=== PATIENT | female | born 1945 | race Caucasian/White ===

== ENCOUNTER → 2016-09-23 | Outpatient (CLI) | payer MEDICARE ==
--- NOTE | 2016-09-23 14:13 | XR ---
EXAMINATION TYPE: XR chest 2V DATE OF EXAM: 09/23/2016 2:06 PM COMPARISON: Chest x-ray June 26, 2016. HISTORY: Cough and congestion for 10 days possible pneumonia. TECHNIQUE: Frontal and lateral views of the chest are obtained. FINDINGS: There is no focal air space opacity, pleural effusion, or pneumothorax seen. The cardiac silhouette size is within normal limits with atherosclerotic thoracic aorta. The osseous structures are intact. IMPRESSION: No suspicious acute infiltrate is present. No significant change from prior.
== END | disposition home or self-care (01) ==
LOC: RADXRMAIN 13:47
PROVIDERS: ATTEND Family Medicine
DX: J18.9 Pneumonia, unspecified organism (principal)
CPT/HCPCS: 71020

== ENCOUNTER → 2016-10-03 | Outpatient (CLI) | payer MEDICARE ==
--- NOTE | 2016-10-03 14:23 | MR ---
EXAMINATION TYPE: MR lumbar spine wo con DATE OF EXAM: 10/03/2016 1:54 PM COMPARISON: NONE HISTORY: low back pain for years TECHNIQUE: Multiplanar, multisequence images of the lumbar spine were acquired. L1-L2: Normal disc appearance without desiccation. No herniation, protrusion or disc bulging. No ca nal stenosis is present. Foramina are patent bilaterally. L2-L3: Normal disc appearance without desiccation. No herniation, protrusion or disc bulging. No ca nal stenosis is present. Foramina are patent bilaterally. L3-L4: Facet arthropathy changes present with hypertrophy of the ligamentum flavum encroaching on the lateral recesses. Circumferential posterior disc bulge causes minimal anterior mass effect on the th ecal sac. L4-L5: Facet arthropathy changes with hypertrophy of the ligamentum flavum encroaches upon the latera l recesses. No significant central canal stenosis or sizable disc herniation. L5-S1: Normal disc appearance without desiccation. No herniation, protrusion or disc bulging. No ca nal stenosis is present. Foramina are patent bilaterally. Lumbar segments are intact. No paraspinal masses are identified. Conus medullaris has a normal appe arance. Mild anterolisthesis grade 1 L4-5. Loss of disc height and signal at L1-2, L3-4, L4-5 compati ble with disc desiccation and degenerative disc disease, there is multilevel spondylosis. Minimal end plate discogenic marrow signal change, spondylosis present at multiple levels. Probable parapelvic cysts involving the left kidney. IMPRESSION: Mild degenerative disc disease, facet arthropathy. No sizable disc herniation. Additional findings ab ove, spondylolisthesis L4-5. Correlate with plain film prior to any intervention.
== END | disposition home or self-care (01) ==
LOC: RADMRIMAIN 13:04
PROVIDERS: ATTEND Family Medicine
DX: M51.36 Other intervertebral disc degeneration, lumbar region (principal); M43.16 Spondylolisthesis, lumbar region; M46.96 Unspecified inflammatory spondylopathy, lumbar region
CPT/HCPCS: 72148

== ENCOUNTER → 2017-03-23 | Outpatient (CLI) | payer MEDICARE ==
--- NOTE | 2017-03-23 09:49 | USB ---
EXAMINATION TYPE: US breast complete RT DATE OF EXAM: 03/23/2017 COMPARISON: Mammogram dated 03/23/2017. CLINICAL HISTORY: N63 LUMP IN BREAST. Right breast ultrasound was performed from the 1:00 to 12:00 positions including the axillary tail. C orresponding to the palpable abnormality and mammographic abnormality with in the right breast, just deep to the skin there is a 0.5 x 0.4 x 0.5 cm anechoic, avascular cyst with a well-defined posterior wall and increased through transmission. This is located at the 1:00 position in zone a. This is a b enign finding warranting no further follow-up. Incidentally noted at the 10:00 position in zone a there is a benign-appearing anechoic cyst with a w ell-defined posterior wall measuring 3.5 x 0.6 cm. This is a benign finding and warrants no further f ollow-up. IMPRESSION: Benign findings. Recommendation is for annual screening mammography and clinical managem ent of the palpable cyst.
--- NOTE | 2017-03-27 09:45 | MM ---
Reason for exam: clinical finding. Last mammogram was performed 1 year and 6 months ago. History: Patient is postmenopausal. Family history of breast cancer in grandmother. Indicated problem(s): palpable abnormality in the right breast. Physical Findings: Nurse Summary: 0.5cm nodule in the right breast at 11-12 o'clock (nurse kerrie). MG 3D Diag Mammo W/Cad LUBNA Bilateral CC and MLO view(s) were taken. XCCL view(s) were taken of the left breast. Prior study comparison: September 10, 2015, bilateral MG 3d screening mammo w/cad. There are scattered fibroglandular densities. There is a 5mm lucent mass deep to the palpable marker corresponding to a benign sonographic cyst. These results were verbally communicated with the patient and result sheet given to the patient on 03/23/17. ASSESSMENT: Benign, BI-RAD 2 RECOMMENDATION: Routine screening mammogram of both breasts in 1 year.
== END | disposition home or self-care (01) ==
LOC: RADMAMWWP 08:43
PROVIDERS: ATTEND Family Medicine
DX: N63 Unspecified lump in breast (principal)
CPT/HCPCS: 76641; G0204; G0279

== ENCOUNTER → 2017-04-10 | Outpatient (CLI) | payer MEDICARE ==
--- NOTE | 2017-04-10 12:19 | XR ---
EXAMINATION TYPE: XR foot complete LT DATE OF EXAM: 04/10/2017 COMPARISON: NONE HISTORY: Three-view left foot TECHNIQUE: Left foot pain FINDINGS: No acute fractures evident. Plantar and Achilles tendon calcaneal heel spurs are present. S oft tissues are unremarkable. IMPRESSION: 1. No acute osseous abnormality left foot
== END | disposition home or self-care (01) ==
LOC: RADXRMAIN 11:55
PROVIDERS: ATTEND Family Medicine
DX: M79.672 Pain in left foot (principal)

== ENCOUNTER 2017-05-02 15:06 | Emergency (ER) | payer MEDICARE ==
[2017-05-02] MEDS ORDERED: SODIUM CHLORIDE 0.9% 1,000 ML IV STA (15:34)
[2017-05-02] MEDS ORDERED: MORPHINE SULFATE 4 MG/ML SYRINGE IV STA (15:34)
--- NOTE | 2017-05-02 15:45 | ED ---
General Adult HPI - General Chief complaint: Chest Pain Stated complaint: chest pains Time Seen by Provider: 05/02/17 15:34 Source: patient, RN notes reviewed, old records reviewed Mode of arrival: ambulatory Limitations: no limitations - History of Present Illness Initial comments: This is a 72-year-old female ER for evaluation. Patient evaluation regarding chest pain. Patient is also upper abdominal pain upper arm pain, abdominal pain radiating into back. Patient's history of multiple abdominal surgeries, as well as multiple medical histories including positive cardiac risk factors. Patient does have history of chest pain and angina. No recent fevers no travel history or sick contacts no cough or congestion. - Related Data Home Medications Medication Instructions Recorded Confirmed Fenofibrate [Lofibra] 160 mg PO DAILY 01/23/14 05/02/17 Gabapentin [Neurontin] 100 mg PO AC-BRKFST 01/23/14 05/02/17 Gabapentin [Neurontin] 200 mg PO HS 01/23/14 05/02/17 Omeprazole 40 mg PO DAILY 01/23/14 05/02/17 Triamterene/Hydrochlorothiazid 1 tab PO DAILY 01/23/14 05/02/17 [Triamterene-Hctz 37.5-25 mg Tb] HYDROcodone/APAP 10-325MG [[place] 1 tab PO Q8H PRN 09/03/14 05/02/17 10-325] Nortriptyline [Pamelor] 10 mg PO HS 10/22/14 05/02/17 Cholecalciferol [Vitamin D3] 5,000 unit PO DAILY 05/07/15 05/02/17 Losartan [Cozaar] 25 mg PO DAILY 05/07/15 05/02/17 rOPINIRole HCL [Requip] 1.5 mg PO HS 05/07/15 05/02/17 Niacin 500 mg PO DAILY 06/26/16 05/02/17 Previous Rx's Medication Instructions Recorded amLODIPine [Norvasc] 2.5 mg PO DAILY #30 tab 05/08/15 Naproxen [Naprosyn] 250 mg PO BID #60 tab 06/26/16 Allergies Allergy/AdvReac Type Severity Reaction Status Date / Time Penicillins Allergy Rash/Hives Verified 05/02/17 15:48 Milk Containing Products AdvReac Nausea Verified 05/02/17 15:48 [Dairy] Review of Systems ROS Statement: Those systems with pertinent positive or pertinent negative responses have been documented in the HPI. ROS Other: All systems not noted in ROS Statement are negative. Past Medical History Past Medical History: Chest Pain / Angina, GERD/Reflux, Hypertension Additional Past Medical History / Comment(s): Other HX: intestinal adhesions, RESTLESS LEG, HERNIA, MENIERES, DIVERTICULITIS, HX GLAUCOMA R eye, NEUROPATHY. 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 History of Any Multi-Drug Resistant Organisms: None Reported Past Surgical History: Appendectomy, Bladder Surgery, Bowel Resection, Cholecystectomy, Ear Surgery, Heart Catheterization, Hernia Repair, Hysterectomy , Joint Replacement, Orthopedic Surgery, Tonsillectomy, Tubal Ligation Additional Past Surgical History / Comment(s): 11/03/14 diagnostic laparoscopy with lysis of adhesions. LUBNA KNEE REPLACEMENT, EYE surgery for cataracts bilaterally with lens implants, TUBE IN RIGHT EAR FOR MENIERES, SX ON LEFT THUMB , hiatal. hernia repair, abdominal ventral hernia repair, cardiac cath in her 30's which was negative. Past Anesthesia/Blood Transfusion Reactions: Motion Sickness, Postoperative Nausea & Vomiting (PONV) Additional Past Anesthesia/Blood Transfusion Reaction / Comment(s): MENIERE'S, STATES "JAW LOCKED UP AFTER PREVIOUS INTUBATION" Past Psychological History: Depression Smoking Status: Former smoker Past Alcohol Use History: None Reported Past Drug Use History: None Reported - Past Family History Brother(s) Family Medical History: Cancer Mother Family Medical History: Cancer, CVA/TIA, Diabetes Mellitus, Deep Vein Thrombosis (DVT) Additional Family Medical History / Comment(s): STOMACH CANCER Father Family Medical History: No Reported History Additional Family Medical History / Comment(s): COMMITTED SUICIDE General Exam Limitations: no limitations General appearance: alert, in no apparent distress Head exam: Present: atraumatic, normocephalic, normal inspection Eye exam: Present: normal appearance, PERRL, EOMI. Absent: scleral icterus, conjunctival injection, periorbital swelling ENT exam: Present: normal exam, mucous membranes moist Neck exam: Present: normal inspection. Absent: tenderness, meningismus, lymphadenopathy Respiratory exam: Present: normal lung sounds bilaterally. Absent: respiratory distress, wheezes, rales, rhonchi, stridor Cardiovascular Exam: Present: regular rate, normal rhythm, normal heart sounds. Absent: systolic murmur, diastolic murmur, rubs, gallop, clicks GI/Abdominal exam: Present: soft, normal bowel sounds. Absent: distended, tenderness, guarding, rebound, rigid Extremities exam: Present: normal inspection, full ROM, normal capillary refill. Absent: tenderness, pedal edema, joint swelling, calf tenderness Back exam: Present: normal inspection Neurological exam: Present: alert, oriented X3, CN II-XII intact Psychiatric exam: Present: normal affect, normal mood Skin exam: Present: warm, dry, intact, normal color. Absent: rash Course Vital Signs 05/02/17 05/02/17 15:12 15:56 Temperature 98.1 F Pulse Rate 94 98 Respiratory 20 20 Rate Blood Pressure 134/79 151/77 O2 Sat by Pulse 100 98 Oximetry EKG Findings - EKG Comments: EKG Findings:: EKG shows normal sinus rhythm is 70, MD 140, QRS 80, QTC 447 Medical Decision Making - Lab Data Result diagrams: 05/02/17 15:43 05/02/17 15:43 Lab Results 05/02/17 05/02/17 05/02/17 Range/Units 15:43 15:43 15:43 WBC 7.8 (3.8-10.6) k/uL RBC 4.80 (3.80-5.40) m/uL Hgb 13.7 (11.4-16.0) gm/dL Hct 40.0 (34.0-46.0) % MCV 83.4 (80.0-100.0) fL MCH 28.5 (25.0-35.0) pg MCHC 34.1 (31.0-37.0) g/dL RDW 14.2 (11.5-15.5) % Plt Count 210 (150-450) k/uL Neutrophils % 66 % Lymphocytes % 27 % Monocytes % 4 % Eosinophils % 2 % Basophils % 1 % Neutrophils # 5.2 (1.3-7.7) k/uL Lymphocytes # 2.1 (1.0-4.8) k/uL Monocytes # 0.3 (0-1.0) k/uL Eosinophils # 0.2 (0-0.7) k/uL Basophils # 0.1 (0-0.2) k/uL PT (9.0-12.0) sec INR (<1.2) APTT (22.0-30.0) sec D-Dimer (<0.60) mg/L FEU Sodium 141 (137-145) mmol/L Potassium 3.9 (3.5-5.1) mmol/L Chloride 100 (98-107) mmol/L Carbon Dioxide 27 (22-30) mmol/L Anion Gap 14 mmol/L BUN 20 H (7-17) mg/dL Creatinine 1.00 (0.52-1.04) mg/dL Est GFR (MDRD) Af Amer >60 (>60 ml/min/1.73 sqM) Est GFR (MDRD) Non-Af 55 (>60 ml/min/1.73 sqM) Glucose 141 H (74-99) mg/dL Calcium 10.5 H (8.4-10.2) mg/dL Magnesium 1.8 (1.6-2.3) mg/dL Total Bilirubin 0.6 (0.2-1.3) mg/dL AST 62 H (14-36) U/L ALT 84 H (9-52) U/L Alkaline Phosphatase 91 (38-126) U/L Total Creatine Kinase 55 (30-135) U/L CK-MB (CK-2) 1.1 (0.0-2.4) ng/mL CK-MB (CK-2) Rel Index 2.0 Troponin I <0.012 (0.000-0.034) ng/mL Total Protein 8.0 (6.3-8.2) g/dL Albumin 4.8 (3.5-5.0) g/dL Lipase 99 (23-300) U/L 05/02/17 Range/Units 15:43 WBC (3.8-10.6) k/uL RBC (3.80-5.40) m/uL Hgb (11.4-16.0) gm/dL Hct (34.0-46.0) % MCV (80.0-100.0) fL MCH (25.0-35.0) pg MCHC (31.0-37.0) g/dL RDW (11.5-15.5) % Plt Count (150-450) k/uL Neutrophils % % Lymphocytes % % Monocytes % % Eosinophils % % Basophils % % Neutrophils # (1.3-7.7) k/uL Lymphocytes # (1.0-4.8) k/uL Monocytes # (0-1.0) k/uL Eosinophils # (0-0.7) k/uL Basophils # (0-0.2) k/uL PT 10.7 (9.0-12.0) sec INR 1.1 (<1.2) APTT 21.8 L (22.0-30.0) sec D-Dimer 0.46 (<0.60) mg/L FEU Sodium (137-145) mmol/L Potassium (3.5-5.1) mmol/L Chloride (98-107) mmol/L Carbon Dioxide (22-30) mmol/L Anion Gap mmol/L BUN (7-17) mg/dL Creatinine (0.52-1.04) mg/dL Est GFR (MDRD) Af Amer (>60 ml/min/1.73 sqM) Est GFR (MDRD) Non-Af (>60 ml/min/1.73 sqM) Glucose (74-99) mg/dL Calcium (8.4-10.2) mg/dL Magnesium (1.6-2.3) mg/dL Total Bilirubin (0.2-1.3) mg/dL AST (14-36) U/L ALT (9-52) U/L Alkaline Phosphatase (38-126) U/L Total Creatine Kinase (30-135) U/L CK-MB (CK-2) (0.0-2.4) ng/mL CK-MB (CK-2) Rel Index Troponin I (0.000-0.034) ng/mL Total Protein (6.3-8.2) g/dL Albumin (3.5-5.0) g/dL Lipase (23-300) U/L Disposition Clinical Impression: Ileus Disposition: HOME SELF-CARE Condition: Good Instructions: Ileus (ED) Referrals: Damir Hernandez DO [Primary Care Provider] - 1-2 days
[2017-05-02] MEDS ORDERED: ONDANSETRON 4 MG/2 ML VIAL IVP STA (15:57)
[2017-05-02 16:00] LABS: Basophils # (A) 0.1 k/uL (0-0.2); Basophils % (A) 1 %; CH 28.7; CHCM 34.6; Eosinophils # (A) 0.2 k/uL (0-0.7); Eosinophils % (A) 2 %; HDW 3.19; HGB 13.7 gm/dL (11.4-16.0); Luc # (Auto) 0.06; Luc % (Auto) 1; Lymphocytes # (A) 2.1 k/uL (1.0-4.8); Lymphocytes % (A) 27 %; MCH 28.5 pg (25.0-35.0); MCHC 34.1 g/dL (31.0-37.0); MCV 83.4 fL (80.0-100.0); Mean Platelet Volume 7.4; Monocytes # (A) 0.3 k/uL (0-1.0); Monocytes % (A) 4 %; Neutrophils # (A) 5.2 k/uL (1.3-7.7); Neutrophils % (A) 66 %; RDW 14.2 % (11.5-15.5); WBC 7.8 k/uL (3.8-10.6); WBC (Perox) 8.08
--- NOTE | 2017-05-02 16:10 | XR ---
EXAMINATION TYPE: XR chest 2V DATE OF EXAM: 05/02/2017 COMPARISON: 09/23/2016 TECHNIQUE: PA and lateral views submitted. HISTORY: Chest pain FINDINGS: The lungs are clear and there is no pneumothorax, pleural effusion, or focal pneumonia. Atheroscler otic change aorta. Degenerative change of the spine. IMPRESSION: 1. No acute process.
[2017-05-02] MEDS ORDERED: RX INFO: IV CONTRAST WAS GIVEN 1 EACH MISC MISCELLANE PRN (16:12)
[2017-05-02 16:13] LABS: ALT 84 U/L (9-52); AST 62 U/L (14-36); Alkaline Phosphatase 91 U/L (38-126); Anion Gap 14 mmol/L; Blood Urea Nitrogen 20 mg/dL (7-17); Calcium 10.5 mg/dL (8.4-10.2); Carbon Dioxide 27 mmol/L (22-30); Chloride 100 mmol/L (98-107); Creatine Kinase 55 U/L (30-135); Glucose 141 mg/dL (74-99); Magnesium 1.8 mg/dL (1.6-2.3); Non-African American GFR(MDRD) 55 (>60 ml/min/1.73 sqM); Potassium 3.9 mmol/L (3.5-5.1); Sodium 141 mmol/L (137-145); Total Bilirubin 0.6 mg/dL (0.2-1.3)
[2017-05-02 16:25] LABS: INR 1.1 (<1.2); Partial Thromboplastin Time 21.8 sec (22.0-30.0); Prothrombin Time 10.7 sec (9.0-12.0)
[2017-05-02 16:26] LABS: Creatine Kinase MB 1.1 ng/mL (0.0-2.4); Troponin I <0.012 ng/mL (0.000-0.034)
--- NOTE | 2017-05-02 16:52 | CT ---
EXAMINATION TYPE: CT abdomen pelvis w con DATE OF EXAM: 05/02/2017 COMPARISON: 04/24/2014 HISTORY: ABDOMINAL PAIN RADIATING SUPERIORLY. CT DLP: 1090.6 mGycm Automated exposure control for dose reduction was used. TECHNIQUE: Helical acquisition of images was performed from the lung bases through the pelvis. CONTRAST: Performed without Oral Contrast and with IV Contrast, patient injected with 80 mL of Visipaque 320. FINDINGS: Lung bases are clear of consolidation. There is no pleural effusion. There is a large hiatal hernia. Liver shows normal size and contour. Bile ducts are not dilated. Cholecystectomy is noted. Spleen radha sures 12.5 cm. There is no evidence of pancreatic mass. There is no adrenal mass. Kidneys show satisfactory contrast opacification. There is no hydronephrosi s. There is no sign of appendicitis. There are surgical clips in the anterior abdomen consistent with hernia surgery. I see no sign of bowel obstruction. There are multiple sigmoid diverticula. There is no sign of diverticulitis. There are surgical clips in the pelvis. Bladder distends smoothly. There is no pelvic mass. There is no retroperitoneal adenopathy. There is no ascites. There are some spondy lotic changes in the lumbar spine. There are a few small bowel loops that measure up to 2.5 cm with f luid levels. IMPRESSION: LARGE HIATAL HERNIA. MILD SMALL BOWEL ILEUS APPEARS NEW COMPARED TO OLD EXAM. NO SIGN OF A MECHANICAL BOWEL OBSTRUCTION. SIGMOID DIVERTICULOSIS WITHOUT SIGN OF DIVERTICULITIS.
[2017-05-02 17:17] VITALS: BP 133/66; PULSE 96; RESP 18; TEMP 97.7
== END 2017-05-02 17:16 | disposition home or self-care (01) ==
LOC: EC 15:06
DX: K56.7 Ileus, unspecified (principal); R07.9 Chest pain, unspecified; I10 Essential (primary) hypertension; K21.9 Gastro-esophageal reflux disease without esophagitis; G25.81 Restless legs syndrome; F32.9 Major depressive disorder, single episode, unspecified; Z87.891 Personal history of nicotine dependence; Z86.2 Personal history of diseases of the blood and blood-forming organs and certain disorders involving the immune mechanism; Z87.19 Personal history of other diseases of the digestive system; Z90.49 Acquired absence of other specified parts of digestive tract; Z98.51 Tubal ligation status; Z98.890 Other specified postprocedural states; Z88.0 Allergy status to penicillin; Z91.011 Allergy to milk products; Z79.899 Other long term (current) drug therapy
CPT/HCPCS: 36415; 93005; 85379; 80053; 82550; 82553; 83690; 83735; 84484; 85025; 85610; 85730; 71020; 74177; 99285; 96374; 96375; 96361; J2270; Q9967; J2405

== ENCOUNTER 2017-05-02 20:55 | Inpatient (IN) | payer MEDICARE ==
[2017-05-02] MEDS ORDERED: ONDANSETRON 4 MG/2 ML VIAL IVP STA (22:04)
[2017-05-02] MEDS ORDERED: MORPHINE SULFATE 2 MG/ML SYRINGE IVP ONE (22:05)
[2017-05-02] MEDS ORDERED: SODIUM CHLORIDE 0.9% 500 ML IV STA (22:05)
[2017-05-02 22:49] LABS: Basophils # (A) 0.1 k/uL (0-0.2); Basophils % (A) 1 %; CH 29.5; CHCM 34.9; Eosinophils # (A) 0.1 k/uL (0-0.7); Eosinophils % (A) 1 %; HCT 41.3 % (34.0-46.0); HDW 3.14; HGB 14.4 gm/dL (11.4-16.0); Luc % (Auto) 1; Lymphocytes # (A) 1.7 k/uL (1.0-4.8); Lymphocytes % (A) 17 %; MCH 29.7 pg (25.0-35.0); MCHC 34.9 g/dL (31.0-37.0); MCV 85.1 fL (80.0-100.0); Mean Platelet Volume 9.4; Monocytes # (A) 0.3 k/uL (0-1.0); Monocytes % (A) 3 %; Neutrophils # (A) 7.6 k/uL (1.3-7.7); Neutrophils % (A) 76 %; RBC 4.86 m/uL (3.80-5.40); RDW 15.2 % (11.5-15.5); WBC (Perox) 9.95
[2017-05-02 22:56] LABS: ALT 89 U/L (9-52); AST 70 U/L (14-36); Alkaline Phosphatase 101 U/L (38-126); Amylase 217 U/L (30-110); Anion Gap 15 mmol/L; Blood Urea Nitrogen 21 mg/dL (7-17); Calcium 10.6 mg/dL (8.4-10.2); Carbon Dioxide 25 mmol/L (22-30); Chloride 98 mmol/L (98-107); Glucose 190 mg/dL (74-99); Non-African American GFR(MDRD) 55 (>60 ml/min/1.73 sqM); Potassium 4.1 mmol/L (3.5-5.1); Sodium 138 mmol/L (137-145); Total Bilirubin 0.9 mg/dL (0.2-1.3); Total Protein 8.3 g/dL (6.3-8.2)
[2017-05-02 23:15] LABS: Creatine Kinase 52 U/L (30-135)
--- NOTE | 2017-05-02 23:17 | ED ---
General Adult HPI - General Chief complaint: Nausea/Vomiting/Diarrhea Stated complaint: Abd pain-revisit Time Seen by Provider: 05/02/17 21:57 Source: patient Mode of arrival: ambulatory Limitations: no limitations - History of Present Illness Initial comments: 72-year-old female patient presents to emergency department today for evaluation of generalized abdominal pain with radiation to her back. Patient was seen and evaluated here earlier for chest pain and abdominal pain, it was recommended that she be admitted however patient wanted to attempt home treatment. Patient states that when she arrived home she tried to drink some water and take pain medication however immediately vomited after this. Patient states that she has had 5 episodes of vomiting since being home and the pain has increased. Patient states when the pain is at its worst she becomes short of breath. She denies any chest pain however states that there is pain between her shoulder blades. Patient states that she has been having normal bowel movements, denies any hematuria, dysuria, urinary frequency or urinary urgency. Patient denies any recent fever, chills, numbness, tingling, weakness, headache , visual changes, or any other complaints. - Related Data Home Medications Medication Instructions Recorded Confirmed Fenofibrate [Lofibra] 160 mg PO DAILY 01/23/14 05/02/17 Gabapentin [Neurontin] 100 mg PO AC-BRKFST 01/23/14 05/02/17 Gabapentin [Neurontin] 200 mg PO HS 01/23/14 05/02/17 Omeprazole 40 mg PO DAILY 01/23/14 05/02/17 Triamterene/Hydrochlorothiazid 1 tab PO DAILY 01/23/14 05/02/17 [Triamterene-Hctz 37.5-25 mg Tb] HYDROcodone/APAP 10-325MG [[place] 1 tab PO Q8H PRN 09/03/14 05/02/17 10-325] Nortriptyline [Pamelor] 10 mg PO HS 10/22/14 05/02/17 Cholecalciferol [Vitamin D3] 5,000 unit PO DAILY 05/07/15 05/02/17 Losartan [Cozaar] 25 mg PO DAILY 05/07/15 05/02/17 rOPINIRole HCL [Requip] 1.5 mg PO HS 05/07/15 05/02/17 Niacin 500 mg PO DAILY 06/26/16 05/02/17 Previous Rx's Medication Instructions Recorded amLODIPine [Norvasc] 2.5 mg PO DAILY #30 tab 05/08/15 Naproxen [Naprosyn] 250 mg PO BID #60 tab 06/26/16 Ondansetron [Zofran] 4 mg PO Q8HR PRN #30 tab 05/02/17 Allergies Allergy/AdvReac Type Severity Reaction Status Date / Time Penicillins Allergy Rash/Hives Verified 05/02/17 21:40 Milk Containing Products AdvReac Nausea Verified 05/02/17 21:40 [Dairy] Review of Systems ROS Statement: Those systems with pertinent positive or pertinent negative responses have been documented in the HPI. ROS Other: All systems not noted in ROS Statement are negative. Past Medical History Past Medical History: Chest Pain / Angina, GERD/Reflux, Hypertension Additional Past Medical History / Comment(s): Other HX: intestinal adhesions, RESTLESS LEG, HERNIA, MENIERES, DIVERTICULITIS, HX GLAUCOMA R eye, NEUROPATHY. 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 History of Any Multi-Drug Resistant Organisms: None Reported Past Surgical History: Appendectomy, Bladder Surgery, Bowel Resection, Cholecystectomy, Ear Surgery, Heart Catheterization, Hernia Repair, Hysterectomy , Joint Replacement, Orthopedic Surgery, Tonsillectomy, Tubal Ligation Additional Past Surgical History / Comment(s): 11/03/14 diagnostic laparoscopy with lysis of adhesions. LUBNA KNEE REPLACEMENT, EYE surgery for cataracts bilaterally with lens implants, TUBE IN RIGHT EAR FOR MENIERES, SX ON LEFT THUMB , hiatal. hernia repair, abdominal ventral hernia repair, cardiac cath in her 30's which was negative. Past Anesthesia/Blood Transfusion Reactions: Motion Sickness, Postoperative Nausea & Vomiting (PONV) Additional Past Anesthesia/Blood Transfusion Reaction / Comment(s): MENIERE'S, STATES "JAW LOCKED UP AFTER PREVIOUS INTUBATION" Past Psychological History: Depression Smoking Status: Former smoker Past Alcohol Use History: None Reported Past Drug Use History: None Reported - Past Family History Brother(s) Family Medical History: Cancer Mother Family Medical History: Cancer, CVA/TIA, Diabetes Mellitus, Deep Vein Thrombosis (DVT) Additional Family Medical History / Comment(s): STOMACH CANCER Father Family Medical History: No Reported History Additional Family Medical History / Comment(s): COMMITTED SUICIDE General Exam Limitations: no limitations General appearance: alert, in no apparent distress Head exam: Present: atraumatic, normocephalic, normal inspection Eye exam: Present: normal appearance, PERRL, EOMI. Absent: scleral icterus, conjunctival injection, periorbital swelling ENT exam: Present: normal exam, normal oropharynx, mucous membranes moist Neck exam: Present: normal inspection. Absent: tenderness, meningismus, lymphadenopathy Respiratory exam: Present: normal lung sounds bilaterally. Absent: respiratory distress, wheezes, rales, rhonchi, stridor Cardiovascular Exam: Present: regular rate, normal rhythm, normal heart sounds. Absent: systolic murmur, diastolic murmur, rubs, gallop, clicks GI/Abdominal exam: Present: soft, tenderness (Upper abdominal tenderness), normal bowel sounds. Absent: distended, guarding, rebound, rigid Extremities exam: Present: normal inspection, full ROM, normal capillary refill. Absent: tenderness, pedal edema, joint swelling, calf tenderness Back exam: Present: normal inspection Neurological exam: Present: alert, oriented X3, CN II-XII intact Psychiatric exam: Present: normal affect, normal mood Skin exam: Present: warm, dry, intact, normal color. Absent: rash Course Vital Signs 05/02/17 05/02/17 05/03/17 21:10 23:05 00:12 Temperature 98.2 F 97.9 F Pulse Rate 99 79 87 Respiratory 20 16 18 Rate Blood Pressure 135/69 115/70 156/67 O2 Sat by Pulse 98 99 100 Oximetry Medical Decision Making - Medical Decision Making 72-year-old female patient presented to emergency department today with complaints of generalized abdominal pain radiating to her back. Lab work was reviewed and did show elevated liver enzymes, blood sugar of 190, amylase of 217 , lipase 2383. Patient does have chronic transaminitis and is evaluated outpatient for this by Dr. Dewey. Patient was seen here as a patient earlier today and did receive a CT of her abdomen and pelvis with contrast this showed a large hiatal hernia, mild small bowel ileus which appears new, no sign of a mechanical bowel obstruction, sigmoid diverticulosis without signs of diverticulitis. Chest xray was also obtained earlier and showed no acute process. EKG obtained tonight reveals normal sinus rhythm with a rate of 91. Patient was given IV fluids, pain medication, nausea medication here in the department, symptoms are improved somewhat. Patient will be admitted to Dr. Molina's service with a gastroenterology consult. She'll be given a another fluid bolus, placed on normal saline, patient made nothing by mouth. Patient does see Dr. Dewey outpatient so she will be consulted here as well. Patient verbalizes understanding and agrees with this plan. - Lab Data Result diagrams: 05/02/17 22:32 05/02/17 22:32 Lab Results 05/02/17 05/02/17 05/02/17 Range/Units 22:32 22:32 22:32 WBC 10.0 (3.8-10.6) k/uL RBC 4.86 (3.80-5.40) m/uL Hgb 14.4 (11.4-16.0) gm/dL Hct 41.3 (34.0-46.0) % MCV 85.1 (80.0-100.0) fL MCH 29.7 (25.0-35.0) pg MCHC 34.9 (31.0-37.0) g/dL RDW 15.2 (11.5-15.5) % Plt Count 130 L (150-450) k/uL Neutrophils % 76 % Lymphocytes % 17 % Monocytes % 3 % Eosinophils % 1 % Basophils % 1 % Neutrophils # 7.6 (1.3-7.7) k/uL Lymphocytes # 1.7 (1.0-4.8) k/uL Monocytes # 0.3 (0-1.0) k/uL Eosinophils # 0.1 (0-0.7) k/uL Basophils # 0.1 (0-0.2) k/uL Sodium 138 (137-145) mmol/L Potassium 4.1 (3.5-5.1) mmol/L Chloride 98 (98-107) mmol/L Carbon Dioxide 25 (22-30) mmol/L Anion Gap 15 mmol/L BUN 21 H (7-17) mg/dL Creatinine 1.00 (0.52-1.04) mg/dL Est GFR (MDRD) Af Amer >60 (>60 ml/min/1.73 sqM) Est GFR (MDRD) Non-Af 55 (>60 ml/min/1.73 sqM) Glucose 190 H (74-99) mg/dL Calcium 10.6 H (8.4-10.2) mg/dL Total Bilirubin 0.9 (0.2-1.3) mg/dL AST 70 H (14-36) U/L ALT 89 H (9-52) U/L Alkaline Phosphatase 101 (38-126) U/L Total Creatine Kinase 52 (30-135) U/L CK-MB (CK-2) 1.4 (0.0-2.4) ng/mL CK-MB (CK-2) Rel Index 2.7 Troponin I <0.012 (0.000-0.034) ng/mL Total Protein 8.3 H (6.3-8.2) g/dL Albumin 5.1 H (3.5-5.0) g/dL Amylase 217 H (30-110) U/L Lipase 2383 H (23-300) U/L - Radiology Data Radiology results: report reviewed Disposition Clinical Impression: Pancreatitis, Vomiting, Ileus Disposition: ADMITTED IP TO THIS [facility] Condition: Fair Decision to Admit Reason: Admit from EC Decision Date: 05/03/17 Decision Time: 00:05
[2017-05-02 23:28] LABS: Creatine Kinase MB 1.4 ng/mL (0.0-2.4); Troponin I <0.012 ng/mL (0.000-0.034)
[2017-05-02] MEDS ORDERED: NALOXONE 0.4 MG/ML 1 ML VIAL IV PRN (23:49)
[2017-05-03] MEDS ORDERED: SODIUM CHLORIDE 0.9% 1,000 ML IV STA (00:02)
[2017-05-03] MEDS: HYDROmorphone 1 MG/ML 1 ML SYRINGE IVP PRN ×7 (00:08→23:44)
[2017-05-03] MEDS: ONDANSETRON 4 MG/2 ML VIAL IVP PRN ×4 (00:08→23:48)
[2017-05-03 01:20] LABS: Glucose,Whole Blood 156 mg/dL (75-99)
[2017-05-03] MEDS: SODIUM CHLORIDE 0.9% 1,000 ML IV SCH ×3 (03:32→18:31)
[2017-05-03 07:42] LABS: Glucose,Whole Blood 131 mg/dL (75-99)
[2017-05-03] MEDS ORDERED: CHOLECALCIFEROL 1,000 UNIT TAB PO SCH (09:00)
[2017-05-03] MEDS ORDERED: PANTOPRAZOLE 40 MG TABLET PO SCH (09:00)
[2017-05-03] MEDS ORDERED: TRIAMTERENE-HCTZ 37.5-25MG 1 EACH TAB PO SCH (09:00)
[2017-05-03] MEDS ORDERED: ENOXAPARIN 40 MG/0.4 ML SYRINGE SQ SCH (09:00)
[2017-05-03] MEDS: NIACIN TR 500 MG CAPSULE.ER PO SCH (09:59)
[2017-05-03] MEDS: FENOFIBRATE 160 MG TAB PO SCH (09:59)
[2017-05-03] MEDS: amLODIPine 2.5 MG TAB PO SCH (09:59)
--- NOTE | 2017-05-03 10:16 | P.CONS ---
History of Present Illness - Reason for Consult Consult date: 05/03/17 Pancreatitis Requesting physician: Jim Molina - History of Present Illness 72-year-old female with a history of laparoscopic paraesophageal hiatal hernia repair 2013, GERD, diverticulosis, gout, dyslipidemia, morbid obesity, diabetes mellitus type 2, open cholecystectomy/cholelithiasis, open colon resection, appendectomy, hypertension. Presents to the hospital with generalized abdominal pain radiating to her back with nonbloody emesis and intense "heartburn" over the last few weeks. No fever chills hematemesis hematochezia melena. CT abdomen and pelvis with IV contrast reported large hiatal hernia. Bile duct is not dilated. Postcholecystectomy. No evidence of pancreatic mass. No ascites. Few small bowel loops measuring up to 2.5 cm of fluid levels possible ileus. Admission lipase 99 but then increase to 2383. Amylase 217. Total bilirubin 0.6-0.9. AST 62-70. ALT 84-89. Alkaline phosphatase 91-101. History of alcoholism medication changes or pancreatitis. Review of Systems Constitutional: Denies fever, chills, sweats, weight gain, or loss. HEENT: Negative for migraines, blurred vision or loss, earaches, drainage, tinnitus, oral mucosal lesions, dysphagia, or odynophagia. CARDIAC: Hypertension. Negative for chest pain, arrhythmias, or palpitation. RESPIRATORY: Negative for shortness of breath, hemoptysis, cough, or sputum production. GI: See HPI for pertinent findings. : Negative for hematuria, urgency, frequency, polyuria, or dysuria. GYNc: Denies possibility of . Negative vaginal discharge. MUSCULOSKELETAL: Neuropathy. Negative for muscle aches, swelling, arthritis, and arthralgias. NEUROLOGIC: Negative for stroke or TIA. ENDOCRINE: Negative for thyroid problems. SKIN: Negative for rash or itching. PSYCHIATRIC: Negative history for depression and anxiety All systems: negative (See HPI) Past Medical History Past Medical History: Chest Pain / Angina, GERD/Reflux, Hypertension Additional Past Medical History / Comment(s): Other HX: intestinal adhesions, RESTLESS LEG, HERNIA, MENIERES, DIVERTICULITIS, HX GLAUCOMA R eye, NEUROPATHY. 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 History of Any Multi-Drug Resistant Organisms: None Reported Past Surgical History: Appendectomy, Bladder Surgery, Bowel Resection, Cholecystectomy, Ear Surgery, Heart Catheterization, Hernia Repair, Hysterectomy , Joint Replacement, Orthopedic Surgery, Tonsillectomy, Tubal Ligation Additional Past Surgical History / Comment(s): 11/03/14 diagnostic laparoscopy with lysis of adhesions. LUBNA KNEE REPLACEMENT, EYE surgery for cataracts bilaterally with lens implants, TUBE IN RIGHT EAR FOR MENIERES, SX ON LEFT THUMB , hiatal. hernia repair, abdominal ventral hernia repair, cardiac cath in her 30's which was negative. Past Anesthesia/Blood Transfusion Reactions: Motion Sickness, Postoperative Nausea & Vomiting (PONV) Additional Past Anesthesia/Blood Transfusion Reaction / Comm: MENIERE'S, STATES "JAW LOCKED UP AFTER PREVIOUS INTUBATION" Past Psychological History: Depression Additional Psychological History / Comment(s): Pt lives alone in her apt is independant uses no assistive devices. She drives a car. 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 Smoking Status: Former smoker Past Alcohol Use History: None Reported Additional Past Alcohol Use History / Comment(s): smoked x 5 years off and on l; ess then a ppd, quit 30 years ago Past Drug Use History: None Reported - Past Family History Brother(s) Family Medical History: Cancer Mother Family Medical History: Cancer, CVA/TIA, Diabetes Mellitus, Deep Vein Thrombosis (DVT) Additional Family Medical History / Comment(s): STOMACH CANCER Father Family Medical History: No Reported History Additional Family Medical History / Comment(s): COMMITTED SUICIDE Medications and Allergies Home Medications Medication Instructions Recorded Confirmed Type Fenofibrate [Lofibra] 160 mg PO DAILY 01/23/14 05/03/17 History Gabapentin [Neurontin] 200 mg PO HS 01/23/14 05/03/17 History Omeprazole 40 mg PO DAILY 01/23/14 05/03/17 History Triamterene/Hydrochlorothiazid 1 tab PO DAILY 01/23/14 05/03/17 History [Triamterene-Hctz 37.5-25 mg Tb] HYDROcodone/APAP 10-325MG [[place] 1 tab PO Q8H PRN 09/03/14 05/03/17 History 10-325] Nortriptyline [Pamelor] 10 mg PO HS 10/22/14 05/03/17 History Cholecalciferol [Vitamin D3] 5,000 unit PO DAILY 05/07/15 05/03/17 History rOPINIRole HCL [Requip] 1.5 mg PO HS 05/07/15 05/03/17 History amLODIPine [Norvasc] 2.5 mg PO DAILY #30 tab 05/08/15 05/03/17 Rx Naproxen [Naprosyn] 250 mg PO BID #60 tab 06/26/16 05/03/17 Rx Niacin 500 mg PO DAILY 06/26/16 05/03/17 History Ondansetron [Zofran] 4 mg PO Q8HR PRN #30 tab 05/02/17 05/03/17 Rx Allergies Allergy/AdvReac Type Severity Reaction Status Date / Time Penicillins Allergy Rash/Hives Verified 05/02/17 21:40 Milk Containing Products AdvReac Nausea Verified 05/02/17 21:40 [Dairy] Physical Exam Vitals: Vital Signs Temp Pulse Pulse Resp BP BP Pulse Ox 05/03/17 07:00 96.9 F L 94 18 116/61 93 L 05/03/17 01:38 98.2 F 97 20 156/79 94 L 05/03/17 00:12 97.9 F 87 18 156/67 100 05/02/17 23:05 79 16 115/70 99 05/02/17 21:10 98.2 F 99 20 135/69 98 Intake and Output 05/02/17 05/03/17 05/03/17 22:59 06:59 14:59 Intake Total 0 Balance 0 Intake: Oral 0 Other: Voiding Method Toilet # Voids 2 Weight 83.007 kg 74 kg General appearance: The patient is alert, oriented, in no acute distress. HET: Head is normocephalic and atraumatic. Pupils are equal and reactive. Oropharynx is clear without lesions. Neck: Supple without lymphadenopathy. Trachea midline. Heart: S1 S2. Regular rate and rhythm. Lungs: No crackles or wheezes are heard. Abdomen: Soft, midepigastric tenderness nondistended with bowel sounds. No peritoneal signs. No palpable organomegaly or masses. Extremities: Normal skin color and turgor. No cyanosis, rash, ulceration, clubbing, or edema. Radial and pedal pulses are 2/4 bilaterally. Neurological: No focal deficits. Strength and sensation are grossly intact. Results CBC & Chem 7: 05/03/17 10:11 05/03/17 10:11 Labs: Abnormal Lab Results - Last 24 Hours (Table) 05/02/17 05/02/17 05/03/17 Range/Units 22:32 22:32 01:16 Plt Count 130 L (150-450) k/uL BUN 21 H (7-17) mg/dL Glucose 190 H (74-99) mg/dL POC Glucose (mg/dL) 156 H (75-99) mg/dL Calcium 10.6 H (8.4-10.2) mg/dL AST 70 H (14-36) U/L ALT 89 H (9-52) U/L Total Protein 8.3 H (6.3-8.2) g/dL Albumin 5.1 H (3.5-5.0) g/dL Amylase 217 H (30-110) U/L Lipase 2383 H (23-300) U/L 05/03/17 Range/Units 07:40 Plt Count (150-450) k/uL BUN (7-17) mg/dL Glucose (74-99) mg/dL POC Glucose (mg/dL) 131 H (75-99) mg/dL Calcium (8.4-10.2) mg/dL AST (14-36) U/L ALT (9-52) U/L Total Protein (6.3-8.2) g/dL Albumin (3.5-5.0) g/dL Amylase (30-110) U/L Lipase (23-300) U/L CT scan - abdomen: report reviewed (Dr. Huynh) Assessment and Plan (1) Pancreatitis Narrative/Plan: Acute pancreatitis differentials include peptic ulcer disease possible evolving choledocholithiasis. Status: Acute Plan: 1. IV hydration. Repeat pancreatic enzymes. Check CMP. Supportive measures. Check triglycerides. EGD evaluation once pancreatic enzymes show improvement to rule out peptic ulcer disease. If EGD is unremarkable abdominal imaging will be considered for etiology of pancreatitis. Will follow with you. The liquefaction supervisor has discussed the risks, benefits and alternative therapies for the above-mentioned procedure and for both sedation/analgesia as well as necessary blood product administration, if indicated, as they pertain to this patient. The patient has indicated understanding and acceptance of the risks and procedures discussed. Thank you for this kind referral and the opportunity to participate in the care of your patient. This consultation was discussed with Dr. Huynh. The impression and plan of care have been directed as dictated.
[2017-05-03 10:34] LABS: Basophils % (A) 1 %; CH 29.4; CHCM 34.5; Eosinophils # (A) 0.1 k/uL (0-0.7); Eosinophils % (A) 2 %; HCT 37.4 % (34.0-46.0); HDW 3.15; HGB 12.5 gm/dL (11.4-16.0); Luc % (Auto) 2; Lymphocytes # (A) 1.6 k/uL (1.0-4.8); Lymphocytes % (A) 25 %; MCH 28.7 pg (25.0-35.0); MCHC 33.5 g/dL (31.0-37.0); MCV 85.7 fL (80.0-100.0); Mean Platelet Volume 7.9; Monocytes # (A) 0.3 k/uL (0-1.0); Monocytes % (A) 4 %; Neutrophils # (A) 4.2 k/uL (1.3-7.7); Neutrophils % (A) 66 %; RBC 4.36 m/uL (3.80-5.40); RDW 14.9 % (11.5-15.5); WBC 6.3 k/uL (3.8-10.6); WBC (Perox) 6.14
[2017-05-03 10:43] LABS: ALT 79 U/L (9-52); AST 58 U/L (14-36); Alkaline Phosphatase 75 U/L (38-126); Amylase 118 U/L (30-110); Anion Gap 10 mmol/L; Blood Urea Nitrogen 21 mg/dL (7-17); Calcium 9.8 mg/dL (8.4-10.2); Carbon Dioxide 30 mmol/L (22-30); Chloride 101 mmol/L (98-107); Glucose 120 mg/dL (74-99); Non-African American GFR(MDRD) 52 (>60 ml/min/1.73 sqM); Potassium 4.2 mmol/L (3.5-5.1); Sodium 141 mmol/L (137-145); Total Bilirubin 0.7 mg/dL (0.2-1.3); Total Protein 7.2 g/dL (6.3-8.2)
[2017-05-03 11:35] LABS: Glucose,Whole Blood 116 mg/dL (75-99)
[2017-05-03] MEDS: PANTOPRAZOLE 40 MG/10 ML VIAL IVP SCH ×2 (12:39→22:06)
--- NOTE | 2017-05-03 14:18 | HP ---
HISTORY AND PHYSICAL DATE OF ADMISSION: 05/03/2017 PRESENTING COMPLAINT: Abdominal pain. HISTORY OF PRESENT COMPLAINT: A very pleasant, 72-year-old patient of Dr. Hernandez, chronic stable medical conditions include vasospastic angina, GERD, hypertension, osteoarthritis, restless legs syndrome, hiatal hernia, diverticulosis, peripheral neuropathy. Patient yesterday started having increasing central abdominal pain, continued to get worse, going through the back. Nausea was present. Did come to the ER. Did go home, then came back again. No fever. last bowel movement was 2 days ago. Patient had been diagnosed with acute pancreatitis. Patient had a prior cholecystectomy. No alcohol history. Lying in bed. Abdomen is still quite tender. REVIEW OF SYSTEMS: CONSTITUTIONAL: Tired. HEENT: None. RESPIRATORY: None. CARDIOVASCULAR: None. GASTROINTESTINAL: As above. GENITOURINARY: None. MUSCULOSKELETAL: Pain in different joints. DERMATOLOGICAL: None. HEMATOLOGIC: None. LYMPHATIC: None. PSYCHIATRY: None. NEUROLOGICAL: Restless legs syndrome. PAST HISTORY: Suspected angina, GERD, hypertension, osteoarthritis, restless legs syndrome, hiatal hernia, Meniere's disease, diverticulosis, peripheral neuropathy, DJD. 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 SOCIAL HISTORY: Lives alone. Does drive a car. Used to work as a store team member. No smoking. No alcohol. FAMILY HISTORY: Stroke, diabetes mellitus type 2, DVT, stomach cancer. HOME MEDICATIONS: 1. Lofibra 160 mg p.o. daily. 2. Vitamin D3 five thousand units p.o. daily. 3. [place] 10 one tablet q.8 p.r.n. 4. Neurontin 200 mg q.h.s. 5. Pamelor 10 mg q.h.s. 6. Niacin 500 mg p.o. daily. 7. Naproxen 250 mg p.o. b.i.d. 8. Triamterene hydrochlorothiazide 37.5/25 one tablet p.o. daily. 9. Zofran 4 mg p.o. q.8 p.r.n. 10.Omeprazole 40 mg p.o. daily. 11.Norvasc 2.5 p.o. daily. 12.Requip 1.5 mg p.o. q.h.s. ALLERGIES: PENICILLIN and MILK-CONTAINING PRODUCTS. PHYSICAL EXAMINATION: Temperature 98.2, pulse 99, respirations 20, blood pressure 135/69, pulse ox 98% on room air. GENERAL APPEARANCE: Average built, lying in bed, somewhat uncomfortable. EYES: Pupils equal, conjunctivae normal. HEENT: Oral cavity normal. NECK: JVD not raised. Mass not palpable. RESPIRATORY: Effort normal. Lungs are clear. CARDIOVASCULAR: First and second sounds heard, no edema. ABDOMEN: Slightly distended. Tenderness, no guarding or rigidity. Liver and spleen not palpable. Surgical scars are present, old. LYMPHATIC: No lymph palpable in neck or axillae. PSYCHIATRY: Alert and oriented x3. Mood and affect normal. NEUROLOGICAL: Pupils equal, cranial nerves grossly intact. Power and sensation grossly intact. INVESTIGATIONS: White count 10, hemoglobin 14.4, platelets 130 to 210, potassium 4.1, amylase 217, lipase 2383. ASSESSMENT: 1. Acute pancreatitis in a patient with prior history of cholecystectomy with normal bilirubin well could be idiopathic. 2. Vasospastic angina with negative cardiac cath. 3. Gastroesophageal reflux disease. 4. Essential hypertension. 5. Primary osteoarthritis of multiple joints, bilateral. 6. Restless legs syndrome. 7. Hiatal hernia. 8. Colonic diverticulosis, asymptomatic. 9. Peripheral neuropathy, idiopathic. PLAN: Home medications are resumed. Patient getting IV fluids, IV pain medication. GI was consulted. Care was discussed with the patient. Questions were answered. Lovenox for DVT prophylaxis. Patient will be n.p.o. except for oral medications. Care was discussed with the patient. MMODL / IJN: [id number] /
[2017-05-03 16:56] LABS: Glucose,Whole Blood 107 mg/dL (75-99)
[2017-05-03 21:22] LABS: Glucose,Whole Blood 92 mg/dL (75-99)
[2017-05-03] MEDS: GABAPENTIN 100 MG CAP PO SCH (22:06)
[2017-05-03] MEDS: NORTRIPTYLINE 10 MG CAP PO SCH (22:12)
[2017-05-04] MEDS: HYDROmorphone 1 MG/ML 1 ML SYRINGE IVP PRN ×2 (04:36→19:25)
[2017-05-04] MEDS: ONDANSETRON 4 MG/2 ML VIAL IVP PRN ×2 (04:37→18:06)
[2017-05-04] MEDS: SODIUM CHLORIDE 0.9% 1,000 ML IV SCH ×2 (06:23→15:35)
[2017-05-04 07:28] LABS: Glucose,Whole Blood 104 mg/dL (75-99)
[2017-05-04] MEDS: FENOFIBRATE 160 MG TAB PO SCH (08:41)
[2017-05-04] MEDS: NIACIN TR 500 MG CAPSULE.ER PO SCH (08:41)
[2017-05-04] MEDS: PANTOPRAZOLE 40 MG/10 ML VIAL IVP SCH ×2 (08:43→21:19)
[2017-05-04] MEDS: amLODIPine 2.5 MG TAB PO SCH (08:44)
[2017-05-04] MEDS ORDERED: LIDOCAINE 1% INJ 10MG/ML (20 ML MDV) ONE (10:51)
[2017-05-04] MEDS ORDERED: PROPOFOL 10 MG/ML 20 ML VIAL IV ONE (10:51)
[2017-05-04] MEDS ORDERED: IV FLUID CONTINUATION 550 ML IV ONE (10:54)
--- NOTE | 2017-05-04 11:35 | P.PCN ---
Date of Procedure: 05/04/17 Procedure(s) Performed: Procedure: Esophagogastroduodenoscopy. Preoperative diagnosis: Acute pancreatitis, rule out penetrating ulcer disease. Postoperative diagnosis: Hiatal hernia but no obvious complicated reflux disease or any ulcers or gastric outlet obstruction. Preparation and sedation: Was provided by anesthesia. Brief clinical history: The patient is a 72-year-old female with a history of laparoscopic paraesophageal hiatal hernia repair 2013, GERD, diverticulosis, gout, dyslipidemia, morbid obesity, diabetes mellitus type 2, open cholecystectomy/cholelithiasis, open colon resection, appendectomy, hypertension. She presented to the hospital with generalized abdominal pain radiating to her back with nonbloody emesis and intense "heartburn" over the last few weeks. No fever chills hematemesis hematochezia melena. CT of the abdomen and pelvis with IV contrast reported large hiatal hernia. Bile duct is not dilated. Postcholecystectomy. No evidence of pancreatic mass. No ascites. Few small bowel loops measuring up to 2.5 cm of fluid levels possible ileus. Admission lipase 99 but then increase to 2383. Amylase 217. Total bilirubin 0.6-0.9. AST 62-70. ALT 84-89. Alkaline phosphatase 91-101. The details are summarized in the history and physical and dictated consultation. This evaluation is to rule out penetrating ulcer or other pathology. Procedure: With the patient on her left lateral decubitus position and after informed consent and adequate sedation, I passed the Olympus-GIF 160 video upper endoscope through the cricopharyngeus down the esophagus. GE junction was around 32-34 cm from the incisors and there was a small hiatal hernia with no evidence of esophagitis or complicated reflux disease. The endoscope was then passed into the stomach which was insufflated with air and inspected in detail including the retroflex view in the cardia. Finally, the endoscope was passed through the pylorus into the duodenum. Pyloric channel, duodenal bulb, post bulbar area and descending duodenum appeared healthy with no ulcers or gastric outlet obstruction. The stomach did not show any abnormalities. The patient tolerated the procedure well. Plan: The patient was reassured and I discussed with her daughter over the phone. Since this is the first episode of pancreatitis will not proceed with any further workup at this time, especially in the absence of elevation in her liver enzymes, however, if her symptoms should recur, will consider further evaluation of the biliary tree to rule out common bile duct stone(s) because of the history of cholelithiasis and prior cholecystectomy she had for that. Will discuss with you and follow with interest.
[2017-05-04 12:35] LABS: Glucose,Whole Blood 96 mg/dL (75-99)
[2017-05-04 17:14] LABS: Glucose,Whole Blood 79 mg/dL (75-99)
[2017-05-04 20:37] LABS: Glucose,Whole Blood 118 mg/dL (75-99)
[2017-05-04] MEDS: NORTRIPTYLINE 10 MG CAP PO SCH (20:54)
[2017-05-04] MEDS: GABAPENTIN 100 MG CAP PO SCH (20:55)
[2017-05-05] MEDS: SODIUM CHLORIDE 0.9% 1,000 ML IV SCH ×2 (06:19→18:12)
[2017-05-05 07:29] LABS: Glucose,Whole Blood 103 mg/dL (75-99)
[2017-05-05] MEDS: ONDANSETRON 4 MG/2 ML VIAL IVP PRN (07:59)
[2017-05-05] MEDS: amLODIPine 2.5 MG TAB PO SCH (08:07)
[2017-05-05] MEDS: NIACIN TR 500 MG CAPSULE.ER PO SCH (08:07)
[2017-05-05] MEDS: FENOFIBRATE 160 MG TAB PO SCH (08:07)
[2017-05-05] MEDS: PANTOPRAZOLE 40 MG/10 ML VIAL IVP SCH (08:08)
[2017-05-05 10:02] LABS: Basophils % (A) 0 %; CH 29.7; CHCM 35.3; Eosinophils # (A) 0.1 k/uL (0-0.7); Eosinophils % (A) 3 %; HCT 35.8 % (34.0-46.0); HDW 3.19; HGB 12.1 gm/dL (11.4-16.0); Luc # (Auto) 0.07; Luc % (Auto) 2; Lymphocytes # (A) 1.6 k/uL (1.0-4.8); Lymphocytes % (A) 39 %; MCH 28.4 pg (25.0-35.0); MCHC 33.7 g/dL (31.0-37.0); MCV 84.4 fL (80.0-100.0); Mean Platelet Volume 7.9; Monocytes # (A) 0.2 k/uL (0-1.0); Monocytes % (A) 5 %; Neutrophils # (A) 2.1 k/uL (1.3-7.7); Neutrophils % (A) 52 %; RBC 4.24 m/uL (3.80-5.40); RDW 14.8 % (11.5-15.5); WBC (Perox) 4.19
[2017-05-05 10:13] LABS: ALT 63 U/L (9-52); AST 44 U/L (14-36); Alkaline Phosphatase 68 U/L (38-126); Anion Gap 11 mmol/L; Blood Urea Nitrogen 15 mg/dL (7-17); Calcium 9.7 mg/dL (8.4-10.2); Carbon Dioxide 24 mmol/L (22-30); Chloride 108 mmol/L (98-107); Glucose 100 mg/dL (74-99); Non-African American GFR(MDRD) >60 (>60 ml/min/1.73 sqM); Potassium 3.9 mmol/L (3.5-5.1); Sodium 143 mmol/L (137-145); Total Bilirubin 0.7 mg/dL (0.2-1.3); Total Protein 6.9 g/dL (6.3-8.2)
--- NOTE | 2017-05-05 11:42 | P.PN ---
Subjective Principal diagnosis: Pancreatitis Status post EGD yesterday no evidence of peptic ulcer disease. Patient presented with acute first-time episode of pancreatitis with normal liver function tests etiology unclear. History of open cholecystectomy for stones many years ago. Post EGD unable to tolerate diet with 2 emesis nonbloody. Lipase 110. Total bilirubin 0.7. AST/ALT 40-60. Afebrile. White count 4. Hemoglobin 12.1. Abdominal x-rays pending. Objective - Vital Signs Vital signs: Vital Signs Temp 97.5 F L 05/05/17 07:00 Pulse 91 05/05/17 07:00 Resp 18 05/05/17 07:00 BP 122/61 05/05/17 07:00 Pulse Ox 92 L 05/05/17 07:00 Intake & Output 05/04/17 05/05/17 05/05/17 18:59 06:59 18:59 Intake Total 825 950 Balance 825 950 Intake: IV 825 Sodium Chloride 0.9% 1, 800 000 ml @ 100 mls/hr IV . Q10H [facility] Rx#:[id number] Oral 950 Other: # Voids 1 2 # Bowel Movements 0 # Emeses 1 - Exam General appearance: The patient is alert, oriented, in no acute distress. HET: Head is normocephalic and atraumatic. Pupils are equal and reactive. Oropharynx is clear without lesions. Neck: Supple without lymphadenopathy. Trachea midline. Heart: S1 S2. Regular rate and rhythm. Lungs: No crackles or wheezes are heard. Abdomen: Soft, mild midepigastric tenderness, nondistended with bowel sounds. No peritoneal signs. No palpable organomegaly or masses. Extremities: Normal skin color and turgor. No cyanosis, rash, ulceration, clubbing, or edema. Radial and pedal pulses are 2/4 bilaterally. Neurological: No focal deficits. Strength and sensation are grossly intact. - Labs CBC & Chem 7: 05/05/17 09:39 05/05/17 09:39 Labs: Abnormal Lab Results - Last 24 Hours (Table) 05/04/17 05/05/17 05/05/17 Range/Units 20:30 07:25 09:39 Chloride 108 H (98-107) mmol/L Glucose 100 H (74-99) mg/dL POC Glucose (mg/dL) 118 H 103 H (75-99) mg/dL AST 44 H (14-36) U/L ALT 63 H (9-52) U/L Assessment and Plan (1) Pancreatitis Narrative/Plan: Acute pancreatitis etiology unclear status post EGD evaluation with no evidence of peptic ulcer disease. Status: Acute (2) Ileus Narrative/Plan: Suspect ileus exacerbated by acute pancreatitis with underlying history of abdominal adhesions Status: Acute Plan: 1. Suspect nausea vomiting could be related to underlying ileus. She has an underlying history of abdominal adhesions. Ileus could be exacerbated by underlying adhesions and her presentation of acute pancreatitis. Await results with abdominal films. Morning chemistries reviewed improved and stable. Continue supportive measures. Liquid diet as tolerated. Recommend general surgical consultation patient requests Dr. Blanco if abdominal films are abnormal. Assessment and plan of care discussed with Dr. Huynh
[2017-05-05 12:09] LABS: Glucose,Whole Blood 90 mg/dL (75-99)
--- NOTE | 2017-05-05 13:33 | XR ---
EXAMINATION TYPE: XR abdomen 2V DATE OF EXAM: 05/05/2017 COMPARISON: 04/09/2014 INDICATION: Nausea vomiting TECHNIQUE: Abdomen is examined in the supine and upright view FINDINGS: Colonic bowel gas is present. Nonspecific small bowel gas is present. Multiple sutures within the abd omen. Psoas margins are normal. No suspicious air-fluid levels or differential air-fluid levels are present. No free air is evident. IMPRESSION: 1. Nonspecific abdomen.
--- NOTE | 2017-05-05 16:26 | P.PN ---
Subjective Date of service 05/04/2017. Progress Note being dictated for Dr. Fragoso. Interval history: This is a 72-year-old female admitted with acute pancreatitis , midepigastric abdominal pain in a patient with prior history of cholecystectomy with normal bilirubin, gastroesophageal reflux disease, multiple abdominal surgeries and multiple other medical issues. Patient states she has had heartburn for the last month. Abdominal x-ray reported nonspecific abdomen, no free air, no suspicious air-fluid levels. Abdomen/pelvis CT of 05/02 reported large hiatal hernia, dilated bile duct, no pancreatic mass, no ascites, possible ileus, sigmoid diverticulosis.maintained on IV fluid hydration. lipase, LFTs improving. Evaluated by GI, underwent EGD, reporting hiatal hernia, no complicated reflux disease, no ulcers or gastric outlet obstruction. Tolerated procedure well. Diet advanced. Maintained on PPI. Denies chest pain, palpitations or increasing shortness of breath. Afebrile. Objective - Vital Signs Vital signs: Vital Signs Temp 98.1 F 05/05/17 14:43 Pulse 91 05/05/17 14:43 Resp 18 05/05/17 14:43 BP 132/69 05/05/17 14:43 Pulse Ox 97 05/05/17 14:43 Intake & Output 05/04/17 05/05/17 05/05/17 18:59 06:59 18:59 Intake Total 825 950 Balance 825 950 Intake: IV 825 Sodium Chloride 0.9% 1, 800 000 ml @ 100 mls/hr IV . Q10H [facility] Rx#:[id number] Oral 950 Other: # Voids 1 2 4 # Bowel Movements 0 1 # Emeses 1 - Exam PHYSICAL EXAM: VITAL SIGNS: [Temperature 97.7 oral, pulse 85, respiratory rate 18, blood pressure 122/61, O2 sat 96% on room air] GENERAL: Sitting up in bed, no acute distress HEENT: Conjunctivae normal. eyes normal. NECK: No JVD. No thyroid enlargement. No LNs CARDIOVASCULAR: S1, S2 muffled. No murmur RESPIRATION: Breath sounds diminished in the bases. No rhonchi or crackles. No bronchial breathing. ABDOMEN: Soft, mildly distended, mid epigastric tenderness . No guarding. no masses palpable. No ascites, No hepatosplenomegaly.Bowel sounds heard. LEGS: No edema. no swelling PSYCHIATRY: Alert and oriented -3, mood and affect normal. NERVOUS SYSTEM: Cranial N 2-12 grossly normal. Moves all 4 limbs. No focal deficits. No sensory deficit. Skin: no ulcer no rash - Labs CBC & Chem 7: 05/05/17 09:39 05/05/17 09:39 Labs: Abnormal Lab Results - Last 24 Hours (Table) 05/04/17 05/05/17 05/05/17 Range/Units 20:30 07:25 09:39 Chloride 108 H (98-107) mmol/L Glucose 100 H (74-99) mg/dL POC Glucose (mg/dL) 118 H 103 H (75-99) mg/dL AST 44 H (14-36) U/L ALT 63 H (9-52) U/L Assessment and Plan Plan: #1acute pancreatitis in a patient with history of cholecystectomy with normal bilirubin, etiology unclear; status post EGD peptic ulcer disease ruled out. #2 gastroesophageal reflux disease #3 history of vasospastic angina with negative cardiac cath #4 colonic diverticulosis, asymptomatic #5 essential hypertension Plan: Continue on current medication regime ,monitoring and symptomatic treatment. Status post EGD, advance diet to soft and if patient tolerates, consider discharge home if cleared by GI. Maintain PPI. Further recommendations to follow. The impression and plan of care has been dictated as directed. : I performed a H&P examination of this patient and discussed the same with the dictator. I agree with the dictator's note. Any additional findings/opinions/ etc. will be noted.
[2017-05-05 16:35] LABS: Glucose,Whole Blood 91 mg/dL (75-99)
--- NOTE | 2017-05-05 16:52 | P.PN ---
Subjective Progress Note being dictated for Dr. Fragoso. 05/04/2017 Interval history: This is a 72-year-old female admitted with acute pancreatitis, midepigastric abdominal pain in a patient with prior history of cholecystectomy with normal bilirubin, gastroesophageal reflux disease, multiple abdominal surgeries and multiple other medical issues. Patient states she has had heartburn for the last month. Abdominal x-ray reported nonspecific abdomen, no free air, no suspicious air-fluid levels. Abdomen/pelvis CT of 05/02 reported large hiatal hernia, dilated bile duct, no pancreatic mass, no ascites, possible ileus, sigmoid diverticulosis.maintained on IV fluid hydration. lipase, LFTs improving. Evaluated by GI, underwent EGD, reporting hiatal hernia, no complicated reflux disease, no ulcers or gastric outlet obstruction. Tolerated procedure well. Diet advanced. Maintained on PPI. Denies chest pain, palpitations or increasing shortness of breath. Afebrile. 05/05/2017 patient developed nausea followed by small emesis after dinner last night. This morning continues to have significant nausea with emesis following breakfast. Abdominal x-ray performed, reporting nonspecific abdomen, colonic bowel gas present, nonspecific small bowel gas present, no suspicious air-fluid levels or differential air-fluid levels present no free air. Lipase normalized , afebrile. Liquid dark stool yesterday, last normal BM reported as Monday. States in the ER she was throwing up stool, bile appearing. Objective - Vital Signs Vital signs: Vital Signs Temp 98.1 F 05/05/17 14:43 Pulse 91 05/05/17 14:43 Resp 18 05/05/17 14:43 BP 132/69 05/05/17 14:43 Pulse Ox 97 05/05/17 14:43 Intake & Output 05/04/17 05/05/17 05/05/17 18:59 06:59 18:59 Intake Total 825 950 Balance 825 950 Intake: IV 825 Sodium Chloride 0.9% 1, 800 000 ml @ 100 mls/hr IV . Q10H VENKAT Rx#:[id number] Oral 950 Other: # Voids 1 2 4 # Bowel Movements 0 1 # Emeses 1 - Exam PHYSICAL EXAM: VITAL SIGNS: [Temperature 97.7 oral, pulse 85, respiratory rate 18, blood pressure 122/61, O2 sat 96% on room air] GENERAL: Sitting up in bed, no acute distress HEENT: Conjunctivae normal. eyes normal. NECK: No JVD. No thyroid enlargement. No LNs CARDIOVASCULAR: S1, S2 muffled. No murmur RESPIRATION: Breath sounds diminished in the bases. No rhonchi or crackles. No wheezing. ABDOMEN: Soft, mildly distended, mid epigastric tenderness . No guarding. no masses palpable. No ascites, No hepatosplenomegaly.Bowel sounds heard. LEGS: No edema. no swelling. PSYCHIATRY: Alert and oriented -3, mood and affect normal. NERVOUS SYSTEM: Cranial N 2-12 grossly normal. Moves all 4 limbs. No focal deficits. No sensory deficit. Skin: no ulcer no rash - Labs CBC & Chem 7: 05/05/17 09:39 05/05/17 09:39 Labs: Abnormal Lab Results - Last 24 Hours (Table) 05/04/17 05/05/17 05/05/17 Range/Units 20:30 07:25 09:39 Chloride 108 H (98-107) mmol/L Glucose 100 H (74-99) mg/dL POC Glucose (mg/dL) 118 H 103 H (75-99) mg/dL AST 44 H (14-36) U/L ALT 63 H (9-52) U/L Assessment and Plan Plan: #1acute pancreatitis in a patient with history of cholecystectomy with normal bilirubin, etiology unclear; status post EGD peptic ulcer disease ruled out, positive hiatal hernia. #2 possible Ileus #3 gastroesophageal reflux disease #4 history of vasospastic angina with negative cardiac cath #5 colonic diverticulosis, asymptomatic #6 essential hypertension. Plan: Continue on current medication regime , PPI, monitoring and symptomatic treatment. Continue IV fluid hydration. Patient currently tolerating clear liquid diet, if nausea and vomiting persists, surgery will be consulted. Further recommendations to follow. The impression and plan of care has been dictated as directed. : I performed a H&P examination of this patient and discussed the same with the dictator. I agree with the dictator's note. Any additional findings/opinions/ etc. will be noted.
[2017-05-05] MEDS: PANTOPRAZOLE 40 MG TABLET PO SCH (18:08)
[2017-05-05] MEDS: NORTRIPTYLINE 10 MG CAP PO SCH (20:09)
[2017-05-05] MEDS: GABAPENTIN 100 MG CAP PO SCH (20:09)
[2017-05-05 20:41] LABS: Glucose,Whole Blood 114 mg/dL (75-99)
[2017-05-05] MEDS: HYDROcodone/APAP 10-325MG 1 EACH TAB PO PRN (22:57)
[2017-05-05 23:37] VITALS: RESP 16
[2017-05-06] MEDS: HYDROmorphone 1 MG/ML 1 ML SYRINGE IVP PRN (00:51)
[2017-05-06] MEDS: SODIUM CHLORIDE 0.9% 1,000 ML IV SCH ×2 (02:16→08:36)
[2017-05-06] MEDS: HYDROcodone/APAP 10-325MG 1 EACH TAB PO PRN (07:39)
[2017-05-06 07:57] LABS: Glucose,Whole Blood 106 mg/dL (75-99)
[2017-05-06 08:00] VITALS: BP 148/80; PULSE 87; TEMP 97.4
[2017-05-06] MEDS: PANTOPRAZOLE 40 MG TABLET PO SCH (08:36)
[2017-05-06] MEDS: amLODIPine 2.5 MG TAB PO SCH (08:37)
[2017-05-06] MEDS: FENOFIBRATE 160 MG TAB PO SCH (08:37)
[2017-05-06] MEDS: NIACIN TR 500 MG CAPSULE.ER PO SCH (08:37)
[2017-05-06 12:04] LABS: Glucose,Whole Blood 81 mg/dL (75-99)
--- NOTE | 2017-05-06 13:25 | P.DS ---
Providers Date of admission: 05/03/17 00:14 Attending physician: Jim Molina Consults: 05/02/17 23:49 Consult Physician Stat Consulting Provider: Manuela Dewey Consult Reason/Comments: Acute Pancreatitis Do you want consulting provider notified?: Yes Primary care physician: Damir [facility] Course: 05/04/2017 Interval history: This is a 72-year-old female admitted with acute pancreatitis, midepigastric abdominal pain in a patient with prior history of cholecystectomy with normal bilirubin, gastroesophageal reflux disease, multiple abdominal surgeries and multiple other medical issues. Patient states she has had heartburn for the last month. Abdominal x-ray reported nonspecific abdomen, no free air, no suspicious air-fluid levels. Abdomen/pelvis CT of 05/02 reported large hiatal hernia, dilated bile duct, no pancreatic mass, no ascites, possible ileus, sigmoid diverticulosis.maintained on IV fluid hydration. lipase, LFTs improving. Evaluated by GI, underwent EGD, reporting hiatal hernia, no complicated reflux disease, no ulcers or gastric outlet obstruction. Tolerated procedure well. Diet advanced. Maintained on PPI. Denies chest pain, palpitations or increasing shortness of breath. Afebrile. 05/05/2017 patient developed nausea followed by small emesis after dinner last night. This morning continues to have significant nausea with emesis following breakfast. Abdominal x-ray performed, reporting nonspecific abdomen, colonic bowel gas present, nonspecific small bowel gas present, no suspicious air-fluid levels or differential air-fluid levels present no free air. Lipase normalized , afebrile. Liquid dark stool yesterday, last normal BM reported as Monday. States in the ER she was throwing up stool, bile appearing. 05/06/2017 Patient doesn't have any nausea today clinically doing well will be discharged today. PHYSICAL EXAMINATION: GENERAL: The patient is alert and oriented x3, not in any acute distress. Well developed, well nourished. HEENT: Pupils are round and equally reacting to light. EOMI. No scleral icterus. No conjunctival pallor. Normocephalic, atraumatic. No pharyngeal erythema. No thyromegaly. CARDIOVASCULAR: S1 and S2 present. No murmurs, rubs, or gallops. PULMONARY: Chest is clear to auscultation, no wheezing or crackles. ABDOMEN: Soft, nontender, nondistended, normoactive bowel sounds. No palpable organomegaly. MUSCULOSKELETAL: No joint swelling or deformity. EXTREMITIES: No cyanosis, clubbing, or pedal edema. NEUROLOGICAL: Gross neurological examination did not reveal any focal deficits. SKIN: No rashes. #1acute pancreatitis in a patient with history of cholecystectomy with normal bilirubin, etiology unclear; status post EGD peptic ulcer disease ruled out, positive hiatal hernia. #3 gastroesophageal reflux disease #4 history of vasospastic angina with negative cardiac cath #5 colonic diverticulosis, asymptomatic #6 essential hypertension. Patient Condition at Discharge: Fair Plan - Discharge Summary New Discharge Prescriptions: Continue Omeprazole 40 mg PO DAILY Gabapentin [Neurontin] 200 mg PO HS Fenofibrate [Lofibra] 160 mg PO DAILY HYDROcodone/APAP 10-325MG [[place] 10-325] 1 tab PO Q8H PRN PRN Reason: Pain Nortriptyline [Pamelor] 10 mg PO HS Cholecalciferol [Vitamin D3] 5,000 unit PO DAILY rOPINIRole HCL [Requip] 1.5 mg PO HS amLODIPine [Norvasc] 2.5 mg PO DAILY #30 tab Niacin 500 mg PO DAILY Ondansetron [Zofran] 4 mg PO Q8HR PRN #30 tab PRN Reason: Nausea Discharge Medication List Fenofibrate [Lofibra] 160 mg PO DAILY 01/23/14 [History] Gabapentin [Neurontin] 200 mg PO HS 01/23/14 [History] Omeprazole 40 mg PO DAILY 01/23/14 [History] HYDROcodone/APAP 10-325MG [[place] 10-325] 1 tab PO Q8H PRN 09/03/14 [History] Nortriptyline [Pamelor] 10 mg PO HS 10/22/14 [History] Cholecalciferol [Vitamin D3] 5,000 unit PO DAILY 05/07/15 [History] rOPINIRole HCL [Requip] 1.5 mg PO HS 05/07/15 [History] amLODIPine [Norvasc] 2.5 mg PO DAILY #30 tab 05/08/15 [Rx] Niacin 500 mg PO DAILY 06/26/16 [History] Ondansetron [Zofran] 4 mg PO Q8HR PRN #30 tab 05/02/17 [Rx] Follow up Appointment(s)/Referral(s): Yovany Huynh MD [STAFF PHYSICIAN] - As Needed Damir Hernandez DO [Primary Care Provider] - 3 Days Ambulatory/Diagnostic Orders: Comprehensive Metabolic Panel [LAB.AMB] Time Frame: 3 Days, Location: Determined By Patient Activity/Diet/Wound Care/Special Instructions: Dyazide on hold, related to elevated creatinine, reevaluate outpatient with PCP Diet: Cardiac Activity: Limited until follow up
== END 2017-05-06 14:33 | disposition home or self-care (01) | DRG 439 ==
LOC: EC 20:55 → 4MS4W 05-03 00:14
PROVIDERS: ADMIT Hospitalist; ATTEND Hospitalist
PROC: 0DJ08ZZ Inspection of Upper Intestinal Tract, Via Natural or Artificial Opening Endoscopic (ICD-10-PCS; principal; 2017-05-04 15:15)
DX: K85.90 Acute pancreatitis without necrosis or infection, unspecified (principal); K56.7 Ileus, unspecified; E11.9 Type 2 diabetes mellitus without complications; E66.01 Morbid (severe) obesity due to excess calories; I10 Essential (primary) hypertension; K21.9 Gastro-esophageal reflux disease without esophagitis; G25.81 Restless legs syndrome; K44.9 Diaphragmatic hernia without obstruction or gangrene; K57.30 Diverticulosis of large intestine without perforation or abscess without bleeding; M10.9 Gout, unspecified; E78.5 Hyperlipidemia, unspecified; H40.9 Unspecified glaucoma; M16.0 Bilateral primary osteoarthritis of hip; M17.0 Bilateral primary osteoarthritis of knee; F10.21 Alcohol dependence, in remission; G60.9 Hereditary and idiopathic neuropathy, unspecified; Z79.899 Other long term (current) drug therapy; Z90.49 Acquired absence of other specified parts of digestive tract; Z90.710 Acquired absence of both cervix and uterus; Z96.653 Presence of artificial knee joint, bilateral; Z98.42 Cataract extraction status, left eye; Z98.41 Cataract extraction status, right eye; Z96.1 Presence of intraocular lens; Z87.891 Personal history of nicotine dependence; Z88.0 Allergy status to penicillin; Z91.011 Allergy to milk products
CPT/HCPCS: 36415; 43235; 74020; 80053; 82150; 82550; 82553; 83690; 84478; 84484; 85025; 93005; 96361; 96374; 96375; 96376; 99285

== ENCOUNTER 2018-01-18 10:52 | Emergency (ER) | payer MEDICARE ==
[2018-01-18 11:05] VITALS: TEMP 98.5
[2018-01-18] MEDS ORDERED: SODIUM CHLORIDE 0.9% 500 ML IV STA (11:07)
[2018-01-18] MEDS ORDERED: ONDANSETRON 4 MG/2 ML VIAL IVP STA (11:07)
[2018-01-18] MEDS ORDERED: SODIUM CHLORIDE 0.9% 1,000 ML IV STA (11:07)
--- NOTE | 2018-01-18 11:36 | ED ---
Nausea/Vomiting/Diarrhea HPI - General Chief complaint: Nausea/Vomiting/Diarrhea Stated complaint: DIARRHEA, WEAKNESS, NEAR SYNCOPE Time Seen by Provider: 01/18/18 11:07 Source: patient, RN notes reviewed Mode of arrival: wheelchair Limitations: no limitations - History of Present Illness Initial comments: 72-year-old female presents emergency Department chief complaint of nausea, vomiting, diarrhea. Patient states started yesterday into today. Patient states that she was painting earlier yesterday states that she was pain and off stairway and states that she became very hot, flushed feeling, felt like she has been a pass out but never did. She denies any chest pain or shortness of breath. She states she has some left lower quadrant abdominal pain. Patient states she has multiple episodes of diarrhea and vomiting. She states that she feels weak and rundown. Patient states she is concerned that she may be dehydrated. Patient states that she had pancreatitis last year. - Related Data Home Medications Medication Instructions Recorded Confirmed Fenofibrate [Lofibra] 160 mg PO DAILY 01/23/14 01/18/18 Gabapentin [Neurontin] 200 mg PO HS 01/23/14 01/18/18 Omeprazole 40 mg PO DAILY 01/23/14 01/18/18 HYDROcodone/APAP 10-325MG [[place] 1 tab PO Q8H PRN 09/03/14 01/18/18 10-325] Cholecalciferol [Vitamin D3] 5,000 unit PO DAILY 05/07/15 01/18/18 Niacin 1,500 mg PO DAILY 06/26/16 01/18/18 Ezetimibe [Zetia] 10 mg PO DAILY 01/18/18 01/18/18 Furosemide [Lasix] 40 mg PO DAILY 01/18/18 01/18/18 Gabapentin [Neurontin] 100 mg PO DAILY 01/18/18 01/18/18 Losartan [Cozaar] 25 mg PO DAILY 01/18/18 01/18/18 Nortriptyline HCl [Pamelor] 25 mg PO HS 01/18/18 01/18/18 Triamterene/Hydrochlorothiazid 1 cap PO DAILY 01/18/18 01/18/18 [Dyazide 37.5-25 Capsule] Vits A,C,E/Lutein/Minerals 1 tab PO BID 01/18/18 01/18/18 [Ocuvite with Lutein Tablet] metFORMIN HCL [Glucophage] 500 mg PO BID 01/18/18 01/18/18 rOPINIRole HCL [Requip] 4 mg PO HS 01/18/18 01/18/18 Previous Rx's Medication Instructions Recorded Ondansetron Odt [Zofran Odt] 4 mg PO Q8HR PRN #10 tab 01/18/18 Allergies Allergy/AdvReac Type Severity Reaction Status Date / Time Penicillins Allergy Rash/Hives Verified 01/18/18 12:00 Milk Containing Products AdvReac Nausea Verified 01/18/18 12:00 [Dairy] Review of Systems ROS Statement: Those systems with pertinent positive or pertinent negative responses have been documented in the HPI. ROS Other: All systems not noted in ROS Statement are negative. Past Medical History Past Medical History: Chest Pain / Angina, GERD/Reflux, Hypertension Additional Past Medical History / Comment(s): Other HX: intestinal adhesions, RESTLESS LEG, HERNIA, MENIERES, DIVERTICULITIS, HX GLAUCOMA R eye, NEUROPATHY. 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 History of Any Multi-Drug Resistant Organisms: None Reported Past Surgical History: Appendectomy, Bladder Surgery, Bowel Resection, Cholecystectomy, Ear Surgery, Heart Catheterization, Hernia Repair, Hysterectomy , Joint Replacement, Orthopedic Surgery, Tonsillectomy, Tubal Ligation Additional Past Surgical History / Comment(s): 11/03/14 diagnostic laparoscopy with lysis of adhesions. LUBNA KNEE REPLACEMENT, EYE surgery for cataracts bilaterally with lens implants, TUBE IN RIGHT EAR FOR MENIERES, SX ON LEFT THUMB , hiatal. hernia repair, abdominal ventral hernia repair, cardiac cath in her 30's which was negative. Past Anesthesia/Blood Transfusion Reactions: Motion Sickness, Postoperative Nausea & Vomiting (PONV) Additional Past Anesthesia/Blood Transfusion Reaction / Comment(s): MENIERE'S, STATES "JAW LOCKED UP AFTER PREVIOUS INTUBATION" Past Psychological History: Depression Smoking Status: Former smoker Past Alcohol Use History: None Reported Past Drug Use History: None Reported - Past Family History Brother(s) Family Medical History: Cancer Mother Family Medical History: Cancer, CVA/TIA, Diabetes Mellitus, Deep Vein Thrombosis (DVT) Additional Family Medical History / Comment(s): STOMACH CANCER Father Family Medical History: No Reported History Additional Family Medical History / Comment(s): COMMITTED SUICIDE General Exam Limitations: no limitations General appearance: alert, in no apparent distress Head exam: Present: atraumatic, normocephalic, normal inspection Neck exam: Present: normal inspection, full ROM. Absent: tenderness, meningismus, lymphadenopathy Respiratory exam: Present: normal lung sounds bilaterally. Absent: respiratory distress, wheezes, rales, rhonchi, stridor Cardiovascular Exam: Present: regular rate, normal rhythm, normal heart sounds. Absent: systolic murmur, diastolic murmur, rubs, gallop, clicks GI/Abdominal exam: Present: soft, tenderness (Mild left lower quadrant tenderness), normal bowel sounds. Absent: distended, guarding, rebound, rigid Back exam: Absent: CVA tenderness (R), CVA tenderness (L) Skin exam: Present: warm, dry, intact, normal color. Absent: rash Course Vital Signs 01/18/18 11:01 Temperature 98.5 F Pulse Rate 87 Respiratory 18 Rate Blood Pressure 154/100 O2 Sat by Pulse 97 Oximetry Medical Decision Making - Medical Decision Making 72-year-old female presented emergency from for nausea vomiting diarrhea. Symptoms started yesterday progressed into today. Patient was given antiemetics , fluids states that she feels 100% better. She has no abdominal tenderness at this time. Patient did have an episode where she felt dizzy touches in the past. All yesterday because she was hot and painting though there is positive left sole. There is no current chest pain, no chest pain yesterday. Patient states that she'll follow-up with PCP tomorrow return for any worsening symptoms. - Lab Data Result diagrams: 01/18/18 12:18 01/18/18 12:18 Lab Results 01/18/18 01/18/18 01/18/18 Range/Units 12:18 12:18 12:18 WBC 6.0 (3.8-10.6) k/uL RBC 4.55 (3.80-5.40) m/uL Hgb 13.1 (11.4-16.0) gm/dL Hct 38.0 (34.0-46.0) % MCV 83.4 (80.0-100.0) fL MCH 28.8 (25.0-35.0) pg MCHC 34.5 (31.0-37.0) g/dL RDW 14.2 (11.5-15.5) % Plt Count 227 (150-450) k/uL Neutrophils % 53 % Lymphocytes % 37 % Monocytes % 4 % Eosinophils % 3 % Basophils % 1 % Neutrophils # 3.2 (1.3-7.7) k/uL Lymphocytes # 2.2 (1.0-4.8) k/uL Monocytes # 0.3 (0-1.0) k/uL Eosinophils # 0.2 (0-0.7) k/uL Basophils # 0.1 (0-0.2) k/uL Sodium 143 (137-145) mmol/L Potassium 4.1 (3.5-5.1) mmol/L Chloride 105 (98-107) mmol/L Carbon Dioxide 23 (22-30) mmol/L Anion Gap 15 mmol/L BUN 32 H (7-17) mg/dL Creatinine 0.91 (0.52-1.04) mg/dL Est GFR (CKD-EPI)AfAm 74 (>60 ml/min/1.73 sqM) Est GFR (CKD-EPI)NonAf 64 (>60 ml/min/1.73 sqM) Glucose 109 H (74-99) mg/dL Calcium 10.1 (8.4-10.2) mg/dL Total Bilirubin 0.5 (0.2-1.3) mg/dL AST 54 H (14-36) U/L ALT 66 H (9-52) U/L Alkaline Phosphatase 78 (38-126) U/L Total Protein 7.2 (6.3-8.2) g/dL Albumin 4.5 (3.5-5.0) g/dL Amylase 61 (30-110) U/L Lipase 133 (23-300) U/L Urine Color Yellow Urine Appearance Clear (Clear) Urine pH 6.0 (5.0-8.0) Ur Specific [place] 1.021 (1.001-1.035) Urine Protein Trace H (Negative) Urine Glucose (UA) Negative (Negative) Urine Ketones Negative (Negative) Urine Blood Negative (Negative) Urine Nitrite Negative (Negative) Urine Bilirubin Negative (Negative) Urine Urobilinogen <2.0 (<2.0) mg/dL Ur Leukocyte Esterase Negative (Negative) - EKG Data EKG Comments: EKG performed at 11:22 normal sinus rhythm with a rate of 100, IA 154 QRS 78, QT /QTc is 346/446 Disposition Clinical Impression: Gastroenteritis Disposition: HOME SELF-CARE Condition: Stable Instructions: Acute Nausea and Vomiting (ED), Acute Diarrhea (ED) Additional Instructions: Please return to the Emergency Department if symptoms worsen or any other concerns. Prescriptions: Ondansetron Odt [Zofran Odt] 4 mg PO Q8HR PRN #10 tab PRN Reason: Nausea Is patient prescribed a controlled substance at d/c from ED?: No Referrals: Damir Hernandez DO [Primary Care Provider] - 1-2 days
[2018-01-18 12:34] LABS: Appearance,Urine Clear (Clear); Bilirubin,Urine Negative (Negative); Blood,Urine Negative (Negative); Color,Urine Yellow; Glucose,Urine (UA) Negative (Negative); Ketones,Urine Negative (Negative); Leukocyte Esterase,Urine Negative (Negative); Nitrite,Urine Negative (Negative); Protein,Urine Trace (Negative); Specific Gravity,Urine 1.021 (1.001-1.035); Urobilinogen,Urine <2.0 mg/dL (<2.0)
[2018-01-18 12:35] LABS: Basophils # (A) 0.1 k/uL (0-0.2); Basophils % (A) 1 %; Eosinophils # (A) 0.2 k/uL (0-0.7); Eosinophils % (A) 3 %; HGB 13.1 gm/dL (11.4-16.0); Lymphocytes # (A) 2.2 k/uL (1.0-4.8); Lymphocytes % (A) 37 %; MCH 28.8 pg (25.0-35.0); MCHC 34.5 g/dL (31.0-37.0); MCV 83.4 fL (80.0-100.0); Mean Platelet Volume 7.3; Monocytes # (A) 0.3 k/uL (0-1.0); Monocytes % (A) 4 %; Neutrophils # (A) 3.2 k/uL (1.3-7.7); Neutrophils % (A) 53 %; Platelet Count 227 k/uL (150-450); RBC 4.55 m/uL (3.80-5.40); RDW 14.2 % (11.5-15.5)
[2018-01-18 12:52] LABS: Albumin 4.5 g/dL (3.5-5.0); Calcium 10.1 mg/dL (8.4-10.2); Potassium 4.1 mmol/L (3.5-5.1); Total Bilirubin 0.5 mg/dL (0.2-1.3); Total Protein 7.2 g/dL (6.3-8.2)
--- NOTE | 2018-01-18 13:09 | XR ---
EXAMINATION TYPE: XR KUB DATE OF EXAM: 01/18/2018 12:39 PM CLINICAL HISTORY: Nausea, vomiting and generalized weakness TECHNIQUE: Single supine KUB image of the abdomen is obtained. COMPARISON: 04/09/2014 FINDINGS: No dilated bowel loops are seen. No differential air-fluid levels. No evidence of pneumoper itoneum. Surgical change of prior hernia repair as well as left para midline pelvic surgical clips an d left upper quadrant surgical clips are seen. Moderate degenerative changes of the spine and femoral acetabular joints are present. IMPRESSION: Nonobstructive bowel gas pattern.
[2018-01-18 13:25] VITALS: BP 114/63; PULSE 100; RESP 20
== END 2018-01-18 13:25 | disposition home or self-care (01) ==
LOC: EC 10:52
DX: K52.9 Noninfective gastroenteritis and colitis, unspecified (principal); I10 Essential (primary) hypertension; K21.9 Gastro-esophageal reflux disease without esophagitis; G25.81 Restless legs syndrome; G62.9 Polyneuropathy, unspecified; F32.9 Major depressive disorder, single episode, unspecified; Z87.891 Personal history of nicotine dependence; Z79.84 Long term (current) use of oral hypoglycemic drugs; Z79.899 Other long term (current) drug therapy; Z88.0 Allergy status to penicillin; Z91.011 Allergy to milk products; Z90.49 Acquired absence of other specified parts of digestive tract
CPT/HCPCS: 36415; 74018; 80053; 81003; 82150; 83690; 84484; 85025; 93005; 96361; 96374; 99285

== ENCOUNTER → 2018-04-05 | Outpatient (CLI) | payer MEDICARE ==
--- NOTE | 2018-04-10 13:05 | MM ---
Reason for exam: screening (asymptomatic). Last mammogram was performed 1 year ago. History: Patient is postmenopausal. Family history of breast cancer in grandmother. Physical Findings: A clinical breast exam by your physician is recommended on an annual basis and results should be correlated with mammographic findings. MG 3D Screening Mammo W/Cad Bilateral CC and MLO view(s) were taken. Prior study comparison: March 23, 2017, bilateral MG 3d diag mammo w/cad LUBNA. September 10, 2015, bilateral MG 3d screening mammo w/cad. The breast tissue is heterogeneously dense. This may lower the sensitivity of mammography. Finding: There are typically benign vascular, round calcifications in both breasts. There is a chronic nodularity bilaterally. Focal asymmetry right anterior upper outer quadrant on MLO 50/76 and CC 48/67. Increase in size and more defined since March 23, 2017 and September 10, 2015. ASSESSMENT: Incomplete: need additional imaging evaluation, BI-RAD 0 RECOMMENDATION: Ultrasound of the right breast. [facility] will attempt to contact patient to return for ultrasound.
== END | disposition home or self-care (01) ==
LOC: RADMAMWWP 06:48
PROVIDERS: ATTEND Family Medicine
DX: Z12.31 Encounter for screening mammogram for malignant neoplasm of breast (principal)
CPT/HCPCS: 77063; 77067

== ENCOUNTER → 2018-04-13 | Outpatient (CLI) | payer MEDICARE ==
--- NOTE | 2018-04-13 10:44 | USB ---
Reason for exam: additional evaluation requested from abnormal screening. History: Patient is postmenopausal. Family history of breast cancer in grandmother. Physical Findings: Nurse Summary: 1cm firm nodule at 11 o'clock, new nipple inversion right breast (nurse dw). US Breast Workup Limited RT Right limited breast ultrasound including focal area of concern, retroareolar and axilla demonstrates a 0.6 x 0.3 x 0.6cm cystic lesion at 10 o'clock and a 0.3 x 0.2 x 0.3cm lesion too small to characterize at 11 o'clock. These results were verbally communicated with the patient and result sheet given to the patient on 04/13/18. ASSESSMENT: Benign, BI-RAD 2 RECOMMENDATION: Return to routine screening mammogram schedule for both breasts.
== END | disposition home or self-care (01) ==
LOC: RADUSWWP 06:59
PROVIDERS: ATTEND Family Medicine
DX: R92.8 Other abnormal and inconclusive findings on diagnostic imaging of breast (principal)

== ENCOUNTER → 2018-05-28 | Outpatient (CLI) | payer MEDICARE ==
[2018-05-28 09:43] VITALS: BP 99/64; PULSE 61; TEMP 98; BMI 31.3
--- NOTE | 2018-05-28 10:32 | P.GSHP ---
History of Present Illness H&P Date: 05/28/18 The patient is a 73-year-old white female who presents with a complaint of the right nipple receding. She is uncertain as to how long this has been going on. Additionally she feels a nodule in her right breast. It is located posterior to the nipple areolar complex. She had a recent mammogram performed [id number] which showed benign vascular calcifications bilaterally and chronic nodularity bilaterally. There was noted to be a focal asymmetry in the right anterior upper outer quadrant of the breast. The patient had an ultrasound of the right breast which did not reveal anything of concern and repeat mammogram in 1 year was recommended. The patient has no history of any trauma to her breast. The patient has no history of any recent breast infection. Family history: 1. maternal grandmother: breast cancer 2. brother: lung 3. mother: ? colon cancer 4. grandmother paternal: colon Hormonal History: menarche: 16 : 2, 2 children first at 20, breast fed: no menopause: hysterectomy at 31 for bleeding, left ovaries, ovaries removed later at bladder suspension BCP: 5 years hormones: none Past surgical history: 1. Bladder suspension/ooperectomy 2. Bilateral knee replacement 3. Left breast 4. Partial colon resection: diverticulitis 5. hysterctomy 6. gallbladder 7. appendectomy 8. foot 9. hernia repair mesh placed Past medical history: 1. diabetes 2. HTN 3. obesity 4. high cholesterol 5. depression 6. back pain Social History: smoke: none alcohol: none drugs: none - Constitutional Constitutional: Denies chills, Denies fever - EENT Eyes: bilateral blurred vision (glaucoma, macular degeneration, cataracts removed), denies pain Ears: bilateral: decreased hearing, tinnitus (meniers disease) Ears, nose, mouth and throat: Denies headache, Denies sore throat - Breasts Breasts: bilateral: as per HPI - Cardiovascular Cardiovascular: Reports high blood pressure, Reports irregular heart beat - Respiratory Respiratory: Reports cough - Gastrointestinal Comment: colon resection for diverticular disease pancreatitis Gastrointestinal: Denies abdominal pain, Denies diarrhea, Denies nausea, Denies vomiting - Genitourinary (Female) Genitourinary: Denies dysuria, Denies hematuria - Menstruation Menstruation: Reports post hysterectomy - Musculoskeletal Comment: osteoartheritis Musculoskeletal: Reports myalgias - Integumentary Integumentary: Denies pruritus, Denies rash - Neurological Neurological: Reports numbness, Reports weakness - Psychiatric Psychiatric: Denies anxiety, Denies depression - Endocrine Comment: diabetes - Hematologic/Lymphatic Comment: none - Allergic/Immunologic Comment: Pcn, milk, statins Allergic/Immunologic: Reports seasonal allergies Past Medical History Past Medical History: Chest Pain / Angina, GERD/Reflux, Hypertension Additional Past Medical History / Comment(s): Other HX: intestinal adhesions, RESTLESS LEG, HERNIA, MENIERES, DIVERTICULITIS, HX GLAUCOMA R eye, NEUROPATHY. 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 History of Any Multi-Drug Resistant Organisms: None Reported Past Surgical History: Appendectomy, Bladder Surgery, Bowel Resection, Cholecystectomy, Ear Surgery, Heart Catheterization, Hernia Repair, Hysterectomy , Joint Replacement, Orthopedic Surgery, Tonsillectomy, Tubal Ligation Additional Past Surgical History / Comment(s): 11/03/14 diagnostic laparoscopy with lysis of adhesions. LUNBA KNEE REPLACEMENT, EYE surgery for cataracts bilaterally with lens implants, TUBE IN RIGHT EAR FOR MENIERES, SX ON LEFT THUMB , hiatal. hernia repair, abdominal ventral hernia repair, cardiac cath in her 30's which was negative. Past Anesthesia/Blood Transfusion Reactions: Motion Sickness, Postoperative Nausea & Vomiting (PONV) Additional Past Anesthesia/Blood Transfusion Reaction / Comment(s): MENIERE'S, STATES "JAW LOCKED UP AFTER PREVIOUS INTUBATION" Past Psychological History: Depression Additional Psychological History / Comment(s): Pt lives alone in her apt is independant uses no assistive devices. She drives a car. 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 Smoking Status: Former smoker Past Alcohol Use History: None Reported Additional Past Alcohol Use History / Comment(s): smoked x 5 years off and on l; ess then a ppd, quit 30 years ago Past Drug Use History: None Reported - Past Family History Brother(s) Family Medical History: Cancer Mother Family Medical History: Cancer, CVA/TIA, Diabetes Mellitus, Deep Vein Thrombosis (DVT) Additional Family Medical History / Comment(s): STOMACH CANCER Father Family Medical History: No Reported History Additional Family Medical History / Comment(s): COMMITTED SUICIDE Medications and Allergies Home Medications Medication Instructions Recorded Confirmed Type Fenofibrate [Lofibra] 160 mg PO DAILY 01/23/14 05/28/18 History Gabapentin [Neurontin] 200 mg PO HS 01/23/14 05/28/18 History Omeprazole 40 mg PO DAILY 01/23/14 05/28/18 History HYDROcodone/APAP 10-325MG [[place] 1 tab PO Q8H PRN 09/03/14 05/28/18 History 10-325] Cholecalciferol [Vitamin D3] 5,000 unit PO DAILY 05/07/15 05/28/18 History Niacin 1,500 mg PO DAILY 06/26/16 05/28/18 History Ezetimibe [Zetia] 10 mg PO DAILY 01/18/18 05/28/18 History Furosemide [Lasix] 40 mg PO DAILY 01/18/18 05/28/18 History Gabapentin [Neurontin] 100 mg PO DAILY 01/18/18 05/28/18 History Losartan [Cozaar] 25 mg PO DAILY 01/18/18 05/28/18 History Nortriptyline HCl [Pamelor] 25 mg PO HS 01/18/18 05/28/18 History Ondansetron Odt [Zofran Odt] 4 mg PO Q8HR PRN #10 tab 01/18/18 05/28/18 Rx Triamterene/Hydrochlorothiazid 1 cap PO DAILY 01/18/18 05/28/18 History [Dyazide 37.5-25 Capsule] Vits A,C,E/Lutein/Minerals 1 tab PO BID 01/18/18 05/28/18 History [Ocuvite with Lutein Tablet] rOPINIRole HCL [Requip] 4 mg PO HS 01/18/18 05/28/18 History Allergies Allergy/AdvReac Type Severity Reaction Status Date / Time Penicillins Allergy Rash/Hives Verified 01/18/18 12:00 Milk Containing Products AdvReac Nausea Verified 01/18/18 12:00 [Dairy] Surgical - Exam Vital Signs Temp Pulse BP Pulse Ox 98 F 61 99/64 99 05/28/18 09:37 05/28/18 09:37 05/28/18 09:37 05/28/18 09:37 BMI 31.4 kg/m2 - General obese - Eyes normal ocular movement - ENT no hearing loss, no congestion - Neck no masses, trachea midline - Respiratory normal respiratory effort, clear to percussion, clear to auscultation - Cardiovascular Rhythm: regular Heart Sounds: normal: S1, S2 - Abdomen Abdomen: soft, non tender, no guarding, no rigid, no rebound - Integumentary no rash, no abnormal pigmentation - Neurologic no disoriented, no combative - Musculoskeletal normal gait, normal posture - Psychiatric oriented to time, oriented to person, oriented to place, speech is normal, memory intact Breast examination: Right breast: Multi-positional exam reveals that the right nipple intermittently becomes inverted and that there is a area of increased nodularity at the 12 o'clock position Right axilla: No adenopathy of concern Left breast: Multi-positional exam no dominant masses or nodules of concern Left axilla: No adenopathy of concern Results Mammogram and ultrasound results reviewed from March, Assessment and Plan Assessment: Impression: 1. Palpable abnormality right breast, with right nipple inversion, this is not seen radiographically 2. Osteoarthritis 3. Hypertension 4. Prior colon resection for diverticular disease 5. High cholesterol 6. Diabetes 7. History of back pain 8. History of pancreatitis 9. History of depression in the past Plan: 1. FNA of palpable abnormality right breast 2. Depending on results of this surgical resection, if this is negative would still proceed with surgical resection as this is a definite palpable abnormality 3. Medical management of medical problems Risk and benefits of an FNA were discussed with the patient. She agrees to proceed. CC:Dr. Hernandez
--- NOTE | 2018-05-28 10:36 | P.PCN ---
Date of Procedure: 05/28/18 Preoperative Diagnosis: right breast mass at 12 o clock Postoperative Diagnosis: same Procedure(s) Performed: FNA of the right breast at 12 oclock Anesthesia: none Surgeon: Christine Reese Estimated Blood Loss (ml): 0 Pathology: other (cytology from right breast) Condition: stable Disposition: same day Indications for Procedure: Palpable nodule/change right breast at 12:00 Operative Findings: Nodule right breast Description of Procedure: The area of concern in the right breast was prepped using alcohol. A 22-gauge needle on a 10 mL syringe was used to introduce into the area of concern. Multiple passes were done and cytology was retrieved. The specimen was prepared and sent to pathology. The patient tolerated the procedure in stable condition. The patient will follow-up next week for results of cytology.
== END | disposition home or self-care (01) ==
LOC: WWCWWP 08:49
PROVIDERS: ATTEND Surgery
DX: N64.9 Disorder of breast, unspecified (principal)
CPT/HCPCS: 88173

== ENCOUNTER → 2018-06-08 | Outpatient (CLI) | payer MEDICARE ==
[2018-06-08 16:04] VITALS: BP 129/69; PULSE 98; RESP 12; TEMP 97; BMI 31.3
--- NOTE | 2018-06-08 16:22 | P.PN ---
Subjective Progress Note Date: 06/08/18 Principal diagnosis: Patient is a 73-year-old white female who is status post right breast FNA of the 12:00 area. The cellular aspirate was adipose tissue and bladder nondiagnostic. The patient continues to have a palpable abnormality at this site and we have therefore discussed doing a core biopsy of the vicinity. She has some mild ecchymosis related to the area with a small hematoma most likely in the area but definite persistent nodularity. The patient radiographically did not have any lesions noted in this area on mammogram or ultrasound. Additionally the patient states that in the contralateral breast at 12:00 she developed some bruising and has some small nodularity at that site as well. This is new and appears to be related to hematoma related to the bruising. Objective - Vital Signs Vital signs: Vital Signs Temp 97 F L 06/08/18 15:59 Pulse 98 06/08/18 15:59 Resp 12 06/08/18 15:59 BP 129/69 06/08/18 15:59 Pulse Ox 99 06/08/18 15:59 Intake & Output 06/07/18 06/08/18 06/08/18 18:59 06:59 18:59 Weight 80.286 kg - Exam BMI 31.4 - Constitutional General appearance: Present: obese - EENT Eyes: Present: EOMI ENT: Present: hearing grossly normal - Respiratory Respiratory: bilateral: CTA - Cardiovascular Rhythm: regular Heart sounds: normal: S1, S2 - Gastrointestinal General gastrointestinal: Present: soft - Integumentary Integumentary Comment(s): Right breast: The 12:00 area in the right breast is some mild ecchymosis, there remains nodularity at this site with probable small hematoma related to the prior FNA Mild ecchymosis at the 12:00 area with some slight nodularity believed to be related to small hematoma at the site - Musculoskeletal Musculoskeletal: Present: gait normal - Psychiatric Psychiatric: Present: A&O x's 3, appropriate affect, intact judgment & insight Assessment and Plan Assessment: Impression: 1. fibrocystic breast changes 2. HTN 3. obesity 4. Cholesterol 5. Persistent nodularity 12:00 right breast 6. Small area of rectum ecchymosis 12:00 region left breast Have had a long discussion with the patient regarding the choices of the core biopsy of the area of concern in the right breast versus excision in the operating room. The patient states that she has noted definite nodularity in the site prior to our FNA and does not want a core biopsy but wishes us to proceed with open excisional biopsy. She understands the risks and benefits and wishes to proceed. Plan: 1. Open excisional biopsy palpable nodule in the right breast 2. Radical management of medical problems Cc: Dr. Gisell Hernandez
== END ==
LOC: WWCWWP 15:25
PROVIDERS: ATTEND Surgery
DX: Z53.9 Procedure and treatment not carried out, unspecified reason (principal)

== ENCOUNTER 2018-07-10 05:54 | Day surgery (SDC) | payer MEDICARE ==
[2018-07-05 10:58] VITALS: BMI 30.8
[~2018-07-10 05:54] MED LIST: DEXAMETHASONE SOD PHOSPHATE 10 MG/ML 1 ML VIAL IV ONE; HEPARIN SODIUM,PORCINE 5,000 UNIT/ML 1 ML VIAL SQ ONE; HYDROmorphone 0.5 MG/0.5 ML SYRINGE IVP PRN; LACTATED RINGERS 1,000 ML IV SCH; LIDOCAINE 1% 20 ML VIAL (10MG/ML) FOR IV START INTRADERMA PRN; MIDAZOLAM 2 MG/2 ML VIAL IV PRN; ONDANSETRON 4 MG/2 ML VIAL IVP ONE; Pre Op ABX Message 1 EACH MISC MISCELLANE ONE; SCOPOLAMINE 1.5MG/72HR PATCH TRANSDERM ONE
[2018-07-10] MEDS ORDERED: LACTATED RINGERS 1,000 ML IV ONE (06:13)
[2018-07-10 06:17] LABS: Glucose,Whole Blood 124 mg/dL (75-99)
[2018-07-10] MEDS ORDERED: SUCCINYLCHOLINE CHLORIDE 100 MG/5 ML SYR IV ONE (07:34)
[2018-07-10] MEDS ORDERED: MIDAZOLAM 2 MG/2 ML VIAL ONE (07:34)
[2018-07-10] MEDS ORDERED: PHENYLEPHRINE-0.9% NACL SYG 1 MG/10 ML SYRINGE ONE (07:34)
[2018-07-10] MEDS ORDERED: fentaNYL (PF) 50 MCG/ML 2 ML AMP ONE (07:34)
[2018-07-10] MEDS ORDERED: ePHEDrine SULFATE/0.9% NACL/PF 50 MG/5 ML SYRINGE IV ONE (07:34)
[2018-07-10] MEDS ORDERED: LIDOCAINE 1% INJ 10MG/ML (20 ML MDV) ONE (07:34)
[2018-07-10] MEDS ORDERED: PROPOFOL 10 MG/ML 20 ML VIAL IV ONE (07:34)
[2018-07-10] MEDS ORDERED: HEPARIN SODIUM,PORCINE 5,000 UNIT/ML 1 ML VIAL SQ ONE (07:46)
[2018-07-10] MEDS ORDERED: SODIUM CHLORIDE 0.9% 50 ML with CLINDAMYCIN 600 MG IV ONE ×2 (07:50)
[2018-07-10] MEDS ORDERED: LIDOCAINE (PF) 10 MG/ML 2 ML VIAL SQ ONE ×2 (07:59)
--- NOTE | 2018-07-10 08:29 | P.OP ---
Date of Procedure: 07/10/18 Preoperative Diagnosis: Mass right breast Postoperative Diagnosis: Same, FNA nondiagnostic Procedure(s) Performed: Right breast excisional biopsy Anesthesia: CAROLINEA Surgeon: Christine Reese Estimated Blood Loss (ml): 5 IV fluids (ml): 500 Pathology: other (Right breast tissue) Condition: stable Disposition: PACU Indications for Procedure: Palpable mass right breast, increasing in size, FNA nondiagnostic Operative Findings: Palpable mass 12:00 right breast, FNA nondiagnostic patient did not want core biopsy Description of Procedure: The patient is a 73-year-old white female who presents with a palpable mass in the right breast. Radiographs were nondiagnostic. An FNA of the area was nondiagnostic. Patient was given the option of a core biopsy but just wishes excisional biopsy. The patient was taken to the operating suite and following induction of anesthesia the right breast was prepped and draped in a sterile fashion. Incision was made over the palpable abnormality. Wide excision was performed. The wound was examined for hemostasis. This was controlled using the electrocautery. After assured that hemostasis was attained the wound was irrigated. And the deep tissues were closed using a Vicryl suture. The skin was closed using a 4-0 Monocryl. The specimen was painted for orientation. The patient tolerated the procedure in stable condition.
--- NOTE | 2018-07-10 08:30 | P.DS ---
Providers Attending physician: Christine Resee Primary care physician: Damir Hernandez Plan - Discharge Summary New Discharge Prescriptions: No Action Omeprazole 40 mg PO QAM Gabapentin [Neurontin] 300 mg PO HS HYDROcodone/APAP 10-325MG [[place] 10-325] 1 tab PO Q8H PRN PRN Reason: Pain Cholecalciferol [Vitamin D3] 5,000 unit PO DAILY rOPINIRole HCL [Requip] 4 mg PO HS Nortriptyline HCl [Pamelor] 25 mg PO HS Gabapentin [Neurontin] 200 mg PO QAM Furosemide [Lasix] 40 mg PO DAILY Ezetimibe [Zetia] 10 mg PO DAILY Triamterene/Hydrochlorothiazid [Dyazide 37.5-25 Capsule] 1 cap PO QAM Losartan [Cozaar] 25 mg PO QAM Ondansetron Odt [Zofran Odt] 4 mg PO Q8HR PRN #10 tab PRN Reason: Nausea sitaGLIPtin PHOSPHATE [Januvia] 100 mg PO DAILY Evolocumab [Repatha Syringe] 140 mg SQ Q14D Discharge Medication List Gabapentin [Neurontin] 300 mg PO HS 01/23/14 [History] Omeprazole 40 mg PO QAM 01/23/14 [History] HYDROcodone/APAP 10-325MG [[place] 10-325] 1 tab PO Q8H PRN 09/03/14 [History] Cholecalciferol [Vitamin D3] 5,000 unit PO DAILY 05/07/15 [History] Ezetimibe [Zetia] 10 mg PO DAILY 01/18/18 [History] Furosemide [Lasix] 40 mg PO DAILY 01/18/18 [History] Gabapentin [Neurontin] 200 mg PO QAM 01/18/18 [History] Losartan [Cozaar] 25 mg PO QAM 01/18/18 [History] Nortriptyline HCl [Pamelor] 25 mg PO HS 01/18/18 [History] Ondansetron Odt [Zofran Odt] 4 mg PO Q8HR PRN #10 tab 01/18/18 [Rx] Triamterene/Hydrochlorothiazid [Dyazide 37.5-25 Capsule] 1 cap PO QAM 01/18/18 [ History] rOPINIRole HCL [Requip] 4 mg PO HS 01/18/18 [History] Evolocumab [Repatha Syringe] 140 mg SQ Q14D 07/05/18 [History] sitaGLIPtin PHOSPHATE [Januvia] 100 mg PO DAILY 07/05/18 [History] Follow up Appointment(s)/Referral(s): Christine Reese MD [STAFF PHYSICIAN] - 1 Week Activity/Diet/Wound Care/Special Instructions: do not drive today may shower after 48 hours Discharge Disposition: HOME SELF-CARE
[2018-07-10 08:47] VITALS: TEMP 96.9
[2018-07-10 08:48] VITALS: RESP 16
[2018-07-10 09:26] VITALS: BP 152/83; PULSE 92
[2018-07-10] MEDS ORDERED: HYDROcodone/APAP 10-325MG 1 EACH TAB PO ONE (09:33)
== END 2018-07-10 10:05 | disposition home or self-care (01) ==
LOC: OR 05:54 → 6PED 09:34 → OR 09:34
PROVIDERS: ATTEND Surgery
DX: N60.31 Fibrosclerosis of right breast (principal); N64.1 Fat necrosis of breast; N61.0 Mastitis without abscess; K21.9 Gastro-esophageal reflux disease without esophagitis; G25.81 Restless legs syndrome; I10 Essential (primary) hypertension; E78.5 Hyperlipidemia, unspecified; Z88.0 Allergy status to penicillin; Z88.6 Allergy status to analgesic agent; Z88.8 Allergy status to other drugs, medicaments and biological substances; Z91.011 Allergy to milk products; Z79.899 Other long term (current) drug therapy
CPT/HCPCS: 88307; 19120; J2250; J2001 ×2; J1644; J1100; J2405; J3010; J2370; J0330; J2704

== ENCOUNTER 2018-07-11 09:20 | Emergency (ER) | payer MEDICARE ==
[2018-07-11 09:26] VITALS: RESP 18; TEMP 98.1
[2018-07-11] MEDS ORDERED: IPRATROPIUM-ALBUTEROL 3 ML NEB INHALATION STA (09:46)
--- NOTE | 2018-07-11 09:51 | ED ---
ENT HPI - General Chief complaint: ENT Stated complaint: POST OP MILLER Time Seen by Provider: 07/11/18 09:35 Source: patient, RN notes reviewed Mode of arrival: ambulatory Limitations: no limitations - History of Present Illness Initial comments: 73-year-old female presents emergency Department chief complaint of sore throat , shortness of breath. Patient states that she was intubated yesterday for breast biopsy. Patient states that they had difficulty intubating her and she expects this sore throat but states that she woke up with shortness of breath today and states she feels like she has pneumonia. Patient states she's had pneumonia in the past. Denies any other lung disease. Denies chest pain, fever , chills, nausea, vomiting, diarrhea constipation. Patient called her doctor who advised to come emergency department. - Related Data Home Medications Medication Instructions Recorded Confirmed Gabapentin [Neurontin] 300 mg PO HS 01/23/14 07/11/18 Omeprazole 40 mg PO QAM 01/23/14 07/11/18 HYDROcodone/APAP 10-325MG [[place] 1 tab PO Q8H PRN 09/03/14 07/11/18 10-325] Cholecalciferol [Vitamin D3] 5,000 unit PO DAILY 05/07/15 07/11/18 Ezetimibe [Zetia] 10 mg PO DAILY 01/18/18 07/11/18 Furosemide [Lasix] 40 mg PO DAILY 01/18/18 07/11/18 Gabapentin [Neurontin] 200 mg PO QAM 01/18/18 07/11/18 Losartan [Cozaar] 25 mg PO QAM 01/18/18 07/11/18 Nortriptyline HCl [Pamelor] 25 mg PO HS 01/18/18 07/11/18 Triamterene/Hydrochlorothiazid 1 cap PO QAM 01/18/18 07/11/18 [Dyazide 37.5-25 Capsule] rOPINIRole HCL [Requip] 4 mg PO HS 01/18/18 07/11/18 Evolocumab [Repatha Syringe] 140 mg SQ Q14D 07/05/18 07/11/18 sitaGLIPtin PHOSPHATE [Januvia] 100 mg PO DAILY 07/05/18 07/11/18 Allergies Allergy/AdvReac Type Severity Reaction Status Date / Time Penicillins Allergy Rash/Hives Verified 07/11/18 10:37 [id number] Reductase Allergy Rash/Hives Verified 07/11/18 10:37 Inhibitor Milk Containing Products AdvReac Nausea Verified 07/11/18 10:37 [Dairy] Review of Systems ROS Statement: Those systems with pertinent positive or pertinent negative responses have been documented in the HPI. ROS Other: All systems not noted in ROS Statement are negative. Past Medical History Past Medical History: Chest Pain / Angina, Diabetes Mellitus, Eye Disorder, GERD /Reflux, Hearing Disorder / Deafness, Hyperlipidemia, Hypertension, Musculoskeletal Disorder, Osteoarthritis (OA), Pneumonia Additional Past Medical History / Comment(s): Intestinal adhesions, RESTLESS LEG , Hiatal HERNIA, MENIERES, DIVERTICULITIS, GLAUCOMA R eye, NEUROPATHY bilateral legs, hx anemia. Irregular heartbeat. Degenerative Disc Disease. Difficulty hearing certain tones. History of Any Multi-Drug Resistant Organisms: None Reported Past Surgical History: Appendectomy, Bladder Surgery, Bowel Resection, Cholecystectomy, Ear Surgery, Heart Catheterization, Hernia Repair, Hysterectomy , Joint Replacement, Orthopedic Surgery, Tonsillectomy, Tubal Ligation Additional Past Surgical History / Comment(s): Diagnostic laparoscopy with lysis of adhesions. LUBNA KNEE REPLACEMENT, EYE surgery for cataracts bilaterally with lens implants, TUBE IN RIGHT EAR FOR MENIERES, LEFT THUMB SURGERY, hiatal hernia repair, abdominal ventral hernia repair. Past Anesthesia/Blood Transfusion Reactions: Motion Sickness, Postoperative Nausea & Vomiting (PONV) Additional Past Anesthesia/Blood Transfusion Reaction / Comment(s): MENIERE'S, STATES "JAW LOCKED UP AFTER PREVIOUS INTUBATION". Past Psychological History: Depression Smoking Status: Former smoker Past Alcohol Use History: None Reported Past Drug Use History: None Reported - Past Family History Brother(s) Family Medical History: Cancer Mother Family Medical History: Cancer, CVA/TIA, Diabetes Mellitus, Deep Vein Thrombosis (DVT) Additional Family Medical History / Comment(s): STOMACH CANCER Father Family Medical History: No Reported History Additional Family Medical History / Comment(s): COMMITTED SUICIDE General Exam General appearance: alert, in no apparent distress Head exam: Present: atraumatic, normocephalic, normal inspection Eye exam: Present: normal appearance, PERRL, EOMI. Absent: scleral icterus, conjunctival injection, periorbital swelling ENT exam: Present: mucous membranes moist, TM's normal bilaterally, normal external ear exam. Absent: normal oropharynx (Mild erythema posterior pharynx) Neck exam: Present: normal inspection, full ROM. Absent: tenderness, meningismus, lymphadenopathy Respiratory exam: Present: wheezes (Minimal). Absent: normal lung sounds bilaterally, respiratory distress, rales, rhonchi, stridor Cardiovascular Exam: Present: regular rate, normal rhythm, normal heart sounds. Absent: systolic murmur, diastolic murmur, rubs, gallop, clicks Course Vital Signs 07/11/18 07/11/18 07/11/18 09:22 10:14 10:24 Temperature 98.1 F Pulse Rate 87 88 90 Respiratory 18 Rate Blood Pressure 148/93 O2 Sat by Pulse 100 Oximetry 07/11/18 11:13 Temperature Pulse Rate 82 Respiratory 18 Rate Blood Pressure 141/88 O2 Sat by Pulse 97 Oximetry - Reevaluation(s) Reevaluation #1: 07/11/18 11:25 Patient reevaluated at this time. Patient feels improved after DuoNeb treatment. Medical Decision Making - Medical Decision Making 73-year-old female present for sore throat, shortness of breath after intubation yesterday. Patient was given DuoNeb treatment symptoms have resolved. X-ray obtained abnormality. patient discharged with inhaler return parameters were discussed. Disposition Clinical Impression: Acute bronchospasm Disposition: HOME SELF-CARE Condition: Stable Instructions: Bronchospasm (ED) Additional Instructions: Please return to the Emergency Department if symptoms worsen or any other concerns. Is patient prescribed a controlled substance at d/c from ED?: No Referrals: Damir Hernandez DO [Primary Care Provider] - 1-2 days Time of Disposition: 11:27
--- NOTE | 2018-07-11 10:47 | XR ---
EXAMINATION TYPE: XR chest 2V DATE OF EXAM: 07/11/2018 COMPARISON: 05/02/2017 HISTORY: 73-year-old female with cough and pain TECHNIQUE: PA and lateral views FINDINGS: Heart normal size. Atherosclerotic arch calcifications. Mild diffuse interstitial prominence is uncha nged. Some strandy atelectasis persists at the retrocardiac region, left base. No consolidation or pl eural effusion otherwise seen. IMPRESSION: Chronic changes without acute cardiopulmonary process.
[2018-07-11 11:13] VITALS: BP 141/88; PULSE 82
== END 2018-07-11 11:35 | disposition home or self-care (01) ==
LOC: EC 09:20
DX: J98.01 Acute bronchospasm (principal); E78.5 Hyperlipidemia, unspecified; I10 Essential (primary) hypertension; E11.42 Type 2 diabetes mellitus with diabetic polyneuropathy; G25.81 Restless legs syndrome; K21.9 Gastro-esophageal reflux disease without esophagitis; M19.90 Unspecified osteoarthritis, unspecified site; F32.9 Major depressive disorder, single episode, unspecified; H91.90 Unspecified hearing loss, unspecified ear; Z87.891 Personal history of nicotine dependence; Z88.0 Allergy status to penicillin; Z88.8 Allergy status to other drugs, medicaments and biological substances; Z91.011 Allergy to milk products; Z79.84 Long term (current) use of oral hypoglycemic drugs; Z79.899 Other long term (current) drug therapy; Z96.653 Presence of artificial knee joint, bilateral
CPT/HCPCS: 71046; 94640; 99283

== ENCOUNTER → 2018-07-19 | Outpatient (CLI) | payer MEDICARE ==
[2018-07-19 10:06] VITALS: BP 139/89; PULSE 76; RESP 18; TEMP 97.9; BMI 30.8
--- NOTE | 2018-07-19 10:43 | P.PN ---
Subjective Progress Note Date: 07/19/18 Principal diagnosis: Postoperative right breast biopsy, evaluation of nodule left breast Karolina is a 73-year-old white female who is status post excisional biopsy of an area of concern in the right breast. Pathology revealed nodular fat necrosis with associated fibrosis, inflammation, and dystrophic calcifications. This was negative for malignancy. From this site she is healing well with no complaints. The patient brings to my attention a new area of concern in the left breast. This has increased in size and is minimally tender. She is not taking any blood thinners. She is concerned because this is a new finding in the breast. She did have bilateral mammograms performed in March and no lesion of concern was identified in the left breast at that time. This finding is new since that time. Objective - Vital Signs Vital signs: Vital Signs Temp 97.9 F 07/19/18 09:50 Pulse 76 07/19/18 09:50 Resp 18 07/19/18 09:50 BP 139/89 07/19/18 09:50 Pulse Ox 98 07/19/18 09:50 Intake & Output 07/18/18 07/19/18 07/19/18 18:59 06:59 18:59 Weight 78.925 kg - Exam BMI 30.8 - Constitutional General appearance: Present: obese - EENT Eyes: Present: EOMI ENT: Present: hearing grossly normal - Respiratory Respiratory: bilateral: CTA - Cardiovascular Rhythm: regular Heart sounds: normal: S1, S2 - Integumentary Integumentary Comment(s): Incision right breast clean and dry Left breast: Left breast multiple positional examination revealed area of increased nodularity 12 o'clock position of the left breast Left axilla: No adenopathy of concern - Musculoskeletal Musculoskeletal: Present: gait normal - Psychiatric Psychiatric: Present: A&O x's 3, appropriate affect Assessment and Plan Assessment: Impression: Right breast: Pathology benign Lesion noted in the left breast Plan: 1. Right breast repeat mammogram in 6 months time 2. Left breast FNA of palpable area of nodularity CC: Dr. Gisell Hernandez
--- NOTE | 2018-07-19 10:51 | P.PCN ---
Date of Procedure: 07/19/18 Preoperative Diagnosis: Increased nodularity left breast 12:00 Postoperative Diagnosis: Same Procedure(s) Performed: Fine-needle aspiration of 2 areas of concern in the left breast at 12:00 Surgeon: Christine Reese Estimated Blood Loss (ml): 1 Pathology: other (Cytology from breast FNA) Condition: stable Disposition: same day Indications for Procedure: Newly area of increased nodularity 12:00 left breast Operative Findings: Fibrofatty breast tissue Description of Procedure: On physical examination at the 12 o'clock position of the left breast there is noted to be an area of increased nodularity. This is new from prior examination. The patient was given the option of an FNA of the area and risk and benefits were discussed with the patient. She agreed to an FNA of the area. The area was prepped using alcohol. A 21-gauge needle with on a 10 mL syringe was used to make multiple passes into the area and the specimen was then collected. The specimen was prepped on slides and sent to pathology. On examination there was a cystic component which appeared to have resolved but a second area of increased density was noted somewhat deep to the first area. An FNA of this area was performed as well. Again the area was prepped using alcohol. 21-gauge needle on a 5 cc syringe was utilized to make multiple passes into the area and the cytology specimen was obtained and processed for pathology. The patient tolerated procedure in stable condition. The patient will return next week for results. Cc: Dr. Gisell Hernandez
== END | disposition home or self-care (01) ==
LOC: WWCWWP 09:21
PROVIDERS: ATTEND Surgery
DX: N64.9 Disorder of breast, unspecified (principal)
CPT/HCPCS: 88173

== ENCOUNTER → 2018-07-27 | Outpatient (CLI) | payer MEDICARE ==
[2018-07-27 08:06] VITALS: BP 146/82; PULSE 96; RESP 18; TEMP 98; BMI 31.1
--- NOTE | 2018-07-27 08:45 | P.GSHP ---
History of Present Illness H&P Date: 07/27/18 Chief Complaint: atypia left breast FNA Karolina is a 73-year-old white female who presented with complaint of right nipple receding initially. She was uncertain as to how long this up and going on. Additionally she felt a nodule in her right breast posterior to the nipple areolar complex. A mammogram performed March 2018 show benign vascular calcifications bilaterally and chronic nodularity. There was a focal asymmetry in the right anterior upper outer quadrant of the breast. An ultrasound was performed which did not reveal anything of concern and repeat mammogram in 1 year was recommended. At that time on breast examination the patient was noted to have increased nodularity at the 12 o'clock position. An FNA was performed of this area which was nondiagnostic. The patient was given the option of a core biopsy which she chose not to have done. She did have excision of the palpable abnormality in the operating room which revealed fat necrosis. The patient since then developed a palpable abnormality in her left breast at the upper aspect at 12:00. The patient denied any trauma to this area. An FNA was performed of this area and the FNA revealed minimally cellular specimen consisting of fragments of adipose tissue with an isolated cluster of mildly atypical cells. The patient has a definite palpable abnormality which is new at the 12:00 site in the left breast. Family history: 1. Maternal grandmother: Breast cancer 2. Brother: Lung cancer 3. Mother: Questionably colon cancer 4. Paternal grandmother: Colon cancer Hormonal history: Menarche: 16 Pregnancies: 2, 2 children first at 20, did not breast-feed Menopause: Hysterectomy at 31 for bleeding or ovaries were later removed at the time of a bladder suspension control pills: 5 years Hormones: Negative Past surgical history: 1. Bladder suspension/nephrectomy 2. Bilateral knee replacement 3. Left breast surgery 4. Partial colon resection diverticulitis 5. Right breast biopsy 6. Hysterectomy 7. Cholecystectomy 8. Appendectomy 9. Foot surgery 10. Hernia repair with mesh Past medical history: 1. Diabetes 2. Hypertension 3. Obesity 4. High cholesterol 5. Depression 6. Back pain Social history: Smoke: Negative Alcohol: Negative Drugs: Negative Social history: - Constitutional Constitutional: Denies chills, Denies fever - EENT Eyes: bilateral blurred vision (Glaucoma, macular degeneration, cataracts removed) Ears: bilateral: decreased hearing, tinnitus (Mnire's disease) Ears, nose, mouth and throat: Denies headache, Denies sore throat - Breasts Breasts: bilateral: as per HPI - Cardiovascular Cardiovascular: Reports high blood pressure, Reports irregular heart beat - Respiratory Respiratory: Reports cough - Gastrointestinal Comment: Colon resection for diverticular disease, history of pancreatitis - Genitourinary (Female) Genitourinary: Denies dysuria, Denies hematuria - Menstruation Menstruation: Reports postmenopausal - Musculoskeletal Comment: Osteoarthritis, reports myalgias Musculoskeletal: Reports myalgias - Integumentary Integumentary: Denies pruritus, Denies rash - Neurological Neurological: Reports numbness, Reports weakness - Psychiatric Psychiatric: Denies anxiety, Denies depression - Endocrine Comment: Diabetes - Hematologic/Lymphatic Comment: none - Allergic/Immunologic Allergic/Immunologic: Reports seasonal allergies Past Medical History Past Medical History: Chest Pain / Angina, Diabetes Mellitus, Eye Disorder, GERD /Reflux, Hearing Disorder / Deafness, Hyperlipidemia, Hypertension, Musculoskeletal Disorder, Osteoarthritis (OA), Pneumonia Additional Past Medical History / Comment(s): Intestinal adhesions, RESTLESS LEG , Hiatal HERNIA, MENIERES, DIVERTICULITIS, GLAUCOMA R eye, NEUROPATHY bilateral legs, hx anemia. Irregular heartbeat. Degenerative Disc Disease. Difficulty hearing certain tones. History of Any Multi-Drug Resistant Organisms: None Reported Past Surgical History: Appendectomy, Bladder Surgery, Bowel Resection, Cholecystectomy, Ear Surgery, Heart Catheterization, Hernia Repair, Hysterectomy , Joint Replacement, Orthopedic Surgery, Tonsillectomy, Tubal Ligation Additional Past Surgical History / Comment(s): Diagnostic laparoscopy with lysis of adhesions. LUBNA KNEE REPLACEMENT, EYE surgery for cataracts bilaterally with lens implants, TUBE IN RIGHT EAR FOR MENIERES, LEFT THUMB SURGERY, hiatal hernia repair, abdominal ventral hernia repair. Past Anesthesia/Blood Transfusion Reactions: Motion Sickness, Postoperative Nausea & Vomiting (PONV) Additional Past Anesthesia/Blood Transfusion Reaction / Comment(s): MENIERE'S, STATES "JAW LOCKED UP AFTER PREVIOUS INTUBATION". Past Psychological History: Depression Additional Psychological History / Comment(s): Pt lives alone in her apt is independant uses no assistive devices. She drives a car. 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 Smoking Status: Former smoker Past Alcohol Use History: None Reported Additional Past Alcohol Use History / Comment(s): Smoked x 5 years off and on less then a ppd, quit 30 years ago. Past Drug Use History: None Reported - Past Family History Brother(s) Family Medical History: Cancer Mother Family Medical History: Cancer, CVA/TIA, Diabetes Mellitus, Deep Vein Thrombosis (DVT) Additional Family Medical History / Comment(s): STOMACH CANCER Father Family Medical History: No Reported History Additional Family Medical History / Comment(s): COMMITTED SUICIDE Medications and Allergies Home Medications Medication Instructions Recorded Confirmed Type Gabapentin [Neurontin] 300 mg PO HS 01/23/14 07/27/18 History Omeprazole 40 mg PO QAM 01/23/14 07/27/18 History HYDROcodone/APAP 10-325MG [[place] 1 tab PO Q8H PRN 09/03/14 07/27/18 History 10-325] Cholecalciferol [Vitamin D3] 5,000 unit PO DAILY 05/07/15 07/27/18 History Ezetimibe [Zetia] 10 mg PO DAILY 01/18/18 07/27/18 History Furosemide [Lasix] 40 mg PO DAILY 01/18/18 07/27/18 History Gabapentin [Neurontin] 200 mg PO QAM 01/18/18 07/27/18 History Losartan [Cozaar] 25 mg PO QAM 01/18/18 07/27/18 History Nortriptyline HCl [Pamelor] 25 mg PO HS 01/18/18 07/27/18 History Triamterene/Hydrochlorothiazid 1 cap PO QAM 01/18/18 07/27/18 History [Dyazide 37.5-25 Capsule] rOPINIRole HCL [Requip] 4 mg PO HS 01/18/18 07/27/18 History Evolocumab [Repatha Syringe] 140 mg SQ Q14D 07/05/18 07/27/18 History sitaGLIPtin PHOSPHATE [Januvia] 100 mg PO DAILY 07/05/18 07/27/18 History Allergies Allergy/AdvReac Type Severity Reaction Status Date / Time Penicillins Allergy Rash/Hives Verified 07/11/18 10:37 Uiekvfi-Pis-Gtg Reductase Allergy Rash/Hives Verified 07/11/18 10:37 Inhibitor Milk Containing Products AdvReac Nausea Verified 07/11/18 10:37 [Dairy] Surgical - Exam Vital Signs Temp Pulse Resp BP Pulse Ox 98.0 F 96 18 146/82 99 07/27/18 07:56 07/27/18 07:56 07/27/18 07:56 07/27/18 07:56 07/27/18 07:56 BMI 31.1 - General obese - Eyes normal ocular movement - ENT no hearing loss, no congestion - Neck no masses, trachea midline - Respiratory normal respiratory effort, clear to auscultation - Cardiovascular Rhythm: regular Heart Sounds: normal: S1, S2 - Abdomen Abdomen: soft - Integumentary normal turger - Musculoskeletal normal gait, normal posture - Psychiatric oriented to time, oriented to person, oriented to place, speech is normal, memory intact Breast examination: Right breast: Multi-positional exam no dominant masses or nodules of concern, well-healed scar from recent surgery Right axilla: No adenopathy of concern Left breast: Multi-positional exam 12:00 region approximately 8 mm to 1 cm firm nodule which is new, for which recent FNA was performed Left axilla: No adenopathy of concern Results Pathology results reviewed Assessment and Plan Assessment: Impression: 1. Palpable abnormality right breast biopsied which was fat necrosis 2. Osteoarthritis 3. Hypertension 4. Prior colon resection for diverticular disease 5. High cholesterol 6. Diabetes 7. Back pain 8. History of pancreatitis 9. History of depression in the past 10. New nodule in the left breast FNA showing atypia Plan: 1. Surgical excision of the area with atypia in the left breast 2. Medical management of medical conditions I discussed with the patient the possibility of core biopsy of the area in the left breast to rule out a malignancy which would change operative intervention however the patient states that as this needs to be excised irregardless secondary to the atypia she does not want a core biopsy wishes to proceed with surgical excision. She understands that this could necessitate further treatment of the axilla if this were to be a cancer but at this time she is not wanting any further core biopsy or other biopsy to be performed. She just wishes this to be excised in the operating room. She understands risks and benefits of the procedure and wishes to proceed. This will be scheduled in the near future. Again this is a new nodule which was not present on her initial evaluation, FNA of this area did reveal atypia. Cc: DR. Hernandez
== END ==
LOC: WWCWWP 07:53
PROVIDERS: ATTEND Surgery
DX: Z53.9 Procedure and treatment not carried out, unspecified reason (principal)

== ENCOUNTER 2018-08-07 10:27 | Day surgery (SDC) | payer MEDICARE ==
[2018-08-03 11:13] VITALS: BMI 30.9
[~2018-08-07 10:27] MED LIST changes: -HEPARIN SODIUM,PORCINE 5,000 UNIT/ML 1 ML VIAL SQ ONE; +MIDAZOLAM (PF) 2 MG/2 ML VIAL IV PRN; -MIDAZOLAM 2 MG/2 ML VIAL IV PRN; -Pre Op ABX Message 1 EACH MISC MISCELLANE ONE; +ceFAZolin IN SWFI 2 GM/20 ML SYRINGE IVP ONE
[2018-08-07 11:12] VITALS: TEMP 98.3
[2018-08-07] MEDS ORDERED: LIDOCAINE 1% INJ 10MG/ML (20 ML MDV) SQ ONE ×2 (12:04→13:22)
[2018-08-07] MEDS ORDERED: HEPARIN SODIUM,PORCINE 5,000 UNIT/ML 1 ML VIAL SQ ONE (12:21)
[2018-08-07] MEDS ORDERED: PROPOFOL 10 MG/ML 20 ML VIAL IV ONE (12:47)
[2018-08-07] MEDS ORDERED: KETAMINE 10 MG/ML 20 ML VIAL ONE (12:47)
[2018-08-07] MEDS ORDERED: fentaNYL (PF) 50 MCG/ML 2 ML AMP ONE (12:47)
[2018-08-07] MEDS ORDERED: MIDAZOLAM 2 MG/2 ML VIAL ONE (12:47)
[2018-08-07] MEDS ORDERED: LIDOCAINE 1% INJ 10MG/ML (20 ML MDV) ONE (12:47)
--- NOTE | 2018-08-07 13:36 | P.OP ---
Date of Procedure: 08/07/18 Preoperative Diagnosis: Mass left breast with cytologic atypia Postoperative Diagnosis: Same Procedure(s) Performed: Excision lesion left breast Anesthesia: MAC Surgeon: Christine Reese Estimated Blood Loss (ml): 5 IV fluids (ml): 300 Pathology: other (Breast tissue) Condition: stable Disposition: PACU Indications for Procedure: Palpable mass left breast with cytologic atypia on FNA Operative Findings: Mass left breast Description of Procedure: The patient was taken to the operating room and following sedation the left breast was prepped and draped in a sterile fashion. One percent lidocaine was used to anesthetize the area of concern. Incision was carried down to palpable abnormality which was excised. After assured that hemostasis was attained this deep tissues were closed with 3-0 Vicryl suture. This followed by closure of the skin with a 4-0 Monocryl. The specimen was painted for orientation and sent to pathology. The patient tolerated the procedure in stable condition. All instrument and sponge counts were correct at the end of the case.
--- NOTE | 2018-08-07 13:37 | P.DS ---
Providers Attending physician: Christine Reese Primary care physician: Damir Hernandez Plan - Discharge Summary New Discharge Prescriptions: No Action Omeprazole 40 mg PO QAM Gabapentin [Neurontin] 300 mg PO HS HYDROcodone/APAP 10-325MG [[place] 10-325] 1 tab PO Q8H PRN PRN Reason: Pain Cholecalciferol [Vitamin D3] 5,000 unit PO DAILY rOPINIRole HCL [Requip] 4 mg PO HS Nortriptyline HCl [Pamelor] 25 mg PO HS Gabapentin [Neurontin] 200 mg PO QAM Ezetimibe [Zetia] 10 mg PO DAILY Triamterene/Hydrochlorothiazid [Dyazide 37.5-25 Capsule] 1 cap PO QAM Losartan [Cozaar] 25 mg PO QAM sitaGLIPtin PHOSPHATE [Januvia] 100 mg PO DAILY Evolocumab [Repatha Syringe] 140 mg SQ Q14D Furosemide [Lasix] 20 mg PO DAILY Discharge Medication List Gabapentin [Neurontin] 300 mg PO HS 01/23/14 [History] Omeprazole 40 mg PO QAM 01/23/14 [History] HYDROcodone/APAP 10-325MG [[place] 10-325] 1 tab PO Q8H PRN 09/03/14 [History] Cholecalciferol [Vitamin D3] 5,000 unit PO DAILY 05/07/15 [History] Ezetimibe [Zetia] 10 mg PO DAILY 01/18/18 [History] Gabapentin [Neurontin] 200 mg PO QAM 01/18/18 [History] Losartan [Cozaar] 25 mg PO QAM 01/18/18 [History] Nortriptyline HCl [Pamelor] 25 mg PO HS 01/18/18 [History] Triamterene/Hydrochlorothiazid [Dyazide 37.5-25 Capsule] 1 cap PO QAM 01/18/18 [ History] rOPINIRole HCL [Requip] 4 mg PO HS 01/18/18 [History] Evolocumab [Repatha Syringe] 140 mg SQ Q14D 07/05/18 [History] sitaGLIPtin PHOSPHATE [Januvia] 100 mg PO DAILY 07/05/18 [History] Furosemide [Lasix] 20 mg PO DAILY 08/03/18 [History] Follow up Appointment(s)/Referral(s): Christine Reese MD [STAFF PHYSICIAN] - 2 Weeks Activity/Diet/Wound Care/Special Instructions: Do not drive today Wear bra until seen by Dr. Nathaniel Weienr showwilfrido after 48 hours Discharge Disposition: HOME SELF-CARE
[2018-08-07 14:13] VITALS: BP 156/90; PULSE 89; RESP 16
== END 2018-08-07 14:22 | disposition home or self-care (01) ==
LOC: OR 10:27
PROVIDERS: ATTEND Surgery
DX: N64.1 Fat necrosis of breast (principal); I10 Essential (primary) hypertension; E66.9 Obesity, unspecified; Z68.31 Body mass index [BMI] 31.0-31.9, adult; I20.9 Angina pectoris, unspecified; K21.9 Gastro-esophageal reflux disease without esophagitis; H81.03 Meniere's disease, bilateral; M19.90 Unspecified osteoarthritis, unspecified site; Z90.49 Acquired absence of other specified parts of digestive tract; E11.40 Type 2 diabetes mellitus with diabetic neuropathy, unspecified; E78.5 Hyperlipidemia, unspecified; F32.9 Major depressive disorder, single episode, unspecified; M54.9 Dorsalgia, unspecified; G25.81 Restless legs syndrome; Z98.890 Other specified postprocedural states; Z87.891 Personal history of nicotine dependence; Z85.038 Personal history of other malignant neoplasm of large intestine; Z80.3 Family history of malignant neoplasm of breast; Z80.1 Family history of malignant neoplasm of trachea, bronchus and lung; Z80.0 Family history of malignant neoplasm of digestive organs; Z79.891 Long term (current) use of opiate analgesic; Z79.84 Long term (current) use of oral hypoglycemic drugs; Z79.899 Other long term (current) drug therapy; Z88.6 Allergy status to analgesic agent; Z88.0 Allergy status to penicillin; Z88.8 Allergy status to other drugs, medicaments and biological substances; Z91.011 Allergy to milk products
CPT/HCPCS: 19120; 88307; J2250; J1100; J2405; J2001; J3010; J2704; J0690; 88305

== ENCOUNTER → 2018-08-23 | Outpatient (CLI) | payer MEDICARE ==
[2018-08-23 15:32] VITALS: BP 145/82; PULSE 88; RESP 18; TEMP 97.8; BMI 31.8
--- NOTE | 2018-08-23 16:01 | P.PN ---
Progress Note - Text Progress Note Date: 08/23/18 Karolina is status post left breast biopsy on [id number]. Pathology reveals nodular fat necrosis. The patient has no complaints. Her incision is clean and dry. Examination: Left breast incision clean and dry Right breast incision clean and dry Impression: Patient status post bilateral breast biopsies both are benign with incisions healing well Plan: 1. Bilateral mammogram in 6 months 2. Physician exam at that time CC: Dr. Hernandez Please include copy of pathology reports
== END | disposition home or self-care (01) ==
LOC: WWCWWP 15:18
PROVIDERS: ATTEND Surgery
DX: Z53.9 Procedure and treatment not carried out, unspecified reason (principal)

== ENCOUNTER → 2018-08-29 | Outpatient (CLI) | payer MEDICARE ==
--- NOTE | 2018-08-29 09:01 | FL ---
EXAMINATION TYPE: FL barium swallow DATE OF EXAM: 08/29/2018 CLINICAL HISTORY: History of Destin fundoplication in 2014. TECHNIQUE: A single contrast esophagram is performed utilizing air and barium. A total of 1 minute and 43 seconds of fluoroscopic time was utilized during procedure. 38 images were saved. COMPARISON: None FINDINGS: The esophagus shows normal abnormal and delayed emptying into the stomach in both the gravi ty dependent and independent positions. Although the patient is status post Destin fundoplication the re is a recurrent moderate hiatal hernia appreciated on supine imaging. Tertiary contractions are see n throughout the examination with distal esophageal smooth tapering short segment stricture. Stasis o f contrast is seen throughout the examination with severe intraesophageal reflux to the level of the upper esophagus. IMPRESSION: Moderate recurrent hiatal hernia and incomplete distal esophageal short segment stricture with smooth margins both resulting in severe intraesophageal reflux and esophageal dysmotility with stasis. Pres byesophagus also likely contributes to the esophageal dysmotility.
== END | disposition home or self-care (01) ==
LOC: RADFLWHC 08:08
PROVIDERS: ATTEND Surgery
DX: K44.9 Diaphragmatic hernia without obstruction or gangrene (principal); K22.2 Esophageal obstruction; K21.9 Gastro-esophageal reflux disease without esophagitis; K22.4 Dyskinesia of esophagus
CPT/HCPCS: 74220

== ENCOUNTER 2018-09-05 07:08 | Day surgery (SDC) | payer MEDICARE ==
[2018-09-03 13:24] VITALS: BMI 31.6
[~2018-09-05 07:08] MED LIST changes: -DEXAMETHASONE SOD PHOSPHATE 10 MG/ML 1 ML VIAL IV ONE; -HYDROmorphone 0.5 MG/0.5 ML SYRINGE IVP PRN; -MIDAZOLAM (PF) 2 MG/2 ML VIAL IV PRN; -ONDANSETRON 4 MG/2 ML VIAL IVP ONE; -SCOPOLAMINE 1.5MG/72HR PATCH TRANSDERM ONE; -ceFAZolin IN SWFI 2 GM/20 ML SYRINGE IVP ONE
[2018-09-05 07:59] VITALS: TEMP 98.9
[2018-09-05 08:28] LABS: Glucose,Whole Blood 99 mg/dL (75-99)
[2018-09-05] MEDS ORDERED: PROPOFOL 10 MG/ML 20 ML VIAL IV ONE (09:11)
--- NOTE | 2018-09-05 09:21 | P.GSHP ---
History of Present Illness H&P Date: 09/05/18 Chief Complaint: GERD This is a 73-year-old female history of GERD. She presents today for EGD. Past Medical History Past Medical History: Chest Pain / Angina, Diabetes Mellitus, Eye Disorder, GERD /Reflux, Hearing Disorder / Deafness, Hyperlipidemia, Hypertension, Musculoskeletal Disorder, Osteoarthritis (OA), Pneumonia Additional Past Medical History / Comment(s): Intestinal adhesions, RESTLESS LEG , Hiatal HERNIA, MENIERES, DIVERTICULITIS, GLAUCOMA R eye, (NOT CURRENTLY ON ANY MEDICATIONS FOR) NEUROPATHY bilateral legs, hx anemia. Irregular heartbeat. Degenerative Disc Disease. Difficulty hearing certain tones. History of Any Multi-Drug Resistant Organisms: None Reported Past Surgical History: Appendectomy, Bladder Surgery, Bowel Resection, Cholecystectomy, Ear Surgery, Heart Catheterization, Hernia Repair, Hysterectomy , Joint Replacement, Orthopedic Surgery, Tonsillectomy, Tubal Ligation Additional Past Surgical History / Comment(s): LUBNA BREAST BX, Diagnostic laparoscopy with lysis of adhesions. LUBNA KNEE REPLACEMENT, EYE surgery for cataracts bilaterally with lens implants, TUBE IN RIGHT EAR FOR MENIERES, LEFT THUMB SURGERY, hiatal hernia repair, abdominal ventral hernia repair. LT FOOT PLANTAR FASCITIS SX Past Anesthesia/Blood Transfusion Reactions: Motion Sickness, Postoperative Nausea & Vomiting (PONV) Additional Past Anesthesia/Blood Transfusion Reaction / Comment(s): MENIERE'S, STATES "JAW LOCKED UP AFTER PREVIOUS INTUBATION" HAS HAD HOARSENESS SINCE ANESTHESIA Smoking Status: Former smoker - Past Family History Brother(s) Family Medical History: Cancer Mother Family Medical History: Cancer, CVA/TIA, Diabetes Mellitus, Deep Vein Thrombosis (DVT) Additional Family Medical History / Comment(s): STOMACH CANCER Father Family Medical History: No Reported History Additional Family Medical History / Comment(s): COMMITTED SUICIDE Medications and Allergies Home Medications Medication Instructions Recorded Confirmed Type Gabapentin [Neurontin] 300 mg PO HS 01/23/14 09/03/18 History Omeprazole 40 mg PO QAM 01/23/14 09/03/18 History HYDROcodone/APAP 10-325MG [[place] 1 tab PO Q8H PRN 09/03/14 09/05/18 History 10-325] Cholecalciferol [Vitamin D3] 5,000 unit PO DAILY 05/07/15 09/03/18 History Ezetimibe [Zetia] 10 mg PO DAILY 01/18/18 09/03/18 History Gabapentin [Neurontin] 200 mg PO QAM 01/18/18 09/03/18 History Losartan [Cozaar] 25 mg PO QAM 01/18/18 09/03/18 History Nortriptyline HCl [Pamelor] 25 mg PO HS 01/18/18 09/03/18 History Triamterene/Hydrochlorothiazid 1 cap PO QAM 01/18/18 09/03/18 History [Dyazide 37.5-25 Capsule] rOPINIRole HCL [Requip] 4 mg PO HS 01/18/18 09/03/18 History Evolocumab [Repatha Syringe] 140 mg SQ Q14D 07/05/18 09/05/18 History sitaGLIPtin PHOSPHATE [Januvia] 100 mg PO DAILY 07/05/18 09/05/18 History Furosemide [Lasix] 20 mg PO DAILY 08/03/18 09/05/18 History Allergies Allergy/AdvReac Type Severity Reaction Status Date / Time Penicillins Allergy Rash/Hives Verified 09/03/18 13:21 Tcgehtf-Ezc-Haz Reductase Allergy Rash/Hives Verified 09/03/18 13:21 Inhibitor aspirin AdvReac STOMACH Verified 09/03/18 13:21 UPSET/HEARTBURN Milk Containing Products AdvReac Nausea Verified 09/03/18 13:21 [Dairy] STERI STRIP Allergy Rash/Hives/ Uncoded 09/03/18 13:24 ITCHING Surgical - Exam Vital Signs Temp Pulse Resp BP Pulse Ox 98.9 F 87 18 159/87 97 09/05/18 07:58 09/05/18 07:58 09/05/18 07:58 09/05/18 07:58 09/05/18 07:58 - General well developed, no distress - Eyes PERRL - ENT normal pinna - Neck no masses - Respiratory normal expansion - Cardiovascular Rhythm: regular - Abdomen Abdomen: soft, non tender Assessment and Plan Assessment: GERD. We'll perform EGD.
--- NOTE | 2018-09-05 09:36 | P.OP ---
Date of Procedure: 09/05/18 Preoperative Diagnosis: GERD Dysphagia Postoperative Diagnosis: Antral gastritis Recurrent hiatal hernia GE junction stricture Procedure(s) Performed: EGD with biopsy of antrum EGD with balloon dilatation of GE junction stricture Anesthesia: MAC Surgeon: Bonifacio Squires Pathology: other (Antrum) Condition: stable Disposition: PACU Description of Procedure: The patient's placed on the endoscopy table in the lateral position. She received IV sedation. The gastroscope placed oropharynx passed in the esophagus and into the stomach. Scope was then placed through the pylorus. The first and second portion of the duodenum appeared normal. Scope was then retroflexed and the remainder some appeared normal. The patient had a recurrent hiatal hernia. There is evidence of a stricture of the GE junction. The GE junction was quite tight around the scope. At this point a 20 mm balloon was placed across the GE junction. Sequential dilations of the stricture there is no evidence of any injury to the stomach or esophagus. After the balloon was withdrawn. The GE junction appeared to be looser around the scope. The proximal esophagus appeared normal. Scope withdrawn for patient.
[2018-09-05 09:46] VITALS: RESP 16
[2018-09-05 10:06] VITALS: BP 150/79; PULSE 76
== END 2018-09-05 10:18 | disposition home or self-care (01) ==
LOC: ORWHC2ENDO 07:08
PROVIDERS: ATTEND Surgery
DX: K21.9 Gastro-esophageal reflux disease without esophagitis (principal); K29.50 Unspecified chronic gastritis without bleeding; K44.9 Diaphragmatic hernia without obstruction or gangrene; I10 Essential (primary) hypertension; E11.42 Type 2 diabetes mellitus with diabetic polyneuropathy; I20.9 Angina pectoris, unspecified; E78.5 Hyperlipidemia, unspecified; M79.9 Soft tissue disorder, unspecified; M19.90 Unspecified osteoarthritis, unspecified site; G25.81 Restless legs syndrome; H81.09 Meniere's disease, unspecified ear; H40.9 Unspecified glaucoma; Z87.891 Personal history of nicotine dependence; Z79.899 Other long term (current) drug therapy; Z88.6 Allergy status to analgesic agent; Z91.011 Allergy to milk products; Z88.0 Allergy status to penicillin; Z88.8 Allergy status to other drugs, medicaments and biological substances; Z91.09 Other allergy status, other than to drugs and biological substances
CPT/HCPCS: 88305; 43239; 43249; J2704; C1726

== ENCOUNTER → 2018-09-12 | Outpatient (CLI) | payer MEDICARE ==
[2018-09-12 18:11] LABS: C Reactive Protein 0.6 mg/dL (0.0-0.8)
[2018-09-12 18:20] LABS: T4, Free (Free Thyroxine) 1.2 ng/dL (0.80-1.80)
[2018-09-12 18:24] LABS: Thyroid Peroxidase Antibodies <28.0 U/mL (0.0-60.0)
[2018-09-13 14:05] LABS: C-ANCA <1:20 Titer (<1:20); P-ANCA <1:20 Titer (<1:20)
== END | disposition home or self-care (01) ==
LOC: LABWHC1 10:18
PROVIDERS: ATTEND Otolaryngology
DX: E03.9 Hypothyroidism, unspecified (principal); E07.89 Other specified disorders of thyroid
CPT/HCPCS: 36415; 84439; 84443; 86038; 86140; 86255; 86376

== ENCOUNTER 2018-10-08 06:38 | Day surgery (SDC) | payer MEDICARE ==
[2018-10-04 15:46] VITALS: BMI 31.6
[~2018-10-08 06:38] MED LIST changes: +MIDAZOLAM (PF) 2 MG/2 ML VIAL IV PRN
[2018-10-08 07:22] VITALS: TEMP 98.2
[2018-10-08 07:24] LABS: Glucose,Whole Blood 120 mg/dL (75-99)
[2018-10-08] MEDS ORDERED: LACTATED RINGERS 1,000 ML IV ONE ×2 (07:32)
[2018-10-08] MEDS ORDERED: LIDOCAINE 1% INJ 10MG/ML (20 ML MDV) ONE (07:44)
[2018-10-08] MEDS ORDERED: PROPOFOL 10 MG/ML 20 ML VIAL IV ONE (07:44)
--- NOTE | 2018-10-08 07:53 | P.GSHP ---
History of Present Illness H&P Date: 10/08/18 Chief Complaint: GERD, dysphagia This a 73-year-old female who is also recurrent hiatal hernia. Patient has safer EGD with balloon dilatation. She's had issues with GERD and dysphagia. She is known to have a stricture of the GE junction. Patient's aware the risk of esophageal injury from balloon dilatation. Past Medical History Past Medical History: Cancer, Chest Pain / Angina, Diabetes Mellitus, Eye Disorder, Fibromyalgia, GERD/Reflux, Hearing Disorder / Deafness, Hyperlipidemia , Hypertension, Osteoarthritis (OA), Pneumonia Additional Past Medical History / Comment(s): Intestinal adhesions, RESTLESS LEG , Hiatal HERNIA, MENIERES, DIVERTICULITIS, GLAUCOMA R eye, (NOT CURRENTLY ON ANY MEDICATIONS FOR) NEUROPATHY bilateral legs, hx anemia. Irregular heartbeat. Degenerative Disc Disease. Difficulty hearing certain tones. gout, skin cancer History of Any Multi-Drug Resistant Organisms: None Reported Past Surgical History: Appendectomy, Bladder Surgery, Bowel Resection, Cholecystectomy, Ear Surgery, Heart Catheterization, Hernia Repair, Hysterectomy , Joint Replacement, Orthopedic Surgery, Tonsillectomy, Tubal Ligation Additional Past Surgical History / Comment(s): RIGHT BREAST BX, Diagnostic laparoscopy with lysis of adhesions. LUBNA KNEE REPLACEMENT, EYE surgery for cataracts bilaterally with lens implants, TUBE IN RIGHT EAR FOR MENIERES, LEFT THUMB SURGERY, hiatal hernia repair, abdominal ventral hernia repair. Past Anesthesia/Blood Transfusion Reactions: Motion Sickness, Postoperative Nausea & Vomiting (PONV) Additional Past Anesthesia/Blood Transfusion Reaction / Comment(s): MENIERAnton'S, STATES "DIFF INTUBATION-JAW LOCKED UP AFTER PREVIOUS INTUBATION". "scraped vocal cord (now has ulcer on vocal cord) from intubation-seeing Dr Smart Smoking Status: Former smoker - Past Family History Brother(s) Family Medical History: Cancer Mother Family Medical History: Cancer, CVA/TIA, Deep Vein Thrombosis (DVT) Additional Family Medical History / Comment(s): STOMACH CANCER Father Family Medical History: No Reported History Additional Family Medical History / Comment(s): COMMITTED SUICIDE Medications and Allergies Home Medications Medication Instructions Recorded Confirmed Type Gabapentin [Neurontin] 300 mg PO HS 01/23/14 10/08/18 History Omeprazole 40 mg PO QAM 01/23/14 10/08/18 History HYDROcodone/APAP 10-325MG [[place] 1 tab PO Q8H PRN 09/03/14 10/08/18 History 10-325] Cholecalciferol [Vitamin D3] 5,000 unit PO DAILY 05/07/15 10/04/18 History Ezetimibe [Zetia] 10 mg PO DAILY 01/18/18 10/04/18 History Gabapentin [Neurontin] 200 mg PO QAM 01/18/18 10/08/18 History Losartan [Cozaar] 25 mg PO QAM 01/18/18 10/08/18 History Nortriptyline HCl [Pamelor] 25 mg PO HS 01/18/18 10/08/18 History Triamterene/Hydrochlorothiazid 1 cap PO QAM 01/18/18 10/08/18 History [Dyazide 37.5-25 Capsule] rOPINIRole HCL [Requip] 4 mg PO HS 01/18/18 10/08/18 History sitaGLIPtin PHOSPHATE [Januvia] 100 mg PO DAILY 07/05/18 10/08/18 History Furosemide [Lasix] 20 mg PO DAILY 08/03/18 10/04/18 History Allergies Allergy/AdvReac Type Severity Reaction Status Date / Time Penicillins Allergy Rash/Hives Verified 10/08/18 07:09 Sknbkct-Xsf-Npa Reductase Allergy Rash/Hives Verified 10/08/18 07:09 Inhibitor aspirin AdvReac STOMACH Verified 10/08/18 07:09 UPSET/HEARTBURN Milk Containing Products AdvReac Nausea Verified 10/08/18 07:09 [Dairy] STERI STRIP Allergy Rash/Hives/ Uncoded 10/04/18 15:34 ITCHING Surgical - Exam Vital Signs Temp Pulse Resp BP Pulse Ox 98.2 F 99 17 165/82 94 L 10/08/18 07:20 10/08/18 07:20 10/08/18 07:20 10/08/18 07:20 10/08/18 07:20 - General well developed, well nourished, no distress - Eyes PERRL - ENT normal pinna - Neck no masses - Respiratory normal expansion - Cardiovascular Rhythm: regular - Abdomen Abdomen: soft, non tender Results - Labs Abnormal Lab Results - Last 24 Hours (Table) 10/08/18 Range/Units 07:17 POC Glucose (mg/dL) 120 H (75-99) mg/dL Assessment and Plan Assessment: GERD, dysphagia. We'll perform EGD with balloon dilatation.
--- NOTE | 2018-10-08 08:10 | P.OP ---
Date of Procedure: 10/08/18 Preoperative Diagnosis: GERD Dysphagia Postoperative Diagnosis: GERD, dysphagia Esophageal stricture at GE junction Recurrent hiatal hernia Procedure(s) Performed: EGD Anesthesia: MAC Surgeon: Bonifacio Squires Pathology: none sent Condition: stable Disposition: PACU Description of Procedure: The patient's placed on the endoscopy table in the lateral position. She received IV sedation. The gastroscope placed oropharynx passed in the esophagus and into the stomach. Scope was then placed through the pylorus. The scope was then placed into the duodenum. First and portion duodenum appeared normal. Scope summer back the antrum this. Minimally inflamed. There is no significant ulceration or gastritis. The scope was unretroflexed there was a recurrent hiatal hernia. The previous stricture of the GE junction. This point the scope was brought back and a balloon dilator was placed through the scope and position of the GE junction. The balloon dilator was inflated up to 18 mm. There is no evidence of injury to the esophagus. The dilator was withdrawn. The GE junction was examined. There is no evidence of any injury. Scope was then withdrawn.
[2018-10-08 08:28] VITALS: BP 138/82; PULSE 93; RESP 16
== END 2018-10-08 08:45 | disposition home or self-care (01) ==
LOC: ORWHC2ENDO 06:38
PROVIDERS: ATTEND Surgery
DX: K22.2 Esophageal obstruction (principal); K44.9 Diaphragmatic hernia without obstruction or gangrene; E11.42 Type 2 diabetes mellitus with diabetic polyneuropathy; M79.7 Fibromyalgia; H81.09 Meniere's disease, unspecified ear; E78.5 Hyperlipidemia, unspecified; K21.9 Gastro-esophageal reflux disease without esophagitis; I10 Essential (primary) hypertension; M19.90 Unspecified osteoarthritis, unspecified site; G25.81 Restless legs syndrome; Z85.828 Personal history of other malignant neoplasm of skin; H40.9 Unspecified glaucoma; Z87.891 Personal history of nicotine dependence; Z80.0 Family history of malignant neoplasm of digestive organs; Z79.84 Long term (current) use of oral hypoglycemic drugs; Z79.899 Other long term (current) drug therapy; Z88.6 Allergy status to analgesic agent; Z91.011 Allergy to milk products; Z88.0 Allergy status to penicillin; Z88.8 Allergy status to other drugs, medicaments and biological substances; Z91.09 Other allergy status, other than to drugs and biological substances
CPT/HCPCS: 43249; J2001; J2704; C1726

== ENCOUNTER → 2018-10-15 | Outpatient (CLI) | payer MEDICARE ==
--- NOTE | 2018-10-15 08:23 | CT ---
EXAMINATION TYPE: CT sinus wo con DATE OF EXAM: 10/15/2018 COMPARISON: NONE HISTORY: Difficulty breathing and recurrent sinus infections per patient. Chronic sinusitis per order CT DLP: 544 mGycm. Automated Exposure Control for Dose Reduction was Utilized. TECHNIQUE: CT scan of the sinuses is performed without contrast, axial images are obtained, coronal r eformatted images are also reviewed. FINDINGS: The paranasal sinuses including the frontal, ethmoid, sphenoid, and maxillary sinuses bila terally are well-aerated without abnormal opacification. The ostiomeatal complex is patent bilateral ly on the coronal images. Visualized portion of mastoid air cells show no abnormal opacification. Patchy soft tissue density ri ght external auditory canal is felt to reflect cerumen . The globes are intact bilaterally. IMPRESSION: The sinuses are clear and the ostiomeatal complex is patent bilaterally.
== END | disposition home or self-care (01) ==
LOC: RADCTMAIN 07:34
PROVIDERS: ATTEND Otolaryngology
DX: J32.9 Chronic sinusitis, unspecified (principal); Z88.0 Allergy status to penicillin; Z88.8 Allergy status to other drugs, medicaments and biological substances
CPT/HCPCS: 70486

== ENCOUNTER → 2018-10-29 | Outpatient (CLI) | payer MEDICARE ==
--- NOTE | 2018-10-29 10:58 | FL ---
EXAMINATION TYPE: FL barium swallow DATE OF EXAM: 10/29/2018 LIMITED UGI-ESOPHAGRAM: CLINICAL HISTORY: History of Luis fundoplication surgery roughly 3-4 years ago with GERD per order . Recurrent symptoms of pain, had recent scope with dilatation in the last few months per patient. TECHNIQUE: Limited esophagram is performed utilizing 20 oz of contrast. A total of 39 seconds of flu oroscopic time was utilized during procedure. 58 spot images are saved to PACS. FINDINGS: The patient swallowed contrast without difficulty or delay. Underlying esophageal dysmotil ity is present as there are abnormal secondary and tertiary contractions identified. There is persist ent mild delay in flow of contrast along the diaphragmatic hiatus into the stomach due to short segme nt stricture or narrowing at site of surgery, there is no evidence of contrast extravasation to sugge st leak. Stable small paraesophageal hiatal hernia is seen. Patient remains asymptomatic during study . IMPRESSION: Overall stable findings from prior study as detailed above despite interval dilatation. M ain finding is underlying esophageal dysmotility with poor transient of ingested material through the esophagus noted.
== END | disposition home or self-care (01) ==
LOC: RADFLWHC 09:11
PROVIDERS: ATTEND Surgery
DX: K22.4 Dyskinesia of esophagus (principal)
CPT/HCPCS: 74220

== ENCOUNTER 2018-11-01 07:47 | Day surgery (SDC) | payer MEDICARE ==
[2018-10-29 15:36] VITALS: BMI 32.2
[~2018-11-01 07:47] MED LIST changes: +CLINDAMYCIN 600 MG in DEXTROSE 5% IN WATER 50 ML IVPB ONE; +DEXAMETHASONE SOD PHOSPHATE 10 MG/ML 1 ML VIAL IV ONE; +DEXAMETHASONE SOD PHOSPHATE 4 MG/ML 1 ML VIAL IV ONE; +FAMOTIDINE 20 MG/2 ML VIAL IV ONE; +HYDROmorphone 0.5 MG/0.5 ML SYRINGE IVP PRN; -MIDAZOLAM (PF) 2 MG/2 ML VIAL IV PRN; +ONDANSETRON 4 MG/2 ML VIAL IVP ONE
[2018-11-01] MEDS: OXYMETAZOLINE 0.05% NASL SPRAY 1 SPRAY BOTTLE NASAL ONE ×5 (08:19→08:48)
[2018-11-01 08:35] LABS: Glucose,Whole Blood 108 mg/dL (75-99)
[2018-11-01] MEDS ORDERED: fentaNYL (PF) 50 MCG/ML 2 ML AMP ONE (09:43)
[2018-11-01] MEDS ORDERED: MIDAZOLAM 2 MG/2 ML VIAL ONE (09:43)
[2018-11-01] MEDS ORDERED: PROPOFOL 10 MG/ML 20 ML VIAL IV ONE (09:43)
[2018-11-01] MEDS ORDERED: SUCCINYLCHOLINE CHLORIDE 100 MG/5 ML SYR IV ONE (09:43)
[2018-11-01] MEDS ORDERED: LIDOCAINE 1% INJ 10MG/ML (20 ML MDV) ONE (09:43)
[2018-11-01] MEDS ORDERED: LIDOCAINE 1%-EPI 1:100,000 20 ML VIAL SQ ONE ×2 (10:03)
[2018-11-01] MEDS ORDERED: EPINEPHrine 1 MG/ML 1 ML AMP IRRIGATION ONE (10:03)
[2018-11-01] MEDS ORDERED: FLUORESCEIN STRIPS 1 MG STRIP MISCELLANE ONE (10:05)
[2018-11-01] MEDS ORDERED: BUPIVACAIN-EPI 0.5%-1:200,000 30 ML VIAL SQ ONE ×2 (10:07)
[2018-11-01] MEDS ORDERED: LACTATED RINGERS 1,000 ML IV ONE (10:48)
[2018-11-01 11:10] VITALS: RESP 16; TEMP 98.3
[2018-11-01 11:10] LABS: Glucose,Whole Blood 217 mg/dL (75-99)
--- NOTE | 2018-11-01 11:42 | P.OP ---
Date of Procedure: 11/01/18 Preoperative Diagnosis: Left vocal cord mass Recurring maxillary and ethmoid sinusitis Deviated nasal septum Chronic sinus symptoms Postoperative Diagnosis: Patient was found to have hoang pus in the maxillary and ethmoid sinuses. Septum was deviated to the left severely. Patient had a large mass on the left vocal cord. Procedure(s) Performed: Direct microscopic laryngoscopy and removal of a left vocal cord mass Bilateral functional endoscopic sinus surgery with total ethmoidectomies and bilateral maxillary antrostomies and exploration of the frontal sinuses. Septoplasty Anesthesia: GETA Surgeon: Hoang Smart Estimated Blood Loss (ml): 15 Pathology: other (Left vocal cord mass and sinonasal tissue) Condition: stable Disposition: PACU Indications for Procedure: This patient has had chronic and recurring sinusitis with long standing sinus symptoms of drainage congestion etc. Patient's been on multiple antibiotics with no long-term improvement and sinus surgery was recommended. Her nasal obstruction and anosmia was also quite problematic and correction of the septal deflection was also recommended. Patient was also found have a left vocal cord mass causing severe hoarseness. Removal for biopsy purposes is recommended. Operative Findings: Patient had a large left vocal cord mass attached to the left midportion of the vocal cord. Patient also had hoang pus in the maxillary and ethmoid sinuses and a severe left septal deviation. Description of Procedure: Preoperatively the patient had her consent reviewed. All risks, benefits, and alternative therapies were discussed and all questions were answered. The patient was informed of the procedure and a confirmatory fashion and was in agreement to proceed forward. In the operating room a timeout was performed and all issues were reviewed with the operating room staff. The patient underwent a general inhalation anesthetic and intubated by the department of anesthesia and also monitored throughout the entire case by the department of anesthesia. A functioning IV line was in place. The patient was positioned in the supine position with slight reverse Trendelenburg. Preoperatively she had Afrin nasal spray. We then injected the septum, lateral nasal wall, turbinates with lidocaine 1% with epinephrine 1 100,000. Approximately 10 minutes were allowed wait for full vasoconstrictive effects to take place. A caudal incision was made over the caudal portion of the left septum down to the mucoperichondrium. A mucoperichondrial flap was developed with use of tunnels inferiorly and superiorly. We identified the deviation and with use of crosshatching incisions and removal of some redundant strips of septal cartilage, the septum was placed back in the midline in excellent position relieving this patient of this deviated nasal septum. We closed the incision with a 40 rapid Vicryl and a quilting stitch was used to reapproximate the septal flap. The septum was corrected and a swing door type fashion. The septum was sutured fixated to the vomer area and groove with use of a 40 rapid Vicryl. Attention was then paid to the middle turbinates which were brought medial. The uncinate process was visualized and reflected forward with a Dominguez probe. With the use of an endoscope utilizing 0 30 and 90 we perform this procedure and utilize this endoscope on a video camera throughout the entire procedure. This was with use of a Pritchard sallie scope. We then took down the uncinate process with a pediatric backbiter and a microdebrider. After the uncinate process was removed the maxillary sinuses were opened widely with use of a straight boss. We open the maxillary sinuses widely and into the maxillary sinuses with endoscopic visualization. Diseased tissue was removed from the maxillary sinuses bilaterally and the sinuses were opened bilaterally. After the maxillary sinuses were opened and diseased tissue was removed attention was then paid to the ethmoid bulla. From a medial to lateral position we took down the ethmoid bulla. We identified the roof of the maxillary sinus and the inferior attachment of the superior turbinate and then took down the basal lamella and into the posterior ethmoid air cells. We did a total ethmoidectomy with use of an up-biting boss. All ethmoid septations were removed Excellent results were obtained. Diseased tissue was found in the ethmoid sinuses and removed. We then entered the sphenoid sinus underneath the inferior attachment of the superior turbinate. We then entered and inspected the frontal sinuses. The frontal sinus was explored bilaterally. Excellent hemostasis was obtained throughout the entire case . The skull base and orbital salas looked good. We reinspected the sinonasal region and no bleeding was encountered. Xerogel was placed bilaterally. Excellent hemostasis was obtained. This patient was taken to the operative room and placed in the supine position. A tooth and gum guard was placed and a Jako laryngoscope was placed into the [facility] with care to avoid any trauma to the lips teeth gums or tongue. The entire oropharynx and hypopharynx was evaluated. Reevaluated the base of tongue, vallecula, epiglottis, true and false vocal cords, lateral pharynx, postcricoid space, piriform sinuses, etc. etc. This was then placed on suspension on a Lewy and with use of a high-powered microscope examination was performed. A large left-sided vocal cord mass was noted and was removed with biopsy forceps. Excellent results were obtained. Hemostasis was obtained with use of adrenaline cottonoids and pressure. Bleeding stopped spontaneously and all instrumentation was removed. Voice rest was recommended. Patient was taken to postanesthesia recovery in excellent condition.
[2018-11-01] MEDS ORDERED: HYDROcodone/APAP 5-325MG 1 EACH TAB PO ONE (12:55)
[2018-11-01] MEDS ORDERED: hydrALAZINE HCL 20 MG/ML 1 ML VIAL IV ONE (13:20)
[2018-11-01 13:44] VITALS: BP 143/80; PULSE 83
== END 2018-11-01 13:55 | disposition home or self-care (01) ==
LOC: OR 07:47
PROVIDERS: ATTEND Otolaryngology
DX: J38.3 Other diseases of vocal cords (principal); J34.2 Deviated nasal septum; J32.8 Other chronic sinusitis; Z79.899 Other long term (current) drug therapy; K21.9 Gastro-esophageal reflux disease without esophagitis; E11.36 Type 2 diabetes mellitus with diabetic cataract; E11.40 Type 2 diabetes mellitus with diabetic neuropathy, unspecified; I11.0 Hypertensive heart disease with heart failure; I50.9 Heart failure, unspecified; E78.5 Hyperlipidemia, unspecified; E78.00 Pure hypercholesterolemia, unspecified; G25.81 Restless legs syndrome; M19.90 Unspecified osteoarthritis, unspecified site; E66.9 Obesity, unspecified; Z68.32 Body mass index [BMI] 32.0-32.9, adult; Z87.891 Personal history of nicotine dependence; Z80.0 Family history of malignant neoplasm of digestive organs; Z80.1 Family history of malignant neoplasm of trachea, bronchus and lung; Z79.84 Long term (current) use of oral hypoglycemic drugs; Z79.891 Long term (current) use of opiate analgesic; Z79.52 Long term (current) use of systemic steroids; Z91.011 Allergy to milk products; Z88.6 Allergy status to analgesic agent; Z88.0 Allergy status to penicillin; Z91.048 Other nonmedicinal substance allergy status; Z91.09 Other allergy status, other than to drugs and biological substances
CPT/HCPCS: 88305; 31541; 30520; 31267; 31253; J2250; J0171; J0360; J1100; J2405; J2001; J3010; J0330; J2704

== ENCOUNTER 2018-11-22 06:35 | Day surgery (SDC) | payer MEDICARE ==
[2018-11-20 14:55] VITALS: BMI 32.2
[~2018-11-22 06:35] MED LIST changes: -CLINDAMYCIN 600 MG in DEXTROSE 5% IN WATER 50 ML IVPB ONE; -DEXAMETHASONE SOD PHOSPHATE 10 MG/ML 1 ML VIAL IV ONE; -DEXAMETHASONE SOD PHOSPHATE 4 MG/ML 1 ML VIAL IV ONE; -FAMOTIDINE 20 MG/2 ML VIAL IV ONE; -HYDROmorphone 0.5 MG/0.5 ML SYRINGE IVP PRN; -ONDANSETRON 4 MG/2 ML VIAL IVP ONE
[2018-11-22] MEDS ORDERED: LACTATED RINGERS 1,000 ML IV ONE (07:10)
[2018-11-22 07:17] VITALS: TEMP 98.2
[2018-11-22 07:27] LABS: Glucose,Whole Blood 123 mg/dL (75-99)
[2018-11-22] MEDS ORDERED: PROPOFOL 10 MG/ML 20 ML VIAL IV ONE (07:43)
[2018-11-22] MEDS ORDERED: LIDOCAINE 1% INJ 10MG/ML (20 ML MDV) ONE (07:43)
--- NOTE | 2018-11-22 07:48 | P.GSHP ---
History of Present Illness H&P Date: 11/22/18 Chief Complaint: Dysphagia, GERD This a 73-year-old female with a history of a recurrent hiatal hernia. Patient has developed a stricture near the GE junction. Patient rents today for EGD with balloon dilatation of GE junction stricture. Past Medical History Past Medical History: Cancer, Chest Pain / Angina, Diabetes Mellitus, Eye Disorder, Fibromyalgia, GERD/Reflux, Hearing Disorder / Deafness, Hyperlipidemia, Hypertension, Osteoarthritis (OA), Pneumonia Additional Past Medical History / Comment(s): Intestinal adhesions, RESTLESS LEG, Hiatal HERNIA, MENIERES, DIVERTICULITIS, GLAUCOMA R eye, (NOT CURRENTLY ON ANY MEDICATIONS FOR) NEUROPATHY bilateral legs, hx anemia. Irregular heartbeat. Degenerative Disc Disease. Difficulty hearing certain tones. gout, skin cancer History of Any Multi-Drug Resistant Organisms: None Reported Past Surgical History: Appendectomy, Bladder Surgery, Bowel Resection, Cholecystectomy, Ear Surgery, Heart Catheterization, Hernia Repair, Hysterectomy, Joint Replacement, Orthopedic Surgery, Tonsillectomy, Tubal Ligation Additional Past Surgical History / Comment(s): Direct Microlaryngoscopy and removal left vocal cord mass.RIGHT BREAST BX, Diagnostic laparoscopy with lysis of adhesions. LUBNA KNEE REPLACEMENT, EYE surgery for cataracts bilaterally with lens implants, TUBE IN RIGHT EAR FOR MENIERES, LEFT THUMB SURGERY, hiatal hernia repair, abdominal ventral hernia repair. egd-10/08/18 Past Anesthesia/Blood Transfusion Reactions: Motion Sickness, Postoperative Gus sea & Vomiting (PONV) Additional Past Anesthesia/Blood Transfusion Reaction / Comment(s): MENIERE'S, STATES "DIFF INTUBATION-JAW LOCKED UP AFTER A PREVIOUS INTUBATION". "scraped vocal cord-evaluated by Dr Smart" Past Psychological History: No Psychological Hx Reported Smoking Status: Former smoker Past Alcohol Use History: Rare Additional Past Alcohol Use History / Comment(s): Smoked x 5 years off and on less then a ppd, quit 30 years ago. Past Drug Use History: None Reported - Past Family History Brother(s) Family Medical History: Cancer Mother Family Medical History: Cancer, CVA/TIA, Deep Vein Thrombosis (DVT) Additional Family Medical History / Comment(s): STOMACH CANCER Father Family Medical History: No Reported History Additional Family Medical History / Comment(s): COMMITTED SUICIDE Medications and Allergies Home Medications Medication Instructions Recorded Confirmed Type Gabapentin [Neurontin] 300 mg PO HS 06/05/14 04/04/19 History HYDROcodone/APAP 10-325MG [[place] 1 tab PO TID PRN 09/03/14 11/22/18 History 10-325] Cholecalciferol [Vitamin D3] 5,000 unit PO DAILY 05/07/15 11/22/18 History Ezetimibe [Zetia] 10 mg PO DAILY 01/18/18 11/22/18 History Gabapentin [Neurontin] 200 mg PO QAM 01/18/18 11/22/18 History Losartan [Cozaar] 25 mg PO QAM 01/18/18 11/22/18 History Nortriptyline HCl [Pamelor] 25 mg PO HS 01/18/18 11/22/18 History rOPINIRole HCL [Requip] 4 mg PO HS 01/18/18 11/22/18 History sitaGLIPtin PHOSPHATE [Januvia] 100 mg PO DAILY 07/05/18 11/22/18 History Furosemide [Lasix] 20 mg PO DAILY 08/03/18 11/22/18 History Meloxicam [Mobic] 15 mg PO DAILY #10 tab 11/01/18 11/20/18 Rx Evolocumab [Repatha Syringe] 140 mg SQ Q14D 11/17/18 11/22/18 History Fenofibrate [Lofibra] 160 mg PO DAILY 11/17/18 11/22/18 History Allergies Allergy/AdvReac Type Severity Reaction Status Date / Time Penicillins Allergy Rash/Hives Verified 11/22/18 07:17 Gttewpn-Zbe-Kck Reductase Allergy Rash/Hives Verified 11/22/18 07:17 Inhibitor aspirin AdvReac STOMACH Verified 11/22/18 07:17 UPSET/HEARTBURN Milk Containing Products AdvReac Nausea Verified 11/22/18 07:17 [Dairy] STERI STRIP Allergy Rash/Hives/ Uncoded 11/22/18 07:17 ITCHING Surgical - Exam Vital Signs Temp Pulse Resp BP Pulse Ox 98.2 F 101 H 16 155/87 96 11/22/18 07:15 11/22/18 07:15 11/22/18 07:15 11/22/18 07:15 11/22/18 07:15 - General well developed, well nourished, no distress - Eyes PERRL - ENT normal pinna - Neck no masses - Respiratory normal expansion - Cardiovascular Rhythm: regular - Abdomen Abdomen: soft - Genitourinary normal external genitalia - Integumentary no rash Results - Labs Abnormal Lab Results - Last 24 Hours (Table) 11/22/18 Range/Units 07:22 POC Glucose (mg/dL) 123 H (75-99) mg/dL Assessment and Plan Assessment: GERD, dysphagia related to GE junction stricture and recurrent hiatal hernia. Patient will undergo balloon dilatation of stricture.
--- NOTE | 2018-11-22 08:02 | P.OP ---
Date of Procedure: 11/22/18 Preoperative Diagnosis: GERD GE junction stricture Postoperative Diagnosis: GERD GE junction stricture Hiatal hernia Procedure(s) Performed: EGD with balloon dilatation Anesthesia: MAC Surgeon: Bonifacio Squires Pathology: other (Antrum) Condition: stable Disposition: PACU Description of Procedure: The patient's placed on the endoscopy table in the lateral position. She received IV sedation. The gastric was placed oropharynx passed in the esophagus and into the stomach. Scope was placed through the pylorus. The first and second portion of the duodenum appeared normal. The scope was then brought back the antrum and this was mildly inflamed a biopsies performed. The scope was then retroflexed and there was some retained food in the stomach. Patient had a recurrent hiatal hernia. There was a stricture seen near the GE junction. A 20 mm balloon was placed across GE junction and sessile dilatation of stricture was performed. There is no evidence of any injury to the esophagus. Scope was withdrawn. Patient top she will well.
[2018-11-22 08:30] VITALS: BP 153/96; PULSE 88; RESP 18
== END 2018-11-22 08:53 | disposition home or self-care (01) ==
LOC: ORWHC2ENDO 06:35
PROVIDERS: ATTEND Surgery
DX: K22.2 Esophageal obstruction (principal); K29.50 Unspecified chronic gastritis without bleeding; K44.9 Diaphragmatic hernia without obstruction or gangrene; M79.7 Fibromyalgia; K21.9 Gastro-esophageal reflux disease without esophagitis; E78.5 Hyperlipidemia, unspecified; I10 Essential (primary) hypertension; M19.90 Unspecified osteoarthritis, unspecified site; Z87.01 Personal history of pneumonia (recurrent); H81.09 Meniere's disease, unspecified ear; E11.42 Type 2 diabetes mellitus with diabetic polyneuropathy; G25.81 Restless legs syndrome; Z79.84 Long term (current) use of oral hypoglycemic drugs; Z79.1 Long term (current) use of non-steroidal anti-inflammatories (NSAID); Z79.899 Other long term (current) drug therapy; Z88.6 Allergy status to analgesic agent; Z91.011 Allergy to milk products; Z88.0 Allergy status to penicillin; Z88.8 Allergy status to other drugs, medicaments and biological substances; Z91.09 Other allergy status, other than to drugs and biological substances
CPT/HCPCS: 88305; 43239; 43249; J2001; J2704; C1726

== ENCOUNTER → 2019-02-04 | Outpatient (CLI) | payer MEDICARE ==
--- NOTE | 2019-02-04 13:12 | MM ---
Reason for exam: follow-up at short interval from prior study. Last mammogram was performed 10 months ago. History: Patient is postmenopausal. Family history of breast cancer in grandmother. Benign excisional biopsy of the left breast, July 2018. Benign excisional biopsy of the right breast, June 2018. Physical Findings: Nurse Summary: 1cm nodule in the right breast at 11 o'clock (nurse dw). MG 3D Diag Mammo W/Cad LUBNA Bilateral CC and MLO view(s) were taken. Prior study comparison: April 05, 2018, bilateral MG 3d screening mammo w/cad. March 23, 2017, bilateral MG 3d diag mammo w/cad LUBNA. September 10, 2015, bilateral MG 3d screening mammo w/cad. April 23, 2014, bilateral MG screening mammo w CAD. There are scattered fibroglandular densities. Stable lateral asymmetric density. Bilateral superior scar markers. Benign vascular calcifications. Right superior palpable marker. Right medial asymmetric density at 2 o'clock is very superficial and localizes very close to the skin. Nurse reports no cutaneous lesion here. Central fat lucency, possibly small hematoma or fat necrosis. These results were verbally communicated with the patient and result sheet given to the patient on 02/04/19. ASSESSMENT: Incomplete: need additional imaging evaluation, BI-RAD 0 RECOMMENDATION: Ultrasound of the right breast. (palpable and 2 o'clock)
--- NOTE | 2019-02-04 13:15 | USB ---
Reason for exam: additional evaluation requested from abnormal screening. History: Patient is postmenopausal. Family history of breast cancer in grandmother. Benign excisional biopsy of the left breast, July 2018. Benign excisional biopsy of the right breast, June 2018. US Breast Limited RT Right limited breast ultrasound including focal area of concern, retroareolar and axilla demonstrates a 0.8 x 0.4 x 0.9cm cystic lesion at 11 o'clock, at the palpable, benign, a 0.6 x 0.4 x 0.5cm lesion too small to characterize at 1 o'clock, complex versus debris filler cyst, 3 month follow up recommended and a 0.9 x 0.7 x 0.8cm mixed lesion at 2 o'clock, likely hematoma, corresponding to the mammographic finding, 3 month follow up recommended. These results were verbally communicated with the patient and result sheet given to the patient on 02/04/19. ASSESSMENT: Probably benign, BI-RAD 3 RECOMMENDATION: Follow-up diagnostic mammogram and ultrasound of the right breast in 3 months.
== END | disposition home or self-care (01) ==
LOC: RADMAMWWP 10:53
PROVIDERS: ATTEND Surgery
DX: R92.8 Other abnormal and inconclusive findings on diagnostic imaging of breast (principal)
CPT/HCPCS: 77066; 76642; G0279; 77062

== ENCOUNTER → 2019-02-07 | Outpatient (CLI) | payer MEDICARE ==
[2019-02-07 10:21] VITALS: BP 110/69; PULSE 85; RESP 18; TEMP 98; BMI 32.2
--- NOTE | 2019-02-07 10:52 | P.PN ---
Subjective Progress Note Date: 02/07/19 Principal diagnosis: Abnormal mammogram of the right breast The patient is a 73-year-old white female who presents for breast evaluation. She is status post a bilateral mammogram performed [id number]. This revealed scattered fibroglandular densities. Stable lateral asymmetric density. Bilateral superior scar markers. Benign vascular calcifications. Right superior palpable marker. The medial asymmetric density at 2:00 very superficial and localizes close to the skin. And additionally the patient then was recommended to undergo an ultrasound of the right breast. An ultrasound of the right breast she was noted to have 2.8 x 0.9 cm cystic lesion at 11:00 felt to be benign which was palpable, 8.6. 0.5 cm lesion too small to characterize at 1:00 which was a complex versus debris-filled cyst, 3 month follow-up recommended an appointment 9 x 0.8 cm mixed lesion at 2:00 most likely hematoma corresponding to mammographic finding. Three-month follow-up mammogram and ultrasound I recommended of the right breast. The patient states that she feels a little nodularity in the area of the right breast as well. This is close to a spot where she underwent a right breast biopsy approximately 6 months ago. She is status post both right and left breast biopsy in the last 6 months. This patient will benign. That in the right breast revealed fat necrosis. The biopsy in the left breast was done for an FNA revealing some atypical cells that the open biopsy was also benign. Family history: 1. Maternal grandmother: Breast cancer 2. Pelvic: Lung cancer 3. Mother: Questionable colon cancer 4. Paternal grandmother: Colon cancer Past surgical history: 1. Bladder suspension/hysterctomy 2. Bilateral knee replacement 3. Left breast surgery, right breast surgery 4. Partial colon resection diverticulitis 5. Cholecystectomy 6. Appendectomy 7. Foot surgery 8. Hernia repair Medical history: 1. Diabetes 2. Hypertension 3. High cholesterol 4. Depression 5. Back pain 6. obesity Social history: Smoke: Negative Alcohol: Negative Drugs: Negative Review of systems: HEENT: Tinnitus Lungs: Negative Heart: Negative GI: Status post colon resection for diverticular disease : Status post hysterectomy Musculoskeletal: Arthritis Neurologic: Numbness in her legs Skin: Right forearm cancer Psychiatric: Negative Bleeding: Negative ALLERGIES: Seasonal ALLERGIES Objective - Vital Signs Vital signs: Vital Signs Temp 98.0 F 06/20/19 10:18 Pulse 85 02/07/19 10:18 Resp 18 02/07/19 10:18 BP 110/69 02/07/19 10:18 Pulse Ox 99 02/07/19 10:18 Intake & Output 02/06/19 02/07/19 02/07/19 18:59 06:59 18:59 Weight 82.554 kg - Constitutional General appearance: Present: obese - EENT Eyes: Present: EOMI ENT: Present: hearing grossly normal - Neck Neck: Present: normal ROM - Respiratory Respiratory: bilateral: CTA - Cardiovascular Rhythm: regular Heart sounds: normal: S1, S2 - Gastrointestinal General gastrointestinal: Present: soft - Integumentary Integumentary: Present: normal turgor - Musculoskeletal Musculoskeletal: Present: gait normal - Psychiatric Psychiatric: Present: A&O x's 3, appropriate affect, intact judgment & insight - Additional findings Additional findings: breast exam: Right breast: Multi-positional exam fibrocystic changes, the area of the prior biopsy there is approximately 2 cm area of increased nodularity which is denser than the surrounding tissue Right axilla: No adenopathy of concern Left breast: Multi-positional exam no dominant masses or nodules of concern, fibrocystic changes Left axilla: No adenopathy of concern Assessment and Plan Assessment: Impression: 1. Radiographic abnormality right breast 2. Probable change right breast at prior biopsy site 3. Diabetes 4. High cholesterol 5. Depression 6. Back pain 7. Hypertension 8. obesity The patient has been given the option of repeating the ultrasound and mammogram in 3 months, attempted FNA of the area, or poor biopsy of the area. At this time after discussion she has opted for core biopsy of the area with repeat mammogram and ultrasound if this isn't benign in 3 months time. Plan: 1. Core biopsy area of concern in the right breast 2. Right breast mammogram and ultrasound in 3 months 2. Medical management of medical conditions CC: Dr. Gisell Hernandez
== END ==
LOC: WWCWWP 09:45
PROVIDERS: ATTEND Surgery
DX: Z53.9 Procedure and treatment not carried out, unspecified reason (principal)

== ENCOUNTER 2019-02-10 07:08 | Emergency (ER) | payer MEDICARE ==
[2019-02-10] MEDS ORDERED: SODIUM CHLORIDE 0.9% 1,000 ML IV STA (07:20)
[2019-02-10] MEDS ORDERED: FAMOTIDINE 20 MG/2 ML VIAL IV STA (07:20)
--- NOTE | 2019-02-10 07:22 | ED ---
General Adult HPI - General Chief complaint: Abdominal Pain Stated complaint: abd pain,NVD Time Seen by Provider: 02/10/19 07:09 Source: patient, RN notes reviewed Mode of arrival: EMS Limitations: no limitations - History of Present Illness Initial comments: Patient is a pleasant 73-year-old female presenting to the emergency Department with complaints of nausea vomiting. Onset of symptoms was around 1 AM. Patient states she vomited probably at least 10 times. Patient states nausea has resolved by receiving medication through EMS. Patient states he feels much better. Patient states she has had some abdominal cramping that has been intermittent, none at this time. Patient states she may be slightly constipated, last bowel movement was 2 days ago. No diarrhea. No fevers. No chest pain. This is not a chronic problem for her. - Related Data Home Medications Medication Instructions Recorded Confirmed Gabapentin [Neurontin] 300 mg PO HS 01/23/14 02/10/19 HYDROcodone/APAP 10-325MG [[place] 1 tab PO TID PRN 09/03/14 02/10/19 10-325] Ezetimibe [Zetia] 10 mg PO QAM 01/18/18 02/10/19 Gabapentin [Neurontin] 200 mg PO QAM 01/18/18 02/10/19 Losartan [Cozaar] 25 mg PO QAM 01/18/18 02/10/19 Nortriptyline HCl [Pamelor] 25 mg PO HS 01/18/18 02/10/19 rOPINIRole HCL [Requip] 4 mg PO HS 01/18/18 02/10/19 Furosemide [Lasix] 20 mg PO QAM 08/03/18 02/10/19 Evolocumab [Repatha Syringe] 140 mg SQ Q14D 11/17/18 02/10/19 Fenofibrate [Lofibra] 160 mg PO QAM 11/17/18 02/10/19 Previous Rx's Medication Instructions Recorded Ondansetron Odt [Zofran Odt] 4 mg PO Q8HR PRN #10 tab 02/10/19 Allergies Allergy/AdvReac Type Severity Reaction Status Date / Time Penicillins Allergy Rash/Hives Verified 02/10/19 09:12 [id number] Reductase Allergy Rash/Hives Verified 02/10/19 09:12 Inhibitor aspirin AdvReac STOMACH Verified 02/10/19 09:12 UPSET/HEARTBURN Milk Containing Products AdvReac Nausea Verified 02/10/19 09:12 [Dairy] STERI STRIP Allergy Rash/Hives/ Uncoded 02/07/19 10:12 ITCHING Review of Systems ROS Statement: Those systems with pertinent positive or pertinent negative responses have been documented in the HPI. ROS Other: All systems not noted in ROS Statement are negative. Constitutional: Denies: fever Eyes: Denies: eye pain ENT: Denies: ear pain Respiratory: Denies: cough, dyspnea Cardiovascular: Denies: chest pain Endocrine: Denies: fatigue Gastrointestinal: Reports: as per HPI, nausea, vomiting Genitourinary: Denies: dysuria Musculoskeletal: Denies: back pain Skin: Denies: rash Neurological: Denies: weakness Past Medical History Past Medical History: Cancer, Chest Pain / Angina, Diabetes Mellitus, Eye Disorder, Fibromyalgia, GERD/Reflux, Hearing Disorder / Deafness, Hyperlip idemia, Hypertension, Osteoarthritis (OA), Pneumonia Additional Past Medical History / Comment(s): Intestinal adhesions, RESTLESS LEG, Hiatal HERNIA, MENIERES, DIVERTICULITIS, GLAUCOMA R eye, (NOT CURRENTLY ON ANY MEDICATIONS FOR) NEUROPATHY bilateral legs, hx anemia. Irregular heartbeat. Degenerative Disc Disease. Difficulty hearing certain tones. gout, skin cancer History of Any Multi-Drug Resistant Organisms: None Reported Past Surgical History: Appendectomy, Bladder Surgery, Bowel Resection, Cholecystectomy, Ear Surgery, Heart Catheterization, Hernia Repair, Hysterectomy, Joint Replacement, Orthopedic Surgery, Tonsillectomy, Tubal Ligation Additional Past Surgical History / Comment(s): Direct Microlaryngoscopy and removal left vocal cord mass.RIGHT BREAST BX, Diagnostic laparoscopy with lysis of adhesions. LUBNA KNEE REPLACEMENT, EYE surgery for cataracts bilaterally with lens implants, TUBE IN RIGHT EAR FOR MENIERES, LEFT THUMB SURGERY, hiatal hernia repair, abdominal ventral hernia repair. egd-10/08/18 Past Anesthesia/Blood Transfusion Reactions: Motion Sickness, Postoperative Nausea & Vomiting (PONV) Additional Past Anesthesia/Blood Transfusion Reaction / Comment(s): MENIERE'S, STATES "DIFF INTUBATION-JAW LOCKED UP AFTER A PREVIOUS INTUBATION". "scraped vocal cord-evaluated by Dr Smart" Past Psychological History: No Psychological Hx Reported Smoking Status: Former smoker Past Alcohol Use History: Rare Past Drug Use History: None Reported - Past Family History Brother(s) Family Medical History: Cancer Mother Family Medical History: Cancer, CVA/TIA, Deep Vein Thrombosis (DVT) Additional Family Medical History / Comment(s): STOMACH CANCER Father Family Medical History: No Reported History Additional Family Medical History / Comment(s): COMMITTED SUICIDE General Exam Limitations: no limitations General appearance: alert, in no apparent distress Head exam: Present: atraumatic Eye exam: Present: normal appearance, PERRL ENT exam: Present: normal oropharynx Neck exam: Present: normal inspection Respiratory exam: Present: normal lung sounds bilaterally Cardiovascular Exam: Present: regular rate, normal rhythm Expanded Peripheral pulses: 2+: Dorsalis Pedis (R), Dorsalis Pedis (L) GI/Abdominal exam: Present: soft, normal bowel sounds. Absent: distended, tenderness, guarding, rebound, rigid, pulsatile mass Extremities exam: Present: normal inspection. Absent: pedal edema, calf tenderness Neurological exam: Present: alert Psychiatric exam: Present: normal affect, normal mood Skin exam: Present: normal color Course Vital Signs 02/10/19 02/10/19 07:14 09:05 Temperature 98.0 F Pulse Rate 95 90 Respiratory 20 18 Rate Blood Pressure 154/94 154/85 O2 Sat by Pulse 100 99 Oximetry Medical Decision Making - Medical Decision Making Patient reevaluated and resting comfortably in bed. Nausea has improved however not 100% resolved. Patient is able to tolerate fluids in the emergency department and is comfortable with discharge home. - Lab Data Result diagrams: 02/10/19 07:29 02/10/19 07:29 Lab Results 02/10/19 02/10/19 02/10/19 Range/Units 07:29 07:29 09:35 WBC 7.3 (3.8-10.6) k/uL RBC 4.92 (3.80-5.40) m/uL Hgb 13.1 (11.4-16.0) gm/dL Hct 40.4 (34.0-46.0) % MCV 82.2 (80.0-100.0) fL MCH 26.6 (25.0-35.0) pg MCHC 32.3 (31.0-37.0) g/dL RDW 14.6 (11.5-15.5) % Plt Count 199 (150-450) k/uL Neutrophils % 84 % Lymphocytes % 12 % Monocytes % 3 % Eosinophils % 1 % Basophils % 0 % Neutrophils # 6.1 (1.3-7.7) k/uL Lymphocytes # 0.9 L (1.0-4.8) k/uL Monocytes # 0.2 (0-1.0) k/uL Eosinophils # 0.0 (0-0.7) k/uL Basophils # 0.0 (0-0.2) k/uL Sodium 142 (137-145) mmol/L Potassium 3.7 (3.5-5.1) mmol/L Chloride 102 (98-107) mmol/L Carbon Dioxide 28 (22-30) mmol/L Anion Gap 12 mmol/L BUN 20 H (7-17) mg/dL Creatinine 0.93 (0.52-1.04) mg/dL Est GFR (CKD-EPI)AfAm 72 (>60 ml/min/1.73 sqM) Est GFR (CKD-EPI)NonAf 63 (>60 ml/min/1.73 sqM) Glucose 176 H (74-99) mg/dL Calcium 10.2 (8.4-10.2) mg/dL Total Bilirubin 0.6 (0.2-1.3) mg/dL AST 86 H (14-36) U/L ALT 64 H (9-52) U/L Alkaline Phosphatase 96 (38-126) U/L Total Protein 8.3 H (6.3-8.2) g/dL Albumin 5.1 H (3.5-5.0) g/dL Amylase 72 (30-110) U/L Lipase 151 (23-300) U/L Urine Color Yellow Urine Appearance Clear (Clear) Urine pH 7.0 (5.0-8.0) Ur Specific [place] 1.016 (1.001-1.035) Urine Protein 2+ H (Negative) Urine Glucose (UA) Trace H (Negative) Urine Ketones Negative (Negative) Urine Blood Negative (Negative) Urine Nitrite Negative (Negative) Urine Bilirubin Negative (Negative) Urine Urobilinogen <2.0 (<2.0) mg/dL Ur Leukocyte Esterase Negative (Negative) Urine RBC 1 (0-5) /hpf Urine WBC 3 (0-5) /hpf Ur Squamous Epith Cells 1 (0-4) /hpf Urine Mucus Rare H (None) /hpf Disposition Clinical Impression: Nausea and vomiting Disposition: HOME SELF-CARE Condition: Stable Instructions (If sedation given, give patient instructions): Acute Nausea and Vomiting (ED) Additional Instructions: Please do follow-up with your primary care physician in the beginning of the week. Return for fevers, pain, uncontrolled vomiting, worsening symptoms or other concerns. Your prescription has been sent to your pharmacy. Prescriptions: Ondansetron Odt [Zofran Odt] 4 mg PO Q8HR PRN #10 tab PRN Reason: Nausea Is patient prescribed a controlled substance at d/c from ED?: No Referrals: Damir Hernandez DO [Primary Care Provider] - 1-2 days Time of Disposition: 10:18
[2019-02-10 07:49] LABS: Basophils % (A) 0 %; Eosinophils % (A) 1 %; HCT 40.4 % (34.0-46.0); HGB 13.1 gm/dL (11.4-16.0); Lymphocytes # (A) 0.9 k/uL (1.0-4.8); Lymphocytes % (A) 12 %; MCH 26.6 pg (25.0-35.0); MCHC 32.3 g/dL (31.0-37.0); MCV 82.2 fL (80.0-100.0); Mean Platelet Volume 7.6; Monocytes # (A) 0.2 k/uL (0-1.0); Monocytes % (A) 3 %; Neutrophils # (A) 6.1 k/uL (1.3-7.7); Neutrophils % (A) 84 %; Platelet Count 199 k/uL (150-450); RBC 4.92 m/uL (3.80-5.40); RDW 14.6 % (11.5-15.5); WBC 7.3 k/uL (3.8-10.6)
[2019-02-10 07:54] LABS: Albumin 5.1 g/dL (3.5-5.0); Calcium 10.2 mg/dL (8.4-10.2); Potassium 3.7 mmol/L (3.5-5.1); Total Bilirubin 0.6 mg/dL (0.2-1.3); Total Protein 8.3 g/dL (6.3-8.2)
--- NOTE | 2019-02-10 08:13 | XR ---
EXAMINATION TYPE: XR KUB , 2 VIEWS DATE OF EXAM ORDERED: 02/10/2019 HISTORY: abdominal pain. COMPARISON: Previous study dated 01/18/2018. FINDINGS: The lung bases are clear. Within the abdomen, there is evidence of previous ventral hernia repair. There is an previous epigast gem surgery. The abdominal gas pattern is within normal limits. There is no evidence of obstruction or free air. T here are phleboliths within the pelvis. IMPRESSION: NO ACUTE INTRA-ABDOMINAL ABNORMALITY.
[2019-02-10] MEDS ORDERED: ONDANSETRON 4 MG/2 ML VIAL IVP STA (08:52)
[2019-02-10 09:50] LABS: Appearance,Urine Clear (Clear); Bilirubin,Urine Negative (Negative); Blood,Urine Negative (Negative); Color,Urine Yellow; Glucose,Urine (UA) Trace (Negative); Ketones,Urine Negative (Negative); Leukocyte Esterase,Urine Negative (Negative); Mucus,Urine Rare /hpf; Nitrite,Urine Negative (Negative); Protein,Urine 2+ (Negative); RBC,Urine 1 /hpf (0-5); Specific Gravity,Urine 1.016 (1.001-1.035); Squamous Epithelial Cell,Urine 1 /hpf (0-4); Urobilinogen,Urine <2.0 mg/dL (<2.0); WBC,Urine 3 /hpf (0-5)
[2019-02-10] MEDS ORDERED: METOCLOPRAMIDE 5 MG/ML 2 ML VIAL IVP STA (10:04)
[2019-02-10 11:06] VITALS: BP 158/90; PULSE 96; RESP 16; TEMP 98.1
== END 2019-02-10 09:51 | disposition home or self-care (01) ==
LOC: EC 07:08
DX: R11.2 Nausea with vomiting, unspecified (principal); R10.9 Unspecified abdominal pain; E11.40 Type 2 diabetes mellitus with diabetic neuropathy, unspecified; M79.7 Fibromyalgia; K21.9 Gastro-esophageal reflux disease without esophagitis; H91.90 Unspecified hearing loss, unspecified ear; E78.5 Hyperlipidemia, unspecified; I10 Essential (primary) hypertension; M19.90 Unspecified osteoarthritis, unspecified site; D64.9 Anemia, unspecified; M10.9 Gout, unspecified; Z85.828 Personal history of other malignant neoplasm of skin; Z87.891 Personal history of nicotine dependence; G25.81 Restless legs syndrome; Z79.899 Other long term (current) drug therapy; Z88.0 Allergy status to penicillin; Z88.6 Allergy status to analgesic agent; Z88.8 Allergy status to other drugs, medicaments and biological substances; Z91.011 Allergy to milk products; Z91.048 Other nonmedicinal substance allergy status; Z96.653 Presence of artificial knee joint, bilateral; Z90.49 Acquired absence of other specified parts of digestive tract; Z95.818 Presence of other cardiac implants and grafts
CPT/HCPCS: 36415; 80053; 82150; 83690; 85025; 81001; 74018; 99284; 96374; 96375 ×2; 96361 ×3; J2765; J2405

== ENCOUNTER → 2019-02-15 | Outpatient (CLI) | payer MEDICARE ==
[2019-02-15 08:29] VITALS: BP 156/83; PULSE 86; RESP 20; TEMP 98.1; BMI 32.1
--- NOTE | 2019-02-15 08:57 | P.OP ---
Date of Procedure: 02/15/19 Preoperative Diagnosis: mass right breast Postoperative Diagnosis: same Procedure(s) Performed: Core biopsy Anesthesia: local Surgeon: Christine Reese Estimated Blood Loss (ml): 1 Pathology: other (breast tissue) Condition: stable Disposition: same day Indications for Procedure: Mass right breast, palpable Operative Findings: breast tissue Description of Procedure: Karolina is a 73 year old white female with a complaint of a mass in the right breast. Prior biopsy. The area radiographically was felt to be most likely benign and a 3 month repeat mammogram and ultrasound was recommended. The patient was given the option of an core biopsy which she chose to undergo. The patient was thought to the procedure room. Consent was obtained. The right breast was prepped using Betadine. 1% lidocaine was used to anesthetize the area of concern. An 18-gauge Bard core biopsy needle was utilized to obtain 3 samples from the area of increased nodularity. His at 12:00 with a area of prior scar. Prior to introduction of the needle the skin was opened using a 15 blade. Procedure pressure was applied. There was no active bleeding. A sterile dressing was applied. The patient tolerated the procedure in stable condition. The specimen was sent to pathology. CC: Dr. Gisell Hernandez
== END | disposition home or self-care (01) ==
LOC: WWCWWP 08:02
PROVIDERS: ATTEND Surgery
DX: N62 Hypertrophy of breast (principal)
CPT/HCPCS: 88305

== ENCOUNTER → 2019-03-05 | Outpatient (CLI) | payer MEDICARE ==
--- NOTE | 2019-03-05 10:48 | US ---
EXAMINATION TYPE: US liver DATE OF EXAM: 03/05/2019 COMPARISON: CT dated 05/02/2017 CLINICAL HISTORY: R94.5 abnormal results of liver function studies. Takes medication: diuretic, antac id,restless legs, pain; surgeries for hiatal hernia, gallbladder removed. EXAM MEASUREMENTS: Liver Length: 17.0 cm thought to be underestimated Gallbladder Wall: surgically removed CBD: 0.7 cm Right Kidney: 10.4 x 6.0 x 4.5 cm Pancreas: hyperechoic its visualized portions. Liver: hyperechoic and posteriorly attenuated Gallbladder: surgically absent Evidence for sonographic Barrientos's sign: no CBD: size is wnl for age 73 post cholecystectomy Right Kidney: inferior cortical cyst = 1.3 x 1.2 x 1.0cm Right kidney shows normal cortical medullary differentiation. There is no ascites. IMPRESSION: Correlate for hepatic steatosis. Liver length is underestimated, suspect hepatomegaly.
== END | disposition home or self-care (01) ==
LOC: RADUSWWP 06:56
PROVIDERS: ATTEND Family Medicine
DX: R94.5 Abnormal results of liver function studies (principal)
CPT/HCPCS: 76705

== ENCOUNTER → 2019-04-19 | Outpatient (CLI) | payer MEDICARE ==
--- NOTE | 2019-04-19 10:06 | XR ---
EXAMINATION TYPE: XR chest 2V DATE OF EXAM: 04/19/2019 COMPARISON: 07/11/2018 HISTORY: 74-year-old female cough and congestion, pneumonia TECHNIQUE: Frontal and lateral views FINDINGS: Heart upper limits of normal in size. Atherosclerotic arch calcifications. Focal airspace opacity per ipheral right lower lung. No pleural effusion. IMPRESSION: Peripheral right basilar pneumonia. Follow-up after treatment to ensure clearance.
== END | disposition home or self-care (01) ==
LOC: RADXRMAIN 09:09
PROVIDERS: ATTEND Family Medicine
DX: J18.9 Pneumonia, unspecified organism (principal)
CPT/HCPCS: 71046

== ENCOUNTER → 2019-05-17 | Outpatient (CLI) | payer MEDICARE ==
--- NOTE | 2019-05-17 11:53 | XR ---
EXAMINATION TYPE: XR chest 2V DATE OF EXAM: 05/17/2019 COMPARISON: 2 view chest INDICATION: Pneumonia J 18.9 TECHNIQUE: Frontal and lateral views of the chest are obtained. FINDINGS: The heart size is normal. The pulmonary vasculature is normal. The lungs are clear. IMPRESSION: 1. No acute pulmonary process.
== END | disposition home or self-care (01) ==
LOC: RADXRMAIN 09:23
PROVIDERS: ATTEND Family Medicine
DX: J18.9 Pneumonia, unspecified organism (principal)
CPT/HCPCS: 71046

== ENCOUNTER → 2019-05-24 | Outpatient (CLI) | payer MEDICARE | END | disposition home or self-care (01) | LOC: LABWHC1 14:16 | PROVIDERS: ATTEND Family Medicine | DX: R05 Cough (principal) | CPT/HCPCS: 36415; 83880 ==

== ENCOUNTER → 2019-05-30 | Outpatient (CLI) | payer MEDICARE ==
--- NOTE | 2019-05-31 11:00 | ECHOF ---
Referral Reason:R01.1 cardiac murmur, unspecified MEASUREMENTS -------- HEIGHT: 162.6 cm WEIGHT: 81.2 kg BP: RVIDd: 2.9 cm (< 3.3) IVSd: 0.9 cm (0.6 - 1.1) LVIDd: 3.5 cm (3.9 - 5.3) LVPWd: 0.9 cm (0.6 - 1.1) IVSs: 1.8 cm LVIDs: 1.5 cm LVPWs: 1.8 cm LAESV Index (A-L): 33.62 ml/m Ao Diam: 2.5 cm (2.0 - 3.7) AV Cusp: 1.7 cm (1.5 - 2.6) LA Diam: 3.2 cm (2.7 - 3.8) MV EXCURSION: 10.325 mm (> 18.000) MV EF SLOPE: 66 mm/s (70 - 150) EPSS: 0.4 cm MV E Ramesh: 1.27 m/s MV DecT: 173 ms MV A Ramesh: 1.09 m/s MV E/A Ratio: 1.17 AV maxP.41 mmHg AV meanP.03 mmHg AR PHT: 190 ms RAP: 5.00 mmHg RVSP: 29.26 mmHg TAPSE: 26.94 mm FINDINGS -------- Sinus rhythm. This was a technically good study. The left ventricular size is normal. Left ventricular wall thickness is normal. Overall left vent ricular systolic function is normal with, an EF between 55 - 60 %. Mitral Doppler inflow pattern ye ggests diastolic filling abnormality 19.61. The right ventricle is normal in size. The right ventricular wall thickness is normal measuring < 5 mm. The left atrial size is normal. LA is midly dilated 29-33ml/m2. The right atrial size is normal. Aortic valve is trileaflet and is mildly thickened. There is mild aortic valve sclerosis. Trace a mount of aortic regurgitation. Peak/mean gradient across the Aortic Valve is 14.41mmHg / 7.03mmHg. The mitral valve is normal. The mitral valve leaflets are mildly thickened. Mild mitral regurgita tion is present. The tricuspid valve appears structurally normal. Mild tricuspid regurgitation present. Right vent ricular systolic pressure is normal at < 35 mmHg. There is no pulmonic regurgitation present. The aortic root size is normal. Normal inferior vena cava with normal inspiratory collapse consistent with estimated right atrial pre ssure of 5 mmHg. There is no pericardial effusion. CONCLUSIONS -------- 1. Sinus rhythm. 2. This was a technically good study. 3. The left ventricular size is normal. 4. Left ventricular wall thickness is normal. 5. Overall left ventricular systolic function is normal with, an EF between 55 - 60 %. 6. Mitral Doppler inflow pattern suggest diastolic filling abnormality 19.61. 7. The right ventricle is normal in size. 8. The right ventricular wall thickness is normal measuring < 5mm. 9. The left atrial size is normal. 10. LA is midly dilated 29-33ml/m2. 11. The right atrial size is normal. 12. Aortic valve is trileaflet and is mildly thickened. 13. There is mild aortic valve sclerosis. 14. Trace amount of aortic regurgitation. 15. Peak/mean gradient across the Aortic Valve is 14.41mmHg / 7.03mmHg. 16. The mitral valve is normal. 17. The mitral valve leaflets are mildly thickened. 18. Mild mitral regurgitation is present. 19. The tricuspid valve appears structurally normal. 20. Mild tricuspid regurgitation present. 21. Right ventricular systolic pressure is normal at < 35 mmHg. 22. There is no pulmonic regurgitation present. 23. The aortic root size is normal. 24. Normal inferior vena cava with normal inspiratory collapse consistent with estimated right atrial pressure of 5 mmHg. 25. There is no pericardial effusion. SPECIAL TECHNICAL OPERATIONS OFFICER: Sofia Holcomb RDCS
== END | disposition home or self-care (01) ==
LOC: RADECHMAIN 12:41
PROVIDERS: ATTEND Family Medicine
DX: I08.3 Combined rheumatic disorders of mitral, aortic and tricuspid valves (principal)
CPT/HCPCS: 93306

== ENCOUNTER 2019-12-01 19:10 | Inpatient (IN) | payer MEDICARE ==
[2019-12-01] MEDS ORDERED: MORPHINE SULFATE 4 MG/ML SYRINGE IV STA (19:26)
[2019-12-01] MEDS ORDERED: ONDANSETRON 4 MG/2 ML VIAL IVP STA (19:26)
[2019-12-01] MEDS ORDERED: SODIUM CHLORIDE 0.9% 500 ML 500 ML IV STA (19:26)
--- NOTE | 2019-12-01 19:40 | ED ---
General Adult HPI <Kumar Lemus - Last Filed: 12/01/19 21:42> - General Source: patient, RN notes reviewed, old records reviewed Mode of arrival: ambulatory Limitations: no limitations <Beni Vance - Last Filed: 12/01/19 22:53> - General Chief complaint: Abdominal Pain Stated complaint: Nausea and vomiting Time Seen by Provider: 12/01/19 19:19 - History of Present Illness Initial comments: 74-year-old male patient past medical history of type 2 diabetes fibromyalgia hypertension and hyperlipidemia presents to ED for chief complaint of abdominal pain. Patient reports that she ate cucumbers with their Easter meal and began experiencing abdominal pain nausea and vomiting. Reports that the pain is worse in her periumbilical and epigastric region. Denies any other complaints. Systemic: Pt denies fatigue, fever/chills, rash. Pt denies weakness, night sweats, weight loss. Neuro: Pt denies headache, visual disturbances, syncope or pre-syncope. HEENT: Pt denies ocular discharge or irritation, otalgia, rhinorrhea, pharyngitis or notable lymphadenopathy. Cardiopulmonary: Pt denies chest pain, SOB, heart palpitations, dyspnea on exertion. : Pt denies dysuria, burning w/ urination, frequency/urgency. Denies new onset urinary or bowel incontinence. MSK: Pt denies myalgia, loss of strength or function in extremities. Neuro: Pt denies new onset weakness, paresthesias. (Beni Vance) - Related Data Home Medications Medication Instructions Recorded Confirmed Losartan [Cozaar] 75 mg PO QAM 01/18/18 12/01/19 Furosemide [Lasix] 20 mg PO Q48H 08/03/18 12/01/19 Evolocumab [Repatha Syringe] 140 mg SQ Q14D 11/17/18 12/01/19 Fenofibrate [Lofibra] 160 mg PO QAM 11/17/18 12/01/19 Cholecalciferol [Vitamin D3 (25 1,000 unit PO DAILY 12/01/19 12/01/19 Mcg = 1000 Iu)] Gabapentin [Neurontin] 300 mg PO BID 12/01/19 12/01/19 HYDROcodone/APAP 7.5-325MG [[place] 1 tab PO Q8H PRN 12/01/19 12/01/19 7.5-325] Omeprazole [PriLOSEC] 20 mg PO DAILY 12/01/19 12/01/19 Pramipexole Di-HCl [Mirapex] 1.5 mg PO HS 12/01/19 12/01/19 Allergies Allergy/AdvReac Type Severity Reaction Status Date / Time Penicillins Allergy Rash/Hives Verified 12/01/19 20:31 Zokjpqx-Bpq-Ggn Reductase Allergy Rash/Hives Verified 12/01/19 20:31 Inhibitor adhesive AdvReac Rash/Hives Verified 12/01/19 20:31 aspirin AdvReac STOMACH Verified 12/01/19 20:31 UPSET/HEARTBURN Milk Containing Products AdvReac Nausea Verified 12/01/19 20:31 [Dairy] STERI STRIP Allergy Rash/Hives/ Uncoded 12/01/19 19:18 ITCHING Review of Systems ROS Other: All systems not noted in ROS Statement are negative. <Kumar Lemus - Last Filed: 12/01/19 21:42> ROS Other: All systems not noted in ROS Statement are negative. <Beni Vance - Last Filed: 12/01/19 22:53> ROS Statement: Those systems with pertinent positive or pertinent negative responses have been documented in the HPI. Past Medical History Past Medical History: Cancer, Chest Pain / Angina, Diabetes Mellitus, Eye Disorder, Fibromyalgia, GERD/Reflux, Hearing Disorder / Deafness, Hyperlipidemia, Hypertension, Osteoarthritis (OA), Pneumonia Additional Past Medical History / Comment(s): Intestinal adhesions, RESTLESS LEG, Hiatal HERNIA, MENIERES, DIVERTICULITIS, GLAUCOMA R eye, (NOT CURRENTLY ON ANY MEDICATIONS FOR) NEUROPATHY bilateral legs, hx anemia. Irregular heartbeat. Degenerative Disc Disease. Difficulty hearing certain tones. gout, skin cancer History of Any Multi-Drug Resistant Organisms: None Reported Past Surgical History: Appendectomy, Bladder Surgery, Bowel Resection, Cholecystectomy, Ear Surgery, Heart Catheterization, Hernia Repair, Hysterectomy, Joint Replacement, Orthopedic Surgery, Tonsillectomy, Tubal Ligation Additional Past Surgical History / Comment(s): Direct Microlaryngoscopy and removal left vocal cord mass.RIGHT BREAST BX, Diagnostic laparoscopy with lysis of adhesions. LUBNA KNEE REPLACEMENT, EYE surgery for cataracts bilaterally with lens implants, TUBE IN RIGHT EAR FOR MENIERES, LEFT THUMB SURGERY, hiatal hernia repair, abdominal ventral hernia repair. egd-10/08/18 Past Anesthesia/Blood Transfusion Reactions: Motion Sickness, Postoperative Nausea & Vomiting (PONV) Additional Past Anesthesia/Blood Transfusion Reaction / Comment(s): MENIERE'S, STATES "DIFF INTUBATION-JAW LOCKED UP AFTER A PREVIOUS INTUBATION". "scraped vocal cord-evaluated by Dr Smart" Past Psychological History: No Psychological Hx Reported Smoking Status: Former smoker Past Alcohol Use History: Rare Past Drug Use History: None Reported - Past Family History Brother(s) Family Medical History: Cancer Mother Family Medical History: Cancer, CVA/TIA, Deep Vein Thrombosis (DVT) Additional Family Medical History / Comment(s): STOMACH CANCER Father Family Medical History: No Reported History Additional Family Medical History / Comment(s): COMMITTED SUICIDE <Beni Vance - Last Filed: 12/01/19 22:53> General Exam Limitations: no limitations <Beni Vance - Last Filed: 12/01/19 22:53> - General Exam Comments Initial Comments: Constitutional: NAD, AOX3, Pt has pleasant affect. HEENT: NC/AT, trachea midline, neck supple, no lymphadenopathy. Posterior pharynx non erythematous, without exudates. External ears appear normal, without discharge. Mucous membranes moist. Eyes PERRLA, EOM intact. There is no scleral icterus. No pallor noted. Cardiopulmonary: RRR, no murmurs, rubs or gallops, no JVD noted. Lungs CTAB in anterior and posterior lane. No peripheral edema. Abdominal exam: Abdomen soft and non-distended. Abdomen nontender to palpation periumbilical epigastric region. No hepatosplenomegaly. No ecchymosis Neuro: CN II-XII grossly intact. No nuchal rigidity. No raccon eyes, no bermudez sign, no hemotympanum. No cervical spinal tenderness. MSK: No posterior calf tenderness bilaterally, homans sign negative bilaterally. Posterior tibialis and radial pulse +2 bilaterally. Sensation intact in upper and lower extremities. Full active ROM in upper and lower extremities, 5/5 stregnth. (Beni Vance) Course Vital Signs 12/01/19 12/01/19 12/01/19 19:16 21:35 22:24 Temperature 98.2 F 98.2 F Pulse Rate 94 98 97 Respiratory 18 20 18 Rate Blood Pressure 158/90 166/86 161/82 O2 Sat by Pulse 98 96 96 Oximetry Medical Decision Making - Lab Data Result diagrams: 12/01/19 20:05 12/01/19 20:05 <Kumar Lemus - Last Filed: 12/01/19 21:42> - Lab Data Result diagrams: 12/01/19 20:05 12/01/19 20:05 <Beni Vance - Last Filed: 12/01/19 22:53> - Medical Decision Making Patient reevaluated by myself, Dr. Lemus. Patient resting comfortably in bed. Patient states she is still having discomfort however does get her pain medication. Patient still has nausea and did vomit again. Patient states she's vomited up to 10 times. NG tube ordered. Patient updated on results and plan. Patient was reexamined and reevaluated. I do agree with PA findings. This includes diagnostic interpretation and treatment plan. On exam abdomen was soft and nontender.. Patient states she sees Dr. Squires (Kumar Lemus) 74-year-old male patient past medical history of type 2 diabetes fibromyalgia hypertension and hyperlipidemia presents to ED for chief complaint of abdominal pain. Patient reports that she ate cucumbers with their Easter meal and began experiencing abdominal pain nausea and vomiting. Reports that the pain is worse in her periumbilical and epigastric region. Denies any other complaints. Patient will signs are stable, afebrile. Physical exam displayed tenderness to periumbilical epigastric region. Laboratory investigations are obtained, displayed mild urinary tract infection. CT abdomen and pelvis displayed partial small bowel obstruction. Hiatal hernia. Indeterminate renal lesions. Patient was informed of findings. Patient admitted to Dr. iqbal with surgery evaluation as well. NG tube was placed. Case discussed and patient seen by Dr. Lemus. (Beni Vance) - Lab Data Lab Results 12/01/19 12/01/19 12/01/19 Range/Units 20:05 20:05 20:05 WBC 7.7 (3.8-10.6) k/uL RBC 4.69 (3.80-5.40) m/uL Hgb 12.5 (11.4-16.0) gm/dL Hct 37.8 (34.0-46.0) % MCV 80.7 (80.0-100.0) fL MCH 26.7 (25.0-35.0) pg MCHC 33.1 (31.0-37.0) g/dL RDW 14.5 (11.5-15.5) % Plt Count 196 (150-450) k/uL Neutrophils % 71 % Lymphocytes % 21 % Monocytes % 3 % Eosinophils % 2 % Basophils % 1 % Neutrophils # 5.5 (1.3-7.7) k/uL Lymphocytes # 1.6 (1.0-4.8) k/uL Monocytes # 0.3 (0-1.0) k/uL Eosinophils # 0.2 (0-0.7) k/uL Basophils # 0.1 (0-0.2) k/uL Sodium 140 (137-145) mmol/L Potassium 4.0 (3.5-5.1) mmol/L Chloride 106 (98-107) mmol/L Carbon Dioxide 25 (22-30) mmol/L Anion Gap 9 mmol/L BUN 22 H (7-17) mg/dL Creatinine 0.86 (0.52-1.04) mg/dL Est GFR (CKD-EPI)AfAm 79 (>60 ml/min/1.73 sqM) Est GFR (CKD-EPI)NonAf 68 (>60 ml/min/1.73 sqM) Glucose 122 H (74-99) mg/dL Plasma Lactic Acid [place] (0.7-2.0) mmol/L Calcium 10.0 (8.4-10.2) mg/dL Total Bilirubin 0.4 (0.2-1.3) mg/dL AST 33 (14-36) U/L ALT 28 (4-34) U/L Alkaline Phosphatase 72 (38-126) U/L Troponin I (0.000-0.034) ng/mL Total Protein 7.6 (6.3-8.2) g/dL Albumin 4.7 (3.5-5.0) g/dL Lipase 159 (23-300) U/L Urine Color Yellow Urine Appearance Clear (Clear) Urine pH 5.5 (5.0-8.0) Ur Specific [place] 1.019 (1.001-1.035) Urine Protein Trace H (Negative) Urine Glucose (UA) Negative (Negative) Urine Ketones Negative (Negative) Urine Blood Negative (Negative) Urine Nitrite Negative (Negative) Urine Bilirubin Negative (Negative) Urine Urobilinogen <2.0 (<2.0) mg/dL Ur Leukocyte Esterase Large H (Negative) Urine RBC 1 (0-5) /hpf Urine WBC 19 H (0-5) /hpf Ur Squamous Epith Cells <1 (0-4) /hpf Urine Bacteria Many H (None) /hpf Urine Mucus Rare H (None) /hpf 12/01/19 12/01/19 Range/Units 20:05 20:05 WBC (3.8-10.6) k/uL RBC (3.80-5.40) m/uL Hgb (11.4-16.0) gm/dL Hct (34.0-46.0) % MCV (80.0-100.0) fL MCH (25.0-35.0) pg MCHC (31.0-37.0) g/dL RDW (11.5-15.5) % Plt Count (150-450) k/uL Neutrophils % % Lymphocytes % % Monocytes % % Eosinophils % % Basophils % % Neutrophils # (1.3-7.7) k/uL Lymphocytes # (1.0-4.8) k/uL Monocytes # (0-1.0) k/uL Eosinophils # (0-0.7) k/uL Basophils # (0-0.2) k/uL Sodium (137-145) mmol/L Potassium (3.5-5.1) mmol/L Chloride (98-107) mmol/L Carbon Dioxide (22-30) mmol/L Anion Gap mmol/L BUN (7-17) mg/dL Creatinine (0.52-1.04) mg/dL Est GFR (CKD-EPI)AfAm (>60 ml/min/1.73 sqM) Est GFR (CKD-EPI)NonAf (>60 ml/min/1.73 sqM) Glucose (74-99) mg/dL Plasma Lactic Acid [place] 1.3 (0.7-2.0) mmol/L Calcium (8.4-10.2) mg/dL Total Bilirubin (0.2-1.3) mg/dL AST (14-36) U/L ALT (4-34) U/L Alkaline Phosphatase (38-126) U/L Troponin I <0.012 (0.000-0.034) ng/mL Total Protein (6.3-8.2) g/dL Albumin (3.5-5.0) g/dL Lipase (23-300) U/L Urine Color Urine Appearance (Clear) Urine pH (5.0-8.0) Ur Specific [place] (1.001-1.035) Urine Protein (Negative) Urine Glucose (UA) (Negative) Urine Ketones (Negative) Urine Blood (Negative) Urine Nitrite (Negative) Urine Bilirubin (Negative) Urine Urobilinogen (<2.0) mg/dL Ur Leukocyte Esterase (Negative) Urine RBC (0-5) /hpf Urine WBC (0-5) /hpf Ur Squamous Epith Cells (0-4) /hpf Urine Bacteria (None) /hpf Urine Mucus (None) /hpf Disposition <Kumar Lemus - Last Filed: 12/01/19 21:42> Is patient prescribed a controlled substance at d/c from ED?: No <Beni Vance - Last Filed: 12/01/19 22:53> Clinical Impression: Small bowel obstruction Disposition: ADMITTED IP TO THIS HOSP Condition: Serious
[2019-12-01 20:19] LABS: Basophils # (A) 0.1 k/uL (0-0.2); Basophils % (A) 1 %; Eosinophils # (A) 0.2 k/uL (0-0.7); Eosinophils % (A) 2 %; HCT 37.8 % (34.0-46.0); HGB 12.5 gm/dL (11.4-16.0); Lymphocytes # (A) 1.6 k/uL (1.0-4.8); Lymphocytes % (A) 21 %; MCH 26.7 pg (25.0-35.0); MCHC 33.1 g/dL (31.0-37.0); MCV 80.7 fL (80.0-100.0); Mean Platelet Volume 8.2; Monocytes # (A) 0.3 k/uL (0-1.0); Monocytes % (A) 3 %; Neutrophils # (A) 5.5 k/uL (1.3-7.7); Neutrophils % (A) 71 %; Platelet Count 196 k/uL (150-450); RBC 4.69 m/uL (3.80-5.40); RDW 14.5 % (11.5-15.5); WBC 7.7 k/uL (3.8-10.6)
[2019-12-01 20:28] LABS: Appearance,Urine Clear (Clear); Bacteria,Urine Many /hpf; Bilirubin,Urine Negative (Negative); Blood,Urine Negative (Negative); Color,Urine Yellow; Glucose,Urine (UA) Negative (Negative); Ketones,Urine Negative (Negative); Leukocyte Esterase,Urine Large (Negative); Mucus,Urine Rare /hpf; Nitrite,Urine Negative (Negative); PH, Urine 5.5 (5.0-8.0); Protein,Urine Trace (Negative); RBC,Urine 1 /hpf (0-5); Specific Gravity,Urine 1.019 (1.001-1.035); Squamous Epithelial Cell,Urine <1 /hpf (0-4); Urobilinogen,Urine <2.0 mg/dL (<2.0); WBC,Urine 19 /hpf (0-5)
[2019-12-01 20:31] LABS: Albumin 4.7 g/dL (3.5-5.0); Total Bilirubin 0.4 mg/dL (0.2-1.3); Total Protein 7.6 g/dL (6.3-8.2)
--- NOTE | 2019-12-01 21:07 | CT ---
EXAMINATION TYPE: CT abdomen pelvis w con DATE OF EXAM: 12/01/2019 COMPARISON: 05/02/2017 HISTORY: Nausea and vomiting after eating today CT DLP: 1464.1 mGycm Automated exposure control for dose reduction was used. CONTRAST: CT scan of the abdomen pelvis is performed with IV Contrast, patient injected with 100 mL of Isovue 3 00. FINDINGS- LUNG BASES-subsegmental changes most likely in the basis of atelectasis. LIVER/GB-mild reduced attenuation of the liver suggestive of hepatic steatosis. Liver measures 22 cm suggestive of hepatomegaly. Correlate with liver function studies.. Postcholecystectomy changes noted . PANCREAS- No gross abnormality is seen . SPLEEN- No gross abnormality is seen. Accessory splenule is noted. ADRENALS-subcentimeter adrenal nodularity stable from the prior exam. 2 small to characterize. KIDNEYS/BLADDER- no hydronephrosis or nephrolithiasis. Upper pole hypodensity involving the left kidn ey too small to characterize. Similar lower pole right renal hypodensity too small to characterize [place] th are somewhat larger than the prior exam could be followed with ultrasound on a short-term basis.. BOWEL-there are numerous dilated small bowel loops in the upper abdomen and left abdomen. There is a caliber differential at the level the distal jejunum. Changes of diverticulosis are seen. Appendix no t seen with certainty. Colon appears relatively decompressed. There is a large hiatal hernia.. LYMPH NODES- No greater than 1cm abdominal or pelvic lymph nodes areappreciated. OSSEOUS STRUCTURES-hypertrophic and degenerative changes spine. There is a grade 1 anterolisthesis of L4 on L5. Arthropathy of the hips. OTHER- postsurgical change involving the anterior abdominal wall suggestive of hernia repair surgery . No free fluid. No free air. Aorta of normal caliber. IMPRESSION- 1. Dilated small bowel loops with a caliber change seen within the left abdomen likely the level the distal jejunum suspicious for partial small bowel obstruction. Correlate clinically. 2. Large hiatal hernia. 3. Diverticulosis with no CT evidence of diverticulitis 4. Indeterminate renal lesions could be followed with short-term follow-up ultrasound. 5. Hepatomegaly correlate for hepatic steatosis.
[2019-12-01] MEDS ORDERED: HYDROmorphone 1 MG/ML 1 ML SYRINGE IVP STA (21:18)
[2019-12-01] MEDS ORDERED: ONDANSETRON 4 MG/2 ML VIAL IVP PRN (22:24)
[2019-12-01] MEDS ORDERED: NALOXONE 0.4 MG/ML 1 ML VIAL IV PRN (22:24)
[2019-12-01] MEDS: SODIUM CHLORIDE 0.9% 1,000 ML IV SCH (23:25)
[2019-12-02] MEDS: MORPHINE SULFATE 4 MG/ML SYRINGE IV PRN ×4 (02:57→19:22)
[2019-12-02 06:58] LABS: Glucose,Whole Blood 148 mg/dL (75-99)
[2019-12-02] MEDS: SODIUM CHLORIDE 0.9% 1,000 ML IV SCH ×2 (09:27→19:27)
[2019-12-02] MEDS ORDERED: HYDROcodone/APAP 7.5-325MG 1 EACH TAB PO PRN (11:05)
[2019-12-02 12:05] LABS: Glucose,Whole Blood 109 mg/dL (75-99)
[2019-12-02] MEDS: GABAPENTIN 300 MG CAP PO SCH ×2 (12:32→20:30)
[2019-12-02] MEDS: ENOXAPARIN 40 MG/0.4 ML SYRINGE SQ SCH (12:32)
[2019-12-02] MEDS: LOSARTAN 25 MG TAB PO SCH (12:32)
--- NOTE | 2019-12-02 15:02 | P.GSCN ---
History of Present Illness Consult date: 12/02/19 Reason for Consult: SBO Requesting physician: Beni Vance History of present illness: CHIEF COMPLAINT: Nausea vomiting HISTORY OF PRESENT ILLNESS: 74-year-old female presented to the emergency room with multiple episodes of emesis after having Easter dinner yesterday. She reports generalized abdominal pain. NG tube was placed in the emergency room. PAST MEDICAL HISTORY: See list. PAST SURGICAL HISTORY: See list. SOCIAL HISTORY: No illicit drug use. REVIEW OF SYSTEMS: CONSTITUTIONAL: Denies fever or chills. HEENT: Denies blurred vision, vision changes, or eye pain. Denies hemoptysis CARDIOVASCULAR: Denies chest pain or pressure. RESPIRATORY: No shortness of breath. GASTROINTESTINAL: Refer to HPI for pertinent findings HEMATOLOGIC: Denies bleeding disorders. GENITOURINARY: Denies any blood in urine. SKIN: Denies pruitis. Denies rash. PHYSICAL EXAM: VITAL SIGNS: Reviewed. GENERAL: Well-developed in no acute distress. HEENT: No sclera icterus. Extraocular movements grossly intact. Moist buccal mucosa. Head is atraumatic, normocephalic. ABDOMEN: Soft. Nondistended. NG tube noted. Tenderness with palpation to bilateral upper quadrants. NEUROLOGIC: Alert and oriented. Cranial nerves II through XII grossly intact. LABORATORY DATA: WBC 7.7. Hemoglobin 12.5. Platelet count 196. IMAGING: CT abdomen and pelvis: Dilated small bowel loops with a caliber change seen within the left abdomen likely at the level of the distal jejunum suspicious for partial small bowel obstruction. ASSESSMENT: 1. Small bowel obstruction PLAN: -Continue NG to low intermittent suction -Nothing by mouth -We will attempt resolution of small bowel obstruction with conservative measures. Patient instructed if small bowel obstruction does not resolve, she may need surgical intervention Nurse practitioner note has been reviewed by physician. Signing provider agrees with the documented findings, assessment, and plan of care. Past Medical History Past Medical History: Cancer, Chest Pain / Angina, Diabetes Mellitus, Eye Disorder, Fibromyalgia, GERD/Reflux, Hearing Disorder / Deafness, Hyperlipidemia, Hypertension, Osteoarthritis (OA), Pneumonia Additional Past Medical History / Comment(s): Intestinal adhesions, RESTLESS LEG, Hiatal HERNIA, MENIERES, DIVERTICULITIS, GLAUCOMA R eye, (NOT CURRENTLY ON ANY MEDICATIONS FOR) NEUROPATHY bilateral legs, hx anemia. Irregular heartbeat. Degenerative Disc Disease. Difficulty hearing certain tones. gout, skin cancer History of Any Multi-Drug Resistant Organisms: None Reported Past Surgical History: Appendectomy, Bladder Surgery, Bowel Resection, Cholecystectomy, Ear Surgery, Heart Catheterization, Hernia Repair, Hysterectomy, Joint Replacement, Orthopedic Surgery, Tonsillectomy, Tubal Ligation Additional Past Surgical History / Comment(s): Direct Microlaryngoscopy and removal left vocal cord mass.RIGHT BREAST BX, Diagnostic laparoscopy with lysis of adhesions. LUBNA KNEE REPLACEMENT, EYE surgery for cataracts bilaterally with lens implants, TUBE IN RIGHT EAR FOR MENIERES, LEFT THUMB SURGERY, hiatal hernia repair, abdominal ventral hernia repair. egd-10/08/18, esophagus stretched x3, spur removal left heel Past Anesthesia/Blood Transfusion Reactions: Motion Sickness, Postoperative Nausea & Vomiting (PONV) Additional Past Anesthesia/Blood Transfusion Reaction / Comm: MENIERE'S, STATES "DIFF INTUBATION-JAW LOCKED UP AFTER A PREVIOUS INTUBATION". "scraped vocal cord-evaluated by Dr Smart" Past Psychological History: No Psychological Hx Reported Additional Psychological History / Comment(s): . Smoking Status: Former smoker Past Alcohol Use History: Rare Additional Past Alcohol Use History / Comment(s): Smoked x 5 years off and on less then a ppd, quit 30 years ago. Past Drug Use History: None Reported - Past Family History Brother(s) Family Medical History: Cancer Mother Family Medical History: Cancer, CVA/TIA, Deep Vein Thrombosis (DVT) Additional Family Medical History / Comment(s): STOMACH CANCER Father Family Medical History: No Reported History Additional Family Medical History / Comment(s): COMMITTED SUICIDE Medications and Allergies Home Medications Medication Instructions Recorded Confirmed Type Losartan [Cozaar] 75 mg PO QAM 01/18/18 12/01/19 History Furosemide [Lasix] 20 mg PO Q48H 08/03/18 12/01/19 History Evolocumab [Repatha Syringe] 140 mg SQ Q14D 11/17/18 12/01/19 History Fenofibrate [Lofibra] 160 mg PO QAM 11/17/18 12/01/19 History Cholecalciferol [Vitamin D3 (25 1,000 unit PO DAILY 12/01/19 12/01/19 History Mcg = 1000 Iu)] Gabapentin [Neurontin] 300 mg PO BID 12/01/19 12/01/19 History HYDROcodone/APAP 7.5-325MG [[place] 1 tab PO Q8H PRN 12/01/19 12/01/19 History 7.5-325] Omeprazole [PriLOSEC] 20 mg PO DAILY 12/01/19 12/01/19 History Pramipexole Di-HCl [Mirapex] 1.5 mg PO HS 12/01/19 12/01/19 History Allergies Allergy/AdvReac Type Severity Reaction Status Date / Time Penicillins Allergy Rash/Hives Verified 12/01/19 20:31 [place]-Goz-Iol Reductase Allergy Rash/Hives Verified 12/01/19 20:31 Inhibitor adhesive AdvReac Rash/Hives Verified 12/01/19 20:31 aspirin AdvReac STOMACH Verified 12/01/19 20:31 UPSET/HEARTBURN Milk Containing Products AdvReac Nausea Verified 12/01/19 20:31 [Dairy] STERI STRIP Allergy Rash/Hives/ Uncoded 12/01/19 19:18 ITCHING Surgical - Exam Vital Signs Temp Pulse Resp BP Pulse Ox 98.2 F 94 18 158/90 98 12/01/19 19:16 12/01/19 19:16 12/01/19 19:16 12/01/19 19:16 12/01/19 19:16 Results - Labs 12/01/19 20:05 12/01/19 20:05 Abnormal Lab Results - Last 24 Hours (Table) 12/01/19 12/01/19 12/02/19 Range/Units 20:05 20:05 06:55 BUN 22 H (7-17) mg/dL Glucose 122 H (74-99) mg/dL POC Glucose (mg/dL) 148 H (75-99) mg/dL Urine Protein Trace H (Negative) Ur Leukocyte Esterase Large H (Negative) Urine WBC 19 H (0-5) /hpf Urine Bacteria Many H (None) /hpf Urine Mucus Rare H (None) /hpf 12/02/19 Range/Units 12:03 BUN (7-17) mg/dL Glucose (74-99) mg/dL POC Glucose (mg/dL) 109 H (75-99) mg/dL Urine Protein (Negative) Ur Leukocyte Esterase (Negative) Urine WBC (0-5) /hpf Urine Bacteria (None) /hpf Urine Mucus (None) /hpf Microbiology - Last 24 Hours (Table) 12/01/19 20:05 Urine Culture - Preliminary Urine,Voided Diabetes panel 12/01/19 Range/Units 20:05 Sodium 140 (137-145) mmol/L Potassium 4.0 (3.5-5.1) mmol/L Chloride 106 (98-107) mmol/L Carbon Dioxide 25 (22-30) mmol/L BUN 22 H (7-17) mg/dL Creatinine 0.86 (0.52-1.04) mg/dL Glucose 122 H (74-99) mg/dL Calcium 10.0 (8.4-10.2) mg/dL AST 33 (14-36) U/L ALT 28 (4-34) U/L Alkaline Phosphatase 72 (38-126) U/L Total Protein 7.6 (6.3-8.2) g/dL Albumin 4.7 (3.5-5.0) g/dL Calcium panel 12/01/19 Range/Units 20:05 Calcium 10.0 (8.4-10.2) mg/dL Albumin 4.7 (3.5-5.0) g/dL Pituitary panel 12/01/19 Range/Units 20:05 Sodium 140 (137-145) mmol/L Potassium 4.0 (3.5-5.1) mmol/L Chloride 106 (98-107) mmol/L Carbon Dioxide 25 (22-30) mmol/L BUN 22 H (7-17) mg/dL Creatinine 0.86 (0.52-1.04) mg/dL Glucose 122 H (74-99) mg/dL Calcium 10.0 (8.4-10.2) mg/dL Adrenal panel 12/01/19 Range/Units 20:05 Sodium 140 (137-145) mmol/L Potassium 4.0 (3.5-5.1) mmol/L Chloride 106 (98-107) mmol/L Carbon Dioxide 25 (22-30) mmol/L BUN 22 H (7-17) mg/dL Creatinine 0.86 (0.52-1.04) mg/dL Glucose 122 H (74-99) mg/dL Calcium 10.0 (8.4-10.2) mg/dL Total Bilirubin 0.4 (0.2-1.3) mg/dL AST 33 (14-36) U/L ALT 28 (4-34) U/L Alkaline Phosphatase 72 (38-126) U/L Total Protein 7.6 (6.3-8.2) g/dL Albumin 4.7 (3.5-5.0) g/dL
[2019-12-02 17:22] LABS: Glucose,Whole Blood 88 mg/dL (75-99)
--- NOTE | 2019-12-02 18:47 | P.HPIM ---
History of Present Illness H&P Date: 12/02/19 Chief Complaint: Abdominal pain nausea vomiting History of presenting complaint: This is a 74-year-old patient of Dr. Hernandez. Chronic stable medical conditions include diabetes, fibromyalgia, GERD, hyperlipidemia, hypertension, osteoarthritis, restless leg syndrome, hiatal hernia, many years, peripheral neuropathy, DJD, some hard of hearing. Patient started of yesterday abdominal pain followed by nausea vomiting all day. Had a small bowel movement yesterday. No fever no chills. Presents to the ER. Found to have a small bowel obstruction. NG tube was placed. Feeling a bit better this morning. Still having tenderness in the abdomen. Had a very small bowel movement. No further fever and chills. Review of systems: GEN.: Tired EYES: None HEENT: None NECK: None RESPIRATORY: None CARDIOVASCULAR: None GASTROINTESTINAL: As above GENITOURINARY: None MUSCULOSKELETAL: Joint pains] LYMPHATICS: None HEMATOLOGICAL: None PSYCHIATRY: None NEUROLOGICAL: None Past medical history to include: Diabetes, fibromyalgia, GERD, hard of hearing, hyperlipidemia, hypertension, osteoarthritis, and a sterile conditions, restless leg syndrome, hiatal hernia, pain is disease, diabetic colitis, glaucoma in the right eye, peripheral neuropathy, DJD, gout, Social history: Drains alcohol rarely. Does not smoke. Lives alone. Physical examination: VITAL SIGNS: 98.2, 94, 18, 158/90, 98% on room air GENERAL: [BMI 34 sitting on bed slightly tired. EYES: Pupils equal. Conjunctiva normal. HEENT: External appearance of nose and ears normal, oral cavity dry, NG tube in place. NECK: JVD not raised; masses not palpable. HEART: First and second heart sounds are normal; no edema. LUNGS: Respiratory rate normal; clear to auscultation. ABDOMEN: Soft, tender, no guarding to 60, liver spleen not palpable, no masses palpable. PSYCH: Alert and oriented x3; mood and affect normal. MUSCULOSKELETAL: Evidence of OA NEUROLOGICAL: Cranial nerves grossly intact; no facial asymmetry, power and sensation grossly intact. LYMPHATICS: No lymph nodes palpable in the axilla and neck INVESTIGATIONS, reviewed in the clinical context: White count 7.7 hemoglobin 12.5 potassium 4.0 crit 0.86 EKG tracing personally reviewed by me-normal sinus rhythm Computed tomography scan of the abdomen-dilated small bowel loops with obstruction questionably the distal jejunal area. Large hiatal hernia, diverticulosis, hepatomegaly Assessment: -Acute small bowel obstruction possibly from adhesions, with NG tube in place -Diabetes mellitus type 2 -Chronic fibromyalgia -GERD -Hyperlipidemia -Essential hypertension -Primary osteoarthritis -Hiatal hernia -Restless leg syndrome -Chronic diverticulosis-asymptomatic -Peripheral neuropathy Plan: Patient is an NG tube. We'll start the patient on oral medications holding the suction intermittently. Lovenox for DVT prophylaxis. Repeat electrolytes in the morning. Repeat x-ray in the morning. Care was discussed with the patient. Questions were answered. General surgery was consulted. Past Medical History Past Medical History: Cancer, Chest Pain / Angina, Diabetes Mellitus, Eye Disord er, Fibromyalgia, GERD/Reflux, Hearing Disorder / Deafness, Hyperlipidemia, Hypertension, Osteoarthritis (OA), Pneumonia Additional Past Medical History / Comment(s): Intestinal adhesions, RESTLESS LEG, Hiatal HERNIA, MENIERES, DIVERTICULITIS, GLAUCOMA R eye, (NOT CURRENTLY ON ANY MEDICATIONS FOR) NEUROPATHY bilateral legs, hx anemia. Irregular heartbeat. Degenerative Disc Disease. Difficulty hearing certain tones. gout, skin cancer History of Any Multi-Drug Resistant Organisms: None Reported Past Surgical History: Appendectomy, Bladder Surgery, Bowel Resection, Cholecystectomy, Ear Surgery, Heart Catheterization, Hernia Repair, Hysterectomy, Joint Replacement, Orthopedic Surgery, Tonsillectomy, Tubal Ligation Additional Past Surgical History / Comment(s): Direct Microlaryngoscopy and tahira emeka left vocal cord mass.RIGHT BREAST BX, Diagnostic laparoscopy with lysis of adhesions. LUBNA KNEE REPLACEMENT, EYE surgery for cataracts bilaterally with lens implants, TUBE IN RIGHT EAR FOR MENIERES, LEFT THUMB SURGERY, hiatal hernia repair, abdominal ventral hernia repair. egd-10/08/18, esophagus stretched x3, spur removal left heel Past Anesthesia/Blood Transfusion Reactions: Motion Sickness, Postoperative Nausea & Vomiting (PONV) Additional Past Anesthesia/Blood Transfusion Reaction / Comment(s): MENIERE'S, STATES "DIFF INTUBATION-JAW LOCKED UP AFTER A PREVIOUS INTUBATION". "scraped vocal cord-evaluated by Dr Smart" Past Psychological History: No Psychological Hx Reported Additional Psychological History / Comment(s): . Smoking Status: Former smoker Past Alcohol Use History: Rare Additional Past Alcohol Use History / Comment(s): Smoked x 5 years off and on less then a ppd, quit 30 years ago. Past Drug Use History: None Reported - Past Family History Brother(s) Family Medical History: Cancer Mother Family Medical History: Cancer, CVA/TIA, Deep Vein Thrombosis (DVT) Additional Family Medical History / Comment(s): STOMACH CANCER Father Family Medical History: No Reported History Additional Family Medical History / Comment(s): COMMITTED SUICIDE Medications and Allergies Home Medications Medication Instructions Recorded Confirmed Type Losartan [Cozaar] 75 mg PO QAM 01/18/18 12/01/19 History Furosemide [Lasix] 20 mg PO Q48H 08/03/18 12/01/19 History Evolocumab [Repatha Syringe] 140 mg SQ Q14D 11/17/18 12/01/19 History Fenofibrate [Lofibra] 160 mg PO QAM 11/17/18 12/01/19 History Cholecalciferol [Vitamin D3 (25 1,000 unit PO DAILY 12/01/19 12/01/19 History Mcg = 1000 Iu)] Gabapentin [Neurontin] 300 mg PO BID 12/01/19 12/01/19 History HYDROcodone/APAP 7.5-325MG [[place] 1 tab PO Q8H PRN 12/01/19 12/01/19 History 7.5-325] Omeprazole [PriLOSEC] 20 mg PO DAILY 12/01/19 12/01/19 History Pramipexole Di-HCl [Mirapex] 1.5 mg PO HS 12/01/19 12/01/19 History Allergies Allergy/AdvReac Type Severity Reaction Status Date / Time Penicillins Allergy Rash/Hives Verified 12/01/19 20:31 Ysxlxxn-Tkg-Mcd Reductase Allergy Rash/Hives Verified 12/01/19 20:31 Inhibitor adhesive AdvReac Rash/Hives Verified 12/01/19 20:31 aspirin AdvReac STOMACH Verified 12/01/19 20:31 UPSET/HEARTBURN Milk Containing Products AdvReac Nausea Verified 12/01/19 20:31 [Dairy] STERI STRIP Allergy Rash/Hives/ Uncoded 12/01/19 19:18 ITCHING Physical Exam Vitals: Vital Signs Temp Pulse Pulse Resp BP BP Pulse Ox 12/02/19 04:32 98.2 F 97 18 144/80 95 12/01/19 23:00 98.7 F 99 17 131/75 95 04/12/20 22:24 98.2 F 97 18 161/82 96 12/01/19 21:35 98 20 166/86 96 12/01/19 19:16 98.2 F 94 18 158/90 98 Intake and Output 12/01/19 12/02/19 12/02/19 22:59 06:59 14:59 Intake Total 600 Output Total 250 Balance 350 Intake: Intake, IV Titration 600 Amount Sodium Chloride 0.9% 1, 550 000 ml @ 100 mls/hr IV . Q10H [facility] Rx#:[id number] cefTRIAXone 1 gm In 50 Sodium Chloride 0.9% 50 ml @ 100 mls/hr IVPB ONCE STA Rx#:[id number] Output: Gastric Drainage 250 Other: Voiding Method Toilet # Voids 1 # Bowel Movements 1 Weight 87.09 kg 87.09 kg Results CBC & Chem 7: 12/01/19 20:05 12/01/19 20:05 Labs: Abnormal Lab Results - Last 24 Hours (Table) 12/01/19 12/01/19 12/02/19 Range/Units 20:05 20:05 06:55 BUN 22 H (7-17) mg/dL Glucose 122 H (74-99) mg/dL POC Glucose (mg/dL) 148 H (75-99) mg/dL Urine Protein Trace H (Negative) Ur Leukocyte Esterase Large H (Negative) Urine WBC 19 H (0-5) /hpf Urine Bacteria Many H (None) /hpf Urine Mucus Rare H (None) /hpf Microbiology - Last 24 Hours (Table) 12/01/19 20:05 Urine Culture - Preliminary Urine,Voided Thrombosis Risk Factor Assmnt - Choose All That Apply Any of the Below Risk Factors Present?: Yes Each Factor Represents 1 point: Obesity (BMI >25) Other Risk Factors: Yes Each Risk Factor Represents 2 Points: Age 61-74 years Other congenital or acquired thrombophilia - If yes, enter type in comment: No Thrombosis Risk Factor Assessment Total Risk Factor Score: 3 Thrombosis Risk Factor Assessment Level: Moderate Risk
[2019-12-02] MEDS: PRAMIPEXOLE 0.5 MG TAB PO SCH (20:30)
[2019-12-02 21:35] LABS: Glucose,Whole Blood 100 mg/dL (75-99)
[2019-12-02 23:51] LABS: Glucose,Whole Blood 100 mg/dL (75-99)
[2019-12-03] MEDS: SODIUM CHLORIDE 0.9% 1,000 ML IV SCH ×2 (05:35→16:21)
[2019-12-03 05:45] LABS: Glucose,Whole Blood 90 mg/dL (75-99)
[2019-12-03] MEDS: GABAPENTIN 300 MG CAP PO SCH ×2 (07:13→20:30)
[2019-12-03] MEDS: PANTOPRAZOLE 40 MG TABLET PO SCH (07:13)
[2019-12-03] MEDS: ENOXAPARIN 40 MG/0.4 ML SYRINGE SQ SCH (07:13)
[2019-12-03] MEDS: LOSARTAN 25 MG TAB PO SCH (07:13)
--- NOTE | 2019-12-03 07:46 | XR ---
EXAMINATION TYPE: XR abdomen 2V DATE OF EXAM: 12/03/2019 COMPARISON: 02/10/2019 HISTORY: Pain TECHNIQUE: One view abdominal series FINDINGS: NG tube noted and suggestion previous hernia repair surgery subsegmental changes at the lung bases an d there is a small hiatal hernia. Bowel gas pattern nonspecific. Postsurgical change in the pelvis. A rthropathy of the hips and hypertrophic and degenerative changes spine. IMPRESSION: 1. Nonspecific abdomen. NG tube noted.
[2019-12-03 11:46] LABS: Glucose,Whole Blood 94 mg/dL (75-99)
--- NOTE | 2019-12-03 14:11 | P.PN ---
Subjective Progress Note Date: 12/03/19 CHIEF COMPLAINT: Nausea vomiting HISTORY OF PRESENT ILLNESS: Patient examined at the bedside. She reports improvement in abdominal pain. Denies nausea. NG tube remains intact. She reports passing flatus today. PHYSICAL EXAM: VITAL SIGNS: Reviewed. GENERAL: Well-developed in no acute distress. HEENT: No sclera icterus. Extraocular movements grossly intact. Moist buccal mucosa. Head is atraumatic, normocephalic. ABDOMEN: Soft. Nondistended. NG tube noted. Minimal tenderness with palpation to bilateral upper quadrants. NEUROLOGIC: Alert and oriented. Cranial nerves II through XII grossly intact. ASSESSMENT: 1. Small bowel obstruction PLAN: -Discontinue NG tube -Trial clear liquid diet Nurse practitioner note has been reviewed by physician. Signing provider agrees with the documented findings, assessment, and plan of care. Objective - Vital Signs Vital signs: Vital Signs Temp 98 F 12/03/19 12:37 Pulse 89 12/03/19 12:37 Resp 17 12/03/19 12:37 BP 153/81 12/03/19 12:37 Pulse Ox 95 12/03/19 12:37 Intake & Output 12/02/19 12/03/19 12/03/19 18:59 06:59 18:59 Intake Total 800 1200 Output Total 750 150 Balance 800 450 -150 Intake: Intake, IV Titration 800 1200 Amount Sodium Chloride 0.9% 1, 800 1200 000 ml @ 100 mls/hr IV . Q10H [facility] Rx#:[id number] Oral 0 Output: Gastric Drainage 750 150 Other: Voiding Method Toilet # Voids 3 1 - Labs CBC & Chem 7: 12/01/19 20:05 12/01/19 20:05 Labs: Abnormal Lab Results - Last 24 Hours (Table) 12/02/19 12/02/19 Range/Units 21:34 23:50 POC Glucose (mg/dL) 100 H 100 H (75-99) mg/dL Microbiology - Last 24 Hours (Table) 12/01/19 20:05 Urine Culture - Preliminary Urine,Voided Gram Neg Bacilli
[2019-12-03 17:17] LABS: Glucose,Whole Blood 97 mg/dL (75-99)
[2019-12-03 20:13] LABS: Glucose,Whole Blood 96 mg/dL (75-99)
--- NOTE | 2019-12-03 20:17 | P.PN ---
Progress Note - Text Progress Note Date: 12/03/19 Chief Complaint: Abdominal pain nausea vomiting History of presenting complaint: This is a 74-year-old patient of Dr. Hernandez. Chronic stable medical conditions include diabetes, fibromyalgia, GERD, hyperlipidemia, hypertension, osteoarthritis, restless leg syndrome, hiatal hernia, many years, peripheral neuropathy, DJD, some hard of hearing. Patient started of yesterday abdominal pain followed by nausea vomiting all day. Had a small bowel movement yesterday. No fever no chills. Presents to the ER. Found to have a small bowel obstruction. NG tube was placed. Feeling a bit better this morning. Still having tenderness in the abdomen. Had a very small bowel movement. No further fever and chills. Admitted with-small bowel obstruction. NG tube to suction place. Today-NG tube to suction current dose. Decrease abdominal pain. Did positive flatus. No nausea vomiting. No fever. Review of systems: Was done for constitutional, cardiovascular, GI, pulmonary. relevant finding as above Active Medications Hydrocodone Bitart/Acetaminophen ([place] 7.5-325) 1 each PO Q8H PRN PRN Reason: Pain Enoxaparin Sodium (Lovenox) 40 mg SQ DAILY [facility] Last Admin: 12/03/19 07:13 Dose: 40 mg Documented by: Gabapentin (Neurontin) 300 mg PO BID [facility] Last Admin: 12/03/19 07:13 Dose: 300 mg Documented by: Sodium Chloride (Saline 0.9%) 1,000 mls @ 100 mls/hr IV .Q10H [facility] Last Admin: 12/03/19 16:21 Dose: 50 mls/hr Documented by: Losartan Potassium (Cozaar) 75 mg PO QAM [facility] Last Admin: 12/03/19 07:13 Dose: 75 mg Documented by: Morphine Sulfate (Morphine Sulfate (Inj)) 4 mg IV Q4HR PRN PRN Reason: Severe Pain Last Admin: 12/02/19 19:22 Dose: 4 mg Documented by: Naloxone HCl (Narcan) 0.2 mg IV Q2M PRN PRN Reason: Opioid Reversal Ondansetron HCl (Zofran) 4 mg IVP Q8HR PRN PRN Reason: Nausea And Vomiting Pantoprazole Sodium (Protonix) 40 mg PO AC-BRKFST [facility] Last Admin: 12/03/19 07:13 Dose: 40 mg Documented by: Pramipexole Dihydrochloride (Mirapex) 1.5 mg PO HS [facility] Last Admin: 12/02/19 20:30 Dose: 1.5 mg Documented by: Physical examination: VITAL SIGNS: 98, 89, 17, 153/81, 95% room air GENERAL: Sitting up in a chair, looking better EYES: Pupils equal. Conjunctiva normal. HEENT: External appearance of nose and ears normal, oral cavity dry, NG tube in place. NECK: JVD not raised; masses not palpable. HEART: First and second heart sounds are normal; no edema. LUNGS: Respiratory rate normal; clear to auscultation. ABDOMEN: Soft, mild tender, no guarding to 60, liver spleen not palpable, no masses palpable. PSYCH: Alert and oriented x3; mood and affect normal. MUSCULOSKELETAL: Evidence of OA INVESTIGATIONS, reviewed in the clinical context: Accu-Cheks 90, 94, 97 Abdominal x-ray film personally reviewed by [id number] findings Previous testing White count 7.7 hemoglobin 12.5 potassium 4.0 crit 0.86 EKG tracing personally reviewed by me-normal sinus rhythm Computed tomography scan of the abdomen-dilated small bowel loops with obstruction questionably the distal jejunal area. Large hiatal hernia, diverticulosis, hepatomegaly Assessment: -Acute small bowel obstruction possibly from adhesions, with NG tube in place -Diabetes mellitus type 2 -Chronic fibromyalgia -GERD -Hyperlipidemia -Essential hypertension -Primary osteoarthritis -Hiatal hernia -Restless leg syndrome -Chronic diverticulosis-asymptomatic -Peripheral neuropathy Plan: Continue with NG tube. IV fluids. Care was discussed with the patient. Slow improvement. Repeat lites in the morning..
[2019-12-03] MEDS: PRAMIPEXOLE 0.5 MG TAB PO SCH (20:29)
[2019-12-04] MEDS: SODIUM CHLORIDE 0.9% 1,000 ML IV SCH (05:03)
[2019-12-04 05:07] VITALS: RESP 18; TEMP 97.9
[2019-12-04 06:56] LABS: African American GFR (CKD) >90 (>60 ml/min/1.73 sqM); Anion Gap 8 mmol/L; Blood Urea Nitrogen 13 mg/dL (7-17); Calcium 9.7 mg/dL (8.4-10.2); Carbon Dioxide 21 mmol/L (22-30); Chloride 110 mmol/L (98-107); Glucose 91 mg/dL (74-99); Non-African American GFR(CKD) 90 (>60 ml/min/1.73 sqM); Sodium 139 mmol/L (137-145)
[2019-12-04 06:59] LABS: Potassium 4.1 mmol/L (3.5-5.1)
[2019-12-04 07:04] LABS: Glucose,Whole Blood 108 mg/dL (75-99)
[2019-12-04] MEDS: ENOXAPARIN 40 MG/0.4 ML SYRINGE SQ SCH (08:42)
[2019-12-04] MEDS: PANTOPRAZOLE 40 MG TABLET PO SCH (08:42)
[2019-12-04] MEDS: GABAPENTIN 300 MG CAP PO SCH (08:42)
[2019-12-04] MEDS: LOSARTAN 25 MG TAB PO SCH (08:42)
--- NOTE | 2019-12-04 10:43 | P.PN ---
Subjective Progress Note Date: 12/04/19 CHIEF COMPLAINT: Nausea vomiting HISTORY OF PRESENT ILLNESS: Patient examined at the bedside. Patient states she feels much better this morning. She denies abdominal pain. NG tube has been removed. She is tolerating clear liquid diet. She reports passing flatus and having a bowel movement this morning. Vital signs stable. She is afebrile. PHYSICAL EXAM: VITAL SIGNS: Reviewed. GENERAL: Well-developed in no acute distress. HEENT: No sclera icterus. Extraocular movements grossly intact. Moist buccal mucosa. Head is atraumatic, normocephalic. ABDOMEN: Soft. Nondistended. Nontender. NEUROLOGIC: Alert and oriented. Cranial nerves II through XII grossly intact. ASSESSMENT: 1. Small bowel obstruction PLAN: -Advance diet -If patient tolerates, may be discharged home from a surgical standpoint Nurse practitioner note has been reviewed by physician. Signing provider agrees with the documented findings, assessment, and plan of care. Objective - Vital Signs Vital signs: Vital Signs Temp 97.9 F 12/04/19 05:00 Pulse 78 12/04/19 05:00 Resp 18 12/04/19 05:00 BP 156/77 12/04/19 05:00 Pulse Ox 96 12/04/19 05:00 Intake & Output 12/03/19 12/04/19 12/04/19 18:59 06:59 18:59 Intake Total 1280 1150 Output Total 550 Balance 730 1150 Intake: Intake, IV Titration 800 1150 Amount Sodium Chloride 0.9% 1, 800 1150 000 ml @ 100 mls/hr IV . Q10H [facility] Rx#:[id number] Oral 480 Output: Gastric Drainage 550 Other: Voiding Method Toilet # Voids 3 1 - Labs CBC & Chem 7: 12/01/19 20:05 12/04/19 05:48 Labs: Abnormal Lab Results - Last 24 Hours (Table) 12/04/19 12/04/19 Range/Units 05:48 07:03 Chloride 110 H (98-107) mmol/L Carbon Dioxide 21 L (22-30) mmol/L POC Glucose (mg/dL) 108 H (75-99) mg/dL Microbiology - Last 24 Hours (Table) 12/01/19 20:05 Urine Culture - Final Urine,Voided Escherichia coli
[2019-12-04 11:36] LABS: Glucose,Whole Blood 83 mg/dL (75-99)
[2019-12-04 12:09] VITALS: BP 162/80; PULSE 71
--- NOTE | 2019-12-04 19:51 | P.DS ---
Providers Date of admission: 12/01/19 21:42 Expected date of discharge: 12/04/19 Attending physician: Jim Molina Consults: 12/01/19 22:24 Consult Physician Stat Consulting Provider: Bonifacio Squires Consult Reason/Comments: partial small bowel obstruction Do you want consulting provider notified?: Yes Primary care physician: Damir Hernandez [facility] Course: Chief Complaint: Abdominal pain nausea vomiting History of presenting complaint: This is a 74-year-old patient of Dr. Hernandez. Chronic stable medical conditions include diabetes, fibromyalgia, GERD, hyperlipidemia, hypertension, osteoarthritis, restless leg syndrome, hiatal hernia, many years, peripheral neuropathy, DJD, some hard of hearing. Patient started of yesterday abdominal pain followed by nausea vomiting all day. Had a small bowel movement yesterday. No fever no chills. Presents to the ER. Found to have a small bowel obstruction. NG tube was placed. Feeling a bit better this morning. Still having tenderness in the abdomen. Had a very small bowel movement. No further fever and chills. Admitted with-small bowel obstruction. NG tube to suction place. Removed Today-no abdominal pain. Passed flatus. Started liquid diet. Seen by surgery. Cleared for discharge Consultation: Dr. Squires from surgery Physical examination: VITAL SIGNS: 97.9, 78, 18, 156/77, 96% on room air GENERAL: Sitting up in a chair, comfortable EYES: Pupils equal. Conjunctiva normal. HEENT: External appearance of nose and ears normal, oral cavity normal, NG tube discontinued NECK: JVD not raised; masses not palpable. HEART: First and second heart sounds are normal; no edema. LUNGS: Respiratory rate normal; clear to auscultation. ABDOMEN: Soft, nontender, no guarding to 60, liver spleen not palpable, no masses palpable. PSYCH: Alert and oriented x3; mood and affect normal. MUSCULOSKELETAL: Evidence of OA INVESTIGATIONS, reviewed in the clinical context: Potassium 4.1 Previous testing White count 7.7 hemoglobin 12.5 potassium 4.0 crit 0.86 EKG tracing personally reviewed by me-normal sinus rhythm Computed tomography scan of the abdomen-dilated small bowel loops with obstruction questionably the distal jejunal area. Large hiatal hernia, diverticulosis, hepatomegaly Assessment: -Acute small bowel obstruction possibly from adhesions, with NG tube in place- resolved -Diabetes mellitus type 2 -Chronic fibromyalgia -GERD -Hyperlipidemia -Essential hypertension -Primary osteoarthritis -Hiatal hernia -Restless leg syndrome -Chronic diverticulosis-asymptomatic -Peripheral neuropathy Disposition: Home Patient Condition at Discharge: Stable Plan - Discharge Summary Discharge Rx Participant: No New Discharge Prescriptions: Continue Losartan [Cozaar] 75 mg PO QAM Furosemide [Lasix] 20 mg PO Q48H Fenofibrate [Lofibra] 160 mg PO QAM Evolocumab [Repatha Syringe] 140 mg SQ Q14D Cholecalciferol [Vitamin D3 (25 Mcg = 1000 Iu)] 1,000 unit PO DAILY Gabapentin [Neurontin] 300 mg PO BID HYDROcodone/APAP 7.5-325MG [[place] 7.5-325] 1 tab PO Q8H PRN PRN Reason: Pain Omeprazole [PriLOSEC] 20 mg PO DAILY Pramipexole Di-HCl [Mirapex] 1.5 mg PO HS Discharge Medication List Losartan [Cozaar] 75 mg PO QAM 01/18/18 [History] Furosemide [Lasix] 20 mg PO Q48H 08/03/18 [History] Evolocumab [Repatha Syringe] 140 mg SQ Q14D 11/17/18 [History] Fenofibrate [Lofibra] 160 mg PO QAM 11/17/18 [History] Cholecalciferol [Vitamin D3 (25 Mcg = 1000 Iu)] 1,000 unit PO DAILY 12/01/19 [History] Gabapentin [Neurontin] 300 mg PO BID 12/01/19 [History] HYDROcodone/APAP 7.5-325MG [[place] 7.5-325] 1 tab PO Q8H PRN 12/01/19 [History] Omeprazole [PriLOSEC] 20 mg PO DAILY 12/01/19 [History] Pramipexole Di-HCl [Mirapex] 1.5 mg PO HS 12/01/19 [History] Follow up Appointment(s)/Referral(s): Damir Hernandez DO [Primary Care Provider] - 1-2 days (Call and set up a follow up appointment .) Patient Instructions/Handouts: Pancreatitis (DC) Activity/Diet/Wound Care/Special Instructions: diet advance as tolerated Activity limited until seen by Dr. Stafford Disposition: HOME SELF-CARE
== END 2019-12-04 15:05 | disposition home or self-care (01) | DRG 390 ==
LOC: EC 19:10 → 5NMEDONC 21:42
PROVIDERS: ADMIT Hospitalist; ATTEND Hospitalist
DX: K56.50 Intestinal adhesions [bands], unspecified as to partial versus complete obstruction (principal); E11.42 Type 2 diabetes mellitus with diabetic polyneuropathy; E78.5 Hyperlipidemia, unspecified; G25.81 Restless legs syndrome; H91.90 Unspecified hearing loss, unspecified ear; I10 Essential (primary) hypertension; K21.9 Gastro-esophageal reflux disease without esophagitis; K57.90 Diverticulosis of intestine, part unspecified, without perforation or abscess without bleeding; M19.91 Primary osteoarthritis, unspecified site; M79.7 Fibromyalgia; Z79.899 Other long term (current) drug therapy; Z80.0 Family history of malignant neoplasm of digestive organs; Z85.828 Personal history of other malignant neoplasm of skin; Z87.891 Personal history of nicotine dependence; Z90.710 Acquired absence of both cervix and uterus; Z96.1 Presence of intraocular lens; Z96.653 Presence of artificial knee joint, bilateral; Z87.01 Personal history of pneumonia (recurrent); Z98.42 Cataract extraction status, left eye; Z98.41 Cataract extraction status, right eye; Z88.0 Allergy status to penicillin; Z88.8 Allergy status to other drugs, medicaments and biological substances; Z91.011 Allergy to milk products
CPT/HCPCS: 36415; 74019; 74177; 80048; 80053; 81001; 83605; 83690; 84484; 85025; 87077; 87086; 87186; 93005; 96361; 96374; 96375; 99285

== ENCOUNTER → 2020-04-21 | Outpatient (CLI) | payer MEDICARE ==
--- NOTE | 2020-04-21 11:09 | XR ---
EXAMINATION TYPE: XR chest 2V DATE OF EXAM: 04/21/2020 COMPARISON: Chest x-ray May 17, 2019. HISTORY: Shortness of breath and cough. TECHNIQUE: Frontal and lateral views of the chest are obtained. FINDINGS: There is some chronic parenchymal change without suspicious new focal air space opacity, p leural effusion, or pneumothorax seen. The cardiac silhouette size is stable and upper limits of nor mal with atherosclerotic change aortic knob. The osseous structures are somewhat demineralized. IMPRESSION: Chronic changes without acute pulmonary process.
== END | disposition home or self-care (01) ==
LOC: RADXRMAIN 10:37
PROVIDERS: ATTEND Family Medicine
DX: J98.4 Other disorders of lung (principal)
CPT/HCPCS: 71046

== ENCOUNTER 2020-05-05 13:41 | Emergency (ER) | payer MEDICARE ==
[2020-05-05 13:50] VITALS: RESP 18
[2020-05-05] MEDS ORDERED: MORPHINE SULFATE 4 MG/ML SYRINGE IV STA (14:00)
[2020-05-05] MEDS ORDERED: ONDANSETRON 4 MG/2 ML VIAL IVP STA (14:00)
[2020-05-05] MEDS ORDERED: SODIUM CHLORIDE 0.9% 1,000 ML IV STA (14:00)
[2020-05-05] MEDS ORDERED: SODIUM CHLORIDE 0.9% 500 ML 500 ML IV STA (14:00)
--- NOTE | 2020-05-05 14:11 | ED ---
Headache HPI - General Chief Complaint: Headache Stated Complaint: headache, vomiting Time Seen by Provider: 05/05/20 13:49 Source: RN notes reviewed, old records reviewed Mode of arrival: wheelchair Limitations: no limitations - History of Present Illness Initial Comments: This is a 75-year-old female DF for evaluation patient Dese for evaluation of he adache headache with persistent nausea vomiting. No trauma noted. No fevers. She also blood pressure has been running mildly elevated as of late. Otherwise no significant issues or symptoms. MD Complaint: headache, other (Elevated blood pressure) -: days(s) Onset Description: gradual Severity: moderate Severity scale (1-10): 4 Quality: throbbing, pulsatile Consistency: constant Improves With: nothing Worsens With: none Context: occurred at rest Associated Symptoms: nausea, vomiting, weakness Treatments Prior to Arrival: none - Related Data Home Medications Medication Instructions Recorded Confirmed Losartan [Cozaar] 75 mg PO QAM 01/18/18 12/01/19 Furosemide [Lasix] 20 mg PO Q48H 08/03/18 12/01/19 Evolocumab [Repatha Syringe] 140 mg SQ Q14D 11/17/18 12/01/19 Fenofibrate [Lofibra] 160 mg PO QAM 11/17/18 12/01/19 Cholecalciferol [Vitamin D3 (25 1,000 unit PO DAILY 12/01/19 12/01/19 Mcg = 1000 Iu)] Gabapentin [Neurontin] 300 mg PO BID 12/01/19 12/01/19 HYDROcodone/APAP 7.5-325MG [[place] 1 tab PO Q8H PRN 12/01/19 12/01/19 7.5-325] Omeprazole [PriLOSEC] 20 mg PO DAILY 12/01/19 12/01/19 Pramipexole Di-HCl [Mirapex] 1.5 mg PO HS 12/01/19 12/01/19 Allergies Allergy/AdvReac Type Severity Reaction Status Date / Time Penicillins Allergy Rash/Hives Verified 05/05/20 13:50 [id number] Reductase Allergy Rash/Hives Verified 05/05/20 13:50 Inhibitor adhesive AdvReac Rash/Hives Verified 05/05/20 13:50 aspirin AdvReac STOMACH Verified 05/05/20 13:50 UPSET/HEARTBURN Milk Containing Products AdvReac Nausea Verified 05/05/20 13:50 [Dairy] STERI STRIP Allergy Rash/Hives/ Uncoded 05/05/20 13:50 ITCHING Review of Systems ROS Statement: Those systems with pertinent positive or pertinent negative responses have been documented in the HPI. ROS Other: All systems not noted in ROS Statement are negative. Past Medical History Past Medical History: Cancer, Chest Pain / Angina, Diabetes Mellitus, Eye Disorder, Fibromyalgia, GERD/Reflux, Hearing Disorder / Deafness, Hyperlipidemia, Hypertension, Osteoarthritis (OA), Pneumonia Additional Past Medical History / Comment(s): Intestinal adhesions, RESTLESS LEG, Hiatal HERNIA, MENIERES, DIVERTICULITIS, GLAUCOMA R eye, (NOT CURRENTLY ON ANY MEDICATIONS FOR) NEUROPATHY bilateral legs, hx anemia. Irregular heartbeat. Degenerative Disc Disease. Difficulty hearing certain tones. gout, skin cancer History of Any Multi-Drug Resistant Organisms: None Reported Past Surgical History: Appendectomy, Bladder Surgery, Bowel Resection, Cholecystectomy, Ear Surgery, Heart Catheterization, Hernia Repair, Hysterectomy, Joint Replacement, Orthopedic Surgery, Tonsillectomy, Tubal Ligation Additional Past Surgical History / Comment(s): Direct Microlaryngoscopy and removal left vocal cord mass.RIGHT BREAST BX, Diagnostic laparoscopy with lysis of adhesions. LUBNA KNEE REPLACEMENT, EYE surgery for cataracts bilaterally with lens implants, TUBE IN RIGHT EAR FOR MENIERES, LEFT THUMB SURGERY, hiatal hernia repair, abdominal ventral hernia repair. egd-10/08/18, esophagus stretched x3, spur removal left heel Past Anesthesia/Blood Transfusion Reactions: Motion Sickness, Postoperative Gus sea & Vomiting (PONV) Additional Past Anesthesia/Blood Transfusion Reaction / Comment(s): MENIERE'S, STATES "DIFF INTUBATION-JAW LOCKED UP AFTER A PREVIOUS INTUBATION". "scraped vocal cord-evaluated by Dr Smart" Past Psychological History: No Psychological Hx Reported Smoking Status: Never smoker Past Alcohol Use History: Rare Past Drug Use History: None Reported - Past Family History Brother(s) Family Medical History: Cancer Mother Family Medical History: Cancer, CVA/TIA, Deep Vein Thrombosis (DVT) Additional Family Medical History / Comment(s): STOMACH CANCER Father Family Medical History: No Reported History Additional Family Medical History / Comment(s): COMMITTED SUICIDE General Exam Limitations: no limitations General appearance: alert, in no apparent distress Head exam: Present: atraumatic, normocephalic, normal inspection Eye exam: Present: normal appearance, PERRL, EOMI. Absent: scleral icterus, conjunctival injection, periorbital swelling ENT exam: Present: normal exam, mucous membranes moist Neck exam: Present: normal inspection. Absent: tenderness, meningismus, lymphadenopathy Respiratory exam: Present: normal lung sounds bilaterally. Absent: respiratory distress, wheezes, rales, rhonchi, stridor Cardiovascular Exam: Present: regular rate, normal rhythm, normal heart sounds. Absent: systolic murmur, diastolic murmur, rubs, gallop, clicks GI/Abdominal exam: Present: soft, normal bowel sounds. Absent: distended, tenderness, guarding, rebound, rigid Extremities exam: Present: normal inspection, full ROM, normal capillary refill. Absent: tenderness, pedal edema, joint swelling, calf tenderness Back exam: Present: normal inspection Neurological exam: Present: alert, oriented X3, CN II-XII intact Psychiatric exam: Present: normal affect, normal mood Skin exam: Present: warm, dry, intact, normal color. Absent: rash Course Vital Signs 05/05/20 05/05/20 13:49 15:45 Temperature 98.2 F Pulse Rate 76 71 Respiratory 18 18 Rate Blood Pressure 165/89 144/78 O2 Sat by Pulse 98 95 Oximetry - Reevaluation(s) Reevaluation #1: 05/05/20 14:10 Medical records reviewed Reevaluation #2: 05/05/20 14:51 Patient headache is improved Reevaluation #3: 05/05/20 16:41 Patient has some improvement in character of her headache but still admits to headache currently Medical Decision Making - Medical Decision Making 75 female DEL with headache, but elevated blood pressure blood pressure not elevated here in the ER new blood pressure medication started yesterday patient is CT WITHOUT contrast and with contrast here both negative symptoms for 5 days no neurological lanes, at this point patient will be discharged home - Lab Data Result diagrams: 05/05/20 14:29 05/05/20 14:29 Lab Results 05/05/20 05/05/20 05/05/20 Range/Units 14:29 14:29 14:29 WBC 6.1 (3.8-10.6) k/uL RBC 4.61 (3.80-5.40) m/uL Hgb 12.3 (11.4-16.0) gm/dL Hct 37.7 (34.0-46.0) % MCV 81.8 (80.0-100.0) fL MCH 26.8 (25.0-35.0) pg MCHC 32.7 (31.0-37.0) g/dL RDW 14.5 (11.5-15.5) % Plt Count 209 (150-450) k/uL Neutrophils % 63 % Lymphocytes % 30 % Monocytes % 3 % Eosinophils % 3 % Basophils % 0 % Neutrophils # 3.8 (1.3-7.7) k/uL Lymphocytes # 1.8 (1.0-4.8) k/uL Monocytes # 0.2 (0-1.0) k/uL Eosinophils # 0.2 (0-0.7) k/uL Basophils # 0.0 (0-0.2) k/uL PT 10.3 (9.0-12.0) sec INR 1.0 (<1.2) APTT 21.9 L (22.0-30.0) sec Sodium 139 (137-145) mmol/L Potassium 3.7 (3.5-5.1) mmol/L Chloride 104 (98-107) mmol/L Carbon Dioxide 26 (22-30) mmol/L Anion Gap 9 mmol/L BUN 10 (7-17) mg/dL Creatinine 0.61 (0.52-1.04) mg/dL Est GFR (CKD-EPI)AfAm >90 (>60 ml/min/1.73 sqM) Est GFR (CKD-EPI)NonAf >90 (>60 ml/min/1.73 sqM) Glucose 103 H (74-99) mg/dL Calcium 9.3 (8.4-10.2) mg/dL Phosphorus 3.8 (2.5-4.5) mg/dL Magnesium 1.2 L (1.6-2.3) mg/dL Total Bilirubin 0.5 (0.2-1.3) mg/dL AST 29 (14-36) U/L ALT 25 (4-34) U/L Alkaline Phosphatase 76 (38-126) U/L Creatine Kinase 48 (30-135) U/L Troponin I (0.000-0.034) ng/mL NT-Pro-B Natriuret Pep pg/mL Total Protein 6.9 (6.3-8.2) g/dL Albumin 4.4 (3.5-5.0) g/dL Urine Color Urine Appearance (Clear) Urine pH (5.0-8.0) Ur Specific [place] (1.001-1.035) Urine Protein (Negative) Urine Glucose (UA) (Negative) Urine Ketones (Negative) Urine Blood (Negative) Urine Nitrite (Negative) Urine Bilirubin (Negative) Urine Urobilinogen (<2.0) mg/dL Ur Leukocyte Esterase (Negative) 05/05/20 05/05/20 05/05/20 Range/Units 14:29 14:29 14:42 WBC (3.8-10.6) k/uL RBC (3.80-5.40) m/uL Hgb (11.4-16.0) gm/dL Hct (34.0-46.0) % MCV (80.0-100.0) fL MCH (25.0-35.0) pg MCHC (31.0-37.0) g/dL RDW (11.5-15.5) % Plt Count (150-450) k/uL Neutrophils % % Lymphocytes % % Monocytes % % Eosinophils % % Basophils % % Neutrophils # (1.3-7.7) k/uL Lymphocytes # (1.0-4.8) k/uL Monocytes # (0-1.0) k/uL Eosinophils # (0-0.7) k/uL Basophils # (0-0.2) k/uL PT (9.0-12.0) sec INR (<1.2) APTT (22.0-30.0) sec Sodium (137-145) mmol/L Potassium (3.5-5.1) mmol/L Chloride (98-107) mmol/L Carbon Dioxide (22-30) mmol/L Anion Gap mmol/L BUN (7-17) mg/dL Creatinine (0.52-1.04) mg/dL Est GFR (CKD-EPI)AfAm (>60 ml/min/1.73 sqM) Est GFR (CKD-EPI)NonAf (>60 ml/min/1.73 sqM) Glucose (74-99) mg/dL Calcium (8.4-10.2) mg/dL Phosphorus (2.5-4.5) mg/dL Magnesium (1.6-2.3) mg/dL Total Bilirubin (0.2-1.3) mg/dL AST (14-36) U/L ALT (4-34) U/L Alkaline Phosphatase (38-126) U/L Creatine Kinase (30-135) U/L Troponin I <0.012 (0.000-0.034) ng/mL NT-Pro-B Natriuret Pep 256 pg/mL Total Protein (6.3-8.2) g/dL Albumin (3.5-5.0) g/dL Urine Color Light Yellow Urine Appearance Clear (Clear) Urine pH 5.0 (5.0-8.0) Ur Specific [place] 1.014 (1.001-1.035) Urine Protein Negative (Negative) Urine Glucose (UA) Negative (Negative) Urine Ketones Negative (Negative) Urine Blood Negative (Negative) Urine Nitrite Negative (Negative) Urine Bilirubin Negative (Negative) Urine Urobilinogen <2.0 (<2.0) mg/dL Ur Leukocyte Esterase Negative (Negative) - EKG Data -: EKG Interpreted by Me (EKG is sinus rhythm 71 NH 170 QRS 82 QTC 415) - Radiology Data Radiology results: report reviewed (CT brain CT angios head neck is negative for acute disease), image reviewed Disposition Clinical Impression: Migraine headache, Headache Disposition: HOME SELF-CARE Condition: Good Instructions (If sedation given, give patient instructions): Acute Headache (ED) Is patient prescribed a controlled substance at d/c from ED?: No Referrals: Damir Hernandez DO [Primary Care Provider] - 1-2 days
[2020-05-05 14:53] LABS: Basophils % (A) 0 %; Eosinophils # (A) 0.2 k/uL (0-0.7); Eosinophils % (A) 3 %; HCT 37.7 % (34.0-46.0); HGB 12.3 gm/dL (11.4-16.0); Lymphocytes # (A) 1.8 k/uL (1.0-4.8); Lymphocytes % (A) 30 %; MCH 26.8 pg (25.0-35.0); MCHC 32.7 g/dL (31.0-37.0); MCV 81.8 fL (80.0-100.0); Mean Platelet Volume 8.3; Monocytes # (A) 0.2 k/uL (0-1.0); Monocytes % (A) 3 %; Neutrophils # (A) 3.8 k/uL (1.3-7.7); Neutrophils % (A) 63 %; Platelet Count 209 k/uL (150-450); RBC 4.61 m/uL (3.80-5.40); RDW 14.5 % (11.5-15.5); WBC 6.1 k/uL (3.8-10.6)
[2020-05-05 14:57] LABS: ALT 25 U/L (4-34); AST 29 U/L (14-36); African American GFR (CKD) >90 (>60 ml/min/1.73 sqM); Albumin 4.4 g/dL (3.5-5.0); Alkaline Phosphatase 76 U/L (38-126); Anion Gap 9 mmol/L; Blood Urea Nitrogen 10 mg/dL (7-17); Calcium 9.3 mg/dL (8.4-10.2); Carbon Dioxide 26 mmol/L (22-30); Chloride 104 mmol/L (98-107); Creatine Kinase 48 U/L (30-135); Glucose 103 mg/dL (74-99); Magnesium 1.2 mg/dL (1.6-2.3); Non-African American GFR(CKD) >90 (>60 ml/min/1.73 sqM); Phosphorus 3.8 mg/dL (2.5-4.5); Potassium 3.7 mmol/L (3.5-5.1); Sodium 139 mmol/L (137-145); Total Bilirubin 0.5 mg/dL (0.2-1.3); Total Protein 6.9 g/dL (6.3-8.2)
[2020-05-05 15:04] LABS: Appearance,Urine Clear (Clear); Bilirubin,Urine Negative (Negative); Blood,Urine Negative (Negative); Color,Urine Light Yellow; Glucose,Urine (UA) Negative (Negative); Ketones,Urine Negative (Negative); Leukocyte Esterase,Urine Negative (Negative); Nitrite,Urine Negative (Negative); Protein,Urine Negative (Negative); Specific Gravity,Urine 1.014 (1.001-1.035); Urobilinogen,Urine <2.0 mg/dL (<2.0)
[2020-05-05 15:18] LABS: Prothrombin Time 10.3 sec (9.0-12.0)
--- NOTE | 2020-05-05 15:19 | CT ---
EXAMINATION TYPE: CT brain wo con DATE OF EXAM: 05/05/2020 HISTORY: Dizziness, Nausea and vomiting with multiple injuries in the past week. CT DLP: 1084.4 mGycm. Automated Exposure Control for Dose Reduction was Utilized. TECHNIQUE: CT scan of the head is performed without contrast. COMPARISON: 08/26/2013 CT brain FINDINGS: There is no acute intracranial hemorrhage, midline shift, or mass effect identified. The ventricles, sulci, and cisterns are normal in size and configuration. No extra-axial fluid collection. Bones and extracranial soft tissues are intact. The globes are gross ly symmetric with cataract postsurgical changes. Visualized sinuses and mastoid air cells are clear. There is redemonstrated postsurgical changes to the right mastoid air cells. IMPRESSION: No acute intrarenal hemorrhage, midline shift, or mass effect.
[2020-05-05 15:23] LABS: Partial Thromboplastin Time 21.9 sec (22.0-30.0)
[2020-05-05] MEDS ORDERED: diphenhydrAMINE 50 MG/ML 1 ML VIAL IVP STA (15:36)
[2020-05-05] MEDS ORDERED: MORPHINE SULFATE 4 MG/ML SYRINGE IVP STA (15:36)
--- NOTE | 2020-05-05 16:39 | CT ---
EXAMINATION TYPE: CT angio head neck DATE OF EXAM: 05/05/2020 HISTORY: headache COMPARISON: CT brain without contrast 05/05/2020. CT DLP: 388.4 mGycm. Automated Exposure Control for Dose Reduction was Utilized. TECHNIQUE: CTA scan of the neck is performed with IV Contrast, patient injected with 65 mL of Isovue 370, axial images are obtained, coronal and sagittal reformatted images are reviewed. Three-D recons tructed images are created on an independent workstation and reviewed. FINDINGS: Carotid/Vascular Structures: No evidence of occlusion, significant stenosis, aneurysm, or dissection of the neck. Codominant vertebral basilar system. Cervical of [place]: Vertebral basilar system appears normal. Posterior cerebral vasculature is unrema rkable. Internal carotid arteries bifurcate normally into A1 and M1 segments. A2 segments are normal. The anterior communicating artery is patent. Left Posterior communicating artery is patent. Right po sterior communicating artery is diminutive or congenitally absent. Other: Right thyroid gland is heterogenous with hypodense nodule and calcified nodule. IMPRESSION: 1. No significant arterial abnormality of the head or neck. 2. Heterogenous right thyroid gland with hypodense and calcified nodules. Recommend nonemergent thyro id ultrasound or correlation with outside available imaging.
[2020-05-05 17:16] VITALS: BP 139/82; PULSE 72; TEMP 97.9
== END 2020-05-05 17:16 | disposition home or self-care (01) ==
LOC: EC 13:41
DX: G43.909 Migraine, unspecified, not intractable, without status migrainosus (principal); E11.9 Type 2 diabetes mellitus without complications; I10 Essential (primary) hypertension; E78.5 Hyperlipidemia, unspecified; K21.9 Gastro-esophageal reflux disease without esophagitis; Z79.899 Other long term (current) drug therapy; Z88.0 Allergy status to penicillin; Z88.6 Allergy status to analgesic agent; Z88.8 Allergy status to other drugs, medicaments and biological substances; Z91.011 Allergy to milk products; Z91.048 Other nonmedicinal substance allergy status; Z96.653 Presence of artificial knee joint, bilateral; Z85.828 Personal history of other malignant neoplasm of skin
CPT/HCPCS: 36415; 93005; 83880; 80053; 82550; 83735; 84100; 84484; 85025; 85610; 85730; 81003; 70496; 70450; 70498; 99284; 96374; 96375 ×2; 96376; 96361 ×3; J2270; J1200; J2405; Q9967

== ENCOUNTER → 2020-06-12 | Outpatient (CLI) | payer MEDICARE ==
--- NOTE | 2020-06-12 12:13 | BD ---
EXAMINATION TYPE: Axial Bone Density DATE OF EXAM: 06/12/2020 COMPARISON: NONE CLINICAL HISTORY: 75 YR OLD FEMALE.....ICD-10 CODE: N95.9 MENOPAUSAL DISORDER Height: 61.2 Weight: 176 FRAX RISK QUESTIONS: Alcohol (3 or more units per day): History of Fracture in Adulthood: YES Secondary Osteoporosis: YES 3. Menopause before 45: YES RISK FACTORS HISTORY OF: HX OF TOE FX AN ADULT Diet low in dairy products/other sources of calcium: YES, LOW Postmenopausal woman: YES AT ABOUT AGE 32 TOTAL HYST Lost more than 2 inches in height since high school: YES Hyperparathyroidism: NO Adrenal Insufficiency: NO MEDICATIONS: Additional Medications: BP MEDS, ORAL DIABETIC MEDS, REFLUX MEDS, CHOLESTEROL INJECTION AND CHOLESTER OL MEDS, VIT D Additional History: HYPERTENSION, DIABETES, REFLUX, CHOLESTEROL EXAM MEASUREMENTS: Bone mineral densitometry was performed using the [employer] System. Bone mineral density as measured about the Lumbar spine is: ----- L1-L4(G/cm2): 1.297 T Score Values are as follows: ----- L1: 1.1 ----- L2: 1.1 ----- L3: 0.6 ----- L4: 1.0 ----- L1-L4: 1.0 Bone mineral density FIRST BONE DENSITY STUDY AT [facility] Bone mineral density about the R hip (g/cm2): 1.059 Bone mineral density about the L hip (g/cm2): 1.083 T Score values are as follows: -----R Neck: 0.3 -----L Neck: 0.3 -----R Total: 0.4 -----L Total: 0.6 Bone mineral density FIRST STUDY AT [facility] FRAX%s: THERE IS A 10.5% CHANCE FOR A MAJOR OSTEOPOROTIC FX AND A 0.6% FOR HIP....PROBABILITY FOR F X IN 10 YRS TIME IMPRESSION: Normal (Values between +1 and -1 indicate normal bone mass). Consider repeating this study in 5 year s or sooner if there is some new clinical indication. NOTE: T-SCORE=SD OF THE YOUNG ADULT MEAN.
== END | disposition home or self-care (01) ==
LOC: RADBDWWP 09:12
PROVIDERS: ATTEND Family Medicine
DX: N95.9 Unspecified menopausal and perimenopausal disorder (principal)
CPT/HCPCS: 77080

== ENCOUNTER → 2020-07-20 | Outpatient (CLI) | payer MEDICARE ==
--- NOTE | 2020-08-06 12:20 | EM ---
14 Day Event Monitor Note: Description: Patient wore event monitor for a total of 14 days from 07/20/2020 until 08/02/2020. There is 89% compliance with wearing monitor. Findings: Patient's baseline monitor shows normal sinus rhythm. There were a total of 57 patient activated and automatically detected dependence. Patient activated events were for symptoms of heart racing, tired and weakness, shortness of breath, slow pulse which all corresponded to normal sinus rhythm. Patient did have 2 episodes of short 9 beat runs of supraventricular tachycardia at a rate of approximately 160 beats per minute, one of which was asymptomatic and the other which she had symptoms of dizziness, lightheadedness. Both SVT episodes occurred on 07/25/2020. There was no atrial fibrillation, atrial flutter, ventricular tachycardia noted. There were no pauses greater than 2 seconds. Conclusions: 1. Normal sinus rhythm with majority of patient activated events corresponding with sinus rhythm 2. 2 brief 9 beat runs of SVT, one of which corresponded with symptoms of dizziness, lightheadedness. [facility]
== END | disposition home or self-care (01) ==
LOC: RADECHMAIN 11:43
PROVIDERS: ATTEND Family Medicine
DX: I47.1 Supraventricular tachycardia (principal)
CPT/HCPCS: 93270

== ENCOUNTER 2020-09-05 18:22 | Emergency (ER) | payer MEDICARE ==
[2020-09-05 18:32] VITALS: TEMP 97.9
[2020-09-05] MEDS ORDERED: KETOROLAC 15 MG/ML 1 ML VIAL IVP STA (18:40)
[2020-09-05] MEDS ORDERED: SODIUM CHLORIDE 0.9% 1,000 ML IV STA ×2 (18:40)
--- NOTE | 2020-09-05 18:44 | ED ---
Abdominal Pain HPI - General Chief Complaint: Abdominal Pain Stated Complaint: abd pain Time Seen by Provider: 09/05/20 18:33 Source: patient, RN notes reviewed Mode of arrival: wheelchair Limitations: no limitations - History of Present Illness Initial Comments: This is a 75-year-old female history of a "cholecystectomy in the past as well as a small bowel obstruction with a portion of bowel removed years ago who presents with complaints of the onset of sharp midepigastric pain around 2 PM today. She states is currently 9/10 severity associated with nausea no diarrhea constipation no fevers chills or sweats she states does get worse with movement. She thought it might be related to a chicken salad that she earlier with her family who ate the same thing did not get sick. MD Complaint: abdominal pain - Related Data Home Medications Medication Instructions Recorded Confirmed Evolocumab [Repatha Syringe] 140 mg SQ Q14D 11/17/18 09/05/20 Fenofibrate [Lofibra] 160 mg PO DAILY 11/17/18 09/05/20 Gabapentin [Neurontin] 300 mg PO HS 12/01/19 09/05/20 HYDROcodone/APAP 7.5-325MG [[place] 1 tab PO BID@0900,1400 12/01/19 09/05/20 7.5-325] Omeprazole [PriLOSEC] 20 mg PO DAILY 12/01/19 09/05/20 Pramipexole Di-HCl [Mirapex] 1.5 mg PO HS 12/01/19 09/05/20 Clotrimazole/Betamethasone Dip 1 applic TOPICAL BID 09/05/20 09/05/20 [Lotrisone Cream] HYDROcodone/APAP 7.5-325MG [[place] 0.5 tab PO HS 09/05/20 09/05/20 7.5-325] Isosorbide Mononitrate ER [Imdur] 30 mg PO DAILY 09/05/20 09/05/20 Losartan/Hydrochlorothiazide 1 tab PO DAILY 09/05/20 09/05/20 [Hyzaar 100-25 Tablet] Metoprolol Succinate [Toprol XL] 25 mg PO HS 09/05/20 09/05/20 Nortriptyline HCl [Pamelor] 10 mg PO HS 09/05/20 09/05/20 metFORMIN HCL [Glucophage] 1,000 mg PO BID 09/05/20 09/05/20 traZODone HCL [Desyrel] 50 mg PO HS 09/05/20 09/05/20 Allergies Allergy/AdvReac Type Severity Reaction Status Date / Time Penicillins Allergy Rash/Hives Verified 09/05/20 19:35 Sbleiqm-Ssk-Ovl Reductase Allergy Rash/Hives Verified 09/05/20 19:35 Inhibitor adhesive AdvReac Rash/Hives Verified 09/05/20 19:35 aspirin AdvReac STOMACH Verified 09/05/20 19:35 UPSET/HEARTBURN Milk Containing Products AdvReac Nausea Verified 09/05/20 19:35 [Dairy] STERI STRIP Allergy Rash/Hives/ Uncoded 09/05/20 19:35 ITCHING Review of Systems ROS Statement: Those systems with pertinent positive or pertinent negative responses have been documented in the HPI. ROS Other: All systems not noted in ROS Statement are negative. Past Medical History Past Medical History: Cancer, Chest Pain / Angina, Diabetes Mellitus, Eye Disorder, Fibromyalgia, GERD/Reflux, Hearing Disorder / Deafness, Hyperlipidemia, Hypertension, Osteoarthritis (OA), Pneumonia Additional Past Medical History / Comment(s): Intestinal adhesions, RESTLESS LEG, Hiatal HERNIA, MENIERES, DIVERTICULITIS, GLAUCOMA R eye, (NOT CURRENTLY ON ANY MEDICATIONS FOR) NEUROPATHY bilateral legs, hx anemia. Irregular heartbeat. Degenerative Disc Disease. Difficulty hearing certain tones. gout, skin cancer, svt History of Any Multi-Drug Resistant Organisms: None Reported Past Surgical History: Appendectomy, Bladder Surgery, Bowel Resection, Cholecystectomy, Ear Surgery, Heart Catheterization, Hernia Repair, Hysterectomy, Joint Replacement, Orthopedic Surgery, Tonsillectomy, Tubal Ligation Additional Past Surgical History / Comment(s): Direct Microlaryngoscopy and rem oval left vocal cord mass.RIGHT BREAST BX, Diagnostic laparoscopy with lysis of adhesions. LUBNA KNEE REPLACEMENT, EYE surgery for cataracts bilaterally with lens implants, TUBE IN RIGHT EAR FOR MENIERES, LEFT THUMB SURGERY, hiatal hernia repair, abdominal ventral hernia repair. egd-10/08/18, esophagus stretched x3, spur removal left heel Past Anesthesia/Blood Transfusion Reactions: Motion Sickness, Postoperative Nausea & Vomiting (PONV) Additional Past Anesthesia/Blood Transfusion Reaction / Comment(s): KAROIERAnton'S, STATES "DIFF INTUBATION-JAW LOCKED UP AFTER A PREVIOUS INTUBATION". "scraped vocal cord-evaluated by Dr Smart" Past Psychological History: No Psychological Hx Reported Smoking Status: Never smoker Past Alcohol Use History: Rare Past Drug Use History: None Reported - Past Family History Brother(s) Family Medical History: Cancer Mother Family Medical History: Cancer, CVA/TIA, Deep Vein Thrombosis (DVT) Additional Family Medical History / Comment(s): STOMACH CANCER Father Family Medical History: No Reported History Additional Family Medical History / Comment(s): COMMITTED SUICIDE General Exam - General Exam Comments Initial Comments: This is a well-developed well-nourished awake alert oriented 3 female Limitations: no limitations General appearance: alert, anxious, in distress Head exam: Present: atraumatic, normocephalic, normal inspection Eye exam: Present: normal appearance, PERRL, EOMI. Absent: scleral icterus, conjunctival injection, periorbital swelling ENT exam: Present: normal exam, mucous membranes moist Neck exam: Present: normal inspection. Absent: tenderness, meningismus, lymphadenopathy Respiratory exam: Present: normal lung sounds bilaterally. Absent: respiratory distress, wheezes, rales, rhonchi, stridor Cardiovascular Exam: Present: regular rate, normal rhythm, normal heart sounds. Absent: systolic murmur, diastolic murmur, rubs, gallop, clicks GI/Abdominal exam: Present: soft, tenderness (Mid epigastric tenderness pal pation), normal bowel sounds. Absent: distended, guarding, rebound, rigid, bruit, pulsatile mass Extremities exam: Present: normal inspection, full ROM, normal capillary refill. Absent: tenderness, pedal edema, joint swelling, calf tenderness Back exam: Present: normal inspection Neurological exam: Present: alert, oriented X3, CN II-XII intact Psychiatric exam: Present: normal affect, normal mood Skin exam: Present: warm, dry, intact, normal color. Absent: rash Course Vital Signs 09/05/20 18:29 Temperature 97.9 F Pulse Rate 78 Respiratory 18 Rate Blood Pressure 133/80 O2 Sat by Pulse 99 Oximetry - Reevaluation(s) Reevaluation #1: 09/05/20 19:57 Reevaluation patient finds he is feeling much improved her pain is about 4/10 in the same area. Minimal discomfort to palpation Medical Decision Making - Medical Decision Making Patient given relief from the GI cocktail. She does feel much improved and wants to go home to be discharged and was advised to double up on her proton pump inhibitor for several days and also follow-up with her doctor. - Lab Data Result diagrams: 09/05/20 19:09/05/20 19:01 Lab Results 09/05/20 09/05/20 09/05/20 Range/Units 19: 19: 19:01 WBC 6.5 (3.8-10.6) k/uL RBC 4.45 (3.80-5.40) m/uL Hgb 12.1 (11.4-16.0) gm/dL Hct 37.0 (34.0-46.0) % MCV 83.0 (80.0-100.0) fL MCH 27.1 (25.0-35.0) pg MCHC 32.7 (31.0-37.0) g/dL RDW 14.1 (11.5-15.5) % Plt Count 232 (150-450) k/uL MPV 7.9 Neutrophils % 62 % Lymphocytes % 30 % Monocytes % 4 % Eosinophils % 2 % Basophils % 1 % Neutrophils # 4.0 (1.3-7.7) k/uL Lymphocytes # 1.9 (1.0-4.8) k/uL Monocytes # 0.3 (0-1.0) k/uL Eosinophils # 0.1 (0-0.7) k/uL Basophils # 0.0 (0-0.2) k/uL Sodium 138 (137-145) mmol/L Potassium 4.0 (3.5-5.1) mmol/L Chloride 101 (98-107) mmol/L Carbon Dioxide 28 (22-30) mmol/L Anion Gap 9 mmol/L BUN 38 H (7-17) mg/dL Creatinine 1.26 H (0.52-1.04) mg/dL Est GFR (CKD-EPI)AfAm 49 (>60 ml/min/1.73 sqM) Est GFR (CKD-EPI)NonAf 42 (>60 ml/min/1.73 sqM) Glucose 110 H (74-99) mg/dL Plasma Lactic Acid Maicol (0.7-2.0) mmol/L Calcium 10.2 (8.4-10.2) mg/dL Total Bilirubin 0.3 (0.2-1.3) mg/dL AST 29 (14-36) U/L ALT 23 (4-34) U/L Alkaline Phosphatase 53 (38-126) U/L Creatine Kinase 38 (30-135) U/L Troponin I (0.000-0.034) ng/mL Total Protein 7.0 (6.3-8.2) g/dL Albumin 4.3 (3.5-5.0) g/dL Amylase 69 (30-110) U/L Lipase 131 (23-300) U/L Urine Color Yellow Urine Appearance Cloudy H (Clear) Urine pH 5.0 (5.0-8.0) Ur Specific [place] 1.018 (1.001-1.035) Urine Protein Trace H (Negative) Urine Glucose (UA) Negative (Negative) Urine Ketones Negative (Negative) Urine Blood Negative (Negative) Urine Nitrite Negative (Negative) Urine Bilirubin Negative (Negative) Urine Urobilinogen <2.0 (<2.0) mg/dL Ur Leukocyte Esterase Large H (Negative) Urine RBC 3 (0-5) /hpf Urine WBC 116 H (0-5) /hpf Ur Squamous Epith Cells 1 (0-4) /hpf Urine Bacteria Moderate H (None) /hpf Hyaline Casts 17 H (0-2) /lpf Urine Mucus Rare H (None) /hpf 09/05/20 09/05/20 Range/Units 19:01 19:01 WBC (3.8-10.6) k/uL RBC (3.80-5.40) m/uL Hgb (11.4-16.0) gm/dL Hct (34.0-46.0) % MCV (80.0-100.0) fL MCH (25.0-35.0) pg MCHC (31.0-37.0) g/dL RDW (11.5-15.5) % Plt Count (150-450) k/uL MPV Neutrophils % % Lymphocytes % % Monocytes % % Eosinophils % % Basophils % % Neutrophils # (1.3-7.7) k/uL Lymphocytes # (1.0-4.8) k/uL Monocytes # (0-1.0) k/uL Eosinophils # (0-0.7) k/uL Basophils # (0-0.2) k/uL Sodium (137-145) mmol/L Potassium (3.5-5.1) mmol/L Chloride (98-107) mmol/L Carbon Dioxide (22-30) mmol/L Anion Gap mmol/L BUN (7-17) mg/dL Creatinine (0.52-1.04) mg/dL Est GFR (CKD-EPI)AfAm (>60 ml/min/1.73 sqM) Est GFR (CKD-EPI)NonAf (>60 ml/min/1.73 sqM) Glucose (74-99) mg/dL Plasma Lactic Acid Ma[place] 1.9 (0.7-2.0) mmol/L Calcium (8.4-10.2) mg/dL Total Bilirubin (0.2-1.3) mg/dL AST (14-36) U/L ALT (4-34) U/L Alkaline Phosphatase (38-126) U/L Creatine Kinase (30-135) U/L Troponin I <0.012 (0.000-0.034) ng/mL Total Protein (6.3-8.2) g/dL Albumin (3.5-5.0) g/dL Amylase (30-110) U/L Lipase (23-300) U/L Urine Color Urine Appearance (Clear) Urine pH (5.0-8.0) Ur Specific [place] (1.001-1.035) Urine Protein (Negative) Urine Glucose (UA) (Negative) Urine Ketones (Negative) Urine Blood (Negative) Urine Nitrite (Negative) Urine Bilirubin (Negative) Urine Urobilinogen (<2.0) mg/dL Ur Leukocyte Esterase (Negative) Urine RBC (0-5) /hpf Urine WBC (0-5) /hpf Ur Squamous Epith Cells (0-4) /hpf Urine Bacteria (None) /hpf Hyaline Casts (0-2) /lpf Urine Mucus (None) /hpf - Radiology Data Radiology results: report reviewed (Imaging results reviewed no acute findings), image reviewed Disposition Clinical Impression: Acute gastritis, Abdominal pain Disposition: HOME SELF-CARE Condition: Good Instructions (If sedation given, give patient instructions): Abdominal Pain (ED), Gastritis (ED) Additional Instructions: Double up on your proton pump inhibitor for 2-3 days, Pepto-Bismol when necessary, follow-up with her doctor Is patient prescribed a controlled substance at d/c from ED?: No Referrals: Damir Hernandez DO [Primary Care Provider] - 1-2 days
--- NOTE | 2020-09-05 19:16 | XR ---
EXAM: Abdomen radiograph. HISTORY: Pain. TECHNIQUE: Upright AP view. COMPARISON: 02/10/2019. FINDINGS: There are nondilated bowel loops with a nonobstructive pattern. No free air. There are no pathologic calcifications. No acute osseous abnormality seen. Several surgical coils overlying the abdomen/pelvi s, suggestive of prior hernia repair. IMPRESSION: No acute abnormality.
[2020-09-05 19:19] LABS: Basophils % (A) 1 %; Eosinophils # (A) 0.1 k/uL (0-0.7); Eosinophils % (A) 2 %; HGB 12.1 gm/dL (11.4-16.0); Lymphocytes # (A) 1.9 k/uL (1.0-4.8); Lymphocytes % (A) 30 %; MCH 27.1 pg (25.0-35.0); MCHC 32.7 g/dL (31.0-37.0); Mean Platelet Volume 7.9; Monocytes # (A) 0.3 k/uL (0-1.0); Monocytes % (A) 4 %; Neutrophils % (A) 62 %; Platelet Count 232 k/uL (150-450); RBC 4.45 m/uL (3.80-5.40); RDW 14.1 % (11.5-15.5); WBC 6.5 k/uL (3.8-10.6)
[2020-09-05 19:28] LABS: Appearance,Urine Cloudy (Clear); Bacteria,Urine Moderate /hpf; Bilirubin,Urine Negative (Negative); Blood,Urine Negative (Negative); Color,Urine Yellow; Glucose,Urine (UA) Negative (Negative); Hyaline Casts,Urine 17 /lpf (0-2); Ketones,Urine Negative (Negative); Leukocyte Esterase,Urine Large (Negative); Mucus,Urine Rare /hpf; Nitrite,Urine Negative (Negative); Protein,Urine Trace (Negative); RBC,Urine 3 /hpf (0-5); Specific Gravity,Urine 1.018 (1.001-1.035); Squamous Epithelial Cell,Urine 1 /hpf (0-4); Urobilinogen,Urine <2.0 mg/dL (<2.0); WBC,Urine 116 /hpf (0-5)
[2020-09-05 19:29] LABS: Albumin 4.3 g/dL (3.5-5.0); Calcium 10.2 mg/dL (8.4-10.2); Total Bilirubin 0.3 mg/dL (0.2-1.3)
[2020-09-05] MEDS ORDERED: MAG HYDROX/AL HYDROX/SIMETH 30 ML, HYOSCYAMINE ELIXIR 10 ML, LIDOCAINE VISCOUS 2% 10 ML PO STA ×3 (19:51)
[2020-09-05 20:33] VITALS: BP 131/87; PULSE 88; RESP 20
== END 2020-09-05 20:34 | disposition home or self-care (01) ==
LOC: EC 18:22
DX: K29.00 Acute gastritis without bleeding (principal); K21.9 Gastro-esophageal reflux disease without esophagitis; E78.5 Hyperlipidemia, unspecified; I10 Essential (primary) hypertension; E11.40 Type 2 diabetes mellitus with diabetic neuropathy, unspecified; G25.81 Restless legs syndrome; M10.9 Gout, unspecified; Z79.84 Long term (current) use of oral hypoglycemic drugs; Z79.899 Other long term (current) drug therapy; Z88.0 Allergy status to penicillin; Z88.6 Allergy status to analgesic agent; Z88.8 Allergy status to other drugs, medicaments and biological substances; Z91.011 Allergy to milk products; Z91.048 Other nonmedicinal substance allergy status; Z90.49 Acquired absence of other specified parts of digestive tract; Z95.5 Presence of coronary angioplasty implant and graft; Z90.710 Acquired absence of both cervix and uterus; Z98.51 Tubal ligation status; Z98.42 Cataract extraction status, left eye; Z98.41 Cataract extraction status, right eye; Z96.1 Presence of intraocular lens; Z96.653 Presence of artificial knee joint, bilateral; Z85.828 Personal history of other malignant neoplasm of skin; Z80.0 Family history of malignant neoplasm of digestive organs
CPT/HCPCS: 36415; 80053; 82150; 82550; 83605; 83690; 84484; 85025; 81001; 87086; 74018; 99284; 96374; 96361; J1885; 87077; 87186

== ENCOUNTER 2020-09-06 21:35 | Inpatient (IN) | payer MEDICARE ==
[2020-09-06] MEDS ORDERED: ONDANSETRON 4 MG/2 ML VIAL IVP STA (22:11)
--- NOTE | 2020-09-06 22:35 | ED ---
Fever HPI - General Source: patient, family Mode of arrival: ambulatory Limitations: no limitations - History of Present Illness MD Complaint: fever, other -: days(s) Temperature Source: oral Associated Symptoms: abdominal pain Treatments Prior to Arrival: none <Luis Auguste - Last Filed: 09/06/20 22:55> <Jovon Díaz - Last Filed: 09/07/20 04:27> - General Chief Complaint: Fever Stated Complaint: Revisit,Nausea, SOB Time Seen by Provider: 09/06/20 21:47 - History of Present Illness Initial Comments: This patient is a 75-year-old woman who presents here with 2 complaints. She states that she was seen previously for some abdominal and back pain, which has not really improved, and that in the interim she has developed fevers. The patient states that the pain initially had been in her low abdomen, but now it is in the mid back. She states that it is a dull pain. She has not noted worsening or relieving factors. She had not noted any change in bowel movements she states that she had been urinating frequently. (Luis Auguste) - Related Data Home Medications Medication Instructions Recorded Confirmed Evolocumab [Repatha Syringe] 140 mg SQ Q14D 11/17/18 09/05/20 Fenofibrate [Lofibra] 160 mg PO DAILY 11/17/18 09/05/20 Gabapentin [Neurontin] 300 mg PO HS 12/01/19 09/05/20 HYDROcodone/APAP 7.5-325MG [[place] 1 tab PO BID@0900,1400 12/01/19 09/05/20 7.5-325] Omeprazole [PriLOSEC] 20 mg PO DAILY 12/01/19 09/05/20 Pramipexole Di-HCl [Mirapex] 1.5 mg PO HS 12/01/19 09/05/20 Clotrimazole/Betamethasone Dip 1 applic TOPICAL BID 09/05/20 09/05/20 [Lotrisone Cream] HYDROcodone/APAP 7.5-325MG [[place] 0.5 tab PO HS 09/05/20 09/05/20 7.5-325] Isosorbide Mononitrate ER [Imdur] 30 mg PO DAILY 09/05/20 09/05/20 Losartan/Hydrochlorothiazide 1 tab PO DAILY 09/05/20 09/05/20 [Hyzaar 100-25 Tablet] Metoprolol Succinate [Toprol XL] 25 mg PO HS 09/05/20 09/05/20 Nortriptyline HCl [Pamelor] 10 mg PO HS 09/05/20 09/05/20 metFORMIN HCL [Glucophage] 1,000 mg PO BID 09/05/20 09/05/20 traZODone HCL [Desyrel] 50 mg PO HS 09/05/20 09/05/20 Allergies Allergy/AdvReac Type Severity Reaction Status Date / Time Penicillins Allergy Rash/Hives Verified 09/06/20 21:42 Gmblfme-Cca-Xjw Reductase Allergy Rash/Hives Verified 09/06/20 21:42 Inhibitor adhesive AdvReac Rash/Hives Verified 09/06/20 21:42 aspirin AdvReac STOMACH Verified 09/06/20 21:42 UPSET/HEARTBURN Milk Containing Products AdvReac Nausea Verified 09/06/20 21:42 [Dairy] STERI STRIP Allergy Rash/Hives/ Uncoded 09/06/20 21:42 ITCHING Review of Systems ROS Other: All systems not noted in ROS Statement are negative. Constitutional: Reports: fever, chills Respiratory: Denies: cough, dyspnea Cardiovascular: Denies: chest pain, palpitations, edema, syncope Gastrointestinal: Reports: abdominal pain. Denies: nausea, vomiting, diarrhea, constipation Genitourinary: Reports: frequency. Denies: dysuria, hematuria Musculoskeletal: Reports: back pain Skin: Denies: rash Neurological: Denies: headache, weakness, numbness <Luis Auguste - Last Filed: 09/06/20 22:55> ROS Other: All systems not noted in ROS Statement are negative. <Jovon Díaz - Last Filed: 09/07/20 04:27> ROS Statement: Those systems with pertinent positive or pertinent negative responses have been documented in the HPI. Past Medical History Past Medical History: Cancer, Chest Pain / Angina, Diabetes Mellitus, Eye Disorder, Fibromyalgia, GERD/Reflux, Hearing Disorder / Deafness, Hyperlipide carlos, Hypertension, Osteoarthritis (OA), Pneumonia Additional Past Medical History / Comment(s): Intestinal adhesions, RESTLESS LEG, Hiatal HERNIA, MENIERES, DIVERTICULITIS, GLAUCOMA R eye, (NOT CURRENTLY ON ANY MEDICATIONS FOR) NEUROPATHY bilateral legs, hx anemia. Irregular heartbeat. Degenerative Disc Disease. Difficulty hearing certain tones. gout, skin cancer, svt History of Any Multi-Drug Resistant Organisms: None Reported Past Surgical History: Appendectomy, Bladder Surgery, Bowel Resection, Cholecystectomy, Ear Surgery, Heart Catheterization, Hernia Repair, Hysterectomy, Joint Replacement, Orthopedic Surgery, Tonsillectomy, Tubal Ligation Additional Past Surgical History / Comment(s): Direct Microlaryngoscopy and removal left vocal cord mass.RIGHT BREAST BX, Diagnostic laparoscopy with lysis of adhesions. LUBNA KNEE REPLACEMENT, EYE surgery for cataracts bilaterally with lens implants, TUBE IN RIGHT EAR FOR MENIERES, LEFT THUMB SURGERY, hiatal hernia repair, abdominal ventral hernia repair. egd-10/08/18, esophagus stretched x3, spur removal left heel Past Anesthesia/Blood Transfusion Reactions: Motion Sickness, Postoperative Nausea & Vomiting (PONV) Additional Past Anesthesia/Blood Transfusion Reaction / Comment(s): DIVINA'S, STATES "DIFF INTUBATION-JAW LOCKED UP AFTER A PREVIOUS INTUBATION". "scraped vocal cord-evaluated by Dr Smart" Past Psychological History: No Psychological Hx Reported Smoking Status: Never smoker Past Alcohol Use History: Rare Past Drug Use History: None Reported - Past Family History Brother(s) Family Medical History: Cancer Mother Family Medical History: Cancer, CVA/TIA, Deep Vein Thrombosis (DVT) Additional Family Medical History / Comment(s): STOMACH CANCER Father Family Medical History: No Reported History Additional Family Medical History / Comment(s): COMMITTED SUICIDE <Luis Auguste - Last Filed: 09/06/20 22:55> General Exam Limitations: no limitations General appearance: alert, in no apparent distress Head exam: Present: atraumatic, normocephalic Eye exam: Present: normal appearance. Absent: scleral icterus, conjunctival injection ENT exam: Present: normal oropharynx Respiratory exam: Present: normal lung sounds bilaterally. Absent: respiratory distress, wheezes, rales, rhonchi, stridor Cardiovascular Exam: Present: regular rate, normal rhythm, normal heart sounds. Absent: systolic murmur, diastolic murmur, rubs, gallop GI/Abdominal exam: Present: soft. Absent: distended, tenderness, guarding, rebound, rigid, mass Extremities exam: Present: normal inspection, normal capillary refill. Absent: pedal edema, calf tenderness Back exam: Present: normal inspection. Absent: CVA tenderness (R), CVA tenderness (L) Neurological exam: Present: alert Skin exam: Present: warm, dry, intact, normal color. Absent: rash <Luis Auguste - Last Filed: 09/06/20 22:55> General appearance: alert, in no apparent distress, anxious Head exam: Present: atraumatic, normocephalic, normal inspection Eye exam: Present: normal appearance, PERRL, EOMI. Absent: scleral icterus, conjunctival injection, periorbital swelling ENT exam: Present: normal exam, mucous membranes moist Neck exam: Present: normal inspection. Absent: tenderness, meningismus, lymphadenopathy Respiratory exam: Present: normal lung sounds bilaterally. Absent: respiratory distress, wheezes, rales, rhonchi, stridor Cardiovascular Exam: Present: regular rate, normal rhythm, normal heart sounds. Absent: systolic murmur, diastolic murmur, rubs, gallop, clicks GI/Abdominal exam: Present: soft, tenderness, normal bowel sounds. Absent: distended, guarding, rebound, rigid Extremities exam: Present: normal inspection, full ROM, normal capillary refill. Absent: tenderness, pedal edema, joint swelling, calf tenderness Back exam: Present: normal inspection Neurological exam: Present: alert, oriented X3, CN II-XII intact Psychiatric exam: Present: normal affect, normal mood Skin exam: Present: warm, dry, intact, normal color. Absent: rash <Jovon Díaz - Last Filed: 09/07/20 04:27> Course <Jovon Díaz - Last Filed: 09/07/20 04:27> Vital Signs 09/06/20 09/07/20 21:38 00:45 Temperature 99 F Pulse Rate 85 69 Respiratory 22 16 Rate Blood Pressure 110/67 97/72 O2 Sat by Pulse 97 98 Oximetry - Reevaluation(s) Reevaluation #1: Medical records reviewed Patient still with continued pain here in the ER Spoke with patient regarding findings, she is understanding (Jovon Díaz) Medical Decision Making - Lab Data Result diagrams: 09/06/20 22:34 - EKG Data -: EKG Interpreted by Me EKG shows normal: sinus rhythm, axis (Normal), intervals (Normal), QRS complexes (Possible old anterior infarct), ST-T waves (Normal) Rate: normal (Rate 88 bpm) <Luis Auguste - Last Filed: 09/06/20 22:55> - Lab Data Result diagrams: 09/06/20 22:34 09/06/20 22:34 - Radiology Data Radiology results: report reviewed (CT abdomen and pelvis is positive for 2 Cardizem abscess), image reviewed <Jovon Díaz - Last Filed: 09/07/20 04:27> - Medical Decision Making 75 female DF for evaluation persistent pain back pain does have. Urinary tract infection with diverticulitis with probable abscess. Patient will be admitted for IV antibiotics and surgical consultation. (Jovon Díaz) - Lab Data Lab Results 09/06/20 09/06/20 09/06/20 Range/Units 22:34 22:34 22:34 WBC 12.1 H (3.8-10.6) k/uL RBC 4.77 (3.80-5.40) m/uL Hgb 13.3 (11.4-16.0) gm/dL Hct 38.3 (34.0-46.0) % MCV 80.2 (80.0-100.0) fL MCH 27.8 (25.0-35.0) pg MCHC 34.6 (31.0-37.0) g/dL RDW 13.8 (11.5-15.5) % Plt Count 235 (150-450) k/uL MPV 7.8 Neutrophils % 79 % Lymphocytes % 14 % Monocytes % 5 % Eosinophils % 1 % Basophils % 1 % Neutrophils # 9.5 H (1.3-7.7) k/uL Lymphocytes # 1.7 (1.0-4.8) k/uL Monocytes # 0.6 (0-1.0) k/uL Eosinophils # 0.1 (0-0.7) k/uL Basophils # 0.1 (0-0.2) k/uL Sodium 138 (137-145) mmol/L Potassium 3.5 (3.5-5.1) mmol/L Chloride 102 (98-107) mmol/L Carbon Dioxide 27 (22-30) mmol/L Anion Gap 9 mmol/L BUN 20 H (7-17) mg/dL Creatinine 0.73 (0.52-1.04) mg/dL Est GFR (CKD-EPI)AfAm >90 (>60 ml/min/1.73 sqM) Est GFR (CKD-EPI)NonAf 82 (>60 ml/min/1.73 sqM) Glucose 127 H (74-99) mg/dL Plasma Lactic Acid [place] 1.2 (0.7-2.0) mmol/L Calcium 9.8 (8.4-10.2) mg/dL Total Bilirubin 0.7 (0.2-1.3) mg/dL AST 27 (14-36) U/L ALT 21 (4-34) U/L Alkaline Phosphatase 59 (38-126) U/L Troponin I (0.000-0.034) ng/mL Total Protein 7.5 (6.3-8.2) g/dL Albumin 4.5 (3.5-5.0) g/dL Amylase 43 (30-110) U/L Lipase 73 (23-300) U/L Urine Color Urine Appearance (Clear) Urine pH (5.0-8.0) Ur Specific [place] (1.001-1.035) Urine Protein (Negative) Urine Glucose (UA) (Negative) Urine Ketones (Negative) Urine Blood (Negative) Urine Nitrite (Negative) Urine Bilirubin (Negative) Urine Urobilinogen (<2.0) mg/dL Ur Leukocyte Esterase (Negative) Urine RBC (0-5) /hpf Urine WBC (0-5) /hpf Ur Squamous Epith Cells (0-4) /hpf Urine Bacteria (None) /hpf Urine Mucus (None) /hpf 09/06/20 09/06/20 Range/Units 22:34 23:00 WBC (3.8-10.6) k/uL RBC (3.80-5.40) m/uL Hgb (11.4-16.0) gm/dL Hct (34.0-46.0) % MCV (80.0-100.0) fL MCH (25.0-35.0) pg MCHC (31.0-37.0) g/dL RDW (11.5-15.5) % Plt Count (150-450) k/uL MPV Neutrophils % % Lymphocytes % % Monocytes % % Eosinophils % % Basophils % % Neutrophils # (1.3-7.7) k/uL Lymphocytes # (1.0-4.8) k/uL Monocytes # (0-1.0) k/uL Eosinophils # (0-0.7) k/uL Basophils # (0-0.2) k/uL Sodium (137-145) mmol/L Potassium (3.5-5.1) mmol/L Chloride (98-107) mmol/L Carbon Dioxide (22-30) mmol/L Anion Gap mmol/L BUN (7-17) mg/dL Creatinine (0.52-1.04) mg/dL Est GFR (CKD-EPI)AfAm (>60 ml/min/1.73 sqM) Est GFR (CKD-EPI)NonAf (>60 ml/min/1.73 sqM) Glucose (74-99) mg/dL Plasma Lactic Acid [place] (0.7-2.0) mmol/L Calcium (8.4-10.2) mg/dL Total Bilirubin (0.2-1.3) mg/dL AST (14-36) U/L ALT (4-34) U/L Alkaline Phosphatase (38-126) U/L Troponin I <0.012 (0.000-0.034) ng/mL Total Protein (6.3-8.2) g/dL Albumin (3.5-5.0) g/dL Amylase (30-110) U/L Lipase (23-300) U/L Urine Color Yellow Urine Appearance Cloudy H (Clear) Urine pH 7.5 (5.0-8.0) Ur Specific [place] 1.023 (1.001-1.035) Urine Protein Trace H (Negative) Urine Glucose (UA) Negative (Negative) Urine Ketones Negative (Negative) Urine Blood Negative (Negative) Urine Nitrite Negative (Negative) Urine Bilirubin Negative (Negative) Urine Urobilinogen 2.0 (<2.0) mg/dL Ur Leukocyte Esterase Large H (Negative) Urine RBC 2 (0-5) /hpf Urine WBC 41 H (0-5) /hpf Ur Squamous Epith Cells 1 (0-4) /hpf Urine Bacteria Rare H (None) /hpf Urine Mucus Occasional H (None) /hpf Disposition <Luis Auguste - Last Filed: 09/06/20 22:55> Is patient prescribed a controlled substance at d/c from ED?: No <Jovon Díaz - Last Filed: 09/07/20 04:27> Clinical Impression: Vomiting, Abdominal pain, UTI (urinary tract infection), Pyelonephritis, Failure of outpatient treatment Disposition: ADMITTED IP TO THIS HOSP Condition: Fair
[2020-09-06 22:45] LABS: Basophils # (A) 0.1 k/uL (0-0.2); Basophils % (A) 1 %; Eosinophils # (A) 0.1 k/uL (0-0.7); Eosinophils % (A) 1 %; HCT 38.3 % (34.0-46.0); HGB 13.3 gm/dL (11.4-16.0); Lymphocytes # (A) 1.7 k/uL (1.0-4.8); Lymphocytes % (A) 14 %; MCH 27.8 pg (25.0-35.0); MCHC 34.6 g/dL (31.0-37.0); MCV 80.2 fL (80.0-100.0); Mean Platelet Volume 7.8; Monocytes # (A) 0.6 k/uL (0-1.0); Monocytes % (A) 5 %; Neutrophils # (A) 9.5 k/uL (1.3-7.7); Neutrophils % (A) 79 %; Platelet Count 235 k/uL (150-450); RBC 4.77 m/uL (3.80-5.40); RDW 13.8 % (11.5-15.5); WBC 12.1 k/uL (3.8-10.6)
--- NOTE | 2020-09-06 22:47 | XR ---
EXAMINATION TYPE: XR chest 1V portable DATE OF EXAM: 09/06/2020 COMPARISON: 04/21/2020 HISTORY: Pain TECHNIQUE: Single view FINDINGS: Heart size is normal. There is no heart failure. Lungs are clear of infiltrate. There is no pleural effusion. Thoracic aorta is atheromatous. Bony tho rax appears intact. There is probably a hiatal hernia. IMPRESSION: Hiatal hernia appears new compared to old exam. No acute lung disease.
[2020-09-06 23:02] LABS: ALT 21 U/L (4-34); AST 27 U/L (14-36); African American GFR (CKD) >90 (>60 ml/min/1.73 sqM); Albumin 4.5 g/dL (3.5-5.0); Alkaline Phosphatase 59 U/L (38-126); Amylase 43 U/L (30-110); Anion Gap 9 mmol/L; Blood Urea Nitrogen 20 mg/dL (7-17); Calcium 9.8 mg/dL (8.4-10.2); Carbon Dioxide 27 mmol/L (22-30); Chloride 102 mmol/L (98-107); Glucose 127 mg/dL (74-99); Lipase 73 U/L (23-300); Non-African American GFR(CKD) 82 (>60 ml/min/1.73 sqM); Potassium 3.5 mmol/L (3.5-5.1); Sodium 138 mmol/L (137-145); Total Bilirubin 0.7 mg/dL (0.2-1.3); Total Protein 7.5 g/dL (6.3-8.2)
[2020-09-06 23:07] LABS: Appearance,Urine Cloudy (Clear); Bacteria,Urine Rare /hpf; Bilirubin,Urine Negative (Negative); Blood,Urine Negative (Negative); Color,Urine Yellow; Glucose,Urine (UA) Negative (Negative); Ketones,Urine Negative (Negative); Leukocyte Esterase,Urine Large (Negative); Mucus,Urine Occasional /hpf; Nitrite,Urine Negative (Negative); PH, Urine 7.5 (5.0-8.0); Protein,Urine Trace (Negative); RBC,Urine 2 /hpf (0-5); Specific Gravity,Urine 1.023 (1.001-1.035); Squamous Epithelial Cell,Urine 1 /hpf (0-4); WBC,Urine 41 /hpf (0-5)
--- NOTE | 2020-09-06 23:09 | CT ---
EXAMINATION TYPE: CT abdomen pelvis wo con DATE OF EXAM: 09/06/2020 COMPARISON: 12/01/2019 HISTORY: Abd Pain CT DLP: 635.40 mGycm Automated exposure control for dose reduction was used. Images obtained from the diaphragm to the floor the pelvis with no contrast. Lung bases are clear. There is no pleural effusion. There is moderate-sized hiatal hernia. Heart size is normal. There is no pericardial effusion. There is some coronary artery calcification. Liver and spleen appear intact. The bile ducts are not dilated. There is no evidence of pancreatic ma ss. Gallbladder appears absent. There is no adrenal mass. Kidneys have normal size. There is no hydronephrosis. Ureters are not dilat ed. There is no retroperitoneal adenopathy. There are surgical clips in the pelvis. There is hysterec aaliyah. There are multiple sigmoid diverticula. There is no free fluid in the pelvis. There is some fat stranding around the proximal mid small bowel in the left lower quadrant. There is 2 cm extraluminal collection of air and fecal material on the anterior wall of the small bowel consis tent with peridiverticular abscess. This is best seen on the sagittal image [id number]. Appendix is not se en. The lumbar vertebra have normal alignment. There is no compression fracture. I see no focal bone dest ruction. There is anterior spurring in the mid lumbar spine. Posterior elements are intact. There is moderate hypertrophic facet arthropathy at L5-S1. There is rudimentary disc at S1-S2. The bony pelvis is intact. Hip joints are intact. There is 1 cm degenerative cyst on the posterior right acetabulum. There is no evidence of a bowel obstruction. There is no evidence of free air. There is no ascites. T here are multiple clips on the anterior abdominal wall consistent with hernia surgery. IMPRESSION: Diverticulosis of the sigmoid colon. There is evidence of peridiverticular abscess and diverticulitis of the mid small Bowel in the left lower quadrant.. This appears new compared to old exam. Inflammat ory changes around a Meckel's diverticulum is also possible. Hiatal hernia.
[2020-09-06] MEDS ORDERED: cefTRIAXone IN SWFI 1,000 MG/10 ML SYRINGE IVP STA (23:14)
[2020-09-07] MEDS ORDERED: SODIUM CHLORIDE 0.9% 1,000 ML IV ONE (00:38)
[2020-09-07] MEDS ORDERED: MORPHINE SULFATE 4 MG/ML SYRINGE IVP STA (00:45)
[2020-09-07] MEDS ORDERED: metroNIDAZOLE-NS PMX 500 MG in SALINE 1 100ML.BAG IVPB STA (00:52)
[2020-09-07] MEDS: metroNIDAZOLE-NS PMX 500 MG in SALINE 1 100ML.BAG IVPB SCH ×3 (07:19→23:30)
[2020-09-07] MEDS: MORPHINE SULFATE 4 MG/ML SYRINGE IVP PRN ×2 (07:20→19:17)
--- NOTE | 2020-09-07 11:14 | P.GSCN ---
History of Present Illness Consult date: 09/07/20 History of present illness: CHIEF COMPLAINT: Left lower quadrant abdominal pain HISTORY OF PRESENT ILLNESS: This is a 75-year-old female with a known past medical history of diverticulitis in which she had required a bowel resection in 1998. She also has a history of diabetes, hyperlipidemia, hypertension, osteoarthritis, hiatal hernia. Surgical history also includes appendectomy, cholecystectomy, ventral hernia repair, GE junction strictures requiring EGD and dilation in the past. Patient presents to the emergency room with complaints of left lower quadrant abdominal pain that has been present for about one week. Patient has been having fevers as high as 103 with nausea and vomiting. She also had reported some upper back pain. Patient had computed tomography scan of the abdomen and pelvis completed showing diverticulosis of the sigmoid colon. There is evidence of peridiverticular abscess and diverticulitis of the mid small bowel in the left lower quadrant. This appears new compared to old exam. Inflammatory changes around Meckel's diverticulum is also possible. Hiatal hernia present. Patient reports no change in bowel movements. She reports a decreased appetite. She did have a temp of 99 and white count elevated at 12.1 on admission and is currently on antibiotics. PAST MEDICAL HISTORY: See list. PAST SURGICAL HISTORY: See list. MEDICATIONS: See list. ALLERGIES: See list. SOCIAL HISTORY: No illicit drug use. REVIEW OF SYSTEMS: CONSTITUTIONAL: Denies fever or chills. HEENT: Denies blurred vision, vision changes, or eye pain. Denies hemoptysis CARDIOVASCULAR: Denies chest pain or pressure. RESPIRATORY: No shortness of breath. GASTROINTESTINAL: See HPI for pertinent findings HEMATOLOGIC: Denies bleeding disorders. GENITOURINARY: Denies any blood in urine or increased urinary frequency. SKIN: Denies pruitis. Denies rash. PHYSICAL EXAM: VITAL SIGNS: Reviewed GENERAL: Well-developed in no acute distress. HEENT: No sclera icterus. Extraocular movements grossly intact. Moist buccal mucosa. Head is atraumatic, normocephalic. No nasal drainage. ABDOMEN: Soft. Nondistended. Left lower quadrant tenderness with palpation NEUROLOGIC: Alert and oriented. Cranial nerves II through XII grossly intact. LABORATORY DATA: WBC 12.1 hemoglobin 13.3. Lactic 1.2 LFTs normal lipase normal IMAGING: computed tomography scan of the abdomen and pelvis completed showing diverticulosis of the sigmoid colon. There is evidence of peridiverticular abscess and diverticulitis of the mid small bowel in the left lower quadrant. This appears new compared to old exam. Inflammatory changes around Meckel's diverticulum is also possible. Hiatal hernia present. ASSESSMENT: 1. Peridiverticular abscess and diverticulitis of the mid small bowel in the left lower quadrant 2. Prior history of diverticulitis and bowel resection in 1998 PLAN: -Continue IV antibiotics Rocephin and Flagyl -Continue IV fluids -Decreased diet to clear liquid diet due to patient's increase in pain Thank you for this consultation Physician Actuarial Clerk note has been reviewed by physician. Signing provider agrees with the documented findings, assessment, and plan of care. Past Medical History Past Medical History: Cancer, Chest Pain / Angina, Diabetes Mellitus, Eye Disorder, Fibromyalgia, GERD/Reflux, Hearing Disorder / Deafness, Hyperlipidemia, Hypertension, Osteoarthritis (OA), Pneumonia Additional Past Medical History / Comment(s): Intestinal adhesions, RESTLESS LEG, Hiatal HERNIA, MENIERES, DIVERTICULITIS, GLAUCOMA R eye, (NOT CURRENTLY ON ANY MEDICATIONS FOR) NEUROPATHY bilateral legs, hx anemia. Irregular heartbeat. Degenerative Disc Disease. Difficulty hearing certain tones. gout, skin cancer, svt History of Any Multi-Drug Resistant Organisms: None Reported Past Surgical History: Appendectomy, Bladder Surgery, Bowel Resection, Cholecystectomy, Ear Surgery, Heart Catheterization, Hernia Repair, Hysterectomy, Joint Replacement, Orthopedic Surgery, Tonsillectomy, Tubal Ligation Additional Past Surgical History / Comment(s): Direct Microlaryngoscopy and removal left vocal cord mass.RIGHT BREAST BX, Diagnostic laparoscopy with lysis of adhesions. LUBNA KNEE REPLACEMENT, EYE surgery for cataracts bilaterally with lens implants, TUBE IN RIGHT EAR FOR MENIERES, LEFT THUMB SURGERY, hiatal hernia repair, abdominal ventral hernia repair. egd-10/08/18, esophagus stretched x3, spur removal left heel Past Anesthesia/Blood Transfusion Reactions: Motion Sickness, Postoperative Nausea & Vomiting (PONV) Additional Past Anesthesia/Blood Transfusion Reaction / Comm: MENIERE'S, STATES "DIFF INTUBATION-JAW LOCKED UP AFTER A PREVIOUS INTUBATION". "scraped vocal cord-evaluated by Dr Smart" Past Psychological History: No Psychological Hx Reported Additional Psychological History / Comment(s): . Smoking Status: Never smoker Past Alcohol Use History: Rare Additional Past Alcohol Use History / Comment(s): Smoked x 5 years off and on less then a ppd, quit 30 years ago. Past Drug Use History: None Reported - Past Family History Brother(s) Family Medical History: Cancer Mother Family Medical History: Cancer, CVA/TIA, Deep Vein Thrombosis (DVT) Additional Family Medical History / Comment(s): STOMACH CANCER Father Family Medical History: No Reported History Additional Family Medical History / Comment(s): COMMITTED SUICIDE Medications and Allergies Home Medications Medication Instructions Recorded Confirmed Type Evolocumab [Repatha Syringe] 140 mg SQ Q14D 11/17/18 09/07/20 History Fenofibrate [Lofibra] 160 mg PO DAILY 11/17/18 09/07/20 History Gabapentin [Neurontin] 300 mg PO HS 12/01/19 09/07/20 History HYDROcodone/APAP 7.5-325MG [[place] 1 tab PO BID@0900,1400 12/01/19 09/07/20 History 7.5-325] Omeprazole [PriLOSEC] 20 mg PO DAILY 12/01/19 09/07/20 History Clotrimazole/Betamethasone Dip 1 applic TOPICAL BID 09/05/20 09/07/20 History [Lotrisone Cream] HYDROcodone/APAP 7.5-325MG [[place] 0.5 tab PO HS 09/05/20 09/07/20 History 7.5-325] Isosorbide Mononitrate ER [Imdur] 30 mg PO DAILY 09/05/20 09/07/20 History Losartan/Hydrochlorothiazide 1 tab PO DAILY 09/05/20 09/07/20 History [Hyzaar 100-25 Tablet] Metoprolol Succinate [Toprol XL] 25 mg PO HS 09/05/20 09/07/20 History Nortriptyline HCl [Pamelor] 10 mg PO HS 09/05/20 09/07/20 History metFORMIN HCL [Glucophage] 1,000 mg PO BID 09/05/20 09/07/20 History traZODone HCL [Desyrel] 50 mg PO HS 09/05/20 09/07/20 History Allergy Relief 1 tab PO DAILY 09/07/20 09/07/20 History Cholecalciferol [Vitamin D3 (25 1,000 unit PO DAILY 09/07/20 09/07/20 History Mcg = 1000 Iu)] Fluticasone Nasal [place] [Flonase 1 spr EA NOSTRIL BID 09/07/20 09/07/20 History Nasal [place]] Furosemide [Lasix] 20 mg PO Q48H 09/07/20 09/07/20 History Vit C/E/Zn/Coppr/Lutein/Zeaxan 1 cap PO BID 09/07/20 09/07/20 History [Preservision Areds 2 Softgel] Allergies Allergy/AdvReac Type Severity Reaction Status Date / Time Penicillins Allergy Rash/Hives Verified 09/07/20 07:56 Uyceuii-[id number]-[id number] Reductase Allergy Rash/Hives Verified 09/07/20 07:56 Inhibitor adhesive AdvReac Rash/Hives Verified 09/07/20 07:56 aspirin AdvReac STOMACH Verified 09/07/20 07:56 UPSET/HEARTBURN Milk Containing Products AdvReac Nausea Verified 09/07/20 07:56 [Dairy] STERI STRIP Allergy Rash/Hives/ Uncoded 09/06/20 21:42 ITCHING Surgical - Exam Vital Signs Temp Pulse Resp BP Pulse Ox 99 F 85 22 110/67 97 09/06/20 21:38 09/06/20 21:38 09/06/20 21:38 09/06/20 21:38 09/06/20 21:38 Results - Labs 09/07/20 11:53 09/06/20 22:34 Abnormal Lab Results - Last 24 Hours (Table) 09/06/20 09/06/20 09/06/20 Range/Units 22:34 22:34 23:00 WBC 12.1 H (3.8-10.6) k/uL Neutrophils # 9.5 H (1.3-7.7) k/uL BUN 20 H (7-17) mg/dL Glucose 127 H (74-99) mg/dL Urine Appearance Cloudy H (Clear) Urine Protein Trace H (Negative) Ur Leukocyte Esterase Large H (Negative) Urine WBC 41 H (0-5) /hpf Urine Bacteria Rare H (None) /hpf Urine Mucus Occasional H (None) /hpf Microbiology - Last 24 Hours (Table) 09/06/20 23:00 Urine Culture - Preliminary Urine,Clean Catch Diabetes panel 09/06/20 Range/Units 22:34 Sodium 138 (137-145) mmol/L Potassium 3.5 (3.5-5.1) mmol/L Chloride 102 (98-107) mmol/L Carbon Dioxide 27 (22-30) mmol/L BUN 20 H (7-17) mg/dL Creatinine 0.73 (0.52-1.04) mg/dL Glucose 127 H (74-99) mg/dL Calcium 9.8 (8.4-10.2) mg/dL AST 27 (14-36) U/L ALT 21 (4-34) U/L Alkaline Phosphatase 59 (38-126) U/L Total Protein 7.5 (6.3-8.2) g/dL Albumin 4.5 (3.5-5.0) g/dL Calcium panel 09/06/20 Range/Units 22:34 Calcium 9.8 (8.4-10.2) mg/dL Albumin 4.5 (3.5-5.0) g/dL Pituitary panel 09/06/20 Range/Units 22:34 Sodium 138 (137-145) mmol/L Potassium 3.5 (3.5-5.1) mmol/L Chloride 102 (98-107) mmol/L Carbon Dioxide 27 (22-30) mmol/L BUN 20 H (7-17) mg/dL Creatinine 0.73 (0.52-1.04) mg/dL Glucose 127 H (74-99) mg/dL Calcium 9.8 (8.4-10.2) mg/dL Adrenal panel 09/06/20 Range/Units 22:34 Sodium 138 (137-145) mmol/L Potassium 3.5 (3.5-5.1) mmol/L Chloride 102 (98-107) mmol/L Carbon Dioxide 27 (22-30) mmol/L BUN 20 H (7-17) mg/dL Creatinine 0.73 (0.52-1.04) mg/dL Glucose 127 H (74-99) mg/dL Calcium 9.8 (8.4-10.2) mg/dL Total Bilirubin 0.7 (0.2-1.3) mg/dL AST 27 (14-36) U/L ALT 21 (4-34) U/L Alkaline Phosphatase 59 (38-126) U/L Total Protein 7.5 (6.3-8.2) g/dL Albumin 4.5 (3.5-5.0) g/dL
[2020-09-07] MEDS ORDERED: HYDROcodone/APAP 7.5-325MG 1 EACH TAB PO PRN (11:19)
--- NOTE | 2020-09-07 11:20 | P.HPIM ---
History of Present Illness 75-year-old pleasant female was seen in ER couple days ago with complains of a suprapubic pain and ability to have urinary tract infection was discharged home. Comes Back Today with the Same Pain 2 Days Ago Patient Had Fever. Patient Didn't Have a Fever since She Came in Here Patient Was Having Multiple Episodes of Nausea Vomiting. Patient Is Bit Dark Urine Is Bit Abnormal but Doesn't Have Any Dysuria. Doesn't Appear to Have Urinary Tract Infection Patient Does Have Diverticulitis in the mid small bowel with peridiverticular abscess. Review of Systems REVIEW OF SYSTEMS: CONSTITUTIONAL: No fever, no malaise, no fatigue. HEENT: No recent visual problems or hearing problems. Denied any sore throat. CARDIOVASCULAR: No chest pain, orthopnea, PND, no palpitations, no syncope. PULMONARY: No shortness of breath, no cough, no hemoptysis. GASTROINTESTINAL: As mentioned in HPI NEUROLOGICAL: No headaches, no weakness, no numbness. HEMATOLOGICAL: Denies any bleeding or petechiae. GENITOURINARY: Denies any burning micturition, frequency, or urgency. MUSCULOSKELETAL/RHEUMATOLOGICAL: Denies any joint pain, swelling, or any muscle pain. ENDOCRINE: Denies any polyuria or polydipsia. The rest of the 14-point review of systems is negative. Past Medical History Past Medical History: Cancer, Chest Pain / Angina, Diabetes Mellitus, Eye Disorder, Fibromyalgia, GERD/Reflux, Hearing Disorder / Deafness, Hyperlipidemia, Hypertension, Osteoarthritis (OA), Pneumonia Additional Past Medical History / Comment(s): Intestinal adhesions, RESTLESS LEG, Hiatal HERNIA, MENIERES, DIVERTICULITIS, GLAUCOMA R eye, (NOT CURRENTLY ON ANY MEDICATIONS FOR) NEUROPATHY bilateral legs, hx anemia. Irregular heartbeat. Degenerative Disc Disease. Difficulty hearing certain tones. gout, skin cancer, svt History of Any Multi-Drug Resistant Organisms: None Reported Past Surgical History: Appendectomy, Bladder Surgery, Bowel Resection, Cholecystectomy, Ear Surgery, Heart Catheterization, Hernia Repair, Hysterectomy, Joint Replacement, Orthopedic Surgery, Tonsillectomy, Tubal Ligation Additional Past Surgical History / Comment(s): Direct Microlaryngoscopy and removal left vocal cord mass.RIGHT BREAST BX, Diagnostic laparoscopy with lysis of adhesions. LUBNA KNEE REPLACEMENT, EYE surgery for cataracts bilaterally with lens implants, TUBE IN RIGHT EAR FOR MENIERES, LEFT THUMB SURGERY, hiatal hernia repair, abdominal ventral hernia repair. egd-10/08/18, esophagus stretched x3, spur removal left heel Past Anesthesia/Blood Transfusion Reactions: Motion Sickness, Postoperative Nausea & Vomiting (PONV) Additional Past Anesthesia/Blood Transfusion Reaction / Comment(s): KAROIERAnton'S, STATES "DIFF INTUBATION-JAW LOCKED UP AFTER A PREVIOUS INTUBATION". "scraped vocal cord-evaluated by Dr Smart" Past Psychological History: No Psychological Hx Reported Additional Psychological History / Comment(s): . Smoking Status: Never smoker Past Alcohol Use History: Rare Additional Past Alcohol Use History / Comment(s): Smoked x 5 years off and on less then a ppd, quit 30 years ago. Past Drug Use History: None Reported - Past Family History Brother(s) Family Medical History: Cancer Mother Family Medical History: Cancer, CVA/TIA, Deep Vein Thrombosis (DVT) Additional Family Medical History / Comment(s): STOMACH CANCER Father Family Medical History: No Reported History Additional Family Medical History / Comment(s): COMMITTED SUICIDE Medications and Allergies Home Medications Medication Instructions Recorded Confirmed Type Evolocumab [Repatha Syringe] 140 mg SQ Q14D 11/17/18 09/07/20 History Fenofibrate [Lofibra] 160 mg PO DAILY 11/17/18 09/07/20 History Gabapentin [Neurontin] 300 mg PO HS 12/01/19 09/07/20 History HYDROcodone/APAP 7.5-325MG [[place] 1 tab PO BID@0900,1400 12/01/19 09/07/20 History 7.5-325] Omeprazole [PriLOSEC] 20 mg PO DAILY 12/01/19 09/07/20 History Clotrimazole/Betamethasone Dip 1 applic TOPICAL BID 09/05/20 09/07/20 History [Lotrisone Cream] HYDROcodone/APAP 7.5-325MG [[place] 0.5 tab PO HS 09/05/20 09/07/20 History 7.5-325] Isosorbide Mononitrate ER [Imdur] 30 mg PO DAILY 09/05/20 09/07/20 History Losartan/Hydrochlorothiazide 1 tab PO DAILY 09/05/20 09/07/20 History [Hyzaar 100-25 Tablet] Metoprolol Succinate [Toprol XL] 25 mg PO HS 09/05/20 09/07/20 History Nortriptyline HCl [Pamelor] 10 mg PO HS 09/05/20 09/07/20 History metFORMIN HCL [Glucophage] 1,000 mg PO BID 09/05/20 09/07/20 History traZODone HCL [Desyrel] 50 mg PO HS 09/05/20 09/07/20 History Allergy Relief 1 tab PO DAILY 09/07/20 09/07/20 History Cholecalciferol [Vitamin D3 (25 1,000 unit PO DAILY 09/07/20 09/07/20 History Mcg = 1000 Iu)] Fluticasone Nasal [place] [Flonase 1 spr EA NOSTRIL BID 09/07/20 09/07/20 History Nasal [place]] Furosemide [Lasix] 20 mg PO Q48H 09/07/20 09/07/20 History Vit C/E/Zn/Coppr/Lutein/Zeaxan 1 cap PO BID 09/07/20 09/07/20 History [Preservision Areds 2 Softgel] Allergies Allergy/AdvReac Type Severity Reaction Status Date / Time Penicillins Allergy Rash/Hives Verified 09/07/20 07:56 Xwuxqiz-Fds-Svx Reductase Allergy Rash/Hives Verified 09/07/20 07:56 Inhibitor adhesive AdvReac Rash/Hives Verified 09/07/20 07:56 aspirin AdvReac STOMACH Verified 09/07/20 07:56 UPSET/HEARTBURN Milk Containing Products AdvReac Nausea Verified 09/07/20 07:56 [Dairy] STERI STRIP Allergy Rash/Hives/ Uncoded 09/06/20 21:42 ITCHING Physical Exam Vitals: Vital Signs Temp Pulse Pulse Resp BP BP Pulse Ox 09/07/20 08:00 98.2 F 80 16 106/62 95 09/07/20 01:34 98.8 F 78 118/69 97 09/07/20 00:45 69 16 97/72 98 09/06/20 21:38 99 F 85 22 110/67 97 Intake and Output 09/06/20 09/07/20 09/07/20 22:59 06:59 14:59 Other: Weight 76.657 kg 76.657 kg PHYSICAL EXAMINATION: GENERAL: The patient is alert and oriented x3, not in any acute distress. Well developed, well nourished. HEENT: Pupils are round and equally reacting to light. EOMI. No scleral icterus. No conjunctival pallor. Normocephalic, atraumatic. No pharyngeal erythema. No thyromegaly. CARDIOVASCULAR: S1 and S2 present. No murmurs, rubs, or gallops. PULMONARY: Chest is clear to auscultation, no wheezing or crackles. ABDOMEN: Soft, suprapubic tenderness, nondistended, normoactive bowel sounds. No palpable organomegaly. MUSCULOSKELETAL: No joint swelling or deformity. EXTREMITIES: No cyanosis, clubbing, or pedal edema. NEUROLOGICAL: Gross neurological examination did not reveal any focal deficits. SKIN: No rashes. Results CBC & Chem 7: 09/06/20 22:34 09/06/20 22:34 Labs: Abnormal Lab Results - Last 24 Hours (Table) 09/06/20 09/06/20 09/06/20 Range/Units 22:34 22:34 23:00 WBC 12.1 H (3.8-10.6) k/uL Neutrophils # 9.5 H (1.3-7.7) k/uL BUN 20 H (7-17) mg/dL Glucose 127 H (74-99) mg/dL Urine Appearance Cloudy H (Clear) Urine Protein Trace H (Negative) Ur Leukocyte Esterase Large H (Negative) Urine WBC 41 H (0-5) /hpf Urine Bacteria Rare H (None) /hpf Urine Mucus Occasional H (None) /hpf Microbiology - Last 24 Hours (Table) 09/06/20 23:00 Urine Culture - Preliminary Urine,Clean Catch Thrombosis Risk Factor Assmnt - Choose All That Apply Any of the Below Risk Factors Present?: Yes Each Factor Represents 1 point: Medical pt on bed rest Other Risk Factors: Yes Each Risk Factor Represents 2 Points: Age 61-74 years Thrombosis Risk Factor Assessment Total Risk Factor Score: 3 Thrombosis Risk Factor Assessment Level: Moderate Risk Assessment and Plan Plan: -Sepsis: Secondary to diverticulitis and possible peridiverticular abscess. Continue with the Rocephin and metronidazole. Continue with pain medications, Gen. surgery was consulted. -No evidence of urinary tract infection -Hypertension: Patient blood pressures are low normal will hold off on lisinopril and diuretic, patient will continue with metoprolol -History of super ventricular tachycardia: Continue with the metoprolol -Type 2 diabetes mellitus -Coronary artery disease -Gastroesophageal reflux disease -Hyperlipidemia DVT prophylaxis: Early ambulation
[2020-09-07 12:25] LABS: Basophils # (A) 0.1 k/uL (0-0.2); Basophils % (A) 1 %; Eosinophils # (A) 0.1 k/uL (0-0.7); Eosinophils % (A) 1 %; HCT 33.3 % (34.0-46.0); HGB 11.5 gm/dL (11.4-16.0); Lymphocytes % (A) 24 %; MCH 28.5 pg (25.0-35.0); MCHC 34.6 g/dL (31.0-37.0); MCV 82.4 fL (80.0-100.0); Mean Platelet Volume 7.8; Monocytes # (A) 0.4 k/uL (0-1.0); Monocytes % (A) 5 %; Neutrophils # (A) 5.5 k/uL (1.3-7.7); Neutrophils % (A) 68 %; Platelet Count 178 k/uL (150-450); RBC 4.05 m/uL (3.80-5.40); RDW 13.8 % (11.5-15.5); WBC 8.1 k/uL (3.8-10.6)
[2020-09-07] MEDS ORDERED: HYDROcodone/APAP 7.5-325MG 1 EACH TAB PO SCH ×2 (14:00→21:00)
[2020-09-07] MEDS ORDERED: ONDANSETRON 4 MG/2 ML VIAL IVP PRN (15:05)
[2020-09-07] MEDS: FLUTICASONE 50MCG/SPRAY NASAL 16GM EA NOSTRIL SCH (20:35)
[2020-09-07] MEDS: GABAPENTIN 300 MG CAP PO SCH (20:36)
[2020-09-07] MEDS: traZODone HCL 50 MG TAB PO SCH (20:36)
[2020-09-07] MEDS: METOPROLOL SUCCINATE (ER) 25 MG TAB.ER.24H PO SCH (20:36)
[2020-09-07] MEDS: CLOTRIMAZOLE/BETAMETH 1-0.05% CREAM 45 GM TUBE TOPICAL SCH (20:36)
[2020-09-07] MEDS: NORTRIPTYLINE 10 MG CAP PO SCH (20:36)
[2020-09-07] MEDS: VIT A,C & E-LUTEIN-MINERALS 1 EACH TAB PO SCH (20:36)
[2020-09-07 21:14] LABS: Glucose,Whole Blood 97 mg/dL (75-99)
[2020-09-08 06:06] LABS: HCT 32.1 % (34.0-46.0); HGB 11.2 gm/dL (11.4-16.0); MCH 28.8 pg (25.0-35.0); MCHC 34.9 g/dL (31.0-37.0); MCV 82.6 fL (80.0-100.0); Platelet Count 164 k/uL (150-450); RBC 3.89 m/uL (3.80-5.40); RDW 13.7 % (11.5-15.5); WBC 4.4 k/uL (3.8-10.6)
[2020-09-08 07:19] LABS: Glucose,Whole Blood 99 mg/dL (75-99)
[2020-09-08] MEDS: HYDROcodone/APAP 7.5-325MG 1 EACH TAB PO PRN (07:32)
[2020-09-08] MEDS: metroNIDAZOLE-NS PMX 500 MG in SALINE 1 100ML.BAG IVPB SCH (07:32)
[2020-09-08] MEDS: PANTOPRAZOLE 40 MG TABLET PO SCH (07:32)
[2020-09-08] MEDS: VIT A,C & E-LUTEIN-MINERALS 1 EACH TAB PO SCH ×2 (07:32→20:41)
[2020-09-08] MEDS: ISOSORBIDE MONONITRATE ER 30 MG TAB.ER.24H PO SCH (07:32)
[2020-09-08] MEDS: FENOFIBRATE 160 MG TAB PO SCH (07:35)
[2020-09-08] MEDS: CLOTRIMAZOLE/BETAMETH 1-0.05% CREAM 45 GM TUBE TOPICAL SCH ×2 (07:35→20:43)
[2020-09-08] MEDS: FLUTICASONE 50MCG/SPRAY NASAL 16GM EA NOSTRIL SCH ×2 (07:35→20:42)
[2020-09-08] MEDS: IOPAMIDOL CONTRAST (ORAL USE) VIAL PO PRN ×2 (10:31→11:29)
[2020-09-08 11:00] LABS: African American GFR (CKD) 99.6 (60.0-200.0); Anion Gap 11.7 mmol/L (4.00-12.00); BUN/Creat Ratio 18.57 Ratio (12.00-20.00); Calcium 9.1 mg/dL (8.7-10.3); Carbon Dioxide 25.3 mmol/L (21.6-31.8); Potassium 3.4 mmol/L (3.5-5.5)
--- NOTE | 2020-09-08 11:12 | P.PN ---
Subjective Progress Note Date: 09/08/20 CHIEF COMPLAINT: Left lower quadrant abdominal pain HISTORY OF PRESENT ILLNESS: Patient is being followed for peridiverticular abscess with diverticulitis. Patient is still reporting a lot of abdominal pain in that left lower quadrant. She reports no improvement in her pain. She feels that her pain is the same since admission. She is currently on a clear liquid diet. Denies any nausea or vomiting. Afebrile. WBC is 4.4 PHYSICAL EXAM: VITAL SIGNS: Reviewed. GENERAL: Well-developed in no acute distress. HEENT: No sclera icterus. Extraocular movements grossly intact. Moist buccal mucosa. Head is atraumatic, normocephalic. ABDOMEN: Soft. Tenderness in the left lower quadrant NEUROLOGIC: Alert and oriented. Cranial nerves II through XII grossly intact. ASSESSMENT: 1. Peridiverticular abscess and diverticulitis of the mid small bowel in the left lower quadrant 2. Prior history of diverticulitis and bowel resection in 1998 PLAN: -Check computed tomography scan of abdomen and pelvis with oral contrast due to abdominal pain -Continue IV antibiotics Rocephin and Flagyl -Continue IV fluids -Continue clear liquid diet Physician Front Office Agent note has been reviewed by physician. Signing provider agrees with the documented findings, assessment, and plan of care. Objective - Vital Signs Vital signs: Vital Signs Temp 97.6 F 09/08/20 07:42 Pulse 64 09/08/20 07:42 Resp 17 09/08/20 07:42 BP 115/74 09/08/20 07:42 Pulse Ox 98 09/08/20 07:42 Intake & Output 09/07/20 09/08/20 09/08/20 18:59 06:59 18:59 Intake Total 100 Balance 100 Intake: Oral 100 Other: Voiding Method Toilet Toilet Toilet # Voids 6 1 - Labs CBC & Chem 7: 09/08/20 05:50 09/08/20 05:50 Labs: Abnormal Lab Results - Last 24 Hours (Table) 09/07/20 09/08/20 09/08/20 Range/Units 11:53 05:50 05:50 Hgb 11.2 L (11.4-16.0) gm/dL Hct 33.3 L 32.1 L (34.0-46.0) % Potassium 3.4 L (3.5-5.5) mmol/L Microbiology - Last 24 Hours (Table) 09/06/20 22:34 Blood Culture - Preliminary Blood No Growth after 24 hours 09/06/20 23:00 Urine Culture - Preliminary Urine,Clean Catch
[2020-09-08 12:09] LABS: Glucose,Whole Blood 116 mg/dL (75-99)
--- NOTE | 2020-09-08 12:16 | CT ---
EXAMINATION TYPE: CT abdomen pelvis wo con DATE OF EXAM: 09/08/2020 COMPARISON: 09/06/2020 INDICATION: abdominal pain DLP: 627.9 mGycm, Automated exposure control for dose reduction was used. CONTRAST: 0 mL of Isovue 300. Study performed with Oral Contrast TECHNIQUE: Axial images were obtained from above the diaphragm to the pubic rami in the axial plane a t 5 mm thick sections. Reconstructed images are reviewed on the computer in the coronal plane. FINDINGS: Limited CT sections are obtained the lung bases. The lung bases are clear. There is a moderately la rge hiatal hernia. Minimal left pleural effusion is present at the diaphragm CT ABDOMEN: Liver: Normal Spleen: Few calcifications are scattered within the spleen Pancreas: Normal Adrenal glands: The adrenal glands are normal. Gallbladder: Normal Kidneys: No masses are evident. No hydronephrosis is present. No cysts are present. No renal stone s are identified. Aorta: Vascular calcification is within the aorta. Inferior vena cava: Normal. CT PELVIS: Multiple scattered diverticuli are present throughout the colon. No suspicious adjacent inflammatory change suggest acute diverticulitis is evident. There are loops of bowel which are incompletely diste nded or lack oral contrast limiting their evaluation. Appendix: Not identified. Correlate with the surgical history. No suspicious inflammatory changes are identified Urinary bladder: Normal. Genitourinary structures: Uterus and ovaries are not identified. Osseous structures: No suspicious lytic or sclerotic lesions. Facet degenerative changes are in the l ower lumbar spine. IMPRESSIONS: 1. Moderately large hiatal hernia. 2. Minimal left pleural effusion. 3. Diverticulosis throughout the colon without evidence of acute diverticulitis.
[2020-09-08] MEDS ORDERED: POTASSIUM CHLORIDE ER 20 MEQ TAB.ER PO STA (12:42)
--- NOTE | 2020-09-08 12:45 | P.PN ---
Subjective Progress Note Date: 09/08/20 75-year-old pleasant female was seen in ER couple days ago with complains of a suprapubic pain and ability to have urinary tract infection was discharged home. Comes Back Today with the Same Pain 2 Days Ago Patient Had Fever. Patient Didn't Have a Fever since She Came in Here Patient Was Having Multiple Episodes of Nausea Vomiting. Patient Is Bit Dark Urine Is Bit Abnormal but Doesn't Have Any Dysuria. Doesn't Appear to Have Urinary Tract Infection Patient Does Have Diverticulitis in the mid small bowel with peridiverticular abscess. 09/08/2020 Patient is seen and evaluated in follow-up with no acute overnight issues. Patient continues to have some abdominal discomfort along with nausea. Patient is currently maintained on clear liquids and will continue at this time. Patient states her nausea occurs every time she eats. Patient is currently maintained on Flagyl along with ceftriaxone for diverticulitis with abscess. Patient to undergo CT abdomen with oral contrast today and is currently pending. Review of systems: Constitutional: No reports of fatigue, fever, or chills Cardiovascular: No reports of chest pain or palpitations Respiratory: No reports of shortness of breath or cough GI: reports nausea with meals, no reports of vomiting, or diarrhea : No reports of dysuria or retention Neurovascular: No reports of weakness or numbness All medications have been reviewed Objective - Vital Signs Vital signs: Vital Signs Temp 97.6 F 09/08/20 07:42 Pulse 64 09/08/20 07:42 Resp 17 09/08/20 07:42 BP 115/74 09/08/20 07:42 Pulse Ox 98 09/08/20 07:42 Intake & Output 09/07/20 09/08/20 09/08/20 18:59 06:59 18:59 Intake Total 100 Balance 100 Intake: Oral 100 Other: Voiding Method Toilet Toilet Toilet # Voids 6 1 - Exam GENERAL: The patient is alert and oriented x3, not in any acute distress currently sitting up in the chair. Well developed, well nourished. HEENT: Pupils are round and equally reacting to light. EOMI. No scleral icterus. No conjunctival pallor. Normocephalic, atraumatic. No pharyngeal erythema. No thyromegaly. CARDIOVASCULAR: S1 and S2 present. No murmurs, rubs, or gallops. PULMONARY: Chest is clear to auscultation, no wheezing or crackles. ABDOMEN: Soft, suprapubic tenderness on palpation, nondistended, normoactive bowel sounds. No palpable organomegaly. MUSCULOSKELETAL: No joint swelling or deformity. EXTREMITIES: No cyanosis, clubbing, or pedal edema. NEUROLOGICAL: Gross neurological examination did not reveal any focal deficits. SKIN: No rashes. - Labs CBC & Chem 7: 09/08/20 05:50 09/08/20 05:50 Labs: Abnormal Lab Results - Last 24 Hours (Table) 09/07/20 09/08/20 09/08/20 Range/Units 11:53 05:50 05:50 Hgb 11.2 L (11.4-16.0) gm/dL Hct 33.3 L 32.1 L (34.0-46.0) % Potassium 3.4 L (3.5-5.5) mmol/L Microbiology - Last 24 Hours (Table) 09/06/20 22:34 Blood Culture - Preliminary Blood No Growth after 24 hours 09/06/20 23:00 Urine Culture - Preliminary Urine,Clean Catch Assessment and Plan Assessment: -Sepsis: Secondary to diverticulitis and possible bean-diverticular abscess. C ontinue with the Rocephin and metronidazole. surgery following and patient awaiting repeat CT abdomen today -No evidence of urinary tract infection -Mild hyponatremia, potassium is 3.4 and will replace -Hypertension: blood pressures continue to be on the lower side and will continue to monitor and hold losartan and diuretics -History of super ventricular tachycardia: Maintained on metoprolol 25 mg daily -Type 2 diabetes mellitus, continue with Accu-Cheks before meals and at bedtime -Coronary artery disease -Gastroesophageal reflux disease -Hyperlipidemia -DVT prophylaxis: Early ambulation Plan: Continue current medications. Patient is maintained on IV antibiotics and will continue at this time. Continue with clear liquids and advance slowly as tolerated. Awaiting CT abdomen to reassess. Surgery is following. Patient's potassium was found to be slightly low and will replace. Will repeat a.m. labs and continue to monitor closely. Further recommendations to follow. Possible discharge in 24 hours.
[2020-09-08] MEDS: metroNIDAZOLE 500 MG TAB PO SCH ×2 (15:16→23:45)
[2020-09-08 17:16] LABS: Glucose,Whole Blood 80 mg/dL (75-99)
[2020-09-08] MEDS: MORPHINE SULFATE 4 MG/ML SYRINGE IVP PRN (19:27)
[2020-09-08 20:04] LABS: Glucose,Whole Blood 111 mg/dL (75-99)
[2020-09-08] MEDS: NORTRIPTYLINE 10 MG CAP PO SCH (20:41)
[2020-09-08] MEDS: METOPROLOL SUCCINATE (ER) 25 MG TAB.ER.24H PO SCH (20:42)
[2020-09-08] MEDS: GABAPENTIN 300 MG CAP PO SCH (20:42)
[2020-09-08] MEDS: traZODone HCL 50 MG TAB PO SCH (20:42)
[2020-09-09 07:02] LABS: Glucose,Whole Blood 97 mg/dL (75-99)
[2020-09-09] MEDS: metroNIDAZOLE 500 MG TAB PO SCH ×3 (07:50→23:19)
[2020-09-09] MEDS: PANTOPRAZOLE 40 MG TABLET PO SCH (07:50)
[2020-09-09] MEDS: ISOSORBIDE MONONITRATE ER 30 MG TAB.ER.24H PO SCH (07:50)
[2020-09-09] MEDS: FENOFIBRATE 160 MG TAB PO SCH (07:51)
[2020-09-09] MEDS: FLUTICASONE 50MCG/SPRAY NASAL 16GM EA NOSTRIL SCH ×2 (07:52→20:23)
[2020-09-09] MEDS: VIT A,C & E-LUTEIN-MINERALS 1 EACH TAB PO SCH ×2 (07:52→20:22)
[2020-09-09] MEDS: CLOTRIMAZOLE/BETAMETH 1-0.05% CREAM 45 GM TUBE TOPICAL SCH ×2 (07:53→20:23)
[2020-09-09 08:20] LABS: Basophils % (A) 1 %; Eosinophils # (A) 0.1 k/uL (0-0.7); Eosinophils % (A) 3 %; HGB 11.2 gm/dL (11.4-16.0); Lymphocytes # (A) 1.7 k/uL (1.0-4.8); Lymphocytes % (A) 46 %; MCHC 33.8 g/dL (31.0-37.0); MCV 82.7 fL (80.0-100.0); Monocytes # (A) 0.2 k/uL (0-1.0); Monocytes % (A) 5 %; Neutrophils # (A) 1.6 k/uL (1.3-7.7); Neutrophils % (A) 43 %; Platelet Count 190 k/uL (150-450); RBC 3.99 m/uL (3.80-5.40); RDW 13.8 % (11.5-15.5); WBC 3.8 k/uL (3.8-10.6)
[2020-09-09 11:25] LABS: Glucose,Whole Blood 93 mg/dL (75-99)
--- NOTE | 2020-09-09 11:29 | P.PN ---
Subjective Progress Note Date: 09/09/20 CHIEF COMPLAINT: Left lower quadrant abdominal pain HISTORY OF PRESENT ILLNESS: Patient is being followed for peridiverticular abscess with diverticulitis. Patient reports feeling better today. She is st ill having some pain in the left lower quadrant but decreased since admission. She was able to have a regular bowel movement. No blood in stool. Denies any nausea or vomiting. Currently on a clear liquid diet. Computed tomography scan of the abdomen and pelvis with oral contrast shows a moderately large hiatal hernia, minimal left pleural effusion and diverticulosis throughout the colon without evidence of acute diverticulitis. Afebrile. WBC 3.8 BMP pending PHYSICAL EXAM: VITAL SIGNS: Reviewed. GENERAL: Well-developed in no acute distress. HEENT: No sclera icterus. Extraocular movements grossly intact. Moist buccal mucosa. Head is atraumatic, normocephalic. ABDOMEN: Soft. Tenderness in the left lower quadrant NEUROLOGIC: Alert and oriented. Cranial nerves II through XII grossly intact. ASSESSMENT: 1. Peridiverticular abscess and diverticulitis of the mid small bowel in the left lower quadrant. Improvement noted on CAT scan 2. Prior history of diverticulitis and bowel resection in 1998 3. Large hiatal hernia PLAN: -Continue IV antibiotics Rocephin and Flagyl -Continue IV fluids -Advanced to full liquids -Possible discharge home tomorrow if patient is tolerating diet and pain continues to improve Physician Brush Sander note has been reviewed by physician. Signing provider agrees with the documented findings, assessment, and plan of care. Objective - Vital Signs Vital signs: Vital Signs Temp 98.3 F 09/09/20 08:10 Pulse 62 09/09/20 08:10 Resp 19 09/09/20 08:10 BP 136/77 09/09/20 08:10 Pulse Ox 98 09/09/20 08:10 Intake & Output 09/08/20 09/09/20 09/09/20 18:59 06:59 18:59 Intake Total 200 Balance 200 Intake: Oral 200 Other: Voiding Method Toilet Toilet Toilet # Voids 1 2 - Labs CBC & Chem 7: 09/09/20 06:49 09/09/20 06:49 Labs: Abnormal Lab Results - Last 24 Hours (Table) 09/08/20 09/08/20 09/09/20 Range/Units 12:06 20:02 06:49 Hgb 11.2 L (11.4-16.0) gm/dL Hct 33.0 L (34.0-46.0) % POC Glucose (mg/dL) 116 H 111 H (75-99) mg/dL Microbiology - Last 24 Hours (Table) 09/06/20 23:00 Urine Culture - Final Urine,Clean Catch Escherichia coli 09/06/20 22:34 Blood Culture - Preliminary Blood No Growth after 48 hours
[2020-09-09] MEDS: HYDROcodone/APAP 7.5-325MG 1 EACH TAB PO PRN (12:26)
[2020-09-09 13:38] LABS: African American GFR (CKD) 84.8 (60.0-200.0); Anion Gap 8.8 mmol/L (4.00-12.00); BUN/Creat Ratio 12.5 Ratio (12.00-20.00); Calcium 9.2 mg/dL (8.7-10.3); Carbon Dioxide 26.2 mmol/L (21.6-31.8); Non-African American GFR(CKD) 73.1 (60.0-200.0); Potassium 3.9 mmol/L (3.5-5.5)
[2020-09-09 16:43] LABS: Glucose,Whole Blood 122 mg/dL (75-99)
--- NOTE | 2020-09-09 19:31 | P.PN ---
Progress Note - Text Progress Note Date: 09/09/20 Presenting complaint: Suprapubic pain Interval history: 75-year-old pleasant female was seen in ER couple days ago with complains of a suprapubic pain and ability to have urinary tract infection was discharged home. Comes Back Today with the Same Pain 2 Days Ago Patient Had Fever. Patient Did n't Have a Fever since She Came in Here Patient Was Having Multiple Episodes of Nausea Vomiting. Patient Is Bit Dark Urine Is Bit Abnormal but Doesn't Have Any Dysuria. UA positive. Started IV ceftriaxone. Today-the bed. Slight suprapubic pain. No fever no chills. Feeling better. Oral intake improving. Active Medications Hydrocodone Bitart/Acetaminophen (Hydrocodone/Apap 7.5-325mg 1 Each Tab) 1 each PO BID@0900,1400 PRN PRN Reason: Breakthrough Pain Last Admin: 09/09/20 12:26 Dose: 1 each Documented by: Hydrocodone Bitart/Acetaminophen (Hydrocodone/Apap 7.5-325mg 1 Each Tab) 0.5 each PO HS PRN PRN Reason: Breakthrough Pain Betamethasone/Clotrimazole (Clotrimazole/Betameth 1-0.05% Cream 45 Gm Tube) 1 applic TOPICAL BID [facility] Last Admin: 09/09/20 07:53 Dose: 1 applic Documented by: Fenofibrate (Fenofibrate 160 Mg Tab) 160 mg PO DAILY [facility] Last Admin: 09/09/20 07:51 Dose: 160 mg Documented by: Fluticasone Propionate (Fluticasone 50mcg/[place] Nasal 16gm) 1 spray EA NOSTRIL BID [facility] Last Admin: 09/09/20 07:52 Dose: Not Given Documented by: Gabapentin (Gabapentin 300 Mg Cap) 300 mg PO HS [facility] Last Admin: 09/08/20 20:42 Dose: 300 mg Documented by: Ceftriaxone Sodium 2 gm/ (Sodium Chloride) 50 mls @ 100 mls/hr IVPB Q24HR [facility] Last Admin: 09/09/20 07:53 Dose: 100 mls/hr Documented by: Isosorbide Mononitrate (Isosorbide Mononitrate Er 30 Mg Tab.Er.24h) 30 mg PO DAILY [facility] Last Admin: 09/09/20 07:50 Dose: 30 mg Documented by: Metoprolol Succinate (Metoprolol Succinate (Er) 25 Mg Tab.Er.24h) 25 mg PO [facility] Last Admin: 09/08/20 20:42 Dose: 25 mg Documented by: Metronidazole (Metronidazole 500 Mg Tab) 500 mg PO Q8HR [facility] Last Admin: 09/09/20 16:39 Dose: 500 mg Documented by: Morphine Sulfate (Morphine Sulfate 4 Mg/Ml Syringe) 4 mg IVP Q4HR PRN PRN Reason: Pain Last Admin: 09/08/20 19:27 Dose: 4 mg Documented by: Multivitamins/Minerals (Vit A,C & H-Pbdyga-Ohzmhzuj 1 Each Tab) 1 each PO BID [facility] Last Admin: 09/09/20 07:52 Dose: 1 each Documented by: Nortriptyline HCl (Nortriptyline 10 Mg Cap) 10 mg PO [facility] Last Admin: 09/08/20 20:41 Dose: Not Given Documented by: Ondansetron HCl (Ondansetron 4 Mg/2 Ml Vial) 4 mg IVP Q6HR PRN PRN Reason: Nausea And Vomiting Last Admin: 09/08/20 12:07 Dose: 4 mg Documented by: Pantoprazole Sodium (Pantoprazole 40 Mg Tablet) 40 mg PO DAILY@0730 [facility] Last Admin: 09/09/20 07:50 Dose: 40 mg Documented by: Trazodone HCl (Trazodone Hcl 50 Mg Tab) 50 mg PO [facility] Last Admin: 09/08/20 20:42 Dose: 50 mg Documented by: Review of systems: Was done for constitutional, cardiovascular, GI, pulmonary. relevant finding as above On examination: VITAL SIGNS: 98.3, 62, 19, 136/77, 98% room air GENERAL APPEARANCE: Laying in bed, comfortable. HEENT: Normal external appearance of nose and ear. Oral cavity normal EYES: Pupils equal. Conjunctiva normal. NECK: JVD not raised. Mass not palpable. RESPIRATORY: Respiratory effort normal. Lungs clear to auscultation. CARDIOVASCULAR: First and second sounds normal. No edema. ABDOMEN: Soft. Mild suprapubic tenderness, no guarding rigidity Liver and spleen not palpable. . No mass palpable. PSYCHIATRY: Alert and oriented x3. Mood and affect normal. INVESTIGATIONS, reviewed in the clinical context: White count 8.1 hemoglobin 11.5 platelets 178 Previous testing: White count 12.1 hemoglobin 13.3 potassium 3.5 UA positive for leukoesterase, WBC, bacteria Coronavirus PCR-not detected Assessment: -Acute UTI with cystitis causing suprapubic pain, cultures growing gram-negative bacilli --Diabetes mellitus type 2 -Chronic fibromyalgia -GERD -Hyperlipidemia -Essential hypertension -Primary osteoarthritis -Hiatal hernia -Restless leg syndrome -Chronic diverticulosis-asymptomatic -Peripheral neuropathy Plan: Continue current medication treatment plan. Saw the patient this morning. Pending urine culture. Continue IV ceftriaxone. Discussed with the patient. Increase activity.
[2020-09-09] MEDS ORDERED: ENOXAPARIN 40 MG/0.4 ML SYRINGE SQ SCH (20:00)
[2020-09-09] MEDS: METOPROLOL SUCCINATE (ER) 25 MG TAB.ER.24H PO SCH (20:22)
[2020-09-09] MEDS: GABAPENTIN 300 MG CAP PO SCH (20:22)
[2020-09-09 20:23] LABS: Glucose,Whole Blood 166 mg/dL (75-99)
[2020-09-09] MEDS: NORTRIPTYLINE 10 MG CAP PO SCH (20:23)
[2020-09-09] MEDS: traZODone HCL 50 MG TAB PO SCH (20:23)
--- NOTE | 2020-09-09 20:24 | CDI ---
Documentation Clarification Form Date: 09/09/2020 08:06:36 PM From: Gisell Soler RN CCDS Admit Date: 09/07/2020 12:38:00 AM Patient Name: Karolina Augustin Visit Number: [id number] Discharge Date: ATTENTION: The Clinical Documentation Specialists (CDI) and [facility] Coding Staff appreciate your assistance in clarifying documentation. Please respond to the clarification below the line at the bottom and electronically sign. The CDI & [facility] Coding staff will review the response and follow-up if needed. Please note: Queries are made part of the Legal Health Record. If you have any questions, please contact the author of this message via ITS. Dr. Jim Molina The diagnosis Sepsis was documented in the H&P 09/07 and internal medicine progress note 09/08 but is not noted in subsequent documentation. History/Risk Factors: 75-year-old female presents to the ED with abdominal pain two days ago and presented again with abdominal pain, nausea and vomiting. Medical history: DM, Angina, Fibromyalgia, Diverticulitis and HTN Clinical Indicators: VSS 09/06: B/P 110/67; HR 85; Temp 99.0F Oral; RR 22; SpO2 97% ra LABS 09/06: Wbc 12.1; Neutrophils 9.5; Lactic acid 1.2 09/09 Urine culture: Escherichia coli CT ABD 09/06: Diverticulosis of the sigmoid colon. There is evidence of bena diverticular abscess and diverticulitis of the mid small bowel in the left lower quadrant. Treatment: 09/06 Ceftriaxone Ivp x1; 09/07 Ceftriaxone 1gm Ivpb x1; 09/08 Ceftriaxone 2gm Ivpb Q24HR; 09/07 Flagyl 500mg IVPB Q8HR; Changed 09/08 Flagyl 500mg PO Q8HR; 09/07 0.9NS 100cc/HR d/c 09/07 Please clarify if the Sepsis was: Present/active this admission Treated and resolved this admission Ruled out Other, please specify Clinically unable to determine (Last Query Form Revision: April 2019) Sepsis/active this admission MTDD
[2020-09-10 06:54] LABS: Glucose,Whole Blood 110 mg/dL (75-99)
[2020-09-10] MEDS: metroNIDAZOLE 500 MG TAB PO SCH (07:29)
[2020-09-10] MEDS: HYDROcodone/APAP 7.5-325MG 1 EACH TAB PO PRN (07:29)
[2020-09-10] MEDS: FENOFIBRATE 160 MG TAB PO SCH (07:29)
[2020-09-10] MEDS: PANTOPRAZOLE 40 MG TABLET PO SCH (07:29)
[2020-09-10] MEDS: VIT A,C & E-LUTEIN-MINERALS 1 EACH TAB PO SCH (07:30)
[2020-09-10] MEDS: ISOSORBIDE MONONITRATE ER 30 MG TAB.ER.24H PO SCH (07:30)
[2020-09-10] MEDS: FLUTICASONE 50MCG/SPRAY NASAL 16GM EA NOSTRIL SCH (07:38)
[2020-09-10] MEDS: CLOTRIMAZOLE/BETAMETH 1-0.05% CREAM 45 GM TUBE TOPICAL SCH (07:38)
[2020-09-10 07:56] VITALS: BP 150/87; PULSE 54; RESP 17; TEMP 98.3
[2020-09-10 11:32] LABS: Glucose,Whole Blood 127 mg/dL (75-99)
[2020-09-10] MEDS ORDERED: AMOXIC-POT CLAV 875-125MG 1 EACH TAB PO STA (12:29)
[2020-09-10] MEDS ORDERED: NYSTATIN 100,000 UNIT/ML SUSP 500,000 UNIT/5 ML CUP PO SCH (13:00)
--- NOTE | 2020-09-10 13:58 | P.PN ---
Subjective Progress Note Date: 09/10/20 CHIEF COMPLAINT: Left lower quadrant abdominal pain HISTORY OF PRESENT ILLNESS: Patient is being followed for peridiverticular abscess with diverticulitis. Patient's abdominal pain has resolved. She is t olerating diet. She is afebrile. She is having bowel movements. PHYSICAL EXAM: VITAL SIGNS: Reviewed. GENERAL: Well-developed in no acute distress. HEENT: No sclera icterus. Extraocular movements grossly intact. Moist buccal mucosa. Head is atraumatic, normocephalic. ABDOMEN: Soft. Tenderness in the left lower quadrant NEUROLOGIC: Alert and oriented. Cranial nerves II through XII grossly intact. ASSESSMENT: 1. Peridiverticular abscess and diverticulitis of the mid small bowel in the left lower quadrant. Symptoms have resolved. Improvement noted on CAT scan 2. Prior history of diverticulitis and bowel resection in 1998 3. Large hiatal hernia PLAN: -Patient is stable from surgical standpoint for discharge -Continue antibiotics per medicine service -Patient help with Dr. Squires in 1 week Physician [employer] Supervisor note has been reviewed by physician. Signing provider agrees with the documented findings, assessment, and plan of care. Objective - Vital Signs Vital signs: Vital Signs Temp 98.3 F 09/10/20 07:55 Pulse 54 L 09/10/20 07:55 Resp 17 09/10/20 08:30 BP 150/87 09/10/20 07:55 Pulse Ox 96 09/10/20 07:55 Intake & Output 09/09/20 09/10/20 09/10/20 18:59 06:59 18:59 Intake Total 1290 Balance 1290 Intake: Oral 1290 Other: Voiding Method Toilet Toilet Toilet # Voids 3 2 - Labs CBC & Chem 7: 09/09/20 06:49 09/09/20 06:49 Labs: Abnormal Lab Results - Last 24 Hours (Table) 09/09/20 09/09/20 09/10/20 Range/Units 16:41 20: 06:52 POC Glucose (mg/dL) 122 H 166 H 110 H (75-99) mg/dL 09/10/20 Range/Units 11:29 POC Glucose (mg/dL) 127 H (75-99) mg/dL Microbiology - Last 24 Hours (Table) 09/06/20 22:34 Blood Culture - Preliminary Blood No Growth after 72 hours 09/06/20 23:00 Urine Culture - Final Urine,Clean Catch Escherichia coli
--- NOTE | 2020-09-10 20:36 | P.DS ---
Providers Date of admission: 09/07/20 00:38 Expected date of discharge: 09/10/20 Attending physician: Jim Molina Consults: 09/07/20 00:52 Consult Physician Routine Consulting Provider: Bonifacio Squires Consult Reason/Comments: Ticitis?abscess Do you want consulting provider notified?: Yes Primary care physician: [facility]– [place] Course: Presenting complaint: Suprapubic pain Interval history: 75-year-old pleasant female was seen in ER couple days ago with complains of a suprapubic pain and ability to have urinary tract infection was discharged home. Comes Back Today with the Same Pain 2 Days Ago Patient Had Fever. Patient Didn't Have a Fever since She Came in Here Patient Was Having Multiple Episodes of Nausea Vomiting. Patient Is Bit Dark Urine Is Bit Abnormal but Doesn't Have Any Dysuria. UA positive. Started IV ceftriaxone. Initial computed tomography scan of the abdomen showed-peridiverticular abscess and diverticulitis of the mid small bowel in the left lower quadrant. Repeat computed tomography scan did show significant improvement. Today-no abdominal pain. No nausea vomiting. Eating well. Keen to go home. Had a bowel movement. Cleared by surgery. Patient was started on Augmentin and she tolerated the dose well.. Discussion and discharge planning more than 35 minutes Consultation: Dr. Squires from general surgery On examination: VITAL SIGNS: 98.3, 54, 17, 150/87, 96% room air GENERAL APPEARANCE: Sitting up in chair, comfortable HEENT: Normal external appearance of nose and ear. Oral cavity normal EYES: Pupils equal. Conjunctiva normal. NECK: JVD not raised. Mass not palpable. RESPIRATORY: Respiratory effort normal. Lungs clear to auscultation. CARDIOVASCULAR: First and second sounds normal. No edema. ABDOMEN: Soft. No tenderness, no guarding rigidity Liver and spleen not palpable. . No mass palpable. PSYCHIATRY: Alert and oriented x3. Mood and affect normal. INVESTIGATIONS, reviewed in the clinical context: White count 8.1 hemoglobin 11.5 platelets 178 Previous testing: White count 12.1 hemoglobin 13.3 potassium 3.5 UA positive for leukoesterase, WBC, bacteria Coronavirus PCR-not detected Computed tomography scan of the abdomen pelvis-peridiverticular abscess and diverticulitis of the mid small bowel in the left lower quadrant. Assessment: -peridiverticular abscess and diverticulitis of the mid small bowel in the left lower quadrant. -Acute UTI with cystitis causing suprapubic pain, cultures growing gram-negative bacilli --Diabetes mellitus type 2 -Chronic fibromyalgia -GERD -Hyperlipidemia -Essential hypertension -Primary osteoarthritis -Hiatal hernia -Restless leg syndrome -Colonic diverticulosis-asymptomatic -Peripheral neuropathy Disposition: Home Patient Condition at Discharge: Stable Plan - Discharge Summary Discharge Rx Participant: No New Discharge Prescriptions: New Amoxicillin/Potassium Clav [Augmentin 875-125 Tablet] 1 tab PO BID #28 tab metroNIDAZOLE [Flagyl] 500 mg PO Q8HR #42 tab Continue Fenofibrate [Lofibra] 160 mg PO DAILY Evolocumab [Repatha Syringe] 140 mg SQ Q14D Gabapentin [Neurontin] 300 mg PO HS HYDROcodone/APAP 7.5-325MG [[place] 7.5-325] 1 tab PO BID@0900,1400 Omeprazole [PriLOSEC] 20 mg PO DAILY HYDROcodone/APAP 7.5-325MG [[place] 7.5-325] 0.5 tab PO HS metFORMIN HCL [Glucophage] 1,000 mg PO BID Isosorbide Mononitrate ER [Imdur] 30 mg PO DAILY Clotrimazole/Betamethasone Dip [Lotrisone Cream] 1 applic TOPICAL BID traZODone HCL [Desyrel] 50 mg PO HS Nortriptyline HCl [Pamelor] 10 mg PO HS Metoprolol Succinate [Toprol XL] 25 mg PO HS Vit C/E/Zn/Coppr/Lutein/Zeaxan [Preservision Areds 2 Softgel] 1 cap PO BID Furosemide [Lasix] 20 mg PO Q48H Fluticasone Nasal [place] [Flonase Nasal [place]] 1 spr EA NOSTRIL BID Cholecalciferol [Vitamin D3 (25 Mcg = 1000 Iu)] 1,000 unit PO DAILY Allergy Relief 1 tab PO DAILY Changed Losartan/Hydrochlorothiazide [Hyzaar 100-25 Tablet] 1 tab PO HS #0 Discharge Medication List Evolocumab [Repatha Syringe] 140 mg SQ Q14D 11/17/18 [History] Fenofibrate [Lofibra] 160 mg PO DAILY 11/17/18 [History] Gabapentin [Neurontin] 300 mg PO HS 12/01/19 [History] HYDROcodone/APAP 7.5-325MG [[place] 7.5-325] 1 tab PO BID@0900,1400 12/01/19 [History] Omeprazole [PriLOSEC] 20 mg PO DAILY 12/01/19 [History] Clotrimazole/Betamethasone Dip [Lotrisone Cream] 1 applic TOPICAL BID 09/05/20 [History] HYDROcodone/APAP 7.5-325MG [[place] 7.5-325] 0.5 tab PO HS 09/05/20 [History] Isosorbide Mononitrate ER [Imdur] 30 mg PO DAILY 09/05/20 [History] Metoprolol Succinate [Toprol XL] 25 mg PO HS 09/05/20 [History] Nortriptyline HCl [Pamelor] 10 mg PO HS 09/05/20 [History] metFORMIN HCL [Glucophage] 1,000 mg PO BID 09/05/20 [History] traZODone HCL [Desyrel] 50 mg PO HS 09/05/20 [History] Allergy Relief 1 tab PO DAILY 09/07/20 [History] Cholecalciferol [Vitamin D3 (25 Mcg = 1000 Iu)] 1,000 unit PO DAILY 09/07/20 [History] Fluticasone Nasal [place] [Flonase Nasal [place]] 1 spr EA NOSTRIL BID 09/07/20 [History] Furosemide [Lasix] 20 mg PO Q48H 09/07/20 [History] Vit C/E/Zn/Coppr/Lutein/Zeaxan [Preservision Areds 2 Softgel] 1 cap PO BID 09/07/20 [History] Amoxicillin/Potassium Clav [Augmentin 875-125 Tablet] 1 tab PO BID #28 tab 09/10/20 [Rx] Losartan/Hydrochlorothiazide [Hyzaar 100-25 Tablet] 1 tab PO HS #0 09/10/20 [Rx] metroNIDAZOLE [Flagyl] 500 mg PO Q8HR #42 tab 09/10/20 [Rx] Follow up Appointment(s)/Referral(s): Damir Hernandez DO [Primary Care Provider] - 1-2 days Bonifacio Squires MD [STAFF PHYSICIAN] - 1 Week Patient Instructions/Handouts: Urinary Tract Infection in Women (DC) Activity/Diet/Wound Care/Special Instructions: soft bland diet cbc/cmp - 7 days dc if ok with surgery
== END 2020-09-10 14:32 | disposition home or self-care (01) | DRG 872 ==
LOC: EC 21:35 → 4SSUR 09-07 00:38
PROVIDERS: ADMIT Hospitalist; ATTEND Hospitalist
DX: A41.9 Sepsis, unspecified organism (principal); K57.00 Diverticulitis of small intestine with perforation and abscess without bleeding; E87.1 Hypo-osmolality and hyponatremia; I47.1 Supraventricular tachycardia; E11.42 Type 2 diabetes mellitus with diabetic polyneuropathy; E78.5 Hyperlipidemia, unspecified; G25.81 Restless legs syndrome; H91.90 Unspecified hearing loss, unspecified ear; I10 Essential (primary) hypertension; I25.10 Atherosclerotic heart disease of native coronary artery without angina pectoris; K21.9 Gastro-esophageal reflux disease without esophagitis; K44.9 Diaphragmatic hernia without obstruction or gangrene; K57.30 Diverticulosis of large intestine without perforation or abscess without bleeding; M19.91 Primary osteoarthritis, unspecified site; M79.7 Fibromyalgia; N30.90 Cystitis, unspecified without hematuria; Z79.84 Long term (current) use of oral hypoglycemic drugs; Z79.899 Other long term (current) drug therapy; Z80.0 Family history of malignant neoplasm of digestive organs; Z20.822 Contact with and (suspected) exposure to COVID-19; Z85.828 Personal history of other malignant neoplasm of skin; Z87.891 Personal history of nicotine dependence; Z90.49 Acquired absence of other specified parts of digestive tract; Z90.710 Acquired absence of both cervix and uterus; Z98.42 Cataract extraction status, left eye; Z98.41 Cataract extraction status, right eye; Z96.1 Presence of intraocular lens; Z96.653 Presence of artificial knee joint, bilateral; H40.9 Unspecified glaucoma; Z90.89 Acquired absence of other organs; Z87.01 Personal history of pneumonia (recurrent); M10.9 Gout, unspecified; Z81.8 Family history of other mental and behavioral disorders; Z83.2 Family history of diseases of the blood and blood-forming organs and certain disorders involving the immune mechanism; Z88.0 Allergy status to penicillin; Z88.8 Allergy status to other drugs, medicaments and biological substances; Z88.6 Allergy status to analgesic agent; Z91.011 Allergy to milk products
CPT/HCPCS: 36415; 71045; 74018; 74176; 80048; 80053; 81001; 82150; 82550; 83605; 83690; 84484; 85025; 85027; 87040; 87077; 87086; 87186; 93005; 96361; 96374; 96375; 99284; 99285

== ENCOUNTER 2020-09-21 12:20 | Day surgery (SDC) | payer MEDICARE ==
[2020-09-18 09:00] VITALS: BMI 29.9
[2020-09-21 12:40] VITALS: RESP 16; TEMP 98.5
[2020-09-21] MEDS ORDERED: LIDOCAINE 1% (10MG/ML) FOR IV START INTRADERMA PRN (12:51)
[2020-09-21] MEDS ORDERED: LACTATED RINGERS 1,000 ML IV SCH (12:51)
[2020-09-21] MEDS ORDERED: LIDOCAINE 1% (10MG/ML) FOR IV START SQ ONE (12:54)
[2020-09-21 12:59] LABS: Glucose,Whole Blood 100 mg/dL (75-99)
[2020-09-21] MEDS ORDERED: LIDOCAINE 1% INJ 10MG/ML (20 ML MDV) ONE (14:03)
[2020-09-21] MEDS ORDERED: PROPOFOL 10 MG/ML 20 ML VIAL IV ONE (14:03)
[2020-09-21 14:40] VITALS: BP 169/82; PULSE 75
--- NOTE | 2020-09-21 14:41 | P.GSHP ---
History of Present Illness H&P Date: 09/21/20 Chief Complaint: GERD, dysphagia This is a 75-year-old female with history of GERD and dysphagia. Patient has a known hiatal hernia. She presents today for EGD Past Medical History Past Medical History: Cancer, Chest Pain / Angina, Diabetes Mellitus, Eye Disorder, Fibromyalgia, GERD/Reflux, Hearing Disorder / Deafness, Hyperlipidemia, Hypertension, Osteoarthritis (OA), Pneumonia Additional Past Medical History / Comment(s): Intestinal adhesions, RESTLESS LEG, Hiatal HERNIA, MENIERES, DIVERTICULITIS, GLAUCOMA R eye, (NOT CURRENTLY ON ANY MEDICATIONS FOR) NEUROPATHY bilateral legs, hx anemia. Irregular heartbeat. DDD, Difficulty hearing certain tones. gout, skin cancer, svt, recent admission for intestinal abscess per pt.-just finishing antibiotics today, also had UTI History of Any Multi-Drug Resistant Organisms: None Reported Past Surgical History: Appendectomy, Bladder Surgery, Bowel Resection, Cholecystectomy, Ear Surgery, Heart Catheterization, Hernia Repair, Hysterectomy, Joint Replacement, Orthopedic Surgery, Tonsillectomy, Tubal Ligation Additional Past Surgical History / Comment(s): Direct Microlaryngoscopy and removal left vocal cord mass.RIGHT BREAST BX, Diagnostic laparoscopy with lysis of adhesions. LUBNA KNEE REPLACEMENT, EYE surgery for cataracts bilaterally with lens implants, TUBE IN RIGHT EAR FOR MENIERES, LEFT THUMB SURGERY, hiatal hernia repair, abdominal ventral hernia repair. egd-10/08/18, esophagus stretched x3, spur removal left heel Past Anesthesia/Blood Transfusion Reactions: Previous Problems w/ Anesthesia, Motion Sickness, Postoperative Nausea & Vomiting (PONV) Additional Past Anesthesia/Blood Transfusion Reaction / Comment(s): MENIERE'S, STATES "DIFF INTUBATION-JAW LOCKED UP AFTER A PREVIOUS INTUBATION". "scraped vocal cord-evaluated by Dr Smart" Smoking Status: Never smoker - Past Family History Brother(s) Family Medical History: Cancer Mother Family Medical History: Cancer, CVA/TIA, Deep Vein Thrombosis (DVT) Additional Family Medical History / Comment(s): STOMACH CANCER Father Family Medical History: No Reported History Additional Family Medical History / Comment(s): COMMITTED SUICIDE Medications and Allergies Home Medications Medication Instructions Recorded Confirmed Type Evolocumab [Repatha Syringe] 140 mg SQ Q14D 11/17/18 09/21/20 History Fenofibrate [Lofibra] 160 mg PO DAILY 11/17/18 09/21/20 History Gabapentin [Neurontin] 300 mg PO HS 12/01/19 09/21/20 History HYDROcodone/APAP 7.5-325MG [[place] 1 tab PO Q6H PRN 12/01/19 09/21/20 History 7.5-325] Omeprazole [PriLOSEC] 20 mg PO DAILY 12/01/19 09/21/20 History Isosorbide Mononitrate ER [Imdur] 30 mg PO DAILY 09/05/20 09/21/20 History Metoprolol Succinate [Toprol XL] 25 mg PO DAILY 09/05/20 09/21/20 History Nortriptyline HCl [Pamelor] 10 mg PO HS 09/05/20 09/21/20 History metFORMIN HCL [Glucophage] 1,000 mg PO BID 09/05/20 09/21/20 History traZODone HCL [Desyrel] 50 mg PO HS 09/05/20 09/21/20 History Fluticasone Nasal [place] [Flonase 1 spr EA NOSTRIL BID PRN 09/07/20 09/21/20 History Nasal [place]] Vit C/E/Zn/Coppr/Lutein/Zeaxan 1 cap PO BID 09/07/20 09/21/20 History [Preservision Areds 2 Softgel] metroNIDAZOLE [Flagyl] 500 mg PO Q8HR #42 tab 09/10/20 09/21/20 Rx Losartan/Hydrochlorothiazide 1 tab PO DAILY 09/18/20 09/21/20 History [Hyzaar 100-25 Tablet] Magnesium 500 mg PO DAILY 09/18/20 09/21/20 History Allergies Allergy/AdvReac Type Severity Reaction Status Date / Time Penicillins Allergy Rash/Hives Verified 09/21/20 12:51 Wknrxsz-Zfi-Rpb Reductase Allergy Rash/Hives Verified 09/21/20 12:51 Inhibitor adhesive AdvReac Rash/Hives Verified 09/21/20 12:51 aspirin AdvReac STOMACH Verified 09/21/20 12:51 UPSET/HEARTBURN Surgical - Exam Vital Signs Pulse Resp BP Pulse Ox 87 16 167/88 97 09/21/20 12:39 09/21/20 12:39 09/21/20 12:39 09/21/20 12:39 - General well developed, well nourished, no distress - Eyes PERRL - ENT normal pinna - Neck no masses - Respiratory normal expansion - Cardiovascular Rhythm: regular - Abdomen Abdomen: soft, non tender Results - Labs Abnormal Lab Results - Last 24 Hours (Table) 09/21/20 Range/Units 12:58 POC Glucose (mg/dL) 100 H (75-99) mg/dL Assessment and Plan Assessment: GERD, dysphagia. Hiatal hernia We'll perform EGD
--- NOTE | 2020-09-21 14:43 | P.OP ---
Date of Procedure: 09/21/20 Preoperative Diagnosis: GERD Dysphagia Postoperative Diagnosis: Antral gastritis Large paraesophageal hernia Procedure(s) Performed: EGD Anesthesia: MAC Surgeon: Bonifacio Squires Pathology: other (antrum) Description of Procedure: The patient's placed on the endoscopy table in the lateral position. She received IV sedation. The gastroscope placed oropharynx passed in the esophagus and into the stomach. Scope was then placed through the pylorus. The first and second portion of the duodenum appeared normal. The scope was then brought back the antrum and this appeared mildly inflamed. Biopsies performed. The scope was then retroflexed and the remainder of the stomach appeared normal. The patient had a large paraesophageal hiatal hernia. The GE junction was at 34 cm. The distal esophagus appeared minimally inflamed. The proximal esophagus appeared normal. The scope was withdrawn from patient.
== END 2020-09-21 15:05 | disposition home or self-care (01) ==
LOC: ORWHC2ENDO 12:20
PROVIDERS: ATTEND Surgery
DX: K29.50 Unspecified chronic gastritis without bleeding (principal); K44.9 Diaphragmatic hernia without obstruction or gangrene; K21.9 Gastro-esophageal reflux disease without esophagitis; H40.9 Unspecified glaucoma; M79.7 Fibromyalgia; H91.90 Unspecified hearing loss, unspecified ear; E78.5 Hyperlipidemia, unspecified; I10 Essential (primary) hypertension; M19.90 Unspecified osteoarthritis, unspecified site; G25.81 Restless legs syndrome; H81.09 Meniere's disease, unspecified ear; K57.90 Diverticulosis of intestine, part unspecified, without perforation or abscess without bleeding; E11.42 Type 2 diabetes mellitus with diabetic polyneuropathy; M51.9 Unspecified thoracic, thoracolumbar and lumbosacral intervertebral disc disorder; M10.9 Gout, unspecified; I47.1 Supraventricular tachycardia; I20.9 Angina pectoris, unspecified; Z85.828 Personal history of other malignant neoplasm of skin; Z87.01 Personal history of pneumonia (recurrent); Z87.19 Personal history of other diseases of the digestive system; Z86.2 Personal history of diseases of the blood and blood-forming organs and certain disorders involving the immune mechanism; Z87.440 Personal history of urinary (tract) infections; Z90.49 Acquired absence of other specified parts of digestive tract; Z98.890 Other specified postprocedural states; Z90.710 Acquired absence of both cervix and uterus; Z96.653 Presence of artificial knee joint, bilateral; Z90.89 Acquired absence of other organs; Z98.51 Tubal ligation status; Z98.41 Cataract extraction status, right eye; Z98.42 Cataract extraction status, left eye; Z96.1 Presence of intraocular lens; Z96.22 Myringotomy tube(s) status; Z91.89 Other specified personal risk factors, not elsewhere classified; Z87.898 Personal history of other specified conditions; Z79.899 Other long term (current) drug therapy; Z79.891 Long term (current) use of opiate analgesic; Z79.84 Long term (current) use of oral hypoglycemic drugs; Z88.0 Allergy status to penicillin; Z88.8 Allergy status to other drugs, medicaments and biological substances; Z91.09 Other allergy status, other than to drugs and biological substances; Z88.6 Allergy status to analgesic agent; Z97.2 Presence of dental prosthetic device (complete) (partial); Z80.9 Family history of malignant neoplasm, unspecified; Z80.0 Family history of malignant neoplasm of digestive organs; Z82.3 Family history of stroke; Z82.49 Family history of ischemic heart disease and other diseases of the circulatory system; Z81.8 Family history of other mental and behavioral disorders
CPT/HCPCS: 88305; 43239; J2001; J2704

== ENCOUNTER 2020-10-05 06:03 | Day surgery (SDC) | payer MEDICARE ==
[2020-10-01 13:47] VITALS: BMI 29.4
[~2020-10-05 06:03] MED LIST changes: +ALPRAZolam 0.25 MG TAB PO PRN; +ALPRAZolam 0.5 MG TAB PO PRN; +ASPIRIN 325 MG TAB PO STA; +ATORVASTATIN 80 MG TAB PO STA; +HEPARIN SODIUM,PORCINE 10,000 UNIT in SODIUM CHLORIDE 0.9% 1,000 ML IRRIGATION PRN; +HEPARIN SODIUM,PORCINE 2,500 UNIT in SODIUM CHLORIDE 0.9% 250 ML IRRIGATION PRN; -LACTATED RINGERS 1,000 ML IV SCH; -LIDOCAINE 1% 20 ML VIAL (10MG/ML) FOR IV START INTRADERMA PRN; +NITROGLYCERIN SL TABS 0.4 MG TAB SUBLINGUAL PRN; +SODIUM CHLORIDE 0.9% 1,000 ML in EMPTY BAG 1 BAG IV ONE
[2020-10-05 06:34] LABS: Glucose,Whole Blood 103 mg/dL (75-99)
[2020-10-05 06:47] VITALS: RESP 16; TEMP 97.9
[2020-10-05] MEDS ORDERED: MIDAZOLAM 2 MG/2 ML VIAL IV ONE (08:50)
[2020-10-05] MEDS ORDERED: LIDOCAINE 1% INJ 10MG/ML (20 ML MDV) SQ ONE (08:53)
[2020-10-05] MEDS ORDERED: HEPARIN SODIUM 1,000 UN/ML (10ML VL) IV ONE (08:54)
[2020-10-05] MEDS: VERAPAMIL SYRINGE (5 MG/10 ML) INTRAARTER ONE ×2 (08:55→09:02)
[2020-10-05] MEDS ORDERED: fentaNYL (PF) 50 MCG/ML 2 ML AMP IV ONE (08:56)
[2020-10-05] MEDS ORDERED: IOPAMIDOL-370 125ML BTL INJ ONE (09:03)
[2020-10-05] MEDS ORDERED: SODIUM CHLORIDE 0.9% 1,000 ML IV SCH (09:15)
--- NOTE | 2020-10-05 10:43 | CC ---
CARDIAC CATHETERIZATION REPORT DATE OF SERVICE: October 05, 2020 PERFORMING PHYSICIAN: Justice Her MD. PROCEDURE PERFORMED: 1. Selective right and left coronary angiogram. 2. Left heart catheterization. INDICATION: This is a very pleasant 75-year-old female patient who was experiencing symptoms of chest discomfort and she underwent myocardial perfusion imaging stress test and that came into be abnormal and because of that, a heart catheterization was advised. APPROACH: Right radial artery. COMPLICATION: None. LEVEL OF SEDATION: Moderate with sedation length of 13 minutes. PROCEDURE DESCRIPTION: After obtaining an informed consent, the patient was brought to the cardiac orthodontic lab technician. The right radial artery was cannulated using micropuncture technique, the micropuncture wire passed easily then I placed a 6-Dutch sheath at the right radial artery. I did selective right and left coronary angiogram using JR4 and JL3.5 catheters. Left heart catheterization was performed using the JL4 catheter which crossed the aortic valve. The procedure was completed without any complication. SELECTIVE CORONARY ANGIOGRAM: 1. The right coronary artery is a large caliber vessel and it is a dominant vessel. The RCA is angiographically normal. Distally, it bifurcates into PDA and PLV branches and both appeared to be angiographically normal. 2. The left main is angiographically normal, but it is a short left main. It bifurcates into LCX and LAD. 3. The LCX is a large caliber vessel. It is a nondominant vessel. The left circumflex is angiographically normal. It gives rise into an OM branch which appeared to be normal as well. 4. The LAD is a large caliber vessel. The LAD is angiographically normal. The LAD gives rise into a diagonal branch which seems to be angiographically normal. HEMODYNAMICS: The LVEDP was about 10 to 12 mmHg without significant gradient across the aortic valve. CONCLUSION: 1. Normal coronary angiogram. 2. Normal left ventricular end-diastolic pressure. POSTPROCEDURE MANAGEMENT: 1. Medical treatment. 2. Follow up with the patient. MMODL / IJN: [id number] /
--- NOTE | 2020-10-05 10:46 | LTR ---
October 05, 2020 Re: Karolina Jhaings Dear Dr. Hernandez: Ms. Karolina Augustin underwent today a heart catheterization and that revealed normal coronaries. I want to thank you for allowing me to participate in her care and please do not hesitate to call if any question or concern. Sincerely, MD AMANDA Hernandez / RUDDYN: [id number] /
[2020-10-05 13:39] VITALS: BP 103/56; PULSE 70
== END 2020-10-05 14:00 | disposition home or self-care (01) ==
LOC: CATHCVL 06:03
PROVIDERS: ATTEND Internal Medicine Interventional Cardiology
DX: I20.0 Unstable angina (principal); I10 Essential (primary) hypertension; E11.9 Type 2 diabetes mellitus without complications; E78.5 Hyperlipidemia, unspecified; E66.3 Overweight; Z82.49 Family history of ischemic heart disease and other diseases of the circulatory system; Z79.84 Long term (current) use of oral hypoglycemic drugs; Z79.899 Other long term (current) drug therapy; Z88.0 Allergy status to penicillin; Z68.30 Body mass index [BMI] 30.0-30.9, adult
CPT/HCPCS: 93458; C1769 ×2; C1894; J2250; J2001; J3010; J1644; Q9967

== ENCOUNTER 2020-10-19 07:43 | Day surgery (SDC) | payer MEDICARE ==
[2020-10-14 12:10] VITALS: BMI 29.4
[~2020-10-19 07:43] MED LIST changes: +ACETAMINOPHEN TAB 500 MG TAB PO PRN; -ALPRAZolam 0.25 MG TAB PO PRN; -ALPRAZolam 0.5 MG TAB PO PRN; -ASPIRIN 325 MG TAB PO STA; -ATORVASTATIN 80 MG TAB PO STA; +DEXAMETHASONE SOD PHOSPHATE 4 MG/ML 1 ML VIAL IV ONE; -HEPARIN SODIUM,PORCINE 10,000 UNIT in SODIUM CHLORIDE 0.9% 1,000 ML IRRIGATION PRN; -HEPARIN SODIUM,PORCINE 2,500 UNIT in SODIUM CHLORIDE 0.9% 250 ML IRRIGATION PRN; +HEPARIN SODIUM,PORCINE 5,000 UNIT/ML 1 ML VIAL SQ PRN; +HYDROmorphone 0.5 MG/0.5 ML SYRINGE IVP PRN; +LACTATED RINGERS 1,000 ML IV SCH; +LIDOCAINE 1% (10MG/ML) FOR IV START INTRADERMA PRN; +MIDAZOLAM 2 MG/2 ML VIAL IV PRN; -NITROGLYCERIN SL TABS 0.4 MG TAB SUBLINGUAL PRN; +ONDANSETRON 4 MG/2 ML VIAL IVP ONE; -SODIUM CHLORIDE 0.9% 1,000 ML in EMPTY BAG 1 BAG IV ONE
[2020-10-19 08:38] LABS: Glucose,Whole Blood 112 mg/dL (75-99)
--- NOTE | 2020-10-19 09:14 | P.GSHP ---
History of Present Illness H&P Date: 10/19/20 Chief Complaint: Dysphagia This a 72-year-old female with a recurrent paraesophageal hernia. Patient presents today for laparoscopic repair. Patient aware the risks of surgery including adhesions, injury to the stomach esophagus liver or spleen. Past Medical History Past Medical History: Cancer, Chest Pain / Angina, Diabetes Mellitus, Eye Disorder, Fibromyalgia, GERD/Reflux, Hearing Disorder / Deafness, Hyperlipidemia, Hypertension, Osteoarthritis (OA), Pneumonia, Supraventricular Tachycardia (SVT) Additional Past Medical History / Comment(s): Intestinal adhesions, RESTLESS LEG, Hiatal HERNIA, MENIERES, DIVERTICULITIS, GLAUCOMA R eye, (NOT CURRENTLY ON ANY MEDICATIONS FOR) NEUROPATHY bilateral legs, hx anemia. Irregular heartbeat. DDD, Difficulty hearing certain tones. gout, skin cancer, admission Aug 2020 for intestinal abscess and UTI per pt. History of Any Multi-Drug Resistant Organisms: None Reported Past Surgical History: Appendectomy, Bladder Surgery, Bowel Resection, Cholecystectomy, Ear Surgery, Heart Catheterization, Hernia Repair, Hysterectomy, Joint Replacement, Orthopedic Surgery, Tonsillectomy, Tubal Ligation Additional Past Surgical History / Comment(s): Direct Microlaryngoscopy and removal left vocal cord mass.RIGHT BREAST BX, Diagnostic laparoscopy with lysis of adhesions. LUBNA KNEE REPLACEMENT, EYE surgery for cataracts bilaterally with lens implants, TUBE IN RIGHT EAR FOR MENIERES, LEFT THUMB SURGERY, hiatal hernia repair, abdominal ventral hernia repair, EGD-esophagus stretched x3, spur re moval left heel Past Anesthesia/Blood Transfusion Reactions: Previous Problems w/ Anesthesia, Motion Sickness, Postoperative Nausea & Vomiting (PONV) Additional Past Anesthesia/Blood Transfusion Reaction / Comment(s): MENIERE'S, STATES "DIFF INTUBATION-JAW LOCKED UP AFTER A PREVIOUS INTUBATION". "scraped vocal cord-evaluated by Dr Smart", difficult IV start Smoking Status: Never smoker - Past Family History Brother(s) Family Medical History: Cancer Mother Family Medical History: Cancer, CVA/TIA, Deep Vein Thrombosis (DVT) Additional Family Medical History / Comment(s): STOMACH CANCER Father Family Medical History: No Reported History Additional Family Medical History / Comment(s): COMMITTED SUICIDE Medications and Allergies Home Medications Medication Instructions Recorded Confirmed Type Evolocumab [Repatha Syringe] 140 mg SQ Q14D 11/17/18 10/19/20 History Fenofibrate [Lofibra] 160 mg PO DAILY 11/17/18 10/14/20 History Gabapentin [Neurontin] 300 mg PO HS 12/01/19 10/14/20 History Isosorbide Mononitrate ER [Imdur] 60 mg PO DAILY 09/05/20 10/14/20 History Metoprolol Succinate [Toprol XL] 25 mg PO DAILY 09/05/20 10/14/20 History metFORMIN HCL [Glucophage] 1,000 mg PO BID 09/05/20 10/14/20 History traZODone HCL [Desyrel] 50 mg PO HS 09/05/20 10/14/20 History Losartan/Hydrochlorothiazide 1 tab PO DAILY 09/18/20 10/14/20 History [Hyzaar 100-25 Tablet] Famotidine 40 mg PO DAILY 10/14/20 10/19/20 History Furosemide [Lasix] 20 mg PO DAILY 10/14/20 10/19/20 History HYDROcodone/APAP 5-325MG [[place] 1 tab PO QAM 10/14/20 10/14/20 History 5-325] HYDROcodone/APAP 5-325MG [[place] 1.5 tab PO HS 10/14/20 10/19/20 History 5-325] Nf-Mirapex Unkn Dose 10/14/20 History Omeprazole 40 mg PO DAILY 10/14/20 10/19/20 History Allergies Allergy/AdvReac Type Severity Reaction Status Date / Time Penicillins Allergy Rash/Hives Verified 10/19/20 08:21 Cbrnunf-Xpx-Mek Reductase Allergy Rash/Hives Verified 10/19/20 08:21 Inhibitor adhesive AdvReac Rash/Hives Verified 10/19/20 08:21 aspirin AdvReac STOMACH Verified 10/19/20 08:21 UPSET/HEARTBURN Surgical - Exam Vital Signs Temp Pulse Resp BP Pulse Ox 98.4 F 100 18 148/69 99 10/19/20 08:19 10/19/20 08:19 10/19/20 08:19 10/19/20 08:19 10/19/20 08:19 - General well developed, well nourished, no distress - Eyes PERRL - ENT normal pinna - Neck no masses - Respiratory normal expansion - Cardiovascular Rhythm: regular - Abdomen Abdomen: soft, non tender Results - Labs Abnormal Lab Results - Last 24 Hours (Table) 10/19/20 Range/Units 08:34 POC Glucose (mg/dL) 112 H (75-99) mg/dL Assessment and Plan Assessment: Dysphagia related to her soft hernia. Patient will undergo laparoscopic repair.
[2020-10-19] MEDS ORDERED: BUPIVACAINE (PF) 0.25% 30 ML VIAL SQ ONE (09:18)
[2020-10-19] MEDS ORDERED: SUCCINYLCHOLINE CHLORIDE 100 MG/5 ML SYR IV ONE (09:49)
[2020-10-19] MEDS ORDERED: PROPOFOL 10 MG/ML 20 ML VIAL IV ONE (09:49)
[2020-10-19] MEDS ORDERED: LIDOCAINE 1% INJ 10MG/ML (20 ML MDV) ONE (09:49)
[2020-10-19] MEDS ORDERED: fentaNYL (PF) 50 MCG/ML 2 ML AMP ONE (09:49)
[2020-10-19] MEDS ORDERED: GLYCOPYRROLATE 0.2 MG/ML 2 ML VIAL ONE (09:49)
[2020-10-19] MEDS ORDERED: MIDAZOLAM 2 MG/2 ML VIAL ONE (09:49)
[2020-10-19] MEDS ORDERED: NEOSTIGMINE 1 MG/ML 10 ML VIAL ONE (09:49)
[2020-10-19] MEDS ORDERED: ROCURONIUM 10 MG/ML (5 ML VIAL) IV ONE (09:49)
--- NOTE | 2020-10-19 10:42 | P.OP ---
Date of Procedure: 10/19/20 Preoperative Diagnosis: Paraesophageal hernia Postoperative Diagnosis: Extensive intra-abdominal adhesions Procedure(s) Performed: Laparoscopic lysis of adhesions Anesthesia: OANH Surgeon: Bonifacio Squires Estimated Blood Loss (ml): 10 Pathology: none sent Condition: stable Disposition: PACU Description of Procedure: The patient's placed on the operative table in the supine position. She received general anesthesia. She was then placed in dorsal 5 position. Her abdomen was prepped and draped usual fashion. The abdomen was prepped and draped usual sterile fashion. A 5 mm skin incision was made in the left. Local area. And then using a 5 mm optical trocar under direct vision the Cavity is entered. The laparoscope placed. Cavity. There extensive adhesions throughout the pleural cavity. Several times made to lyse adhesions however there were too many adhesions present to perform the repair paraesophageal hernia. This point the abdomen was desufflated skin closed interrupted 3-0 Monocryl suture. Dermabond was applied. Patient top she will was sent to [facility] in stable condition.
[2020-10-19 10:44] VITALS: TEMP 97.7
[2020-10-19] MEDS ORDERED: HYDROmorphone 1 MG/ML 1 ML SYRINGE IVP ONE ×2 (10:48→10:53)
[2020-10-19 11:01] LABS: Glucose,Whole Blood 154 mg/dL (75-99)
[2020-10-19 11:09] VITALS: RESP 16
[2020-10-19 11:16] VITALS: BP 149/87; PULSE 92
== END 2020-10-19 12:05 | disposition home or self-care (01) ==
LOC: OR 07:43
PROVIDERS: ATTEND Surgery
DX: K66.0 Peritoneal adhesions (postprocedural) (postinfection) (principal); K44.9 Diaphragmatic hernia without obstruction or gangrene; E13.42 Other specified diabetes mellitus with diabetic polyneuropathy; M79.7 Fibromyalgia; K21.9 Gastro-esophageal reflux disease without esophagitis; H91.90 Unspecified hearing loss, unspecified ear; E78.5 Hyperlipidemia, unspecified; I10 Essential (primary) hypertension; M19.90 Unspecified osteoarthritis, unspecified site; Z87.01 Personal history of pneumonia (recurrent); Z87.898 Personal history of other specified conditions; I47.1 Supraventricular tachycardia; G25.81 Restless legs syndrome; Z87.19 Personal history of other diseases of the digestive system; H40.9 Unspecified glaucoma; M10.9 Gout, unspecified; Z87.440 Personal history of urinary (tract) infections; Z98.51 Tubal ligation status; Z96.653 Presence of artificial knee joint, bilateral; Z98.42 Cataract extraction status, left eye; Z98.41 Cataract extraction status, right eye; Z96.1 Presence of intraocular lens; H81.09 Meniere's disease, unspecified ear; I25.10 Atherosclerotic heart disease of native coronary artery without angina pectoris; Z85.828 Personal history of other malignant neoplasm of skin; Z97.2 Presence of dental prosthetic device (complete) (partial); Z80.9 Family history of malignant neoplasm, unspecified; Z90.89 Acquired absence of other organs; Z90.49 Acquired absence of other specified parts of digestive tract; Z90.710 Acquired absence of both cervix and uterus; Z98.890 Other specified postprocedural states; Z80.0 Family history of malignant neoplasm of digestive organs; Z82.3 Family history of stroke; Z82.49 Family history of ischemic heart disease and other diseases of the circulatory system; Z79.84 Long term (current) use of oral hypoglycemic drugs; Z79.891 Long term (current) use of opiate analgesic; Z79.899 Other long term (current) drug therapy; Z88.0 Allergy status to penicillin; Z88.8 Allergy status to other drugs, medicaments and biological substances; Z91.09 Other allergy status, other than to drugs and biological substances; Z88.6 Allergy status to analgesic agent
CPT/HCPCS: 93005; 49329; J2250; J1644; J1100; J2710; J0690; J2405; J2001; J3010; J1170; J0330; J2704

== ENCOUNTER 2020-11-06 08:40 | Inpatient (IN) | payer MEDICARE ==
[2020-11-03 11:18] VITALS: BMI 28.8
[~2020-11-06 08:40] MED LIST changes: -DEXAMETHASONE SOD PHOSPHATE 4 MG/ML 1 ML VIAL IV ONE; -HYDROmorphone 0.5 MG/0.5 ML SYRINGE IVP PRN; -LACTATED RINGERS 1,000 ML IV SCH; -LIDOCAINE 1% (10MG/ML) FOR IV START INTRADERMA PRN
[2020-11-06 10:07] LABS: Glucose,Whole Blood 97 mg/dL (75-99)
[2020-11-06] MEDS: LACTATED RINGERS 1,000 ML IV SCH (10:16)
[2020-11-06] MEDS ORDERED: DEXAMETHASONE SOD PHOSPHATE 4 MG/ML 1 ML VIAL IVP ONE (10:18)
--- NOTE | 2020-11-06 10:22 | P.GSHP ---
History of Present Illness H&P Date: 11/06/20 Chief Complaint: Paraesophageal hernia This a 75-year-old female who's had a recurrent paraesophageal hernia. Patient has had significant adhesions she is underwent previous diagnostic laparoscopy. Patient unable have procedure performed laparoscopically. She presents today for open repair of paraesophageal hernia. She is aware of risk of injury to the stomach liver or esophagus and bowel. Patient's had trouble with recurrent GERD and dysphagia symptoms Past Medical History Past Medical History: Cancer, Chest Pain / Angina, Diabetes Mellitus, Eye Disorder, Fibromyalgia, GERD/Reflux, Hearing Disorder / Deafness, Hyperlipide carlos, Hypertension, Osteoarthritis (OA), Pneumonia, Supraventricular Tachycardia (SVT) Additional Past Medical History / Comment(s): Intestinal adhesions, RESTLESS LEG, Hiatal HERNIA, MENIERES, DIVERTICULITIS, GLAUCOMA R eye, (NOT CURRENTLY ON ANY MEDICATIONS FOR) NEUROPATHY bilateral legs, hx anemia. Irregular heartbeat. DDD, Difficulty hearing certain tones. gout, skin cancer, admission Aug 2020 for intestinal abscess and UTI per pt. History of Any Multi-Drug Resistant Organisms: None Reported Past Surgical History: Appendectomy, Bladder Surgery, Bowel Resection, Cholecystectomy, Ear Surgery, Heart Catheterization, Hernia Repair, Hysterectomy, Joint Replacement, Orthopedic Surgery, Tonsillectomy, Tubal Ligation Additional Past Surgical History / Comment(s): Direct Microlaryngoscopy and removal left vocal cord mass.RIGHT BREAST BX, Diagnostic laparoscopy with lysis of adhesions. LUBNA KNEE REPLACEMENT, EYE surgery for cataracts bilaterally with lens implants, TUBE IN RIGHT EAR FOR MENIERES, LEFT THUMB SURGERY, hiatal hernia repair, abdominal ventral hernia repair, EGD-esophagus stretched x3, spur removal left heel Past Anesthesia/Blood Transfusion Reactions: Previous Problems w/ Anesthesia, Motion Sickness, Postoperative Nausea & Vomiting (PONV) Additional Past Anesthesia/Blood Transfusion Reaction / Comment(s): MENIERE'S, STATES "DIFF INTUBATION-JAW LOCKED UP AFTER A PREVIOUS INTUBATION". "scraped vocal cord-evaluated by Dr Smart", difficult IV start Smoking Status: Never smoker - Past Family History Brother(s) Family Medical History: Cancer Mother Family Medical History: Cancer, CVA/TIA, Deep Vein Thrombosis (DVT) Additional Family Medical History / Comment(s): STOMACH CANCER Father Family Medical History: No Reported History Additional Family Medical History / Comment(s): COMMITTED SUICIDE Medications and Allergies Home Medications Medication Instructions Recorded Confirmed Type Evolocumab [Repatha Syringe] 140 mg SQ Q14D 11/17/18 11/06/20 History Fenofibrate [Lofibra] 160 mg PO DAILY 11/17/18 11/06/20 History Gabapentin [Neurontin] 300 mg PO HS 12/01/19 11/06/20 History Isosorbide Mononitrate ER [Imdur] 60 mg PO DAILY 09/05/20 11/06/20 History Metoprolol Succinate [Toprol XL] 25 mg PO DAILY 09/05/20 11/06/20 History metFORMIN HCL [Glucophage] 1,000 mg PO BID 09/05/20 11/06/20 History traZODone HCL [Desyrel] 50 mg PO HS 09/05/20 11/06/20 History Losartan/Hydrochlorothiazide 1 tab PO DAILY 09/18/20 11/06/20 History [Hyzaar 100-25 Tablet] Famotidine 40 mg PO DAILY 10/14/20 11/06/20 History Furosemide [Lasix] 20 mg PO DAILY 10/14/20 11/06/20 History HYDROcodone/APAP 5-325MG [[place] 1 tab PO QAM 10/14/20 11/06/20 History 5-325] HYDROcodone/APAP 5-325MG [[place] 1.5 tab PO HS 10/14/20 11/06/20 History 5-325] Omeprazole 40 mg PO DAILY 10/14/20 11/06/20 History Acetaminophen Tab [Tylenol] 650 mg PO Q6H #30 tab 10/19/20 11/06/20 Rx Docusate [Colace] 100 mg PO BID #20 capsule 10/19/20 11/06/20 Rx Allergies Allergy/AdvReac Type Severity Reaction Status Date / Time Penicillins Allergy Rash/Hives Verified 11/06/20 10:14 Jjxhebf-Ims-Ale Reductase Allergy Rash/Hives Verified 11/06/20 10:14 Inhibitor adhesive AdvReac Rash/Hives Verified 11/06/20 10:14 aspirin AdvReac STOMACH Verified 11/06/20 10:14 UPSET/HEARTBURN Surgical - Exam Vital Signs Temp Pulse Resp BP Pulse Ox 97.2 F L 65 18 138/75 99 11/06/20 09:50 11/06/20 09:50 11/06/20 09:50 11/06/20 09:50 11/06/20 09:50 - General well developed, well nourished, no distress - Eyes PERRL - ENT normal pinna - Neck no masses - Respiratory normal expansion - Cardiovascular Rhythm: regular - Abdomen Multiple laparotomy scars Abdomen: soft, non tender Assessment and Plan Assessment: Paraesophageal hernia. We'll perform open repair.
[2020-11-06] MEDS ORDERED: fentaNYL (PF) 50 MCG/ML 2 ML AMP IVP ONE (10:29)
[2020-11-06] MEDS ORDERED: MIDAZOLAM 2 MG/2 ML VIAL IVP ONE (10:29)
[2020-11-06] MEDS ORDERED: diphenhydrAMINE 50 MG/ML 1 ML VIAL IVP PRN (10:59)
[2020-11-06] MEDS ORDERED: NALOXONE 0.4 MG/ML 1 ML VIAL IV PRN ×2 (10:59→13:11)
[2020-11-06] MEDS ORDERED: MORPHINE SULFATE 2 MG/ML SYRINGE IVP PRN (10:59)
[2020-11-06] MEDS ORDERED: ONDANSETRON 4 MG/2 ML VIAL IVP PRN ×2 (10:59→13:11)
--- NOTE | 2020-11-06 11:02 | P.ANPRN ---
Procedure Note - Anesthesia - Epidural/Spinal Epidural Time Out Performed: Yes Date of Procedure: 11/06/20 Procedure Start Time: 10:30 Procedure Stop Time: 10:44 Location of Patient: PreOp Indication: Acute Post-Operative Pain, Requested by Surgeon (sachi) Sedation Type: Sedate with meaningful contact maintained Preparation: Sterile Dressing Number of Attempts: 2 Position: Sitting Catheter Depth at Skin (cm): 11 Catheter: Indwelling Needle Guage: 18 Injectate: Test Dose Lidocaine1.5% w/1:200,000 epi (Neg) Narrative: T10-11 Blood Aspirated: No Pain Paresthesia on Injection Noted: No Events: Uneventful and Well Tolerated
[2020-11-06] MEDS ORDERED: MIDAZOLAM 2 MG/2 ML VIAL ONE (11:15)
[2020-11-06] MEDS ORDERED: ROCURONIUM 10 MG/ML (5 ML VIAL) IV ONE (11:15)
[2020-11-06] MEDS ORDERED: PROPOFOL 10 MG/ML 20 ML VIAL IV ONE (11:15)
[2020-11-06] MEDS ORDERED: GLYCOPYRROLATE 0.2 MG/ML 2 ML VIAL ONE (11:15)
[2020-11-06] MEDS ORDERED: NEOSTIGMINE 1 MG/ML 10 ML VIAL ONE (11:15)
[2020-11-06] MEDS ORDERED: KETAMINE 10 MG/ML 20 ML VIAL ONE (11:15)
[2020-11-06] MEDS ORDERED: ePHEDrine SULFATE/0.9% NACL/PF 50 MG/5 ML SYRINGE IV ONE (11:15)
[2020-11-06] MEDS ORDERED: LIDOCAINE 1% INJ 10MG/ML (20 ML MDV) ONE (11:15)
[2020-11-06] MEDS ORDERED: PHENYLEPHRINE-0.9% NACL SYG 1,000 MCG/10 ML SYRINGE ONE (11:15)
[2020-11-06] MEDS ORDERED: fentaNYL (PF) 50 MCG/ML 2 ML AMP ONE (11:15)
[2020-11-06] MEDS ORDERED: SUCCINYLCHOLINE CHLORIDE 100 MG/5 ML SYR IV ONE (11:15)
[2020-11-06] MEDS ORDERED: LACTATED RINGERS 1,000 ML IV ONE ×2 (12:15→13:11)
[2020-11-06] MEDS ORDERED: HYDROmorphone 0.5 MG/0.5 ML SYRINGE IVP PRN (13:11)
[2020-11-06] MEDS ORDERED: METOCLOPRAMIDE 5 MG/ML 2 ML VIAL IVP PRN (13:11)
[2020-11-06] MEDS ORDERED: ACETAMINOPHEN TAB 325 MG TAB PO PRN (13:11)
[2020-11-06] MEDS: ROPIVACAINE 250 MG, fentaNYL (PF) 1,250 MCG in SODIUM CHLORIDE 0.9% 175 ML EPIDURAL PRN (13:21)
[2020-11-06] MEDS: HYDROmorphone 0.5 MG/0.5 ML SYRINGE IVP PRN ×3 (13:33→14:09)
--- NOTE | 2020-11-06 14:46 | P.OP ---
Date of Procedure: 11/06/20 Preoperative Diagnosis: Recurrent paraesophageal hernia Postoperative Diagnosis: Recurrent paraesophageal hernia Incisional hernia Extensive adhesions Intraperitoneal mesh Procedure(s) Performed: Exploratory laparotomy Lysis of extensive adhesions Repair of paraesophageal hernia Repair of incisional hernia Removal of intraperitoneal. Mesh Anesthesia: OANH Surgeon: Bonifacio Squires Pathology: other (Mesh) Condition: stable Disposition: PACU Description of Procedure: The patient's placed on the operative table in the supine position. She received general anesthesia. She was then placed into the dorsal lithotomy position. Her abdomen was prepped and draped usual sterile fashion. Patient mu ltiple laparotomy scars. The abdomen was entered through midline. The left cautery used to divide the abdominal wall. The patient had extensive adhesions. Cavity. There was intraperitoneal mesh found. The mesh was opened along the midline and then the adhesions to the small bowel and omentum were lysed. Approximately 40 minutes of operative time used to lyse adhesions. The patient is noted to have an incisional hernia on upon entering the abdomen. The crural mesh was then excised and sent to pathology. The [place] wound. The short gastrics along the greater curvature stomach were then dissected free. This was done using the insulin device. The stomach was then reduced into the peritoneal cavity. The patient appeared to have a crural defect the posterior aspect. The hernia appeared to be in the retrogastric area. Using a 2-0 Ethibond suture the hernia was repaired here. There was no bleeding seen. At this point the fascia was closed with looped #1 PDS suture. The incisional hernia was repaired during fascial closure. skin was closed ayse. Patient top she will was sent to recovery room stable condition.
[2020-11-06 16:47] LABS: Glucose,Whole Blood 182 mg/dL (75-99)
[2020-11-06] MEDS: KETOROLAC 15 MG/ML 1 ML VIAL IVP SCH (18:10)
[2020-11-06] MEDS: HEPARIN SODIUM,PORCINE 5,000 UNIT/ML 1 ML VIAL SQ SCH (20:09)
[2020-11-07] MEDS: KETOROLAC 15 MG/ML 1 ML VIAL IVP SCH ×5 (00:12→23:23)
[2020-11-07] MEDS: HEPARIN SODIUM,PORCINE 5,000 UNIT/ML 1 ML VIAL SQ SCH ×3 (03:58→20:31)
[2020-11-07] MEDS: LACTATED RINGERS 1,000 ML IV SCH (07:52)
--- NOTE | 2020-11-07 09:37 | P.PN ---
Progress Note - Text Date: 11/07/2020 Time: 07:28 The patient is status post, open paraesophageal hernia repair, postoperative day number 1 The patient has no complaints of nausea vomiting or headache. The patient does not complain of any lower extremity numbness or weakness. The epidural is running at 8 mL per hour. VAS 0-1-10 The epidural will be maintained and adjusted as needed.
--- NOTE | 2020-11-07 10:28 | P.PN ---
Subjective Progress Note Date: 11/07/20 Principal diagnosis: Hiatal hernia Patient's pain is well-controlled. She is very thirsty. Upper GI results pending from today. Objective - Vital Signs Vital signs: Vital Signs Temp 98.9 F 11/07/20 08:00 Pulse 83 11/07/20 08:00 Resp 19 11/07/20 08:00 BP 99/61 11/07/20 08:00 Pulse Ox 94 L 11/07/20 08:00 Intake & Output 11/06/20 11/07/20 11/07/20 18:59 06:59 18:59 Intake Total 1775 Output Total 450 525 Balance 1325 -525 Weight 73.6 kg Intake: IV 1650 Intake, IV Titration 125 Amount Lactated Ringers 1,000 ml 125 @ 125 mls/hr IV .Q8H ONE Rx#:[id number] Output: Urine 250 525 Estimated Blood Loss 200 Other: Voiding Method Indwelling Catheter Indwelling Catheter - Exam Abdomen: Soft, nondistended, dressing clean and dry - Labs Labs: Abnormal Lab Results - Last 24 Hours (Table) 11/06/20 Range/Units 16:46 POC Glucose (mg/dL) 182 H (75-99) mg/dL Assessment and Plan (1) Hiatal hernia Narrative/Plan: Patient doing fairly well. Check morning labs. Await upper GI results. Start ice chips at the upper GI clear. Keep epidural and Peterson catheter for now. Current Visit: Yes Status: Acute Code(s): K44.9 - DIAPHRAGMATIC HERNIA WITHOUT OBSTRUCTION OR GANGRENE SNOMED Code(s): 04272078
--- NOTE | 2020-11-07 11:25 | FL ---
EXAMINATION TYPE: FL UGI w esophagus DATE OF EXAM: 11/07/2020 COMPARISON: None HISTORY: Post Luis fundoplication TECHNIQUE: A single contrast limited esophagram study is performed. FINDINGS: Fluoroscopy time: 49 seconds Images: 12 Contrast passes through the Luis fundoplication with mild hesitancy. There is some mild narrowing t hrough this region which could be postsurgical in nature. Tertiary contractions are evident. There may be a corkscrew esophagus. No extravasation of contrast is evident. No free air is identified. IMPRESSIONS: 1. While hesitancy passing through the Luis fundoplication. 2. Presbyesophagus. Correlate with pain, corkscrew esophagus may be present
[2020-11-07 11:30] LABS: Basophils # (A) 0.02 X 10*3/uL (0.00-0.10); Basophils % (A) 0.3 %; Eosinophils % (A) 1.5 %; HCT 29.6 % (37.2-46.3); HGB 9.5 g/dL (12.0-15.0); Lymphocytes # (A) 1.21 X 10*3/uL (0.90-5.00); Lymphocytes % (A) 18.4 %; MCH 27.7 pg (27.0-32.0); MCHC 32.1 g/dL (32.0-37.0); MCV 86.3 fL (80.0-97.0); Monocytes # (A) 0.29 X 10*3/uL (0.20-1.00); Monocytes % (A) 4.4 %; Neutrophils # (A) 4.92 X 10*3/uL (1.80-7.70); Neutrophils % (A) 74.9 %; Platelet Count 169 X 10*3/uL (140-440); RBC 3.43 X 10*6/uL (4.10-5.20); RDW 14.5 % (11.5-14.5); WBC 6.57 X 10*3/uL (4.50-10.00)
[2020-11-07 12:33] LABS: African American GFR (CKD) 84.8 (60.0-200.0); Albumin 3.6 g/dL (3.80-4.90); Albumin/Globulin Ratio 2.12 (1.60-3.17); Anion Gap 9.5 mmol/L (4.00-12.00); Calcium 8.5 mg/dL (8.7-10.3); Carbon Dioxide 26.5 mmol/L (21.6-31.8); Globulin 1.7 g/dL (1.6-3.3); Non-African American GFR(CKD) 73.1 (60.0-200.0); Potassium 3.4 mmol/L (3.5-5.5); Total Bilirubin 0.6 mg/dL (0.2-1.2); Total Protein 5.3 g/dL (6.2-8.2)
[2020-11-07] MEDS: METOPROLOL SUCCINATE (ER) 25 MG TAB.ER.24H PO SCH (14:09)
[2020-11-07] MEDS: ISOSORBIDE MONONITRATE ER 60 MG TAB.ER.24H PO SCH (14:09)
[2020-11-07] MEDS: PANTOPRAZOLE 40 MG TABLET PO SCH (14:10)
[2020-11-07] MEDS: ROPIVACAINE 250 MG, fentaNYL (PF) 1,250 MCG in SODIUM CHLORIDE 0.9% 175 ML EPIDURAL PRN (14:47)
[2020-11-07] MEDS ORDERED: SODIUM CHLORIDE 0.9% 500 ML 500 ML IV ONE (17:52)
[2020-11-07] MEDS: SODIUM CHLORIDE 0.9% 1,000 ML IV SCH ×2 (18:09→23:23)
[2020-11-07] MEDS: GABAPENTIN 300 MG CAP PO SCH (20:24)
[2020-11-07] MEDS: traZODone HCL 50 MG TAB PO SCH (20:25)
[2020-11-07 20:50] LABS: Glucose,Whole Blood 100 mg/dL (75-99)
--- NOTE | 2020-11-07 22:10 | P.CONS ---
History of Present Illness - Reason for Consult Consult date: 11/07/20 Medical management Requesting physician: Bonifacio Squires - Chief Complaint Paraesophageal hernia repair - History of Present Illness Consultation: 75-year-old pleasant old Dr. Hernandez.. Chronic stable medical conditions include diabetes, fibromyalgia, GERD, hypertension, hyperlipidemia, prostatitis, restless leg syndrome. Patient was here in August of this year with p eridiverticular abscess and diverticulitis. Patient yesterday underwent lysis of extensive adhesions, repair of paraesophageal hernia repair of incisional hernia removal of intraperitoneal mesh for recurrent paraesophageal hernia Dr. Squires. Today-laying in bed. Nothing by mouth Slight abdominal discomfort. Hasn't had been doing in place. No nausea vomiting. Review of systems: GEN.: Tired EYES: [None] HEENT: [None] NECK: [None] RESPIRATORY: [None] CARDIOVASCULAR: [None] GASTROINTESTINAL: [As above] GENITOURINARY: [None] MUSCULOSKELETAL: [Some joint pains] LYMPHATICS: [None] HEMATOLOGICAL: [None] PSYCHIATRY: [None] NEUROLOGICAL: [None] Past medical history to include: diabetes, fibromyalgia, GERD, hard of hearing, hyperlipidemia, hypertension, prostatitis, restless leg syndrome, paraesophageal hernia, Mnire's, diverticulitis with abscess, peripheral neuropathy DJD doubt skin cancer Social history: Nonsmoker. Alcohol rarely. On examination: VITAL SIGNS: 98.9, 83, 19, 99 with 61, 94% on room air GENERAL APPEARANCE: BMI 28.7, laying in bed, awake HEENT: Normal external appearance of nose and ear. Oral cavity normal EYES: Pupils equal. Conjunctiva normal. NECK: JVD not raised. Mass not palpable. RESPIRATORY: Respiratory effort normal. Lungs clear to auscultation. CARDIOVASCULAR: First and second sounds normal. No edema. ABDOMEN: Soft. Mild tenderness. Midline dressing Liver and spleen not palpable. . No mass palpable. PSYCHIATRY: Alert and oriented x3. Mood and affect normal. NEUROLOGICAL: Cranial nerves grossly intact. Power sensation grossly intact LYMPHATICS: No live for Pap and neck and axilla INVESTIGATIONS, reviewed in the clinical context: WBC 6.5 hemoglobin 9.5 platelets 169 potassium 3.4 creatinine 0.8 AST 134 ALT 105 Assessment and plan: -lysis of extensive adhesions, repair of paraesophageal hernia repair of incisional hernia removal of intraperitoneal mesh for recurrent paraesophageal hernia --Diabetes mellitus type 2. Currently nothing by mouth. Follow Accu-Cheks -Chronic fibromyalgia -GERD, IV Pepcid -Hyperlipidemia -Essential hypertension, currently low. -Primary osteoarthritis -Hiatal hernia -Restless leg syndrome -Colonic diverticulosis-asymptomatic -Peripheral neuropathy with Patient's currently nothing by mouth. Getting IV fluids. Epidural for pain. Keep a close eye and hemodynamics. Thank you Dr. Squires Past Medical History Past Medical History: Cancer, Chest Pain / Angina, Diabetes Mellitus, Eye Disorder, Fibromyalgia, GERD/Reflux, Hearing Disorder / Deafness, Hyperlipidemia, Hypertension, Osteoarthritis (OA), Pneumonia, Supraventricular Tachycardia (SVT) Additional Past Medical History / Comment(s): Intestinal adhesions, RESTLESS LEG, Hiatal HERNIA, MENIERES, DIVERTICULITIS, GLAUCOMA R eye, (NOT CURRENTLY ON ANY MEDICATIONS FOR) NEUROPATHY bilateral legs, hx anemia. Irregular heartbeat. DDD, Difficulty hearing certain tones. gout, skin cancer, admission Aug 2020 for intestinal abscess and UTI per pt. History of Any Multi-Drug Resistant Organisms: None Reported Past Surgical History: Appendectomy, Bladder Surgery, Bowel Resection, Cholecystectomy, Ear Surgery, Heart Catheterization, Hernia Repair, Hysterectomy, Joint Replacement, Orthopedic Surgery, Tonsillectomy, Tubal Ligation Additional Past Surgical History / Comment(s): Direct Microlaryngoscopy and removal left vocal cord mass.RIGHT BREAST BX, Diagnostic laparoscopy with lysis of adhesions. LUBNA KNEE REPLACEMENT, EYE surgery for cataracts bilaterally with lens implants, TUBE IN RIGHT EAR FOR MENIERES, LEFT THUMB SURGERY, hiatal hernia repair, abdominal ventral hernia repair, EGD-esophagus stretched x3, spur removal left heel Past Anesthesia/Blood Transfusion Reactions: Previous Problems w/ Anesthesia, Motion Sickness, Postoperative Nausea & Vomiting (PONV) Additional Past Anesthesia/Blood Transfusion Reaction / Comm: MENIERE'S, STATES "DIFF INTUBATION-JAW LOCKED UP AFTER A PREVIOUS INTUBATION". "scraped vocal cord-evaluated by Dr Smart", difficult IV start Past Psychological History: No Psychological Hx Reported Additional Psychological History / Comment(s): . Smoking Status: Never smoker Past Alcohol Use History: Rare Additional Past Alcohol Use History / Comment(s): Smoked x 5 years off and on less then a ppd, quit 30 years ago. Past Drug Use History: None Reported - Past Family History Brother(s) Family Medical History: Cancer Mother Family Medical History: Cancer, CVA/TIA, Deep Vein Thrombosis (DVT) Additional Family Medical History / Comment(s): STOMACH CANCER Father Family Medical History: No Reported History Additional Family Medical History / Comment(s): COMMITTED SUICIDE Medications and Allergies Home Medications Medication Instructions Recorded Confirmed Type Evolocumab [Repatha Syringe] 140 mg SQ Q14D 11/17/18 11/06/20 History Fenofibrate [Lofibra] 160 mg PO DAILY 11/17/18 11/06/20 History Gabapentin [Neurontin] 300 mg PO HS 12/01/19 11/06/20 History Isosorbide Mononitrate ER [Imdur] 60 mg PO DAILY 09/05/20 11/06/20 History Metoprolol Succinate [Toprol XL] 25 mg PO DAILY 09/05/20 11/06/20 History metFORMIN HCL [Glucophage] 1,000 mg PO BID 09/05/20 11/06/20 History traZODone HCL [Desyrel] 50 mg PO HS 09/05/20 11/06/20 History Losartan/Hydrochlorothiazide 1 tab PO DAILY 09/18/20 11/06/20 History [Hyzaar 100-25 Tablet] Famotidine 40 mg PO DAILY 10/14/20 11/06/20 History Furosemide [Lasix] 20 mg PO DAILY 10/14/20 11/06/20 History HYDROcodone/APAP 5-325MG [[place] 1 tab PO QAM 10/14/20 11/06/20 History 5-325] HYDROcodone/APAP 5-325MG [[place] 1.5 tab PO HS 10/14/20 11/06/20 History 5-325] Omeprazole 40 mg PO DAILY 10/14/20 11/06/20 History Acetaminophen Tab [Tylenol] 650 mg PO Q6H #30 tab 10/19/20 11/06/20 Rx Docusate [Colace] 100 mg PO BID #20 capsule 10/19/20 11/06/20 Rx Allergies Allergy/AdvReac Type Severity Reaction Status Date / Time Penicillins Allergy Rash/Hives Verified 11/06/20 10:14 Ckqfiwu-Srw-Lth Reductase Allergy Rash/Hives Verified 11/06/20 10:14 Inhibitor adhesive AdvReac Rash/Hives Verified 03/19/21 10:14 aspirin AdvReac STOMACH Verified 11/06/20 10:14 UPSET/HEARTBURN Physical Exam Vitals: Vital Signs Temp Pulse Pulse Resp BP BP BP 11/07/20 08:00 98.9 F 83 19 99/61 11/07/20 01:23 99.1 F 78 15 94/54 11/06/20 20:28 97.8 F 71 18 110/67 11/06/20 19:00 17 11/06/20 15:50 71 105/66 11/06/20 15:35 70 101/64 11/06/20 15:20 69 106/66 11/06/20 15:05 70 102/65 11/06/20 15:00 97.8 F 70 18 115/73 11/06/20 14:50 70 102/65 11/06/20 14:45 70 16 120/66 11/06/20 14:35 69 107/63 11/06/20 14:30 69 16 125/66 11/06/20 14:20 72 104/65 11/06/20 14:15 69 16 113/59 11/06/20 14:00 69 16 119/59 11/06/20 13:45 66 14 115/60 11/06/20 13:30 67 14 126/63 11/06/20 13:15 97.2 F L 68 14 138/70 Pulse Ox 11/07/20 08:00 94 L 11/07/20 01:23 97 11/06/20 20:28 97 11/06/20 19:00 11/06/20 15:50 95 11/06/20 15:35 95 11/06/20 15:20 93 L 11/06/20 15:05 94 L 11/06/20 15:00 98 11/06/20 14:50 93 L 11/06/20 14:45 100 11/06/20 14:35 93 L 11/06/20 14:30 100 11/06/20 14:20 94 L 11/06/20 14:15 100 11/06/20 14:00 100 11/06/20 13:45 100 11/06/20 13:30 100 11/06/20 13:15 100 Intake and Output 11/06/20 11/07/20 11/07/20 22:59 06:59 14:59 Intake Total 125 Output Total 375 150 Balance -250 -150 Intake: Intake, IV Titration 125 Amount Lactated Ringers 1,000 ml 125 @ 125 mls/hr IV .Q8H ONE Rx#:[id number] Output: Urine 375 150 Other: Voiding Method Indwelling Catheter Indwelling Catheter Weight 73.6 kg Results CBC & Chem 7: 11/07/20 06:38 11/07/20 06:38 Labs: Abnormal Lab Results - Last 24 Hours (Table) 11/06/20 11/07/20 Range/Units 16:46 06:38 RBC 3.43 L (4.10-5.20) X 10*6/uL Hgb 9.5 L (12.0-15.0) g/dL Hct 29.6 L (37.2-46.3) % POC Glucose (mg/dL) 182 H (75-99) mg/dL
[2020-11-08] MEDS: HEPARIN SODIUM,PORCINE 5,000 UNIT/ML 1 ML VIAL SQ SCH ×3 (05:20→20:03)
[2020-11-08] MEDS: LACTATED RINGERS 1,000 ML IV SCH ×3 (05:50→22:30)
[2020-11-08] MEDS: KETOROLAC 15 MG/ML 1 ML VIAL IVP SCH ×2 (05:51→11:40)
[2020-11-08 07:12] LABS: Glucose,Whole Blood 105 mg/dL (75-99)
[2020-11-08] MEDS: PANTOPRAZOLE 40 MG TABLET PO SCH (07:57)
[2020-11-08] MEDS: ISOSORBIDE MONONITRATE ER 60 MG TAB.ER.24H PO SCH (07:57)
[2020-11-08] MEDS: SODIUM CHLORIDE 0.9% 1,000 ML IV SCH (07:58)
[2020-11-08] MEDS: METOPROLOL SUCCINATE (ER) 25 MG TAB.ER.24H PO SCH (07:58)
[2020-11-08 08:21] LABS: Basophils % (A) 0 %; Eosinophils # (A) 0.2 k/uL (0-0.7); Eosinophils % (A) 3 %; Lymphocytes # (A) 0.9 k/uL (1.0-4.8); Lymphocytes % (A) 13 %; MCH 28.8 pg (25.0-35.0); MCHC 34.3 g/dL (31.0-37.0); MCV 83.9 fL (80.0-100.0); Monocytes # (A) 0.2 k/uL (0-1.0); Monocytes % (A) 4 %; Neutrophils # (A) 5.5 k/uL (1.3-7.7); Neutrophils % (A) 80 %; Platelet Count 143 k/uL (150-450); RBC 3.21 m/uL (3.80-5.40); RDW 14.5 % (11.5-15.5); WBC 6.8 k/uL (3.8-10.6)
[2020-11-08 08:24] LABS: HGB 9.2 gm/dL (11.4-16.0)
--- NOTE | 2020-11-08 08:31 | P.PN ---
Progress Note - Text Date: 11/08/2020 Time: 07:58 The patient is status post, paraesophageal hernia repair postoperative day number 2 The patient has no complaints of nausea vomiting or headache. The patient does not complain of any lower extremity numbness or weakness. The epidural is running at 10 mL per hour. VAS 2-3-10 with movement. The epidural will be maintained and adjusted as needed.
[2020-11-08 08:40] LABS: African American GFR (CKD) 77 (>60 ml/min/1.73 sqM); Anion Gap 8 mmol/L; Blood Urea Nitrogen 22 mg/dL (7-17); Calcium 7.9 mg/dL (8.4-10.2); Carbon Dioxide 24 mmol/L (22-30); Chloride 108 mmol/L (98-107); Glucose 99 mg/dL (74-99); Magnesium 1.2 mg/dL (1.6-2.3); Non-African American GFR(CKD) 66 (>60 ml/min/1.73 sqM); Potassium 3.2 mmol/L (3.5-5.1); Sodium 140 mmol/L (137-145)
[2020-11-08] MEDS ORDERED: Potassium Replacement Protocol 1 EACH MISC MISCELLANE PRN (09:10)
[2020-11-08] MEDS ORDERED: Magnesium Replacement Protocol 1 EACH MISC MISCELLANE PRN (09:13)
[2020-11-08] MEDS: POTASSIUM CHLORIDE 10 MEQ in WATER FOR INJECTION 1 100ML.BAG IVPB SCH ×4 (10:24→15:16)
[2020-11-08] MEDS: MAGNESIUM SULFATE-D5W PMX 1 GM in DEXTROSE/WATER 1 100ML.BAG IVPB SCH ×3 (10:24→13:19)
--- NOTE | 2020-11-08 10:36 | P.PN ---
Subjective Progress Note Date: 11/08/20 Principal diagnosis: Hiatal hernia Patient says her pain increased this morning when she was moving about in the room. They increased her epidural. Her pain is better controlled currently. Peterson catheter remains in place. Tolerating ice chips. No nausea or vomiting. White blood cell count 6.8, hemoglobin 9.2, T-max 99.5. Objective - Vital Signs Vital signs: Vital Signs Temp 98.0 F 11/08/20 08:00 Pulse 102 H 11/08/20 08:00 Resp 19 11/08/20 08:00 BP 127/76 11/08/20 08:00 Pulse Ox 92 L 11/08/20 08:00 Intake & Output 11/07/20 11/08/20 11/08/20 18:59 06:59 18:59 Intake Total 578.35 165.167 Output Total 350 225 Balance 228.35 -225 165.167 Intake: Intake, IV Titration 38.35 165.167 Amount Ropivacaine 250 mg 38.35 165.167 fentaNYL (PF) 1,250 mcg In Sodium Chloride 0.9% 175 ml @ Per Protocol EPIDURAL .Q0M PRN Rx#: [id number] Oral 540 Output: Urine 350 225 Other: Voiding Method Indwelling Catheter Indwelling Catheter - Exam Abdomen: Soft, nondistended, dressing clean and dry, mild tenderness - Labs CBC & Chem 7: 11/08/20 08:05 11/08/20 08:05 Labs: Abnormal Lab Results - Last 24 Hours (Table) 11/07/20 11/07/20 11/07/20 Range/Units 06:38 06:38 20:48 RBC 3.43 L (4.10-5.20) X 10*6/uL Hgb 9.5 L (12.0-15.0) g/dL Hct 29.6 L (37.2-46.3) % Plt Count (150-450) k/uL Lymphocytes # (1.0-4.8) k/uL Potassium 3.4 L (3.5-5.5) mmol/L Chloride (98-107) mmol/L BUN (7-17) mg/dL BUN/Creatinine Ratio 30.00 H (12.00-20.00) Ratio Glucose 116 H (70-110) mg/dL POC Glucose (mg/dL) 100 H (75-99) mg/dL Calcium 8.5 L (8.7-10.3) mg/dL Magnesium (1.6-2.3) mg/dL AST 134 H (13-35) U/L ALT 105 H (8-44) U/L Alkaline Phosphatase 37 L (41-126) U/L Total Protein 5.3 L (6.2-8.2) g/dL Albumin 3.60 L (3.80-4.90) g/dL 11/08/20 11/08/20 11/08/20 Range/Units 07:07 08:05 08:05 RBC 3.21 L (4.10-5.20) X 10*6/uL Hgb 9.2 L D (12.0-15.0) g/dL Hct 27.0 L (37.2-46.3) % Plt Count 143 L (150-450) k/uL Lymphocytes # 0.9 L (1.0-4.8) k/uL Potassium 3.2 L (3.5-5.5) mmol/L Chloride 108 H (98-107) mmol/L BUN 22 H (7-17) mg/dL BUN/Creatinine Ratio (12.00-20.00) Ratio Glucose (70-110) mg/dL POC Glucose (mg/dL) 105 H (75-99) mg/dL Calcium 7.9 L (8.7-10.3) mg/dL Magnesium 1.2 L (1.6-2.3) mg/dL AST (13-35) U/L ALT (8-44) U/L Alkaline Phosphatase (41-126) U/L Total Protein (6.2-8.2) g/dL Albumin (3.80-4.90) g/dL Assessment and Plan (1) Hiatal hernia Narrative/Plan: Continue nothing by mouth except for ice chips. Repeat labs tomorrow. Increase activity as tolerated. Plan removal of epidural catheter and Peterson tomorrow. Current Visit: Yes Status: Acute Code(s): K44.9 - DIAPHRAGMATIC HERNIA WITHOUT OBSTRUCTION OR GANGRENE SNOMED Code(s): 39223091
[2020-11-08 11:19] LABS: Glucose,Whole Blood 111 mg/dL (75-99)
[2020-11-08] MEDS: ROPIVACAINE 250 MG, fentaNYL (PF) 1,250 MCG in SODIUM CHLORIDE 0.9% 175 ML EPIDURAL PRN (13:51)
[2020-11-08 16:09] LABS: Glucose,Whole Blood 85 mg/dL (75-99)
[2020-11-08] MEDS: ACETAMINOPHEN IV (For NPO) 1,000 MG in EMPTY BAG 1 BAG IVPB SCH (20:03)
[2020-11-08 20:23] LABS: Glucose,Whole Blood 77 mg/dL (75-99)
--- NOTE | 2020-11-08 21:05 | P.PN ---
Progress Note - Text Progress Note Date: 11/08/20 - Chief Complaint Paraesophageal hernia repair - History of Present Illness Consultation: 75-year-old pleasant old Dr. Hernandez.. Chronic stable medical conditions include diabetes, fibromyalgia, GERD, hypertension, hyperlipidemia, prostatitis, restless leg syndrome. Patient was here in August of this year with peridiverticular abscess and diverticulitis. November 06: underwent lysis of extensive adhesions, repair of paraesophageal hernia repair of incisional hernia removal of intraperitoneal mesh for recurrent paraesophageal hernia Dr. Squires. Today-remains a nice chips. Epidural in place. Pain control. No nausea vomiting. No flatus or bowel movement. Review of systems: Was done for constitutional, cardiovascular, GI, pulmonary. relevant finding as above Active Medications Acetaminophen (Acetaminophen Tab 325 Mg Tab) 650 mg PO Q6HR PRN PRN Reason: Mild Pain or Fever >= 100.5 Hydrocodone Bitart/Acetaminophen (Hydrocodone/Apap 5-325mg 1 Each Tab) 2 each PO Q6HR PRN PRN Reason: Moderate to Severe Pain Diphenhydramine HCl (Diphenhydramine 50 Mg/Ml 1 Ml Vial) 12.5 mg IVP Q6HR PRN PRN Reason: Itching Gabapentin (Gabapentin 300 Mg Cap) 300 mg PO HS VENKAT Last Admin: 11/07/20 20:24 Dose: Not Given Documented by: Heparin Sodium (Porcine) (Heparin Sodium,Porcine 5,000 Unit/Ml 1 Ml Vial) 5,000 unit SQ Q8H VENKAT Last Admin: 11/08/20 20:03 Dose: 5,000 unit Documented by: Hydromorphone HCl (Hydromorphone 0.5 Mg/0.5 Ml Syringe) 0.5 mg IVP Q3HR PRN PRN Reason: Moderate to Severe Pain Lactated Ringer's (Lactated Ringers) 1,000 mls @ 20 mls/hr IV .Q24H [facility]ENKAT Last Admin: 11/08/20 05:50 Dose: Not Given Documented by: Ropivacaine 250 mg/ Fentanyl Citrate 1,250 mcg/ Sodium Chloride 250 mls @ 0 mls/hr EPIDURAL .Q0M PRN; Protocol PRN Reason: Pain Control Last Admin: 11/08/20 13:51 Dose: 12 mls/hr Documented by: Lactated Ringer's (Lactated Ringers) 1,000 mls @ 125 mls/hr IV .Q8H [facility] Last Admin: 11/08/20 13:53 Dose: 125 mls/hr Documented by: Acetaminophen 1,000 mg/ IV (Solution) 100 mls @ 400 mls/hr IVPB Q6H [facility] Stop: 11/09/20 13:14 Last Admin: 11/08/20 20:03 Dose: 400 mls/hr Documented by: Isosorbide Mononitrate (Isosorbide Mononitrate Er 60 Mg Tab.Er.24h) 60 mg PO DAILY [facility] Last Admin: 11/08/20 07:57 Dose: Not Given Documented by: Metoclopramide HCl (Metoclopramide 5 Mg/Ml 2 Ml Vial) 10 mg IVP Q6H PRN PRN Reason: Nausea And Vomiting Metoprolol Succinate (Metoprolol Succinate (Er) 25 Mg Tab.Er.24h) 25 mg PO DAILY [facility] Last Admin: 11/08/20 07:58 Dose: Not Given Documented by: Miscellaneous Information (Potassium Replacement Protocol 1 Each Misc) 1 each MISCELLANE DAILY PRN; Protocol PRN Reason: Per Protocol Miscellaneous Information (Magnesium Replacement Protocol 1 Each Misc) 1 each MISCELLANE DAILY PRN; Protocol PRN Reason: Per Protocol Morphine Sulfate (Morphine Sulfate 2 Mg/Ml Syringe) 2 mg IVP Q2H PRN PRN Reason: Pain/Discomfort Naloxone HCl (Naloxone 0.4 Mg/Ml 1 Ml Vial) 0.2 mg IV Q2M PRN PRN Reason: Opioid Reversal Naloxone HCl (Naloxone 0.4 Mg/Ml 1 Ml Vial) 0.2 mg IV Q2M PRN PRN Reason: Opioid Reversal Ondansetron HCl (Ondansetron 4 Mg/2 Ml Vial) 4 mg IVP Q8HR PRN PRN Reason: Nausea And Vomiting Last Admin: 11/07/20 09:48 Dose: 4 mg Documented by: Ondansetron HCl (Ondansetron 4 Mg/2 Ml Vial) 4 mg IVP Q6HR PRN PRN Reason: Nausea And Vomiting Pantoprazole Sodium (Pantoprazole 40 Mg Tablet) 40 mg PO DAILY@0730 [facility] Last Admin: 11/08/20 07:57 Dose: Not Given Documented by: Trazodone HCl (Trazodone Hcl 50 Mg Tab) 50 mg PO HS [facility] Last Admin: 11/07/20 20:25 Dose: Not Given Documented by: Past medical history to include: diabetes, fibromyalgia, GERD, hard of hearing, hyperlipidemia, hypertension, prostatitis, restless leg syndrome, paraesophageal hernia, Mnire's, diverticulitis with abscess, peripheral neuropathy DJD doubt skin cancer Social history: Nonsmoker. Alcohol rarely. On examination: VITAL SIGNS: 98.3, 91, 16, 117/69, 95% room air GENERAL APPEARANCE: Reclining in bed, awake, epidural in place HEENT: Normal external appearance of nose and ear. Oral cavity normal EYES: Pupils equal. Conjunctiva normal. NECK: JVD not raised. Mass not palpable. RESPIRATORY: Respiratory effort normal. Lungs clear to auscultation. CARDIOVASCULAR: First and second sounds normal. No edema. ABDOMEN: Soft. Mild tenderness. Midline dressing Liver and spleen not palpable. . No mass palpable. PSYCHIATRY: Alert and oriented x3. Mood and affect normal. INVESTIGATIONS, reviewed in the clinical context: November 08: Obesity 6.18 globin 9.2 potassium 3.2 creatinine 0.87 WBC 6.5 hemoglobin 9.5 platelets 169 potassium 3.4 creatinine 0.8 AST 134 ALT 105 Assessment and plan: -lysis of extensive adhesions, repair of paraesophageal hernia repair of incisional hernia removal of intraperitoneal mesh for recurrent paraesophageal hernia epidural in place. --Diabetes mellitus type 2. Currently nothing by mouth. Follow Accu-Cheks -Chronic fibromyalgia -GERD, IV Pepcid -Hyperlipidemia -Essential hypertension, currently low. -Primary osteoarthritis -Hiatal hernia -Restless leg syndrome -Colonic diverticulosis-asymptomatic -Peripheral neuropathy -Hypokalemia. We'll change fluids to LR. -Acute postprocedure blood loss anemia. As expected from surgery Discussed with patient. Change IV fluids to LR. Repeat labs in the morning. Thank you Dr. Squires
[2020-11-08 21:46] LABS: Glucose,Whole Blood 96 mg/dL (75-99)
[2020-11-08] MEDS: GABAPENTIN 300 MG CAP PO SCH (22:29)
[2020-11-08] MEDS: traZODone HCL 50 MG TAB PO SCH (22:29)
[2020-11-09] MEDS: HEPARIN SODIUM,PORCINE 5,000 UNIT/ML 1 ML VIAL SQ SCH ×3 (04:50→21:49)
[2020-11-09] MEDS: ACETAMINOPHEN IV (For NPO) 1,000 MG in EMPTY BAG 1 BAG IVPB SCH ×3 (04:50→17:00)
[2020-11-09] MEDS: LACTATED RINGERS 1,000 ML IV SCH ×3 (05:32→21:49)
[2020-11-09 06:57] LABS: Glucose,Whole Blood 114 mg/dL (75-99)
--- NOTE | 2020-11-09 06:57 | P.PN ---
Progress Note - Text Date: 11/09/2020 Time 06:47 The patient is status post, paraesophageal hernia repair, postoperative day number 3 The patient has no complaints of nausea vomiting or headache. The patient does not complain of any lower extremity numbness or weakness. VAS 2-10. The epidural will be discontinued this morning at approximately 9 AM. Pain meds will be provided to the patient per the service.
[2020-11-09 07:03] LABS: African American GFR (CKD) >90 (>60 ml/min/1.73 sqM); Anion Gap 13 mmol/L; Blood Urea Nitrogen 13 mg/dL (7-17); Calcium 8.1 mg/dL (8.4-10.2); Carbon Dioxide 17 mmol/L (22-30); Chloride 108 mmol/L (98-107); Glucose 108 mg/dL (74-99); Magnesium 1.6 mg/dL (1.6-2.3); Non-African American GFR(CKD) 88 (>60 ml/min/1.73 sqM); Potassium 3.8 mmol/L (3.5-5.1); Sodium 138 mmol/L (137-145)
[2020-11-09 07:05] LABS: Basophils % (A) 0 %; Eosinophils # (A) 0.1 k/uL (0-0.7); Eosinophils % (A) 2 %; HCT 25.2 % (34.0-46.0); HGB 8.8 gm/dL (11.4-16.0); Lymphocytes # (A) 0.7 k/uL (1.0-4.8); Lymphocytes % (A) 11 %; MCH 29.3 pg (25.0-35.0); MCHC 34.8 g/dL (31.0-37.0); MCV 84.4 fL (80.0-100.0); Mean Platelet Volume 8.5; Monocytes # (A) 0.3 k/uL (0-1.0); Monocytes % (A) 5 %; Neutrophils # (A) 5.1 k/uL (1.3-7.7); Neutrophils % (A) 81 %; Platelet Count 144 k/uL (150-450); RBC 2.99 m/uL (3.80-5.40); RDW 14.5 % (11.5-15.5); WBC 6.3 k/uL (3.8-10.6)
[2020-11-09] MEDS: ISOSORBIDE MONONITRATE ER 60 MG TAB.ER.24H PO SCH (07:23)
[2020-11-09] MEDS: PANTOPRAZOLE 40 MG TABLET PO SCH (07:23)
[2020-11-09] MEDS: METOPROLOL SUCCINATE (ER) 25 MG TAB.ER.24H PO SCH (07:24)
[2020-11-09] MEDS ORDERED: MAGNESIUM SULFATE-D5W PMX 1 GM in DEXTROSE/WATER 1 100ML.BAG IVPB ONE (08:00)
--- NOTE | 2020-11-09 11:13 | P.PN ---
Subjective Progress Note Date: 11/09/20 CHIEF COMPLAINT: Recurrent paraesophageal hernia HISTORY OF PRESENT ILLNESS: Patient is status post exploratory laparotomy, lysis of extensive adhesions, repair of paraesophageal hernia, repair of incisional hernia and removal of intraperitoneal mesh. Patient is scheduled for her epidural and Peterson catheter to be removed today. She reports that her pain is controlled. She is passing gas. No bowel movement. Denies any nausea or vomiting. She is nothing by mouth except for ice chips. She did have a low- grade temp of 100 yesterday. WBC 6.3 hemoglobin 8.8 magnesium is 1.6 PHYSICAL EXAM: VITAL SIGNS: Reviewed. GENERAL: Well-developed in no acute distress. HEENT: No sclera icterus. Extraocular movements grossly intact. Moist buccal mucosa. Head is atraumatic, normocephalic. ABDOMEN: Soft. Nondistended. Incision site clean dry and intact NEUROLOGIC: Alert and oriented. Cranial nerves II through XII grossly intact. ASSESSMENT: 1. Recurrent paraesophageal hernia, incisional hernia, extensive adhesions, intraperitoneal mesh status post exploratory laparotomy with lysis of extensive adhesions, repair of paraesophageal hernia, repair of incisional hernia and removal of intraperitoneal mesh. Postoperative day #3 PLAN: -Epidural and Peterson catheter to be discontinued today -Start patient on [place] clears diet -Continue pain medication as needed -Replace magnesium -Encourage patient to ambulate -Encourage patient to use incentive spirometer -GI prophylaxis Protonix and DVT prophylaxis subcu heparin Physician Sanitation Superintendent note has been reviewed by physician. Signing provider agrees with the documented findings, assessment, and plan of care. Objective - Vital Signs Vital signs: Vital Signs Temp 98.5 F 11/09/20 07:44 Pulse 91 11/09/20 07:44 Resp 16 11/09/20 07:44 BP 137/76 11/09/20 07:44 Pulse Ox 94 L 11/09/20 07:44 Intake & Output 11/08/20 11/09/20 11/09/20 18:59 06:59 18:59 Intake Total 204.450 Output Total 450 400 Balance 204.450 -450 -400 Intake: Intake, IV Titration 204.450 Amount Ropivacaine 250 mg 204.450 fentaNYL (PF) 1,250 mcg In Sodium Chloride 0.9% 175 ml @ Per Protocol EPIDURAL .Q0M PRN Rx#: [id number] Output: Urine 450 400 Other: Voiding Method Indwelling Catheter Indwelling Catheter # Voids 250 - Labs CBC & Chem 7: 11/09/20 05:45 11/09/20 05:45 Labs: Abnormal Lab Results - Last 24 Hours (Table) 11/08/20 11/09/20 11/09/20 Range/Units 11:18 05:45 05:45 RBC 2.99 L (3.80-5.40) m/uL Hgb 8.8 L (11.4-16.0) gm/dL Hct 25.2 L (34.0-46.0) % Plt Count 144 L (150-450) k/uL Lymphocytes # 0.7 L (1.0-4.8) k/uL Chloride 108 H (98-107) mmol/L Carbon Dioxide 17 L (22-30) mmol/L Glucose 108 H (74-99) mg/dL POC Glucose (mg/dL) 111 H (75-99) mg/dL Calcium 8.1 L (8.4-10.2) mg/dL 11/09/20 Range/Units 06:50 RBC (3.80-5.40) m/uL Hgb (11.4-16.0) gm/dL Hct (34.0-46.0) % Plt Count (150-450) k/uL Lymphocytes # (1.0-4.8) k/uL Chloride (98-107) mmol/L Carbon Dioxide (22-30) mmol/L Glucose (74-99) mg/dL POC Glucose (mg/dL) 114 H (75-99) mg/dL Calcium (8.4-10.2) mg/dL
[2020-11-09 12:07] LABS: Glucose,Whole Blood 120 mg/dL (75-99)
[2020-11-09] MEDS: HYDROcodone/APAP 5-325MG 1 EACH TAB PO PRN ×2 (14:41→21:49)
[2020-11-09 16:39] LABS: Glucose,Whole Blood 143 mg/dL (75-99)
[2020-11-09 20:24] LABS: Glucose,Whole Blood 176 mg/dL (75-99)
[2020-11-09] MEDS: GABAPENTIN 300 MG CAP PO SCH (21:49)
[2020-11-09] MEDS: traZODone HCL 50 MG TAB PO SCH (21:49)
--- NOTE | 2020-11-09 22:17 | P.PN ---
Progress Note - Text Progress Note Date: 11/09/20 - Chief Complaint Paraesophageal hernia repair - History of Present Illness Consultation: 75-year-old pleasant old Dr. Hernandez.. Chronic stable medical conditions include diabetes, fibromyalgia, GERD, hypertension, hyperlipidemia, prostatitis, restless leg syndrome. Patient was here in August of this year with peridiverticular abscess and diverticulitis. November 06: underwent lysis of extensive adhesions, repair of paraesophageal hernia repair of incisional hernia removal of intraperitoneal mesh for recurrent paraesophageal hernia Dr. Squires. Today-epidural removed. Did pass some flatus. Diet advanced to liquids. No abdominal pain or nausea. Review of systems: Was done for constitutional, cardiovascular, GI, pulmonary. relevant finding as above Active Medications Acetaminophen (Acetaminophen Tab 325 Mg Tab) 650 mg PO Q6HR PRN PRN Reason: Mild Pain or Fever >= 100.5 Hydrocodone Bitart/Acetaminophen (Hydrocodone/Apap 5-325mg 1 Each Tab) 2 each PO Q6HR PRN PRN Reason: Moderate to Severe Pain Last Admin: 11/09/20 21:49 Dose: 2 each Documented by: Diphenhydramine HCl (Diphenhydramine 50 Mg/Ml 1 Ml Vial) 12.5 mg IVP Q6HR PRN PRN Reason: Itching Gabapentin (Gabapentin 300 Mg Cap) 300 mg PO HS [facility] Last Admin: 11/09/20 21:49 Dose: 300 mg Documented by: Heparin Sodium (Porcine) (Heparin Sodium,Porcine 5,000 Unit/Ml 1 Ml Vial) 5,000 unit SQ Q8H [facility] Last Admin: 11/09/20 21:49 Dose: 5,000 unit Documented by: Hydromorphone HCl (Hydromorphone 0.5 Mg/0.5 Ml Syringe) 0.5 mg IVP Q3HR PRN PRN Reason: Moderate to Severe Pain Last Admin: 11/09/20 10:18 Dose: 0.5 mg Documented by: Lactated Ringer's (Lactated Ringers) 1,000 mls @ 125 mls/hr IV .Q8H [facility] Last Admin: 11/09/20 21:49 Dose: 125 mls/hr Documented by: Isosorbide Mononitrate (Isosorbide Mononitrate Er 60 Mg Tab.Er.24h) 60 mg PO DAILY [facility] Last Admin: 11/09/20 07:23 Dose: Not Given Documented by: Metoclopramide HCl (Metoclopramide 5 Mg/Ml 2 Ml Vial) 10 mg IVP Q6H PRN PRN Reason: Nausea And Vomiting Metoprolol Succinate (Metoprolol Succinate (Er) 25 Mg Tab.Er.24h) 25 mg PO DAILY [facility] Last Admin: 11/09/20 07:24 Dose: Not Given Documented by: Miscellaneous Information (Potassium Replacement Protocol 1 Each Misc) 1 each MISCELLANE DAILY PRN; Protocol PRN Reason: Per Protocol Miscellaneous Information (Magnesium Replacement Protocol 1 Each Misc) 1 each MISCELLANE DAILY PRN; Protocol PRN Reason: Per Protocol Morphine Sulfate (Morphine Sulfate 2 Mg/Ml Syringe) 2 mg IVP Q2H PRN PRN Reason: Pain/Discomfort Naloxone HCl (Naloxone 0.4 Mg/Ml 1 Ml Vial) 0.2 mg IV Q2M PRN PRN Reason: Opioid Reversal Naloxone HCl (Naloxone 0.4 Mg/Ml 1 Ml Vial) 0.2 mg IV Q2M PRN PRN Reason: Opioid Reversal Ondansetron HCl (Ondansetron 4 Mg/2 Ml Vial) 4 mg IVP Q8HR PRN PRN Reason: Nausea And Vomiting Last Admin: 11/07/20 09:48 Dose: 4 mg Documented by: Ondansetron HCl (Ondansetron 4 Mg/2 Ml Vial) 4 mg IVP Q6HR PRN PRN Reason: Nausea And Vomiting Last Admin: 11/09/20 12:01 Dose: 4 mg Documented by: Pantoprazole Sodium (Pantoprazole 40 Mg Tablet) 40 mg PO DAILY@0730 [facility] Last Admin: 11/09/20 07:23 Dose: Not Given Documented by: Trazodone HCl (Trazodone Hcl 50 Mg Tab) 50 mg PO [facility] Last Admin: 11/09/20 21:49 Dose: 50 mg Documented by: Past medical history to include: diabetes, fibromyalgia, GERD, hard of hearing, hyperlipidemia, hypertension, prostatitis, restless leg syndrome, paraesophageal hernia, Mnire's, diverticulitis with abscess, peripheral neuropathy DJD doubt skin cancer Social history: Nonsmoker. Alcohol rarely. On examination: VITAL SIGNS: 98.5, 91, 16, 137.76, 94% on room air GENERAL APPEARANCE: Reclining in bed, awake, epidural discontinued HEENT: Normal external appearance of nose and ear. Oral cavity normal EYES: Pupils equal. Conjunctiva normal. NECK: JVD not raised. Mass not palpable. RESPIRATORY: Respiratory effort normal. Lungs clear to auscultation. CARDIOVASCULAR: First and second sounds normal. No edema. ABDOMEN: Soft. Mild tenderness. Midline dressing Liver and spleen not palpable. . No mass palpable. Sluggish bowel sounds PSYCHIATRY: Alert and oriented x3. Mood and affect normal. INVESTIGATIONS, reviewed in the clinical context: November 09: WBC 6.3 hemoglobin 8.8 potassium 3.8 creatinine 0.66 November 08: globin 9.2 potassium 3.2 creatinine 0.87 WBC 6.5 hemoglobin 9.5 platelets 169 potassium 3.4 creatinine 0.8 AST 134 ALT 105 Assessment and plan: -lysis of extensive adhesions, repair of paraesophageal hernia repair of incisional hernia removal of intraperitoneal mesh for recurrent paraesophageal hernia . epidural , now discontinued --Diabetes mellitus type 2. Currently nothing by mouth. Follow Accu-Cheks -Chronic fibromyalgia -GERD, IV Pepcid -Hyperlipidemia -Essential hypertension, currently low. -Primary osteoarthritis -Hiatal hernia -Restless leg syndrome -Colonic diverticulosis-asymptomatic -Peripheral neuropathy -Hypokalemia. We'll change fluids to LR. -Acute postprocedure blood loss anemia. As expected from surgery Discussed with patient. Increase activity. Oral medications when okay with primary Thank you Dr. Squires
[2020-11-10] MEDS: HEPARIN SODIUM,PORCINE 5,000 UNIT/ML 1 ML VIAL SQ SCH ×2 (04:41→13:19)
[2020-11-10] MEDS: HYDROcodone/APAP 5-325MG 1 EACH TAB PO PRN (04:41)
[2020-11-10] MEDS: LACTATED RINGERS 1,000 ML IV SCH (04:42)
[2020-11-10 06:47] LABS: Glucose,Whole Blood 167 mg/dL (75-99)
[2020-11-10] MEDS: METOPROLOL SUCCINATE (ER) 25 MG TAB.ER.24H PO SCH (08:34)
[2020-11-10] MEDS: ISOSORBIDE MONONITRATE ER 60 MG TAB.ER.24H PO SCH (08:34)
[2020-11-10] MEDS: PANTOPRAZOLE 40 MG TABLET PO SCH (08:35)
[2020-11-10 09:15] LABS: Basophils % (A) 0 %; Eosinophils # (A) 0.2 k/uL (0-0.7); Eosinophils % (A) 3 %; HCT 26.7 % (34.0-46.0); HGB 8.9 gm/dL (11.4-16.0); Lymphocytes # (A) 0.9 k/uL (1.0-4.8); Lymphocytes % (A) 14 %; MCHC 33.4 g/dL (31.0-37.0); MCV 83.7 fL (80.0-100.0); Monocytes # (A) 0.3 k/uL (0-1.0); Monocytes % (A) 5 %; Neutrophils # (A) 4.7 k/uL (1.3-7.7); Neutrophils % (A) 77 %; Platelet Count 206 k/uL (150-450); RBC 3.19 m/uL (3.80-5.40); RDW 14.7 % (11.5-15.5)
[2020-11-10 09:54] LABS: African American GFR (CKD) >90 (>60 ml/min/1.73 sqM); Anion Gap 4 mmol/L; Blood Urea Nitrogen 9 mg/dL (7-17); Calcium 8.2 mg/dL (8.4-10.2); Carbon Dioxide 27 mmol/L (22-30); Chloride 105 mmol/L (98-107); Glucose 162 mg/dL (74-99); Non-African American GFR(CKD) >90 (>60 ml/min/1.73 sqM); Potassium 3.7 mmol/L (3.5-5.1); Sodium 136 mmol/L (137-145)
[2020-11-10 10:52] VITALS: PULSE 99
[2020-11-10 11:31] LABS: Glucose,Whole Blood 138 mg/dL (75-99)
[2020-11-10 12:17] VITALS: BP 125/72; RESP 12; TEMP 99
--- NOTE | 2020-11-10 13:24 | P.DS ---
Providers Date of admission: 11/06/20 09:13 Expected date of discharge: 11/10/20 Attending physician: Bonifacio Squires Consults: 11/06/20 13:11 Consult Physician Routine Consulting Provider: Jim Molina Consult Reason/Comments: Medical management Do you want consulting provider notified?: Yes Primary care physician: Damir Hernandez [facility] Course: Discharge diagnosis 1. Recurrent paraesophageal hernia, incisional hernia, extensive adhesions, intraperitoneal mesh status post exploratory laparotomy with lysis of extensive adhesions, repair of paraesophageal hernia, repair of incisional hernia and removal of intraperitoneal mesh. Hospital course This is a 75-year-old female who's had a recurrent paraesophageal hernia. Patient is status post exploratory laparotomy with lysis of extensive adhesions, repair of paraesophageal hernia, repair of incisional hernia and removal of intraperitoneal mesh. Patient tolerated surgery well. Her pain is controlled. She is tolerating diet. She is up and ambulating. She is passing gas and having bowel movements. She is afebrile. She is stable for discharge. Please refer to chart for any further details. Physician Insulation Hoseman note has been reviewed by physician. Signing provider agrees with the documented findings, assessment, and plan of care. Patient Condition at Discharge: Stable Plan - Discharge Summary Discharge Rx Participant: No New Discharge Prescriptions: New Docusate [Colace] 100 mg PO BID #30 capsule HYDROcodone/APAP 5-325MG [[place] 5-325] 1 tab PO Q6HR PRN 3 Days #10 tab PRN Reason: Pain Continue Fenofibrate [Lofibra] 160 mg PO DAILY Evolocumab [Repatha Syringe] 140 mg SQ Q14D Gabapentin [Neurontin] 300 mg PO HS metFORMIN HCL [Glucophage] 1,000 mg PO BID Isosorbide Mononitrate ER [Imdur] 60 mg PO DAILY traZODone HCL [Desyrel] 50 mg PO HS Metoprolol Succinate [Toprol XL] 25 mg PO DAILY Losartan/Hydrochlorothiazide [Hyzaar 100-25 Tablet] 1 tab PO DAILY Omeprazole 40 mg PO DAILY Furosemide [Lasix] 20 mg PO DAILY Famotidine 40 mg PO DAILY Acetaminophen Tab [Tylenol] 650 mg PO Q6H #30 tab Discontinued HYDROcodone/APAP 5-325MG [[place] 5-325] 1.5 tab PO HS HYDROcodone/APAP 5-325MG [[place] 5-325] 1 tab PO QAM Docusate [Colace] 100 mg PO BID #20 capsule Discharge Medication List Evolocumab [Repatha Syringe] 140 mg SQ Q14D 11/17/18 [History] Fenofibrate [Lofibra] 160 mg PO DAILY 11/17/18 [History] Gabapentin [Neurontin] 300 mg PO HS 12/01/19 [History] Isosorbide Mononitrate ER [Imdur] 60 mg PO DAILY 09/05/20 [History] Metoprolol Succinate [Toprol XL] 25 mg PO DAILY 09/05/20 [History] metFORMIN HCL [Glucophage] 1,000 mg PO BID 09/05/20 [History] traZODone HCL [Desyrel] 50 mg PO HS 09/05/20 [History] Losartan/Hydrochlorothiazide [Hyzaar 100-25 Tablet] 1 tab PO DAILY 09/18/20 [History] Famotidine 40 mg PO DAILY 10/14/20 [History] Furosemide [Lasix] 20 mg PO DAILY 10/14/20 [History] Omeprazole 40 mg PO DAILY 10/14/20 [History] Acetaminophen Tab [Tylenol] 650 mg PO Q6H #30 tab 10/19/20 [Rx] Docusate [Colace] 100 mg PO BID #30 capsule 11/10/20 [Rx] HYDROcodone/APAP 5-325MG [[place] 5-325] 1 tab PO Q6HR PRN 3 Days #10 tab 11/10/20 [Rx] Follow up Appointment(s)/Referral(s): [facility], [NON-STAFF] - Damir Hernandez DO [Primary Care Provider] - 1 Week Bonifacio Squires MD [STAFF PHYSICIAN] - 1 Week Activity/Diet/Wound Care/Special Instructions: No driving while taking [place] No lifting over 10 pounds You may shower. No soaking or tub baths for 2 weeks Very light activity until you are reevaluated at your follow up appointment with your surgeon Discharge Disposition: HOME SELF-CARE
--- NOTE | 2020-11-12 14:53 | P.PN ---
Progress Note - Text Progress Note Date: 11/10/20 - Chief Complaint Paraesophageal hernia repair Consultation: 75-year-old pleasant old Dr. Hernandez.. Chronic stable medical conditions include diabetes, fibromyalgia, GERD, hypertension, hyperlipidemia, prostatitis, restless leg syndrome. Patient was here in August of this year with peridiverticular abscess and diverticulitis. November 06: underwent lysis of extensive adhesions, repair of paraesophageal hernia repair of incisional hernia removal of intraperitoneal mesh for recurrent paraesophageal hernia Dr. Squires. Today-tolerating clear liquid diet. No chest pain. Breathing stable. Ambulatory. Questions were answered. Review of systems: Was done for constitutional, cardiovascular, GI, pulmonary. relevant finding as above Current medications reviewed Past medical history to include: diabetes, fibromyalgia, GERD, hard of hearing, hyperlipidemia, hypertension, prostatitis, restless leg syndrome, paraesophageal hernia, Mnire's, diverticulitis with abscess, peripheral neuropathy DJD doubt skin cancer Social history: Nonsmoker. Alcohol rarely. On examination: VITAL SIGNS: 99, 99, 12, 125/72, 96% on room air GENERAL APPEARANCE: Reclining in bed, awake, comfortable HEENT: Normal external appearance of nose and ear. Oral cavity normal EYES: Pupils equal. Conjunctiva normal. NECK: JVD not raised. Mass not palpable. RESPIRATORY: Respiratory effort normal. Lungs clear to auscultation. CARDIOVASCULAR: First and second sounds normal. No edema. ABDOMEN: Soft. Minimal tenderness. Midline dressing, Liver and spleen not palpable. . No mass palpable. Sluggish bowel sounds PSYCHIATRY: Alert and oriented x3. Mood and affect normal. INVESTIGATIONS, reviewed in the clinical context: November 10: WBC 6 hemoglobin 8.9 potassium 3.7 creatinine 0.5 for November 09: WBC 6.3 hemoglobin 8.8 potassium 3.8 creatinine 0.66 November 08: globin 9.2 potassium 3.2 creatinine 0.87 WBC 6.5 hemoglobin 9.5 platelets 169 potassium 3.4 creatinine 0.8 AST 134 ALT 105 Assessment and plan: -lysis of extensive adhesions, repair of paraesophageal hernia repair of incisional hernia removal of intraperitoneal mesh for recurrent paraesophageal hernia . epidural , now discontinued --Diabetes mellitus type 2. Follow Accu-Cheks -Chronic fibromyalgia -GERD, S2 blockers -Hyperlipidemia -Essential hypertension, blood pressure improving -Primary osteoarthritis -Hiatal hernia -Restless leg syndrome -Colonic diverticulosis-asymptomatic -Peripheral neuropathy -Hypokalemia. Corrected -Acute postprocedure blood loss anemia. As expected from surgery Discussed with the patient. If discharged to follow-up with PCP Thank you Dr. Squires
== END 2020-11-10 14:08 | disposition home or self-care (01) | DRG 327 ==
LOC: EDSTATUS 08:40 → 2ORMAIN 09:13 → 4SSUR 14:57
PROVIDERS: ADMIT Surgery; ATTEND Surgery
PROC: 0DN80ZZ Release Small Intestine, Open Approach (ICD-10-PCS; 2020-11-06)
PROC: 0WPF0JZ Removal of Synthetic Substitute from Abdominal Wall, Open Approach (ICD-10-PCS; 2020-11-06)
PROC: 0WQF0ZZ Repair Abdominal Wall, Open Approach (ICD-10-PCS; 2020-11-06)
PROC: 0BQT0ZZ Repair Diaphragm, Open Approach (ICD-10-PCS; principal; 2020-11-06 11:25)
DX: K44.9 Diaphragmatic hernia without obstruction or gangrene (principal); D62 Acute posthemorrhagic anemia; K21.9 Gastro-esophageal reflux disease without esophagitis; M79.7 Fibromyalgia; H91.90 Unspecified hearing loss, unspecified ear; E78.5 Hyperlipidemia, unspecified; I10 Essential (primary) hypertension; M19.91 Primary osteoarthritis, unspecified site; M10.9 Gout, unspecified; Z96.653 Presence of artificial knee joint, bilateral; Z80.0 Family history of malignant neoplasm of digestive organs; Z82.3 Family history of stroke; Z79.84 Long term (current) use of oral hypoglycemic drugs; Z88.0 Allergy status to penicillin; G25.81 Restless legs syndrome; K57.30 Diverticulosis of large intestine without perforation or abscess without bleeding; E11.42 Type 2 diabetes mellitus with diabetic polyneuropathy; H40.9 Unspecified glaucoma; E87.6 Hypokalemia; K43.2 Incisional hernia without obstruction or gangrene; K66.0 Peritoneal adhesions (postprocedural) (postinfection); Z85.828 Personal history of other malignant neoplasm of skin; Z90.710 Acquired absence of both cervix and uterus; Z96.1 Presence of intraocular lens
CPT/HCPCS: 74240; 80048; 80053; 83735; 84132; 85025; 88300

== ENCOUNTER → 2021-02-25 | Outpatient (CLI) | payer MEDICARE ==
[2021-02-25 12:28] VITALS: BP 129/78; PULSE 79; RESP 16; TEMP 98
--- NOTE | 2021-02-25 13:10 | P.GSHP ---
History of Present Illness H&P Date: 02/25/21 Chief Complaint: abnormal mammogram right breast The patient is a 75-year-old white female who presents for breast evaluation. She was seen in consultation for Dr. Hernandez regarding a radiographic abnormality in her right breast. She does not feel any lumps masses or nodules of concern in either breast. In the right breast there was an area of concern for which stereotactic core biopsy was recommended. This was a nodular density which was not seen on ultrasound. No lesions of concern were noticed in the left breast. She has had bilateral breast biopsies in the past approximately 2019 which were negative for cancer. nicotine: Negative Caffeine: tea 4 glasses/day chocolate: occasional Family history: 1. Maternal grandmother: Breast cancer 2. Pelvic: Lung cancer 3. Mother: Questionable colon cancer 4. Paternal grandmother: Colon cancer Past surgical history: 1. Bladder suspension/hysterectomy 2. Bilateral knee replacement 3. Left breast surgery, right breast surgery 4. Partial colon resection diverticulitis 5. Cholecystectomy 6. Appendectomy 7. Foot surgery 8. Hernia repair times 2 Medical history: 1. Diabetes 2. Hypertension 3. High cholesterol 4. Depression 5. Back pain 6. obesity Social history: Smoke: Negative Alcohol: Negative Drugs: Negative - Constitutional Constitutional: Denies chills, Denies fever - EENT Comment: glaucoma/ bilateral laser surgery Eyes: bilateral blurred vision, denies pain Ears: right: decreased hearing, bilateral: tinnitus Ears, nose, mouth and throat: Denies headache, Denies sore throat - Breasts Breasts: bilateral: as per HPI - Cardiovascular Comment: flutter follows with cardiology - Respiratory Comment: SOB with walking - Gastrointestinal Gastrointestinal: Denies abdominal pain, Denies diarrhea, Denies nausea, Denies vomiting - Genitourinary (Female) Genitourinary: Denies dysuria, Denies hematuria - Menstruation Menstruation: Reports post hysterectomy - Musculoskeletal Musculoskeletal: Reports myalgias - Integumentary Integumentary: Denies pruritus, Denies rash - Neurological Neurological: Reports weakness - Psychiatric Psychiatric: Denies anxiety, Denies depression - Endocrine Endocrine: Reports fatigue, Reports weight change - Hematologic/Lymphatic Comment: none - Allergic/Immunologic Allergic/Immunologic: Reports as per HPI Past Medical History Past Medical History: Cancer, Chest Pain / Angina, Diabetes Mellitus, Eye Disorder, Fibromyalgia, GERD/Reflux, Hearing Disorder / Deafness, Hyperlipidemia, Hypertension, Osteoarthritis (OA), Pneumonia, Supraventricular Tachycardia (SVT) Additional Past Medical History / Comment(s): Intestinal adhesions, RESTLESS LEG, Hiatal HERNIA, MENIERES, DIVERTICULITIS, GLAUCOMA R eye, (NOT CURRENTLY ON ANY MEDICATIONS FOR) NEUROPATHY bilateral legs, hx anemia. Irregular heartbeat. DDD, Difficulty hearing certain tones. gout, skin cancer, admission Aug 2020 for intestinal abscess and UTI per pt. History of Any Multi-Drug Resistant Organisms: None Reported Past Surgical History: Appendectomy, Bladder Surgery, Bowel Resection, Cholecystectomy, Ear Surgery, Heart Catheterization, Hernia Repair, Hysterectomy, Joint Replacement, Orthopedic Surgery, Tonsillectomy, Tubal Ligation Additional Past Surgical History / Comment(s): Direct Microlaryngoscopy and removal left vocal cord mass.RIGHT BREAST BX, Diagnostic laparoscopy with lysis of adhesions. LUBNA KNEE REPLACEMENT, EYE surgery for cataracts bilaterally with lens implants, TUBE IN RIGHT EAR FOR MENIERES, LEFT THUMB SURGERY, hiatal hernia repair, abdominal ventral hernia repair, EGD-esophagus stretched x3, spur removal left heel Past Anesthesia/Blood Transfusion Reactions: Previous Problems w/ Anesthesia, Motion Sickness, Postoperative Nausea & Vomiting (PONV) Additional Past Anesthesia/Blood Transfusion Reaction / Comment(s): MENIERE'S, STATES "DIFF INTUBATION-JAW LOCKED UP AFTER A PREVIOUS INTUBATION". "scraped vocal cord-evaluated by Dr Smart", difficult IV start Past Psychological History: No Psychological Hx Reported Smoking Status: Former smoker Past Alcohol Use History: Rare Additional Past Alcohol Use History / Comment(s): Smoked x 5 years off and on less then a ppd, quit 30 years ago. Past Drug Use History: None Reported - Past Family History Brother(s) Family Medical History: Cancer Mother Family Medical History: Cancer, CVA/TIA, Deep Vein Thrombosis (DVT) Additional Family Medical History / Comment(s): STOMACH CANCER Father Family Medical History: No Reported History Additional Family Medical History / Comment(s): COMMITTED SUICIDE Medications and Allergies Home Medications Medication Instructions Recorded Confirmed Type Evolocumab [Repatha Syringe] 140 mg SQ Q14D 11/17/18 02/25/21 History Fenofibrate [Lofibra] 160 mg PO QAM 11/17/18 02/25/21 History Gabapentin [Neurontin] 300 mg PO HS 12/01/19 02/25/21 History Metoprolol Succinate [Toprol XL] 25 mg PO QAM 09/05/20 02/25/21 History metFORMIN HCL [Glucophage] 1,000 mg PO BID 09/05/20 02/25/21 History traZODone HCL [Desyrel] 50 mg PO HS 09/05/20 02/25/21 History Losartan/Hydrochlorothiazide 1 tab PO QAM 09/18/20 02/25/21 History [Hyzaar 100-25 Tablet] Furosemide [Lasix] 20 mg PO QAM 10/14/20 02/25/21 History Omeprazole 40 mg PO QAM 10/14/20 02/25/21 History Acetaminophen Tab [Tylenol] 650 mg PO Q6H #30 tab 10/19/20 02/25/21 Rx HYDROcodone/APAP 5-325MG [[place] 1 tab PO Q6HR PRN 3 Days #10 tab 11/10/20 02/25/21 Rx 5-325] Allergies Allergy/AdvReac Type Severity Reaction Status Date / Time Penicillins Allergy Rash/Hives Verified 02/25/21 12:20 [id number]-Vrd Reductase Allergy Rash/Hives Verified 02/25/21 12:20 Inhibitor adhesive AdvReac Rash/Hives Verified 02/25/21 12:20 aspirin AdvReac STOMACH Verified 02/25/21 12:20 UPSET/HEARTBURN Surgical - Exam Vital Signs Temp Pulse Resp BP Pulse Ox 98.0 F 79 16 129/78 99 02/25/21 12:24 02/25/21 12:24 02/25/21 12:24 02/25/21 12:24 02/25/21 12:24 - General no distress - Eyes normal ocular movement - ENT normal nares - Neck no masses, trachea midline - Respiratory normal respiratory effort, clear to auscultation - Cardiovascular Systolic ejection murmur Heart Sounds: normal: S1, S2 - Abdomen Abdomen: soft - Integumentary normal turgor Flaky skin lesion left shoulder region approximately 8 mm in size - Neurologic no disoriented, no combative - Musculoskeletal normal gait, normal posture - Psychiatric oriented to time, oriented to person, oriented to place, speech is normal, memory intact Breast exam: BRA: XL sports bra inspection: Bilateral grade 3 ptosis Palpation: Right breast: Multi-positional exam fibrocystic changes no dominant masses or nodules of concern Right axilla: No adenopathy of concern Left breast: Multi-positional exam fibrocystic changes no dominant masses or nodules of concern Left axilla: No adenopathy of concern Results Mammogram reviewed with Dr. Xie, nodular density noted in the right breast Assessment and Plan Assessment: Impression: 1. Mammographic abnormality right breast for which stereotactic core biopsy is recommended 2. Fibrocystic breast changes 3. Diabetes 4. High cholesterol 5. Hypertension 6. Heart murmur atrial flutter 7. fatigue Plan: 1. stero biopsy of the right breast lesion; after review with Dr. Butts is felt that the lesion is sufficiently suspicious that if were to come back benign it would be considered discordant and it should be removed 2. medical clearance from Dr. Hernandez 3. medical clearance cardiology CC: Dr. Hernandez
== END ==
LOC: WWCWWP 12:09
PROVIDERS: ATTEND Surgery
DX: N60.11 Diffuse cystic mastopathy of right breast (principal); E78.00 Pure hypercholesterolemia, unspecified; I10 Essential (primary) hypertension; I48.92 Unspecified atrial flutter; R53.83 Other fatigue; F32.9 Major depressive disorder, single episode, unspecified; E66.9 Obesity, unspecified; K21.9 Gastro-esophageal reflux disease without esophagitis; E78.5 Hyperlipidemia, unspecified; M19.90 Unspecified osteoarthritis, unspecified site; E11.40 Type 2 diabetes mellitus with diabetic neuropathy, unspecified; E11.36 Type 2 diabetes mellitus with diabetic cataract; Z79.84 Long term (current) use of oral hypoglycemic drugs; Z79.899 Other long term (current) drug therapy; Z88.0 Allergy status to penicillin; Z88.8 Allergy status to other drugs, medicaments and biological substances; Z91.048 Other nonmedicinal substance allergy status; Z88.6 Allergy status to analgesic agent; Z87.891 Personal history of nicotine dependence; Z68.27 Body mass index [BMI] 27.0-27.9, adult

== ENCOUNTER → 2021-02-25 | Outpatient (CLI) | payer MEDICARE ==
--- NOTE | 2021-03-01 09:02 | MM ---
Reason for exam: additional evaluation requested from prior study. Last mammogram was performed 2 years and 1 month ago. History: Patient is postmenopausal. Family history of breast cancer in grandmother. Benign excisional biopsy of the left breast, July 2018. Benign excisional biopsy of the right breast, June 2018. Physical Findings: Nurse did not find any significant physical abnormalities on exam. MG 3D Diag Mammo W/Cad LUBNA Bilateral CC and MLO view(s) were taken. Prior study comparison: February 04, 2019, bilateral MG 3d diag mammo w/cad LUBNA. April 05, 2018, bilateral MG 3d screening mammo w/cad. There are scattered fibroglandular densities. Right 12 o'clock 8mm nodule, 10cm from nipple, spiculated nodule, ultrasound right breast. Ultrasound follow up right from prior. Left breast stable, no change. These results were verbally communicated with the patient and result sheet given to the patient on 02/25/21. ASSESSMENT: Incomplete: need additional imaging evaluation, BI-RAD 0 RECOMMENDATION: Ultrasound of the right breast.
--- NOTE | 2021-03-01 09:05 | USB ---
Reason for exam: additional evaluation requested from abnormal screening. History: Patient is postmenopausal. Family history of breast cancer in grandmother. Benign excisional biopsy of the left breast, July 2018. Benign excisional biopsy of the right breast, June 2018. US Breast Limited RT Technologist: Holly Rodriguez Right limited breast ultrasound including focal area of concern, retroareolar and axilla demonstrates a 0.4 x 0.5 x 0.3cm cystic lesion at 1 o'clock, probable cyst, a 0.2 x 0.3 x 0.3cm cystic lesion at 12 o'clock, probable cyst, lymph node at 12 o'clock cortex 2.8mm, and a 0.8 x 0.5 x 0.3cm cystic lesion at 12 o'clock, probable cyst. No sonographic findings for new nodule, suspicious, stereotactic biopsy recommended. These results were verbally communicated with the patient and result sheet given to the patient on 02/25/21. ASSESSMENT: Suspicious, BI-RAD 4 RECOMMENDATION: Stereotactic core biopsy of the right breast. Called Dr. Hernandez's office with mammographic findings and has scheduled an appointment for the patient for 02/24/21 at 12:[address] Reese. Biopsy scheduled for 04/01/21 at 7:00. PRELIMINARY REPORT CALLED AND FAXED TO DR. REESE ON 03/01/21.
== END | disposition home or self-care (01) ==
LOC: RADMAMWWP 08:49
PROVIDERS: ATTEND Family Medicine
DX: N63.15 Unspecified lump in the right breast, overlapping quadrants (principal); N60.01 Solitary cyst of right breast; Z78.0 Asymptomatic menopausal state; Z80.3 Family history of malignant neoplasm of breast
CPT/HCPCS: 77066; 76642; G0279; 77062

== ENCOUNTER 2021-03-04 06:39 | Day surgery (SDC) | payer MEDICARE ==
[2021-03-03 08:42] VITALS: BMI 27.4
[~2021-03-04 06:39] MED LIST changes: -ACETAMINOPHEN TAB 500 MG TAB PO PRN; -HEPARIN SODIUM,PORCINE 5,000 UNIT/ML 1 ML VIAL SQ PRN; +LACTATED RINGERS 1,000 ML IV SCH; -MIDAZOLAM 2 MG/2 ML VIAL IV PRN; -ONDANSETRON 4 MG/2 ML VIAL IVP ONE
[2021-03-04 07:31] VITALS: TEMP 98.8
[2021-03-04] MEDS ORDERED: DEXAMETHASONE SOD PHOSPHATE 4 MG/ML 1 ML VIAL IV ONE (07:33)
[2021-03-04 07:36] LABS: Glucose,Whole Blood 101 mg/dL (75-99)
[2021-03-04] MEDS ORDERED: PROPOFOL 10 MG/ML 20 ML VIAL IV ONE (07:54)
--- NOTE | 2021-03-04 08:03 | P.GSHP ---
History of Present Illness H&P Date: 03/04/21 Chief Complaint: Screening colonoscopy Cyst 74-year-old female who presents today for screening colonoscopy. Patient denies any significant complaints. Past Medical History Past Medical History: Cancer, Chest Pain / Angina, Diabetes Mellitus, Eye Disorder, Fibromyalgia, GERD/Reflux, Hearing Disorder / Deafness, Hyperlipidemia, Hypertension, Osteoarthritis (OA), Pneumonia, Supraventricular Tachycardia (SVT) Additional Past Medical History / Comment(s): Intestinal adhesions, RESTLESS LEG, Hiatal HERNIA, MENIERES, DIVERTICULITIS, GLAUCOMA R eye, (NOT CURRENTLY ON ANY MEDICATIONS FOR) NEUROPATHY bilateral legs, hx anemia. Irregular heartbeat. DDD, Difficulty hearing certain tones. gout, skin cancer, admission Aug 2020 for intestinal abscess and UTI per pt. History of Any Multi-Drug Resistant Organisms: None Reported Past Surgical History: Appendectomy, Bladder Surgery, Bowel Resection, Breast Surgery, Cholecystectomy, Ear Surgery, Heart Catheterization, Hernia Repair, Hysterectomy, Joint Replacement, Orthopedic Surgery, Tonsillectomy, Tubal Ligation Additional Past Surgical History / Comment(s): Direct Microlaryngoscopy and removal left vocal cord mass.RIGHT BREAST BX, Diagnostic laparoscopy with lysis of adhesions. LUBNA KNEE REPLACEMENT, EYE surgery for cataracts bilaterally with lens implants, TUBE IN RIGHT EAR FOR MENIERES, LEFT THUMB SURGERY, hiatal hernia repair, abdominal ventral hernia repair, EGD-esophagus stretched x3, spur removal left heel,COLONOSCOPY Past Anesthesia/Blood Transfusion Reactions: Previous Problems w/ Anesthesia, Motion Sickness, Postoperative Nausea & Vomiting (PONV) Additional Past Anesthesia/Blood Transfusion Reaction / Comment(s): MENIERE'S, STATES "DIFF INTUBATION-JAW LOCKED UP AFTER A PREVIOUS INTUBATION". "scraped vocal cord-evaluated by Dr Smart", difficult IV start Past Psychological History: No Psychological Hx Reported Additional Psychological History / Comment(s): . Smoking Status: Former smoker Past Alcohol Use History: Rare Additional Past Alcohol Use History / Comment(s): Smoked x 5 years off and on less then a ppd, quit 30 years ago. Past Drug Use History: None Reported - Past Family History Brother(s) Family Medical History: Cancer Mother Family Medical History: Cancer, CVA/TIA, Deep Vein Thrombosis (DVT) Additional Family Medical History / Comment(s): STOMACH CANCER Father Family Medical History: No Reported History Additional Family Medical History / Comment(s): COMMITTED SUICIDE Medications and Allergies Home Medications Medication Instructions Recorded Confirmed Type Evolocumab [Repatha Syringe] 140 mg SQ Q14D 11/17/18 03/03/21 History Fenofibrate [Lofibra] 160 mg PO QAM 11/17/18 03/03/21 History Gabapentin [Neurontin] 300 mg PO HS 12/01/19 03/03/21 History Metoprolol Succinate [Toprol XL] 25 mg PO QAM 09/05/20 03/03/21 History metFORMIN HCL [Glucophage] 1,000 mg PO BID 09/05/20 03/03/21 History traZODone HCL [Desyrel] 50 mg PO HS 09/05/20 03/03/21 History Losartan/Hydrochlorothiazide 1 tab PO QAM 09/18/20 03/03/21 History [Hyzaar 100-25 Tablet] Furosemide [Lasix] 20 mg PO QAM 10/14/20 03/03/21 History Omeprazole 40 mg PO QAM 10/14/20 03/03/21 History Acetaminophen Tab [Tylenol] 650 mg PO Q6H #30 tab 10/19/20 03/03/21 Rx HYDROcodone/APAP 5-325MG [[place] 1 tab PO Q6HR PRN 3 Days #10 tab 11/10/20 03/03/21 Rx 5-325] Allergies Allergy/AdvReac Type Severity Reaction Status Date / Time Penicillins Allergy Rash/Hives Verified 03/03/21 08:34 Fvmmbty-Tvs-Exz Reductase Allergy Rash/Hives Verified 03/03/21 08:34 Inhibitor adhesive AdvReac Rash/Hives Verified 03/03/21 08:34 aspirin AdvReac STOMACH Verified 03/03/21 08:34 UPSET/HEARTBURN Surgical - Exam Vital Signs Temp Pulse Resp BP Pulse Ox 98.8 F 63 20 163/76 96 03/04/21 07:29 03/04/21 07:29 03/04/21 07:29 03/04/21 07:29 03/04/21 07:29 - General well developed, well nourished, no distress - Eyes PERRL - ENT normal pinna - Neck no masses - Respiratory normal expansion - Cardiovascular Rhythm: regular - Abdomen Abdomen: soft, non tender Results - Labs Abnormal Lab Results - Last 24 Hours (Table) 03/04/21 Range/Units 07:32 POC Glucose (mg/dL) 101 H (75-99) mg/dL Assessment and Plan Assessment: We'll perform screening colonoscopy
--- NOTE | 2021-03-04 08:13 | P.OP ---
Date of Procedure: 03/04/21 Preoperative Diagnosis: Screening colonoscopy Postoperative Diagnosis: Reticulosis Colon polyps Procedure(s) Performed: Colonoscopy Anesthesia: MAC Surgeon: Bonifacio Squires Pathology: other (Right colon polyp, transverse colon polyp) Condition: stable Disposition: PACU Description of Procedure: The patient's placed on the endoscopy table in the lateral position. He received IV sedation. Digital rectal exam performed which revealed no abnormalities. Flexible colonoscope was then placed patient anus passed throughout the entire colon. The ileocecal valve was visualized. The cecum appeared normal. There was scattered diverticuli throughout the colon. The right colon contained diverticula. In the mid right colon there was a polyp seen this removed with a cold forcep. Scope was withdrawn there is diverticulosis of the transverse colon in the mid transverse colon another polyp seen this removed with a cold forcep. The descending and sigmoid colon had extensive diverticular changes. Scope was brought back the rectum this appeared normal. Scope was withdrawn for patient.
[2021-03-04 08:16] VITALS: RESP 16
[2021-03-04 08:30] VITALS: BP 136/80; PULSE 63
== END 2021-03-04 08:45 | disposition home or self-care (01) ==
LOC: ORWHC2ENDO 06:39
PROVIDERS: ATTEND Surgery
DX: Z12.11 Encounter for screening for malignant neoplasm of colon (principal); D76.1 Hemophagocytic lymphohistiocytosis; D12.3 Benign neoplasm of transverse colon; E11.36 Type 2 diabetes mellitus with diabetic cataract; E78.5 Hyperlipidemia, unspecified; G25.81 Restless legs syndrome; I10 Essential (primary) hypertension; K21.9 Gastro-esophageal reflux disease without esophagitis; M10.9 Gout, unspecified; M19.90 Unspecified osteoarthritis, unspecified site; M79.7 Fibromyalgia; Z79.84 Long term (current) use of oral hypoglycemic drugs; Z79.899 Other long term (current) drug therapy; Z85.828 Personal history of other malignant neoplasm of skin; Z87.891 Personal history of nicotine dependence; Z88.0 Allergy status to penicillin; Z88.6 Allergy status to analgesic agent; Z88.8 Allergy status to other drugs, medicaments and biological substances; Z96.653 Presence of artificial knee joint, bilateral
CPT/HCPCS: 45380; 45385; 88305; J1100; J2704

== ENCOUNTER → 2021-03-10 | Outpatient (CLI) | payer MEDICARE ==
--- NOTE | 2021-03-10 13:35 | XR ---
EXAMINATION TYPE: XR cervical spine limited DATE OF EXAM: 03/10/2021 TECHNIQUE: Frontal, lateral, oblique, swimmers, and open mouth view of the cervical spine are obtaine d. HISTORY: M54.2 cervicalgia COMPARISON: None FINDINGS: Vertebral body heights are preserved. There is trace retrolisthesis of C3 on 4 measuring 3 mm. Multil evel endplate sclerosis and osteophytosis is seen. Multilevel uncovertebral and facet arthropathy is noted. IMPRESSION: Multilevel disc disease and osteoarthritic changes of the cervical spine with mild retrolisthesis of C3 on 4.
== END | disposition home or self-care (01) ==
LOC: RADXRMAIN 12:37
PROVIDERS: ATTEND Family Medicine
DX: M50.31 Other cervical disc degeneration, high cervical region (principal); M47.812 Spondylosis without myelopathy or radiculopathy, cervical region; M43.12 Spondylolisthesis, cervical region
CPT/HCPCS: 72040

== ENCOUNTER → 2021-04-01 | Day surgery (SDC) | payer MEDICARE ==
[2021-04-01 07:26] VITALS: RESP 16; TEMP 98.4
--- NOTE | 2021-04-01 09:41 | P.PCN ---
Date of Procedure: 04/01/21 Preoperative Diagnosis: Mammographic new suspicious density right breast 12 o'clock position/not seen well on ultrasound Postoperative Diagnosis: Same Procedure(s) Performed: Right breast stereotactic core biopsy Anesthesia: local Surgeon: Christine Reese Pathology: other (Breast tissue sent for pathology, if this is benign will be considered discordant, no microcalcifications this was done for a density) Condition: stable Disposition: same day Indications for Procedure: new suspicious density right breast 12:00 on mammogram Operative Findings: Radiographic specimen did not reveal anything specific, this was not done for microcalcifications, if this is benign would be considered discordant Description of Procedure: The patient is a 76-year-old white female who on a mammogram was noted to have a new suspicious area at 12:00 in the right breast. Ultrasound was performed and did not reveal the lesion. It was therefore recommended she undergo stereotactic core biopsy. Risks and benefits of the procedure were discussed with the patient as well as alternatives such as watchful waiting or open biopsy. Risks include but are not limited to bleeding, infection, reaction to the anesthetic. The patient understood and wished to proceed. The patient was taken to the stereotactic core biopsy room. She was positioned prone on the lower layer table. Site Worker film was obtained cc from above approach was utilized. The area of concern was identified. The lesion was targeted. The breast was prepped using Betadine. 25 mL of 1% lidocaine were used to anesthetize the area of concern. A 9-gauge vacuum-assisted core rotating biopsy needle was utilized. This was driven to the correct coordinates. The needle was fired. A prefire film was not obtained. Post-fire film revealed the needle to be in the correct location. 14 core biopsy specimens were obtained. Although there were no calcifications radiograph was performed to determine if a density could be identified. No density was identified but it was felt that the area of concern had been adequately sampled. A secure rebecca Top-Hat clip was left. The patient tolerated the procedure in stable condition. She will follow with Dr. Armstrong next week. Specimen was sent for pathology. If the lesion is benign it would be considered discordant and resection and the operating room has already been discussed and recommended to the patient.
[2021-04-01 10:12] VITALS: BP 131/74; PULSE 66
--- NOTE | 2021-04-01 10:12 | USB ---
Reason for exam: clinical finding. History: Patient is postmenopausal. Family history of breast cancer in grandmother. Benign excisional biopsy of the left breast, July 2018. Benign excisional biopsy of the right breast, June 2018. US Breast Limited RT Right limited breast ultrasound including focal area of concern, retroareolar and axilla demonstrates a 0.2 x 0.3 x 0.2cm oval lesion too small to characterize at 12 o'clock 7cm from nipple, probably small cyst, a 1.0 x 0.6 x 0.6cm oval, echogenic, probable lymph node at 12 o'clock and a 0.6 x 0.8 x 0.3cm oval, cystic lesion at 11 o'clock. Scanned 11-1 o'clock. These results were verbally communicated with the patient and result sheet given to the patient on 04/01/21. ASSESSMENT: Suspicious, BI-RAD 4 RECOMMENDATION: Stereotactic core biopsy of the right breast.
--- NOTE | 2021-04-01 17:03 | MM ---
EXAMINATION TYPE: MG stereo VAD BX RT DATE OF EXAM: 04/01/2021 COMPARISON: 02/25/2021 CLINICAL HISTORY: 76-year-old female referred for stereotactic core needle biopsy of 12:00 posterior focal asymmetry in the right breast. TECHNIQUE: Stereotactic guided core biopsy 12:00 right breast. FINDINGS: The procedure of stereotactic guided core biopsy was explained to the patient. Benefits, alternatives, and risks were discussed. An informed consent was then obtained. The short[facility] pathway for biopsy was [facility]. [facility]. I performed the localization, then surgeon, Dr. Nathaniel Rivera performed the remainder of the procedure. A vacuum assisted biopsy gun was used to obtain multiple core samples. The patient tolerated the procedure well without any immediate complication. The patient was kept in the radiology department for short stay after the procedure and then discharged home in stable condition. Postbiopsy mammogram shows the clip to appear in satisfactory position relative to the targeted area of concern on the preprocedure images. IMPRESSION: SUCCESSFUL, UNCOMPLICATED STEREOTACTIC GUIDED CORE BIOPSY OF THE 12:00 POSTERIOR RIGHT BREAST NEW FOCAL ASYMMETRY. FULL PATHOLOGY RESULTS TO FOLLOW. CASE IS DISCUSSED WITH DR. NATHANIEL RIVERA. IF BENIGN RESULTS, GIVEN THAT THIS FOCAL ASYMMETRY IS NEW WITH AN IRREGULAR APPEARANCE, CONSIDERATION CAN BE GIVEN TO NEEDLE LOCALIZATION AND EXCISION. Pathology Results: Benign RIGHT BREAST, CORE BIOPSY: Nodular fat necrosis with acute and chronic inflammation, focal usual ductal hyperplasia and stromal fibrosis. Current specimen negative for malignancy. See note. Recommendation Follow up mammogram and ultrasound of the right breast in 6 months. URMILAD
== END ==
LOC: RADMAMWWP 07:02
PROVIDERS: ATTEND Surgery
DX: N63.15 Unspecified lump in the right breast, overlapping quadrants (principal)
CPT/HCPCS: 88305; 88342; 19081; 76642; A4648; J2001

== ENCOUNTER → 2021-04-08 | Outpatient (CLI) | payer MEDICARE ==
--- NOTE | 2021-04-08 13:09 | XR ---
EXAMINATION TYPE: XR shoulder complete RT DATE OF EXAM: 04/08/2021 Comparison: 06/26/2016 Clinical History: 76-year-old female M25.511 PAIN IN RIGHT SHOULDER Findings: Mild to moderate degenerative joint space narrowing and marginal spurring at the acromioclavicular hali int. Subacromial space is preserved. There is degenerative spurring at the glenohumeral joint and bon y irregularity at the greater tuberosity. No acute fracture, subluxation, dislocation. Impression: 1. At least mild glenohumeral joint OA. 2. [id number] AC joint OA. 3. Bony irregularity at the greater tuberosity suggests chronic rotator cuff tendinopathy. If further evaluation is desired, MRI can be performed.
== END | disposition home or self-care (01) ==
LOC: RADXRMAIN 10:00
PROVIDERS: ATTEND Family Medicine
DX: M19.011 Primary osteoarthritis, right shoulder (principal)

== ENCOUNTER → 2021-04-15 | Outpatient (CLI) | payer MEDICARE ==
[2021-04-15 10:35] VITALS: BP 146/77; PULSE 67; RESP 18; TEMP 98.2
--- NOTE | 2021-04-15 10:59 | P.PN ---
Subjective Progress Note Date: 04/15/21 Principal diagnosis: Fat necrosis right breast/status post stereo biopsy Karolina is a 76-year-old white female status post stereotactic core biopsy of an area of concern in the right breast. Initially we were concerned that if this were not positive that would be discordant and she would need to have needle local excisional biopsy. The pathology revealed nodular fat necrosis with acute and chronic inflammation. This has been reviewed in depth with radiology and it is felt that it is concordant with the findings. Patient states that since the biopsy she has noticed a palpable nodularity at the site of the biopsy. She does not complain of any fever or chills. She does not complain of any ecchymosis. The area of concern is 2 cm x 1.5 cm. Objective - Vital Signs Vital signs: Vital Signs Temp 98.2 F 04/15/21 10:33 Pulse 67 04/15/21 10:33 Resp 18 04/15/21 10:33 BP 146/77 04/15/21 10:33 Pulse Ox 96 04/15/21 10:33 Intake & Output 04/14/21 04/15/21 04/15/21 18:59 06:59 18:59 Weight 73.028 kg - Constitutional General appearance: Present: cooperative - EENT Eyes: Present: EOMI ENT: Present: hearing grossly normal - Neck Neck: Present: normal ROM - Respiratory Respiratory: bilateral: CTA - Cardiovascular Heart sounds: normal: S1, S2 - Integumentary Integumentary Comment(s): Biopsy site clean and dry right breast Area of nodularity 2 x 1.5 cm noted at the biopsy site/believe that this represents a resolving hematoma versus fat necrosis at the site of biopsy - Musculoskeletal Musculoskeletal: Present: gait normal - Psychiatric Psychiatric: Present: A&O x's 3, appropriate affect, intact judgment & insight Assessment and Plan Assessment: Impression: 1. Stereotactic core biopsy right breast reveals fat necrosis, this is felt to be concordant as per radiology 2. Fibrocystic breast changes 3. Diabetes 4. High cholesterol 5. Hypertension 6. Heart murmur/atrial flutter 7. Fatigue 8. Palpable nodularity at site of biopsy approximately 2 x 1.5 cm no evidence of infection or ecchymosis Plan: 1. After discussion with radiology and the patient is recommended that close surveillance be obtained. The patient will have a repeat right breast mammogram and ultrasound in 6 months 2. The patient will follow here in one month to assure that the area which is now palpable has not increased in size 3. The patient will call us sooner if she has any questions or concerns The patient understands I cannot guarantee her that this is not a malignancy however based on the pathologic diagnosis and after review with Dr. Estrella it was felt reasonable to wait for 6 months for further evaluation of the right breast. Therefore at this time for surgical procedures going to be canceled. CC: Dr. Hernandez
== END ==
LOC: WWCWWP 09:53
PROVIDERS: ATTEND Surgery
DX: N64.1 Fat necrosis of breast (principal); N63.10 Unspecified lump in the right breast, unspecified quadrant; N60.11 Diffuse cystic mastopathy of right breast; E11.9 Type 2 diabetes mellitus without complications; E78.00 Pure hypercholesterolemia, unspecified; I10 Essential (primary) hypertension; I48.92 Unspecified atrial flutter; R53.83 Other fatigue; Z79.84 Long term (current) use of oral hypoglycemic drugs; Z79.899 Other long term (current) drug therapy; Z87.891 Personal history of nicotine dependence; Z88.0 Allergy status to penicillin; Z88.8 Allergy status to other drugs, medicaments and biological substances; Z88.6 Allergy status to analgesic agent; Z91.048 Other nonmedicinal substance allergy status

== ENCOUNTER 2021-05-02 07:36 | Emergency (ER) | payer MEDICARE ==
[2021-05-02 07:41] VITALS: PULSE 88; TEMP 98.2
[2021-05-02] MEDS ORDERED: ACETAMINOPHEN TAB 500 MG TAB PO STA (08:09)
[2021-05-02] MEDS ORDERED: ALBUTEROL HFA INHALER INHALATION STA (08:09)
[2021-05-02] MEDS ORDERED: SODIUM CHLORIDE 0.9% 1,000 ML IV STA (08:10)
--- NOTE | 2021-05-02 08:13 | ED ---
General Adult HPI - General Chief complaint: Upper Respiratory Infection Stated complaint: Cough Time Seen by Provider: 05/02/21 08:03 Source: patient, RN notes reviewed Mode of arrival: wheelchair Limitations: no limitations - History of Present Illness Initial comments: Patient is a pleasant 76-year-old female presenting to the emergency department with concerns for cough and congestion. Onset of symptoms was around 10 days ago. Patient does have cough with chest congestion. Patient has mild sore throat. Patient has mild headache. No fevers. Patient does have fatigue. Patient has loss of taste. Symptoms have progressively worsened since onset. No history of previous lung disease. - Related Data Home Medications Medication Instructions Recorded Confirmed Evolocumab [Repatha Syringe] 140 mg SQ Q14D 11/17/18 05/02/21 Fenofibrate [Lofibra] 160 mg PO DAILY 11/17/18 05/02/21 Gabapentin [Neurontin] 300 mg PO HS 12/01/19 05/02/21 metFORMIN HCL [Glucophage] 1,000 mg PO BID 09/05/20 05/02/21 Losartan/Hydrochlorothiazide 1 tab PO DAILY 09/18/20 05/02/21 [Hyzaar 100-25 Tablet] Omeprazole 40 mg PO DAILY 10/14/20 05/02/21 Acetaminophen Tab [Tylenol] 650 mg PO Q6H PRN 05/02/21 05/02/21 Aspirin EC [Ecotrin Low Dose] 81 mg PO DAILY PRN 05/02/21 05/02/21 Desvenlafaxine [Desvenlafaxine ER] 50 mg PO DAILY 05/02/21 05/02/21 HYDROcodone/APAP 7.5-325MG [[place] 1 tab PO BID PRN 05/02/21 05/02/21 7.5-325] HYDROcodone/APAP 7.5-325MG [[place] 1.5 tab PO HS PRN 05/02/21 05/02/21 7.5-325] Metoprolol Succinate (ER) [Toprol 50 mg PO DAILY 05/02/21 05/02/21 Xl] rOPINIRole HCL [Requip] 0.25 mg PO HS 05/02/21 05/02/21 Previous Rx's Medication Instructions Recorded Albuterol Sulfate [Albuterol 2 puff INHALATION Q6H PRN #8.5 gm 05/02/21 Sulfate Hfa] Allergies Allergy/AdvReac Type Severity Reaction Status Date / Time Penicillins Allergy Rash/Hives Verified 05/02/21 08:56 Geonoqy-Nza-Rox Reductase Allergy Rash/Hives Verified 05/02/21 08:56 Inhibitor adhesive AdvReac Rash/Hives Verified 05/02/21 08:56 aspirin AdvReac STOMACH Verified 05/02/21 08:56 UPSET/HEARTBURN Review of Systems ROS Statement: Those systems with pertinent positive or pertinent negative responses have been documented in the HPI. ROS Other: All systems not noted in ROS Statement are negative. Constitutional: Denies: fever Eyes: Denies: eye pain ENT: Reports: throat pain. Denies: ear pain Respiratory: Reports: cough Cardiovascular: Denies: chest pain Endocrine: Reports: fatigue Gastrointestinal: Denies: abdominal pain Genitourinary: Denies: urgency Musculoskeletal: Denies: back pain Skin: Denies: rash Neurological: Denies: weakness Past Medical History Past Medical History: Cancer, Chest Pain / Angina, Diabetes Mellitus, Eye Disorder, Fibromyalgia, GERD/Reflux, Hearing Disorder / Deafness, Hyperlipidemia, Hypertension, Osteoarthritis (OA), Pneumonia, Supraventricular Tachycardia (SVT) Additional Past Medical History / Comment(s): Intestinal adhesions, RESTLESS LEG, Hiatal HERNIA, MENIERES, DIVERTICULITIS, GLAUCOMA R eye, (NOT CURRENTLY ON ANY MEDICATIONS FOR) NEUROPATHY bilateral legs, hx anemia. Irregular heartbeat. DDD, Difficulty hearing certain tones. gout, skin cancer, admission Aug 2020 for intestinal abscess and UTI per pt. History of Any Multi-Drug Resistant Organisms: None Reported Past Surgical History: Appendectomy, Bladder Surgery, Bowel Resection, Cholecystectomy, Ear Surgery, Heart Catheterization, Hernia Repair, Hysterectomy, Joint Replacement, Orthopedic Surgery, Tonsillectomy, Tubal Ligation Additional Past Surgical History / Comment(s): Direct Microlaryngoscopy and removal left vocal cord mass.RIGHT BREAST BX, Diagnostic laparoscopy with lysis of adhesions. LUBNA KNEE REPLACEMENT, EYE surgery for cataracts bilaterally with lens implants, TUBE IN RIGHT EAR FOR MENIERES, LEFT THUMB SURGERY, hiatal hernia repair, abdominal ventral hernia repair, EGD-esophagus stretched x3, spur removal left heel Past Anesthesia/Blood Transfusion Reactions: Previous Problems w/ Anesthesia, Motion Sickness, Postoperative Nausea & Vomiting (PONV) Additional Past Anesthesia/Blood Transfusion Reaction / Comment(s): DIVINA'S, STATES "DIFF INTUBATION-JAW LOCKED UP AFTER A PREVIOUS INTUBATION". "scraped vocal cord-evaluated by Dr Smart", difficult IV start Past Psychological History: No Psychological Hx Reported Smoking Status: Former smoker Past Alcohol Use History: Rare Past Drug Use History: None Reported - Past Family History Brother(s) Family Medical History: Cancer Mother Family Medical History: Cancer, CVA/TIA, Deep Vein Thrombosis (DVT) Additional Family Medical History / Comment(s): STOMACH CANCER Father Family Medical History: No Reported History Additional Family Medical History / Comment(s): COMMITTED SUICIDE General Exam Limitations: no limitations General appearance: alert, in no apparent distress Head exam: Present: normocephalic Eye exam: Present: normal appearance Neck exam: Present: normal inspection Respiratory exam: Present: rhonchi Cardiovascular Exam: Present: regular rate, normal rhythm GI/Abdominal exam: Present: soft. Absent: tenderness Extremities exam: Present: normal inspection. Absent: pedal edema, calf tenderness Neurological exam: Present: alert Psychiatric exam: Present: normal affect, normal mood Skin exam: Present: normal color Course Vital Signs 05/02/21 07:38 Temperature 98.2 F Pulse Rate 88 Respiratory 19 Rate Blood Pressure 148/85 O2 Sat by Pulse 97 Oximetry EKG Findings - EKG Comments: EKG Findings:: Normal sinus rhythm with a rate of 78. CO 146. QRS 70. QT 360. QTC 410. Normal axis. Normal QRS. No acute ST change. Medical Decision Making - Medical Decision Making Patient reevaluated and feeling better following inhaler use. Patient updated on results and need for follow-up. Patient is comfortable with discharge. - Lab Data Result diagrams: 05/02/21 08:12 05/02/21 08:12 Lab Results 05/02/21 05/02/21 05/02/21 Range/Units 08:12 08:12 08:12 WBC 8.7 (3.8-10.6) k/uL RBC 4.38 (3.80-5.40) m/uL Hgb 11.4 (11.4-16.0) gm/dL Hct 34.9 (34.0-46.0) % MCV 79.6 L (80.0-100.0) fL MCH 26.1 (25.0-35.0) pg MCHC 32.8 (31.0-37.0) g/dL RDW 15.3 (11.5-15.5) % Plt Count 247 (150-450) k/uL MPV 8.7 Neutrophils % 68 % Lymphocytes % 24 % Monocytes % 4 % Eosinophils % 2 % Basophils % 1 % Neutrophils # 5.9 (1.3-7.7) k/uL Lymphocytes # 2.0 (1.0-4.8) k/uL Monocytes # 0.4 (0-1.0) k/uL Eosinophils # 0.2 (0-0.7) k/uL Basophils # 0.1 (0-0.2) k/uL PT 9.5 (9.0-12.0) sec INR 0.9 (<1.2) APTT 19.8 L (22.0-30.0) sec Sodium 142 (137-145) mmol/L Potassium 3.8 (3.5-5.1) mmol/L Chloride 107 (98-107) mmol/L Carbon Dioxide 25 (22-30) mmol/L Anion Gap 10 mmol/L BUN 30 H (7-17) mg/dL Creatinine 0.69 (0.52-1.04) mg/dL Est GFR (CKD-EPI)AfAm >90 (>60 ml/min/1.73 sqM) Est GFR (CKD-EPI)NonAf 86 (>60 ml/min/1.73 sqM) Glucose 133 H (74-99) mg/dL Plasma Lactic Acid Maicol (0.7-2.0) mmol/L Calcium 9.8 (8.4-10.2) mg/dL Magnesium 1.6 (1.6-2.3) mg/dL Total Bilirubin 0.4 (0.2-1.3) mg/dL AST 30 (14-36) U/L ALT 16 (4-34) U/L Alkaline Phosphatase 70 (38-126) U/L Lactate Dehydrogenase 559 (313-618) U/L C-Reactive Protein 0.9 (<1.0) mg/dL NT-Pro-B Natriuret Pep pg/mL Total Protein 7.5 (6.3-8.2) g/dL Albumin 4.5 (3.5-5.0) g/dL Coronavirus (PCR) (Not Detectd) 05/02/21 05/02/21 05/02/21 Range/Units 08:12 08:12 08:12 WBC (3.8-10.6) k/uL RBC (3.80-5.40) m/uL Hgb (11.4-16.0) gm/dL Hct (34.0-46.0) % MCV (80.0-100.0) fL MCH (25.0-35.0) pg MCHC (31.0-37.0) g/dL RDW (11.5-15.5) % Plt Count (150-450) k/uL MPV Neutrophils % % Lymphocytes % % Monocytes % % Eosinophils % % Basophils % % Neutrophils # (1.3-7.7) k/uL Lymphocytes # (1.0-4.8) k/uL Monocytes # (0-1.0) k/uL Eosinophils # (0-0.7) k/uL Basophils # (0-0.2) k/uL PT (9.0-12.0) sec INR (<1.2) APTT (22.0-30.0) sec Sodium (137-145) mmol/L Potassium (3.5-5.1) mmol/L Chloride (98-107) mmol/L Carbon Dioxide (22-30) mmol/L Anion Gap mmol/L BUN (7-17) mg/dL Creatinine (0.52-1.04) mg/dL Est GFR (CKD-EPI)AfAm (>60 ml/min/1.73 sqM) Est GFR (CKD-EPI)NonAf (>60 ml/min/1.73 sqM) Glucose (74-99) mg/dL Plasma Lactic Acid Ma[place] 1.1 (0.7-2.0) mmol/L Calcium (8.4-10.2) mg/dL Magnesium (1.6-2.3) mg/dL Total Bilirubin (0.2-1.3) mg/dL AST (14-36) U/L ALT (4-34) U/L Alkaline Phosphatase (38-126) U/L Lactate Dehydrogenase (313-618) U/L C-Reactive Protein (<1.0) mg/dL NT-Pro-B Natriuret Pep 64 pg/mL Total Protein (6.3-8.2) g/dL Albumin (3.5-5.0) g/dL Coronavirus (PCR) Not Detected (Not Detectd) - Radiology Data Radiology results: image reviewed (Chest x-ray shows no acute process.) Disposition Clinical Impression: Bronchitis Disposition: HOME SELF-CARE Condition: Stable Instructions (If sedation given, give patient instructions): Upper Respiratory Infection (ED) Additional Instructions: Please follow-up with primary care physician in the next day or 2 for recheck. Return for difficulty breathing, fevers, worsening or changing symptoms or other concerns. Prescription for inhaler sent to your pharmacy. Prescriptions: Albuterol Sulfate [Albuterol Sulfate Hfa] 2 puff INHALATION Q6H PRN #8.5 gm PRN Reason: Shortness Of Breath Is patient prescribed a controlled substance at d/c from ED?: No Referrals: Damir Hernandez DO [Primary Care Provider] - 1-2 days Time of Disposition: 09:56
[2021-05-02 08:22] LABS: Basophils # (A) 0.1 k/uL (0-0.2); Basophils % (A) 1 %; Eosinophils # (A) 0.2 k/uL (0-0.7); Eosinophils % (A) 2 %; HCT 34.9 % (34.0-46.0); HGB 11.4 gm/dL (11.4-16.0); Lymphocytes % (A) 24 %; MCH 26.1 pg (25.0-35.0); MCHC 32.8 g/dL (31.0-37.0); MCV 79.6 fL (80.0-100.0); Mean Platelet Volume 8.7; Monocytes # (A) 0.4 k/uL (0-1.0); Monocytes % (A) 4 %; Neutrophils # (A) 5.9 k/uL (1.3-7.7); Neutrophils % (A) 68 %; Platelet Count 247 k/uL (150-450); RBC 4.38 m/uL (3.80-5.40); RDW 15.3 % (11.5-15.5); WBC 8.7 k/uL (3.8-10.6)
[2021-05-02 08:34] LABS: ALT 16 U/L (4-34); AST 30 U/L (14-36); African American GFR (CKD) >90 (>60 ml/min/1.73 sqM); Albumin 4.5 g/dL (3.5-5.0); Alkaline Phosphatase 70 U/L (38-126); Anion Gap 10 mmol/L; Blood Urea Nitrogen 30 mg/dL (7-17); C Reactive Protein 0.9 mg/dL (<1.0); Calcium 9.8 mg/dL (8.4-10.2); Carbon Dioxide 25 mmol/L (22-30); Chloride 107 mmol/L (98-107); Glucose 133 mg/dL (74-99); LDH 559 U/L (313-618); Magnesium 1.6 mg/dL (1.6-2.3); Non-African American GFR(CKD) 86 (>60 ml/min/1.73 sqM); Potassium 3.8 mmol/L (3.5-5.1); Sodium 142 mmol/L (137-145); Total Bilirubin 0.4 mg/dL (0.2-1.3); Total Protein 7.5 g/dL (6.3-8.2)
[2021-05-02 08:53] LABS: INR 0.9 (<1.2); Prothrombin Time 9.5 sec (9.0-12.0)
[2021-05-02 09:05] LABS: Partial Thromboplastin Time 19.8 sec (22.0-30.0)
--- NOTE | 2021-05-02 09:18 | XR ---
EXAMINATION TYPE: XR chest 1V portable DATE OF EXAM: 05/02/2021 COMPARISON: Chest x-ray September 06, 2020 HISTORY: Cough and congestion. Suspected covid. TECHNIQUE: Single frontal portable view of the chest is obtained. FINDINGS: There are chronic parenchymal changes bilaterally without suspicious new focal air space o pacity, pleural effusion, or pneumothorax seen. The cardiac silhouette size is stable and mildly enl arged with atherosclerotic change aortic knob. The osseous structures are intact. IMPRESSION: Chronic changes and mild cardiomegaly without acute pulmonary process.
[2021-05-02 10:55] VITALS: BP 144/84; RESP 22
[2021-05-03 21:39] LABS: Ferritin 12.3 ng/mL (10.0-291.0)
== END 2021-05-02 10:54 | disposition home or self-care (01) ==
LOC: EC 07:36
DX: J40 Bronchitis, not specified as acute or chronic (principal); E11.36 Type 2 diabetes mellitus with diabetic cataract; I10 Essential (primary) hypertension; E78.5 Hyperlipidemia, unspecified; K21.9 Gastro-esophageal reflux disease without esophagitis; M19.90 Unspecified osteoarthritis, unspecified site; M79.7 Fibromyalgia; Z79.82 Long term (current) use of aspirin; Z79.84 Long term (current) use of oral hypoglycemic drugs; Z79.899 Other long term (current) drug therapy; Z85.828 Personal history of other malignant neoplasm of skin; Z87.891 Personal history of nicotine dependence; Z88.0 Allergy status to penicillin; Z88.6 Allergy status to analgesic agent; Z88.8 Allergy status to other drugs, medicaments and biological substances; Z90.49 Acquired absence of other specified parts of digestive tract
CPT/HCPCS: 36415; 71045; 80053; 82728; 83605; 83615; 83735; 83880; 84145; 85025; 85610; 85730; 86140; 87635; 93005; 94640; 96360; 96361; 99284

== ENCOUNTER → 2021-09-02 | Outpatient (CLI) | payer MEDICARE ==
--- NOTE | 2021-09-02 16:48 | MR ---
EXAMINATION TYPE: MR shoulder RT wo con DATE OF EXAM: 09/02/2021 COMPARISON: Prior MRI 07/15/2016 HISTORY: 76-year-old female M25.511, Fallen on Right shoulder several times. Pain and loss of ROM TECHNIQUE: Multiplanar, multisequence imaging of the right shoulder is performed without contrast. FINDINGS: There is marked tendinosis of the intracapsular portion of the long biceps tendon with split tear ext ending from the biceps anchor down through the extracapsular portion with moderate mediastinal fluid. These findings are new from 2016. There is thickening and heterogeneous signal of the subscapularis tendon and now slight medial sublux ation of the long head biceps tendon in the upper bicipital groove suggesting attritional tearing of the subscapularis. Mild fluid tracks along the superior myotendinous junction of the subscapularis. T he majority of the subscapularis tendon remains intact. Moderate degenerative joint space narrowing with marginal spurring and capsular hypertrophy at the AC joint with joint effusion. Inferior spurring abuts the underlying myotendinous junction of the supra spinatus. There is trace fluid/thickening of the subacromial/subdeltoid bursa. Extensive cystic change at the greater tuberosity compatible with chronic tendinopathy. Marked thicke calista and heterogeneous signal of both supraspinatus and infraspinatus tendons. Areas of intrasubstanc e change are present but no high-grade partial full-thickness tear. No atrophy of the rotator cuff musculature. Moderate irregular cartilage loss throughout the glenoid humeral joint. Some areas show more focal ar eas of more severe full-thickness cartilage loss. Mild remodeling of the bony glenoid and reactive ye bchondral signal change especially inferiorly. Mild glenohumeral joint effusion. No sizable labral tear. No paralabral cyst. Extensive edematous soft tissue replacement in the rotator cuff interval. The inferior glenohumeral l igament is markedly thickened. No Hill-Sachs deformity or os acromiale. No suspicious bone marrow replacement. IMPRESSION: 1. Severe diffuse rotator cuff tendinosis. The supraspinatus and infraspinatus tendons are markedly t hickened and heterogeneous from the tendinosis and show areas of intrasubstance change. No high-grade partial or full-thickness tear is seen. 2. Attritional tear of the superior subscapularis tendon allowing for slight medial subluxation of th e long biceps tendon in the upper bicipital groove. The majority of the subscapularis tendon remains intact. 3. No rotator cuff muscle atrophy. 4. New severe tendinosis and split tear of the entire long head biceps tendon extending to the biceps anchor. Edematous soft tissue thickening in the rotator cuff interval could reflect a corresponding biceps melida sprain or synovitis. 5. Progressive moderate to severe overall glenohumeral joint OA. Similar moderate AC joint OA with mi ld subacromial impingement.
== END | disposition home or self-care (01) ==
LOC: RADMRIMAIN 12:42
PROVIDERS: ATTEND Orthopaedic Surgery
DX: S46.911A Strain of unspecified muscle, fascia and tendon at shoulder and upper arm level, right arm, initial encounter (principal); M67.813 Other specified disorders of tendon, right shoulder; M19.011 Primary osteoarthritis, right shoulder; M25.811 Other specified joint disorders, right shoulder; S43.081A Other subluxation of right shoulder joint, initial encounter; X58.XXXA Exposure to other specified factors, initial encounter

== ENCOUNTER 2021-10-14 07:41 | Day surgery (SDC) | payer MEDICARE ==
[2021-10-12 15:24] VITALS: BMI 30.4
--- NOTE | 2021-10-13 17:11 | HP ---
HISTORY AND PHYSICAL DATE OF SURGERY: 10/14/2021 Karolina Augustin is a 76-year-old patient seen with progressive right shoulder pain. We discussed options for treatment. She elected to proceed with arthroscopy. Consent was obtained. PAST MEDICAL HISTORY: Hypertension, vym-hrnhnfo-gpbtugjqm diabetes. PAST SURGICAL HISTORY: Cholecystectomy, hysterectomy. DAILY MEDICATIONS: Antihypertensive. ALLERGIES: NONE. SOCIAL HISTORY: She denies tobacco use. PHYSICAL EVALUATION OF THE RIGHT SHOULDER: Flexion is 90 degrees. Abduction is 50 degrees. External rotation is 30 degrees with pain and weakness. Tenderness along the anterolateral acromion and rotator cuff insertion site. Impingement is positive at 70 degrees. Drop-arm sign is positive. Cross-body adduction sign is positive. Distal neurovascular exam is intact. Right shoulder radiographs revealed a type 2 acromion, evidence for acromioclavicular joint osteoarthritis and cystic changes of the tuberosity. MRI right shoulder revealed severe rotator cuff tendinitis, subscapularis rotator cuff tendon tear, partial long head biceps tendon tear, acromioclavicular joint osteoarthritis and impingement. IMPRESSION: 1. Right shoulder impingement with rotator cuff tear. 2. Right shoulder partial long head biceps tendon tear. 3. Right shoulder acromioclavicular joint osteoarthritis. PLAN: Right shoulder arthroscopy with subacromial decompression, arthroscopic rotator cuff repair, Chevy procedure, biceps tenotomy and debridement. MMODL / IJN: [id number] /
[~2021-10-14 07:41] MED LIST changes: +DEXAMETHASONE SOD PHOSPHATE 4 MG/ML 1 ML VIAL IV ONE; +MIDAZOLAM 2 MG/2 ML VIAL IV PRN; +ONDANSETRON 4 MG/2 ML VIAL IVP ONE; +fentaNYL (PF) 50 MCG/ML 2 ML AMP IV PRN
[2021-10-14] MEDS ORDERED: MIDAZOLAM 2 MG/2 ML VIAL IVP ONE (09:01)
[2021-10-14 09:12] VITALS: RESP 16
[2021-10-14] MEDS ORDERED: SUCCINYLCHOLINE CHLORIDE 100 MG/5 ML SYR IV ONE (09:18)
[2021-10-14] MEDS ORDERED: fentaNYL (PF) 50 MCG/ML 2 ML AMP ONE (09:18)
[2021-10-14] MEDS ORDERED: ROCURONIUM 10 MG/ML (5 ML VIAL) IV ONE (09:18)
[2021-10-14] MEDS ORDERED: PHENYLEPHRINE-0.9% NACL SYG 1,000 MCG/10 ML SYRINGE ONE (09:18)
[2021-10-14] MEDS ORDERED: LIDOCAINE 1% INJ 10MG/ML (20 ML MDV) ONE (09:18)
[2021-10-14] MEDS ORDERED: GLYCOPYRROLATE 0.2 MG/ML 2 ML VIAL ONE (09:18)
[2021-10-14] MEDS ORDERED: ROPIVACAINE 5 MG/ML 30 ML VIAL ONE (09:18)
[2021-10-14] MEDS ORDERED: NEOSTIGMINE 1 MG/ML 10 ML VIAL ONE (09:18)
[2021-10-14] MEDS ORDERED: ePHEDrine 50 MG/ML 1 ML VIAL ONE (09:18)
[2021-10-14] MEDS ORDERED: PROPOFOL 10 MG/ML 20 ML VIAL IV ONE (09:18)
--- NOTE | 2021-10-14 10:50 | P.OP ---
Date of Procedure: 10/14/21 Preoperative Diagnosis: Right shoulder impingement Postoperative Diagnosis: 1. Right shoulder rotator cuff tear 2. Right shoulder acromioclavicular joint osteoarthritis 3. Right shoulder impingement 4. Right shoulder partial long head biceps tendon tear Procedure(s) Performed: 1. Right shoulder arthroscopic rotator cuff repair 2. Right shoulder arthroscopic Chevy procedure 3. Right shoulder arthroscopic subacromial decompression 4. Right shoulder arthroscopic biceps tenotomy Implants: 14.75 Arthrex anchor Anesthesia: GETA, regional (Interscalene Block) Surgeon: Akhil Laguerre Paint Mixer #1: Emanuel Arndt Estimated Blood Loss (ml): 11 Pathology: none sent Condition: stable Disposition: PACU Indications for Procedure: 76-year-old patient seen with progressive right shoulder pain. After having treatment options discussed, she elected to proceed with arthroscopy. Operative Findings: see description of procedure Description of Procedure: Patient underwent an interscalene block by department of anesthesia. The patient was then taken to the operative suite. The patient underwent a general anesthetic by the department of anesthesia. The patient was placed into a lateral position and secured. There was appropriate padding of the bony prominence. Right shoulder was then prepped and draped in normal sterile orthopedic fashion. We placed the extremity in 10 pounds of longitudinal traction. A posterior incision was now made for a posterior working portal site. The trocar and cannula were inserted into the glenohumeral joint. Arthroscopy was initiated. Spinal needle was now inserted anteriorly, to ascertain the anterior working portal site. An incision was now made in that area, a trocar was inserted followed by a probe. There were grade 1/2 chondromalacia changes diffusely about the glenohumeral joint with no significant osteochondral tears present. There was some superficial fraying of the anterior and superior labrum. There was some partial tearing and hyperemia long head biceps tendon. I performed an arthroscopic biceps tenotomy. I debrided that superficial tearing of the labrum getting down to stable labral tissue. The residual labrum was probed and it was found to be stable. Instruments were now removed from glenohumeral joint. Utilizing the posterior working portal site, the trocar and cannula were inserted into the subacromial space. Arthroscopy initiated. I made an incision 2 fingerbreadths lateral to the acromion. I introduced my trocar followed by my ArthroCare ablator. I now began ablating thick subacromial bursal tissue, which exposed the undersurface of the anterior acromion. There was diminished subacromial space. There was a very prominent anterior acromion. A motorized bur was introduced and a subacromial decompression was performed. I also excised some osteophytes off the inferior aspect of the distal clavicle. The AC joint was visualized and noted to be fairly arthritic. The motorized bur was introduced in the anterior portal site and a Chevy procedure was performed without difficulty, decompressing the AC joint nicely. I turned my attention to the rotator cuff. There was a 11.5 cm rotator cuff tear along the posterior aspect of the distal supraspinatus. I debrided the margins getting down to stable tendon tissue. The defect measured 1.5 cm and was freely mobile over the footprint. I abraded the footprint with a motorized bur. With the assistance of Rajan WILSON I passed 3 everted mattress sutures through good bites of rotator cuff tendon. I punched a hole in the footprint area for insertion of an anchor. All 6 limbs of suture were now passed through the eyelet of a 4.75 Arthrex swivel lock anchor. I placed the eyelet into pre-punched hole and held it in position while Rajan WILSON tensioned all suture limbs and deployed the anchor with good fixation noted. All residual suture limbs were now clipped. We had good compression of the tendon along the entire footprint. Instruments now removed from the portal sites. All portal sites were approximated with nylon suture. Sterile dressings were applied followed by a shoulder sling. Emanuel WILSON assisted in this case. The patient was awakened, transferred to a bed, and taken to recovery in stable condition.
[2021-10-14 10:53] VITALS: TEMP 97.9
[2021-10-14] MEDS ORDERED: HYDROmorphone 0.5 MG/0.5 ML SYRINGE IVP ONE (11:05)
[2021-10-14 11:55] VITALS: BP 138/77; PULSE 95
--- NOTE | 2021-10-15 09:36 | P.ANPRN ---
Procedure Note - Anesthesia - Nerve Block Performed Right Interscalene Single Time Out Performed: Yes Date of Procedure: 10/14/21 Procedure Start Time: :00 Procedure Stop Time: :03 Location of Patient: PreOp Indication: Acute Post-Operative Pain, Requested by Surgeon Sedation Type: Sedate with meaningful contact maintained Preparation: Sterile Prep Position: Supine Needle Types: Pajunk Needle Gauge: 21 Ultrasound used to visualize needle placement: Yes Ultrasound used to observe medication spread: Yes Blood Aspirated: No Pain Paresthesia on Injection Noted: No Resistance on Injection: Normal Image Stored and Saved: Yes Events: Uneventful and Well Tolerated (Ropivacaine 0.5% 22 mL plus dexamethasone 4 mg)
== END 2021-10-14 12:50 | disposition home or self-care (01) ==
LOC: OR 07:41
PROVIDERS: ATTEND Orthopaedic Surgery
DX: M75.101 Unspecified rotator cuff tear or rupture of right shoulder, not specified as traumatic (principal); M19.011 Primary osteoarthritis, right shoulder; S46.119A Strain of muscle, fascia and tendon of long head of biceps, unspecified arm, initial encounter; X58.XXXA Exposure to other specified factors, initial encounter; Z96.653 Presence of artificial knee joint, bilateral; Z90.49 Acquired absence of other specified parts of digestive tract; R68.81 Early satiety; Z98.890 Other specified postprocedural states; D64.9 Anemia, unspecified; K29.60 Other gastritis without bleeding; J44.9 Chronic obstructive pulmonary disease, unspecified; I25.10 Atherosclerotic heart disease of native coronary artery without angina pectoris; M50.30 Other cervical disc degeneration, unspecified cervical region; I47.1 Supraventricular tachycardia; E11.42 Type 2 diabetes mellitus with diabetic polyneuropathy; Z87.19 Personal history of other diseases of the digestive system; I10 Essential (primary) hypertension; K21.9 Gastro-esophageal reflux disease without esophagitis; E78.5 Hyperlipidemia, unspecified; E04.1 Nontoxic single thyroid nodule; G25.81 Restless legs syndrome; K76.0 Fatty (change of) liver, not elsewhere classified; Z90.710 Acquired absence of both cervix and uterus; Z79.899 Other long term (current) drug therapy; Z79.84 Long term (current) use of oral hypoglycemic drugs; Z88.6 Allergy status to analgesic agent; Z88.0 Allergy status to penicillin; Z88.8 Allergy status to other drugs, medicaments and biological substances; Z91.09 Other allergy status, other than to drugs and biological substances
CPT/HCPCS: 64415; 76942; 29826; 29827; 29824; C1713; J2250; J1100; J2710; J0690; J2405; J2001; J3010; J2795; J2370; J0330; J2704; J1170

== ENCOUNTER → 2021-12-14 | Outpatient (CLI) | payer MEDICARE ==
--- NOTE | 2021-12-14 19:38 | XR ---
EXAMINATION TYPE: XR foot complete RT DATE OF EXAM: 12/14/2021 CLINICAL HISTORY: Plantar surface and heel pain. TECHNIQUE: Frontal, lateral, and oblique images of the right foot are obtained. COMPARISON: None FINDINGS: There is no acute fracture/dislocation evident in the right foot. Flexion in the distal se cond through fifth toes. The joint spaces in the right foot appear within normal limits. Small super ior calcaneal spur. The overlying soft tissue appears unremarkable. IMPRESSION: As above.
== END | disposition home or self-care (01) ==
LOC: RADXRMAIN 16:37
PROVIDERS: ATTEND Family Medicine
DX: M77.31 Calcaneal spur, right foot (principal); M21.271 Flexion deformity, right ankle and toes

== ENCOUNTER 2022-03-16 07:12 | Observation (INO) | payer MEDICARE ==
[2022-03-16] MEDS ORDERED: SODIUM CHLORIDE 0.9% 1,000 ML IV STA (07:24)
--- NOTE | 2022-03-16 07:28 | ED ---
Nausea/Vomiting/Diarrhea HPI - General Chief complaint: Nausea/Vomiting/Diarrhea Stated complaint: Nausea, Vomiting, Weakness Time Seen by Provider: 03/16/22 07:12 Source: patient, RN notes reviewed Mode of arrival: EMS Limitations: no limitations - History of Present Illness Initial comments: 76-year-old female who presents with complaints of nausea vomiting diarrhea started 5 days ago. She did have a negative Franca test at home at that time she persisted having nausea vomiting diarrhea crampy abdominal pain decreased oral intake but no overt fevers chills sweats. She feels very weak. She is complaining of a frontal headache in addition. MD complaint: nausea, vomiting, diarrhea, abdominal pain - Related Data Home Medications Medication Instructions Recorded Confirmed Fenofibrate [Lofibra] 160 mg PO DAILY 11/17/18 10/14/21 Gabapentin [Neurontin] 300 mg PO HS 12/01/19 10/14/21 metFORMIN HCL [Glucophage] 1,000 mg PO BID 09/05/20 10/14/21 Losartan/Hydrochlorothiazide 1 tab PO QAM 09/18/20 10/14/21 [Hyzaar 100-25 Tablet] Omeprazole 40 mg PO QAM 10/14/20 10/14/21 Acetaminophen Tab [Tylenol] 650 mg PO Q6H PRN 05/02/21 10/14/21 Aspirin EC [Ecotrin Low Dose] 81 mg PO DAILY PRN 05/02/21 10/14/21 Desvenlafaxine [Desvenlafaxine ER] 50 mg PO QAM 05/02/21 10/14/21 HYDROcodone/APAP 7.5-325MG [[place] 1 tab PO BID PRN 05/02/21 10/14/21 7.5-325] HYDROcodone/APAP 7.5-325MG [[place] 1.5 tab PO HS PRN 05/02/21 10/14/21 7.5-325] Metoprolol Succinate (ER) [Toprol 50 mg PO QAM 05/02/21 10/14/21 Xl] rOPINIRole HCL [Requip] 0.25 mg PO HS 05/02/21 10/14/21 Previous Rx's Medication Instructions Recorded Albuterol Sulfate [Albuterol 2 puff INHALATION Q6H PRN #8.5 gm 05/02/21 Sulfate Hfa] Allergies Allergy/AdvReac Type Severity Reaction Status Date / Time Penicillins Allergy Rash/Hives Verified 03/16/22 07:23 Wmyqwhk-KCR-BgU Reductase Allergy Rash/Hives Verified 03/16/22 07:23 Inhibitor [Pxjfijg-Bam-Yun Reductase Inhibitor] adhesive AdvReac Rash/Hives Verified 03/16/22 07:23 aspirin AdvReac STOMACH Verified 03/16/22 07:23 UPSET/HEARTBURN Review of Systems ROS Statement: Those systems with pertinent positive or pertinent negative responses have been documented in the HPI. ROS Other: All systems not noted in ROS Statement are negative. Past Medical History Past Medical History: Cancer, Chest Pain / Angina, Diabetes Mellitus, Eye Disorder, Fibromyalgia, GERD/Reflux, Hearing Disorder / Deafness, Hyperlipidemia, Hypertension, Osteoarthritis (OA), Pneumonia, Supraventricular Tachycardia (SVT) Additional Past Medical History / Comment(s): Intestinal adhesions, RESTLESS LEG, Hiatal HERNIA, MENIERES, DIVERTICULITIS, GLAUCOMA right eye, NEUROPATHY bilateral legs, hx anemia, irregular heartbeat, DDD, difficulty hearing certain tones, gout, hx skin cancer. History of Any Multi-Drug Resistant Organisms: None Reported Past Surgical History: Appendectomy, Bladder Surgery, Bowel Resection, Cholecystectomy, Ear Surgery, Heart Catheterization, Hernia Repair, Hysterectomy, Joint Replacement, Orthopedic Surgery, Tonsillectomy, Tubal Ligation Additional Past Surgical History / Comment(s): Direct Microlaryngoscopy and removal left vocal cord mass. RIGHT BREAST Biopsy, diagnostic laparoscopy with lysis of adhesions, bilateral KNEE REPLACEMENTs, EYE surgery for cataracts bilaterally with lens implants, TUBE IN RIGHT EAR FOR MENIERES, LEFT THUMB SURGERY, hiatal hernia repair, abdominal ventral hernia repair, EGD with dilation X3, spur removal left heel. Past Anesthesia/Blood Transfusion Reactions: Previous Problems w/ Anesthesia, Motion Sickness, Postoperative Nausea & Vomiting (PONV) Additional Past Anesthesia/Blood Transfusion Reaction / Comment(s): STATES "DIFFICULT INTUBATION-JAW LOCKED UP AFTER A PREVIOUS INTUBATION". "Have to use child size tube so jaw doesn't lock up". 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 Difficult IV start. Past Psychological History: No Psychological Hx Reported Smoking Status: Former smoker Past Alcohol Use History: Rare Past Drug Use History: None Reported - Past Family History Brother(s) Family Medical History: Cancer Mother Family Medical History: Cancer, CVA/TIA, Diabetes Mellitus, Deep Vein Thrombosis (DVT) Additional Family Medical History / Comment(s): STOMACH CANCER. Father Family Medical History: No Reported History Additional Family Medical History / Comment(s): COMMITTED SUICIDE. General Exam - General Exam Comments Initial Comments: This is a well-developed well-nourished awake alert oriented 4 female Limitations: no limitations General appearance: alert, anxious Head exam: Present: atraumatic, normocephalic, normal inspection Eye exam: Present: normal appearance, PERRL, EOMI. Absent: scleral icterus, conjunctival injection, periorbital swelling ENT exam: Present: mucous membranes dry Neck exam: Present: normal inspection, full ROM, other (No stridor JVD or bruits). Absent: tenderness, meningismus, lymphadenopathy Respiratory exam: Present: normal lung sounds bilaterally. Absent: respiratory distress, wheezes, rales, rhonchi, stridor Cardiovascular Exam: Present: regular rate, normal rhythm, normal heart sounds. Absent: systolic murmur, diastolic murmur, rubs, gallop, clicks GI/Abdominal exam: Present: soft, normal bowel sounds. Absent: distended, tenderness, guarding, rebound, rigid Extremities exam: Present: normal inspection, full ROM, normal capillary refill. Absent: tenderness, pedal edema, joint swelling, calf tenderness Back exam: Present: normal inspection Neurological exam: Present: alert, oriented X3, CN II-XII intact Psychiatric exam: Present: normal affect, normal mood Skin exam: Present: warm, dry, intact, normal color. Absent: rash Course Vital Signs 03/16/22 07:17 Temperature 98.4 F Pulse Rate 95 Respiratory 18 Rate Blood Pressure 140/86 O2 Sat by Pulse 96 Oximetry Medical Decision Making - Medical Decision Making Patient evaluated on several occasions he persists have nausea with headache. He will be admitted I did discuss case with Dr. gore she also demonstrate evidence of hypokalemia. - Lab Data Result diagrams: 03/16/22 07:29 03/16/22 07:29 Lab Results 03/16/22 03/16/22 03/16/22 Range/Units 07:29 07:29 07:29 WBC 7.4 (3.8-10.6) k/uL RBC 4.43 (3.80-5.40) m/uL Hgb 12.6 (11.4-16.0) gm/dL Hct 37.4 (34.0-46.0) % MCV 84.4 (80.0-100.0) fL MCH 28.5 (25.0-35.0) pg MCHC 33.8 (31.0-37.0) g/dL RDW 14.1 (11.5-15.5) % Plt Count 239 (150-450) k/uL MPV 8.0 Neutrophils % 71 % Lymphocytes % 23 % Monocytes % 3 % Eosinophils % 2 % Basophils % 0 % Neutrophils # 5.3 (1.3-7.7) k/uL Lymphocytes # 1.7 (1.0-4.8) k/uL Monocytes # 0.2 (0-1.0) k/uL Eosinophils # 0.1 (0-0.7) k/uL Basophils # 0.0 (0-0.2) k/uL Sodium 142 (137-145) mmol/L Potassium 3.2 L (3.5-5.1) mmol/L Chloride 110 H (98-107) mmol/L Carbon Dioxide 22 (22-30) mmol/L Anion Gap 10 mmol/L BUN 22 H (7-17) mg/dL Creatinine 0.93 (0.52-1.04) mg/dL Est GFR (CKD-EPI)AfAm 71 (>60 ml/min/1.73 sqM) Est GFR (CKD-EPI)NonAf 61 (>60 ml/min/1.73 sqM) Glucose 122 H (74-99) mg/dL Lactic Ac Sepsis Rflx Plasma Lactic Acid Maicol (0.7-2.0) mmol/L Calcium 9.6 (8.4-10.2) mg/dL Total Bilirubin 0.4 (0.2-1.3) mg/dL AST 30 (14-36) U/L ALT 21 (4-34) U/L Alkaline Phosphatase 59 (38-126) U/L Total Protein 7.0 (6.3-8.2) g/dL Albumin 4.4 (3.5-5.0) g/dL Lipase 193 (23-300) U/L Urine Color Yellow Urine Appearance Clear (Clear) Urine pH 5.5 (5.0-8.0) Ur Specific [place] 1.021 (1.001-1.035) Urine Protein Trace H (Negative) Urine Glucose (UA) Negative (Negative) Urine Ketones Negative (Negative) Urine Blood Negative (Negative) Urine Nitrite Negative (Negative) Urine Bilirubin Negative (Negative) Urine Urobilinogen <2.0 (<2.0) mg/dL Ur Leukocyte Esterase Large H (Negative) Urine RBC 1 (0-5) /hpf Urine WBC 37 H (0-5) /hpf Ur Squamous Epith Cells <1 (0-4) /hpf Urine Bacteria Rare H (None) /hpf Urine Mucus Rare H (None) /hpf Coronavirus (PCR) (Not Detectd) 03/16/22 03/16/22 03/16/22 Range/Units 07:29 08:40 09:38 WBC (3.8-10.6) k/uL RBC (3.80-5.40) m/uL Hgb (11.4-16.0) gm/dL Hct (34.0-46.0) % MCV (80.0-100.0) fL MCH (25.0-35.0) pg MCHC (31.0-37.0) g/dL RDW (11.5-15.5) % Plt Count (150-450) k/uL MPV Neutrophils % % Lymphocytes % % Monocytes % % Eosinophils % % Basophils % % Neutrophils # (1.3-7.7) k/uL Lymphocytes # (1.0-4.8) k/uL Monocytes # (0-1.0) k/uL Eosinophils # (0-0.7) k/uL Basophils # (0-0.2) k/uL Sodium (137-145) mmol/L Potassium (3.5-5.1) mmol/L Chloride (98-107) mmol/L Carbon Dioxide (22-30) mmol/L Anion Gap mmol/L BUN (7-17) mg/dL Creatinine (0.52-1.04) mg/dL Est GFR (CKD-EPI)AfAm (>60 ml/min/1.73 sqM) Est GFR (CKD-EPI)NonAf (>60 ml/min/1.73 sqM) Glucose (74-99) mg/dL Lactic Ac Sepsis Rflx Y Plasma Lactic Acid Maicol 2.2 H* (0.7-2.0) mmol/L Calcium (8.4-10.2) mg/dL Total Bilirubin (0.2-1.3) mg/dL AST (14-36) U/L ALT (4-34) U/L Alkaline Phosphatase (38-126) U/L Total Protein (6.3-8.2) g/dL Albumin (3.5-5.0) g/dL Lipase (23-300) U/L Urine Color Urine Appearance (Clear) Urine pH (5.0-8.0) Ur Specific [place] (1.001-1.035) Urine Protein (Negative) Urine Glucose (UA) (Negative) Urine Ketones (Negative) Urine Blood (Negative) Urine Nitrite (Negative) Urine Bilirubin (Negative) Urine Urobilinogen (<2.0) mg/dL Ur Leukocyte Esterase (Negative) Urine RBC (0-5) /hpf Urine WBC (0-5) /hpf Ur Squamous Epith Cells (0-4) /hpf Urine Bacteria (None) /hpf Urine Mucus (None) /hpf Coronavirus (PCR) Not Detected (Not Detectd) - Radiology Data Radiology results: report reviewed (Imaging reviewed no acute findings), image reviewed Disposition Clinical Impression: Dehydration, Intractable nausea and vomiting, Hypokalemia, Cephalgia Disposition: ADMITTED IP TO THIS [facility] Condition: Fair Referrals: Damir Hernandez DO [Primary Care Provider] - 1-2 days Decision Date: 03/16/22 Decision Time: 12:50
[2022-03-16] MEDS: SODIUM CHLORIDE 0.9% 1,000 ML IV STA ×2 (07:32→14:02)
[2022-03-16 07:46] LABS: Basophils % (A) 0 %; Eosinophils # (A) 0.1 k/uL (0-0.7); Eosinophils % (A) 2 %; HCT 37.4 % (34.0-46.0); HGB 12.6 gm/dL (11.4-16.0); Lymphocytes # (A) 1.7 k/uL (1.0-4.8); Lymphocytes % (A) 23 %; MCH 28.5 pg (25.0-35.0); MCHC 33.8 g/dL (31.0-37.0); MCV 84.4 fL (80.0-100.0); Monocytes # (A) 0.2 k/uL (0-1.0); Monocytes % (A) 3 %; Neutrophils # (A) 5.3 k/uL (1.3-7.7); Neutrophils % (A) 71 %; Platelet Count 239 k/uL (150-450); RBC 4.43 m/uL (3.80-5.40); RDW 14.1 % (11.5-15.5); WBC 7.4 k/uL (3.8-10.6)
[2022-03-16 07:58] LABS: Albumin 4.4 g/dL (3.5-5.0); Calcium 9.6 mg/dL (8.4-10.2); Potassium 3.2 mmol/L (3.5-5.1); Total Bilirubin 0.4 mg/dL (0.2-1.3)
--- NOTE | 2022-03-16 08:21 | CT ---
EXAMINATION TYPE: CT brain wo con CT DLP: 1084.4 mGycm, Automated exposure control for dose reduction was used. DATE OF EXAM: 03/16/2022 8:14 AM COMPARISON: Prior CT Brain from 05/05/2020. CLINICAL INDICATION:Female, 76 years old with history of Headache, infection suspected, TECHNIQUE: Brain: Multiple axial CT images of the brain were obtained without IV contrast. Coronal and sagittal reformats reviewed. FINDINGS: Brain: Extra-axial spaces: No abnormal extra-axial fluid collections. Ventricular system: Within normal limits Cerebral parenchyma: No acute intraparenchymal hemorrhage or mass effect. The mark-white junction is well differentiated. Cerebellum: Unremarkable. Mass effect: No evidence of midline shift. Intracranial vasculature: Atherosclerotic calcifications of the intracranial vessels. Soft tissues: Normal. Calvarium/osseous structures: No depressed skull fracture. Paranasal sinuses and mastoid air cells: Postsurgical changes of the right mastoid air cells redemons trated. Left mastoid air cells are clear. Mild mucosal thickening of the right maxillary sinus. Visualized orbits: Bilateral aphakia IMPRESSION: No acute intracranial process. No significant change prior examination.
--- NOTE | 2022-03-16 09:21 | XR ---
EXAMINATION TYPE: XR KUB DATE OF EXAM: 03/16/2022 COMPARISON: None INDICATION: Abdomen pain TECHNIQUE: Single view abdomen upright view FINDINGS: Nonspecific bowel gas pattern is present. Small bowel loops and colon contain air. No free air is meghan dent. No suspicious differential air-fluid levels are present. No mass effect is evident. Psoas margins are normal. No organomegaly is present. Postsurgical markers are evident throughout the abdomen. IMPRESSION: 1. Nonspecific bowel gas pattern.
--- NOTE | 2022-03-16 09:22 | XR ---
EXAMINATION TYPE: XR chest 2V DATE OF EXAM: 03/16/2022 COMPARISON: 05/02/2021 INDICATION: Pain TECHNIQUE: Frontal and lateral views of the chest are obtained. FINDINGS: The heart size is normal. The pulmonary vasculature is normal. The lungs are clear. IMPRESSION: 1. No acute pulmonary process.
[2022-03-16 09:32] LABS: Appearance,Urine Clear (Clear); Bacteria,Urine Rare /hpf; Bilirubin,Urine Negative (Negative); Blood,Urine Negative (Negative); Color,Urine Yellow; Glucose,Urine (UA) Negative (Negative); Ketones,Urine Negative (Negative); Leukocyte Esterase,Urine Large (Negative); Mucus,Urine Rare /hpf; Nitrite,Urine Negative (Negative); PH, Urine 5.5 (5.0-8.0); Protein,Urine Trace (Negative); RBC,Urine 1 /hpf (0-5); Specific Gravity,Urine 1.021 (1.001-1.035); Squamous Epithelial Cell,Urine <1 /hpf (0-4); Urobilinogen,Urine <2.0 mg/dL (<2.0); WBC,Urine 37 /hpf (0-5)
[2022-03-16] MEDS ORDERED: HYDROmorphone 1 MG/ML 1 ML SYRINGE IVP STA (12:42)
[2022-03-16] MEDS ORDERED: ONDANSETRON 4 MG/2 ML VIAL IVP PRN (13:12)
[2022-03-16] MEDS ORDERED: NALOXONE 0.4 MG/ML 1 ML VIAL IV PRN (13:12)
[2022-03-16] MEDS ORDERED: POTASSIUM CHLORIDE 20 MEQ in WATER FOR INJECTION 1 100ML.BAG IVPB STA (13:13)
[2022-03-16] MEDS ORDERED: ALBUTEROL NEBULIZED 2.5 MG/3 ML INHALATION PRN (13:14)
[2022-03-16] MEDS ORDERED: LEVOFLOXACIN 500MG-D5W PMX 500 MG in DEXTROSE/WATER 1 100ML.BAG IVPB SCH (13:15)
[2022-03-16] MEDS: LEVOFLOXACIN 500MG-D5W PMX 500 MG in DEXTROSE/WATER 1 100ML.BAG IVPB ONE ×2 (13:54→14:01)
[2022-03-16] MEDS ORDERED: ACETAMINOPHEN TAB 325 MG TAB PO PRN (14:00)
[2022-03-16] MEDS ORDERED: HYDROcodone/APAP 5-325MG 1 EACH TAB PO PRN (14:00)
[2022-03-16] MEDS: SODIUM CHLORIDE 0.9% 1,000 ML IV SCH ×2 (14:08→20:02)
--- NOTE | 2022-03-16 14:50 | P.HPIM ---
History of Present Illness This is a pleasant 76 years old female with past medical history of coronary artery disease, Diabetes Mellitus, Fibromyalgia, GERD/Reflux, Hearing Disorder / Deafness, Hyperlipidemia, Hypertension, Osteoarthritis , Supraventricular Tachycardia , RESTLESS LEG, Hiatal HERNIA, MENIERES, DIVERTICULITIS, GLAUCOMA right eye, NEUROPATHY bilateral legs, , gout, hx skin cancer. Patient presents because of continuous nausea vomiting and area for the last 4-5 days. Yesterday patient is then bouts of vomiting with no blood in 7 bouts of diarrhea with no blood. She has minimal abdominal discomfort in the lower abdomen, nonradiating cur rently abdominal pain has gone and directed to 0/10 per patient. She denies any dysuria or urgency or any other urinary symptoms. She is breathing quietly and denies chest pain however she has headache. Also she has postural dizziness, She denies weakness or numbness or blurred vision No smoking alcohol or illicit drugs. Vitas looks stable and patient is afebrile. Labs including CBC is unremarkable. Sodium is 142, potassium 3.0. Creatinine 0.9. Lactic acid elevated 2.2 liver enzymes not elevated. Urine analysis is suspicious for infection Coronavirus not detected Review of Systems CONSTITUTIONAL: No fever, no malaise, no fatigue. HEENT: No recent visual problems or hearing problems. Denied any sore throat. CARDIOVASCULAR: No orthopnea, PND, no palpitations, no syncope. PULMONARY: No shortness of breath, no cough, no hemoptysis. -GASTROINTESTINAL: As above NEUROLOGICAL: No headaches, no weakness, no numbness. HEMATOLOGICAL: Denies any bleeding or petechiae. GENITOURINARY: Denies any burning micturition, frequency, or urgency. MUSCULOSKELETAL/RHEUMATOLOGICAL: Denies any joint pain, swelling, or any muscle pain. ENDOCRINE: Denies any polyuria or polydipsia. Past Medical History Past Medical History: Cancer, Chest Pain / Angina, Diabetes Mellitus, Eye Disorder, Fibromyalgia, GERD/Reflux, Hearing Disorder / Deafness, Hyperlipidemia, Hypertension, Osteoarthritis (OA), Pneumonia, Supraventricular Tachycardia (SVT) Additional Past Medical History / Comment(s): Intestinal adhesions, RESTLESS LEG, Hiatal HERNIA, MENIERES, DIVERTICULITIS, GLAUCOMA right eye, NEUROPATHY nicole ateral legs, hx anemia, irregular heartbeat, DDD, difficulty hearing certain tones, gout, hx skin cancer. History of Any Multi-Drug Resistant Organisms: None Reported Past Surgical History: Appendectomy, Bladder Surgery, Bowel Resection, Cholecystectomy, Ear Surgery, Heart Catheterization, Hernia Repair, Hysterectomy, Joint Replacement, Orthopedic Surgery, Tonsillectomy, Tubal Ligation Additional Past Surgical History / Comment(s): Direct Microlaryngoscopy and removal left vocal cord mass. RIGHT BREAST Biopsy, diagnostic laparoscopy with lysis of adhesions, bilateral KNEE REPLACEMENTs, EYE surgery for cataracts bilaterally with lens implants, TUBE IN RIGHT EAR FOR MENIERES, LEFT THUMB SURGERY, hiatal hernia repair, abdominal ventral hernia repair, EGD with dilation X3, spur removal left heel. Past Anesthesia/Blood Transfusion Reactions: Previous Problems w/ Anesthesia, Motion Sickness, Postoperative Nausea & Vomiting (PONV) Additional Past Anesthesia/Blood Transfusion Reaction / Comment(s): STATES "DIFFICULT INTUBATION-JAW LOCKED UP AFTER A PREVIOUS INTUBATION". "Have to use child size tube so jaw doesn't lock up". 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 Difficult IV start. Past Psychological History: No Psychological Hx Reported Smoking Status: Former smoker Past Alcohol Use History: Rare Past Drug Use History: None Reported - Past Family History Brother(s) Family Medical History: Cancer Mother Family Medical History: Cancer, CVA/TIA, Diabetes Mellitus, Deep Vein Thrombosis (DVT) Additional Family Medical History / Comment(s): STOMACH CANCER. Father Family Medical History: No Reported History Additional Family Medical History / Comment(s): COMMITTED SUICIDE. Medications and Allergies Home Medications Medication Instructions Recorded Confirmed Type RX: Fenofibrate [Lofibra] 160 mg PO DAILY 11/17/18 03/16/22 History RX: metFORMIN HCL [Glucophage] 500 mg PO HS 09/05/20 03/16/22 History RX: Losartan/Hydrochlorothiazide 1 tab PO DAILY 09/18/20 03/16/22 History [Hyzaar 100-25 Tablet] RX: Omeprazole 40 mg PO DAILY 10/14/20 03/16/22 History HYDROcodone/APAP 7.5-325MG [[place] 1 tab PO Q6H PRN 05/02/21 03/16/22 History 7.5-325] Metoprolol Succinate (ER) [Toprol 50 mg PO BID 05/02/21 03/16/22 History Xl] Desvenlafaxine [Pristiq ER] 100 mg PO DAILY 03/16/22 03/16/22 History Ezetimibe [Zetia] 10 mg PO HS 03/16/22 03/16/22 History Gabapentin [Neurontin] 400 mg PO HS 03/16/22 03/16/22 History Naproxen [Naprosyn] 500 mg PO BID PRN 03/16/22 03/16/22 History Semaglutide [Ozempic] 0.5 mg SQ FR 03/16/22 03/16/22 History rOPINIRole HCL [Requip] 0.5 mg PO HS 03/16/22 03/16/22 History Allergies Allergy/AdvReac Type Severity Reaction Status Date / Time adhesive Allergy Rash/Hives Verified 03/16/22 13:34 Penicillins Allergy Rash/Hives Verified 03/16/22 13:34 Lzovkqd-GYW-ZlR Reductase Allergy Rash/Hives Verified 03/16/22 13:34 Inhibitor [Rwqxiju-Vgh-Lpr Reductase Inhibitor] aspirin AdvReac STOMACH Verified 03/16/22 13:34 UPSET/HEARTBURN Physical Exam Vitals: Vital Signs Temp Pulse Resp BP Pulse Ox 03/16/22 07:17 98.4 F 95 18 140/86 96 Intake and Output 03/15/22 03/16/22 03/16/22 22:59 06:59 14:59 Other: Weight 74.843 kg GENERAL: The patient is alert and oriented x3, not in any acute distress. Well d eveloped, well nourished. HEENT: Pupils are round and equally reacting to light. EOMI. No scleral icterus. No conjunctival pallor. Normocephalic, atraumatic. No pharyngeal erythema. No thyromegaly. CARDIOVASCULAR: S1 and S2 present. No murmurs, rubs, or gallops. PULMONARY: Chest is clear to auscultation, no wheezing or crackles. ABDOMEN: Soft, nontender, nondistended, normoactive bowel sounds. No palpable organomegaly. MUSCULOSKELETAL: No joint swelling or deformity. EXTREMITIES: No cyanosis, clubbing, or pedal edema. NEUROLOGICAL: Gross neurological examination did not reveal any focal deficits. SKIN: No rashes. No petechiae Results CBC & Chem 7: 03/16/22 07:29 03/16/22 07:29 Labs: Abnormal Lab Results - Last 24 Hours (Table) 03/16/22 03/16/22 03/16/22 Range/Units 07:29 07:29 08:40 Potassium 3.2 L (3.5-5.1) mmol/L Chloride 110 H (98-107) mmol/L BUN 22 H (7-17) mg/dL Glucose 122 H (74-99) mg/dL Plasma Lactic Acid Maicol 2.2 H* (0.7-2.0) mmol/L Urine Protein Trace H (Negative) Ur Leukocyte Esterase Large H (Negative) Urine WBC 37 H (0-5) /hpf Urine Bacteria Rare H (None) /hpf Urine Mucus Rare H (None) /hpf Assessment and Plan Assessment: Acute gastroenteritis, could be viral infection Dehydration secondary to above Asymptomatic bacteriuria rather than acute urinary tract infection Diabetes mellitus Diabetic neuropathy History of GERD History of fibromyalgia Hearing difficulty History of hypertension History of her severe arthritis History of supraventricular tachycardia History of restless leg syndrome History of hiatal hernia History of Mnire's disease Glaucoma Plan: This is a pleasant 76 years old female who presents with signs symptoms of gastroenteritis Continue with liquid diet Pain management IV fluids Check labs and hemoglobin A1c Labs and medication were reviewed.. Continue same treatment. Continue with symptomatic treatment. Resume home medication. Monitor lytes and vitals. DVT and GI prophylaxis. Further recommendations depends on the clinical course of the patient DVT prophylaxis: Subcutaneous heparin GI Prophylaxis: Pepcid PT/OT: Pending Prognosis is guarded
[2022-03-16 16:18] LABS: Glucose,Whole Blood 93 mg/dL (70-110)
[2022-03-16 19:28] LABS: Glucose,Whole Blood 96 mg/dL (70-110)
[2022-03-16] MEDS ORDERED: Potassium Replacement Protocol 1 EACH MISC MISCELLANE PRN (19:29)
[2022-03-16] MEDS ORDERED: POTASSIUM CHLORIDE ER 20 MEQ TAB.ER PO ONE (19:30)
[2022-03-16] MEDS: HEPARIN SODIUM,PORCINE/PF 5,000 UNIT/0.5 ML SYRINGE SQ SCH (19:59)
[2022-03-16] MEDS: GABAPENTIN 400 MG CAP PO SCH (19:59)
[2022-03-16] MEDS ORDERED: EZETIMIBE 10 MG TAB PO SCH (21:00)
[2022-03-16] MEDS: HYDROmorphone 0.5 MG/0.5 ML SYRINGE IVP PRN (21:45)
[2022-03-17] MEDS: SODIUM CHLORIDE 0.9% 1,000 ML IV SCH ×3 (04:41→20:43)
[2022-03-17] MEDS: HYDROmorphone 0.5 MG/0.5 ML SYRINGE IVP PRN (05:06)
[2022-03-17 07:04] LABS: Glucose,Whole Blood 84 mg/dL (70-110)
[2022-03-17 08:39] LABS: Basophils # (A) 0.02 X 10*3/uL (0.00-0.10); Basophils % (A) 0.4 %; Eosinophils # (A) 0.22 X 10*3/uL (0.04-0.35); Eosinophils % (A) 4.5 %; HCT 35.1 % (37.2-46.3); HGB 11.1 g/dL (12.0-15.0); Immature Grans, Automated 0.2 %; Lymphocytes # (A) 2.28 X 10*3/uL (0.90-5.00); Lymphocytes % (A) 46.2 %; MCH 27.2 pg (27.0-32.0); MCHC 31.6 g/dL (32.0-37.0); Mean Platelet Volume 11.1 fL (9.5-12.2); Monocytes # (A) 0.25 X 10*3/uL (0.20-1.00); Monocytes % (A) 5.1 %; NRBC Per 100 WBC 0 /100 WBCS (0.0-0.0); Neutrophils # (A) 2.15 X 10*3/uL (1.80-7.70); Neutrophils % (A) 43.6 %; Platelet Count 192 X 10*3/uL (140-440); RBC 4.08 X 10*6/uL (4.10-5.20); RDW 13.7 % (11.5-14.5); WBC 4.93 X 10*3/uL (4.50-10.00)
[2022-03-17] MEDS ORDERED: LEVOFLOXACIN 500MG-D5W PMX 500 MG in DEXTROSE/WATER 1 100ML.BAG IVPB SCH ×2 (09:00→21:30)
[2022-03-17 09:08] LABS: African American GFR (CKD) 98.9 (60.0-200.0); Anion Gap 10.4 mmol/L (10.00-18.00); BUN/Creat Ratio 15.14 Ratio (12.00-20.00); Blood Urea Nitrogen 10.6 mg/dL (9.0-27.0); Calcium 8.6 mg/dL (8.7-10.3); Carbon Dioxide 23.6 mmol/L (20.0-27.5); Magnesium 1.3 mg/dL (1.5-2.4); Non-African American GFR(CKD) 85.4 (60.0-200.0); Potassium 3.9 mmol/L (3.5-5.5)
[2022-03-17] MEDS: DESVENLAFAXINE SUCCINATE 50 MG TAB.ER.24H PO SCH (09:13)
[2022-03-17] MEDS: HEPARIN SODIUM,PORCINE/PF 5,000 UNIT/0.5 ML SYRINGE SQ SCH ×2 (09:13→20:42)
[2022-03-17] MEDS ORDERED: ONDANSETRON 4 MG TAB PO PRN (10:25)
[2022-03-17] MEDS: HYDROcodone/APAP 10-325MG 1 EACH TAB PO PRN ×2 (10:56→17:25)
[2022-03-17 12:06] LABS: Glucose,Whole Blood 93 mg/dL (70-110)
[2022-03-17] MEDS: MAGNESIUM SULFATE-D5W PMX 1 GM in DEXTROSE/WATER 1 100ML.BAG IVPB SCH ×2 (12:54→14:08)
[2022-03-17] MEDS: PANTOPRAZOLE 40 MG/10 ML VIAL IVP SCH (12:54)
[2022-03-17 16:42] LABS: Glucose,Whole Blood 101 mg/dL (70-110)
[2022-03-17] MEDS: GABAPENTIN 400 MG CAP PO SCH (20:42)
[2022-03-17 21:04] LABS: Glucose,Whole Blood 90 mg/dL (70-110)
[2022-03-17] MEDS ORDERED: PROMETHAZINE 25 MG TAB PO PRN (21:28)
--- NOTE | 2022-03-17 21:33 | P.PN ---
Subjective This is a pleasant 76 years old female with past medical history of coronary artery disease, Diabetes Mellitus, Fibromyalgia, GERD/Reflux, Hearing Disorder / Deafness, Hyperlipidemia, Hypertension, Osteoarthritis , Supraventricular Tachycardia , RESTLESS LEG, Hiatal HERNIA, MENIERES, DIVERTICULITIS, GLAUCOMA right eye, NEUROPATHY bilateral legs, , gout, hx skin cancer. Patient presents because of continuous nausea vomiting and area for the last 4-5 days. Yesterday patient is then bouts of vomiting with no blood in 7 bouts of diarrhea with no blood. She has minimal abdominal discomfort in the lower abdomen, nonradiating currently abdominal pain has gone and directed to 0/10 per patient. She denies any dysuria or urgency or any other urinary symptoms. She is breathing quietly and denies chest pain however she has headache. Also she has postural dizziness, She denies weakness or numbness or blurred vision No smoking alcohol or illicit drugs. Vitas looks stable and patient is afebrile. Labs including CBC is unremarkable. Sodium is 142, potassium 3.0. Creatinine 0.9. Lactic acid elevated 2.2 liver enzymes not elevated. Urine analysis is suspicious for infection Coronavirus not detected 03/17/2022 pt is improving slowly and gradually , no significant dyspnea at rest , no chest pain she reports improvement in her diarrhea and vomiting since admission but not completely resovled urine culture is growing gram negative mo, she is started on levaquin because of her drug allergy to penicillin postural vitals are positive for hypotension but lost her iv line overnight and had to place midline for her Objective - Vital Signs Vital signs: Vital Signs Temp 97.5 F L 03/17/22 07:00 Pulse 76 03/17/22 07:36 Resp 18 03/17/22 07:00 BP 151/82 03/17/22 07:00 Pulse Ox 96 03/17/22 07:36 FiO2 Intake & Output 03/16/22 03/17/22 03/17/22 18:59 06:59 18:59 Intake Total 0 360 Balance 0 360 Weight 74.843 kg Intake: Oral 0 360 Other: Voiding Method Toilet # Voids 4 - Exam GENERAL: The patient is alert and oriented x3, not in any acute distress. Well developed, well nourished. HEENT: Pupils are round and equally reacting to light. EOMI. No scleral icterus. No conjunctival pallor. Normocephalic, atraumatic. No pharyngeal erythema. No thyromegaly. CARDIOVASCULAR: S1 and S2 present. No murmurs, rubs, or gallops. PULMONARY: Chest is clear to auscultation, no wheezing or crackles. ABDOMEN: Soft, nontender, nondistended, normoactive bowel sounds. No palpable organomegaly. MUSCULOSKELETAL: No joint swelling or deformity. EXTREMITIES: No cyanosis, clubbing, or pedal edema. NEUROLOGICAL: Gross neurological examination did not reveal any focal deficits. SKIN: No rashes. No petechiae - Labs CBC & Chem 7: 03/17/22 05:30 03/17/22 05:30 Labs: Abnormal Lab Results - Last 24 Hours (Table) 03/17/22 03/17/22 Range/Units 05:30 05:30 RBC 4.08 L (4.10-5.20) X 10*6/uL Hgb 11.1 L (12.0-15.0) g/dL Hct 35.1 L (37.2-46.3) % MCHC 31.6 L (32.0-37.0) g/dL Calcium 8.6 L (8.7-10.3) mg/dL Magnesium 1.3 L (1.5-2.4) mg/dL Microbiology - Last 24 Hours (Table) 03/16/22 07:29 Urine Culture - Preliminary Urine,Voided Assessment and Plan Assessment: Acute gastroenteritis, could be viral infection or reactive to uti acute urinary tract infection Dehydration secondary to above Diabetes mellitus Diabetic neuropathy History of GERD History of fibromyalgia Hearing difficulty History of hypertension History of her severe arthritis History of supraventricular tachycardia History of restless leg syndrome History of hiatal hernia History of Mnire's disease Glaucoma Plan: This is a pleasant 76 years old female who presents with signs symptoms of gastroenteritis Continue with liquid diet Pain management IV fluids start levaquin and f/u urine culture hold zetia Labs and medication were reviewed.. Continue same treatment. Continue with symptomatic treatment. Resume home medication. Monitor lytes and vitals. DVT and GI prophylaxis. Further recommendations depends on the clinical course of the patient DVT prophylaxis: Subcutaneous heparin GI Prophylaxis: Pepcid
[2022-03-18] MEDS: HYDROcodone/APAP 10-325MG 1 EACH TAB PO PRN ×2 (03:28→23:32)
[2022-03-18] MEDS: SODIUM CHLORIDE 0.9% 1,000 ML IV SCH ×2 (03:29→12:17)
[2022-03-18 07:01] LABS: Glucose,Whole Blood 93 mg/dL (70-110)
[2022-03-18] MEDS: HEPARIN SODIUM,PORCINE/PF 5,000 UNIT/0.5 ML SYRINGE SQ SCH ×2 (08:02→19:43)
[2022-03-18] MEDS: DESVENLAFAXINE SUCCINATE 50 MG TAB.ER.24H PO SCH (08:02)
[2022-03-18] MEDS: PANTOPRAZOLE 40 MG/10 ML VIAL IVP SCH (08:02)
[2022-03-18 11:21] LABS: African American GFR (CKD) 98.9 (60.0-200.0); Anion Gap 11.8 mmol/L (10.00-18.00); BUN/Creat Ratio 8.29 Ratio (12.00-20.00); Blood Urea Nitrogen 5.8 mg/dL (9.0-27.0); Calcium 8.7 mg/dL (8.7-10.3); Carbon Dioxide 22.2 mmol/L (20.0-27.5); Magnesium 1.6 mg/dL (1.5-2.4); Non-African American GFR(CKD) 85.4 (60.0-200.0); Potassium 3.7 mmol/L (3.5-5.5)
[2022-03-18 12:10] LABS: Glucose,Whole Blood 87 mg/dL (70-110)
[2022-03-18 17:17] LABS: Glucose,Whole Blood 95 mg/dL (70-110)
--- NOTE | 2022-03-18 19:28 | P.PN ---
Subjective This is a pleasant 76 years old female with past medical history of coronary artery disease, Diabetes Mellitus, Fibromyalgia, GERD/Reflux, Hearing Disorder / Deafness, Hyperlipidemia, Hypertension, Osteoarthritis , Supraventricular Tachycardia , RESTLESS LEG, Hiatal HERNIA, MENIERES, DIVERTICULITIS, GLAUCOMA right eye, NEUROPATHY bilateral legs, , gout, hx skin cancer. Patient presents because of continuous nausea vomiting and area for the last 4-5 days. Yesterday patient is then bouts of vomiting with no blood in 7 bouts of diarrhea with no blood. She has minimal abdominal discomfort in the lower abdomen, nonradiating currently abdominal pain has gone and directed to 0/10 per patient. She denies any dysuria or urgency or any other urinary symptoms. She is breathing quietly and denies chest pain however she has headache. Also she has postural dizziness, She denies weakness or numbness or blurred vision No smoking alcohol or illicit drugs. Vitas looks stable and patient is afebrile. Labs including CBC is unremarkable. Sodium is 142, potassium 3.0. Creatinine 0.9. Lactic acid elevated 2.2 liver enzymes not elevated. Urine analysis is suspicious for infection Coronavirus not detected 03/17/2022 pt is improving slowly and gradually , no significant dyspnea at rest , no chest pain she reports improvement in her diarrhea and vomiting since admission but not completely resovled urine culture is growing gram negative mo, she is started on levaquin because of her drug allergy to penicillin postural vitals are positive for hypotension but lost her iv line overnight and had to place midline for her 03/18/2022 Patient is awake and alert but slightly confused and delirious months likely secondary to her urinary tract infection. Patient was started yesterday on Levaquin however sensitivity showing E. coli is resistant to this antibiotic and also she is ALLERGIC to penicillin therefore we consulted infectious disease team who they are going to start the patient on ceftriaxone. Patient tolerates liquid diet and wants her diet to be advanced Objective - Vital Signs Vital signs: Vital Signs Temp 98.5 F 03/18/22 07:00 Pulse 71 03/18/22 07:00 Resp 18 03/18/22 07:00 BP 168/93 03/18/22 07:00 Pulse Ox 95 03/18/22 07:00 FiO2 Intake & Output 03/17/22 03/18/22 03/18/22 18:59 06:59 18:59 Intake Total 720 240 Balance 720 240 Intake: Oral 720 240 Other: # Voids 3 2 - Exam GENERAL: The patient is alert and oriented x3, not in any acute distress. Well developed, well nourished. HEENT: Pupils are round and equally reacting to light. EOMI. No scleral icterus. No conjunctival pallor. Normocephalic, atraumatic. No pharyngeal erythema. No thyromegaly. CARDIOVASCULAR: S1 and S2 present. No murmurs, rubs, or gallops. PULMONARY: Chest is clear to auscultation, no wheezing or crackles. ABDOMEN: Soft, nontender, nondistended, normoactive bowel sounds. No palpable organomegaly. MUSCULOSKELETAL: No joint swelling or deformity. EXTREMITIES: No cyanosis, clubbing, or pedal edema. NEUROLOGICAL: Gross neurological examination did not reveal any focal deficits. SKIN: No rashes. No petechiae - Labs CBC & Chem 7: 03/17/22 05:30 03/18/22 06:41 Labs: Abnormal Lab Results - Last 24 Hours (Table) 03/18/22 Range/Units 06:41 BUN 5.8 L (9.0-27.0) mg/dL BUN/Creatinine Ratio 8.29 L (12.00-20.00) Ratio Microbiology - Last 24 Hours (Table) 03/16/22 07:29 Urine Culture - Final Urine,Voided Escherichia coli Assessment and Plan Assessment: Acute gastroenteritis, could be viral infection or reactive to uti acute urinary tract infection secondary to E. coli Metabolic encephalopathy secondary to above, improving Dehydration secondary to above Diabetes mellitus Diabetic neuropathy History of GERD History of fibromyalgia Hearing difficulty History of hypertension History of her severe arthritis History of supraventricular tachycardia History of restless leg syndrome History of hiatal hernia History of Mnire's disease Glaucoma Plan: This is a pleasant 76 years old female who presents with signs symptoms of gastroenteritis Advance diet as tolerated Start ceftriaxone per ID team Pain management IV fluids hold zetia Labs and medication were reviewed.. Continue same treatment. Continue with symptomatic treatment. Resume home medication. Monitor lytes and vitals. DVT and GI prophylaxis. Further recommendations depends on the clinical course of the patient DVT prophylaxis: Subcutaneous heparin GI Prophylaxis: Pepcid
[2022-03-18] MEDS: GABAPENTIN 400 MG CAP PO SCH (19:43)
[2022-03-18 20:35] LABS: Glucose,Whole Blood 111 mg/dL (70-110)
[2022-03-19 03:21] VITALS: TEMP 98.4
[2022-03-19] MEDS: SODIUM CHLORIDE 0.9% 1,000 ML IV SCH (05:47)
[2022-03-19 06:50] LABS: Glucose,Whole Blood 97 mg/dL (70-110)
--- NOTE | 2022-03-19 07:01 | P.CONS ---
History of Present Illness - Reason for Consult Consult date: 03/18/22 Urinary tract infection Requesting physician: Henok E Sheet - Chief Complaint Nausea and vomiting times few days - History of Present Illness Patient is a 76-year-old female presenting to the hospital 2 days ago for evaluation of nausea vomiting and diarrhea in this patient symptom started 5 days prior to presentation to the hospital apparently patient did have a negative COVID test at home patient has been complaining of some crampy abdominal pain intensity 5-6 out of 10 and no radiation with associated nausea vomiting and diarrhea and decreased oral intake patient is complaining of feeling very weak with the symptom the patient has been evaluated on arrival to the ER the patient was afebrile and no fever have been recorded subsequently patient did have a normal white count with no left shift creatinine was normal electrolytes were normal liver enzymes are normal her lactic acid was elevated lipase was normal patient did have a negative COVID test did have a positive UA with large leukocyte esterase and 37 WBC patient was treated with the Levaquin however urine cultures came back positive with an E. coli that is resistant to the Levaquin patient did have a chest x-ray that was negative for acute cardiopulmonary process infectious disease was consulted for further management of antibiotic therapy Review of Systems Positive point has been mentioned in the HPI rest of the systems are negative Past Medical History Past Medical History: Cancer, Chest Pain / Angina, Diabetes Mellitus, Eye Disorder, Fibromyalgia, GERD/Reflux, Hearing Disorder / Deafness, Hyperlipidemia, Hypertension, Osteoarthritis (OA), Pneumonia, Supraventricular Tachycardia (SVT) Additional Past Medical History / Comment(s): Intestinal adhesions, RESTLESS LEG, Hiatal HERNIA, MENIERES, DIVERTICULITIS, GLAUCOMA right eye, NEUROPATHY bilateral legs, hx anemia, irregular heartbeat, DDD, difficulty hearing certain tones, gout, hx skin cancer. History of Any Multi-Drug Resistant Organisms: None Reported Past Surgical History: Appendectomy, Bladder Surgery, Bowel Resection, Cholecystectomy, Ear Surgery, Heart Catheterization, Hernia Repair, Hysterectomy, Joint Replacement, Orthopedic Surgery, Tonsillectomy, Tubal Ligation Additional Past Surgical History / Comment(s): Direct Microlaryngoscopy and removal left vocal cord mass. RIGHT BREAST Biopsy, diagnostic laparoscopy with lysis of adhesions, bilateral KNEE REPLACEMENTs, EYE surgery for cataracts bilaterally with lens implants, TUBE IN RIGHT EAR FOR MENIERES, LEFT THUMB SURGERY, hiatal hernia repair, abdominal ventral hernia repair, EGD with dilation X3, spur removal left heel. Past Anesthesia/Blood Transfusion Reactions: Previous Problems w/ Anesthesia, Motion Sickness, Postoperative Nausea & Vomiting (PONV) Additional Past Anesthesia/Blood Transfusion Reaction / Comm: STATES "DIFFICULT INTUBATION-JAW LOCKED UP AFTER A PREVIOUS INTUBATION". "Have to use child size tube so jaw doesn't lock up". 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 Difficult IV start. Past Psychological History: Depression Additional Psychological History / Comment(s): . Smoking Status: Former smoker Past Alcohol Use History: Rare Additional Past Alcohol Use History / Comment(s): Smoked X5 years off and on less then a ppd, quit 30 years ago. Past Drug Use History: None Reported - Past Family History Brother(s) Family Medical History: Cancer Mother Family Medical History: Cancer, CVA/TIA, Diabetes Mellitus, Deep Vein Thrombosis (DVT) Additional Family Medical History / Comment(s): STOMACH CANCER. Father Family Medical History: No Reported History Additional Family Medical History / Comment(s): COMMITTED SUICIDE. Medications and Allergies Home Medications Medication Instructions Recorded Confirmed Type Fenofibrate [Lofibra] 160 mg PO DAILY 11/17/18 03/16/22 History metFORMIN HCL [Glucophage] 500 mg PO HS 09/05/20 03/16/22 History Losartan/Hydrochlorothiazide 1 tab PO DAILY 09/18/20 03/16/22 History [Hyzaar 100-25 Tablet] Omeprazole 40 mg PO DAILY 10/14/20 03/16/22 History HYDROcodone/APAP 7.5-325MG [[place] 1 tab PO Q6H PRN 05/02/21 03/16/22 History 7.5-325] Metoprolol Succinate (ER) [Toprol 50 mg PO BID 05/02/21 03/16/22 History Xl] Desvenlafaxine [Pristiq ER] 100 mg PO DAILY 03/16/22 03/16/22 History Ezetimibe [Zetia] 10 mg PO HS 03/16/22 03/16/22 History Gabapentin [Neurontin] 400 mg PO HS 03/16/22 03/16/22 History Naproxen [Naprosyn] 500 mg PO BID PRN 03/16/22 03/16/22 History Semaglutide [Ozempic] 0.5 mg SQ FR 03/16/22 03/16/22 History rOPINIRole HCL [Requip] 0.5 mg PO HS 03/16/22 03/16/22 History Allergies Allergy/AdvReac Type Severity Reaction Status Date / Time adhesive Allergy Rash/Hives Verified 03/16/22 13:34 Penicillins Allergy Rash/Hives Verified 03/16/22 13:34 Uianpys-BXC-NyY Reductase Allergy Rash/Hives Verified 03/16/22 13:34 Inhibitor [Uotbabq-Pgf-Poy Reductase Inhibitor] aspirin AdvReac STOMACH Verified 03/16/22 13:34 UPSET/HEARTBURN Physical Exam Vitals: Vital Signs Temp Pulse Resp BP BP Pulse Ox 03/18/22 07:00 98.5 F 71 18 168/93 95 03/18/22 02:00 97.9 F 73 20 116/83 97 03/17/22 19:57 97.7 F 71 18 157/82 96 03/17/22 14:17 97.5 F L 72 18 135/76 95 Intake and Output 03/17/22 03/18/22 03/18/22 22:59 06:59 14:59 Intake Total 240 Balance 240 Intake: Oral 240 Other: # Voids 2 2 GENERAL DESCRIPTION: Elderly female lying in bed, no distress. No tachypnea or accessory muscle of respiration use. HEENT: Shows Pallor , no scleral icterus. Oral mucous membrane is dry. No pharyngeal erythema or thrush NECK: Trachea central, no thyromegaly. LUNGS: Unlabored breathing. Clear to auscultation anteriorly. No wheeze or crackle. HEART: S1, S2, regular rate and rhythm. No loud murmur ABDOMEN: Soft, no tenderness , guarding or rigidity, no organomegaly EXTREMITIES: No edema of feet. SKIN: No rash, no masses palpable. NEUROLOGICAL: The patient is awake, alert, oriented x3, mood and affect normal. Results CBC & Chem 7: 03/17/22 05:30 03/18/22 06:41 Labs: Microbiology - Last 24 Hours (Table) 03/16/22 07:29 Urine Culture - Final Urine,Voided Escherichia coli Assessment and Plan (1) UTI (urinary tract infection) Current Visit: No Status: Acute Code(s): N39.0 - URINARY TRACT INFECTION, SITE NOT SPECIFIED SNOMED Code(s): 71838285 Plan: 1patient presented to hospital with acute nausea vomiting and diarrhea of 5 days duration in this patient with no fever elevated white count question of possible viral gastroenteritis versus related to possible UTI as patient did have a positive UA unfortunately stool studies was not done patient abdominal soft on clinical examination and no evidence of any tenderness the patient seem to have shown improvement in her symptomatology. 2patient with a penicillin allergy no history of anaphylaxis. 3discontinue Levaquin and start the patient on Rocephin 1 g daily. We will follow on clinical condition and cultures to further adjust medication if needed Thank you for this consultation will follow this patient along with you Time with Patient: Greater than 30
[2022-03-19 07:13] VITALS: BP 167/88; PULSE 60; RESP 18
[2022-03-19] MEDS: DESVENLAFAXINE SUCCINATE 50 MG TAB.ER.24H PO SCH (07:28)
[2022-03-19] MEDS: HEPARIN SODIUM,PORCINE/PF 5,000 UNIT/0.5 ML SYRINGE SQ SCH (07:29)
[2022-03-19] MEDS: PANTOPRAZOLE 40 MG/10 ML VIAL IVP SCH (07:29)
[2022-03-19 11:36] LABS: Glucose,Whole Blood 85 mg/dL (70-110)
--- NOTE | 2022-03-19 13:53 | P.PN ---
Subjective Progress Note Date: 03/19/22 Principal diagnosis: E. coli urinary tract infection Patient is 76 year old female presenting the hospital with acute nausea vomiting diarrhea patient did have a positive UA. Has been finalized with E. coli that was resistant to Levaquin patient did have penicillin ALLERGY however has tolerated Rocephin without any problem. On today's evaluation that is 03/19/2022, the patient denies having any fever or chills, the patient is feeling better, the patient denies chest pain shortness of cough no further nausea vomiting abdominal pain no diarrhea Objective - Vital Signs Vital signs: Vital Signs Temp 98.4 F 03/19/22 07:00 Pulse 60 03/19/22 08:00 Resp 18 03/19/22 08:00 BP 167/88 03/19/22 07:00 Pulse Ox 98 03/19/22 07:00 FiO2 Intake & Output 03/18/22 03/19/22 03/19/22 18:59 06:59 18:59 Intake Total 1710 Balance 1710 Intake: Intake, IV Titration 1090 Amount Sodium Chloride 0.9% 1, 1040 000 ml @ 50 mls/hr IV . Q20H [facility] Rx#:[id number] cefTRIAXone 1 gm In 50 Sodium Chloride 0.9% 50 ml @ 100 mls/hr IVPB Q24HR [facility] Rx#:[id number] Oral 620 Other: Voiding Method Toilet Toilet # Voids 2 - Exam GENERAL DESCRIPTION: An elderly female lying in bed in no distress RESPIRATORY SYSTEM: Unlabored breathing , decreased breath sounds at bases HEART: S1 S2 regular rate and rhythm , ABDOMEN: Soft , no tenderness EXTREMITIES: No edema feet - Labs CBC & Chem 7: 03/17/22 05:30 03/18/22 06:41 Labs: Abnormal Lab Results - Last 24 Hours (Table) 03/18/22 Range/Units 20:33 POC Glucose (mg/dL) 111 H (70-110) mg/dL Microbiology - Last 24 Hours (Table) 03/16/22 07:29 Urine Culture - Final Urine,Voided Escherichia coli Assessment and Plan (1) UTI (urinary tract infection) Status: Acute Code(s): N39.0 - URINARY TRACT INFECTION, SITE NOT SPECIFIED SNOMED Code(s): 98148448 Plan: 1patient presented to hospital with acute nausea vomiting and diarrhea of 5 days duration in this patient with no fever elevated white count question of possible viral gastroenteritis versus related to possible UTI as patient did have a positive UA unfortunately stool studies was not done patient abdominal soft on clinical examination and no evidence of any tenderness the patient seem to have shown improvement in her symptomatology. 2patient with a penicillin allergy no history of anaphylaxis. 3 patient has tolerated Rocephin without any problem and has clinically improved to finish therapy with a short course of oral Ceftin discussed with admitting physician working on discharge Time with Patient: Less than 30
--- NOTE | 2022-03-20 00:37 | P.DS ---
Providers Date of admission: 03/18/22 13:11 Attending physician: Henok Pulido MD Consults: 03/18/22 10:53 Consult Physician Routine Consulting Provider: Celeste Gant Consult Reason/Comments: uti Do you want consulting provider notified?: Yes Primary care physician: Damir Hernandez [facility] Hospital Course: Diagnoses: Acute gastroenteritis, could be viral infection or reactive to uti, improved and patient tolerates that well acute urinary tract infection secondary to E. coli, improved Metabolic encephalopathy secondary to above, improving and patient back to baseline Dehydration secondary to above Diabetes mellitus Diabetic neuropathy History of GERD History of fibromyalgia Hearing difficulty History of hypertension History of her severe arthritis History of supraventricular tachycardia History of restless leg syndrome History of hiatal hernia History of Mnire's disease Glaucoma Hospital course: This is a pleasant 76 years old female with past medical history of coronary artery disease, Diabetes Mellitus, Fibromyalgia, GERD/Reflux, Hearing Disorder / Deafness, Hyperlipidemia, Hypertension, Osteoarthritis , Supraventricular Tachycardia , RESTLESS LEG, Hiatal HERNIA, MENIERES, DIVERTICULITIS, GLAUCOMA right eye, NEUROPATHY bilateral legs, , gout, hx skin cancer. Patient presents because of continuous nausea vomiting and area for the last 4-5 days. Yesterday patient is then bouts of vomiting with no blood in 7 bouts of diarrhea with no blood. She has minimal abdominal discomfort in the lower abdomen, patient was treated with IV fluids. Also she received antibiotics in the form of ceftriaxone for UTI. Urine culture was growing sensitive E. coli to ceftriaxone but resistant to Levaquin. Patient showed interval improvement and her symptoms improved. On the day of discharge her diarrhea and vomiting were resolved and patient tolerates diet well. No abdominal pain is resolved. No dysuria or urgency or change in frequency. No other symptoms like chest pain or dyspnea. No headache. Mentation is back to normal. Patient was cleared for discharge by infectious disease team on Ceftin Problems and management plan were discussed with the patient and he verbalized understanding and acceptance Patient was found stable and can be discharged home however he needs follow-up as an outpatient. Patient was instructed to follow up with PCP Dr. Hernandez within one week and patient agrees and she told me that she already has an appointment with her on 03/28 that she intends to keep Physical exam Gen: patient is a AAOx3, no distress CVS: S1-S2, RRR, no murmur Lungs: B/L CTA, no wheezing Abdomen: soft, no distention, no tenderness, positive bowel sounds Extremity: no leg edema or induration Time spent more than 35 minutes Patient Condition at Discharge: Fair Plan - Discharge Summary Discharge Rx Participant: No New Discharge Prescriptions: New cefUROXime axetiL [Cefuroxime] 500 mg PO BID 5 Days #10 tab Continue Fenofibrate [Lofibra] 160 mg PO DAILY metFORMIN HCL [Glucophage] 500 mg PO HS Losartan/Hydrochlorothiazide [Hyzaar 100-25 Tablet] 1 tab PO DAILY Omeprazole 40 mg PO DAILY Metoprolol Succinate (ER) [Toprol XL] 50 mg PO BID rOPINIRole HCL [Requip] 0.5 mg PO HS Gabapentin [Neurontin] 400 mg PO HS Desvenlafaxine [Pristiq ER] 100 mg PO DAILY HYDROcodone/APAP 7.5-325MG [[place] 7.5-325] 1 tab PO Q6H PRN PRN Reason: Pain Ezetimibe [Zetia] 10 mg PO HS Semaglutide [Ozempic] 0.5 mg SQ FR Discontinued Naproxen [Naprosyn] 500 mg PO BID PRN PRN Reason: Pain Discharge Medication List Fenofibrate [Lofibra] 160 mg PO DAILY 11/17/18 [History] metFORMIN HCL [Glucophage] 500 mg PO HS 09/05/20 [History] Losartan/Hydrochlorothiazide [Hyzaar 100-25 Tablet] 1 tab PO DAILY 09/18/20 [History] Omeprazole 40 mg PO DAILY 10/14/20 [History] HYDROcodone/APAP 7.5-325MG [[place] 7.5-325] 1 tab PO Q6H PRN 05/02/21 [History] Metoprolol Succinate (ER) [Toprol XL] 50 mg PO BID 05/02/21 [History] Desvenlafaxine [Pristiq ER] 100 mg PO DAILY 03/16/22 [History] Ezetimibe [Zetia] 10 mg PO HS 03/16/22 [History] Gabapentin [Neurontin] 400 mg PO HS 03/16/22 [History] Semaglutide [Ozempic] 0.5 mg SQ FR 03/16/22 [History] rOPINIRole HCL [Requip] 0.5 mg PO HS 03/16/22 [History] cefUROXime axetiL [Cefuroxime] 500 mg PO BID 5 Days #10 tab 03/19/22 [Rx] Follow up Appointment(s)/Referral(s): Damir Hernandez DO [Primary Care Provider] - 03/28/22 8:00 am (follow up with your appointment on 03/28 as you informed the medical team, otherwise call to make appointment in one week please) Patient Instructions/Handouts: Dehydration (DC), Urinary Tract Infection in Women (DC), Acute Nausea and Vomiting (GEN) Activity/Diet/Wound Care/Special Instructions: heart healthy diet activity is restricted till you see your doctor Discharge Disposition: HOME SELF-CARE
== END 2022-03-19 13:26 | disposition home or self-care (01) ==
LOC: EC 07:12 → 6NMEDSUR 13:17 → INTOOBSV 03-18 13:11 → OBSVTOIN 03-18 13:11 → UNDODISIN 03-19 13:26
PROVIDERS: ADMIT Internal Medicine; ATTEND Internal Medicine
PROC: 05HC33Z Insertion of Infusion Device into Left Basilic Vein, Percutaneous Approach (ICD-10-PCS; principal; 2022-03-17 12:55)
DX: K52.9 Noninfective gastroenteritis and colitis, unspecified (principal); G93.41 Metabolic encephalopathy; E86.0 Dehydration; E87.6 Hypokalemia; N39.0 Urinary tract infection, site not specified; B96.20 Unspecified Escherichia coli [E. coli] as the cause of diseases classified elsewhere; E11.42 Type 2 diabetes mellitus with diabetic polyneuropathy; I47.1 Supraventricular tachycardia; Z16.23 Resistance to quinolones and fluoroquinolones; I10 Essential (primary) hypertension; G25.81 Restless legs syndrome; F32.A Depression, unspecified; I95.9 Hypotension, unspecified; E78.5 Hyperlipidemia, unspecified; K21.9 Gastro-esophageal reflux disease without esophagitis; M79.7 Fibromyalgia; H81.09 Meniere's disease, unspecified ear; M10.9 Gout, unspecified; M19.90 Unspecified osteoarthritis, unspecified site; K44.9 Diaphragmatic hernia without obstruction or gangrene; H40.9 Unspecified glaucoma; H91.90 Unspecified hearing loss, unspecified ear; I25.10 Atherosclerotic heart disease of native coronary artery without angina pectoris; Z20.822 Contact with and (suspected) exposure to COVID-19; Z79.82 Long term (current) use of aspirin; Z79.84 Long term (current) use of oral hypoglycemic drugs; Z79.899 Other long term (current) drug therapy; Z88.0 Allergy status to penicillin; Z88.6 Allergy status to analgesic agent; Z88.8 Allergy status to other drugs, medicaments and biological substances; Z91.048 Other nonmedicinal substance allergy status; Z98.51 Tubal ligation status; Z96.653 Presence of artificial knee joint, bilateral; Z96.1 Presence of intraocular lens; Z98.41 Cataract extraction status, right eye; Z98.42 Cataract extraction status, left eye; Z85.828 Personal history of other malignant neoplasm of skin; Z87.01 Personal history of pneumonia (recurrent); Z87.19 Personal history of other diseases of the digestive system; Z87.39 Personal history of other diseases of the musculoskeletal system and connective tissue; Z90.710 Acquired absence of both cervix and uterus; Z90.49 Acquired absence of other specified parts of digestive tract; Z90.89 Acquired absence of other organs; Z98.61 Coronary angioplasty status; Z87.891 Personal history of nicotine dependence; Z98.890 Other specified postprocedural states; Z83.3 Family history of diabetes mellitus; Z82.3 Family history of stroke; Z80.0 Family history of malignant neoplasm of digestive organs; Z82.49 Family history of ischemic heart disease and other diseases of the circulatory system; Z81.8 Family history of other mental and behavioral disorders
CPT/HCPCS: 96376 ×4; 96361 ×4; 96365; 96366 ×2; 96367 ×2; 96372 ×4; 96375 ×3; 99285; 36415; 94640; 94760; 36410; 76937; 80053; 80048 ×2; 83605; 83690; 83735 ×2; 85025 ×2; 81001; 87086; 87077; 87186; 87635; 71046; 74018; 70450; G0378 ×4; J3480; J2405; J1956; J0696 ×2; J1170 ×3; J3475; C9113 ×3; J1644 ×4; 96374

== ENCOUNTER 2022-03-24 13:49 | Emergency (ER) | payer MEDICARE ==
[2022-03-24 15:04] VITALS: RESP 18
[2022-03-24 15:26] LABS: Appearance,Urine Clear (Clear); Bacteria,Urine Rare /hpf; Bilirubin,Urine Negative (Negative); Blood,Urine Negative (Negative); Color,Urine Yellow; Glucose,Urine (UA) Negative (Negative); Ketones,Urine Negative (Negative); Leukocyte Esterase,Urine Moderate (Negative); Mucus,Urine Occasional /hpf; Nitrite,Urine Negative (Negative); PH, Urine 5.5 (5.0-8.0); Protein,Urine 1+ (Negative); RBC,Urine 1 /hpf (0-5); Specific Gravity,Urine 1.027 (1.001-1.035); Squamous Epithelial Cell,Urine 1 /hpf (0-4); Urobilinogen,Urine <2.0 mg/dL (<2.0); WBC,Urine 8 /hpf (0-5)
[2022-03-24 15:43] LABS: Basophils % (A) 1 %; Eosinophils # (A) 0.3 k/uL (0-0.7); Eosinophils % (A) 4 %; HCT 38.8 % (34.0-46.0); Lymphocytes # (A) 1.7 k/uL (1.0-4.8); Lymphocytes % (A) 26 %; MCHC 33.6 g/dL (31.0-37.0); MCV 86.4 fL (80.0-100.0); Mean Platelet Volume 8.3; Monocytes # (A) 0.3 k/uL (0-1.0); Monocytes % (A) 5 %; Neutrophils # (A) 4.1 k/uL (1.3-7.7); Neutrophils % (A) 62 %; Platelet Count 216 k/uL (150-450); RBC 4.49 m/uL (3.80-5.40); RDW 14.8 % (11.5-15.5); WBC 6.6 k/uL (3.8-10.6)
[2022-03-24 15:52] LABS: Albumin 4.6 g/dL (3.5-5.0); Potassium 3.9 mmol/L (3.5-5.1); Total Bilirubin 0.4 mg/dL (0.2-1.3); Total Protein 7.3 g/dL (6.3-8.2)
--- NOTE | 2022-03-24 16:01 | XR ---
EXAMINATION TYPE: XR KUB DATE OF EXAM: 03/24/2022 Comparison: 03/16/2022 Clinical History: 77-year-old female abdominal pain Findings: Multiple coils from prior measurement here. Surgical clips in the left pelvis. Additional surgical cl ips below the GE junction. Lung bases are clear. No evidence for free intraperitoneal air. No dilated small bowel or air-fluid levels. Only mild scattered stool. Impression: Extensive coils from prior mesh repair. Surgical clips below the GE junction and also in the left eduardo e of the pelvis. No evidence for free air or bowel obstruction. Only mild scattered stool.
[2022-03-24] MEDS ORDERED: FAMOTIDINE 20 MG/2 ML VIAL IV STA (18:35)
[2022-03-24] MEDS ORDERED: SODIUM CHLORIDE 0.9% 1,000 ML IV STA (18:35)
[2022-03-24] MEDS ORDERED: ONDANSETRON 4 MG/2 ML VIAL IVP STA (18:35)
[2022-03-24] MEDS ORDERED: diphenhydrAMINE 50 MG/ML 1 ML VIAL IVP STA (18:35)
--- NOTE | 2022-03-24 20:56 | ED ---
General Adult HPI - General Chief complaint: Urogenital Stated complaint: NVD Time Seen by Provider: 03/24/22 18:25 Source: patient, RN notes reviewed, old records reviewed Mode of arrival: ambulatory Limitations: no limitations - History of Present Illness Initial comments: Patient is a 77-year-old female with past medical history remarkable for diabet es, cancer, GERD, hypertension, fibromyalgia, diverticulosis who recently was discharged from the hospital for a UTI and just completed antibiotics presented to the emergency department with return of abdominal discomfort. States this happened on her prior admission. Was having some lower abdominal discomfort as well as some intermittent nausea and occasional vomiting. Is concerned that her urinary tract infection is returning. He did her antibiotic yesterday. States that the abdominal pain is primarily in the left lower quadrant. Denies any cough, chest pain, shortness of breath. Denies any fevers. Denies any dysuria or hematuria. His no other acute point at this time. Presents for further evaluation. I evaluated her when she was placed in a room. Workup was started in triage. - Related Data Home Medications Medication Instructions Recorded Confirmed Fenofibrate [Lofibra] 160 mg PO DAILY 11/17/18 03/16/22 metFORMIN HCL [Glucophage] 500 mg PO HS 09/05/20 03/16/22 Losartan/Hydrochlorothiazide 1 tab PO DAILY 09/18/20 03/16/22 [Hyzaar 100-25 Tablet] Omeprazole 40 mg PO DAILY 10/14/20 03/16/22 HYDROcodone/APAP 7.5-325MG [[place] 1 tab PO Q6H PRN 05/02/21 03/16/22 7.5-325] Metoprolol Succinate (ER) [Toprol 50 mg PO BID 05/02/21 03/16/22 XL] Desvenlafaxine [Pristiq ER] 100 mg PO DAILY 03/16/22 03/16/22 Ezetimibe [Zetia] 10 mg PO HS 03/16/22 03/16/22 Gabapentin [Neurontin] 400 mg PO HS 03/16/22 03/16/22 Semaglutide [Ozempic] 0.5 mg SQ FR 03/16/22 03/16/22 rOPINIRole HCL [Requip] 0.5 mg PO HS 03/16/22 03/16/22 Previous Rx's Medication Instructions Recorded cefUROXime axetiL [Cefuroxime] 500 mg PO BID 5 Days #10 tab 03/19/22 Ondansetron Odt [Zofran Odt] 4 mg PO Q8HR PRN 2 Days #6 tab 03/24/22 cefUROXime axetiL [Ceftin] 500 mg PO BID 4 Days #8 tab 03/24/22 Allergies Allergy/AdvReac Type Severity Reaction Status Date / Time adhesive Allergy Rash/Hives Verified 03/24/22 15:04 Penicillins Allergy Rash/Hives Verified 03/24/22 15:04 Twndvod-LMV-YqY Reductase Allergy Rash/Hives Verified 03/24/22 15:04 Inhibitor [Znsvmms-Vue-Nuk Reductase Inhibitor] aspirin AdvReac STOMACH Verified 03/24/22 15:04 UPSET/HEARTBURN Review of Systems ROS Statement: Those systems with pertinent positive or pertinent negative responses have been documented in the HPI. Review of Systems: CONST: Denies fever EYES: Denies blurry vision ENT: Denies nasal congestion C/V: Denies Chest pain RESP: Denies shortness of breath GI: Endorses abdominal pain : Denies dysuria SKIN: Denies rash. MSK: Denies joint pain. NEURO: Denies headache ROS Other: All systems not noted in ROS Statement are negative. Past Medical History Past Medical History: Cancer, Chest Pain / Angina, Diabetes Mellitus, Eye Disorder, Fibromyalgia, GERD/Reflux, Hearing Disorder / Deafness, Hyperlipidemia, Hypertension, Osteoarthritis (OA), Pneumonia, Supraventricular Tachycardia (SVT) Additional Past Medical History / Comment(s): Intestinal adhesions, RESTLESS LEG, Hiatal HERNIA, MENIERES, DIVERTICULITIS, GLAUCOMA right eye, NEUROPATHY bilateral legs, hx anemia, irregular heartbeat, DDD, difficulty hearing certain tones, gout, hx skin cancer. History of Any Multi-Drug Resistant Organisms: None Reported Past Surgical History: Appendectomy, Bladder Surgery, Bowel Resection, Cholecystectomy, Ear Surgery, Heart Catheterization, Hernia Repair, Hysterectomy, Joint Replacement, Orthopedic Surgery, Tonsillectomy, Tubal Ligation Additional Past Surgical History / Comment(s): Direct Microlaryngoscopy and removal left vocal cord mass. RIGHT BREAST Biopsy, diagnostic laparoscopy with lysis of adhesions, bilateral KNEE REPLACEMENTs, EYE surgery for cataracts bilaterally with lens implants, TUBE IN RIGHT EAR FOR MENIERES, LEFT THUMB SURGERY, hiatal hernia repair, abdominal ventral hernia repair, EGD with dilat ion X3, spur removal left heel. Past Anesthesia/Blood Transfusion Reactions: Previous Problems w/ Anesthesia, Motion Sickness, Postoperative Nausea & Vomiting (PONV) Additional Past Anesthesia/Blood Transfusion Reaction / Comment(s): STATES "DIFFICULT INTUBATION-JAW LOCKED UP AFTER A PREVIOUS INTUBATION". "Have to use child size tube so jaw doesn't lock up". 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 Difficult IV start. Past Psychological History: Depression Smoking Status: Former smoker Past Alcohol Use History: Rare Past Drug Use History: None Reported - Past Family History Brother(s) Family Medical History: Cancer Mother Family Medical History: Cancer, CVA/TIA, Diabetes Mellitus, Deep Vein Thrombosis (DVT) Additional Family Medical History / Comment(s): STOMACH CANCER. Father Family Medical History: No Reported History Additional Family Medical History / Comment(s): COMMITTED SUICIDE. General Exam - General Exam Comments Initial Comments: General: Appears in no acute distress. HEAD: Normal with no signs of head trauma. EYES: PERRLA, EOMI, conjunctiva normal, no discharge. ENT: Hearing grossly intact, normal oropharynx. RESPIRATORY: Clear breath sounds bilaterally. No wheezes, rales, or rhonchi. C/V: Regular rate and rhythm. S1 and S2 auscultated, no edema, peripheral pulses 2+ and intact throughout ABD: Left lower quadrant abdominal pain. Abdomen soft, nondistended otherwise. No guarding. No peritoneal signs. No rebound tenderness. EXT: Normal range of motion, no obvious deformity SKIN: No rashes or lesions observed on exposed skin. NEURO: Alert and oriented 4. Limitations: no limitations Course Vital Signs 03/24/22 15:02 Pulse Rate 86 Respiratory 18 Rate Blood Pressure 132/80 O2 Sat by Pulse 98 Oximetry Medical Decision Making - Medical Decision Making Based on the patient's presentation and physical exam, I'm concerned for possible intra-abdominal pathology for her current symptoms. Laboratory studies were obtained with the patient was in triage, and are remarkable for a mild hypernatremia of 146 and hyperkalemia following which is likely secondary to dehydration from nausea and vomiting. Lactic acid is within normal limits. Urinalysis is remarkable for a moderate amount of leukocyte esterase and 8 WBCs. Abdominal x-ray obtained while the patient was in triage. Chronic findings. No acute findings. Based on where the patient is having her current pain, or left lower quadrant and her history of known diverticulosis, I did recommend that we obtain a CT and pelvis. She was in agreement this plan. Will be symptomatically treated as well. Vital signs are within normal limits. There was a delay, is that patient was a difficult IV start. I was able to successfully completed an ultrasound IV. CT imaging reveals no acute intra-abdominal process. On reevaluation come patient is feeling improved. It does show chronic hernias. There is also an indeterminant right renal cyst. Discussed the findings with the patient. Recommended follow-up. I believe it is safer to be discharged home otherwise. She was in agreement this plan. We will restart her on her antibiotic for an additional 2 days due to continued symptoms. She was in agreement this plan. Patient is tolerating oral intake.She'll be given a dose of Rocephin prior to discharge. I will provide the patient with a prescription for ODT Zofran, cefuroxime. I instructed the patient to follow up with their PCP in the next 1-3 days. I explained that the patient should return to the emergency department if they experience any worsening symptoms. Strict return precautions were discussed with the patient. The patient expressed understanding of these instructions. I answered all questions that the patient had. The patient was discharged home in good condition with their prescriptions and follow up information. - Lab Data Result diagrams: 03/24/22 15:25 03/24/22 15:25 Lab Results 03/24/22 03/24/22 03/24/22 Range/Units 15:20 15:25 15:25 WBC 6.6 (3.8-10.6) k/uL RBC 4.49 (3.80-5.40) m/uL Hgb 13.0 (11.4-16.0) gm/dL Hct 38.8 (34.0-46.0) % MCV 86.4 (80.0-100.0) fL MCH 29.0 (25.0-35.0) pg MCHC 33.6 (31.0-37.0) g/dL RDW 14.8 (11.5-15.5) % Plt Count 216 (150-450) k/uL MPV 8.3 Neutrophils % 62 % Lymphocytes % 26 % Monocytes % 5 % Eosinophils % 4 % Basophils % 1 % Neutrophils # 4.1 (1.3-7.7) k/uL Lymphocytes # 1.7 (1.0-4.8) k/uL Monocytes # 0.3 (0-1.0) k/uL Eosinophils # 0.3 (0-0.7) k/uL Basophils # 0.0 (0-0.2) k/uL Sodium 146 H (137-145) mmol/L Potassium 3.9 (3.5-5.1) mmol/L Chloride 108 H (98-107) mmol/L Carbon Dioxide 29 (22-30) mmol/L Anion Gap 9 mmol/L BUN 30 H (7-17) mg/dL Creatinine 0.82 (0.52-1.04) mg/dL Est GFR (CKD-EPI)AfAm 81 (>60 ml/min/1.73 sqM) Est GFR (CKD-EPI)NonAf 70 (>60 ml/min/1.73 sqM) Glucose 98 (74-99) mg/dL Plasma Lactic Acid Maicol (0.7-2.0) mmol/L Calcium 10.0 (8.4-10.2) mg/dL Total Bilirubin 0.4 (0.2-1.3) mg/dL AST 32 (14-36) U/L ALT 27 (4-34) U/L Alkaline Phosphatase 67 (38-126) U/L Total Protein 7.3 (6.3-8.2) g/dL Albumin 4.6 (3.5-5.0) g/dL Amylase 76 (30-110) U/L Lipase 165 (23-300) U/L Urine Color Yellow Urine Appearance Clear (Clear) Urine pH 5.5 (5.0-8.0) Ur Specific [place] 1.027 (1.001-1.035) Urine Protein 1+ H (Negative) Urine Glucose (UA) Negative (Negative) Urine Ketones Negative (Negative) Urine Blood Negative (Negative) Urine Nitrite Negative (Negative) Urine Bilirubin Negative (Negative) Urine Urobilinogen <2.0 (<2.0) mg/dL Ur Leukocyte Esterase Moderate H (Negative) Urine RBC 1 (0-5) /hpf Urine WBC 8 H (0-5) /hpf Ur Squamous Epith Cells 1 (0-4) /hpf Urine Bacteria Rare H (None) /hpf Urine Mucus Occasional H (None) /hpf 03/24/22 Range/Units 15:25 WBC (3.8-10.6) k/uL RBC (3.80-5.40) m/uL Hgb (11.4-16.0) gm/dL Hct (34.0-46.0) % MCV (80.0-100.0) fL MCH (25.0-35.0) pg MCHC (31.0-37.0) g/dL RDW (11.5-15.5) % Plt Count (150-450) k/uL MPV Neutrophils % % Lymphocytes % % Monocytes % % Eosinophils % % Basophils % % Neutrophils # (1.3-7.7) k/uL Lymphocytes # (1.0-4.8) k/uL Monocytes # (0-1.0) k/uL Eosinophils # (0-0.7) k/uL Basophils # (0-0.2) k/uL Sodium (137-145) mmol/L Potassium (3.5-5.1) mmol/L Chloride (98-107) mmol/L Carbon Dioxide (22-30) mmol/L Anion Gap mmol/L BUN (7-17) mg/dL Creatinine (0.52-1.04) mg/dL Est GFR (CKD-EPI)AfAm (>60 ml/min/1.73 sqM) Est GFR (CKD-EPI)NonAf (>60 ml/min/1.73 sqM) Glucose (74-99) mg/dL Plasma Lactic Acid [place] 1.3 (0.7-2.0) mmol/L Calcium (8.4-10.2) mg/dL Total Bilirubin (0.2-1.3) mg/dL AST (14-36) U/L ALT (4-34) U/L Alkaline Phosphatase (38-126) U/L Total Protein (6.3-8.2) g/dL Albumin (3.5-5.0) g/dL Amylase (30-110) U/L Lipase (23-300) U/L Urine Color Urine Appearance (Clear) Urine pH (5.0-8.0) Ur Specific [place] (1.001-1.035) Urine Protein (Negative) Urine Glucose (UA) (Negative) Urine Ketones (Negative) Urine Blood (Negative) Urine Nitrite (Negative) Urine Bilirubin (Negative) Urine Urobilinogen (<2.0) mg/dL Ur Leukocyte Esterase (Negative) Urine RBC (0-5) /hpf Urine WBC (0-5) /hpf Ur Squamous Epith Cells (0-4) /hpf Urine Bacteria (None) /hpf Urine Mucus (None) /hpf Disposition Clinical Impression: UTI (urinary tract infection), Nausea & vomiting Disposition: HOME SELF-CARE Condition: Good Instructions (If sedation given, give patient instructions): Urinary Tract Infection in Women (ED) Prescriptions: cefUROXime axetiL [Ceftin] 500 mg PO BID 4 Days #8 tab Ondansetron Odt [Zofran Odt] 4 mg PO Q8HR PRN 2 Days #6 tab PRN Reason: Nausea Is patient prescribed a controlled substance at d/c from ED?: No Referrals: Damir Hernandez DO [Primary Care Provider] - 1-2 days Time of Disposition: 21:05
--- NOTE | 2022-03-24 21:03 | CT ---
EXAMINATION TYPE: CT abdomen pelvis w con DATE OF EXAM: 03/24/2022 COMPARISON: None available HISTORY: N/V/D. abdominal pain. CT DLP: 1086.2 mGycm Automated exposure control for dose reduction was used. TECHNIQUE: Helical acquisition of images was performed from the lung bases through the pelvis. CONTRAST: Performed without Oral Contrast and with IV Contrast, patient injected with 100 mL of Isovue 300. FINDINGS: LUNG BASES: Minimal bibasilar opacities, probably atelectasis. LIVER/GB: No significant abnormality is appreciated. Hepatic steatosis. PANCREAS: No significant abnormality is seen. SPLEEN: No significant abnormality is seen. ADRENALS: No significant abnormality is seen. KIDNEYS: No hydronephrosis or nephrolithiasis. 1.3 cm mildly hyperattenuating right renal cyst in low er pole. Also sub-5 mm benign-appearing left renal cyst in the upper pole. FREE AIR: No free air is visualized. RETROPERITONEAL ADENOPATHY: None visualized REPRODUCTIVE ORGANS: No significant abnormality is seen URINARY BLADDER: No significant abnormality is seen. PELVIC ADENOPATHY: None visualized. OSSEOUS STRUCTURES: No significant abnormality is seen. BOWEL: No acute bowel obstruction. Small bowel containing ventral hernia. Colonic diverticulosis wit hout acute diverticulitis. Also small hiatal hernia. OTHER: Prior ventral hernia repair. IMPRESSION: NO ACUTE ABNORMALITY Small bowel containing ventral and hiatal hernias without bowel obstruction. Prior ventral hernia rep air noted. Indeterminate 1.3 cm right renal cyst. Attention on follow-up.
[2022-03-24] MEDS ORDERED: cefTRIAXone IN SWFI 1,000 MG/10 ML SYRINGE IVP STA (21:19)
[2022-03-24 21:43] VITALS: BP 163/78; PULSE 87
== END 2022-03-24 21:43 | disposition home or self-care (01) ==
LOC: EC 13:49
DX: N39.0 Urinary tract infection, site not specified (principal); E87.0 Hyperosmolality and hypernatremia; E87.5 Hyperkalemia; M19.90 Unspecified osteoarthritis, unspecified site; G25.81 Restless legs syndrome; K21.9 Gastro-esophageal reflux disease without esophagitis; I10 Essential (primary) hypertension; E11.39 Type 2 diabetes mellitus with other diabetic ophthalmic complication; Z87.891 Personal history of nicotine dependence; Z90.49 Acquired absence of other specified parts of digestive tract; Z91.09 Other allergy status, other than to drugs and biological substances; Z88.0 Allergy status to penicillin; Z88.8 Allergy status to other drugs, medicaments and biological substances; Z88.6 Allergy status to analgesic agent; Z79.899 Other long term (current) drug therapy; Z79.84 Long term (current) use of oral hypoglycemic drugs
CPT/HCPCS: 36415; 80053; 82150; 83605; 83690; 85025; 81001; 74018; 74177; 99284; 96374; 96375; 96361; J1200; J2405; J0696; Q9967

== ENCOUNTER → 2022-03-28 | Outpatient (CLI) | payer MEDICARE ==
[2022-03-28 18:03] LABS: African American GFR (CKD) 80.2 (60.0-200.0); Anion Gap 13.4 mmol/L (10.00-18.00); BUN/Creat Ratio 17.63 Ratio (12.00-20.00); Blood Urea Nitrogen 14.6 mg/dL (9.0-27.0); Calcium 9.9 mg/dL (8.7-10.3); Carbon Dioxide 24.2 mmol/L (20.0-27.5); Non-African American GFR(CKD) 69.2 (60.0-200.0); Potassium 3.3 mmol/L (3.5-5.5)
[2022-03-28 18:53] LABS: Basophils # (A) 0.04 X 10*3/uL (0.00-0.10); Basophils % (A) 0.8 %; Eosinophils # (A) 0.24 X 10*3/uL (0.04-0.35); Eosinophils % (A) 4.9 %; HCT 35.2 % (37.2-46.3); HGB 11.8 g/dL (12.0-15.0); Immature Grans, Automated 0.2 %; Lymphocytes # (A) 1.82 X 10*3/uL (0.90-5.00); Lymphocytes % (A) 37.2 %; MCH 28.1 pg (27.0-32.0); MCHC 33.5 g/dL (32.0-37.0); MCV 83.8 fL (80.0-97.0); Mean Platelet Volume 10.8 fL (9.5-12.2); Monocytes # (A) 0.31 X 10*3/uL (0.20-1.00); Monocytes % (A) 6.3 %; NRBC Per 100 WBC 0 /100 WBCS (0.0-0.0); Neutrophils # (A) 2.47 X 10*3/uL (1.80-7.70); Neutrophils % (A) 50.6 %; Platelet Count 209 X 10*3/uL (140-440); RDW 14.3 % (11.5-14.5); WBC 4.89 X 10*3/uL (4.50-10.00)
[2022-03-28 19:03] LABS: INR 0.94 (0.90-1.11); Prothrombin Time 10.7 sec (9.9-11.9)
== END | disposition home or self-care (01) ==
LOC: LABPAT 13:27
PROVIDERS: ATTEND Family Medicine
DX: Z01.812 Encounter for preprocedural laboratory examination (principal); N39.0 Urinary tract infection, site not specified
CPT/HCPCS: 80048; 85025; 85610

== ENCOUNTER → 2022-04-04 | Outpatient (CLI) | payer MEDICARE | END | disposition home or self-care (01) | LOC: LABPAT 10:04 | PROVIDERS: ATTEND Orthopaedic Surgery | DX: Z01.812 Encounter for preprocedural laboratory examination (principal); M16.11 Unilateral primary osteoarthritis, right hip; Z22.322 Carrier or suspected carrier of Methicillin resistant Staphylococcus aureus | CPT/HCPCS: 87070 ==

== ENCOUNTER → 2022-04-22 | Outpatient (CLI) | payer MEDICARE | END | disposition home or self-care (01) | LOC: LABPAT 07:42 | PROVIDERS: ATTEND Orthopaedic Surgery | DX: Z53.9 Procedure and treatment not carried out, unspecified reason (principal) ==

== ENCOUNTER 2022-05-02 07:42 | Day surgery (SDC) | payer MEDICARE ==
[2022-04-22 15:42] LABS: African American GFR (CKD) 87.4 (60.0-200.0); Anion Gap 12.6 mmol/L (10.00-18.00); BUN/Creat Ratio 24.38 Ratio (12.00-20.00); Blood Urea Nitrogen 18.8 mg/dL (9.0-27.0); Carbon Dioxide 23.6 mmol/L (20.0-27.5); Non-African American GFR(CKD) 75.4 (60.0-200.0); Potassium 3.8 mmol/L (3.5-5.5)
[2022-04-22 16:43] LABS: INR 0.96 (0.90-1.11); Prothrombin Time 10.9 sec (9.9-11.9)
[2022-04-27 10:55] LABS: Basophils # (A) 0.05 X 10*3/uL (0.00-0.10); Basophils % (A) 1.2 %; Eosinophils # (A) 0.21 X 10*3/uL (0.04-0.35); Eosinophils % (A) 5.2 %; HGB 11.2 g/dL (12.0-15.0); Immature Grans, Automated 0 %; Lymphocytes # (A) 1.98 X 10*3/uL (0.90-5.00); Lymphocytes % (A) 48.6 %; MCH 27.9 pg (27.0-32.0); MCHC 32.9 g/dL (32.0-37.0); MCV 84.8 fL (80.0-97.0); Mean Platelet Volume 10.8 fL (9.5-12.2); Monocytes # (A) 0.23 X 10*3/uL (0.20-1.00); Monocytes % (A) 5.7 %; NRBC Per 100 WBC 0 /100 WBCS (0.0-0.0); Neutrophils % (A) 39.3 %; Platelet Count 221 X 10*3/uL (140-440); RBC 4.01 X 10*6/uL (4.10-5.20); RDW 14.4 % (11.5-14.5); WBC 4.07 X 10*3/uL (4.50-10.00)
[2022-04-28 13:47] VITALS: BMI 29.2
--- NOTE | 2022-05-01 22:15 | HP ---
HISTORY AND PHYSICAL DATE OF SURGERY: 05/02/2022. HISTORY OF PRESENT ILLNESS: Karolina Augustin is a 77-year-old patient seen with progressive symptomatic right hip osteoarthritis. We discussed options for treatment. She elected to proceed with direct anterior right total hip arthroplasty. Consent was obtained. Medical clearance was provided by Dr. Hernandez. PAST MEDICAL HISTORY: Hypertension, jqm-peykyep-zkmymloxz diabetes, hyperlipidemia, and COPD. PAST SURGICAL HISTORY: Lumpectomy, hysterectomy, and herniorrhaphy. DAILY MEDICATIONS: 1. Diclofenac. 2. Gabapentin. 3. Hydrocodone. 4. Hyzaar. 5. Metformin. 6. Metoprolol. 7. Omeprazole. 8. Tylenol. ALLERGIES: 1. Penicillin. 2. Statin. SOCIAL HISTORY: She denies tobacco use. PHYSICAL EVALUATION OF THE RIGHT HIP: She has a very limited range of motion with severe pain. Positive hip impingement sign. Straight-leg raise is negative. Her distal neurovascular exam is intact. RADIOGRAPHS: Of the right hip reveal severe osteoarthritic changes. IMPRESSION: 1. Right hip osteoarthritis. 2. Hypertension. 3. Aww-lwofcpr-kdmxrakum diabetes. 4. Chronic obstructive pulmonary disease. PLAN: Direct anterior right total hip arthroplasty. MMODL / IJN: [id number] /
[~2022-05-02 07:42] MED LIST changes: +ACETAMINOPHEN TAB 500 MG TAB PO PRN; +MELOXICAM 7.5 MG TAB PO PRN; -MIDAZOLAM 2 MG/2 ML VIAL IV PRN; +TRANEXAMIC ACID IN NACL,ISO-OS 1,000 MG in SALINE 1 100ML.BAG IVPB PRN; -fentaNYL (PF) 50 MCG/ML 2 ML AMP IV PRN
[2022-05-02 08:59] LABS: Glucose,Whole Blood 89 mg/dL (70-110)
[2022-05-02] MEDS ORDERED: MIDAZOLAM 2 MG/2 ML VIAL IVP ONE (09:21)
[2022-05-02] MEDS ORDERED: fentaNYL (PF) 50 MCG/ML 2 ML AMP IVP ONE (09:22)
[2022-05-02 09:38] VITALS: RESP 16
--- NOTE | 2022-05-02 09:54 | P.ANPRN ---
Procedure Note - Anesthesia - Nerve Block Performed Right Erector Spinae Single Time Out Performed: Yes ([id number]) Date of Procedure: 05/02/22 Procedure Start Time: : Procedure Stop Time: Location of Patient: PreOp Indication: Acute Post-Operative Pain, Dx/Pain Location (Right Hip), Requested by Surgeon Specifically requested for management of pain by DrDeep: Akhil Laguerre Sedation Type: Sedate with meaningful contact maintained Preparation: Sterile Prep Position: Prone Catheter: None Needle Types: Pajunk Needle Gauge: 21 Ultrasound used to visualize needle placement: Yes Ultrasound used to observe medication spread: Yes Injectate: 0.5% Ropivacaine (see comment for volume) (30 cc + decadron 4mg) Blood Aspirated: No Pain Paresthesia on Injection Noted: No Resistance on Injection: Normal Image Stored and Saved: Yes Events: Uneventful and Well Tolerated
[2022-05-02] MEDS ORDERED: GLYCOPYRROLATE 0.2 MG/ML 2 ML VIAL ONE (10:02)
[2022-05-02] MEDS ORDERED: SUCCINYLCHOLINE CHLORIDE 200 MG/10 ML VIAL IV ONE (10:02)
[2022-05-02] MEDS ORDERED: HYDROmorphone (PF) 1 MG/ML ONE (10:02)
[2022-05-02] MEDS ORDERED: DEXAMETHASONE SOD PHOSPHATE 4 MG/ML 1 ML VIAL ONE (10:02)
[2022-05-02] MEDS ORDERED: MIDAZOLAM 2 MG/2 ML VIAL ONE (10:02)
[2022-05-02] MEDS ORDERED: TRANEXAMIC ACID IN NACL,ISO-OS 1,000 MG/100 ML BAG ONE (10:02)
[2022-05-02] MEDS ORDERED: PROPOFOL 10 MG/ML 20 ML VIAL IV ONE (10:02)
[2022-05-02] MEDS ORDERED: NEOSTIGMINE 1 MG/ML 10 ML VIAL ONE (10:02)
[2022-05-02] MEDS ORDERED: ROPIVACAINE 5 MG/ML 30 ML VIAL ONE (10:02)
[2022-05-02] MEDS ORDERED: LIDOCAINE 2% INJ 20 MG/ML (2 ML VIAL) ONE (10:02)
[2022-05-02] MEDS ORDERED: fentaNYL (PF) 50 MCG/ML 2 ML AMP ONE (10:02)
[2022-05-02] MEDS ORDERED: ROCURONIUM 10 MG/ML (5 ML VIAL) IV ONE (10:02)
[2022-05-02] MEDS ORDERED: ceFAZolin 1,000 MG in SODIUM CHLORIDE 0.9% 1,000 ML IRRIGATION ONE (10:29)
[2022-05-02] MEDS ORDERED: LACTATED RINGERS 1,000 ML IV ONE ×2 (11:14→11:42)
--- NOTE | 2022-05-02 11:33 | FL ---
Intraoperative/procedural fluoroscopic services were provided. Total fluoroscopy time is 23 seconds w ith a total of 2 submitted images to PACS. Please see the operative/procedural note for further detai ls.
[2022-05-02] MEDS ORDERED: NALOXONE 0.4 MG/ML 1 ML VIAL IV PRN (11:42)
[2022-05-02] MEDS ORDERED: HYDROcodone/APAP 5-325MG 1 EACH TAB PO PRN ×2 (11:42)
[2022-05-02] MEDS ORDERED: HYDROmorphone 0.5 MG/0.5 ML SYRINGE IVP PRN ×3 (11:42)
[2022-05-02] MEDS ORDERED: ONDANSETRON 4 MG/2 ML VIAL IVP PRN (11:42)
--- NOTE | 2022-05-02 11:42 | P.OP ---
Date of Procedure: 05/02/22 Preoperative Diagnosis: Right hip osteoarthritis Postoperative Diagnosis: Right hip osteoarthritis Procedure(s) Performed: Direct anterior right total hip arthroplasty Implants: 1. Depuy Corail size 10 standard collar press-fit femoral stem 2. Depuy pinnacle 52 mm press-fit acetabular shell 3. Depuy pinnacle neutral polyethylene acetabular liner 36 mm ID 52 mm OD 4. Depuy metal femoral head 36 mm -2 Anesthesia: GETA, regional (Erector spinea block) Surgeon: Akhil Laguerre Leather Grader #1: Emanuel Arndt Estimated Blood Loss (ml): 120 Pathology: other (Femoral head) Condition: stable Disposition: PACU Indications for Procedure: 77-year-old patient seen with symptomatic right hip osteoarthritis. After treatment options were discussed, she elected to proceed with direct anterior right total hip arthroplasty. Operative Findings: See description of procedure Description of Procedure: The patient was taken to the operative suite after having an erector spinea block performed by the department of anesthesia for postoperative pain management. Patient underwent a general anesthetic by the department of anesthesia. Patient was then transferred to the [place] table. Patient was given preoperative IV antibiotics and TXA. Both lower extremities were placed in standard leg spars. The hip was then prepped and draped in the normal sterile orthopedic fashion. A standard anterior incision was made beginning 3 cm lateral and 1 cm distal to the ASIS extending 10 cm. Dissection was then carried down through the subcutaneous soft tissues down to the fascia overlying the tensor fascia trinh. An incision was now made through the fascia. Careful dissection was taken down exposing the tensor fascia trinh muscle. A Cobra retractor was now placed along the medial femoral neck and a second one along the lateral femoral neck. The venous circumflex vessels were now identified, cauterized and clipped. We identified the anterior hip capsule. An incision was made through the hip capsule along the lateral border. I performed a partial anterior capsulectomy. Retractors were now placed around the femoral neck itself. A femoral neck cut was now made with a sagittal saw. It was completed with an osteotome at the lateral neck area. The femoral head was now removed without difficulty. The extremity was now rotated to 60 of external rotation. It was locked in position. Residual labrum was now debrided out. Serial reaming was performed of the acetabulum while Rajan WILSON assisted holding an anterior retractor for exposure. Once we reached the appropriate size and a trial was position and fit nicely. The appropriate size was now chosen opened and made available. It was introduced into the acetabulum without difficulty. The C-arm/fluoroscopy was now brought into the operative field. We made sure we had a true AP pelvic view. We now under direct C-arm/fluoroscopy introduced into the acetabular component with appropriate version and i nclination. I held the cup in appropriate position while Rajan WILSON used a mallet to seat the acetabular component. I noted the component now to be well seated and stable. Acetabular cup introduce her was removed. The C-arm was pulled back. An appropriate liner was introduced and clicked into position. It was felt to be stable. At this point retractors were removed. The extremity was now placed into 130 external rotation with no traction. The leg was now dropped to the ground and adducted. Appropriate retractors were now positioned along the proximal femur. We also placed our femoral look into position. Additional capsular releasing was performed to gain access to the proximal femur. We now used a box osteotome. A canal finder was now utilized. Serial broaching was now performed with the assistance of Rajan WILSON tapping the broaches down with a mallet while held the broach in appropriate rotation and position. This was done until we reached the appropriate size with good overall rotational stability. Appropriate calcar planing was performed. A trial head/neck was placed into position. The hip was now reduced. The C- arm/fluoroscopy was brought back into the operative field. I obtained an AP pelvis which demonstrated adequate leg length alignment. I also noted adequate positioning and sizing of the trial components. The C-arm/fluoroscopy was pulle d back. Retractors were repositioned and the hip was dislocated. The leg was again taken down to the ground and adducted. Appropriate retractors were repositioned as well as the femoral hook. All trial components were removed. The femoral implant was opened along with the femoral head. The femoral implant was introduced on the appropriate handle into our pre-broached area. I held the component position well Rajan WILSON used a mallet to seat the femoral component. The femoral component was now noted to be well seated and stable.. The femoral head was introduced with good positioning and fixation noted. Retractors were now removed. The hip was now reduced. There appeared be good positioning of the hip confirmed on intraoperative fluoroscopy. Spot films were obtained to document this. A second gram of TXA was given. The deep and superficial soft tissues were infiltrated with local analgesic. Bipolar cautery had been utilized intermittently through the procedure for hemostasis. The wound was irrigated copiously with pulse lavage mechanical irrigation. The fascia was repaired with Vicryl suture. The subcutaneous soft tissues were repaired in layers with Vicryl suture. The skin was approximated with pernio/Dermabond. Sterile dressings were applied. Patient was then awakened, transferred to a bed and taken to recovery in stable condition. Rajan WILSON assisted with the complex procedure.
[2022-05-02 11:59] VITALS: TEMP 97.3
[2022-05-02] MEDS ORDERED: KETOROLAC 15 MG/ML 1 ML VIAL IVP ONE (12:03)
[2022-05-02] MEDS: HYDROmorphone 0.5 MG/0.5 ML SYRINGE IVP PRN ×4 (12:04→12:36)
[2022-05-02 12:10] LABS: Glucose,Whole Blood 179 mg/dL (70-110)
[2022-05-02] MEDS ORDERED: MORPHINE SULFATE 4 MG/ML SYRINGE IVP ONE (13:22)
[2022-05-02] MEDS ORDERED: ONDANSETRON ODT 4 MG TAB PO ONE (15:42)
[2022-05-02 15:50] VITALS: BP 150/74; PULSE 85
== END 2022-05-02 16:40 | disposition home health service (06) ==
LOC: OR 07:42
PROVIDERS: ATTEND Orthopaedic Surgery
DX: M16.11 Unilateral primary osteoarthritis, right hip (principal); G89.18 Other acute postprocedural pain; M25.551 Pain in right hip; M25.851 Other specified joint disorders, right hip; I10 Essential (primary) hypertension; E78.5 Hyperlipidemia, unspecified; J44.9 Chronic obstructive pulmonary disease, unspecified; E11.42 Type 2 diabetes mellitus with diabetic polyneuropathy; F32.9 Major depressive disorder, single episode, unspecified; M79.7 Fibromyalgia; K21.9 Gastro-esophageal reflux disease without esophagitis; I47.1 Supraventricular tachycardia; G25.81 Restless legs syndrome; Z98.890 Other specified postprocedural states; Z90.710 Acquired absence of both cervix and uterus; Z90.12 Acquired absence of left breast and nipple; Z88.0 Allergy status to penicillin; Z88.6 Allergy status to analgesic agent; Z88.8 Allergy status to other drugs, medicaments and biological substances
CPT/HCPCS: 27130; 97110; 97161; 64999; 86900; 86901; 80048; 85025; 85610; 86850; 88300; 73501; C1776; J2250; J2270; J1100; J0690 ×2; J2405; J3010; J1885; J1170

== ENCOUNTER → 2022-08-29 | Outpatient (CLI) | payer MEDICARE ==
[2022-08-29 14:49] LABS: Basophils # (A) 0.05 X 10*3/uL (0.00-0.10); Basophils % (A) 0.9 %; Eosinophils % (A) 3.7 %; HCT 35.6 % (37.2-46.3); HGB 10.7 g/dL (12.0-15.0); Immature Grans, Automated 0.2 %; Lymphocytes # (A) 1.89 X 10*3/uL (0.90-5.00); Lymphocytes % (A) 35.4 %; MCH 24.6 pg (27.0-32.0); MCHC 30.1 g/dL (32.0-37.0); MCV 81.8 fL (80.0-97.0); Mean Platelet Volume 10.7 fL (9.5-12.2); Monocytes # (A) 0.34 X 10*3/uL (0.20-1.00); Monocytes % (A) 6.4 %; NRBC Per 100 WBC 0 /100 WBCS (0.0-0.0); Neutrophils # (A) 2.85 X 10*3/uL (1.80-7.70); Neutrophils % (A) 53.4 %; Platelet Count 222 X 10*3/uL (140-440); RBC 4.35 X 10*6/uL (4.10-5.20); RDW 14.8 % (11.5-14.5); WBC 5.34 X 10*3/uL (4.50-10.00)
== END | disposition home or self-care (01) ==
LOC: LABPAT 08-22 08:38
PROVIDERS: ATTEND Surgery
DX: Z01.812 Encounter for preprocedural laboratory examination (principal); K43.2 Incisional hernia without obstruction or gangrene
CPT/HCPCS: 85025

== ENCOUNTER 2022-09-06 05:41 | Observation (INO) | payer MEDICARE ==
[2022-09-01 14:17] VITALS: BMI 31.3
[~2022-09-06 05:41] MED LIST changes: +HEPARIN SODIUM,PORCINE/PF 5,000 UNIT/0.5 ML SYRINGE SQ PRN; -LACTATED RINGERS 1,000 ML IV SCH; +LIDOCAINE 1% (10MG/ML) FOR IV START INTRADERMA PRN; -MELOXICAM 7.5 MG TAB PO PRN; +MIDAZOLAM 2 MG/2 ML VIAL IV PRN; -TRANEXAMIC ACID IN NACL,ISO-OS 1,000 MG in SALINE 1 100ML.BAG IVPB PRN
[2022-09-06 06:39] LABS: Glucose,Whole Blood 103 mg/dL (70-110)
[2022-09-06] MEDS ORDERED: ONDANSETRON 4 MG/2 ML VIAL ONE (06:57)
[2022-09-06] MEDS: LACTATED RINGERS 1,000 ML IV SCH ×2 (07:01→11:55)
[2022-09-06] MEDS ORDERED: fentaNYL (PF) 50 MCG/1 ML VIAL IV ONE (07:15)
[2022-09-06] MEDS ORDERED: MIDAZOLAM 2 MG/2 ML VIAL IV ONE (07:15)
--- NOTE | 2022-09-06 07:41 | P.ANPRN ---
Procedure Note - Anesthesia - Nerve Block Performed Bilateral Rectus Abdominis Single Time Out Performed: Yes Date of Procedure: 09/06/22 Procedure Start Time: 07:15 Procedure Stop Time: :25 Location of Patient: PreOp Indication: Acute Post-Operative Pain Sedation Type: Awake Preparation: Sterile Prep Position: Supine Needle Types: Pajunk Needle Gauge: 21 Ultrasound used to visualize needle placement: Yes Ultrasound used to observe medication spread: Yes Injectate: 0.5% Ropivacaine (see comment for volume) (0.25% ropiv 15ml right/left) Blood Aspirated: No Pain Paresthesia on Injection Noted: No Resistance on Injection: Normal Image Stored and Saved: Yes
[2022-09-06] MEDS ORDERED: PROPOFOL 10 MG/ML 20 ML VIAL IV ONE (07:45)
[2022-09-06] MEDS ORDERED: PHENYLEPHRINE-0.9% NACL SYG 1,000 MCG/10 ML SYRINGE ONE (07:45)
[2022-09-06] MEDS ORDERED: MIDAZOLAM 2 MG/2 ML VIAL ONE (07:45)
[2022-09-06] MEDS ORDERED: ROCURONIUM 10 MG/ML (5 ML VIAL) IV ONE (07:45)
[2022-09-06] MEDS ORDERED: NEOSTIGMINE 1 MG/ML 10 ML VIAL ONE (07:45)
[2022-09-06] MEDS ORDERED: fentaNYL (PF) 50 MCG/ML 2 ML AMP ONE (07:45)
[2022-09-06] MEDS ORDERED: GLYCOPYRROLATE 0.2 MG/ML 2 ML VIAL ONE (07:45)
[2022-09-06] MEDS ORDERED: SUCCINYLCHOLINE CHLORIDE 200 MG/10 ML VIAL IV ONE (07:45)
[2022-09-06] MEDS ORDERED: LIDOCAINE 2% INJ 20 MG/ML (2 ML VIAL) ONE (07:45)
[2022-09-06] MEDS ORDERED: HYDROmorphone (PF) 1 MG/ML ONE (07:45)
[2022-09-06] MEDS ORDERED: BUPIVACAIN-EPI 0.25%-1:200,000 30 ML VIAL SQ ONE (08:12)
[2022-09-06] MEDS ORDERED: LACTATED RINGERS 1,000 ML IV ONE (09:03)
[2022-09-06] MEDS ORDERED: METOCLOPRAMIDE 5 MG/ML 2 ML VIAL IVP PRN (09:03)
[2022-09-06] MEDS ORDERED: HYDROcodone/APAP 5-325MG 1 EACH TAB PO PRN ×2 (09:03)
[2022-09-06] MEDS ORDERED: NALOXONE 0.4 MG/ML 1 ML VIAL IV PRN (09:03)
[2022-09-06] MEDS ORDERED: ACETAMINOPHEN TAB 325 MG TAB PO PRN (09:03)
[2022-09-06] MEDS ORDERED: ONDANSETRON 4 MG/2 ML VIAL IVP PRN (09:03)
[2022-09-06] MEDS ORDERED: traMADol 50 MG TAB PO PRN (09:03)
--- NOTE | 2022-09-06 09:03 | P.OP ---
Date of Procedure: 09/06/22 Preoperative Diagnosis: Incisional hernia incarcerated Postoperative Diagnosis: Incarcerated incisional hernia Adhesions Procedure(s) Performed: Diagnostic laparoscopy Incarcerated incisional hernia Anesthesia: OANH Surgeon: Bonifacio Squires Estimated Blood Loss (ml): 5 Pathology: none sent Condition: stable Disposition: PACU Description of Procedure: The patient's placed on the operative table in the supine position. She received general endotracheal tube anesthesia. Her abdomen was prepped and draped usual fashion. The patient had multiple laparotomy scars. A Veress needles placed the left upper quadrant. The abdomen was insufflated. After adequate insufflation a fibrillar optical trochars placed in the left upper quadrant. The laparoscope was placed. Cavity. There were extensive adhesions noted throughout the pleural cavity. At this point due to the adhesions inside performed open repair of the incisional hernia. The abdomen was desufflated. The skin was incised in midline over top of the hernia. Then using blunt sharp dissection with cautery the pressure hernia was dissected free from some taste tissues and fascia. The patient appeared to have omentum within the incarcerated hernia. This was reduced back. Cavity. Next a [id number] 0 Ethibond sutures used to repair the fascia. The fascial defect measured approximately 15 cm in length. And 5 cm in width. Once the fascia was repaired. A 3 x 6" Prolene mesh was placed over top the repair and secured with secure strap-type her. A ISAEL drains placed through separate stab incision and brought out through the left right upper quadrant. The drain was secured with 2-0 nylon. Justice's fascia close Tonasket. Skin was closed table. Patient top she will was sent to recovery room in stable condition.
[2022-09-06] MEDS: HYDROmorphone 0.5 MG/0.5 ML SYRINGE IVP PRN ×4 (09:14→10:02)
[2022-09-06 09:22] LABS: Glucose,Whole Blood 134 mg/dL (70-110)
[2022-09-06] MEDS: KETOROLAC 15 MG/ML 1 ML VIAL IVP SCH ×2 (09:48→18:07)
[2022-09-06] MEDS: HYDROmorphone 1 MG/ML 1 ML SYRINGE IVP PRN ×2 (12:52→20:30)
[2022-09-06] MEDS ORDERED: DEXTROSE 50% SYRINGE 50 ML IVP PRN ×2 (14:01)
--- NOTE | 2022-09-06 15:03 | P.CONS ---
History of Present Illness - Reason for Consult Consult date: 09/06/22 med management - History of Present Illness Patient is a 77-year-old female with history of hypertension, diabetes, dyslipidemia, atrial fibrillation on anticoagulation presenting for incisional incarcerated hernia repair. [facility] physicians has been consulted for medical management. She claims that she has minimal pain around the incision site. She denies any flatus or bowel movements. Denies any chest pain, shortness of breath, nausea, vomiting, or urinary complaints. Patient seen and examined at bedside. Pertinent positives and negatives as discussed in HPI, a complete review of systems was performed and all other systems are negative. Vital signs reviewed General: nontoxic, no distress, appears at stated age Derm: warm, dry Head: atraumatic, normocephalic, symmetric Eyes: EOMI, no lid lag, anicteric sclera, pupils equal round reactive to light ENT: Nose and ears atraumatic Neck: No thyromegaly, supple Mouth: no lip lesion, mucus membranes moist Cardiovascular: S1S2 reg, systolic murmur, no edema Lungs: clear to auscultation bilateral, no rhonchi, no rales, no wheeze, no accessory muscle use Abdominal: soft, nontender to palpation, no guarding, no appreciable organomegaly, abdominal binder, dressing clean, dry, intact, ISAEL drain with serosanguineous fluid Ext: no gross muscle atrophy, muscle strength muscle strength 5 out of 5 in all 4 extremities, no contractures Neuro: CN II-XII grossly intact Psych: Alert, oriented, appropriate affect Assessment/Plan: Incarcerated incisional hernia status post repair -Deferred pain management and DVT prophylaxis to primary surgical service -PT/OT -Advance diet as tolerated Atrial fibrillation - resume anticoagulation when cleared for surgery Diabetes -Hold metformin -Sliding-scale insulin -Fingersticks before meals and at bedtime -A1c 6.2, reported completed 1 day ago Chronic medical problems: Hypertension Dyslipidemia Mood disorder Restless leg syndrome GERD -Continue home medications Thank you for allowing us to participate in the care of this pleasant patient. Do not hesitate to contact us with questions. Someone can be reached from the [facility] hospitalist group all hours of the day at [phone] or via [phone]. Past Medical History Past Medical History: Cancer, Chest Pain / Angina, Diabetes Mellitus, Eye Disorder, Fibromyalgia, GERD/Reflux, Hearing Disorder / Deafness, Hyperlipidemia, Hypertension, Liver Disease, Musculoskeletal Disorder, Osteoarthritis (OA), Pneumonia, Supraventricular Tachycardia (SVT) Additional Past Medical History / Comment(s): Intestinal adhesions, RESTLESS LEG, Hiatal Hernia, MENIERES, DIVERTICULITIS, GLAUCOMA - right eye, NEUROPATHY bilateral legs, hx anemia, irregular heartbeat, DDD, difficulty hearing certain tones, gout, hx skin cancer, fatty liver. History of Any Multi-Drug Resistant Organisms: None Reported Past Surgical History: Appendectomy, Bladder Surgery, Bowel Resection, Cholecystectomy, Ear Surgery, Heart Catheterization, Hernia Repair, Hysterectomy, Joint Replacement, Orthopedic Surgery, Tonsillectomy, Tubal Ligation Additional Past Surgical History / Comment(s): Direct Microlaryngoscopy and removal of left vocal cord mass, right breast biopsy, diagnostic laparoscopy with lysis of adhesions, bilateral knee replacements, bilateral cataracts removed with lens implants, TUBE IN RIGHT EAR FOR MENIERES, LEFT THUMB SURGERY, hiatal hernia repair, abdominal ventral hernia repair, EGD with dilation X3, spur removed from left heel, total right hip replacement. Past Anesthesia/Blood Transfusion Reactions: Previous Problems w/ Anesthesia, Motion Sickness, Postoperative Nausea & Vomiting (PONV) Additional Past Anesthesia/Blood Transfusion Reaction / Comm: STATES "DIFFICULT INTUBATION-JAW LOCKED UP AFTER A PREVIOUS INTUBATION". "Have to use child size tube so jaw doesn't lock up". 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 Difficult IV start. Past Psychological History: Depression Smoking Status: Former smoker Past Alcohol Use History: Rare Additional Past Alcohol Use History / Comment(s): Smoked for 5 years, off and on, less then a ppd, quit 40 years ago. Past Drug Use History: None Reported - Past Family History Brother(s) Family Medical History: Cancer Mother Family Medical History: Cancer, Deep Vein Thrombosis (DVT), Pulmonary Embolus Additional Family Medical History / Comment(s): STOMACH CANCER. Father Family Medical History: No Reported History Additional Family Medical History / Comment(s): COMMITTED SUICIDE. Medications and Allergies Home Medications Medication Instructions Recorded Confirmed Type Fenofibrate [Lofibra] 160 mg PO DAILY 11/17/18 09/01/22 History metFORMIN HCL [Glucophage] 500 mg PO HS 09/05/20 09/01/22 History Omeprazole 40 mg PO QAM 10/14/20 09/01/22 History HYDROcodone/APAP 7.5-325MG [[place] 1 tab PO Q6H PRN 05/02/21 09/01/22 History 7.5-325] Ezetimibe [Zetia] 10 mg PO DAILY 03/16/22 09/01/22 History rOPINIRole HCL [Requip] 0.5 mg PO HS 03/16/22 09/01/22 History Desvenlafaxine Succinate [Pristiq] 100 mg PO QAM 04/07/22 09/01/22 History Gabapentin [Neurontin] 300 mg PO BID 04/07/22 09/01/22 History Vit C/E/Zn/Coppr/Lutein/Zeaxan 1 each PO DAILY 04/07/22 09/01/22 History [Preservision Areds 2 Chew Tab] amLODIPine [Norvasc] 2.5 mg PO QAM 04/07/22 09/01/22 History Losartan Potassium [Cozaar] 100 mg PO QAM 04/28/22 09/01/22 History Apixaban [Eliquis] 2.5 mg PO BID #60 tab 05/02/22 09/01/22 Rx Allergies Allergy/AdvReac Type Severity Reaction Status Date / Time adhesive Allergy Rash/Hives Verified 09/01/22 13:56 Penicillins Allergy Rash/Hives Verified 09/01/22 13:56 Gebqimm-FSQ-PgO Reductase Allergy Rash/Hives Verified 09/01/22 13:56 Inhibitor [Huqzxtg-Oxf-Xnz Reductase Inhibitor] aspirin AdvReac STOMACH Verified 09/01/22 13:56 UPSET/HEARTBURN Physical Exam Vitals: Vital Signs Temp Pulse Resp BP Pulse Ox 09/06/22 12:16 98.1 F 81 18 146/83 93 L 09/06/22 10:36 84 16 138/65 97 09/06/22 10:15 85 16 135/63 98 09/06/22 10:00 88 16 140/66 94 L 09/06/22 09:45 84 16 99 09/06/22 09:30 81 16 156/71 99 09/06/22 09:15 76 14 163/75 99 09/06/22 09:00 77 14 154/71 99 09/06/22 08:57 97.6 F 76 14 154/69 97 09/06/22 07:27 76 16 151/71 100 09/06/22 06:22 97.7 F 82 20 166/77 100 Intake and Output 09/06/22 09/06/22 09/06/22 06:59 14:59 22:59 Intake Total 1600 Output Total 320 Balance 1280 Intake: IV 1600 Output: Urine 300 Estimated Blood Loss 20 Other: Weight 80.6 kg Results Labs: Abnormal Lab Results - Last 24 Hours (Table) 09/06/22 Range/Units 09:20 POC Glucose (mg/dL) 134 H (70-110) mg/dL
[2022-09-06 17:09] LABS: Glucose,Whole Blood 172 mg/dL (70-110)
[2022-09-06] MEDS: INSULIN ASPART (NovoLOG) 100 UNIT/ML VIAL SQ SCH ×2 (18:07→20:30)
[2022-09-06 20:15] LABS: Glucose,Whole Blood 161 mg/dL (70-110)
[2022-09-06] MEDS: DOCUSATE 100 MG CAP PO SCH (20:30)
[2022-09-06] MEDS: GABAPENTIN 300 MG CAP PO SCH (20:30)
[2022-09-07] MEDS: KETOROLAC 15 MG/ML 1 ML VIAL IVP SCH ×3 (00:12→13:12)
[2022-09-07 06:54] LABS: Basophils % (A) 0 %; Eosinophils # (A) 0.2 k/uL (0-0.7); Eosinophils % (A) 2 %; HCT 27.1 % (34.0-46.0); HGB 8.6 gm/dL (11.4-16.0); Lymphocytes % (A) 29 %; MCH 24.6 pg (25.0-35.0); MCHC 31.8 g/dL (31.0-37.0); MCV 77.3 fL (80.0-100.0); Mean Platelet Volume 7.3; Microcytosis Slight; Monocytes # (A) 0.4 k/uL (0-1.0); Monocytes % (A) 5 %; Neutrophils # (A) 4.4 k/uL (1.3-7.7); Neutrophils % (A) 62 %; Platelet Count 200 k/uL (150-450); RBC 3.51 m/uL (3.80-5.40); RDW 14.9 % (11.5-15.5); WBC 7.1 k/uL (3.8-10.6)
[2022-09-07 07:12] LABS: African American GFR (CKD) 73 (>60 ml/min/1.73 sqM); Anion Gap 3 mmol/L; Blood Urea Nitrogen 23 mg/dL (7-17); Carbon Dioxide 27 mmol/L (22-30); Chloride 107 mmol/L (98-107); Glucose 98 mg/dL (74-99); Non-African American GFR(CKD) 63 (>60 ml/min/1.73 sqM); Potassium 3.9 mmol/L (3.5-5.1); Sodium 137 mmol/L (137-145)
[2022-09-07 07:32] LABS: Glucose,Whole Blood 103 mg/dL (70-110)
[2022-09-07] MEDS: INSULIN ASPART (NovoLOG) 100 UNIT/ML VIAL SQ SCH ×2 (08:53→13:13)
[2022-09-07] MEDS: DOCUSATE 100 MG CAP PO SCH (08:54)
[2022-09-07] MEDS: GABAPENTIN 300 MG CAP PO SCH (08:54)
[2022-09-07] MEDS ORDERED: FENOFIBRATE 160 MG TAB PO SCH (09:00)
[2022-09-07] MEDS ORDERED: EZETIMIBE 10 MG TAB PO SCH (09:00)
[2022-09-07] MEDS ORDERED: amLODIPine 2.5 MG TAB PO SCH (09:00)
[2022-09-07] MEDS ORDERED: ENOXAPARIN 40 MG/0.4 ML SYRINGE SQ SCH (09:00)
[2022-09-07] MEDS ORDERED: LOSARTAN 50 MG TAB PO SCH (09:00)
[2022-09-07] MEDS ORDERED: PANTOPRAZOLE 40 MG TABLET PO SCH (09:00)
[2022-09-07] MEDS ORDERED: DESVENLAFAXINE SUCCINATE 50 MG TAB.ER.24H PO SCH (09:00)
[2022-09-07] MEDS: HYDROmorphone 1 MG/ML 1 ML SYRINGE IVP PRN (10:05)
[2022-09-07] MEDS: LACTATED RINGERS 1,000 ML IV SCH (11:10)
[2022-09-07 11:11] LABS: Glucose,Whole Blood 122 mg/dL (70-110)
--- NOTE | 2022-09-07 12:47 | P.DS ---
Providers Date of admission: 09/07/22 07:42 Expected date of discharge: 09/07/22 Attending physician: Bonifacio Squires Consults: 09/06/22 09:03 Consult Physician Routine Consulting Provider: Terese Sr Consult Reason/Comments: Medical management Do you want consulting provider notified?: Yes Primary care physician: Damir Hernandez [facility] Course: Discharge diagnosis 1. Incarcerated incisional hernia with adhesions status post diagnostic laparoscopy and repair of incarcerated incisional hernia Hospital course This is a 77-year-old female who presented with incisional incarcerated incisional hernia. She is status post diagnostic laparoscopy and repair of incarcerated incisional hernia. Her pain is controlled. She is tolerating diet. She has been up ambulating. She is afebrile. She is stable for discharge. Please refer to chart for any further details. Patient seen and examined with Dr. Squires Physician Bottle Booth Attendant note has been reviewed by physician. Signing provider agrees with the documented findings, assessment, and plan of care. Patient Condition at Discharge: Stable Plan - Discharge Summary Discharge Rx Participant: Yes New Discharge Prescriptions: Continue Fenofibrate [Lofibra] 160 mg PO DAILY metFORMIN HCL [Glucophage] 500 mg PO HS Omeprazole 40 mg PO QAM rOPINIRole HCL [Requip] 0.5 mg PO HS Desvenlafaxine Succinate [Pristiq] 100 mg PO QAM Gabapentin [Neurontin] 300 mg PO BID Vit C/E/Zn/Coppr/Lutein/Zeaxan [Preservision Areds 2 Chew Tab] 1 each PO DAILY HYDROcodone/APAP 7.5-325MG [[place] 7.5-325] 1 tab PO Q6H PRN PRN Reason: Pain Ezetimibe [Zetia] 10 mg PO DAILY amLODIPine [Norvasc] 2.5 mg PO QAM Losartan Potassium [Cozaar] 100 mg PO QAM No Action Apixaban [Eliquis] 2.5 mg PO BID #60 tab Discharge Medication List Fenofibrate [Lofibra] 160 mg PO DAILY 11/17/18 [History] metFORMIN HCL [Glucophage] 500 mg PO HS 09/05/20 [History] Omeprazole 40 mg PO QAM 10/14/20 [History] HYDROcodone/APAP 7.5-325MG [[place] 7.5-325] 1 tab PO Q6H PRN 05/02/21 [History] Ezetimibe [Zetia] 10 mg PO DAILY 03/16/22 [History] rOPINIRole HCL [Requip] 0.5 mg PO HS 03/16/22 [History] Desvenlafaxine Succinate [Pristiq] 100 mg PO QAM 04/07/22 [History] Gabapentin [Neurontin] 300 mg PO BID 04/07/22 [History] Vit C/E/Zn/Coppr/Lutein/Zeaxan [Preservision Areds 2 Chew Tab] 1 each PO DAILY 04/07/22 [History] amLODIPine [Norvasc] 2.5 mg PO QAM 04/07/22 [History] Losartan Potassium [Cozaar] 100 mg PO QAM 04/28/22 [History] Apixaban [Eliquis] 2.5 mg PO BID #60 tab 05/02/22 [Rx] Follow up Appointment(s)/Referral(s): Bonifacio Squires MD [STAFF PHYSICIAN] - 09/13/22 3:15 pm Activity/Diet/Wound Care/Special Instructions: ok to Resume Eliquis tomorrow 09/08/22 Patient to use pain meds from home No driving while taking [place] No lifting over 10 pounds You may shower. No soaking or tub baths for 2 weeks Very light activity until you are reevaluated at your follow up appointment with your surgeon Keep a log of ISAEL drain output and bring with you to your follow-up appointment Milk/strip drains 2-3 times a day Discharge Disposition: HOME WITH HOME HEALTH SERVICES
[2022-09-07 13:02] VITALS: BP 131/65; PULSE 83; RESP 15; TEMP 98.2
--- NOTE | 2022-09-07 13:07 | P.PN ---
Subjective Progress Note Date: 09/07/22 Subjective: Patient seen and examined at bedside. No acute events overnight. She has minimal back pain. She denies any new complaints. Pertinent positives and negatives as discussed above, a complete review of systems was performed and all other systems are negative. Vitals Signs Reviewed. General: nontoxic, no distress, appears at stated age Derm: warm, dry Head: atraumatic, normocephalic, symmetric Eyes: EOMI, no lid lag, anicteric sclera, pupils equal round reactive to light ENT: Nose and ears atraumatic Neck: No thyromegaly, supple Mouth: no lip lesion, mucus membranes moist Cardiovascular: S1S2 reg, systolic murmur, no edema Lungs: clear to auscultation bilateral, no rhonchi, no rales, no wheeze, no accessory muscle use Abdominal: soft, nontender to palpation, no guarding, no appreciable organomegaly, abdominal binder, dressing clean, dry, intact, ISAEL drain with serosanguineous fluid Ext: no gross muscle atrophy, muscle strength muscle strength 5 out of 5 in all 4 extremities, no contractures Neuro: CN II-XII grossly intact Psych: Alert, oriented, appropriate affect Assessment and Plan: Incarcerated incisional hernia status post repair -Deferred pain management and DVT prophylaxis to primary surgical service -PT/OT -Advance diet as tolerated Atrial fibrillation -okay to resume anticoagulation on 09/08. Surgery Diabetes -Hold metformin -Sliding-scale insulin -Fingersticks before meals and at bedtime -A1c 6.2, reported Chronic medical problems: Hypertension Dyslipidemia Mood disorder Restless leg syndrome GERD -Continue home medications Medically optimized for discharge home. Objective - Vital Signs Vital signs: Vital Signs Temp 98.2 F 09/07/22 12:31 Pulse 83 09/07/22 12:31 Resp 15 09/07/22 12:31 BP 131/65 09/07/22 12:31 Pulse Ox 98 09/07/22 12:31 FiO2 Intake & Output 09/06/22 09/07/22 09/07/22 18:59 06:59 18:59 Intake Total 1600 222 Output Total 320 50 Balance 1280 172 Intake: IV 1600 Oral 222 Output: Drainage 50 Right Abdomen 50 Urine 300 Estimated Blood Loss 20 Other: # Voids 2 1 - Labs CBC & Chem 7: 09/07/22 06:16 09/07/22 06:16 Labs: Abnormal Lab Results - Last 24 Hours (Table) 09/06/22 09/06/22 09/07/22 Range/Units 17:07 20:12 06:16 RBC 3.51 L (3.80-5.40) m/uL Hgb 8.6 L (11.4-16.0) gm/dL Hct 27.1 L (34.0-46.0) % MCV 77.3 L (80.0-100.0) fL MCH 24.6 L (25.0-35.0) pg BUN (7-17) mg/dL POC Glucose (mg/dL) 172 H 161 H (70-110) mg/dL 09/07/22 09/07/22 Range/Units 06:16 11:07 RBC (3.80-5.40) m/uL Hgb (11.4-16.0) gm/dL Hct (34.0-46.0) % MCV (80.0-100.0) fL MCH (25.0-35.0) pg BUN 23 H (7-17) mg/dL POC Glucose (mg/dL) 122 H (70-110) mg/dL
== END 2022-09-07 15:17 | disposition home health service (06) ==
LOC: OR 05:41 → 5NMEDONC 08:48 → OR 09-07 07:42 → 5NMEDONC 09-07 07:42
PROVIDERS: ADMIT Surgery; ATTEND Surgery
DX: K43.0 Incisional hernia with obstruction, without gangrene (principal); K66.0 Peritoneal adhesions (postprocedural) (postinfection); Z53.31 Laparoscopic surgical procedure converted to open procedure; I48.91 Unspecified atrial fibrillation; E11.42 Type 2 diabetes mellitus with diabetic polyneuropathy; I10 Essential (primary) hypertension; G25.81 Restless legs syndrome; K21.9 Gastro-esophageal reflux disease without esophagitis; F39 Unspecified mood [affective] disorder; M79.7 Fibromyalgia; H91.90 Unspecified hearing loss, unspecified ear; M19.90 Unspecified osteoarthritis, unspecified site; H40.9 Unspecified glaucoma; I47.1 Supraventricular tachycardia; K44.9 Diaphragmatic hernia without obstruction or gangrene; E78.00 Pure hypercholesterolemia, unspecified; M10.9 Gout, unspecified; K76.0 Fatty (change of) liver, not elsewhere classified; F32.A Depression, unspecified; Z79.84 Long term (current) use of oral hypoglycemic drugs; Z79.85 Long-term (current) use of injectable non-insulin antidiabetic drugs; Z79.01 Long term (current) use of anticoagulants; Z79.899 Other long term (current) drug therapy; Z88.0 Allergy status to penicillin; Z88.6 Allergy status to analgesic agent; Z91.011 Allergy to milk products; Z88.8 Allergy status to other drugs, medicaments and biological substances; Z91.048 Other nonmedicinal substance allergy status; Z85.828 Personal history of other malignant neoplasm of skin; Z90.49 Acquired absence of other specified parts of digestive tract; Z90.710 Acquired absence of both cervix and uterus; Z96.653 Presence of artificial knee joint, bilateral; Z96.641 Presence of right artificial hip joint; Z98.42 Cataract extraction status, left eye; Z98.41 Cataract extraction status, right eye; Z96.1 Presence of intraocular lens; Z87.891 Personal history of nicotine dependence; Z98.51 Tubal ligation status; Z98.890 Other specified postprocedural states; Z87.01 Personal history of pneumonia (recurrent); Z80.0 Family history of malignant neoplasm of digestive organs; Z82.49 Family history of ischemic heart disease and other diseases of the circulatory system; Z81.8 Family history of other mental and behavioral disorders
CPT/HCPCS: 64488; 49596; 86900; 86901; 80048; 85025; 86850; G0378; C1781; J2250; J0330; J1100; J2710; J2765; J0690; J2405; J1650; J3010 ×2; J1170 ×3; J1885 ×2; J2370; J2704; J1644; J2001

== ENCOUNTER 2022-12-30 09:22 | Inpatient (IN) | payer MEDICARE ==
[2022-12-30] MEDS ORDERED: NITROGLYCERIN SL TABS 0.4 MG TAB SUBLINGUAL STA (10:15)
--- NOTE | 2022-12-30 10:19 | ED ---
General Adult HPI - General Chief complaint: Chest Pain Stated complaint: Chest pain Time Seen by Provider: 12/30/22 09:39 Source: patient, RN notes reviewed Mode of arrival: ambulatory Limitations: no limitations - History of Present Illness Initial comments: Patient is a pleasant 77-year-old female presenting to the emergency department with concerns for chest discomfort. Onset of symptoms was a few days ago. Patient has sometimes tightness or pressure in her chest that is waxing and waning. Discomfort currently is 8/10. No radiation. Patient does have associated exertional dyspnea. Symptoms of chest discomfort also worsen with exertion. No nausea. No diaphoresis. Patient's blood pressure has been running high at home. Patient has had some persistent blurry vision out of her right eye. Patient states this is just lateral to the midline and encompasses around 20% of her vision. Patient states she is able to see through this area however it is blurry. No headache or weakness. - Related Data Home Medications Medication Instructions Recorded Confirmed Fenofibrate [Lofibra] 160 mg PO DAILY 11/17/18 09/14/22 metFORMIN HCL [Glucophage] 1,000 mg PO BID 09/05/20 09/14/22 Omeprazole 40 mg PO DAILY 10/14/20 09/14/22 HYDROcodone/APAP 7.5-325MG [Cody 1.5 tab PO HS 05/02/21 09/14/22 7.5-325] Ezetimibe [Zetia] 10 mg PO DAILY 03/16/22 09/14/22 rOPINIRole HCL [Requip] 0.5 mg PO BID 03/16/22 09/14/22 Desvenlafaxine Succinate [Pristiq] 100 mg PO DAILY 04/07/22 09/14/22 Gabapentin [Neurontin] 300 mg PO BID 04/07/22 09/14/22 Vit C/E/Zn/Coppr/Lutein/Zeaxan 1 tab PO BID 04/07/22 09/14/22 [Preservision Areds 2 Chew Tab] Losartan Potassium [Cozaar] 100 mg PO DAILY 04/28/22 09/14/22 Dapagliflozin Propanediol [Farxiga] 10 mg PO DAILY 09/14/22 09/14/22 Furosemide [Lasix] 20 mg PO Q48H 09/14/22 09/14/22 HYDROcodone/APAP 7.5-325MG [Cody 1 tab PO BID PRN 09/14/22 09/14/22 7.5-325] Metoprolol Succinate (ER) [Toprol 100 mg PO DAILY 09/14/22 09/14/22 XL] amLODIPine [Norvasc] 5 mg PO DAILY 09/14/22 09/14/22 Previous Rx's Medication Instructions Recorded Ferrous Sulfate [Iron (65 MG 325 mg PO BID-W/MEALS 21 Days #42 09/27/22 Elemental)] tab Allergies Allergy/AdvReac Type Severity Reaction Status Date / Time adhesive Allergy Rash/Hives Verified 12/30/22 09:31 Penicillins Allergy Rash/Hives Verified 12/30/22 09:31 Jijowcw-IJZ-XhU Reductase Allergy Rash/Hives Verified 12/30/22 09:31 Inhibitor [Wzrevaf-Lez-Qvu Reductase Inhibitor] aspirin AdvReac STOMACH Verified 12/30/22 09:31 UPSET/HEARTBURN Review of Systems ROS Statement: Those systems with pertinent positive or pertinent negative responses have been documented in the HPI. ROS Other: All systems not noted in ROS Statement are negative. Constitutional: Denies: fever Eyes: Reports: as per HPI ENT: Denies: ear pain Respiratory: Reports: as per HPI Cardiovascular: Reports: as per HPI, chest pain Endocrine: Denies: fatigue Gastrointestinal: Denies: abdominal pain Genitourinary: Denies: dysuria Musculoskeletal: Denies: back pain Neurological: Denies: weakness Past Medical History Past Medical History: Cancer, Chest Pain / Angina, Diabetes Mellitus, Eye Disorder, Fibromyalgia, GERD/Reflux, Hearing Disorder / Deafness, Hyperlip idemia, Hypertension, Liver Disease, Musculoskeletal Disorder, Osteoarthritis (OA), Pneumonia, Supraventricular Tachycardia (SVT) Additional Past Medical History / Comment(s): Intestinal adhesions, RESTLESS LEG, Hiatal Hernia, MENIERES, DIVERTICULITIS, GLAUCOMA - right eye, NEUROPATHY bilateral legs, hx anemia, irregular heartbeat, DDD, difficulty hearing certain tones, gout, hx skin cancer, fatty liver. History of Any Multi-Drug Resistant Organisms: None Reported Past Surgical History: Appendectomy, Bladder Surgery, Bowel Resection, Cholecystectomy, Ear Surgery, Heart Catheterization, Hernia Repair, Hysterectomy, Joint Replacement, Orthopedic Surgery, Tonsillectomy, Tubal Ligation Additional Past Surgical History / Comment(s): Direct Microlaryngoscopy and removal of left vocal cord mass, right breast biopsy, diagnostic laparoscopy with lysis of adhesions, bilateral knee replacements, bilateral cataracts removed with lens implants, TUBE IN RIGHT EAR FOR MENIERES, LEFT THUMB SURGERY, hiatal hernia repair, abdominal ventral hernia repair, EGD with dilation X3, spur removed from left heel, total right hip replacement. Past Anesthesia/Blood Transfusion Reactions: Previous Problems w/ Anesthesia, Motion Sickness, Postoperative Nausea & Vomiting (PONV) Additional Past Anesthesia/Blood Transfusion Reaction / Comment(s): STATES "DIFFICULT INTUBATION-JAW LOCKED UP AFTER A PREVIOUS INTUBATION". "Have to use child size tube so jaw doesn't lock up". 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 Difficult IV start. Past Psychological History: Anxiety, Depression Smoking Status: Former smoker Past Alcohol Use History: Rare Past Drug Use History: None Reported - Past Family History Brother(s) Family Medical History: Cancer Mother Family Medical History: Cancer, Deep Vein Thrombosis (DVT), Pulmonary Embolus Additional Family Medical History / Comment(s): STOMACH CANCER. Father Family Medical History: No Reported History Additional Family Medical History / Comment(s): COMMITTED SUICIDE. General Exam Limitations: no limitations General appearance: alert, in no apparent distress Head exam: Present: normocephalic, other (No tenderness over temporal artery) Eye exam: Present: normal appearance, PERRL, EOMI, other (Funduscopic exam without acute abnormality) Neck exam: Present: normal inspection Respiratory exam: Present: normal lung sounds bilaterally, chest wall tenderness (Mild tenderness anterior chest wall) Cardiovascular Exam: Present: regular rate, normal rhythm Expanded Peripheral pulses: 2+: Radial (R), Radial (L), Posterior Tibialis (R), Posterior Tibialis (L) GI/Abdominal exam: Present: soft. Absent: tenderness Extremities exam: Present: normal inspection. Absent: pedal edema, calf tenderness Neurological exam: Present: alert Psychiatric exam: Present: normal affect, normal mood Skin exam: Present: normal color Course Vital Signs 12/30/22 12/30/22 12/30/22 09:31 10:06 10:49 Temperature 97.9 F 98 F Pulse Rate 71 76 60 Respiratory 18 16 16 Rate Blood Pressure 162/92 180/80 173/96 O2 Sat by Pulse 95 98 94 L Oximetry 12/30/22 12/30/22 11:19 11:22 Temperature Pulse Rate 57 L 58 L Respiratory 18 18 Rate Blood Pressure 178/93 178/93 O2 Sat by Pulse 95 97 Oximetry EKG Findings - EKG Results: EKG: interpreted by ANTELMO (Lead III with T-wave inversion), sinus rhythm, normal axis, normal QRS Medical Decision Making - Medical Decision Making Was pt. sent in by a medical professional or institution (, PA, BEARINGIZER, urgent care, hospital, or custodial...) When possible be specific @ -No Did you speak to anyone other than the patient for history (EMS, parent, family, police, friend...)? What history was obtained from this source @ -No Did you review nursing and triage notes (agree or disagree)? Why? @ -I reviewed and agree with nursing and triage notes Were old charts reviewed (outside hosp., previous admission, EMS record, old EKG , old radiological studies, urgent care reports/EKG's, custodial records)? Report findings @ -No old charts were reviewed Differential Diagnosis (chest pain, altered mental status, abdominal pain women, abdominal pain men, vaginal bleeding, weakness, fever, dyspnea, syncope, headache, dizziness, GI bleed, back pain, seizure, CVA, palpatations, mental health)? @ -Differential Chest Pain: Stable Angina, Unstable Angina, STEMI, NSTEMI Aortic Dissection, Pneumothorax, Musculoskeletal, Esophageal Spasm GERD, Cholecystitis, Pancreatitis, Zoster, this is not meant to be an all-inclusive list. EKG interpreted by me (3pts min.). @ -As above X-rays interpreted by me (1pt min.). @ -Chest x-ray does not reveal acute abnormality CT interpreted by me (1pt min.). @ -Report reviewed U/S interpreted by me (1pt. min.). @ -None done What testing was considered but not performed or refused? (CT, X-rays, U/S, labs)? Why? @ -None What meds were considered but not given or refused? Why? @ -Originally considered aspirin however held this pending CT report Did you discuss the management of the patient with other professionals (professionals i.e. , KATIE, BEARINGIZER, lab, RT, psych nurse, social work nurse, federal java developer, teacher, chief quality officer, rn case manager)? Give summary @ -Case was discussed with Dr. Paiz, who will admit For Dr. Hernandez Was smoking cessation discussed for >3mins.? @ -No Was critical care preformed (if so, how long)? @ -No Were there social determinants of health that impacted care today? How? (Homelessness, low income, unemployed, alcoholism, drug addiction, transportation, low edu. Level, literacy, decrease access to med. care, longterm, rehab)? @ -No Was there de-escalation of care discussed even if they declined (Discuss DNR or withdrawal of care, Hospice)? DNR status @ -No What co-morbidities impacted this encounter? (DM, HTN, Smoking, COPD, CAD, Cancer, CVA, ARF, Chemo, Hep., AIDS, mental health diagnosis, sleep apnea, morbid obesity)? @ -None Was patient admitted / discharged? Hospital course, mention meds given and route, prescriptions, significant lab abnormalities, going to OR and other pertinent info. @ -Patient reevaluated and does feel much better. Patient is updated on results. Patient will be held with cardiology consult. Patient will also need ophthalmology consult. Neurology also placed. Undiagnosed new problem with uncertain prognosis? @ -No Drug Therapy requiring intensive monitoring for toxicity (Heparin, Nitro, Insulin, Cardizem)? @ -No Were any procedures done? @ -No Diagnosis/symptom? @ -Chest pain, blurry vision Acute, or Chronic, or Acute on Chronic? @ -Acute, acute Uncomplicated (without systemic symptoms) or Complicated (systemic symptoms)? @ -default Side effects of treatment? @ -No Exacerbation, Progression, or Severe Exacerbation? @ -No Poses a threat to life or bodily function? How? (Chest pain, [place], [place], pneumonia, PE, COPD, DKA, ARF, appy, cholecystitis, CVA, Diverticulitis, Homicidal, Suicidal, threat to staff... and all critical care pts) @ -No - Lab Data Result diagrams: 12/30/22 10:06 12/30/22 10:06 Lab Results 12/30/22 12/30/22 12/30/22 Range/Units 10:06 10:06 10:06 WBC 5.2 (3.8-10.6) k/uL RBC 4.96 (3.80-5.40) m/uL Hgb 12.7 (11.4-16.0) gm/dL Hct 39.2 (34.0-46.0) % MCV 78.9 L (80.0-100.0) fL MCH 25.7 (25.0-35.0) pg MCHC 32.5 (31.0-37.0) g/dL RDW 15.4 (11.5-15.5) % Plt Count 207 (150-450) k/uL MPV 9.5 Neutrophils % 56 % Lymphocytes % 33 % Monocytes % 6 % Eosinophils % 3 % Basophils % 0 % Neutrophils # 2.9 (1.3-7.7) k/uL Lymphocytes # 1.7 (1.0-4.8) k/uL Monocytes # 0.3 (0-1.0) k/uL Eosinophils # 0.2 (0-0.7) k/uL Basophils # 0.0 (0-0.2) k/uL PT 9.7 (9.0-12.0) sec INR 0.9 (<1.2) Sodium (137-145) mmol/L Potassium (3.5-5.1) mmol/L Chloride (98-107) mmol/L Carbon Dioxide (22-30) mmol/L Anion Gap mmol/L BUN (7-17) mg/dL Creatinine (0.52-1.04) mg/dL Est GFR (CKD-EPI)AfAm (>60 ml/min/1.73 sqM) Est GFR (CKD-EPI)NonAf (>60 ml/min/1.73 sqM) Glucose (74-99) mg/dL Calcium (8.4-10.2) mg/dL Total Bilirubin (0.2-1.3) mg/dL AST (14-36) U/L ALT (4-34) U/L Alkaline Phosphatase (38-126) U/L Troponin I (0.000-0.034) ng/mL Total Protein (6.3-8.2) g/dL Albumin (3.5-5.0) g/dL Urine Color Colorless Urine Appearance Clear (Clear) Urine pH 5.0 (5.0-8.0) Ur Specific [place] 1.008 (1.001-1.035) Urine Protein Trace H (Negative) Urine Glucose (UA) 4+ H (Negative) Urine Ketones Negative (Negative) Urine Blood Negative (Negative) Urine Nitrite Negative (Negative) Urine Bilirubin Negative (Negative) Urine Urobilinogen <2.0 (<2.0) mg/dL Ur Leukocyte Esterase Small H (Negative) Urine RBC <1 (0-5) /hpf Urine WBC 12 H (0-5) /hpf Ur Squamous Epith Cells <1 (0-4) /hpf Urine Bacteria Few H (None) /hpf 12/30/22 12/30/22 Range/Units 10:06 10:06 WBC (3.8-10.6) k/uL RBC (3.80-5.40) m/uL Hgb (11.4-16.0) gm/dL Hct (34.0-46.0) % MCV (80.0-100.0) fL MCH (25.0-35.0) pg MCHC (31.0-37.0) g/dL RDW (11.5-15.5) % Plt Count (150-450) k/uL MPV Neutrophils % % Lymphocytes % % Monocytes % % Eosinophils % % Basophils % % Neutrophils # (1.3-7.7) k/uL Lymphocytes # (1.0-4.8) k/uL Monocytes # (0-1.0) k/uL Eosinophils # (0-0.7) k/uL Basophils # (0-0.2) k/uL PT (9.0-12.0) sec INR (<1.2) Sodium 141 (137-145) mmol/L Potassium 4.0 (3.5-5.1) mmol/L Chloride 105 (98-107) mmol/L Carbon Dioxide 25 (22-30) mmol/L Anion Gap 11 mmol/L BUN 23 H (7-17) mg/dL Creatinine 0.71 (0.52-1.04) mg/dL Est GFR (CKD-EPI)AfAm >90 (>60 ml/min/1.73 sqM) Est GFR (CKD-EPI)NonAf 84 (>60 ml/min/1.73 sqM) Glucose 116 H (74-99) mg/dL Calcium 9.6 (8.4-10.2) mg/dL Total Bilirubin 0.4 (0.2-1.3) mg/dL AST 26 (14-36) U/L ALT 21 (4-34) U/L Alkaline Phosphatase 81 (38-126) U/L Troponin I <0.012 (0.000-0.034) ng/mL Total Protein 6.9 (6.3-8.2) g/dL Albumin 4.5 (3.5-5.0) g/dL Urine Color Urine Appearance (Clear) Urine pH (5.0-8.0) Ur Specific [place] (1.001-1.035) Urine Protein (Negative) Urine Glucose (UA) (Negative) Urine Ketones (Negative) Urine Blood (Negative) Urine Nitrite (Negative) Urine Bilirubin (Negative) Urine Urobilinogen (<2.0) mg/dL Ur Leukocyte Esterase (Negative) Urine RBC (0-5) /hpf Urine WBC (0-5) /hpf Ur Squamous Epith Cells (0-4) /hpf Urine Bacteria (None) /hpf Disposition Clinical Impression: Chest pain, Blurry vision Disposition: ADMITTED IP TO THIS HOSP Is patient prescribed a controlled substance at d/c from ED?: No Referrals: Damir Hernandez DO [Primary Care Provider] - 1-2 days Time of Disposition: 11:27
[2022-12-30 10:25] LABS: ALT 21 U/L (4-34); AST 26 U/L (14-36); African American GFR (CKD) >90 (>60 ml/min/1.73 sqM); Albumin 4.5 g/dL (3.5-5.0); Alkaline Phosphatase 81 U/L (38-126); Anion Gap 11 mmol/L; Blood Urea Nitrogen 23 mg/dL (7-17); Calcium 9.6 mg/dL (8.4-10.2); Carbon Dioxide 25 mmol/L (22-30); Chloride 105 mmol/L (98-107); Glucose 116 mg/dL (74-99); Non-African American GFR(CKD) 84 (>60 ml/min/1.73 sqM); Sodium 141 mmol/L (137-145); Total Bilirubin 0.4 mg/dL (0.2-1.3); Total Protein 6.9 g/dL (6.3-8.2)
--- NOTE | 2022-12-30 10:40 | XR ---
EXAMINATION TYPE: XR chest 2V DATE OF EXAM: 12/30/2022 10:34 AM COMPARISON: Chest radiographs from 09/16/2022 TECHNIQUE: XR chest 2V Frontal and lateral views of the chest. CLINICAL INDICATION:Female, 77 years old with history of cp; FINDINGS: Lungs/Pleura: No evidence of pneumothorax, pleural effusion or focal consolidation. Chronic senescent parenchymal change. Pulmonary vascularity: Unremarkable. Heart/mediastinum: Cardiomediastinal silhouette is unremarkable. Atherosclerotic calcifications are seen in the aorta. Musculoskeletal: No acute osseous pathology. Mild degenerative changes of the thoracic spine. IMPRESSION: No acute cardiopulmonary disease process.
[2022-12-30 10:41] LABS: INR 0.9 (<1.2); Prothrombin Time 9.7 sec (9.0-12.0)
--- NOTE | 2022-12-30 10:46 | CT ---
EXAMINATION TYPE: CT brain wo con DATE OF EXAM: 12/30/2022 COMPARISON: 03/16/2022 HISTORY: 77-year-old female blurred vision TECHNIQUE: Examination was done in axial plane without intravenous contrast. Coronal and sagittal r econstructions performed. CT DLP: 1123.4 mGycm Automated exposure control for dose reduction was used. FINDINGS: There is no evidence of acute intracranial hemorrhage, acute ischemic changes, mass, mass-effect, or extra-axial fluid collection. There is no effacement of cerebral sulci or basal subarachnoid cister ns. There is no hydrocephalus. There is no midline shift. Cleary-white matter distinction is preserv ed. A few foci of hypodensity in the subcortical/deep white matter regions of the bifrontal lobes. Not we ll-seen previously. Atherosclerotic calcifications in the carotid siphons. Air-fluid level right maxillary sinus. Mastoid air cells are well pneumatized. Previous right mastoid resection changes. Globes are intact. Benign hyperostosis frontalis interna. IMPRESSION: 1. A few foci of hypodensity in the subcortical/deep white matter regions of both frontal lobes sugge st changes of chronic small vessel ischemic disease. However, not well-seen on 03/16/2022. Some interv al progression is suggested. Consider follow-up MRI if indicated. 2. Otherwise, no acute intracranial abnormality seen. 3. Air-fluid level right maxillary sinus may be seen with acute sinusitis.
[2022-12-30 10:47] LABS: Basophils % (A) 0 %; Eosinophils # (A) 0.2 k/uL (0-0.7); Eosinophils % (A) 3 %; HCT 39.2 % (34.0-46.0); HGB 12.7 gm/dL (11.4-16.0); Lymphocytes # (A) 1.7 k/uL (1.0-4.8); Lymphocytes % (A) 33 %; MCH 25.7 pg (25.0-35.0); MCHC 32.5 g/dL (31.0-37.0); MCV 78.9 fL (80.0-100.0); Mean Platelet Volume 9.5; Monocytes # (A) 0.3 k/uL (0-1.0); Monocytes % (A) 6 %; Neutrophils # (A) 2.9 k/uL (1.3-7.7); Neutrophils % (A) 56 %; Platelet Count 207 k/uL (150-450); RBC 4.96 m/uL (3.80-5.40); RDW 15.4 % (11.5-15.5); WBC 5.2 k/uL (3.8-10.6)
[2022-12-30 11:02] LABS: Appearance,Urine Clear (Clear); Bacteria,Urine Few /hpf; Bilirubin,Urine Negative (Negative); Blood,Urine Negative (Negative); Color,Urine Colorless; Glucose,Urine (UA) 4+ (Negative); Ketones,Urine Negative (Negative); Leukocyte Esterase,Urine Small (Negative); Nitrite,Urine Negative (Negative); Protein,Urine Trace (Negative); RBC,Urine <1 /hpf (0-5); Specific Gravity,Urine 1.008 (1.001-1.035); Squamous Epithelial Cell,Urine <1 /hpf (0-4); Urobilinogen,Urine <2.0 mg/dL (<2.0); WBC,Urine 12 /hpf (0-5)
[2022-12-30] MEDS ORDERED: ASPIRIN 81 MG PO STA (11:28)
[2022-12-30] MEDS ORDERED: NITROGLYCERIN SL TABS 0.4 MG TAB SUBLINGUAL PRN (11:28)
[2022-12-30] MEDS: NITROGLYCERIN OINT 1 INCH/GM PACKET TOPICAL SCH ×2 (14:11→17:18)
--- NOTE | 2022-12-30 14:55 | CT ---
EXAMINATION TYPE: CT angio chest DATE OF EXAM: 12/30/2022 COMPARISON: Correlation radiograph same date HISTORY: 77-year-old female Chest pain TECHNIQUE: Contiguous axial scanning of the chest performed with IV Contrast, patient injected with 1 00 mL of Isovue 370. Coronal/sagittal MIP reconstructions performed. CT DLP: 364.7 mGycm Automated exposure control for dose reduction was used. FINDINGS: Heart normal size without pericardial effusion. No flattening of the interventricular septum or reflu x of contrast into the hepatic veins. LAD and RCA coronary artery calcifications are present. Mild atherosclerotic arch calcifications with conventional arch vessel branching anatomy. Ectatic upp er descending thoracic aorta at 3.0 cm. No thoracic lymphadenopathy by CT size criteria. There is borderline to mildly enlarged caliber to the main right and left pulmonary arteries measurin g up to 2.7 cm suggesting underlying pulmonary hypertension. No evidence for pulmonary embolus. Biapical pleural-parenchymal scarring. No consolidation or pleural effusion. Tiny calcified granuloma right midlung. 4 mm lateral right midlung pulmonary nodule, axial image 66. 7 mm right midlung pulmonary nodule, axial image 70. No consolidation or pleural effusion. There is a moderate-sized hiatal hernia with postoperative change at the GE junction. Query prior hia julisa hernia repair. Epigastric rectus diastases noted. Some mesh repair is present. Bones: Accentuated lower thoracic kyphosis. Moderate degenerative disc disease throughout. IMPRESSION: 1. NO EVIDENCE FOR PULMONARY EMBOLUS. 2. POSSIBLE UNDERLYING PULMONARY ARTERIAL HYPERTENSION. CLINICALLY CORRELATE. 3. A COUPLE PULMONARY NODULES ON THE RIGHT MEASURING UP TO 7 MM. RECOMMEND 6 MONTH FOLLOW-UP CT CHEST TO REASSESS. 4. MODERATE SIZED HIATAL HERNIA WITH POSTOPERATIVE CHANGES AT THE GE JUNCTION. QUERY PRIOR HIATAL HER BRANDON REPAIR WITH RECURRENCE.
--- NOTE | 2022-12-30 16:18 | P.CNNES ---
History of Present Illness Consult date: 12/30/22 Requesting physician: Kumar Lemus Reason for Consult: right eye visual change History of Present Illness: This is a 77-year-old woman with history of diabetes, hypertension who presented emergency department because of the visual loss over the right eye and chest pain. Patient stated that about 3 days ago she woke up and she knows that she could not see out of the right eye and it felt very blurry and it's mostly that she can't see in the middle and blurry over the left portion of the right eye. She denies any pain with moving the eye. She has a frontal headache and states is mild, states is about 6 which is new radiates to the neck region. Denies any focal weakness, numbness, difficulty getting her words out or swallowing. She denies any history of stroke or TIA or history of atrial fibrillation. She is not on any antiplatelets. Some other workup during his hospital visit consisted of: Initial blood pressure is 162/90 2 repeat it is a 180/88. Glucose is 116 that. CRP is less than 0.5. CT head is reported as a few foci of hypodensity in the subcortical/deep white matter region of both the frontal lobe suggest changes of chronic small vessel ischemic disease. However not well seen on 03/16/2022. Otherwise no acute intracranial abnormality seen. I personally reviewed CT and I agree to report. EKG reported as sinus rhythm. Normal EKG. No IV TPA since the patient's symptoms was 3 days ago and the risks outweigh the benefits. Review of Systems Review of system: The 12 point system was reviewed and apparent positive and negative per HPI. Past Medical History Past Medical History: Cancer, Chest Pain / Angina, Diabetes Mellitus, Eye Disorder, Fibromyalgia, GERD/Reflux, Hearing Disorder / Deafness, Hyp erlipidemia, Hypertension, Liver Disease, Musculoskeletal Disorder, Osteoarthritis (OA), Pneumonia, Supraventricular Tachycardia (SVT) Additional Past Medical History / Comment(s): Intestinal adhesions, RESTLESS LEG, Hiatal Hernia, MENIERES, DIVERTICULITIS, GLAUCOMA - right eye, NEUROPATHY bilateral legs, hx anemia, irregular heartbeat, DDD, difficulty hearing certain tones, gout, hx skin cancer, fatty liver. History of Any Multi-Drug Resistant Organisms: None Reported Past Surgical History: Appendectomy, Bladder Surgery, Bowel Resection, Cholecystectomy, Ear Surgery, Heart Catheterization, Hernia Repair, Hysterectomy , Joint Replacement, Orthopedic Surgery, Tonsillectomy, Tubal Ligation Additional Past Surgical History / Comment(s): Direct Microlaryngoscopy and removal of left vocal cord mass, right breast biopsy, diagnostic laparoscopy with lysis of adhesions, bilateral knee replacements, bilateral cataracts removed with lens implants, TUBE IN RIGHT EAR FOR MENIERES, LEFT THUMB SURGERY, hiatal hernia repair, abdominal ventral hernia repair, EGD with dilation X3, spur removed from left heel, total right hip replacement. Past Anesthesia/Blood Transfusion Reactions: Previous Problems w/ Anesthesia, Motion Sickness, Postoperative Nausea & Vomiting (PONV) Additional Past Anesthesia/Blood Transfusion Reaction / Comment(s): STATES "DI FFICULT INTUBATION-JAW LOCKED UP AFTER A PREVIOUS INTUBATION". "Have to use child size tube so jaw doesn't lock up". 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 Difficult IV start. Past Psychological History: Anxiety, Depression Additional Psychological History / Comment(s): . Smoking Status: Former smoker Past Alcohol Use History: Rare Additional Past Alcohol Use History / Comment(s): Smoked for 5 years, off and on, less then a ppd, quit 40 years ago. Past Drug Use History: None Reported - Past Family History Brother(s) Family Medical History: Cancer Mother Family Medical History: Cancer, Deep Vein Thrombosis (DVT), Pulmonary Embolus Additional Family Medical History / Comment(s): STOMACH CANCER. Father Family Medical History: No Reported History Additional Family Medical History / Comment(s): COMMITTED SUICIDE. Medications and Allergies Home Medications Medication Instructions Recorded Confirmed Type Fenofibrate [Lofibra] 160 mg PO DAILY 11/17/18 12/30/22 History metFORMIN HCL [Glucophage] 1,000 mg PO BID 09/05/20 12/30/22 History Omeprazole 40 mg PO DAILY 10/14/20 12/30/22 History HYDROcodone/APAP 7.5-325MG [[place] 1.5 tab PO HS 05/02/21 12/30/22 History 7.5-325] Ezetimibe [Zetia] 10 mg PO DAILY 03/16/22 12/30/22 History rOPINIRole HCL [Requip] 0.5 mg PO BID 03/16/22 12/30/22 History Desvenlafaxine Succinate [Pristiq] 100 mg PO DAILY 04/07/22 12/30/22 History Gabapentin [Neurontin] 300 mg PO BID 04/07/22 12/30/22 History Vit C/E/Zn/Coppr/Lutein/Zeaxan 1 tab PO BID 04/07/22 12/30/22 History [Preservision Areds 2 Chew Tab] Losartan Potassium [Cozaar] 100 mg PO DAILY 04/28/22 12/30/22 History Dapagliflozin Propanediol [Farxiga] 10 mg PO DAILY 09/14/22 12/30/22 History Furosemide [Lasix] 20 mg PO Q48H 09/14/22 12/30/22 History HYDROcodone/APAP 7.5-325MG [[place] 1 tab PO BID PRN 09/14/22 12/30/22 History 7.5-325] Metoprolol Succinate (ER) [Toprol 100 mg PO DAILY 09/14/22 12/30/22 History XL] amLODIPine [Norvasc] 5 mg PO DAILY 09/14/22 12/30/22 History Ferrous Sulfate [Iron (65 MG 325 mg PO BID-W/MEALS 21 Days #42 09/27/22 12/30/22 Rx Elemental)] tab Allergies Allergy/AdvReac Type Severity Reaction Status Date / Time adhesive Allergy Rash/Hives Verified 12/30/22 12:50 Penicillins Allergy Rash/Hives Verified 12/30/22 12:50 Mogagon-BCA-BtS Reductase Allergy Rash/Hives Verified 12/30/22 12:50 Inhibitor [Vweenos-Wzz-Itm Reductase Inhibitor] aspirin AdvReac STOMACH Verified 12/30/22 12:50 UPSET/HEARTBURN Physical Examination - Vital Signs Vital Signs: Vital Signs Temp Pulse Resp BP Pulse Ox 12/30/22 14:58 98 F 80 20 160/88 98 12/30/22 14:10 67 14 162/88 97 12/30/22 14:00 66 12 158/93 12/30/22 13:50 71 13 158/93 96 12/30/22 13:40 66 32 H 158/93 12/30/22 13:30 67 24 153/85 95 12/30/22 13:27 68 18 153/85 94 L 12/30/22 13:20 67 14 153/85 95 12/30/22 13:10 68 26 H 153/85 94 L 12/30/22 13:00 66 17 145/70 94 L 12/30/22 12:50 65 22 145/70 95 12/30/22 12:40 66 18 145/70 96 12/30/22 12:30 64 22 173/81 95 12/30/22 12:20 60 22 173/81 95 12/30/22 12:10 60 25 H 173/81 96 12/30/22 12:00 66 16 171/96 96 12/30/22 11:50 62 9 L 171/96 97 12/30/22 11:40 66 47 H 171/96 98 12/30/22 11:30 58 L 19 178/93 96 12/30/22 11:22 58 L 18 178/93 97 12/30/22 11:20 60 17 161/91 97 12/30/22 11:19 57 L 18 178/93 95 12/30/22 11:10 57 L 20 161/91 96 12/30/22 11:00 62 16 173/96 94 L 12/30/22 10:50 58 L 16 173/96 94 L 12/30/22 10:49 60 16 173/96 94 L 12/30/22 10:40 59 L 7 L 96 12/30/22 10:30 175/87 12/30/22 10:20 175/87 12/30/22 10:10 65 11 L 175/87 95 12/30/22 10:06 98 F 76 16 180/80 98 12/30/22 10:00 64 25 H 180/88 94 L 12/30/22 09:50 63 23 12/30/22 09:48 63 29 H 12/30/22 09:31 97.9 F 71 18 162/92 95 Intake and Output 12/30/22 12/30/22 12/30/22 06:59 14:59 22:59 Intake Total 120 Balance 120 Intake: Oral 120 Other: Weight 82.554 kg 82.554 kg GENERAL: The patient is lying in bed and is not in acute distress. CHEST: The heart rate is regular rate rhythm. No murmurs to auscultation. LUNG: Clear to auscultation bilaterally no wheezing noted throughout. Not labored breathing. ABDOMEN/GI: Bowel sounds present in all 4 quadrants. No tenderness to palpation throughout. NEUROLOGICAL: Higher mental function: The patient is awake, alert, oriented to self, place and time. Patient is following commands. No aphasia and no neglect. Cranial nerves: The pupils are round, equal and reactive to light and accommodation. Visual lane are full to confrontation throughout. [place] she has blurry vision over the left side of eye. Her iris over right eye has petechial spot. Extraocular movement is intact no nystagmus is noted. Facial sensation is normal to touch throughout. The facial strength is normal throughout. Hearing is normal bilaterally to hand rub. Tongue is midline and moved [id number] without any difficulty. No dysarthria is noted. Shoulder shrug is normal bilaterally. Motor: The strength is 5 over 5 throughout. Normal tone and bulk. Cerebellum: Normal finger to nose bilaterally. Sensation: Sensation is normal to touch throughout. Reflexes (right/left):1+ throughout. Plantars are downgoing bilaterally. Results - Laboratory Findings CBC and BMP: 12/30/22 10:06 12/30/22 10:06 Abnormal Lab Findings: Abnormal Labs 12/30/22 12/30/22 12/30/22 10:06 10:06 10:06 MCV 78.9 L D-Dimer BUN 23 H Glucose 116 H Urine Protein Trace H Urine Glucose (UA) 4+ H Ur Leukocyte Esterase Small H Urine WBC 12 H Urine Bacteria Few H 12/30/22 10:06 MCV D-Dimer 2.10 H BUN Glucose Urine Protein Urine Glucose (UA) Ur Leukocyte Esterase Urine WBC Urine Bacteria Assessment and Plan Assessment: Is a 77-year-old woman who presented because of a vision loss over the right eye and it started about 3 days ago and feels some improvement. She feels mostly over the central and blurry vision over the left side of the right eye. Acute visual disturbance over the right eye: Probable Acute ischemic stroke. Rule out other eye issues. Chest pain Hypertension Diabetes mellitus Plan: The patient was started on aspirin 325mg daily but patient stated that she cannot tolerate aspirin. Therefore I started the patient on Plavix 75 mg daily. She has ALLERGIES to statins. She is on home medication of phenol fibroids. I ordered MRI of the brain, ESR, carotid duplex, 2-D echo, hemoglobin A1c, TSH. Patient's is reluctant of starting steroids. CRP is negative social unlikely this is giant cell arteritis. If ESR is elevated drastically then we'll start the patient on steroids by mouth. Neuro checks every 4 hours On cardiac monitoring Resulted PT and OT Cardiology is consulted Ophthalmology team is consulted We'll defer the rest of the medical management to primary team For DVT prophylaxis I started the patient on subcu heparin 5000 units every 12 hours. Plan discussed with the patient and her nurse. Thank you for the consultation. Time with Patient: Greater than 30
--- NOTE | 2022-12-30 16:51 | US ---
EXAMINATION TYPE: US carotid duplex BILAT DATE OF EXAM: 12/30/2022 Exam done portable COMPARISON: US 2013 CLINICAL INDICATION: Female, 77 years old with history of stroke; TECHNIQUE: Carotid duplex ultrasound examination. Indirect Doppler criteria was utilized. FINDINGS: EXAM MEASUREMENTS: RIGHT: Peak Systolic Velocity (PSV) cm/sec ----- Right CCA: 98.1 ----- Right ICA: 74.8 ----- Right ECA: 116.0 ICA/CCA ratio: 0.8 RIGHT: End Diastole cm/sec ----- Right CCA: 17.5 ----- Right ICA: 20.2 ----- Right ECA: 9.7 LEFT: Peak Systolic Velocity (PSV) cm/sec ----- Left CCA: 94.5 ----- Left ICA: 86.9 ----- Left ECA: 107.0 ICA/CCA ratio: 0.9 LEFT: End Diastole cm/sec ----- Left CCA: 14.7 ----- Left ICA: 22.6 ----- Left ECA: 7.4 VERTEBRALS (direction of flow): Right Vertebral: Antegrade Left Vertebral: Antegrade Rhythm: Normal No significant stenosis IMPRESSION: Less than 50% stenosis of the bilateral carotid bifurcations. Criteria for Assigning % of Stenosis / Diameter reduction (Estimation based on the indirect measurements of the internal carotid artery velocities (ICA PSV). 1. Normal (no stenosis)=ICA PSV < 125 cm/s: ratio < 2.0: ICA EDV<40 cm/s. 2. Less than 50% stenosis=ICA PSV < 125 cm/s: ratio < 2.0: ICA EDV<40 cm/s. 3. 50 to 69% stenosis=ICA PSV of 125 to 230 cm/s: ration 2.0 ? 4.0: ICA EDV 40-100 cm/s. 4. Greater than 70% stenosis to near occlusion= ICA PSV > 230 cm/s: ratio > 4.0: ICA EDV > 100 cm/s. 5. Near occlusion= ICA PSV velocities may be low or undetectable: variable ratio and ICA EDV. 6. Total occlusion=unable to detect flow.
[2022-12-30] MEDS: CLOPIDOGREL 75 MG TAB PO SCH (17:17)
[2022-12-30] MEDS: FERROUS SULFATE 325 MG TAB PO SCH (17:17)
[2022-12-30] MEDS ORDERED: DEXTROSE 50% SYRINGE 50 ML IVP PRN ×2 (19:09)
[2022-12-30 21:19] LABS: Glucose,Whole Blood 121 mg/dL (70-110)
[2022-12-30] MEDS: INSULIN ASPART (NovoLOG) 100 UNIT/ML VIAL SQ SCH (21:27)
[2022-12-30] MEDS: GABAPENTIN 300 MG CAP PO SCH (21:29)
[2022-12-30] MEDS: HEPARIN SODIUM,PORCINE/PF 5,000 UNIT/0.5 ML SYRINGE SQ SCH (21:29)
[2022-12-30] MEDS: HYDROcodone/APAP 7.5-325MG 1 EACH TAB PO PRN (22:50)
[2022-12-31] MEDS: NITROGLYCERIN OINT 1 INCH/GM PACKET TOPICAL SCH ×5 (00:25→20:56)
[2022-12-31] MEDS: FERROUS SULFATE 325 MG TAB PO SCH ×2 (05:49→17:32)
[2022-12-31 05:52] LABS: Glucose,Whole Blood 107 mg/dL (70-110)
[2022-12-31] MEDS: INSULIN ASPART (NovoLOG) 100 UNIT/ML VIAL SQ SCH ×4 (06:00→20:56)
[2022-12-31] MEDS: CLOPIDOGREL 75 MG TAB PO SCH (08:41)
[2022-12-31] MEDS: EZETIMIBE 10 MG TAB PO SCH (08:41)
[2022-12-31] MEDS: GABAPENTIN 300 MG CAP PO SCH ×2 (08:41→20:53)
[2022-12-31] MEDS: PANTOPRAZOLE 40 MG TABLET PO SCH (08:41)
[2022-12-31] MEDS: DESVENLAFAXINE SUCCINATE 50 MG TAB.ER.24H PO SCH (08:42)
[2022-12-31] MEDS: DAPAGLIFLOZIN PROPANEDIOL 10 MG TABLET PO SCH (08:42)
[2022-12-31] MEDS: HEPARIN SODIUM,PORCINE/PF 5,000 UNIT/0.5 ML SYRINGE SQ SCH ×2 (08:43→20:51)
[2022-12-31] MEDS: FENOFIBRATE 160 MG TAB PO SCH (08:43)
[2022-12-31] MEDS: METOPROLOL SUCCINATE (ER) 100 MG TAB.ER.24H PO SCH (08:55)
[2022-12-31] MEDS: LOSARTAN 50 MG TAB PO SCH (08:55)
[2022-12-31] MEDS: HYDROcodone/APAP 7.5-325MG 1 EACH TAB PO PRN ×2 (08:56→18:44)
[2022-12-31] MEDS: amLODIPine 5 MG TAB PO SCH ×2 (08:59→20:53)
[2022-12-31] MEDS ORDERED: amLODIPine 5 MG TAB PO SCH (09:00)
[2022-12-31] MEDS ORDERED: ASPIRIN 325 MG TAB PO SCH (09:00)
--- NOTE | 2022-12-31 09:15 | P.HPIM ---
History of Present Illness H&P Date: 12/30/22 Chief Complaint: Chest pain/blurred vision 77-year-old female presenting to the emergency department with concerns for chest discomfort. Onset of symptoms was a few days ago. Patient has sometimes tightness or pressure in her chest that is waxing and waning. Discomfort cu rrently is 8/10. No radiation. Patient does have associated exertional dyspnea. Symptoms of chest discomfort also worsen with exertion. No nausea. No diaphoresis. Patient's blood pressure has been running high at home. Patient has had some persistent blurry vision out of her right eye. Patient states this is just lateral to the midline and encompasses around 20% of her vision. Patient states she is able to see through this area however it is blurry. No headache or weakness. Workup completed in ED reveals Glucose is 116 that. CRP is less than 0.5. CT head is reported as a few foci of hypodensity in the subcortical/deep white matter region of both the frontal lobe suggest changes of chronic small vessel ischemic disease. However not well seen on 03/16/2022. Otherwise no acute in tracranial abnormality seen. I personally reviewed CT and I agree to report. EKG reported as sinus rhythm. Normal EKG. No IV TPA since the patient's symptoms was 3 days ago and the risks outweigh the benefits. Review of Systems REVIEW OF SYSTEMS: CONSTITUTIONAL: No fever, no malaise, no fatigue. HEENT: No recent visual problems or hearing problems. Denied any sore throat. CARDIOVASCULAR: No chest pain, orthopnea, PND, no palpitations, no syncope. PULMONARY: No shortness of breath, no cough, no hemoptysis. GASTROINTESTINAL: No diarrhea, no nausea, no vomiting, no abdominal pain. NEUROLOGICAL: No headaches, no weakness, no numbness. HEMATOLOGICAL: Denies any bleeding or petechiae. GENITOURINARY: Denies any burning micturition, frequency, or urgency. MUSCULOSKELETAL/RHEUMATOLOGICAL: Denies any joint pain, swelling, or any muscle pain. ENDOCRINE: Denies any polyuria or polydipsia. The rest of the 14-point review of systems is negative. Past Medical History Past Medical History: Cancer, Chest Pain / Angina, Diabetes Mellitus, Eye Disorder, Fibromyalgia, GERD/Reflux, Hearing Disorder / Deafness, Hyperlipidemia, Hypertension, Liver Disease, Musculoskeletal Disorder, Oste oarthritis (OA), Pneumonia, Supraventricular Tachycardia (SVT) Additional Past Medical History / Comment(s): Intestinal adhesions, RESTLESS LEG, Hiatal Hernia, MENIERES, DIVERTICULITIS, GLAUCOMA - right eye, NEUROPATHY bilateral legs, hx anemia, irregular heartbeat, DDD, difficulty hearing certain tones, gout, hx skin cancer, fatty liver. History of Any Multi-Drug Resistant Organisms: None Reported Past Surgical History: Appendectomy, Bladder Surgery, Bowel Resection, Cholecystectomy, Ear Surgery, Heart Catheterization, Hernia Repair, Hysterectomy, Joint Replacement, Orthopedic Surgery, Tonsillectomy, Tubal Ligation Additional Past Surgical History / Comment(s): Direct Microlaryngoscopy and removal of left vocal cord mass, right breast biopsy, diagnostic laparoscopy with lysis of adhesions, bilateral knee replacements, bilateral cataracts removed with lens implants, TUBE IN RIGHT EAR FOR MENIERES, LEFT THUMB SURGERY, hiatal hernia repair, abdominal ventral hernia repair, EGD with dilation X3, spur removed from left heel, total right hip replacement. Past Anesthesia/Blood Transfusion Reactions: Previous Problems w/ Anesthesia, Motion Sickness, Postoperative Nausea & Vomiting (PONV) Additional Past Anesthesia/Blood Transfusion Reaction / Comment(s): STATES "DIFFICULT INTUBATION-JAW LOCKED UP AFTER A PREVIOUS INTUBATION". "Have to use child size tube so jaw doesn't lock up". 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 Difficult IV start. Past Psychological History: Anxiety, Depression Smoking Status: Former smoker Past Alcohol Use History: Rare Past Drug Use History: None Reported - Past Family History Brother(s) Family Medical History: Cancer Mother Family Medical History: Cancer, Deep Vein Thrombosis (DVT), Pulmonary Embolus Additional Family Medical History / Comment(s): STOMACH CANCER. Father Family Medical History: No Reported History Additional Family Medical History / Comment(s): COMMITTED SUICIDE. Medications and Allergies Home Medications Medication Instructions Recorded Confirmed Type Fenofibrate [Lofibra] 160 mg PO DAILY 11/17/18 12/30/22 History metFORMIN HCL [Glucophage] 1,000 mg PO BID 09/05/20 12/30/22 History Omeprazole 40 mg PO DAILY 10/14/20 12/30/22 History HYDROcodone/APAP 7.5-325MG [[place] 1.5 tab PO HS 05/02/21 12/30/22 History 7.5-325] Ezetimibe [Zetia] 10 mg PO DAILY 03/16/22 12/30/22 History rOPINIRole HCL [Requip] 0.5 mg PO BID 03/16/22 12/30/22 History Desvenlafaxine Succinate [Pristiq] 100 mg PO DAILY 04/07/22 12/30/22 History Gabapentin [Neurontin] 300 mg PO BID 04/07/22 12/30/22 History Vit C/E/Zn/Coppr/Lutein/Zeaxan 1 tab PO BID 04/07/22 12/30/22 History [Preservision Areds 2 Chew Tab] Losartan Potassium [Cozaar] 100 mg PO DAILY 04/28/22 12/30/22 History Dapagliflozin Propanediol [Farxiga] 10 mg PO DAILY 09/14/22 12/30/22 History Furosemide [Lasix] 20 mg PO Q48H 09/14/22 12/30/22 History HYDROcodone/APAP 7.5-325MG [[place] 1 tab PO BID PRN 09/14/22 12/30/22 History 7.5-325] Metoprolol Succinate (ER) [Toprol 100 mg PO DAILY 09/14/22 12/30/22 History XL] amLODIPine [Norvasc] 5 mg PO DAILY 09/14/22 12/30/22 History Ferrous Sulfate [Iron (65 MG 325 mg PO BID-W/MEALS 21 Days #42 09/27/22 12/30/22 Rx Elemental)] tab Allergies Allergy/AdvReac Type Severity Reaction Status Date / Time adhesive Allergy Rash/Hives Verified 12/30/22 12:50 Penicillins Allergy Rash/Hives Verified 12/30/22 12:50 Zgfawrj-QHD-JcV Reductase Allergy Rash/Hives Verified 12/30/22 12:50 Inhibitor [Jwogtpr-Ghk-Wuq Reductase Inhibitor] aspirin AdvReac STOMACH Verified 12/30/22 12:50 UPSET/HEARTBURN Physical Exam Vitals: Vital Signs Temp Pulse Resp BP Pulse Ox 12/30/22 13:27 68 18 153/85 94 L 12/30/22 13:20 67 14 153/85 95 12/30/22 13:10 68 26 H 153/85 94 L 12/30/22 13:00 66 17 145/70 94 L 12/30/22 12:50 65 22 145/70 95 12/30/22 12:40 66 18 145/70 96 12/30/22 12:30 64 22 173/81 95 12/30/22 12:20 60 22 173/81 95 12/30/22 12:10 60 25 H 173/81 96 12/30/22 12:00 66 16 171/96 96 12/30/22 11:50 62 9 L 171/96 97 12/30/22 11:40 66 47 H 171/96 98 12/30/22 11:30 58 L 19 178/93 96 12/30/22 11:22 58 L 18 178/93 97 12/30/22 11:20 60 17 161/91 97 12/30/22 11:19 57 L 18 178/93 95 12/30/22 11:10 57 L 20 161/91 96 12/30/22 11:00 62 16 173/96 94 L 12/30/22 10:50 58 L 16 173/96 94 L 12/30/22 10:49 60 16 173/96 94 L 12/30/22 10:40 59 L 7 L 96 12/30/22 10:30 175/87 12/30/22 10:20 175/87 12/30/22 10:10 65 11 L 175/87 95 12/30/22 10:06 98 F 76 16 180/80 98 12/30/22 10:00 64 25 H 180/88 94 L 12/30/22 09:50 63 23 12/30/22 09:48 63 29 H 12/30/22 09:31 97.9 F 71 18 162/92 95 Intake and Output 12/29/22 12/30/22 12/30/22 22:59 06:59 14:59 Other: Weight 82.554 kg PHYSICAL EXAMINATION: GENERAL: The patient is alert and oriented x3, not in any acute distress. Well developed, well nourished. HEENT: Pupils are round and equally reacting to light. EOMI. No scleral icterus. No conjunctival pallor. Normocephalic, atraumatic. No pharyngeal erythema. No thyromegaly. CARDIOVASCULAR: S1 and S2 present. No murmurs, rubs, or gallops. PULMONARY: Chest is clear to auscultation, no wheezing or crackles. ABDOMEN: Soft, nontender, nondistended, normoactive bowel sounds. No palpable organomegaly. MUSCULOSKELETAL: No joint swelling or deformity. EXTREMITIES: No cyanosis, clubbing, or pedal edema. NEUROLOGICAL: Gross neurological examination did not reveal any focal deficits. SKIN: No rashes. Results CBC & Chem 7: 12/30/22 10:06 12/30/22 10:06 Labs: Abnormal Lab Results - Last 24 Hours (Table) 12/30/22 12/30/22 12/30/22 Range/Units 10:06 10:06 10:06 MCV 78.9 L (80.0-100.0) fL D-Dimer (<0.60) mg/L FEU BUN 23 H (7-17) mg/dL Glucose 116 H (74-99) mg/dL Urine Protein Trace H (Negative) Urine Glucose (UA) 4+ H (Negative) Ur Leukocyte Esterase Small H (Negative) Urine WBC 12 H (0-5) /hpf Urine Bacteria Few H (None) /hpf 12/30/22 Range/Units 10:06 MCV (80.0-100.0) fL D-Dimer 2.10 H (<0.60) mg/L FEU BUN (7-17) mg/dL Glucose (74-99) mg/dL Urine Protein (Negative) Urine Glucose (UA) (Negative) Ur Leukocyte Esterase (Negative) Urine WBC (0-5) /hpf Urine Bacteria (None) /hpf Assessment and Plan Assessment: 1. Chest pain rule out acute coronary syndrome - Patient denies any further chest pain; we will admit to telemetry and monitor EKG and trend troponin; sublingual nitroglycerin for episodes of chest pain - Recommend 2-D echo; cardiology consulted 2. Blurred vision; probable acute ischemic stroke - Patient was discussed with neurology from ED; not a candidate for TPA given patient being outside TPA window - -Nephrology recommending to start patient on aspirin 325 mg daily which was discontinued due to intolerance; patient is placed on Plavix 75 mg daily; no statin therapy due to ALLERGY to statins - MRI of the brain is ordered along with carotid Doppler, 2-D echo, hemoglobin A1c, TSH and ESR for further workup of giant cell arteritis possibility of which is slow; patient to be started on prednisone if ESR was elevated chest x-ray - Consult PT/OT - Ophthalmology is consulted to rule out any eye disease 3. UTI; UA reveals few bacteria, WBCs and electrolyte esterase; we will start patient on Rocephin 1 g IV daily with further recommendations once urine culture is available 4. Elevated d-dimer/ abnormal CTA; patient underwent CTA chest and PE was ruled out; it does reveal pulmonary nodules on right side measuring up to 7 mm; patient is recommended follow-up CT of the chest in 6 months for reevaluation 5. Mild DELFINA; slow IV fluid hydration with normal saline at rate of 75 mL an hour; we will monitor strict GINA's, daily weights, renal function and electrolytes; avoid nephrotoxins and hypotension 6. Hypertension; metoprolol 100 mg daily; losartan 100 mg daily 7. Hyperlipidemia; currently on Zetia 10 mg daily; fenofibrate 160 mg daily 8. Diabetes mellitus without long-term insulin use; we will monitor Accu-Cheks before meals and at bedtime with insulin sliding scale 9. Anxiety/depression; Pristiq 100 mg daily 10. Fibromyalgia/severe osteoarthritis; continue with home dose of [place] 7.5 mg as needed DVT prophylaxis; SCDs/subcu heparin CODE STATUS; full code
[2022-12-31 09:33] LABS: Basophils % (A) 1 %; Eosinophils # (A) 0.2 k/uL (0-0.7); Eosinophils % (A) 4 %; HCT 41.6 % (34.0-46.0); HGB 13.3 gm/dL (11.4-16.0); Lymphocytes # (A) 1.9 k/uL (1.0-4.8); Lymphocytes % (A) 37 %; MCH 25.3 pg (25.0-35.0); Mean Platelet Volume 8.8; Monocytes # (A) 0.2 k/uL (0-1.0); Monocytes % (A) 5 %; Neutrophils # (A) 2.6 k/uL (1.3-7.7); Neutrophils % (A) 51 %; Platelet Count 204 k/uL (150-450); RBC 5.27 m/uL (3.80-5.40); RDW 15.5 % (11.5-15.5); WBC 5.1 k/uL (3.8-10.6)
[2022-12-31 09:45] LABS: African American GFR (CKD) >90 (>60 ml/min/1.73 sqM); Anion Gap 10 mmol/L; Blood Urea Nitrogen 22 mg/dL (7-17); Calcium 9.7 mg/dL (8.4-10.2); Carbon Dioxide 26 mmol/L (22-30); Chloride 105 mmol/L (98-107); Glucose 119 mg/dL (74-99); Non-African American GFR(CKD) 89 (>60 ml/min/1.73 sqM); Potassium 3.8 mmol/L (3.5-5.1); Sodium 141 mmol/L (137-145)
--- NOTE | 2022-12-31 10:14 | P.PN ---
Subjective Progress Note Date: 12/31/22 The patient seen at bedside in and states the she continues to have blurry vision over the right eye. Denies of any new neurological issues. She states for past couple months she's been having numbness and bilateral hands to sense all bolus and at nighttime she has to shake her hands. Otherwise no other neurological issues. Denies of any headaches. Objective - Vital Signs Vital signs: Vital Signs Temp 98.1 F 12/31/22 07:00 Pulse 63 12/31/22 07:00 Resp 17 12/31/22 07:00 BP 175/84 12/31/22 07:00 Pulse Ox 95 12/31/22 07:00 FiO2 Intake & Output 12/30/22 12/31/22 12/31/22 18:59 06:59 18:59 Intake Total 120 Balance 120 Weight 82.554 kg Intake: Oral 120 Other: Voiding Method Toilet Toilet # Voids 2 - Exam GENERAL: The patient is sitting in a recliner chair and is not in acute distress. NEUROLOGICAL: Higher mental function: The patient is awake, alert, oriented to self, place and time. Patient is following commands. No aphasia and no neglect. Cranial nerves: The pupils are round, equal and reactive to light and accommodation. Visual lnae are full to confrontation throughout. [place] she has blurry vision over the left side of eye. Her iris over right eye has petechial spot. Extraocular movement is intact no nystagmus is noted. Facial sensation is normal to touch throughout. The facial strength is normal throughout. Hearing is normal bilaterally to hand rub. Tongue is midline and moved [id number] without any difficulty. No dysarthria is noted. Shoulder shrug is normal bilaterally. Motor: The strength is 5 over 5 throughout. Normal tone and bulk. Cerebellum: Normal finger to nose bilaterally. Sensation: Sensation is normal to touch throughout. Reflexes (right/left):1+ throughout. Plantars are downgoing bilaterally. Some other workup during his hospital visit consisted of: Initial blood pressure is 162/90 2 repeat it is a 180/88. Glucose is 116 that. CRP is less than 0.5.ESR 4. TSH is 1.560. CT head is reported as a few foci of hypodensity in the subcortical/deep white matter region of both the frontal lobe suggest changes of chronic small vessel ischemic disease. However not well seen on 03/16/2022. Otherwise no acute intracranial abnormality seen. I personally reviewed CT and I agree to report. EKG reported as sinus rhythm. Normal EKG. Carotid duplexes reported as less than 50% stenosis bilateral carotid bifurcation. - Labs CBC & Chem 7: 12/31/22 09:11 12/31/22 09:11 Labs: Abnormal Lab Results - Last 24 Hours (Table) 12/30/22 12/30/22 12/30/22 Range/Units 10:06 10:06 10:06 MCV 78.9 L (80.0-100.0) fL D-Dimer (<0.60) mg/L FEU BUN 23 H (7-17) mg/dL Glucose 116 H (74-99) mg/dL POC Glucose (mg/dL) (70-110) mg/dL Hemoglobin A1c (0.0-6.0) % Urine Protein Trace H (Negative) Urine Glucose (UA) 4+ H (Negative) Ur Leukocyte Esterase Small H (Negative) Urine WBC 12 H (0-5) /hpf Urine Bacteria Few H (None) /hpf 12/30/22 12/30/22 12/30/22 Range/Units 10:06 10:06 21:18 MCV (80.0-100.0) fL D-Dimer 2.10 H (<0.60) mg/L FEU BUN (7-17) mg/dL Glucose (74-99) mg/dL POC Glucose (mg/dL) 121 H (70-110) mg/dL Hemoglobin A1c 6.2 H (0.0-6.0) % Urine Protein (Negative) Urine Glucose (UA) (Negative) Ur Leukocyte Esterase (Negative) Urine WBC (0-5) /hpf Urine Bacteria (None) /hpf 12/31/22 12/31/22 Range/Units 09:11 09:11 MCV 79.0 L (80.0-100.0) fL D-Dimer (<0.60) mg/L FEU BUN 22 H (7-17) mg/dL Glucose 119 H (74-99) mg/dL POC Glucose (mg/dL) (70-110) mg/dL Hemoglobin A1c (0.0-6.0) % Urine Protein (Negative) Urine Glucose (UA) (Negative) Ur Leukocyte Esterase (Negative) Urine WBC (0-5) /hpf Urine Bacteria (None) /hpf Assessment and Plan Assessment: Is a 77-year-old woman who presented because of a vision loss over the right eye and it started about 3 days ago and feels some improvement. She feels mostly over the central and blurry vision over the left side of the right eye. Acute visual disturbance over the right eye: Probable Acute ischemic stroke. Is not giant cell arteritis (ESR and CRP are normal and no from history does not appear). Rule out other eye issues. Chest pain Hypertension Diabetes mellitus Plan: She cannot tolerate aspirin. Continue Plavix 75 mg daily. She has ALLERGIES to statins. She is on home medication of fenofibrate Pending MRI of the brain, 2-D echo, hemoglobin A1c. Neuro checks every 4 hours On cardiac monitoring Resulted PT and OT Cardiology is consulted Ophthalmology team is consulted. I highly recommended the patient receives EMG with nerve conduction study of the upper extremities since she'll likely she has carpal tunnel syndrome. If she continues to have severe symptoms I would recommend the patient to be started on gabapentin 100 mg 1 tablet 3 times a day doesn't help can go up to 300 mg 4 tablets 3 times a day. We'll defer the rest of the medical management to primary team For DVT prophylaxis: On subcu heparin 5000 units every 12 hours. Plan discussed with the patient and her nurse. Dr. oSn will start neurology service tomorrow A.M. Time with Patient: Less than 30
[2022-12-31] MEDS: TROPICAMIDE 1% OPHTH DROPS 2 ML BTL RIGHT EYE SCH ×6 (10:52→17:34)
[2022-12-31 12:07] LABS: Glucose,Whole Blood 115 mg/dL (70-110)
[2022-12-31] MEDS ORDERED: SODIUM CHLORIDE 0.9% 500 ML 500 ML IV ONE (12:49)
[2022-12-31] MEDS ORDERED: LIDOCAINE 1% INJ 10MG/ML (20 ML MDV) SQ ONE (12:56)
--- NOTE | 2022-12-31 13:11 | P.EPPROC ---
- EP Procedure Note Electrophysiology Procedure Note: Loop monitor implant Primary physicians: Project Architect: Brigida Astorga Gomer Indication: Recurrent presyncope and occasional episodes of loss of consciousness, being worked up for a TIA Patient was brought to the EP lab in a fasting state. Written informed consent was obtained prior to the procedure. The left pectoral area was prepped and draped per protocol. Intravenous antibiotic was administered preoperatively. A subcutaneous Loop monitor was implanted successfully and the wound was closed per protocol. The device was programmed to detect significant bárbara- arrhythmic and tachy-arrhythmic events, per protocol. Device and programming details: Syncope protocol
[2022-12-31 13:41] LABS: Chol/HDL Ratio 4.21 Ratio; LDL Cholesterol,Calculated 105.9 mg/dL (0.0-131.0)
--- NOTE | 2022-12-31 15:23 | P.PN ---
Subjective Progress Note Date: 12/31/22 The patient is a 77-year-old female who follows in the office with Dr. Her. She initially presented to the hospital with visual disturbances. She also states she had been experiencing intermittent episodes of dizziness and lightheadedness that will cause chest tightness. She states this had been occurring over the course of the last week. DIAGNOSTICS: EKG shows sinus mechanism without ST or T-wave abnormalities Telemetry has shown sinus rhythm without any tachycardia or bradycardia arrhythmias Chest x-ray showed no acute cardiopulmonary process CT of the brain showed a few foci of hypodensity in the subcortical deep white matter regions of frontal lobes, suggesting chronic small vessel disease Computed tomography scan of the chest shows no evidence of pulmonary emboli Carotid Doppler shows mild disease bilaterally Lab data:WBC 5.1, hemoglobin 13.3, hematocrit 3041.6, platelet 204, sodium 141, potassium 3.8, BUN 22, creatinine 0.61, hemoglobin A1c 6.3, troponin less than 0.012, BNP 117, triglycerides 336, LDL 105, HDL 53 REVIEW OF SYSTEMS: No fever or chills. No cough or expectoration. No diaphoresis. Patient denies any stomach discomfort. No nausea, vomiting. No hematochezia. No hematemesis. Denies any black stools or blood in his stools. Denies dysuria or hematuria. No muscle weakness or numbness. Negative for chest pain currently. No dyspnea or orthopnea. Positive for visual disturbances. Positional dizziness. PHYSICAL EXAMINATION: This is a []-year-old [] in no apparent distress at the time of my examination. HEENT: Head is atraumatic, normocephalic. Pupils are equal, round. Sclerae anicteric. Conjunctivae are clear. Mucous membranes of the mouth are moist. Neck is supple. There is no jugular venous distention. No carotid bruit is heard. CHEST EXAMINATION: Lungs are clear to auscultation. No chest wall tenderness is noted on palpation or with deep breathing. HEART EXAMINATION: Heart regular rate and rhythm. S1, S2 heard. No murmurs, gallops or rub. ABDOMEN: Soft, nontender. Bowel sounds are heard. No organomegaly noted. EXTREMITIES: 2+ peripheral pulses with no evidence of peripheral edema and no calf tenderness noted. NEUROLOGIC EXAMINATION: Patient is awake, alert and oriented x3. FINAL ASSESSMENT AND PLAN: Dizziness with visual disturbances, likely TIA Chest discomfort, ACS workup unremarkable History of Mnire's disease Hyperlipidemia, history of statin intolerance Prediabetic Hypertension, worse in small business representative hours PLAN: Recommend Loop monitor implant for recurrent dizziness and presyncope, as well as recent diagnosis Add amlodipine 5 mg daily for hypertension Outpatient PCSK9 inhibitors Further recommendations to be based on clinical course I am dictating on behalf of Dr Hira Pizarro's history/physical and assessment/p [facility]. Objective - Vital Signs Vital signs: Vital Signs Temp 97.5 F L 12/31/22 13:20 Pulse 55 L 12/31/22 14:29 Resp 16 12/31/22 14:29 BP 112/72 12/31/22 14:29 Pulse Ox 95 12/31/22 14:29 FiO2 Intake & Output 12/30/22 12/31/22 12/31/22 18:59 06:59 18:59 Intake Total 120 342 Balance 120 342 Weight 82.554 kg Intake: IV 106 Oral 120 236 Other: Voiding Method Toilet Toilet Toilet # Voids 2 1 - Labs CBC & Chem 7: 12/31/22 09:11 12/31/22 09:11 Labs: Abnormal Lab Results - Last 24 Hours (Table) 12/30/22 12/30/22 12/31/22 Range/Units 10:06 21:18 09:11 MCV (80.0-100.0) fL BUN (7-17) mg/dL Glucose (74-99) mg/dL POC Glucose (mg/dL) 121 H (70-110) mg/dL Hemoglobin A1c 6.2 H 6.3 H (0.0-6.0) % Triglycerides (0.00-149.00) mg/dL Cholesterol (0.00-200.00) mg/dL VLDL Cholesterol, Calc (5.00-40.00) mg/dL 12/31/22 12/31/22 12/31/22 Range/Units 09:11 09:11 12:06 MCV 79.0 L (80.0-100.0) fL BUN 22 H (7-17) mg/dL Glucose 119 H (74-99) mg/dL POC Glucose (mg/dL) 115 H (70-110) mg/dL Hemoglobin A1c (0.0-6.0) % Triglycerides 336.00 H (0.00-149.00) mg/dL Cholesterol 227.00 H (0.00-200.00) mg/dL VLDL Cholesterol, Calc 67.20 H (5.00-40.00) mg/dL
[2022-12-31 17:22] LABS: Glucose,Whole Blood 120 mg/dL (70-110)
--- NOTE | 2022-12-31 17:48 | CA ---
Transthoracic Echo Report Name: Karolina Augustin Age: 77 Gender: F : 1945 Exam Date: 12/31/2022 10:17 Exam Location: [place] [facility] Ht (in): 63 Wt (lb): 182 Ordering Physician: John Riddle MD Attending/Referring Phys: Manager Secondary Alycia Deras RDCS Procedure CPT: Indications: stroke Cardiac Hx: Technical Quality: Fair Contrast 1: Total Dose (mL): Contrast 2: Total Dose (mL): MEASUREMENTS (Male / Female) Normal Values 2D ECHO LV Diastolic Diameter PLAX 3.3 cm 4.2 - 5.9 / 3.9 - 5.3 cm LV Systolic Diameter PLAX 1.6 cm IVS Diastolic Thickness 1.2 cm 0.6 - 1.0 / 0.6 - 0.9 cm LVPW Diastolic Thickness 1.1 cm 0.6 - 1.0 / 0.6 - 0.9 cm LV Relative Wall Thickness 0.7 RV Internal Dim ED PLAX 3.4 cm LA Volume 68.2 cm??? 18 - 58 / 22 - 52 cm??? M-MODE Aortic Root Diameter MM 2.7 cm LA Systolic Diameter MM 4.7 cm LA Ao Ratio MM 1.7 AV Cusp Separation MM 1.7 cm DOPPLER AV Peak Velocity 197.2 cm/s AV Peak Gradient 15.6 mmHg AV Mean Velocity 140.7 cm/s AV Mean Gradient 8.8 mmHg AV Velocity Time Integral 44.4 cm LVOT Peak Velocity 133.4 cm/s LVOT Peak Gradient 7.1 mmHg LVOT Velocity Time Integral 31.0 cm MV Area PHT 2.5 cm??? Mitral E Point Velocity 137.6 cm/s Mitral A Point Velocity 123.1 cm/s Mitral E to A Ratio 1.1 MV Deceleration Time 302.2 ms MV E' Velocity 5.9 cm/s Mitral E to MV E' Ratio 23.4 TR Peak Velocity 278.5 cm/s TR Peak Gradient 31.0 mmHg Right Ventricular Systolic Press 35.9 mmHg FINDINGS Left Ventricle Mildly increased left ventricular wall thickness. Normal left ventricular systolic function with no obvious regional wall motion abnormalities. Left ventricular ejection fraction is estimated at 55-60 %. Right Ventricle Normal right ventricular size and function. Mild pulmonary hypertension. Right Atrium Normal right atrial size. Left Atrium Moderately increased left atrial volume. Mildly increased left atrial area. Mitral Valve Structurally normal mitral valve. [id number] mitral regurgitation. Aortic Valve Trileaflet aortic valve. No aortic valve stenosis or regurgitation. Aortic valve sclerosis. Tricuspid Valve Structurally normal tricuspid valve. Mild tricuspid regurgitation. Pulmonic Valve Trace pulmonic regurgitation. Pericardium No pericardial effusion. Aorta Normal size aortic root and proximal ascending aorta. CONCLUSIONS LV systolic function thickened aortic valve leaflets without significant stenosis [id number] mitral regurgitation Previewed by: Dr. Hira Pizarro MD (Electronically Signed) Final Date: 31 Dec 2022 17:47
--- NOTE | 2022-12-31 18:15 | MR ---
EXAMINATION TYPE: MR brain wo con DATE OF EXAM: 12/31/2022 COMPARISON: CT brain 12/30/2022 HISTORY: Right sided vision loss, evaluate for stroke. CONTRAST: Performed utilizing 0 mL intravenous Gadavist gadolinium contrast. TECHNIQUE: Multiplanar, multiecho imaging on a 3.0 Sofi magnet is performed through the brain. Stud y is performed within 24 hours of arrival to the hospital. The craniovertebral junction is normal. The pituitary is normal. Diffusion-weighted imaging is performed. No abnormal hyperintensity is present to suggest an acute i ntracranial infarct or acute ischemic change. There are couple of hyperintensities on T2-weighted sequences. These are hypointense on T1-weighted i mages. Small old lacunar infarcts may be present. Ventricles and sulci are mildly prominent for the patient age. IMPRESSIONS: 1. Nonspecific chronic appearing white matter changes. 2. Couple of small centrum semiovale lacunar infarcts may be present. 3. No acute intracranial process.
--- NOTE | 2022-12-31 20:07 | CONS ---
CONSULTATION CHIEF COMPLAINT: High blood pressure, blurry vision, and signs of ministroke. HISTORY OF PRESENT ILLNESS: The patient states that her vision became blurry in the right eye in the last 4 days, was admitted in the hospital for stroke workup and to control her high blood pressure. PAST SURGICAL HISTORY: Reviewed. PAST/PRESENT MEDICAL HISTORY: Reviewed from the chart. IMAGING: All reviewed. PHYSICAL EXAMINATION: EYES: Vision; right eye 20/200, left eye 20/40. Extraocular motility full. Pupils, the right eye was dilated by drops to check the retina. Confrontation, the patient has a total blur with more blur in the center vision. Left eye confrontation was normal. Lens clear. Retina shows cup-to-disc ratio of 0.9%. Intraocular pressure 28 mmHg in the right and 16 mmHg in the left. Peripheral retina was normal with no retinal detachment or holes. Blood vessel shows hypertensive retinopathy grade 2 to 3. ASSESSMENT: 1. Right visual disturbance. 2. Right primary open-angle glaucoma. 3. Hypertensive retinopathy. 4. Possible macular pathology. PLAN: I understand the patient will be dismissed tomorrow. I informed the patient to be in our office on Monday at 8 a.m. to do OCT macula and visual field and to repeat fundus examination. I have also started the patient on Xalatan 1 drop once a day to the right eye to control the elevated eye pressure in the right eye. Feel free to contact me if you have any questions. MMODL / IJN: [id number] /
[2022-12-31 20:56] LABS: Glucose,Whole Blood 119 mg/dL (70-110)
[2022-12-31] MEDS ORDERED: LATANOPROST 0.005% OPHTH DROPS 2.5 ML BTL RIGHT EYE SCH (21:00)
[2023-01-01 05:55] LABS: Glucose,Whole Blood 95 mg/dL (70-110)
[2023-01-01] MEDS: INSULIN ASPART (NovoLOG) 100 UNIT/ML VIAL SQ SCH ×3 (05:55→18:11)
[2023-01-01] MEDS: FERROUS SULFATE 325 MG TAB PO SCH (06:08)
[2023-01-01] MEDS ORDERED: CLINDAMYCIN 900 MG in DEXTROSE 5% IN WATER 50 ML IVPB PRN ×2 (07:00)
[2023-01-01] MEDS ORDERED: ACETAMINOPHEN TAB 325 MG TAB PO PRN (07:53)
[2023-01-01] MEDS ORDERED: FUROSEMIDE 20 MG TAB PO SCH (09:00)
[2023-01-01] MEDS: LOSARTAN 50 MG TAB PO SCH (09:07)
[2023-01-01] MEDS: GABAPENTIN 300 MG CAP PO SCH (09:07)
[2023-01-01] MEDS: PANTOPRAZOLE 40 MG TABLET PO SCH (09:07)
[2023-01-01] MEDS: HYDROcodone/APAP 7.5-325MG 1 EACH TAB PO PRN (09:07)
[2023-01-01] MEDS: amLODIPine 5 MG TAB PO SCH (09:07)
[2023-01-01] MEDS: HEPARIN SODIUM,PORCINE/PF 5,000 UNIT/0.5 ML SYRINGE SQ SCH (09:08)
[2023-01-01] MEDS: CLOPIDOGREL 75 MG TAB PO SCH (09:08)
[2023-01-01] MEDS: EZETIMIBE 10 MG TAB PO SCH (09:08)
[2023-01-01] MEDS: DAPAGLIFLOZIN PROPANEDIOL 10 MG TABLET PO SCH (09:49)
[2023-01-01] MEDS: METOPROLOL SUCCINATE (ER) 100 MG TAB.ER.24H PO SCH (09:49)
[2023-01-01] MEDS: FENOFIBRATE 160 MG TAB PO SCH (09:49)
[2023-01-01] MEDS: DESVENLAFAXINE SUCCINATE 50 MG TAB.ER.24H PO SCH (09:49)
--- NOTE | 2023-01-01 09:59 | P.PN ---
Subjective Progress Note Date: 01/01/23 Patient initially seen by Dr. Nilton Riddle. Please refer to his note for details. Patient is a 77-year-old female with visual disturbance right eye, rule out CVA. Stroke workup needs to follow-up. ESR and CRP are normal. Ophthalmology also on board. Patient believes her symptoms are better. Denies any chest pain. Vision is no better or worse. Denies any other symptoms. Some other workup during his hospital visit consisted of: Initial blood pressure is 162/90 2 repeat it is a 180/88. Glucose is 116 that. CRP is less than 0.5.ESR 4. TSH is 1.560. CT head is reported as a few foci of hypodensity in the subcortical/deep white matter region of both the frontal lobe suggest changes of chronic small vessel ischemic disease. However not well seen on 03/16/2022. Otherwise no acute intracranial abnormality seen. I personally reviewed CT and I agree to report. EKG reported as sinus rhythm. Normal EKG. Carotid duplexes reported as less than 50% stenosis bilateral carotid bifurcation. Objective - Vital Signs Vital signs: Vital Signs Temp 98 F 01/01/23 07:00 Pulse 60 01/01/23 07:00 Resp 17 01/01/23 07:00 BP 167/81 01/01/23 07:00 Pulse Ox 94 L 01/01/23 07:00 FiO2 Intake & Output 12/31/22 01/01/23 01/01/23 18:59 06:59 18:59 Intake Total 460 236 Balance 460 236 Intake: IV 106 Oral 354 236 Other: Voiding Method Toilet Toilet # Voids 1 1 - Exam Patient's mental status, speech and language functions are normal. Cranial nerves significant for monocular decreased vision, right lower quadrant, only involving the right eye, not involving the left side. Pupils are equal, round and reactive to light Face is symmetric. Tongue protrudes the midline. On muscle strength testing there is no pronator drift and the strength is normal in arms and legs. No ataxia. Sensations equal. - Labs CBC & Chem 7: 12/31/22 09:11 12/31/22 09:11 Labs: Abnormal Lab Results - Last 24 Hours (Table) 12/31/22 12/31/22 12/31/22 Range/Units 09:11 09:11 12:06 BUN 22 H (7-17) mg/dL Glucose 119 H (74-99) mg/dL POC Glucose (mg/dL) 115 H (70-110) mg/dL Hemoglobin A1c 6.3 H (0.0-6.0) % Triglycerides 336.00 H (0.00-149.00) mg/dL Cholesterol 227.00 H (0.00-200.00) mg/dL VLDL Cholesterol, Calc 67.20 H (5.00-40.00) mg/dL 12/31/22 12/31/22 Range/Units 17:21 20:55 BUN (7-17) mg/dL Glucose (74-99) mg/dL POC Glucose (mg/dL) 120 H 119 H (70-110) mg/dL Hemoglobin A1c (0.0-6.0) % Triglycerides (0.00-149.00) mg/dL Cholesterol (0.00-200.00) mg/dL VLDL Cholesterol, Calc (5.00-40.00) mg/dL Assessment and Plan Assessment: Patient is a 77-year-old woman who presented because of a vision loss over the right eye and it started about 3 days [employer] ATTEND[employer] and feels some improvement. She feels mostly over the central and blurry vision over the nasal side of the right eye. Acute visual disturbance over the right eye: Probable Acute ischemic stroke. Is not giant cell arteritis (ESR and CRP are normal). Rule out other eye issues. Chest pain Hypertension Diabetes mellitus Plan: She cannot tolerate aspirin. Continue Plavix 75 mg daily. Patient was not on any antiplatelet medication at home. Lipid panel with cholesterol 227, LDL 105, HDL 53, triglycerides 336. Patient is ALLERGIES to statins. Patient states she breaks out in rash. May consider adding newer agent as outpatient. Continue fenofibrate 160 mg daily. MRI of the brain revealed nonspecific chronic-appearing white matter changes. Couple of small centrum semiovale old lacunar infarcts may be present. No acute intracranial process. I personally reviewed MRI, agree with the findings. 2-D echo revealed mildly increased left-ventricular wall thickness. EF is 55- 60%. Moderately increased left atrial volume, mild to moderate MR. Carotid Doppler revealed less than 25% stenosis bilateral ICA. Antegrade flow in both vertebral arteries. Hemoglobin A1c 6.3. Cardiology also on board Ophthalmology team is consulted. Appreciate input. Suspecting macular disease. Recommending patient follow up with integrated circuit layout designer, tomorrow on Monday. Dr. John Riddle has recommended the patient receives EMG with nerve conduction study of the upper extremities since she'll likely she has carpal tunnel s yndrome. If she continues to have severe symptoms I would recommend the patient to be started on gabapentin 100 mg 1 tablet 3 times a day doesn't help can go up to 300 mg 4 tablets 3 times a day. We'll defer the rest of the medical management to primary team For DVT prophylaxis: On subcu heparin 5000 units every 12 hours. Neurologically clear for discharge. Recommend follow-up with integrated circuit layout designer as an outpatient on Monday, as per ophthalmology consultation.
--- NOTE | 2023-01-01 11:34 | P.PN ---
Subjective Progress Note Date: 12/31/22 77-year-old female presenting to the emergency department with concerns for chest discomfort. Onset of symptoms was a few days ago. Patient has sometimes tightness or pressure in her chest that is waxing and waning. Discomfort currently is 8/10. No radiation. Patient does have associated exertional d yspnea. Symptoms of chest discomfort also worsen with exertion. No nausea. No diaphoresis. Patient's blood pressure has been running high at home. Patient has had some persistent blurry vision out of her right eye. Patient states this is just lateral to the midline and encompasses around 20% of her vision. Patient states she is able to see through this area however it is blurry. No headache or weakness. Workup completed in ED reveals Glucose is 116 that. CRP is less than 0.5. CT head is reported as a few foci of hypodensity in the subcortical/deep white matter region of both the frontal lobe suggest changes of chronic small vessel ischemic disease. However not well seen on 03/16/2022. Otherwise no acute intracranial abnormality seen. I personally reviewed CT and I agree to report. EKG reported as sinus rhythm. Normal EKG. No IV TPA since the patient's symptoms was 3 days ago and the risks outweigh the benefits. Objective - Vital Signs Vital signs: Vital Signs Temp 98.1 F 12/31/22 07:00 Pulse 63 12/31/22 07:00 Resp 17 12/31/22 07:00 BP 175/84 12/31/22 07:00 Pulse Ox 95 12/31/22 07:00 FiO2 Intake & Output 12/30/22 12/31/22 12/31/22 18:59 06:59 18:59 Intake Total 120 Balance 120 Weight 82.554 kg Intake: Oral 120 Other: Voiding Method Toilet Toilet # Voids 2 - Exam GENERAL: The patient is alert and oriented x3, not in any acute distress. Well developed, well nourished. HEENT: Pupils are round and equally reacting to light. EOMI. No scleral icterus. No conjunctival pallor. Normocephalic, atraumatic. No pharyngeal erythema. No thyromegaly. CARDIOVASCULAR: S1 and S2 present. No murmurs, rubs, or gallops. PULMONARY: Chest is clear to auscultation, no wheezing or crackles. ABDOMEN: Soft, nontender, nondistended, normoactive bowel sounds. No palpable organomegaly. MUSCULOSKELETAL: No joint swelling or deformity. EXTREMITIES: No cyanosis, clubbing, or pedal edema. NEUROLOGICAL: Gross neurological examination did not reveal any focal deficits. SKIN: No rashes. - Labs CBC & Chem 7: 12/31/22 09:11 12/31/22 09:11 Labs: Abnormal Lab Results - Last 24 Hours (Table) 12/30/22 12/30/22 12/30/22 Range/Units 10:06 10:06 10:06 MCV 78.9 L (80.0-100.0) fL D-Dimer (<0.60) mg/L FEU BUN 23 H (7-17) mg/dL Glucose 116 H (74-99) mg/dL POC Glucose (mg/dL) (70-110) mg/dL Hemoglobin A1c (0.0-6.0) % Urine Protein Trace H (Negative) Urine Glucose (UA) 4+ H (Negative) Ur Leukocyte Esterase Small H (Negative) Urine WBC 12 H (0-5) /hpf Urine Bacteria Few H (None) /hpf 12/30/22 12/30/22 12/30/22 Range/Units 10:06 10:06 21:18 MCV (80.0-100.0) fL D-Dimer 2.10 H (<0.60) mg/L FEU BUN (7-17) mg/dL Glucose (74-99) mg/dL POC Glucose (mg/dL) 121 H (70-110) mg/dL Hemoglobin A1c 6.2 H (0.0-6.0) % Urine Protein (Negative) Urine Glucose (UA) (Negative) Ur Leukocyte Esterase (Negative) Urine WBC (0-5) /hpf Urine Bacteria (None) /hpf Assessment and Plan Assessment: 1. Chest pain rule out acute coronary syndrome - Patient denies any further chest pain; we will admit to telemetry and monitor EKG and trend troponin; sublingual nitroglycerin for episodes of chest pain - Recommend 2-D echo; cardiology consulted 2. Blurred vision; probable acute ischemic stroke - Patient was discussed with neurology from ED; not a candidate for TPA given patient being outside TPA window - -Nephrology recommending to start patient on aspirin 325 mg daily which was discontinued due to intolerance; patient is placed on Plavix 75 mg daily; no statin therapy due to ALLERGY to statins - MRI of the brain is ordered along with carotid Doppler, 2-D echo, hemoglobin A1c, TSH and ESR for further workup of giant cell arteritis possibility of which is slow; patient to be started on prednisone if ESR was elevated chest x-ray - Consult PT/OT - Ophthalmology is consulted to rule out any eye disease 3. UTI; UA reveals few bacteria, WBCs and electrolyte esterase; we will start patient on Rocephin 1 g IV daily with further recommendations once urine culture is available 4. Elevated d-dimer/ abnormal CTA; patient underwent CTA chest and PE was ruled out; it does reveal pulmonary nodules on right side measuring up to 7 mm; patient is recommended follow-up CT of the chest in 6 months for reevaluation 5. Mild DELFINA; slow IV fluid hydration with normal saline at rate of 75 mL an hour; we will monitor strict GINA's, daily weights, renal function and electrolytes; avoid nephrotoxins and hypotension 6. Hypertension; metoprolol 100 mg daily; losartan 100 mg daily 7. Hyperlipidemia; currently on Zetia 10 mg daily; fenofibrate 160 mg daily 8. Diabetes mellitus without long-term insulin use; we will monitor Accu-Cheks before meals and at bedtime with insulin sliding scale 9. Anxiety/depression; Pristiq 100 mg daily 10. Fibromyalgia/severe osteoarthritis; continue with home dose of [place] 7.5 mg as needed DVT prophylaxis; SCDs/subcu heparin CODE STATUS; full code
[2023-01-01 12:06] LABS: Glucose,Whole Blood 103 mg/dL (70-110)
[2023-01-01] MEDS: NITROGLYCERIN OINT 1 INCH/GM PACKET TOPICAL SCH (12:25)
[2023-01-01 14:26] VITALS: BP 115/70; PULSE 56; RESP 16; TEMP 98.2
--- NOTE | 2023-01-01 15:06 | P.PN ---
Subjective Progress Note Date: 01/01/23 The patient is a 77-year-old female who follows in the office with Dr. Her. She initially presented to the hospital with visual disturbances. She also states she had been experiencing intermittent episodes of dizziness and lightheadedness that will cause chest tightness. She states this had been occurring over the course of the last week. Neurology feels that she may have a couple of small centrum semi-over how old lacunar infarcts found on MRI. She underwent Loop monitor implant for arrhythmia monitoring She continues to have positional dizziness and visual disturbances. Her main complaint this morning is tenderness at her Loop site. No chest pain or chest pressure. No dyspnea or orthopnea. No complete syncope. PHYSICAL EXAMINATION: This is a 77-year-old female in no apparent distress at the time of my examination. HEENT: Head is atraumatic, normocephalic. Pupils are equal, round. Sclerae anicteric. Conjunctivae are clear. There is no jugular venous distention. No carotid bruit is heard. CHEST EXAMINATION: Lungs are clear to auscultation. No chest wall tenderness is noted on palpation or with deep breathing. HEART EXAMINATION: Heart regular rate and rhythm. S1, S2 heard. No murmurs, gallops or rub. Tenderness noted at Loop site. ABDOMEN: Soft, nontender. Bowel sounds are heard. No organomegaly noted. EXTREMITIES: 2+ peripheral pulses with no evidence of peripheral edema and no calf tenderness noted. NEUROLOGIC EXAMINATION: Patient is awake, alert and oriented x3. FINAL ASSESSMENT AND PLAN: Dizziness with visual disturbances, likely TIA Chest discomfort, ACS workup unremarkable History of Mnire's disease Hyperlipidemia, history of statin intolerance Prediabetic Hypertension, improving PLAN: No change in medication regimen Outpatient follow-up with primary linoleum printer I am dictating on behalf of Dr Hira Pizarro's history/physical and assessment/plan. Objective - Vital Signs Vital signs: Vital Signs Temp 98.2 F 01/01/23 14:25 Pulse 56 L 01/01/23 14:25 Resp 16 01/01/23 14:25 BP 115/70 01/01/23 14:25 Pulse Ox 96 01/01/23 14:25 FiO2 Intake & Output 12/31/22 01/01/23 01/01/23 18:59 06:59 18:59 Intake Total 460 354 Balance 460 354 Intake: IV 106 Oral 354 354 Other: Voiding Method Toilet Toilet # Voids 1 1 1 - Labs CBC & Chem 7: 12/31/22 09:11 12/31/22 09:11 Labs: Abnormal Lab Results - Last 24 Hours (Table) 12/31/22 12/31/22 Range/Units 17:21 20:55 POC Glucose (mg/dL) 120 H 119 H (70-110) mg/dL
[2023-01-01 17:19] LABS: Glucose,Whole Blood 119 mg/dL (70-110)
== END 2023-01-01 19:51 | disposition home or self-care (01) | DRG 69 ==
LOC: EC 09:22 → 6NMEDSUR 11:28 → OBSVTOIN 01-01 11:36 → UNDODISOB 01-01 19:51
PROVIDERS: ADMIT Internal Medicine; ATTEND Internal Medicine
DX: G45.9 Transient cerebral ischemic attack, unspecified (principal); I47.1 Supraventricular tachycardia; H53.8 Other visual disturbances; R07.9 Chest pain, unspecified; I10 Essential (primary) hypertension; E11.42 Type 2 diabetes mellitus with diabetic polyneuropathy; H35.039 Hypertensive retinopathy, unspecified eye; H40.1190 Primary open-angle glaucoma, unspecified eye, stage unspecified; M79.7 Fibromyalgia; K21.9 Gastro-esophageal reflux disease without esophagitis; H91.90 Unspecified hearing loss, unspecified ear; E78.5 Hyperlipidemia, unspecified; M19.90 Unspecified osteoarthritis, unspecified site; Z87.01 Personal history of pneumonia (recurrent); G25.81 Restless legs syndrome; H81.09 Meniere's disease, unspecified ear; Z87.19 Personal history of other diseases of the digestive system; M10.9 Gout, unspecified; K76.0 Fatty (change of) liver, not elsewhere classified; H40.1110 Primary open-angle glaucoma, right eye, stage unspecified; F32.A Depression, unspecified; R79.1 Abnormal coagulation profile; Z85.828 Personal history of other malignant neoplasm of skin; Z90.49 Acquired absence of other specified parts of digestive tract; Z90.710 Acquired absence of both cervix and uterus; Z98.51 Tubal ligation status; Z96.653 Presence of artificial knee joint, bilateral; Z98.42 Cataract extraction status, left eye; Z98.41 Cataract extraction status, right eye; Z96.1 Presence of intraocular lens; Z96.641 Presence of right artificial hip joint; F41.9 Anxiety disorder, unspecified; Z98.890 Other specified postprocedural states; Z82.49 Family history of ischemic heart disease and other diseases of the circulatory system; Z80.0 Family history of malignant neoplasm of digestive organs; Z79.84 Long term (current) use of oral hypoglycemic drugs; Z79.891 Long term (current) use of opiate analgesic; Z79.899 Other long term (current) drug therapy; Z88.6 Allergy status to analgesic agent; Z88.0 Allergy status to penicillin; Z91.09 Other allergy status, other than to drugs and biological substances; Z88.8 Allergy status to other drugs, medicaments and biological substances
CPT/HCPCS: 33285; 36415; 70450; 70551; 71046; 71275; 80048; 80053; 80061; 81001; 83036; 83880; 84443; 84484; 85025; 85379; 85610; 85652; 86140; 93005; 93306; 93880; 99285

== ENCOUNTER 2023-03-24 19:15 | Observation (INO) | payer MEDICARE ==
[2023-03-24] MEDS ORDERED: ACETAMINOPHEN TAB 500 MG TAB PO STA (19:48)
[2023-03-24] MEDS ORDERED: NITROGLYCERIN OINT 1 INCH/GM PACKET TOPICAL STA (19:48)
[2023-03-24] MEDS ORDERED: METOCLOPRAMIDE 5 MG/ML 2 ML VIAL IVP STA (19:48)
[2023-03-24] MEDS ORDERED: diphenhydrAMINE 50 MG/ML 1 ML VIAL IVP STA (19:48)
[2023-03-24 20:01] LABS: Basophils # (A) 0.1 k/uL (0-0.2); Basophils % (A) 1 %; Eosinophils # (A) 0.3 k/uL (0-0.7); Eosinophils % (A) 4 %; HGB 13.2 gm/dL (11.4-16.0); Lymphocytes # (A) 1.8 k/uL (1.0-4.8); Lymphocytes % (A) 25 %; MCH 27.4 pg (25.0-35.0); MCV 80.8 fL (80.0-100.0); Monocytes # (A) 0.3 k/uL (0-1.0); Monocytes % (A) 5 %; Neutrophils # (A) 4.8 k/uL (1.3-7.7); Neutrophils % (A) 65 %; Platelet Count 222 k/uL (150-450); RBC 4.83 m/uL (3.80-5.40); RDW 15.2 % (11.5-15.5); WBC 7.3 k/uL (3.8-10.6)
--- NOTE | 2023-03-24 20:07 | ED ---
General Adult HPI - General Chief complaint: Chest Pain Stated complaint: Chest pain Time Seen by Provider: 03/24/23 19:38 Source: patient, RN notes reviewed, old records reviewed Mode of arrival: EMS Limitations: no limitations - History of Present Illness Initial comments: Patient is a 78-year-old female who presents mostly Department complaining of c hest pain. Chest pain began 5 hours prior to arrival. States it was substernal. Endorses some nausea and a small episode of diaphoresis as well. Patient was hypertensive upon arrival with EMS. They administered 2 nitroglycerin tablets which resolved her chest pain but now she has a headache. She also feels mildly nauseous. She was given Zofran by EMS as well. She currently denies any chest pain and is only complaining of a mild headache. Has been endorsing some worsening orthopnea, requiring more pillows lately over the last few weeks. His no some worsening exertional dyspnea which she states is somewhat chronic but more noticeable lately. Denies any cough. Denies any fevers. Denies any abdominal pain, nausea, vomiting currently. Has no other acute complaints at this time. No history of cardiac disease other than what she describes as an arrhythmia. Presents for further evaluation. Patient is ALLERGIC to aspirin. - Related Data Home Medications Medication Instructions Recorded Confirmed Fenofibrate [Lofibra] 160 mg PO DAILY 11/17/18 03/24/23 Omeprazole 40 mg PO DAILY 10/14/20 03/24/23 HYDROcodone/APAP 7.5-325MG [[place] 1.5 tab PO HS 05/02/21 03/24/23 7.5-325] Ezetimibe [Zetia] 10 mg PO DAILY 03/16/22 03/24/23 rOPINIRole HCL [Requip] 1 mg PO HS 03/16/22 03/24/23 Desvenlafaxine Succinate [Pristiq] 100 mg PO DAILY 04/07/22 03/24/23 Gabapentin [Neurontin] 300 mg PO BID 04/07/22 03/24/23 Vit C/E/Zn/Coppr/Lutein/Zeaxan 1 tab PO BID 04/07/22 03/24/23 [Preservision Areds 2 Chew Tab] Losartan Potassium [Cozaar] 100 mg PO DAILY 04/28/22 03/24/23 Dapagliflozin Propanediol [Farxiga] 10 mg PO DAILY 09/14/22 03/24/23 Furosemide [Lasix] 20 mg PO Q48H 09/14/22 03/24/23 HYDROcodone/APAP 7.5-325MG [[place] 1 tab PO BID 09/14/22 03/24/23 7.5-325] Metoprolol Succinate (ER) [Toprol 100 mg PO DAILY 09/14/22 03/24/23 XL] Hydrocortisone Cream 1 applic TOPICAL BID PRN 03/24/23 03/24/23 [Hydrocortisone 2.5% Cream] Ketoconazole 2% Shampoo [Nizoral] 1 applic TOPICAL Q3D PRN 03/24/23 03/24/23 Mirabegron [Myrbetriq] 50 mg PO DAILY 03/24/23 03/24/23 icosapent ethyL [Icosapent Ethyl] 2 gm PO BID 03/24/23 03/24/23 tiZANidine HCL [Zanaflex] 4 mg PO DAILY 03/24/23 03/24/23 Previous Rx's Medication Instructions Recorded Clopidogrel [Plavix] 75 mg PO DAILY #30 tab 01/01/23 Allergies Allergy/AdvReac Type Severity Reaction Status Date / Time adhesive Allergy Rash/Hives Verified 03/24/23 21:23 Penicillins Allergy Rash/Hives Verified 03/24/23 21:23 Izekvhv-XTY-GdA Reductase Allergy Rash/Hives Verified 03/24/23 21:23 Inhibitor [Jptiisq-Tix-Kfo Reductase Inhibitor] aspirin AdvReac STOMACH Verified 03/24/23 21:23 UPSET/HEARTBURN Review of Systems ROS Statement: Those systems with pertinent positive or pertinent negative responses have been documented in the HPI. Review of Systems: CONST: Denies fever EYES: Denies blurry vision ENT: Denies nasal congestion C/V: Denies Chest pain RESP: Denies shortness of breath GI: Denies abdominal pain : Denies dysuria SKIN: Denies rash. MSK: Denies joint pain. NEURO: Endorses current headache ROS Other: All systems not noted in ROS Statement are negative. Past Medical History Past Medical History: Cancer, Chest Pain / Angina, Diabetes Mellitus, Eye Disorder, Fibromyalgia, GERD/Reflux, Hearing Disorder / Deafness, Hyperlipidemia, Hypertension, Liver Disease, Musculoskeletal Disorder, Osteoarthritis (OA), Pneumonia, Supraventricular Tachycardia (SVT) Additional Past Medical History / Comment(s): Intestinal adhesions, RESTLESS LEG, Hiatal Hernia, MENIERES, DIVERTICULITIS, GLAUCOMA - right eye, NEUROPATHY bilateral legs, hx anemia, irregular heartbeat, DDD, difficulty hearing certain tones, gout, hx skin cancer, fatty liver. History of Any Multi-Drug Resistant Organisms: None Reported Past Surgical History: Appendectomy, Bladder Surgery, Bowel Resection, Cholecystectomy, Ear Surgery, Heart Catheterization, Hernia Repair, Hyste rectomy, Joint Replacement, Orthopedic Surgery, Tonsillectomy, Tubal Ligation Additional Past Surgical History / Comment(s): Direct Microlaryngoscopy and removal of left vocal cord mass, right breast biopsy, diagnostic laparoscopy with lysis of adhesions, bilateral knee replacements, bilateral cataracts removed with lens implants, TUBE IN RIGHT EAR FOR MENIERES, LEFT THUMB SURGERY, hiatal hernia repair, abdominal ventral hernia repair, EGD with dilation X3, spur removed from left heel, total right hip replacement. Past Anesthesia/Blood Transfusion Reactions: Previous Problems w/ Anesthesia, Motion Sickness, Postoperative Nausea & Vomiting (PONV) Additional Past Anesthesia/Blood Transfusion Reaction / Comment(s): STATES "DIFFICULT INTUBATION-JAW LOCKED UP AFTER A PREVIOUS INTUBATION". "Have to use child size tube so jaw doesn't lock up". 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 Difficult IV start. Past Psychological History: Anxiety, Depression Smoking Status: Former smoker Past Alcohol Use History: Rare Past Drug Use History: None Reported - Past Family History Brother(s) Family Medical History: Cancer Mother Family Medical History: Cancer, Deep Vein Thrombosis (DVT), Pulmonary Embolus Additional Family Medical History / Comment(s): STOMACH CANCER. Father Family Medical History: No Reported History Additional Family Medical History / Comment(s): COMMITTED SUICIDE. General Exam - General Exam Comments Initial Comments: General: Appears in no acute distress. HEAD: Normal with no signs of head trauma. EYES: PERRLA, EOMI, conjunctiva normal, no discharge. ENT: Hearing grossly intact, normal oropharynx. RESPIRATORY: Clear breath sounds bilaterally. No wheezes, rales, or rhonchi. C/V: Regular rate and rhythm. S1 and S2 auscultated, mild edema, peripheral pulses 2+ and intact throughout ABD: Abd is soft, nontender, nondistended EXT: Normal range of motion, no obvious deformity SKIN: No rashes or lesions observed on exposed skin. NEURO: Alert and oriented 4. Limitations: no limitations Course Vital Signs 03/24/23 03/24/23 19:18 20:48 Temperature 97.6 F Pulse Rate 55 L Pulse Rate [ 71 Installation And Service Technician ] Respiratory 18 Rate Blood Pressure 138/87 O2 Sat by Pulse 95 Oximetry Medical Decision Making - Medical Decision Making Was pt. sent in by a medical professional or institution (, PA, COLOR REPAIRER, urgent care, hospital, or senior living...) When possible be specific @ -No Did you speak to anyone other than the patient for history (EMS, parent, family, police, friend...)? What history was obtained from this source @ -No Did you review nursing and triage notes (agree or disagree)? Why? @ -I reviewed and agree with nursing and triage notes Were old charts reviewed (outside hosp., previous admission, EMS record, old EKG, old radiological studies, urgent care reports/EKG's, senior living records)? Report findings @ -Old charts including EKG reviewed from February 2023 Differential Diagnosis (chest pain, altered mental status, abdominal pain women, abdominal pain men, vaginal bleeding, weakness, fever, dyspnea, syncope, headache, dizziness, GI bleed, back pain, seizure, CVA, palpatations, mental health, musculoskeletal)? @ -Differential Chest Pain: Stable Angina, Unstable Angina, STEMI, NSTEMI Aortic Dissection, Pneumothorax, Musculoskeletal, Esophageal Spasm GERD, Cholecystitis, Pancreatitis, Zoster, this is not meant to be an all-inclusive list. EKG interpreted by me (3pts min.). @ -As above X-rays interpreted by me (1pt min.). @ -Chest x-ray reveals no obvious acute cardio pulmonary process. Radiology concern for possible mild tongue overload. CT interpreted by me (1pt min.). @ -None done U/S interpreted by me (1pt. min.). @ -None done What testing was considered but not performed or refused? (CT, X-rays, U/S, labs)? Why? @ -None What meds were considered but not given or refused? Why? @ -None Did you discuss the management of the patient with other professionals (professionals i.e. , PA, COLOR REPAIRER, lab, RT, psych nurse, social welfare administrator, recyclable materials distributor, teacher, command and control officer, piano case maker)? Give summary @ -Discussed with SUDHIR Barrera of [facility] who accepted the admission. Was smoking cessation discussed for >3mins.? @ -No Was critical care preformed (if so, how long)? @ -No Were there social determinants of health that impacted care today? How? (Homelessness, low income, unemployed, alcoholism, drug addiction, transportation, low edu. Level, literacy, decrease access to med. care, skilled nursing, rehab)? @ -No Was there de-escalation of care discussed even if they declined (Discuss DNR or withdrawal of care, Hospice)? DNR status @ -No What co-morbidities impacted this encounter? (DM, HTN, Smoking, COPD, CAD, Cancer, CVA, ARF, Chemo, Hep., AIDS, mental health diagnosis, sleep apnea, morbid obesity)? @ -None Was patient admitted / discharged? Hospital course, mention meds given and route, prescriptions, significant lab abnormalities, going to OR and other pertinent info. @ -Based on the patient's presentation and physical exam, I'm concerned for possible cardiopulmonary etiology for her current symptoms. We'll obtain cardiac labs, EKG, chest x-ray. Patient currently is pain-free and we will continue Nitropaste ointment. EKG shows no signs of acute ischemia. Patient was in agreement with this plan. She'll be given Reglan, Benadryl, Tylenol for her headache. Patient was hypertensive at the scene, but this is resolved and blood pressure is within normal limits at this time. Vital signs otherwise within acceptable limits. EKG shows no signs of acute ischemia.Imaging is relatively unremarkable. Labs are significant for a BNP within normal limits. Troponin is undetectable. On reevaluation, patient remains symptom-free. Patient's heart score is moderate at 4. Therefore I would like to admit her to the hospital for troponin trending and evaluation by cardiology. She was in agreement this plan. Cardiology is consulted. Spoke with the admitting physician, SUDHIR Barrera of [facility] who accepted the patient. Patient admitted in stable condition. Undiagnosed new problem with uncertain prognosis? @ -No Drug Therapy requiring intensive monitoring for toxicity (Heparin, Nitro, Insulin, Cardizem)? @ -No Were any procedures done? @ -No Diagnosis/symptom? @ -Chest pain Acute, or Chronic, or Acute on Chronic? @ -Acute Uncomplicated (without systemic symptoms) or Complicated (systemic symptoms)? @ -Complicated Side effects of treatment? @ -none Exacerbation, Progression, or Severe Exacerbation] @ -no Poses a threat to life or bodily function? @ -Yes - Lab Data Result diagrams: 03/24/23 19:24 03/24/23 19:24 Lab Results 03/24/23 03/24/23 03/24/23 Range/Units 19:24 19:24 19:24 WBC 7.3 (3.8-10.6) k/uL RBC 4.83 (3.80-5.40) m/uL Hgb 13.2 (11.4-16.0) gm/dL Hct 39.0 (34.0-46.0) % MCV 80.8 (80.0-100.0) fL MCH 27.4 (25.0-35.0) pg MCHC 34.0 (31.0-37.0) g/dL RDW 15.2 (11.5-15.5) % Plt Count 222 (150-450) k/uL MPV 8.0 Neutrophils % 65 % Lymphocytes % 25 % Monocytes % 5 % Eosinophils % 4 % Basophils % 1 % Neutrophils # 4.8 (1.3-7.7) k/uL Lymphocytes # 1.8 (1.0-4.8) k/uL Monocytes # 0.3 (0-1.0) k/uL Eosinophils # 0.3 (0-0.7) k/uL Basophils # 0.1 (0-0.2) k/uL PT 10.5 (9.0-12.0) sec INR 1.0 (<1.2) APTT 19.5 L (22.0-30.0) sec Sodium 138 (137-145) mmol/L Potassium 3.7 (3.5-5.1) mmol/L Chloride 103 (98-107) mmol/L Carbon Dioxide 25 (22-30) mmol/L Anion Gap 10 mmol/L BUN 14 (7-17) mg/dL Creatinine 0.75 (0.52-1.04) mg/dL Est GFR (CKD-EPI)AfAm 90 (>60 ml/min/1.73 sqM) Est GFR (CKD-EPI)NonAf 78 (>60 ml/min/1.73 sqM) Glucose 177 H (74-99) mg/dL Calcium 9.5 (8.4-10.2) mg/dL Magnesium 1.6 (1.6-2.3) mg/dL Total Bilirubin 0.7 (0.2-1.3) mg/dL AST 42 H (14-36) U/L ALT 29 (4-34) U/L Alkaline Phosphatase 104 (38-126) U/L Troponin I (0.000-0.034) ng/mL NT-Pro-B Natriuret Pep 262 pg/mL Total Protein 7.5 (6.3-8.2) g/dL Albumin 4.6 (3.5-5.0) g/dL 03/24/23 Range/Units 19:24 WBC (3.8-10.6) k/uL RBC (3.80-5.40) m/uL Hgb (11.4-16.0) gm/dL Hct (34.0-46.0) % MCV (80.0-100.0) fL MCH (25.0-35.0) pg MCHC (31.0-37.0) g/dL RDW (11.5-15.5) % Plt Count (150-450) k/uL MPV Neutrophils % % Lymphocytes % % Monocytes % % Eosinophils % % Basophils % % Neutrophils # (1.3-7.7) k/uL Lymphocytes # (1.0-4.8) k/uL Monocytes # (0-1.0) k/uL Eosinophils # (0-0.7) k/uL Basophils # (0-0.2) k/uL PT (9.0-12.0) sec INR (<1.2) APTT (22.0-30.0) sec Sodium (137-145) mmol/L Potassium (3.5-5.1) mmol/L Chloride (98-107) mmol/L Carbon Dioxide (22-30) mmol/L Anion Gap mmol/L BUN (7-17) mg/dL Creatinine (0.52-1.04) mg/dL Est GFR (CKD-EPI)AfAm (>60 ml/min/1.73 sqM) Est GFR (CKD-EPI)NonAf (>60 ml/min/1.73 sqM) Glucose (74-99) mg/dL Calcium (8.4-10.2) mg/dL Magnesium (1.6-2.3) mg/dL Total Bilirubin (0.2-1.3) mg/dL AST (14-36) U/L ALT (4-34) U/L Alkaline Phosphatase (38-126) U/L Troponin I <0.012 (0.000-0.034) ng/mL NT-Pro-B Natriuret Pep pg/mL Total Protein (6.3-8.2) g/dL Albumin (3.5-5.0) g/dL - EKG Data -: EKG Interpreted by Me EKG Comments: 12-lead Electrocardiogram Interpretation Note EKG was reviewed and interpreted by myself. 12-lead ECG performed at 1924 is interpreted by me as revealing normal sinus rhythm at a rate of 55 beats per minute. [place] is normal. [place] interval is 184 ms, QRS duration is 85 ms, QTc is 439 ms.. There were no obvious acute ST or T wave abnormalities to suggest myocardial ischemia or injury. R wave progression across the precordium was satisfactory. By my interpretation this EKG is non-diagnostic for acute ischemia. When compared with EKG from February 2023, no significant change. Disposition Clinical Impression: Chest pain Disposition: ADMITTED IP TO THIS HOSP Condition: Stable Time of Disposition: 21:30
[2023-03-24 20:17] LABS: Prothrombin Time 10.5 sec (9.0-12.0)
[2023-03-24 20:18] LABS: ALT 29 U/L (4-34); AST 42 U/L (14-36); African American GFR (CKD) 90 (>60 ml/min/1.73 sqM); Albumin 4.6 g/dL (3.5-5.0); Alkaline Phosphatase 104 U/L (38-126); Anion Gap 10 mmol/L; Blood Urea Nitrogen 14 mg/dL (7-17); Calcium 9.5 mg/dL (8.4-10.2); Carbon Dioxide 25 mmol/L (22-30); Chloride 103 mmol/L (98-107); Glucose 177 mg/dL (74-99); Magnesium 1.6 mg/dL (1.6-2.3); Non-African American GFR(CKD) 78 (>60 ml/min/1.73 sqM); Potassium 3.7 mmol/L (3.5-5.1); Sodium 138 mmol/L (137-145); Total Bilirubin 0.7 mg/dL (0.2-1.3); Total Protein 7.5 g/dL (6.3-8.2)
[2023-03-24 20:27] LABS: NT-Pro-B-Type Natriuretic Pept 262 pg/mL
[2023-03-24 20:34] LABS: Partial Thromboplastin Time 19.5 sec (22.0-30.0)
--- NOTE | 2023-03-24 21:35 | XR ---
EXAMINATION TYPE: XR chest 2V DATE OF EXAM: 03/24/2023 COMPARISON: 12/30/2022 INDICATION: Chest pain TECHNIQUE: Single frontal view of the chest is obtained. FINDINGS: The heart size is normal. The pulmonary vasculature is prominent. No focal consolidations are evident. IMPRESSION: 1. Correlate for mild volume overload
[2023-03-24] MEDS ORDERED: NALOXONE 0.4 MG/ML 1 ML VIAL IV PRN (21:41)
[2023-03-25] MEDS ORDERED: ONDANSETRON 4 MG/2 ML VIAL IVP PRN (00:13)
[2023-03-25] MEDS: HYDROcodone/APAP 7.5-325MG 1 EACH TAB PO SCH ×2 (00:19→09:17)
[2023-03-25 03:15] VITALS: RESP 16
[2023-03-25 06:27] LABS: Basophils # (A) 0.1 k/uL (0-0.2); Basophils % (A) 1 %; Eosinophils # (A) 0.1 k/uL (0-0.7); Eosinophils % (A) 2 %; HCT 38.7 % (34.0-46.0); HGB 13.3 gm/dL (11.4-16.0); Lymphocytes # (A) 1.6 k/uL (1.0-4.8); Lymphocytes % (A) 24 %; MCH 27.9 pg (25.0-35.0); MCHC 34.3 g/dL (31.0-37.0); MCV 81.2 fL (80.0-100.0); Mean Platelet Volume 8.3; Monocytes # (A) 0.3 k/uL (0-1.0); Monocytes % (A) 4 %; Neutrophils # (A) 4.7 k/uL (1.3-7.7); Neutrophils % (A) 69 %; Platelet Count 211 k/uL (150-450); RBC 4.77 m/uL (3.80-5.40); RDW 15.1 % (11.5-15.5); WBC 6.8 k/uL (3.8-10.6)
[2023-03-25 06:38] LABS: African American GFR (CKD) >90 (>60 ml/min/1.73 sqM); Anion Gap 9 mmol/L; Blood Urea Nitrogen 15 mg/dL (7-17); Calcium 9.5 mg/dL (8.4-10.2); Carbon Dioxide 27 mmol/L (22-30); Chloride 105 mmol/L (98-107); Glucose 109 mg/dL (74-99); Non-African American GFR(CKD) 85 (>60 ml/min/1.73 sqM); Potassium 3.5 mmol/L (3.5-5.1); Sodium 141 mmol/L (137-145)
[2023-03-25 09:00] LABS: Appearance,Urine Cloudy (Clear); Bacteria,Urine Many /hpf; Bilirubin,Urine Negative (Negative); Blood,Urine Negative (Negative); Color,Urine Yellow; Glucose,Urine (UA) 4+ (Negative); Ketones,Urine Trace (Negative); Leukocyte Esterase,Urine Negative (Negative); Mucus,Urine Few /hpf; Nitrite,Urine Negative (Negative); Protein,Urine 3+ (Negative); RBC,Urine 7 /hpf (0-5); Specific Gravity,Urine 1.032 (1.001-1.035); Squamous Epithelial Cell,Urine <1 /hpf (0-4); Urobilinogen,Urine <2.0 mg/dL (<2.0); WBC,Urine 21 /hpf (0-5)
[2023-03-25] MEDS ORDERED: METOPROLOL SUCCINATE (ER) 100 MG TAB.ER.24H PO SCH (09:00)
[2023-03-25] MEDS ORDERED: EZETIMIBE 10 MG TAB PO SCH (09:00)
[2023-03-25] MEDS ORDERED: CLOPIDOGREL 75 MG TAB PO SCH (09:00)
[2023-03-25] MEDS ORDERED: DAPAGLIFLOZIN PROPANEDIOL 10 MG TABLET PO SCH (09:00)
[2023-03-25] MEDS ORDERED: LOSARTAN 50 MG TAB PO SCH (09:00)
[2023-03-25] MEDS ORDERED: FENOFIBRATE 160 MG TAB PO SCH (09:00)
[2023-03-25] MEDS ORDERED: FUROSEMIDE 20 MG TAB PO SCH (09:00)
--- NOTE | 2023-03-25 11:42 | P.CRDCN ---
History of Present Illness History of present illness: HISTORY OF PRESENT ILLNESS: This is a 78-year-old female with a past medical history significant for possible TIA with loop recorder insertion in December 2022 diabetes, valvular heart disease, hypertension, hyperlipidemia, carotid atherosclerosis, and SVT. Patient follows in the office with Dr. Her. We have been asked to see the patient in consultation for chest pain. Patient examined at the bedside. Patient states that she woke up yesterday with a headache. She decided to take her blood pressure which she found to be 195/102. She states her blood pressure usually runs in the 150s to 160s. She states that she started throwing up and feeling dizzy. She called EMS. She states that her blood pressure was 205/100 when EMS arrived. She states that she had pain in the middle of her chest when her blood pressure was elevated. She denied any radiation of the pain. She states the pain lasted for a total of about 5 hours. She states that she had shortness of breath that was worse than her baseline and gives history of chronic shortness of breath this morning she continues to report a headache. However she denies having any chest pain or pressure. Blood pressure has improved this morning with a systolic in the 150s. * EKG reveals sinus mechanism with nonspecific ST-T wave changes. T-wave inversions in lead 3. No signs of acute ischemia * Chest xray correlate for mild volume overload * Laboratory data: WBC 6.8. Hemoglobin 13.3. Platelet count 211. Sodium 141. Potassium 3.5. BUN 15. Creatinine 0.68. Troponin negative 3. ProBNP 262. * Current home cardiac medications include losartan 100 mg daily, Lofibra 160 mg daily, Zetia 10 mg daily, metoprolol succinate 100 mg daily, Plavix 75 mg daily, Lasix 20 mg every 48 hours * Most recent echocardiogram obtained in December 2022 revealed ejection fraction 55- 60%, mild pulmonary hypertension, [id number] mitral regurgitation, mild tricuspid regurgitation * Cardiac catheterization history: September 2020 revealing normal coronary arteries REVIEW OF SYSTEMS: At the time of my exam: CONSTITUTIONAL: Denies fever or chills. HEENT: Denies blurred vision, vision changes, or eye pain. Denies hemoptysis CARDIOVASCULAR: Denies chest pain. Denies orthopnea. Denies PND. Denies palpitations RESPIRATORY: Denies shortness of breath. GASTROINTESTINAL: Denies abdominal pain. Denies nausea or vomiting. HEMATOLOGIC: Denies bleeding disorders. GENITOURINARY: Denies any blood in urine. SKIN: Denies pruitis. Denies rash. PHYSICAL EXAM: VITAL SIGNS: Reviewed. GENERAL: Well-developed in no acute distress. HEENT: Head is normocephalic. Pupils are equal, round. Sclerae anicteric. Mucous membranes of the mouth are moist. Neck supple. No JVD or thyromegaly LUNGS: Respirations even and unlabored. Lungs essentially clear to auscultation bilaterally. HEART: Regular rate and rhythm. S1 and S2 heard. Systolic murmur noted ABDOMEN: Soft. Nondistended. Nontender. EXTREMITIES: Normal range of motion. No clubbing or cyanosis. Peripheral pul ses intact. No lower extremity edema NEUROLOGIC: Awake and alert. Oriented x 3. ASSESSMENT: Hypertensive urgency, improved Chest pain, atypical, troponin negative 3, may be secondary to uncontrolled hypertension Normal coronary arteries, per cardiac catheterization in 2020 Headache Possible TIA with loop recorder insertion, December 2022 Valvular heart disease History of hypertension History of hyperlipidemia Carotid atherosclerosis History of SVT PLAN: An acute coronary event has been ruled out Resume home cardiac medications Monitor blood pressure Obtain 2-D echo to assess cardiac structure and function If 2-D echo does not reveal any significant abnormalities, the patient may be discharged home today from a cardiac standpoint Will consider outpatient Lexiscan stress test if patient continues to have chest pain with controlled blood pressures Patient to follow-up post discharge with Dr. Her Nurse practitioner note has been reviewed by physician. Signing provider agrees with the documented findings, assessment, and plan of care. Past Medical History Past Medical History: Cancer, Chest Pain / Angina, Diabetes Mellitus, Eye Disorder, Fibromyalgia, GERD/Reflux, Hearing Disorder / Deafness, Hyperlipidemia, Hypertension, Liver Disease, Musculoskeletal Disorder, Osteoarthritis (OA), Pneumonia, Supraventricular Tachycardia (SVT) Additional Past Medical History / Comment(s): Intestinal adhesions, RESTLESS LEG, Hiatal Hernia, MENIERES, DIVERTICULITIS, GLAUCOMA - right eye, NEUROPATHY bilateral legs, hx anemia, irregular heartbeat (not afib/flutter), DDD, difficulty hearing certain tones, gout, hx skin cancer, fatty liver. History of Any Multi-Drug Resistant Organisms: None Reported Past Surgical History: Appendectomy, Bladder Surgery, Bowel Resection, Cholecystectomy, Ear Surgery, Heart Catheterization, Hernia Repair, Hysterectomy, Joint Replacement, Orthopedic Surgery, Tonsillectomy, Tubal Ligation Additional Past Surgical History / Comment(s): Direct Microlaryngoscopy and removal of left vocal cord mass, right and left breast biopsy, diagnostic laparoscopy with lysis of adhesions, bilateral knee replacements, bilateral cataracts removed with lens implants, TUBE IN RIGHT EAR FOR MENIERES, LEFT THUMB SURGERY, hiatal hernia repair, abdominal ventral hernia repair, EGD with dilation X3, spur removed from left and right heel, total right hip replacement. Past Anesthesia/Blood Transfusion Reactions: Previous Problems w/ Anesthesia, Motion Sickness, Postoperative Nausea & Vomiting (PONV) Additional Past Anesthesia/Blood Transfusion Reaction / Comment(s): STATES "DIFFICULT INTUBATION-JAW LOCKED UP AFTER A PREVIOUS INTUBATION". "Have to use child size tube so jaw doesn't lock up". 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 Difficult IV start. Past Psychological History: Anxiety, Depression Smoking Status: Former smoker Past Alcohol Use History: Rare Additional Past Alcohol Use History / Comment(s): Smoked for 5 years, off and on, less then a ppd, quit 40 years ago. Past Drug Use History: None Reported - Past Family History Brother(s) Family Medical History: Cancer Mother Family Medical History: Cancer, Deep Vein Thrombosis (DVT), Pulmonary Embolus Additional Family Medical History / Comment(s): STOMACH CANCER. Father Family Medical History: No Reported History Additional Family Medical History / Comment(s): COMMITTED SUICIDE. Medications and Allergies Home Medications Medication Instructions Recorded Confirmed Type Fenofibrate [Lofibra] 160 mg PO DAILY 11/17/18 03/24/23 History Omeprazole 40 mg PO DAILY 10/14/20 03/24/23 History HYDROcodone/APAP 7.5-325MG [[place] 1.5 tab PO HS 05/02/21 03/24/23 History 7.5-325] Ezetimibe [Zetia] 10 mg PO DAILY 03/16/22 03/24/23 History rOPINIRole HCL [Requip] 1 mg PO HS 03/16/22 03/24/23 History Desvenlafaxine Succinate [Pristiq] 100 mg PO DAILY 04/07/22 03/24/23 History Gabapentin [Neurontin] 300 mg PO BID 04/07/22 03/24/23 History Vit C/E/Zn/Coppr/Lutein/Zeaxan 1 tab PO BID 04/07/22 03/24/23 History [Preservision Areds 2 Chew Tab] Losartan Potassium [Cozaar] 100 mg PO DAILY 04/28/22 03/24/23 History Dapagliflozin Propanediol [Farxiga] 10 mg PO DAILY 09/14/22 03/24/23 History Furosemide [Lasix] 20 mg PO Q48H 09/14/22 03/24/23 History HYDROcodone/APAP 7.5-325MG [[place] 1 tab PO BID 09/14/22 03/24/23 History 7.5-325] Metoprolol Succinate (ER) [Toprol 100 mg PO DAILY 09/14/22 03/24/23 History XL] Clopidogrel [Plavix] 75 mg PO DAILY #30 tab 01/01/23 03/24/23 Rx Hydrocortisone Cream 1 applic TOPICAL BID PRN 03/24/23 03/24/23 History [Hydrocortisone 2.5% Cream] Ketoconazole 2% Shampoo [Nizoral] 1 applic TOPICAL Q3D PRN 03/24/23 03/24/23 History Mirabegron [Myrbetriq] 50 mg PO DAILY 03/24/23 03/24/23 History icosapent ethyL [Icosapent Ethyl] 2 gm PO BID 03/24/23 03/24/23 History tiZANidine HCL [Zanaflex] 4 mg PO DAILY 03/24/23 03/24/23 History Allergies Allergy/AdvReac Type Severity Reaction Status Date / Time adhesive Allergy Rash/Hives Verified 03/24/23 21:23 Penicillins Allergy Rash/Hives Verified 03/24/23 21:23 [id number] Reductase Allergy Rash/Hives Verified 03/24/23 21:23 Inhibitor [Dwyovfo-Nsg-Bni Reductase Inhibitor] aspirin AdvReac STOMACH Verified 03/24/23 21:23 UPSET/HEARTBURN Physical Exam Vitals: Vital Signs Temp Pulse Pulse Resp BP BP Pulse Ox 03/25/23 02:38 98.2 F 67 16 158/76 95 03/25/23 02:00 16 03/24/23 23:55 98.3 F 64 18 146/72 94 L 03/24/23 22:58 65 18 139/82 94 L 03/24/23 21:00 70 16 146/79 96 03/24/23 20:48 71 03/24/23 19:18 97.6 F 55 L 18 138/87 95 Intake and Output 03/24/23 03/25/23 03/25/23 22:59 06:59 14:59 Other: Voiding Method Toilet # Voids 1 Weight 83.461 kg 83.461 kg Results 03/25/23 06:02 03/25/23 06:02 Cardiac Enzymes 03/24/23 03/24/23 03/25/23 Range/Units 19:24 19:24 00:42 AST 42 H (14-36) U/L Troponin I <0.012 <0.012 (0.000-0.034) ng/mL 03/25/23 Range/Units 06:02 AST (14-36) U/L Troponin I <0.012 (0.000-0.034) ng/mL Coagulation 03/24/23 Range/Units 19:24 PT 10.5 (9.0-12.0) sec APTT 19.5 L (22.0-30.0) sec CBC 03/24/23 03/25/23 Range/Units 19:24 06:02 WBC 7.3 6.8 (3.8-10.6) k/uL RBC 4.83 4.77 (3.80-5.40) m/uL Hgb 13.2 13.3 (11.4-16.0) gm/dL Hct 39.0 38.7 (34.0-46.0) % Plt Count 222 211 (150-450) k/uL Comprehensive Metabolic Panel 03/24/23 03/25/23 Range/Units 19:24 06:02 Sodium 138 141 (137-145) mmol/L Potassium 3.7 3.5 (3.5-5.1) mmol/L Chloride 103 105 (98-107) mmol/L Carbon Dioxide 25 27 (22-30) mmol/L BUN 14 15 (7-17) mg/dL Creatinine 0.75 0.68 (0.52-1.04) mg/dL Glucose 177 H 109 H (74-99) mg/dL Calcium 9.5 9.5 (8.4-10.2) mg/dL AST 42 H (14-36) U/L ALT 29 (4-34) U/L Alkaline Phosphatase 104 (38-126) U/L Total Protein 7.5 (6.3-8.2) g/dL Albumin 4.6 (3.5-5.0) g/dL Current Medications Generic Name Dose Route Start Last Admin Trade Name Freq PRN Reason Stop Dose Admin Hydrocodone Bitart/Acetaminophen 1 each 03/25/23 00:15 03/25/23 00:19 Hydrocodone/Apap 7.5-325mg 1 Each Tab PO 1 each BID VENKAT Administration Naloxone HCl 0.2 mg 03/24/23 21:41 Naloxone 0.4 Mg/Ml 1 Ml Vial IV Q2M PRN Opioid Reversal Ondansetron HCl 4 mg 03/25/23 00:13 03/25/23 00:19 Ondansetron 4 Mg/2 Ml Vial IVP 4 mg Q6HR PRN Administration Nausea And Vomiting Intake and Output 03/24/23 03/25/23 03/25/23 22:59 06:59 14:59 Other: Voiding Method Toilet # Voids 1 Weight 83.461 kg 83.461 kg 03/25/23 06:02 03/25/23 06:02
--- NOTE | 2023-03-25 13:32 | P.DS ---
Providers Date of admission: 03/24/23 21:41 Attending physician: Kasey Montoya Consults: 03/24/23 21:41 Consult Physician Routine Consulting Provider: [facility] Consult Reason/Comments: chest pain Do you want consulting provider notified?: Yes Primary care physician: Damir Hernandez Patient is a 78-year-old female, came in with the complaints of chest pressure- like sensation found to have highly elevated blood pressures systolics going to 195/102. Patient also felt a dizzy, nauseous. Patient denied any shortness of breath her chest pressure is not pleuritic in nature, not associated with food or doesn't appear to be tested reflux disease. Patient's EKG did not show any acute ST-T wave changes but had some old T-wave inversions in lead 3 chest x-ray didn't show any significant abnormality possibly mild volume overload troponins were negative patient was a valid by cardiology. Patient was resumed on her home medications as per which had blood pressure has come down to 138/78. Patient's symptoms completely resolved cardio etiology evaluated the patient recommended an echocardiogram if that's within normal limits, patient can be discharged. REVIEW OF SYSTEMS: CONSTITUTIONAL: No fever, no malaise, no fatigue. HEENT: No recent visual problems or hearing problems. Denied any sore throat. CARDIOVASCULAR: No orthopnea, PND, no palpitations, no syncope. PULMONARY: No shortness of breath, no cough, no hemoptysis. GASTROINTESTINAL: No diarrhea, no nausea, no vomiting, no abdominal pain. NEUROLOGICAL: No headaches, no weakness, no numbness. HEMATOLOGICAL: Denies any bleeding or petechiae. GENITOURINARY: Denies any burning micturition, frequency, or urgency. MUSCULOSKELETAL/RHEUMATOLOGICAL: Denies any joint pain, swelling, or any muscle pain. ENDOCRINE: Denies any polyuria or polydipsia. The rest of the 14-point review of systems is negative. PHYSICAL EXAMINATION: GENERAL: The patient is alert and oriented x3, not in any acute distress. Well developed, well nourished. HEENT: Pupils are round and equally reacting to light. EOMI. No scleral icterus. No conjunctival pallor. Normocephalic, atraumatic. No pharyngeal erythema. No thyromegaly. CARDIOVASCULAR: S1 and S2 present. No murmurs, rubs, or gallops. PULMONARY: Chest is clear to auscultation, no wheezing or crackles. ABDOMEN: Soft, nontender, nondistended, normoactive bowel sounds. No palpable organomegaly. MUSCULOSKELETAL: No joint swelling or deformity. EXTREMITIES: No cyanosis, clubbing, or pedal edema. NEUROLOGICAL: Gross neurological examination did not reveal any focal deficits. SKIN: No rashes. Assessment and plan -Hypertensive urgency: Improved blood pressures chest pain may be secondary to elevated blood pressure. If echo is within normal lives patient will be discharged today Having chest pain atypical in nature troponins were negative rule out acute medicine syndromes -History of TIA with a loop recorder in place -Hyperlipidemia -Type 2 diabetes mellitus -History of super ventricular tachycardia -Restless leg syndrome -Glaucoma -Peripheral neuropathy and diabetic Neuropathy If echocardiogram is within normal notes patient will be discharged today Patient Condition at Discharge: Stable Plan - Discharge Summary New Discharge Prescriptions: Continue Fenofibrate [Lofibra] 160 mg PO DAILY Omeprazole 40 mg PO DAILY rOPINIRole HCL [Requip] 1 mg PO HS Desvenlafaxine Succinate [Pristiq] 100 mg PO DAILY Gabapentin [Neurontin] 300 mg PO BID Vit C/E/Zn/Coppr/Lutein/Zeaxan [Preservision Areds 2 Chew Tab] 1 tab PO BID Furosemide [Lasix] 20 mg PO Q48H HYDROcodone/APAP 7.5-325MG [[place] 7.5-325] 1 tab PO BID tiZANidine HCL [Zanaflex] 4 mg PO DAILY icosapent ethyL [Icosapent Ethyl] 2 gm PO BID HYDROcodone/APAP 7.5-325MG [[place] 7.5-325] 1.5 tab PO HS Ezetimibe [Zetia] 10 mg PO DAILY Losartan Potassium [Cozaar] 100 mg PO DAILY Metoprolol Succinate (ER) [Toprol XL] 100 mg PO DAILY Dapagliflozin Propanediol [Farxiga] 10 mg PO DAILY Clopidogrel [Plavix] 75 mg PO DAILY #30 tab Ketoconazole 2% Shampoo [Nizoral] 1 applic TOPICAL Q3D PRN PRN Reason: Skin Irritation Mirabegron [Myrbetriq] 50 mg PO DAILY Hydrocortisone Cream [Hydrocortisone 2.5% Cream] 1 applic TOPICAL BID PRN PRN Reason: Skin Irritation Discharge Medication List Fenofibrate [Lofibra] 160 mg PO DAILY 11/17/18 [History] Omeprazole 40 mg PO DAILY 10/14/20 [History] HYDROcodone/APAP 7.5-325MG [[place] 7.5-325] 1.5 tab PO HS 05/02/21 [History] Ezetimibe [Zetia] 10 mg PO DAILY 03/16/22 [History] rOPINIRole HCL [Requip] 1 mg PO HS 03/16/22 [History] Desvenlafaxine Succinate [Pristiq] 100 mg PO DAILY 04/07/22 [History] Gabapentin [Neurontin] 300 mg PO BID 04/07/22 [History] Vit C/E/Zn/Coppr/Lutein/Zeaxan [Preservision Areds 2 Chew Tab] 1 tab PO BID 04/07/22 [History] Losartan Potassium [Cozaar] 100 mg PO DAILY 04/28/22 [History] Dapagliflozin Propanediol [Farxiga] 10 mg PO DAILY 09/14/22 [History] Furosemide [Lasix] 20 mg PO Q48H 09/14/22 [History] HYDROcodone/APAP 7.5-325MG [[place] 7.5-325] 1 tab PO BID 09/14/22 [History] Metoprolol Succinate (ER) [Toprol XL] 100 mg PO DAILY 09/14/22 [History] Clopidogrel [Plavix] 75 mg PO DAILY #30 tab 01/01/23 [Rx] Hydrocortisone Cream [Hydrocortisone 2.5% Cream] 1 applic TOPICAL BID PRN 03/24/23 [History] Ketoconazole 2% Shampoo [Nizoral] 1 applic TOPICAL Q3D PRN 03/24/23 [History] Mirabegron [Myrbetriq] 50 mg PO DAILY 03/24/23 [History] icosapent ethyL [Icosapent Ethyl] 2 gm PO BID 03/24/23 [History] tiZANidine HCL [Zanaflex] 4 mg PO DAILY 03/24/23 [History] Follow up Appointment(s)/Referral(s): Damir Hernandez DO [Primary Care Provider] - 3 Days Discharge Disposition: HOME SELF-CARE
--- NOTE | 2023-03-25 13:32 | P.HPIM ---
History of Present Illness Patient is a 78-year-old female, came in with the complaints of chest pressure- like sensation found to have highly elevated blood pressures systolics going to 195/102. Patient also felt a dizzy, nauseous. Patient denied any shortness of breath her chest pressure is not pleuritic in nature, not associated with food or doesn't appear to be tested reflux disease. Patient's EKG did not show any acute ST-T wave changes but had some old T-wave inversions in lead 3 chest x-ray didn't show any significant abnormality possibly mild volume overload troponins were negative patient was a valid by cardiology. Patient was resumed on her home medications as per which had blood pressure has come down to 138/78. Patient's symptoms completely resolved cardio etiology evaluated the patient recommended an echocardiogram if that's within normal limits, patient can be discharged. REVIEW OF SYSTEMS: CONSTITUTIONAL: No fever, no malaise, no fatigue. HEENT: No recent visual problems or hearing problems. Denied any sore throat. CARDIOVASCULAR: No orthopnea, PND, no palpitations, no syncope. PULMONARY: No shortness of breath, no cough, no hemoptysis. GASTROINTESTINAL: No diarrhea, no nausea, no vomiting, no abdominal pain. NEUROLOGICAL: No headaches, no weakness, no numbness. HEMATOLOGICAL: Denies any bleeding or petechiae. GENITOURINARY: Denies any burning micturition, frequency, or urgency. MUSCULOSKELETAL/RHEUMATOLOGICAL: Denies any joint pain, swelling, or any muscle pain. ENDOCRINE: Denies any polyuria or polydipsia. The rest of the 14-point review of systems is negative. PHYSICAL EXAMINATION: GENERAL: The patient is alert and oriented x3, not in any acute distress. Well developed, well nourished. HEENT: Pupils are round and equally reacting to light. EOMI. No scleral icterus. No conjunctival pallor. Normocephalic, atraumatic. No pharyngeal erythema. No thyromegaly. CARDIOVASCULAR: S1 and S2 present. No murmurs, rubs, or gallops. PULMONARY: Chest is clear to auscultation, no wheezing or crackles. ABDOMEN: Soft, nontender, nondistended, normoactive bowel sounds. No palpable organomegaly. MUSCULOSKELETAL: No joint swelling or deformity. EXTREMITIES: No cyanosis, clubbing, or pedal edema. NEUROLOGICAL: Gross neurological examination did not reveal any focal deficits. SKIN: No rashes. Assessment and plan -Hypertensive urgency: Improved blood pressures chest pain may be secondary to elevated blood pressure. If echo is within normal lives patient will be discharged today Having chest pain atypical in nature troponins were negative rule out acute medicine syndromes -History of TIA with a loop recorder in place -Hyperlipidemia -Type 2 diabetes mellitus -History of super ventricular tachycardia -Restless leg syndrome -Glaucoma -Peripheral neuropathy and diabetic Neuropathy If echocardiogram is within normal notes patient will be discharged today Past Medical History Past Medical History: Cancer, Chest Pain / Angina, Diabetes Mellitus, Eye Disorder, Fibromyalgia, GERD/Reflux, Hearing Disorder / Deafness, Hyperlipidemia, Hypertension, Liver Disease, Musculoskeletal Disorder, Osteoarthritis (OA), Pneumonia, Supraventricular Tachycardia (SVT) Additional Past Medical History / Comment(s): Intestinal adhesions, RESTLESS LEG, Hiatal Hernia, MENIERES, DIVERTICULITIS, GLAUCOMA - right eye, NEUROPATHY bilateral legs, hx anemia, irregular heartbeat (not afib/flutter), DDD, difficulty hearing certain tones, gout, hx skin cancer, fatty liver. History of Any Multi-Drug Resistant Organisms: None Reported Past Surgical History: Appendectomy, Bladder Surgery, Bowel Resection, Cholecystectomy, Ear Surgery, Heart Catheterization, Hernia Repair, Hysterectomy, Joint Replacement, Orthopedic Surgery, Tonsillectomy, Tubal Ligation Additional Past Surgical History / Comment(s): Direct Microlaryngoscopy and removal of left vocal cord mass, right and left breast biopsy, diagnostic laparoscopy with lysis of adhesions, bilateral knee replacements, bilateral cataracts removed with lens implants, TUBE IN RIGHT EAR FOR MENIERES, LEFT THUMB SURGERY, hiatal hernia repair, abdominal ventral hernia repair, EGD with dilation X3, spur removed from left and right heel, total right hip replacement. Past Anesthesia/Blood Transfusion Reactions: Previous Problems w/ Anesthesia, Motion Sickness, Postoperative Nausea & Vomiting (PONV) Additional Past Anesthesia/Blood Transfusion Reaction / Comment(s): STATES "DIFFICULT INTUBATION-JAW LOCKED UP AFTER A PREVIOUS INTUBATION". "Have to use child size tube so jaw doesn't lock up". 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 Difficult IV start. Past Psychological History: Anxiety, Depression Smoking Status: Former smoker Past Alcohol Use History: Rare Additional Past Alcohol Use History / Comment(s): Smoked for 5 years, off and on, less then a ppd, quit 40 years ago. Past Drug Use History: None Reported - Past Family History Brother(s) Family Medical History: Cancer Mother Family Medical History: Cancer, Deep Vein Thrombosis (DVT), Pulmonary Embolus Additional Family Medical History / Comment(s): STOMACH CANCER. Father Family Medical History: No Reported History Additional Family Medical History / Comment(s): COMMITTED SUICIDE. Medications and Allergies Home Medications Medication Instructions Recorded Confirmed Type Fenofibrate [Lofibra] 160 mg PO DAILY 11/17/18 03/24/23 History Omeprazole 40 mg PO DAILY 10/14/20 03/24/23 History HYDROcodone/APAP 7.5-325MG [[place] 1.5 tab PO HS 05/02/21 03/24/23 History 7.5-325] Ezetimibe [Zetia] 10 mg PO DAILY 03/16/22 03/24/23 History rOPINIRole HCL [Requip] 1 mg PO HS 03/16/22 03/24/23 History Desvenlafaxine Succinate [Pristiq] 100 mg PO DAILY 04/07/22 03/24/23 History Gabapentin [Neurontin] 300 mg PO BID 04/07/22 03/24/23 History Vit C/E/Zn/Coppr/Lutein/Zeaxan 1 tab PO BID 04/07/22 03/24/23 History [Preservision Areds 2 Chew Tab] Losartan Potassium [Cozaar] 100 mg PO DAILY 04/28/22 03/24/23 History Dapagliflozin Propanediol [Farxiga] 10 mg PO DAILY 09/14/22 03/24/23 History Furosemide [Lasix] 20 mg PO Q48H 09/14/22 03/24/23 History HYDROcodone/APAP 7.5-325MG [[place] 1 tab PO BID 09/14/22 03/24/23 History 7.5-325] Metoprolol Succinate (ER) [Toprol 100 mg PO DAILY 09/14/22 03/24/23 History XL] Clopidogrel [Plavix] 75 mg PO DAILY #30 tab 01/01/23 03/24/23 Rx Hydrocortisone Cream 1 applic TOPICAL BID PRN 03/24/23 03/24/23 History [Hydrocortisone 2.5% Cream] Ketoconazole 2% Shampoo [Nizoral] 1 applic TOPICAL Q3D PRN 03/24/23 03/24/23 History Mirabegron [Myrbetriq] 50 mg PO DAILY 03/24/23 03/24/23 History icosapent ethyL [Icosapent Ethyl] 2 gm PO BID 03/24/23 03/24/23 History tiZANidine HCL [Zanaflex] 4 mg PO DAILY 03/24/23 03/24/23 History Allergies Allergy/AdvReac Type Severity Reaction Status Date / Time adhesive Allergy Rash/Hives Verified 03/24/23 21:23 Penicillins Allergy Rash/Hives Verified 03/24/23 21:23 Eqggsux-LMP-EuR Reductase Allergy Rash/Hives Verified 03/24/23 21:23 Inhibitor [Bbyljqw-Zcq-Guj Reductase Inhibitor] aspirin AdvReac STOMACH Verified 03/24/23 21:23 UPSET/HEARTBURN Physical Exam Vitals: Vital Signs Temp Pulse Pulse Resp BP BP BP 03/25/23 07:00 98.6 F 72 16 138/78 03/25/23 02:38 98.2 F 67 16 158/76 03/25/23 02:00 16 03/24/23 23:55 98.3 F 64 18 146/72 03/24/23 22:58 65 18 139/82 03/24/23 21:00 70 16 146/79 03/24/23 20:48 71 03/24/23 19:18 97.6 F 55 L 18 138/87 Pulse Ox 03/25/23 07:00 96 03/25/23 02:38 95 03/25/23 02:00 03/24/23 23:55 94 L 03/24/23 22:58 94 L 03/24/23 21:00 96 03/24/23 20:48 03/24/23 19:18 95 Intake and Output 03/24/23 03/25/23 03/25/23 22:59 06:59 14:59 Other: Voiding Method Toilet # Voids 1 Weight 83.461 kg 83.461 kg Results CBC & Chem 7: 03/25/23 06:02 03/25/23 06:02 Labs: Abnormal Lab Results - Last 24 Hours (Table) 03/24/23 03/24/23 03/25/23 Range/Units 19:24 19:24 06:02 APTT 19.5 L (22.0-30.0) sec Glucose 177 H 109 H (74-99) mg/dL AST 42 H (14-36) U/L Urine Appearance (Clear) Urine Protein (Negative) Urine Glucose (UA) (Negative) Urine Ketones (Negative) Urine RBC (0-5) /hpf Urine WBC (0-5) /hpf Urine Bacteria (None) /hpf Urine Mucus (None) /hpf 03/25/23 Range/Units 08:43 APTT (22.0-30.0) sec Glucose (74-99) mg/dL AST (14-36) U/L Urine Appearance Cloudy H (Clear) Urine Protein 3+ H (Negative) Urine Glucose (UA) 4+ H (Negative) Urine Ketones Trace H (Negative) Urine RBC 7 H (0-5) /hpf Urine WBC 21 H (0-5) /hpf Urine Bacteria Many H (None) /hpf Urine Mucus Few H (None) /hpf Thrombosis Risk Factor Assmnt - Choose All That Apply Each Factor Represents 1 point: Obesity (BMI >25) Each Risk Factor Represents 3 Points: Age 75 years or older Thrombosis Risk Factor Assessment Total Risk Factor Score: 4 Thrombosis Risk Factor Assessment Level: Moderate Risk
[2023-03-25 15:36] VITALS: BP 142/75; PULSE 52; TEMP 98.1
--- NOTE | 2023-03-25 16:49 | CA ---
Transthoracic Echo Report Name: Karolina Augustin Age: 78 Gender: F : 1945 Exam Date: 03/25/2023 13:08 Exam Location: [facility] Ht (in): 63 Wt (lb): 184 Ordering Physician: Lisa Smith Attending/Referring Phys: [id number], Sarah Microbiology Director Kae Medina [facility] Procedure CPT: Indications: LV function, CP Cardiac Hx: Technical Quality: Fair Contrast 1: Total Dose (mL): Contrast 2: Total Dose (mL): MEASUREMENTS (Male / Female) Normal Values 2D ECHO LV Diastolic Diameter PLAX 3.9 cm 4.2 - 5.9 / 3.9 - 5.3 cm LV Systolic Diameter PLAX 2.3 cm IVS Diastolic Thickness 0.8 cm 0.6 - 1.0 / 0.6 - 0.9 cm LVPW Diastolic Thickness 0.8 cm 0.6 - 1.0 / 0.6 - 0.9 cm LV Relative Wall Thickness 0.4 Ascending Aorta Diameter 2.7 cm DOPPLER Mitral E Point Velocity 85.7 cm/s Mitral A Point Velocity 107.4 cm/s Mitral E to A Ratio 0.8 MV Deceleration Time 249.4 ms LV E' Lateral Velocity 7.6 cm/s Mitral E to LV E' Lateral Ratio 11.3 LV E' Septal Velocity 4.5 cm/s Mitral E to LV E' Septal Ratio 18.9 TR Peak Velocity 230.8 cm/s TR Peak Gradient 21.3 mmHg Right Atrial Pressure 3.0 mmHg Pulmonary Artery Systolic Pressu 24.3 mmHg Right Ventricular Systolic Press 24.3 mmHg FINDINGS Left Ventricle Limited study. Normal Left ventricular size, wall thickness, systolic function with no obvious regional wall motion abnormalities. Left ventricular ejection fraction is estimated at 55-60%. Right Ventricle Right Atrium Left Atrium Mitral Valve Aortic Valve Tricuspid Valve Structurally normal tricuspid valve. Mild tricuspid regurgitation. Pulmonic Valve Pericardium No pericardial effusion. Echo free space anterior to the right ventricle likely represents a fat pad. Aorta CONCLUSIONS Normal LV function Mild tricuspid regurgitation Previewed by: Dr. Radhames Dewey MD (Electronically Signed) Final Date: 25 March 2023 16:48
== END 2023-03-25 18:08 | disposition home or self-care (01) ==
LOC: EC 19:15 → 6NMEDSUR 21:41
PROVIDERS: ADMIT Hospitalist; ATTEND Hospitalist
DX: I16.0 Hypertensive urgency (principal); R07.89 Other chest pain; Z86.73 Personal history of transient ischemic attack (TIA), and cerebral infarction without residual deficits; Z95.818 Presence of other cardiac implants and grafts; E78.5 Hyperlipidemia, unspecified; E11.51 Type 2 diabetes mellitus with diabetic peripheral angiopathy without gangrene; I47.1 Supraventricular tachycardia; G25.81 Restless legs syndrome; H40.9 Unspecified glaucoma; K21.9 Gastro-esophageal reflux disease without esophagitis; H91.90 Unspecified hearing loss, unspecified ear; M79.7 Fibromyalgia; M19.90 Unspecified osteoarthritis, unspecified site; H81.09 Meniere's disease, unspecified ear; M10.9 Gout, unspecified; I10 Essential (primary) hypertension; I65.29 Occlusion and stenosis of unspecified carotid artery; I08.1 Rheumatic disorders of both mitral and tricuspid valves; K76.0 Fatty (change of) liver, not elsewhere classified; Z96.653 Presence of artificial knee joint, bilateral; Z98.51 Tubal ligation status; Z90.710 Acquired absence of both cervix and uterus; Z90.49 Acquired absence of other specified parts of digestive tract; Z96.641 Presence of right artificial hip joint; Z98.42 Cataract extraction status, left eye; Z98.41 Cataract extraction status, right eye; Z96.1 Presence of intraocular lens; Z98.890 Other specified postprocedural states; F41.9 Anxiety disorder, unspecified; F32.A Depression, unspecified; Z85.828 Personal history of other malignant neoplasm of skin; Z87.891 Personal history of nicotine dependence; Z80.0 Family history of malignant neoplasm of digestive organs; Z82.49 Family history of ischemic heart disease and other diseases of the circulatory system; Z79.84 Long term (current) use of oral hypoglycemic drugs; Z79.02 Long term (current) use of antithrombotics/antiplatelets; Z79.891 Long term (current) use of opiate analgesic; Z79.899 Other long term (current) drug therapy; Z88.0 Allergy status to penicillin; Z88.6 Allergy status to analgesic agent; Z88.8 Allergy status to other drugs, medicaments and biological substances; Z91.09 Other allergy status, other than to drugs and biological substances
CPT/HCPCS: 96375 ×2; 96374; 99285; 36415; 93005; 93308; 83880; 80053; 80048; 83735; 84484 ×2; 85025 ×2; 85610; 85730; 81001; 71046; G0378 ×2; J1200; J2765; J2405

== ENCOUNTER 2023-04-17 09:50 | Day surgery (SDC) | payer MEDICARE ==
[2023-04-14 12:02] VITALS: BMI 33.1
[~2023-04-17 09:50] MED LIST changes: -DEXAMETHASONE SOD PHOSPHATE 4 MG/ML 1 ML VIAL IV ONE; -LIDOCAINE 1% (10MG/ML) FOR IV START INTRADERMA PRN; -MIDAZOLAM 2 MG/2 ML VIAL IV PRN; -ONDANSETRON 4 MG/2 ML VIAL IVP ONE
[2023-04-17 10:38] LABS: Glucose,Whole Blood 113 mg/dL (70-110)
[2023-04-17] MEDS ORDERED: LACTATED RINGERS 1,000 ML IV ONE ×3 (10:53→14:09)
[2023-04-17] MEDS ORDERED: ONDANSETRON 4 MG/2 ML VIAL ONE (10:55)
[2023-04-17] MEDS ORDERED: ONDANSETRON 4 MG/2 ML VIAL IVP ONE (11:00)
[2023-04-17] MEDS ORDERED: DEXAMETHASONE SOD PHOSPHATE 4 MG/ML 1 ML VIAL IVP ONE (11:00)
[2023-04-17] MEDS ORDERED: MIDAZOLAM 2 MG/2 ML VIAL ONE (12:32)
[2023-04-17] MEDS ORDERED: SUCCINYLCHOLINE CHLORIDE 200 MG/10 ML VIAL IV ONE (12:32)
[2023-04-17] MEDS ORDERED: fentaNYL (PF) 50 MCG/ML 2 ML AMP ONE (12:32)
[2023-04-17] MEDS ORDERED: LIDOCAINE 2% INJ 20 MG/ML (2 ML VIAL) ONE (12:32)
[2023-04-17] MEDS ORDERED: NEOSTIGMINE 1 MG/ML 10 ML VIAL ONE (12:32)
[2023-04-17] MEDS ORDERED: ROCURONIUM 10 MG/ML (5 ML VIAL) IV ONE (12:32)
[2023-04-17] MEDS ORDERED: KETOROLAC 15 MG/ML 1 ML VIAL ONE (12:32)
[2023-04-17] MEDS ORDERED: ePHEDrine 50 MG/ML 1 ML VIAL ONE (12:32)
[2023-04-17] MEDS ORDERED: PROPOFOL 10 MG/ML 20 ML VIAL IV ONE (12:32)
[2023-04-17] MEDS ORDERED: GLYCOPYRROLATE 0.2 MG/ML 2 ML VIAL ONE (12:32)
[2023-04-17] MEDS ORDERED: SODIUM CHLORIDE 0.9% 50 ML with ceFAZolin 2,000 MG IV ONE ×2 (12:37)
[2023-04-17] MEDS ORDERED: HYDROmorphone 0.5 MG/0.5 ML SYRINGE IVP PRN (14:09)
[2023-04-17] MEDS ORDERED: ONDANSETRON 4 MG/2 ML VIAL IVP PRN (14:09)
[2023-04-17] MEDS ORDERED: ACETAMINOPHEN TAB 325 MG TAB PO PRN (14:09)
[2023-04-17] MEDS ORDERED: NALOXONE 0.4 MG/ML 1 ML VIAL IV PRN (14:09)
[2023-04-17] MEDS ORDERED: HYDROmorphone 0.5 MG/0.5 ML SYRINGE IVP ONE ×4 (14:10→15:26)
[2023-04-17 18:01] LABS: Glucose,Whole Blood 175 mg/dL (70-110)
[2023-04-17] MEDS: KETOROLAC 15 MG/ML 1 ML VIAL IVP SCH ×2 (18:03→23:57)
[2023-04-17] MEDS ORDERED: tiZANidine 4 MG TAB PO PRN (18:29)
[2023-04-17] MEDS ORDERED: HYDROcodone/APAP 7.5-325MG 1 EACH TAB PO PRN (18:31)
[2023-04-17] MEDS ORDERED: DEXTROSE 50% SYRINGE 50 ML IVP PRN ×2 (18:32)
[2023-04-17 20:37] LABS: Glucose,Whole Blood 181 mg/dL (70-110)
[2023-04-17] MEDS: GABAPENTIN 300 MG CAP PO SCH (20:44)
[2023-04-17] MEDS: INSULIN ASPART (NovoLOG) 100 UNIT/ML VIAL SQ SCH (20:45)
[2023-04-18 05:52] LABS: Glucose,Whole Blood 109 mg/dL (70-110)
[2023-04-18] MEDS: KETOROLAC 15 MG/ML 1 ML VIAL IVP SCH ×2 (05:53→12:21)
[2023-04-18] MEDS: INSULIN ASPART (NovoLOG) 100 UNIT/ML VIAL SQ SCH ×2 (05:55→12:20)
[2023-04-18 06:17] LABS: Basophils % (A) 1 %; Eosinophils # (A) 0.1 k/uL (0-0.7); Eosinophils % (A) 1 %; HCT 37.3 % (34.0-46.0); HGB 12.4 gm/dL (11.4-16.0); Lymphocytes # (A) 1.6 k/uL (1.0-4.8); Lymphocytes % (A) 22 %; MCH 27.7 pg (25.0-35.0); MCHC 33.2 g/dL (31.0-37.0); MCV 83.6 fL (80.0-100.0); Monocytes # (A) 0.4 k/uL (0-1.0); Monocytes % (A) 6 %; Neutrophils # (A) 5.1 k/uL (1.3-7.7); Neutrophils % (A) 70 %; Platelet Count 216 k/uL (150-450); RBC 4.46 m/uL (3.80-5.40); RDW 14.8 % (11.5-15.5); WBC 7.4 k/uL (3.8-10.6)
[2023-04-18 06:22] LABS: African American GFR (CKD) >90 (>60 ml/min/1.73 sqM); Anion Gap 8 mmol/L; Blood Urea Nitrogen 21 mg/dL (7-17); Calcium 9.1 mg/dL (8.4-10.2); Carbon Dioxide 25 mmol/L (22-30); Chloride 105 mmol/L (98-107); Glucose 99 mg/dL (74-99); Magnesium 1.6 mg/dL (1.6-2.3); Non-African American GFR(CKD) 88 (>60 ml/min/1.73 sqM); Potassium 3.6 mmol/L (3.5-5.1); Sodium 138 mmol/L (137-145)
[2023-04-18 07:48] VITALS: RESP 16; TEMP 98.2
[2023-04-18] MEDS: GABAPENTIN 300 MG CAP PO SCH (08:28)
[2023-04-18] MEDS ORDERED: amLODIPine 10 MG TAB PO SCH (09:00)
[2023-04-18] MEDS ORDERED: PANTOPRAZOLE 40 MG/10 ML VIAL IVP SCH (09:00)
[2023-04-18] MEDS ORDERED: CLOPIDOGREL 75 MG TAB PO SCH (09:00)
[2023-04-18] MEDS ORDERED: LOSARTAN 50 MG TAB PO SCH (09:00)
[2023-04-18] MEDS ORDERED: DESVENLAFAXINE SUCCINATE 50 MG TAB.ER.24H PO SCH (09:00)
[2023-04-18] MEDS ORDERED: ENOXAPARIN 40 MG/0.4 ML SYRINGE SQ SCH (09:00)
[2023-04-18] MEDS ORDERED: METOPROLOL SUCCINATE (ER) 100 MG TAB.ER.24H PO SCH (09:00)
[2023-04-18] MEDS ORDERED: FENOFIBRATE 160 MG TAB PO SCH (09:00)
[2023-04-18] MEDS ORDERED: EZETIMIBE 10 MG TAB PO SCH (09:00)
[2023-04-18] MEDS ORDERED: Magnesium Replacement Protocol 1 EACH MISC MISCELLANE PRN (09:52)
[2023-04-18] MEDS: MAGNESIUM SULFATE-D5W PMX 1 GM in DEXTROSE/WATER 1 100ML.BAG IVPB SCH ×2 (10:33→11:46)
--- NOTE | 2023-04-18 11:18 | P.OP ---
Date of Procedure: 04/17/23 Preoperative Diagnosis: Incisional hernia Postoperative Diagnosis: Incisional hernia Procedure(s) Performed: Open repair of incisional hernia with onlay Prolene mesh Anesthesia: OANH Surgeon: Bonifacio Squires Estimated Blood Loss (ml): 25 Pathology: none sent Condition: stable Disposition: PACU Operative Findings: Incisional hernia measuring 20 x 8 cm Description of Procedure: Patient's placed on the operative table in the supine position. She received general endotracheal tube anesthesia. Her abdomen was prepped and draped usual fashion. Patient appears midline laparotomy scar. There was a incisional hernia located along the left paramedial area. The skin was incised using blunt and sharp dissection with cautery the subcutaneous tissues were divided. Hernia sac was found. Hernia sac was dissected free from the subcutaneous tissues. The fascia was exposed using left cautery. The hernia defect measured approximately 20 x 8 cm. The hernia sac was invaginated and then the fascia was reapproximated using [id number] Ethibond suture. #1 Syed fix was then used to buttress the repair. A piece of Prolene hernia mesh was cut to an appropriate size and secured with secure strap tacker. A ISAEL drains was removed the repair and brought through separate stab incision Justice's fascia closed with 0 Vicryl. Skin was closed ayse. Patient top she will she was sent to recovery room stable condition.
[2023-04-18 11:56] LABS: Glucose,Whole Blood 129 mg/dL (70-110)
--- NOTE | 2023-04-18 13:57 | P.DS ---
Providers Expected date of discharge: 04/18/23 Attending physician: Bonifcaio Squires Consults: 04/17/23 14:09 Consult Physician Routine Consulting Provider: Isabela Fragoso Consult Reason/Comments: Medical management Do you want consulting provider notified?: Yes Primary care physician: Damir Hernandez [facility] Course: Discharge diagnosis 1. Incisional hernia status post open repair of incisional hernia with Prolene mesh Hospital course This is a 78-year-old female with incisional hernia she status post open repair of incisional hernia with mesh. Her pain is controlled. She is tolerating diet. She has been up and ambulating. Afebrile. Prevana wound vac intact. Patient is stable for discharge. Please refer to chart for any further details. Physician Maintenance Clerk note has been reviewed by physician. Signing provider agrees with the documented findings, assessment, and plan of care. Patient Condition at Discharge: Stable Plan - Discharge Summary Discharge Rx Participant: No New Discharge Prescriptions: New HYDROcodone/APAP 7.5-325MG [[place] 7.5-325] 1 tab PO Q6HR PRN 3 Days #12 tab PRN Reason: Pain No Action Fenofibrate [Lofibra] 160 mg PO DAILY Omeprazole 40 mg PO DAILY rOPINIRole HCL [Requip] 1 mg PO HS Desvenlafaxine Succinate [Pristiq] 100 mg PO DAILY Gabapentin [Neurontin] 300 mg PO BID Vit C/E/Zn/Coppr/Lutein/Zeaxan [Preservision Areds 2 Chew Tab] 1 tab PO BID Furosemide [Lasix] 20 mg PO DAILY HYDROcodone/APAP 7.5-325MG [[place] 7.5-325] 1 tab PO BID tiZANidine HCL [Zanaflex] 4 mg PO DAILY icosapent ethyL [Icosapent Ethyl] 2 gm PO BID amLODIPine [Norvasc] 10 mg PO DAILY HYDROcodone/APAP 7.5-325MG [[place] 7.5-325] 1.5 tab PO HS Ezetimibe [Zetia] 10 mg PO DAILY Losartan Potassium [Cozaar] 100 mg PO DAILY Metoprolol Succinate (ER) [Toprol XL] 100 mg PO DAILY Clopidogrel [Plavix] 75 mg PO DAILY #30 tab Meclizine [Antivert] 25 mg PO DIRECTED PRN PRN Reason: vertigo Discharge Medication List Fenofibrate [Lofibra] 160 mg PO DAILY 11/17/18 [History] Omeprazole 40 mg PO DAILY 10/14/20 [History] HYDROcodone/APAP 7.5-325MG [[place] 7.5-325] 1.5 tab PO HS 05/02/21 [History] Ezetimibe [Zetia] 10 mg PO DAILY 03/16/22 [History] rOPINIRole HCL [Requip] 1 mg PO HS 03/16/22 [History] Desvenlafaxine Succinate [Pristiq] 100 mg PO DAILY 04/07/22 [History] Gabapentin [Neurontin] 300 mg PO BID 04/07/22 [History] Vit C/E/Zn/Coppr/Lutein/Zeaxan [Preservision Areds 2 Chew Tab] 1 tab PO BID 04/07/22 [History] Losartan Potassium [Cozaar] 100 mg PO DAILY 04/28/22 [History] Furosemide [Lasix] 20 mg PO DAILY 09/14/22 [History] HYDROcodone/APAP 7.5-325MG [[place] 7.5-325] 1 tab PO BID 09/14/22 [History] Metoprolol Succinate (ER) [Toprol XL] 100 mg PO DAILY 09/14/22 [History] Clopidogrel [Plavix] 75 mg PO DAILY #30 tab 01/01/23 [Rx] icosapent ethyL [Icosapent Ethyl] 2 gm PO BID 03/24/23 [History] tiZANidine HCL [Zanaflex] 4 mg PO DAILY 03/24/23 [History] Meclizine [Antivert] 25 mg PO DIRECTED PRN 04/14/23 [History] amLODIPine [Norvasc] 10 mg PO DAILY 04/14/23 [History] HYDROcodone/APAP 7.5-325MG [[place] 7.5-325] 1 tab PO Q6HR PRN 3 Days #12 tab 04/18/23 [Rx] Follow up Appointment(s)/Referral(s): [facility] [NON-STAFF] - 1 Week Bonifacio Squires MD [STAFF PHYSICIAN] - 04/25/23 2:20 pm Activity/Diet/Wound Care/Special Instructions: No driving while taking [place] No lifting over 10 pounds Shower daily. No soaking or tub baths for 2 weeks Very light activity until you are reevaluated at your follow up appointment with your surgeon Discharge Disposition: HOME SELF-CARE
--- NOTE | 2023-04-18 14:22 | P.HPIM ---
History of Present Illness H&P Date: 04/18/23 Patient is a a 78-year-old female with medical history of Diabetes mellitus, gastroesophageal reflux disease, hypertension, hyperlipidemia, diabetic neuropathy, cardiac catheterization, anxiety/depression and former smoker. Patient is admitted for elective open hernia repair of an incisional hernia with onlay Prolene mesh placement. Patient is evaluated today she is postoperative day #1. She currently reports moderate abdominal pain worse with ambulation. She does have a midline wound VAC in place. Bowel sounds are hypoactive patient encouarged to wear the abominal binder and to increase activity level as tolerated. Postoperatively she has been resumed on regular diet and tolerating. Patient will be ordered an incentive spirometer to use postoperatively. Patient denying chest pain, denying shortness of breath, no nausea or vomiting. Labs today are essentially unremarkable white blood cell count normal, hemoglobin normal. Magnesium 1.6 and potassium 3.6 both were supplemented. Blood glucose in the 120-180 range was receiving s/s insulin while in the hospital. Medically patient is doing well postoperatively and can be discharged home if cleared by primary. REVIEW OF SYSTEMS: CONSTITUTIONAL: No fever, no malaise, no fatigue. HEENT: No recent visual problems or hearing problems. Denied any sore throat. CARDIOVASCULAR: No chest pain, orthopnea, PND, no palpitations, no syncope. PULMONARY: No shortness of breath, no cough, no hemoptysis. GASTROINTESTINAL: No diarrhea, no nausea, no vomiting, Reporting mild 5/10 abdominal discomfort worse with ambulation. No bowel movement yet. NEUROLOGICAL: No headaches, no weakness, no numbness. HEMATOLOGICAL: Denies any bleeding or petechiae. GENITOURINARY: Denies any burning micturition, frequency, or urgency. MUSCULOSKELETAL/RHEUMATOLOGICAL: Denies any joint pain, swelling, or any muscle pain. ENDOCRINE: Denies any polyuria or polydipsia. The rest of the 14-point review of systems is negative. PHYSICAL EXAMINATION: GENERAL: The patient is alert and oriented x3, not in any acute distress. Well developed, well nourished. HEENT: Pupils are round and equally reacting to light. EOMI. No scleral icterus. No conjunctival pallor. Normocephalic, atraumatic. No pharyngeal erythema. No thyromegaly. CARDIOVASCULAR: S1 and S2 present. No murmurs, rubs, or gallops. PULMONARY: Chest is clear to auscultation, no wheezing or crackles. ABDOMEN: Soft, nontender, nondistended, hypoactive bowel sounds. No palpable organomegaly. Post surgical with midline woundvac in place. MUSCULOSKELETAL: No joint swelling or deformity. EXTREMITIES: No cyanosis, clubbing, or pedal edema. NEUROLOGICAL: Gross neurological examination did not reveal any focal deficits. SKIN: No rashes. Assessment Incisional hernia postop day #1 incisional hernia repair with onlay mesh. Hypertension currently controlled and recommend to continue on same home medications and monitor BP at home Diabetes Mellitus type 2 controlled with diet sliding scale insulin ordered while inpatient patient will not require any insulin on discharge Gastroesophageal reflux disease on omeprazole to continue on discharge Diabetic neuropathy Hyperlipidemia hx History of cardiac catheterization Anxiety/depression not an active issue Former smoker Obesity GI prophyalxis DVT prophylaxis as per primary Full Code Plan Patient to continue on the same home medications and recommend to provide patient with an abdominal binder and incentive spirometer prior to discharge. Patient should complete IS 10 x an hour while awake. Increase activity as tolerated and patient to continue on a bowel regimen while using narcotic for pain management. Patient to follow up with BMP in 2 to 3 days on discharge and follow up with PCP in 1 to 2 days, pt follows with Dr. Damir Hernanedz outpatient. Appointment has been made with Dr. Squires for follow up on apr h at 220 pm. ISAEL drain remains in place for discharge. The impression and plan of care has been dictated by Dilma Mcdonald Nurse Practitioner as directed. Dr. Fouzia MD I have performed a history and physical examination and medical decision making of this patient, discussed the same with the dictator, and agree with the dictators assessment and plan as written, documented as a scribe. Based on total visit time, I have performed more than 50% of this visit. Past Medical History Past Medical History: Cancer, Chest Pain / Angina, Diabetes Mellitus, Eye Disorder, Fibromyalgia, GERD/Reflux, Hearing Disorder / Deafness, Hyperlipidemia, Hypertension, Liver Disease, Musculoskeletal Disorder, Osteoarthritis (OA), Pneumonia, Supraventricular Tachycardia (SVT) Additional Past Medical History / Comment(s): Intestinal adhesions, RESTLESS LEG, Hiatal Hernia, MENIERES, DIVERTICULITIS, GLAUCOMA - right eye, NEUROPATHY bilateral legs, hx anemia, irregular heartbeat (not afib/flutter), DDD, difficulty hearing certain tones, gout, hx skin cancer, fatty liver. History of Any Multi-Drug Resistant Organisms: None Reported Past Surgical History: Appendectomy, Bladder Surgery, Bowel Resection, Cholecystectomy, Ear Surgery, Heart Catheterization, Hernia Repair, Hysterectomy, Joint Replacement, Orthopedic Surgery, Tonsillectomy, Tubal Ligation Additional Past Surgical History / Comment(s): Direct Microlaryngoscopy and removal of left vocal cord mass, right and left breast biopsy, diagnostic laparoscopy with lysis of adhesions, bilateral knee replacements, bilateral cataracts removed with lens implants, TUBE IN RIGHT EAR FOR MENIERES, LEFT THUMB SURGERY, hiatal hernia repair, abdominal ventral hernia repair, EGD with di lation X3, spur removed from left and right heel, total right hip replacement. Past Anesthesia/Blood Transfusion Reactions: Previous Problems w/ Anesthesia, Motion Sickness, Postoperative Nausea & Vomiting (PONV) Additional Past Anesthesia/Blood Transfusion Reaction / Comment(s): STATES "DIFFICULT INTUBATION-JAW LOCKED UP AFTER A PREVIOUS INTUBATION". "Have to use child size tube so jaw doesn't lock up". 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 Difficult IV start. Smoking Status: Former smoker - Past Family History Brother(s) Family Medical History: Cancer Mother Family Medical History: Cancer, Deep Vein Thrombosis (DVT), Pulmonary Embolus Additional Family Medical History / Comment(s): STOMACH CANCER. Father Family Medical History: No Reported History Additional Family Medical History / Comment(s): COMMITTED SUICIDE. Medications and Allergies Home Medications Medication Instructions Recorded Confirmed Type Fenofibrate [Lofibra] 160 mg PO DAILY 11/17/18 04/14/23 History Omeprazole 40 mg PO DAILY 10/14/20 04/14/23 History HYDROcodone/APAP 7.5-325MG [Dawn 1.5 tab PO HS 05/02/21 04/14/23 History 7.5-325] Ezetimibe [Zetia] 10 mg PO DAILY 03/16/22 04/14/23 History rOPINIRole HCL [Requip] 1 mg PO HS 03/16/22 04/14/23 History Desvenlafaxine Succinate [Pristiq] 100 mg PO DAILY 04/07/22 04/14/23 History Gabapentin [Neurontin] 300 mg PO BID 04/07/22 04/14/23 History Vit C/E/Zn/Coppr/Lutein/Zeaxan 1 tab PO BID 04/07/22 04/14/23 History [Preservision Areds 2 Chew Tab] Losartan Potassium [Cozaar] 100 mg PO DAILY 04/28/22 04/14/23 History Furosemide [Lasix] 20 mg PO DAILY 09/14/22 04/14/23 History HYDROcodone/APAP 7.5-325MG [Dawn 1 tab PO BID 09/14/22 04/14/23 History 7.5-325] Metoprolol Succinate (ER) [Toprol 100 mg PO DAILY 09/14/22 04/14/23 History XL] Clopidogrel [Plavix] 75 mg PO DAILY #30 tab 01/01/23 04/14/23 Rx icosapent ethyL [Icosapent Ethyl] 2 gm PO BID 03/24/23 04/14/23 History tiZANidine HCL [Zanaflex] 4 mg PO DAILY 03/24/23 04/14/23 History Meclizine [Antivert] 25 mg PO DIRECTED PRN 04/14/23 04/14/23 History amLODIPine [Norvasc] 10 mg PO DAILY 04/14/23 04/14/23 History HYDROcodone/APAP 7.5-325MG [Dawn 1 tab PO Q6HR PRN 3 Days #12 tab 04/18/23 Rx 7.5-325] Allergies Allergy/AdvReac Type Severity Reaction Status Date / Time adhesive Allergy Rash/Hives Verified 04/17/23 10:14 Penicillins Allergy Rash/Hives Verified 04/17/23 10:14 Molyshc-SLM-LdZ Reductase Allergy Rash/Hives Verified 04/17/23 10:14 Inhibitor [Dpjzimw-Gmi-Mkw Reductase Inhibitor] aspirin AdvReac STOMACH Verified 04/17/23 10:14 UPSET/HEARTBURN Physical Exam Vitals: Vital Signs Temp Pulse Pulse Resp BP Pulse Ox 04/18/23 07:00 98.2 F 78 16 138/82 95 04/18/23 02:16 97.7 F 78 15 129/76 97 04/17/23 19:23 97.4 F L 87 14 148/83 96 04/17/23 18:17 86 16 04/17/23 17:58 98.1 F 86 16 146/83 95 04/17/23 17:31 83 16 136/70 96 04/17/23 16:35 84 16 130/70 95 04/17/23 16:05 80 16 143/69 96 04/17/23 15:50 80 16 134/63 98 04/17/23 15:35 81 16 123/68 96 04/17/23 15:20 83 16 129/60 96 04/17/23 15:05 80 16 137/66 98 04/17/23 14:50 80 16 129/64 96 04/17/23 14:35 79 16 139/65 95 04/17/23 14:20 79 16 155/66 95 04/17/23 14:05 75 16 156/69 95 04/17/23 13:51 97.2 F L 77 14 182/80 93 L 04/17/23 10:09 97.7 F 61 16 161/75 98 Intake and Output 04/17/23 04/18/23 04/18/23 22:59 06:59 14:59 Output Total 10 60 Balance -10 -60 Output: Drainage 10 60 Right Abdomen 10 60 Other: Voiding Method Toilet # Voids 1 2 Weight 85.3 kg Results CBC & Chem 7: 04/18/23 05:31 04/18/23 05:31 Labs: Abnormal Lab Results - Last 24 Hours (Table) 04/17/23 04/17/23 04/17/23 Range/Units 10:31 18:00 20:36 BUN (7-17) mg/dL POC Glucose (mg/dL) 113 H 175 H 181 H (70-110) mg/dL 04/18/23 Range/Units 05:31 BUN 21 H (7-17) mg/dL POC Glucose (mg/dL) (70-110) mg/dL Thrombosis Risk Factor Assmnt - Choose All That Apply Any of the Below Risk Factors Present?: Yes Each Factor Represents 1 point: Obesity (BMI >25) Other Risk Factors: Yes Each Risk Factor Represents 2 Points: Major surgery Each Risk Factor Represents 3 Points: Age 75 years or older, Family history of DVT/PE Other congenital or acquired thrombophilia - If yes, enter type in comment: No Thrombosis Risk Factor Assessment Total Risk Factor Score: 9 Thrombosis Risk Factor Assessment Level: High Risk Assessment and Plan Time with Patient: Less than 30
[2023-04-18 14:39] VITALS: BP 111/64; PULSE 64
== END 2023-04-18 16:10 | disposition home or self-care (01) ==
LOC: OR 09:50 → 6NMEDSUR 13:38 → OR 04-18 16:10
PROVIDERS: ATTEND Surgery
DX: K43.2 Incisional hernia without obstruction or gangrene (principal); I10 Essential (primary) hypertension; I47.1 Supraventricular tachycardia; M19.90 Unspecified osteoarthritis, unspecified site; Z85.828 Personal history of other malignant neoplasm of skin; E11.40 Type 2 diabetes mellitus with diabetic neuropathy, unspecified; M79.7 Fibromyalgia; G25.81 Restless legs syndrome; K21.9 Gastro-esophageal reflux disease without esophagitis; Z79.02 Long term (current) use of antithrombotics/antiplatelets; E78.5 Hyperlipidemia, unspecified; E66.9 Obesity, unspecified; K76.0 Fatty (change of) liver, not elsewhere classified; Z87.891 Personal history of nicotine dependence; Z88.6 Allergy status to analgesic agent; Z88.8 Allergy status to other drugs, medicaments and biological substances; Z88.0 Allergy status to penicillin; Z90.49 Acquired absence of other specified parts of digestive tract; Z96.641 Presence of right artificial hip joint; Z68.30 Body mass index [BMI] 30.0-30.9, adult; Z79.899 Other long term (current) drug therapy
CPT/HCPCS: 97162; 80048; 83735; 85025; 49595; C1781; J1100; J2405; J0690; J1650; J3475; J1885 ×2; C9113; J1170; J1644

== ENCOUNTER → 2023-04-21 | Outpatient (CLI) | payer MEDICARE ==
[2023-04-21 22:01] LABS: BUN/Creat Ratio 21.17 Ratio (12.00-20.00); Blood Urea Nitrogen 12.7 mg/dL (9.0-27.0); Calcium 9.6 mg/dL (8.7-10.3); Carbon Dioxide 25.2 mmol/L (21.6-31.8); Chloride 106 mmol/L (96-109); Glucose 63 mg/dL (70-110); Potassium 3.8 mmol/L (3.5-5.5); Sodium 144 mmol/L (135-145)
== END | disposition home or self-care (01) ==
LOC: LABWHC1 13:58
PROVIDERS: ATTEND Nurse Practitioner Family
DX: N17.9 Acute kidney failure, unspecified (principal)
CPT/HCPCS: 36415; 80048

== ENCOUNTER → 2023-07-24 | Outpatient (CLI) | payer MEDICARE ==
[2023-07-24 08:50] LABS: African American GFR (CKD) 68 (>60 ml/min/1.73 sqM); Blood Urea Nitrogen 26 mg/dL (7-17); Non-African American GFR(CKD) 59 (>60 ml/min/1.73 sqM)
--- NOTE | 2023-07-24 10:18 | CT ---
EXAMINATION TYPE: CT chest wo con DATE OF EXAM: 07/24/2023 COMPARISON: 12/30/2022 HISTORY: pulmonary nodule CT DLP: 360.5 mGycm, Automated exposure control for dose reduction was used. CONTRAST: Oral contrast. TECHNIQUE: Axial images were obtained at 5 mm thick sections. Reconstructed images are reviewed on t he computer in the coronal plane. FINDINGS: Portion of the thyroid visualized is normal. There is a 0.3 cm nodule peripheral left upper lung field. Series 4 image 18. A 0.3 cm densities in t he anterior left apex. Series 4 image 8. A 0.4 cm density is within the periphery of the right midlun g. Series 4 image 22. No enlarged mediastinal or hilar adenopathy is evident. The ascending aorta diameter at the level o f the main pulmonary artery is 2.9 cm. The main pulmonary artery diameter at the bifurcation is 2.[address] sections are obtained through the upper abdomen. There is a moderate size hiatal hernia co ntaining oral contrast. IMPRESSION: 1. Scattered stable lung nodules. Follow-up exam in 6 months is recommended. 2. Hiatal hernia.
--- NOTE | 2023-07-24 10:21 | CT ---
EXAMINATION TYPE: CT abdomen w con DATE OF EXAM: 07/24/2023 COMPARISON: 09/14/2022 INDICATION: kidney cyst DLP: 934.3 mGycm, Automated exposure control for dose reduction was used. CONTRAST: 100 mL of Isovue 300. Study performed with Oral Contrast TECHNIQUE: Axial images were obtained from above the diaphragm to the iliac crests in the axial plane at 5 mm thick sections. Reconstructed images are reviewed on the computer in the coronal plane. FINDINGS: Limited CT sections are obtained the lung bases. Please see CT chest report same date. CT ABDOMEN: Moderate size hiatal hernia containing oral contrast is present. Postsurgical changes karine ng the anterior abdominal wall. Liver: Normal Spleen: Normal Pancreas: Normal Adrenal glands: The adrenal glands are normal. Gallbladder: Normal Kidneys: No masses are evident. No hydronephrosis is present. There is a 1.9 cm cyst in the anterio r medial lower pole right kidney, stable from comparison. Delayed images were obtained through the k idneys, which remain unremarkable. Aorta: Vascular calcification is within the aorta. Inferior vena cava: Normal. IMPRESSION: 1. Stable right renal cyst. 2. Moderate-sized hiatal hernia
== END | disposition home or self-care (01) ==
LOC: RADCTMAIN 07:31
PROVIDERS: ATTEND Family Medicine
DX: N28.1 Cyst of kidney, acquired (principal); R91.8 Other nonspecific abnormal finding of lung field; K44.9 Diaphragmatic hernia without obstruction or gangrene
CPT/HCPCS: 82565; 84520; 71250; 74160; 36415; Q9967

== ENCOUNTER → 2023-08-01 | Outpatient (CLI) | payer MEDICARE ==
[2023-08-01 15:39] LABS: HCT 37.1 % (37.2-46.3); MCH 27.8 pg (27.0-32.0); MCHC 32.3 g/dL (32.0-37.0); MCV 86.1 FL (80.0-97.0); NRBC Per 100 WBC 0 X 10*3/uL (0.00-0.01); Platelet Count 183 X 10*3/uL (140-440); RBC 4.31 X 10*6/uL (4.10-5.20); RDW 14.1 % (11.5-14.5); WBC 4.71 X 10*3/uL (4.50-10.00)
[2023-08-01 15:44] LABS: Blood Urea Nitrogen 17.4 mg/dL (9.0-27.0); Carbon Dioxide 25.2 mmol/L (21.6-31.8); Chloride 106 mmol/L (96-109); Potassium 4.1 mmol/L (3.5-5.5); Sodium 144 mmol/L (135-145)
== END | disposition home or self-care (01) ==
LOC: LABPAT 09:46
PROVIDERS: ATTEND Internal Medicine Interventional Cardiology
DX: Z01.812 Encounter for preprocedural laboratory examination (principal); R06.02 Shortness of breath
CPT/HCPCS: 36415; 80051; 82565; 84520; 85027

== ENCOUNTER 2023-08-09 08:24 | Day surgery (SDC) | payer MEDICARE ==
[~2023-08-09 08:24] MED LIST changes: -ACETAMINOPHEN TAB 500 MG TAB PO PRN; +ALPRAZolam 0.25 MG TAB PO PRN; +ALPRAZolam 0.5 MG TAB PO PRN; -HEPARIN SODIUM,PORCINE/PF 5,000 UNIT/0.5 ML SYRINGE SQ PRN; +NITROGLYCERIN SL TABS 0.4 MG TAB SUBLINGUAL PRN; +SODIUM CHLORIDE 0.9% 1,000 ML in EMPTY BAG 1 BAG IV SCH
[2023-08-09] MEDS ORDERED: ASPIRIN 81 MG ONE (08:35)
[2023-08-09] MEDS ORDERED: SODIUM CHLORIDE 0.9% 1,000 ML IV ONE (08:38)
[2023-08-09 08:49] LABS: Glucose,Whole Blood 117 mg/dL (70-110)
[2023-08-09 09:23] VITALS: RESP 16; TEMP 97.6
[2023-08-09] MEDS ORDERED: VERAPAMIL 2.5 MG/ML 2 ML AMP ONE (11:05)
[2023-08-09] MEDS ORDERED: LIDOCAINE 1% INJ 10MG/ML (20 ML MDV) ONE (11:05)
[2023-08-09] MEDS ORDERED: MIDAZOLAM 2 MG/2 ML VIAL IVP ONE (11:31)
[2023-08-09] MEDS ORDERED: LIDOCAINE 1% INJ 10MG/ML (20 ML MDV) SQ ONE (11:36)
[2023-08-09] MEDS ORDERED: VERAPAMIL SYRINGE (5 MG/10 ML) INTRAARTER ONE (11:37)
[2023-08-09] MEDS ORDERED: HEPARIN SODIUM 1,000 UN/ML (10ML VL) ONE (11:38)
[2023-08-09] MEDS ORDERED: HEPARIN SODIUM 1,000 UN/ML (10ML VL) IV ONE (11:39)
[2023-08-09] MEDS ORDERED: IOPAMIDOL-370 100ML BTL INJ ONE (11:41)
[2023-08-09] MEDS ORDERED: RX INFO: IV CONTRAST WAS GIVEN 1 EACH MISC MISCELLANE PRN (11:57)
[2023-08-09] MEDS ORDERED: SODIUM CHLORIDE 0.9% 1,000 ML IV SCH (12:00)
--- NOTE | 2023-08-09 12:00 | P.PCN ---
Date of Procedure: 08/09/23 Operative Findings: CARDIAC CATHETERIZATION PERFORMING PHYSICIAN: Justice Her MD, RPVI PROCEDURE PERFORMED: 1. Selective right and left coronary angiogram 2. Left heart catheterization 3. Ultrasound-guided access of the right radial artery INDICATION: Shortness of breath and this 78-year-old female patient to underwent myocardial perfusion imaging stress that showed an anterior ischemia COMPLICATION: None APPROACH: Right radial artery LEVEL OF SEDATION: Moderate with a sedation length of 20 minutes PROCEDURE DESCRIPTION: After obtaining an informed consent, the patient was brought to cardiac golf course laborer. Local anesthesia was performed using lidocaine subcutaneously. The right radial artery was cannulated using Seldinger technique, the guidewire passed easily, following that we advanced a 5-Salvadorean sheath dilator assembly, the wire and dilator were removed and sheath was flushed. Following that, 2 mg of verapamil along with 5000 unit heparin were given. Selective right and left coronary angiogram using a 6-Salvadorean JR4 and JL 3 catheters. Following that we did left heart catheterization using 6-Salvadorean pigtail catheter. The procedure was completed there was no complication. SELECTIVE CORONARY ANGIOGRAM: The right coronary artery: Large-caliber vessel and dominant is to be angiographically normal. Distally bifurcates into PDA and PLV branches both appeared to be normal Left main: Is angiographically normal and short left main The left circumflex: Large caliber vessel nondominant vessel. Its angiographically normal. It gives rise into the first and second obtuse marginal branches both appeared to be normal The left anterior descending artery: Large-caliber vessel. The LAD is normal. Gives rises into the first and second diagonal sent both appeared to be normal HEMODYNAMICS: LVEDP was 20 mmHg was no significant gradient across aortic valve CONCLUSION: 1. Normal coronary angiogram 2. Normal left-sided filling pressure POSTPROCEDURE MANAGEMENT: Medical treatment
[2023-08-09 14:33] VITALS: BP 149/72; PULSE 53
== END 2023-08-09 15:43 | disposition home or self-care (01) ==
LOC: CATHCVL 08:24
PROVIDERS: ATTEND Internal Medicine Interventional Cardiology
DX: I25.10 Atherosclerotic heart disease of native coronary artery without angina pectoris (principal); I10 Essential (primary) hypertension; E78.5 Hyperlipidemia, unspecified; E11.9 Type 2 diabetes mellitus without complications; Z86.74 Personal history of sudden cardiac arrest; Z79.02 Long term (current) use of antithrombotics/antiplatelets; Z79.899 Other long term (current) drug therapy; Z88.0 Allergy status to penicillin; Z88.8 Allergy status to other drugs, medicaments and biological substances; Z91.048 Other nonmedicinal substance allergy status
CPT/HCPCS: 93458; 76937; 99152; 99153; C1769 ×2; C1894; J2250; J2001; J1644; Q9967

== ENCOUNTER → 2024-01-29 | Outpatient (CLI) | payer MEDICARE ==
--- NOTE | 2024-01-29 11:44 | MR ---
EXAMINATION TYPE: MR lumbar spine wo con DATE OF EXAM: 01/29/2024 COMPARISON: 10/03/2016 HISTORY: Prior on PACS, chronic low back pain center to right, no sx, no CA TECHNIQUE: T1 and T2 axial and sagittal images of the lumbar spine are submitted. The number system utilized on today's exam will match the numbering system used on the dictation of 10/03/2016. FINDINGS: There is no abnormal signal seen within the visualized spinal cord or paraspinal soft tissu es. Tiny simple appearing left renal cyst. Additional simple appearing cyst right kidney. Atrophic ch anges of the right so as muscle. Mild hypertrophic SI joint arthropathy greater on the right. At T12-L1 there is minimal right paracentral disc bulging but no discrete herniation or canal stenosi s. No foraminal encroachment. Mild degenerative disc disease. At L1-2 there is mild degenerative disc disease. Hypertrophic changes of facet joints. Mild circumfer ential disc bulging. No disc herniation or canal stenosis. No foraminal encroachment. At L2-3 there is left paracentral disc bulging. Very mild left-sided foraminal encroachment and mild effacement of thecal sac. Hypertrophic changes of facets and ligamentum flavum. No disc herniation or canal stenosis. At L3-4 there is rnzd-lv-wipnhvit degenerative disc disease with ligamentum flavum hypertrophy and fa cet arthropathy. Broad-based disc bulging greater paracentrally right with mild effacement of thecal sac. Neural foramina are patent. Borderline central stenosis. At L4-5 there is stable grade 1 anterolisthesis with advanced facet arthropathy and ligamentum flavum hypertrophy. Mild bilateral foraminal encroachment. No canal stenosis or focal herniation. At L5-S1 there is no disc herniation or canal stenosis. No foraminal encroachment. IMPRESSION: 1. Stable multilevel mild degenerative disc disease and facet arthropathy most marked at L4-5 with ad vanced changes resulting in grade 1 anterolisthesis L4-L5. 2. Mild multilevel foraminal encroachment. 3. Multilevel disc bulging as discussed.
== END | disposition home or self-care (01) ==
LOC: RADMRIMAIN 08:55
PROVIDERS: ATTEND Orthopaedic Surgery
DX: M51.36 Other intervertebral disc degeneration, lumbar region (principal); M47.816 Spondylosis without myelopathy or radiculopathy, lumbar region; M43.16 Spondylolisthesis, lumbar region; M54.16 Radiculopathy, lumbar region
CPT/HCPCS: 72148

== ENCOUNTER → 2024-01-30 | Outpatient (CLI) | payer MEDICARE ==
--- NOTE | 2024-01-30 11:47 | CT ---
EXAMINATION TYPE: CT chest wo con CT DLP: 607 mGycm, Automated exposure control for dose reduction was used. DATE OF EXAM: 01/30/2024 9:23 AM COMPARISON: CT chest 07/24/2023, 12/30/2022. CLINICAL INDICATION:Female, 78 years old with history of R91.8 ABNORMAL FINDING OF LUNG FIELD; PHH, a bnormal xray TECHNIQUE: Multiple axial images were obtained through the chest without IV contrast. Lack of IV or o ral contrast limits evaluation of solid and hollow organ viscera. . Coronal and sagittal reformats re viewed. FINDINGS: LUNGS/ PLEURA: Mild biapical pleural-parenchymal scarring. No pleural effusion, pneumothorax, or foca l consolidation. Few stable scattered pulmonary nodules with examples including a right midlung 4 mm pulmonary nodule (series 4, image 26) and a 6 mm right midlung pulmonary nodule (series 4, image 28) . Stable left upper lobe 4 mm pulmonary nodule (series 4, image 19). No new or enlarging pulmonary no dule. AIRWAY: Patent and unremarkable.. HEART: The heart is mildly increased in size.. Moderate calcification of the coronary arteries. No pe ricardial effusion. MEDIASTINUM: No gross evidence of adenopathy. VASCULATURE: No aortic aneurysm. MUSCULOSKELETAL: No acute osseous abnormalities. Mild multilevel degenerative disc disease. SOFT TISSUES/LYMPH NODES: Loop recorder identified within the anterior chest wall tissues anterior to the sternum. LOWER NECK: Macrocalcification identified within the right thyroid lobe. UPPER ABDOMEN: Moderate-sized hiatal hernia with surgical clips at the GE junction from prior hiatal hernia repair. The liver is diffusely hypoattenuating. IMPRESSION: 1. No acute thoracic process. 2. Stable few pulmonary nodules dating back to 12/30/2022. 3. Moderate-sized hiatal hernia with postoperative changes at GE junction redemonstrated. Suspect jonelle or hiatal hernia repair with recurrence. 4. Hepatic steatosis.
== END | disposition home or self-care (01) ==
LOC: RADCTMAIN 09:00
PROVIDERS: ATTEND Orthopaedic Surgery
DX: K76.0 Fatty (change of) liver, not elsewhere classified (principal); K44.9 Diaphragmatic hernia without obstruction or gangrene; R91.8 Other nonspecific abnormal finding of lung field; Z98.890 Other specified postprocedural states
CPT/HCPCS: 71250

== ENCOUNTER 2024-05-27 09:14 | Day surgery (SDC) | payer MEDICARE ==
[~2024-05-27 09:14] MED LIST changes: -ALPRAZolam 0.25 MG TAB PO PRN; -ALPRAZolam 0.5 MG TAB PO PRN; +LIDOCAINE 1% (10MG/ML) FOR IV START INTRADERMA PRN; -NITROGLYCERIN SL TABS 0.4 MG TAB SUBLINGUAL PRN; -SODIUM CHLORIDE 0.9% 1,000 ML in EMPTY BAG 1 BAG IV SCH
[2024-05-27] MEDS: IV FLUID CONTINUATION 1,000 ML IV ONE (10:08)
[2024-05-27 10:24] VITALS: RESP 16; TEMP 97.1
[2024-05-27] MEDS: LACTATED RINGERS 1,000 ML IV SCH (10:24)
[2024-05-27 10:27] LABS: Glucose,Whole Blood 125 mg/dL (70-110)
[2024-05-27] MEDS ORDERED: PROPOFOL 10 MG/ML 20 ML VIAL IV ONE (11:13)
--- NOTE | 2024-05-27 11:16 | P.GSHP ---
History of Present Illness H&P Date: 05/27/24 Chief Complaint: Screening colonoscopy This is a 79-year-old female presents today for screening colonoscopy. Patient denies any significant GI complaints. Past Medical History Past Medical History: Cancer, Chest Pain / Angina, Diabetes Mellitus, Eye Disorder, Fibromyalgia, GERD/Reflux, Hearing Disorder / Deafness, Hyperlipidemia, Hypertension, Liver Disease, Musculoskeletal Disorder, Osteoarthritis (OA), Pneumonia, Supraventricular Tachycardia (SVT) Additional Past Medical History / Comment(s): Intestinal adhesions, RESTLESS LEG, Hiatal Hernia, MENIERES, DIVERTICULITIS, GLAUCOMA - right eye, NEUROPATHY bilateral legs, hx anemia, irregular heartbeat (not afib/flutter), DDD, difficulty hearing certain tones, right ear [place], gout, hx skin cancer, fatty liver, diet controlled diabetes. History of Any Multi-Drug Resistant Organisms: None Reported Past Surgical History: Appendectomy, Bladder Surgery, Bowel Resection, Breast Surgery, Cholecystectomy, Ear Surgery, Heart Catheterization, Hernia Repair, Hysterectomy, Joint Replacement, Orthopedic Surgery, Tonsillectomy, Tubal Ligation Additional Past Surgical History / Comment(s): Direct Microlaryngoscopy and removal of left vocal cord mass, benign nicole exsional breast biopsy, diagnostic laparoscopy with lysis of adhesions, bilateral knee replacements, bilateral cataracts removed with lens implants, TUBE IN RIGHT EAR FOR MENIERES, LEFT THUMB SURGERY, hiatal hernia repair, abdominal ventral hernia repair, EGD with dilation X3, spur removed from left and right heel, total right hip replacement. Past Anesthesia/Blood Transfusion Reactions: Previous Problems w/ Anesthesia, Motion Sickness, Postoperative Nausea & Vomiting (PONV) Additional Past Anesthesia/Blood Transfusion Reaction / Comment(s): STATES "DIFFICULT INTUBATION-JAW LOCKED UP AFTER A PREVIOUS INTUBATION". "Have to use child size tube so jaw doesn't lock up". 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 Difficult IV start. Smoking Status: Former smoker - Past Family History Brother(s) Family Medical History: Cancer Mother Family Medical History: Cancer, Deep Vein Thrombosis (DVT), Pulmonary Embolus Additional Family Medical History / Comment(s): STOMACH CANCER. Father Family Medical History: No Reported History Additional Family Medical History / Comment(s): COMMITTED SUICIDE. Medications and Allergies Home Medications Medication Instructions Recorded Confirmed Type Fenofibrate [Lofibra] 160 mg PO DAILY 11/17/18 05/27/24 History Omeprazole 40 mg PO DAILY 10/14/20 05/27/24 History HYDROcodone/APAP 7.5-325MG [[place]andridge 1.5 tab PO HS 05/02/21 05/27/24 History 7.5-325] Ezetimibe [Zetia] 10 mg PO DAILY 03/16/22 05/27/24 History rOPINIRole HCL [Requip] 1 mg PO HS 03/16/22 05/27/24 History Desvenlafaxine Succinate [Pristiq] 100 mg PO DAILY 04/07/22 05/27/24 History Gabapentin [Neurontin] 300 mg PO BID 04/07/22 05/27/24 History Vit C/E/Zn/Coppr/Lutein/Zeaxan 1 tab PO BID 04/07/22 05/24/24 History [Preservision Areds 2 Chew Tab] Losartan Potassium [Cozaar] 100 mg PO DAILY 04/28/22 05/27/24 History Furosemide [Lasix] 20 mg PO DAILY 09/14/22 05/27/24 History Metoprolol Succinate (ER) [Toprol 100 mg PO DAILY 09/14/22 05/27/24 History XL] Clopidogrel [Plavix] 75 mg PO DAILY #30 tab 01/01/23 05/24/24 Rx tiZANidine HCL [Zanaflex] 4 mg PO DAILY 03/24/23 05/27/24 History Meclizine [Antivert] 25 mg PO DIRECTED PRN 04/14/23 05/27/24 History amLODIPine [Norvasc] 5 mg PO DAILY 04/14/23 05/27/24 History HYDROcodone/APAP 7.5-325MG [[place]andridge 1 tab PO Q6HR PRN 3 Days #12 tab 04/18/23 05/27/24 Rx 7.5-325] Allergies Allergy/AdvReac Type Severity Reaction Status Date / Time adhesive Allergy Rash/Hives Verified 05/24/24 09:57 Penicillins Allergy Rash/Hives Verified 05/24/24 09:57 Jjtfxpc-MVU-AqF Reductase Allergy Rash/Hives Verified 05/24/24 09:57 Inhibitor [Fnzaxkl-Swd-Esn Reductase Inhibitor] aspirin AdvReac STOMACH Verified 05/24/24 09:57 UPSET/HEARTBURN Surgical - Exam Vital Signs Temp Pulse Resp BP Pulse Ox 97.1 F L 67 16 176/82 95 05/27/24 10:23 05/27/24 10:23 05/27/24 10:23 05/27/24 10:23 05/27/24 10:23 - General well developed, well nourished, no distress - Eyes PERRL - ENT normal pinna - Neck no masses - Respiratory normal expansion - Cardiovascular Rhythm: regular - Abdomen Abdomen: soft, non tender Results - Labs Abnormal Lab Results - Last 24 Hours (Table) 05/27/24 Range/Units 10:20 POC Glucose (mg/dL) 125 H (70-110) mg/dL Assessment and Plan Assessment: Will perform screening colonoscopy.
--- NOTE | 2024-05-27 11:36 | P.OP ---
Date of Procedure: 05/27/24 Preoperative Diagnosis: Screening colonoscopy Postoperative Diagnosis: External hemorrhoids Diverticulosis Right colon polyp Procedure(s) Performed: Colonoscopy Anesthesia: MAC Surgeon: Bonifacio Squires Pathology: other (Right colon polyp) Condition: stable Disposition: PACU Description of Procedure: The patient was placed on the endoscopy table in the lateral position. She received IV sedation. Digital rectal exam was performed. This revealed external hemorrhoids. Flexible colonoscope was then placed patient anus and passed throughout the entire colon. The ileocecal valve was visualized. In the right colon there were several polyps. These removed with the snare. The remaining right colon appeared normal. The transverse colon appeared normal. In the descending sigmoid colon there is mild diverticular changes. The scope was brought back to the rectum this appeared normal. Scope withdrawn for the patient.
[2024-05-27 11:56] VITALS: BP 155/82; PULSE 61
== END 2024-05-27 12:13 | disposition home or self-care (01) ==
LOC: ORWHC2ENDO 09:14
PROVIDERS: ATTEND Surgery
CPT/HCPCS: 45385; 88305

== ENCOUNTER → 2024-06-07 | Outpatient (CLI) | payer MEDICARE ==
--- NOTE | 2024-06-07 08:50 | USB ---
Reason for Exam: Clinical finding. Patient History: Menarche at age 16. First Full-Term at age 20. Left ovary removed at age 31. Right ovary removed at age 31. Hysterectomy at age 31. Postmenopausal. 07/2018, Benign Excisional Biopsy on the left side. 06/2018, Benign Excisional Biopsy on the right side. 04/01/2021, Benign Core Biopsy on the right side. Maternal grandmother had breast cancer. Risk Values: Mary Carmen 5 year model risk: 1.7%. NCI Lifetime model risk: 3.3%. Technique: Method: Targeted. Prior Study Comparison: 04/05/2018 Bilateral Screening Mammogram, [facility]. 02/04/2019 Bilateral Diagnostic Mammogram, [facility]. 02/25/2021 Bilateral Diagnostic Mammogram, [facility]. Findings: The upper inner quadrant of the right breast, the axilla of the right breast and the retroareolar of the right breast were scanned. Technique utilized:US breast limited RT Image; Ultrasound imaging of: Area of concern, retroareolar region and axilla. Area of concern in the right breast at 1:00 4 centers the nipple is a anechoic cysts noted by hyperechoic tissue which may be minimally larger from 2019 measuring up to 11 mm previously 8 mm. There is also new vascularity on today's exam. Overall Assessment: Probably benign, BI-RAD 3 Management: Diagnostic Breast Ultrasound of the right breast in 6 months. A clinical breast exam by your physician is recommended on an annual basis and results should be correlated with mammographic findings. This exam should not preclude additional follow-up of suspicious palpable abnormalities. Results were given to the patient verbally at the time of exam. [facility], , 06/07/2024 8:43 AM. Electronically signed and approved by: Rohan Enrique DO
== END ==
LOC: RADMAMWWP 07:48
PROVIDERS: ATTEND Family Medicine
CPT/HCPCS: 77062; 77066

== ENCOUNTER → 2024-06-20 | Outpatient (CLI) | payer MEDICARE ==
--- NOTE | 2024-06-20 12:18 | XR ---
EXAMINATION TYPE: XR wrist complete RT DATE OF EXAM: 06/20/2024 COMPARISON: NONE HISTORY: 79-year-old female M2 5.531, soreness, numbness, swelling for 6 months TECHNIQUE: 4 views FINDINGS: Generalized soft tissue swelling is present. There is cystic change at the ulnar proximal a spect of the lunate bone. TFC calcifications noted. Severe degenerative change first CMC joint. Moder ate to severe at the triscaphe joint. Additional moderate degenerative change first MCP joint. No acu te fracture, subluxation, dislocation seen. IMPRESSION: 1. Generalized soft tissue swelling. Given TFC calcifications, CPPD is a differential consideration. 2. Some cystic change at the ulnar proximal aspect of the lunate bone. Correlate for any chronic symp toms of ulnar impaction syndrome. 3. Severe OA at the basal joint of the thumb, progressed from 2016. 4. No acute osseous abnormality seen. [facility], , 06/20/2024 12:16 PM
== END | disposition home or self-care (01) ==
LOC: RADXRMAIN 11:27
PROVIDERS: ATTEND Family Medicine
DX: M18.11 Unilateral primary osteoarthritis of first carpometacarpal joint, right hand (principal); M79.89 Other specified soft tissue disorders

== ENCOUNTER → 2024-06-20 | Outpatient (CLI) | payer MEDICARE ==
--- NOTE | 2024-06-20 11:10 | P.PN ---
Subjective Progress Note Date: 06/20/24 Principal diagnosis: Right breast palpable lump Chief Complaint: abnormal mammogram right breast The patient is a 79-year-old white female who presented for breast evaluation on 02-25-21. She was seen in consultation for Dr. Hernandez regarding a radiographic abnormality in her right breast. She did not feel any lumps masses or nodules of concern in either breast. In the right breast there was an area of concern for which stereotactic core biopsy was recommended. This was a nodular density which was not seen on ultrasound. No lesions of concern were noticed in the left breast. She has had bilateral breast biopsies in the past approximately 2019 which were negative for cancer. Stero biopsy was done on 04-01-21 which was felt to be benign concordant. She had a repeat bilateral mammogram and ultrasound of the right breast on 06-07-24 which showed a persistent lesion in the right breast for which repeat right breast ultrasound in 6 months was recommended. The patient at this time complains of a lesion in her right breast which is new at the area of the prior scar. She is not complaining of anything in the left breast. It appears the area the patient is feeling corresponds with the ultrasound abnormality in the right breast. nicotine: Negative Caffeine: tea 4 glasses/day chocolate: occasional Family history: 1. Maternal grandmother: Breast cancer 2. brother: Lung cancer 3. Mother: Questionable colon cancer 4. Paternal grandmother: Colon cancer Past surgical history: 1. Bladder suspension/hysterectomy 2. Bilateral knee replacement 3. Left breast surgery, right breast surgery 4. Partial colon resection diverticulitis 5. Cholecystectomy 6. Appendectomy 7. Foot surgery 8. Hernia repair times 2 9. hiatal hernia 10. bowel resection 2021 11. three additional incisional hernia repairs Medical history: 1. Diabetes 2. Hypertension 3. High cholesterol 4. Depression 5. Back pain 6. obesity Social history: Smoke: Negative Alcohol: Negative Drugs: Negative - Constitutional Constitutional: Denies chills, Denies fever - EENT Comment: glaucoma/ bilateral laser surgery Eyes: bilateral blurred vision, denies pain Ears: right: decreased hearing, bilateral: tinnitus Ears, nose, mouth and throat: Denies headache, Denies sore throat - Breasts Breasts: bilateral: as per HPI - Cardiovascular Comment: flutter follows with cardiology - Respiratory Comment: SOB with walking - Gastrointestinal Gastrointestinal: Denies abdominal pain, Denies diarrhea, Denies nausea, Denies vomiting - Genitourinary (Female) Genitourinary: Denies dysuria, Denies hematuria - Menstruation Menstruation: Reports post hysterectomy - Musculoskeletal Musculoskeletal: Reports myalgias - Integumentary Integumentary: Denies pruritus, Denies rash - Neurological Neurological: Reports weakness - Psychiatric Psychiatric: Denies anxiety, Denies depression - Endocrine Endocrine: Reports fatigue, Reports weight change - Hematologic/Lymphatic Comment: none - Allergic/Immunologic Allergic/Immunologic: Reports as per HPI Past Medical History Past Medical History: Cancer, Chest Pain / Angina, Diabetes Mellitus, Eye Disor juliana, Fibromyalgia, GERD/Reflux, Hearing Disorder / Deafness, Hyperlipidemia, Hypertension, Osteoarthritis (OA), Pneumonia, Supraventricular Tachycardia (SVT) Additional Past Medical History / Comment(s): Intestinal adhesions, RESTLESS LEG, Hiatal HERNIA, MENIERES, DIVERTICULITIS, GLAUCOMA R eye, (NOT CURRENTLY ON ANY MEDICATIONS FOR) NEUROPATHY bilateral legs, hx anemia. Irregular heartbeat. DDD, Difficulty hearing certain tones. gout, skin cancer, admission Aug 2020 for intestinal abscess and UTI per pt. History of Any Multi-Drug Resistant Organisms: None Reported Past Surgical History: Appendectomy, Bladder Surgery, Bowel Resection, Cholecystectomy, Ear Surgery, Heart Catheterization, Hernia Repair, Hysterectomy, Joint Replacement, Orthopedic Surgery, Tonsillectomy, Tubal Ligation Additional Past Surgical History / Comment(s): Direct Microlaryngoscopy and removal left vocal cord mass.RIGHT BREAST BX, Diagnostic laparoscopy with lysis of adhesions. LUBNA KNEE REPLACEMENT, EYE surgery for cataracts bilaterally with lens implants, TUBE IN RIGHT EAR FOR MENIERES, LEFT THUMB SURGERY, hiatal hernia repair, abdominal ventral hernia repair, EGD-esophagus stretched x3, spur removal left heel Past Anesthesia/Blood Transfusion Reactions: Previous Problems w/ Anesthesia, Motion Sickness, Postoperative Nausea & Vomiting (PONV) Additional Past Anesthesia/Blood Transfusion Reaction / Comment(s): MENIERE'S, STATES "DIFF INTUBATION-JAW LOCKED UP AFTER A PREVIOUS INTUBATION". "scraped vocal cord-evaluated by Dr Smart", difficult IV start Past Psychological History: No Psychological Hx Reported Smoking Status: Former smoker Past Alcohol Use History: Rare Additional Past Alcohol Use History / Comment(s): Smoked x 5 years off and on less then a ppd, quit 30 years ago. Past Drug Use History: None Reported - Past Family History Brother(s) Family Medical History: Cancer Mother Family Medical History: Cancer, CVA/TIA, Deep Vein Thrombosis (DVT) Additional Family Medical History / Comment(s): STOMACH CANCER Father Family Medical History: No Reported History Additional Family Medical History / Comment(s): COMMITTED SUICIDE Medications and Allergies Home Medications Medication Instructions Recorded Confirmed Type Evolocumab [Repatha Syringe] 140 mg SQ Q14D 11/17/18 02/25/21 History Fenofibrate [Lofibra] 160 mg PO QAM 11/17/18 02/25/21 History Gabapentin [Neurontin] 300 mg PO HS 12/01/19 02/25/21 History Metoprolol Succinate [Toprol XL] 25 mg PO QAM 09/05/20 02/25/21 History metFORMIN HCL [Glucophage] 1,000 mg PO BID 09/05/20 02/25/21 History traZODone HCL [Desyrel] 50 mg PO HS 09/05/20 02/25/21 History Losartan/Hydrochlorothiazide 1 tab PO QAM 09/18/20 02/25/21 History [Hyzaar 100-25 Tablet] Furosemide [Lasix] 20 mg PO QAM 10/14/20 02/25/21 History Omeprazole 40 mg PO QAM 10/14/20 02/25/21 History Acetaminophen Tab [Tylenol] 650 mg PO Q6H #30 tab 10/19/20 02/25/21 Rx HYDROcodone/APAP 5-325MG [Rothsay 1 tab PO Q6HR PRN 3 Days #10 tab 11/10/20 02/25/21 Rx 5-325] Allergies Allergy/AdvReac Type Severity Reaction Status Date / Time Penicillins Allergy Rash/Hives Verified 02/25/21 12:20 [id number]-[id number]-Xld Reductase Allergy Rash/Hives Verified 02/25/21 12:20 Inhibitor adhesive AdvReac Rash/Hives Verified 02/25/21 12:20 aspirin AdvReac STOMACH Verified 02/25/21 12:20 UPSET/HEARTBURN Objective - Vital Signs Vital signs: Intake & Output 06/19/24 06/20/24 06/20/24 18:59 06:59 18:59 Weight 87.09 kg - Constitutional General appearance: Present: cooperative - EENT Eyes: Present: EOMI ENT: Present: hearing grossly normal - Neck Neck: Present: normal ROM - Respiratory Respiratory: bilateral: CTA - Cardiovascular Rhythm: regular Heart sounds: normal: S1, S2 - Integumentary Integumentary: Present: normal turgor - Musculoskeletal Musculoskeletal: Present: gait normal - Psychiatric Psychiatric: Present: A&O x's 3, appropriate affect, intact judgment & insight - Additional findings Additional findings: Breast exam: BRA: XL sports bra inspection: Bilateral grade 3 ptosis Palpation: Right breast: Multi-positional exam fibrocystic changes, in the medial aspect of the incision there is approximately a 1 x 1 cm area of increased nodularity. Right axilla: No adenopathy of concern Left breast: Multi-positional exam fibrocystic changes no dominant masses or nodules of concern Left axilla: No adenopathy of concern Assessment and Plan Assessment: Impression: 1. abnormality on ultrasound right breast, right breast palpable lump medial aspect of scar 2. Fibrocystic breast changes 3. Diabetes 4. High cholesterol 5. Hypertension 6. Heart murmur atrial flutter 7. fatigue Plan: Ultrasound-guided biopsy of palpable mass in the right breast Follow-up after ultrasound-guided biopsy stop plavix as per DR. Hernandez CC: Dr. Hernandez
[2024-06-20 11:25] VITALS: BP 165/95; PULSE 76; RESP 16; TEMP 97.5
== END ==
LOC: WWCWWP 10:43
PROVIDERS: ATTEND Surgery
DX: N60.11 Diffuse cystic mastopathy of right breast (principal); N60.12 Diffuse cystic mastopathy of left breast; E11.36 Type 2 diabetes mellitus with diabetic cataract; E11.40 Type 2 diabetes mellitus with diabetic neuropathy, unspecified; E78.00 Pure hypercholesterolemia, unspecified; I10 Essential (primary) hypertension; I48.92 Unspecified atrial flutter; R01.1 Cardiac murmur, unspecified; R53.83 Other fatigue; Z87.891 Personal history of nicotine dependence; Z91.048 Other nonmedicinal substance allergy status; Z88.0 Allergy status to penicillin; Z88.6 Allergy status to analgesic agent; Z88.8 Allergy status to other drugs, medicaments and biological substances; Z79.899 Other long term (current) drug therapy; Z79.02 Long term (current) use of antithrombotics/antiplatelets

== ENCOUNTER → 2024-07-01 | Day surgery (SDC) | payer MEDICARE ==
--- NOTE | 2024-07-10 09:44 | MM ---
Reason for Exam: Post Procedure Mammogram. Last screening mammogram was performed less than 1 month ago. Patient History: Menarche at age 16. First Full-Term at age 20. Left ovary removed at age 31. Right ovary removed at age 31. Hysterectomy at age 31. Postmenopausal. 07/2018, Benign Excisional Biopsy on the left side. 06/2018, Benign Excisional Biopsy on the right side. 04/01/2021, Benign Core Biopsy on the right side. Maternal grandmother had breast cancer, age 60. Risk Values: Mary Carmen 5 year model risk: 1.7%. NCI Lifetime model risk: 3.3%. Prior Study Comparison: 02/04/2019 Bilateral Diagnostic Mammogram, [facility]. 02/25/2021 Bilateral Diagnostic Mammogram, [facility]. 06/07/2024 Bilateral MG 3D diag mammo w/cad LUBNA, [facility]. Tissue Density: Right: There are scattered areas of fibroglandular density. Pathology Description: Location: 1 o'clock. Marker Left Behind. Needle Type: Mammotome Cores: 4 Skin Nicks: 1 Gauge: 13 The procedure of ultrasound guided core biopsy was explained to the patient. Benefits, alternatives, and risks were discussed. An informed consent was then obtained. A timeout was performed. The patient was placed in supine positioning for imaging and for the procedure. The overlying skin was prepped and draped in usual sterile fashion. Lidocaine was used as anesthetic into the skin and subcutaneous tissue up to area of concern in the right breast. A small skin randy was made with surgical scalpel. Under ultrasound guidance, a 12-gauge vacuum assisted biopsy gun device was used to obtain 4 core samples. A biopsy clip was left in lesion. Hydromark coil core marker was placed. The patient tolerated the procedure well without any immediate complication. The patient was kept in the radiology department for short stay after the procedure and then discharged home in stable condition. Postprocedure mammogram: The patient was transferred to mammography for physician ordered post procedure mammogram for clip placement verification. Post procedure mammogram demonstrates the clip in appropriate placement. Impression: Successful ultrasound guided core biopsy of area of concern in the right breast, full pathology results to follow. Recommendations: 1. Recommendations are pending pathology results. [facility], , 07/01/2024 3:31 PM. Pathology Results: Result: Benign, Fat necrosis. Pathology and radiology were reviewed. Findings are concordant. RIGHT BREAST, ONE O'CLOCK, BIOPSY: Fibrous scar with acute and chronic mastitis and fat necrosis (see note). Notes The patient has a prior diagnosis of right breast nodular fat necrosis with fibrosis on biopsy case [id number]. Recent ultrasound studies show anechoic cysts with hyperechoic tissue with minimal enlargement from a prior study. Examination reveals a proliferation of bland spindled cells with histiocytosis and admixed inflammation with fibrosis and focal myxoid reactive change. In order to further characterize the process, immunostains are performed with appropriate controls on block A1. Pancytokeratin (AE1/AE3) and CK903 ([id number]) stains are negative. Calponin shows focal staining, and SMA shows positive staining. CD68 stains positive within macrophages. The findings seen are compatible with scar with fat necrosis. Overall Assessment: Benign Assessment: MG diagnostic mammo RT wo CAD - Right: Benign, BI-RAD 2. Management: Diagnostic Breast Ultrasound of the right breast in 6 months. Electronically signed and approved by: Corby Collins D.O. Radiologis
== END ==
LOC: RADUSWWP 12:22
PROVIDERS: ATTEND Surgery
DX: N61.0 Mastitis without abscess (principal)
CPT/HCPCS: 88305; 88342; 88341; 77065; 19083; A4648

== ENCOUNTER → 2024-11-07 | Outpatient (CLI) | payer MEDICARE ==
[2024-11-07 15:47] LABS: Basophils # (A) 0.06 X 10*3/uL (0.00-0.10); Basophils % (A) 1.2 %; Eosinophils # (A) 0.17 X 10*3/uL (0.04-0.35); Eosinophils % (A) 3.4 %; HGB 13.3 g/dL (12.0-15.0); Lymphocytes # (A) 1.96 X 10*3/uL (0.90-5.00); Lymphocytes % (A) 38.7 %; MCHC 32.4 g/dL (32.0-37.0); MCV 86.3 FL (80.0-97.0); Mean Platelet Volume 11.2 FL (9.5-12.2); Microcytosis (M) 2+ (None Seen); Monocytes # (A) 0.29 X 10*3/uL (0.20-1.00); Monocytes % (A) 5.7 %; NRBC Per 100 WBC 0 X 10*3/uL (0.00-0.01); Neutrophils # (A) 2.56 X 10*3/uL (1.80-7.70); Neutrophils % (A) 50.6 %; Platelet Count 242 X 10*3/uL (140-440); RBC 4.75 X 10*6/uL (4.10-5.20); RDW 14.3 % (11.5-14.5); WBC 5.06 X 10*3/uL (4.50-10.00)
[2024-11-07 16:31] LABS: ALT 34 U/L (8-44); AST 48 U/L (13-35); Albumin 4.3 g/dL (3.8-4.9); Albumin/Globulin Ratio 1.39 Ratio (1.60-3.17); Alkaline Phosphatase 82 U/L (41-126); Calcium 9.6 mg/dL (8.7-10.3); Carbon Dioxide 22.5 mmol/L (21.6-31.8); Chloride 104 mmol/L (96-109); Globulin 3.1 g/dL (1.6-3.3); Glucose 140 mg/dL (70-110); Potassium 4.7 mmol/L (3.5-5.5); Sodium 141 mmol/L (135-145); Total Bilirubin 0.2 mg/dL (0.3-1.2); Total Protein 7.4 g/dL (6.2-8.2)
== END | disposition home or self-care (01) ==
LOC: LABWHC1 09:32
PROVIDERS: ATTEND Family Medicine
DX: M62.81 Muscle weakness (generalized) (principal); R53.81 Other malaise
CPT/HCPCS: 36415; 80053; 82306; 82607; 84443; 85025

== ENCOUNTER 2024-12-14 19:40 | Inpatient (IN) | payer MEDICARE ==
--- NOTE | 2024-12-14 20:03 | ED ---
GI Bleed HPI - General Chief complaint: GI Bleed Stated complaint: abd pain, rectal bleeding Time Seen by Provider: 12/14/24 20:00 Source: patient, RN notes reviewed, old records reviewed Mode of arrival: ambulatory Limitations: no limitations - History of Present Illness Initial comments: This is a 79 female to the ER for evaluation patient comes in today for evaluation of blood in the toilet blood in the stool. Patient has had a couple bloody bowel movements today. Patient does have history of abdominal surgery but noted blood in the stool today and again here on arrival to the ER. No feelings of lightheadedness dizziness or weakness patient does not take blood thinners is on Plavix complaint: blood on toilet paper, blood streaked stool -: hour(s) Consistency: intermittent Improves with: none Context: history of GI bleed (History of abdominal surgery) Associated Symptoms: nausea, vomiting, loss of appetite Treatments Prior to Arrival: none - Related Data Home Medications Medication Instructions Recorded Confirmed Fenofibrate [Lofibra] 160 mg PO DAILY 11/17/18 12/15/24 Omeprazole 40 mg PO DAILY 10/14/20 12/15/24 rOPINIRole HCL [Requip] 1 mg PO HS 03/16/22 12/15/24 Desvenlafaxine Succinate [Pristiq] 100 mg PO DAILY 04/07/22 12/15/24 Furosemide [Lasix] 20 mg PO DAILY 09/14/22 12/15/24 Metoprolol Succinate (ER) [Toprol 100 mg PO DAILY 09/14/22 12/15/24 XL] Evolocumab [Repatha Sureclick] 140 mg SQ Q14D 12/15/24 12/15/24 Gabapentin 1,200 mg PO HS 12/15/24 12/15/24 Losartan [Cozaar] 50 mg PO DAILY 12/15/24 12/15/24 Tolterodine ER [Detrol LA] 4 mg PO DAILY 12/15/24 12/15/24 Previous Rx's Medication Instructions Recorded Clopidogrel [Plavix] 75 mg PO DAILY #30 tab 01/01/23 HYDROcodone/APAP 7.5-325MG [[place] 1 tab PO Q6HR PRN 3 Days #12 tab 04/18/23 7.5-325] Ondansetron [Zofran] 4 mg PO Q8HR PRN 3 Days #12 tab 12/20/24 Pantoprazole [Protonix] 40 mg PO DAILY #30 tab 12/20/24 cefuroxime axetiL [Ceftin] 500 mg PO BID 10 Days #20 tab 12/20/24 metroNIDAZOLE [Flagyl] 500 mg PO BID 10 Days #20 tab 12/20/24 Allergies Allergy/AdvReac Type Severity Reaction Status Date / Time adhesive Allergy Rash/Hives Verified 12/15/24 12:10 Penicillins Allergy Rash/Hives Verified 12/15/24 12:10 Tvtmwgq-FFR-EfC Reductase Allergy Rash/Hives Verified 12/15/24 12:10 Inhibitor [Zjpcjkk-Xvd-Ktr Reductase Inhibitor] aspirin AdvReac STOMACH Verified 12/15/24 12:10 UPSET/HEARTBURN Review of Systems ROS Statement: Those systems with pertinent positive or pertinent negative responses have been documented in the HPI. ROS Other: All systems not noted in ROS Statement are negative. Past Medical History Past Medical History: Cancer, Chest Pain / Angina, Diabetes Mellitus, Eye Disorder, Fibromyalgia, GERD/Reflux, Hearing Disorder / Deafness, Hyperlipidemia, Hypertension, Liver Disease, Musculoskeletal Disorder, Osteoarthritis (OA), Pneumonia, Supraventricular Tachycardia (SVT) Additional Past Medical History / Comment(s): Intestinal adhesions, RESTLESS LEG, Hiatal Hernia, MENIERES, DIVERTICULITIS, GLAUCOMA - right eye, NEUROPATHY bilateral legs, hx anemia, irregular heartbeat (not afib/flutter), DDD, difficulty hearing certain tones, right ear [place], gout, hx skin cancer, fatty liver, diet controlled diabetes. History of Any Multi-Drug Resistant Organisms: None Reported Past Surgical History: Appendectomy, Bladder Surgery, Bowel Resection, Breast Surgery, Cholecystectomy, Ear Surgery, Heart Catheterization, Hernia Repair, Hysterectomy, Joint Replacement, Orthopedic Surgery, Tonsillectomy, Tubal Ligat ion Additional Past Surgical History / Comment(s): Direct Microlaryngoscopy and removal of left vocal cord mass, benign nicole exsional breast biopsy, diagnostic laparoscopy with lysis of adhesions, bilateral knee replacements, bilateral cataracts removed with lens implants, TUBE IN RIGHT EAR FOR MENIERES, LEFT THUMB SURGERY, hiatal hernia repair, abdominal ventral hernia repair, EGD with dilation X3, spur removed from left and right heel, total right hip replacement. Past Anesthesia/Blood Transfusion Reactions: Previous Problems w/ Anesthesia, Mo tion Sickness, Postoperative Nausea & Vomiting (PONV) Additional Past Anesthesia/Blood Transfusion Reaction / Comment(s): STATES "DIFFICULT INTUBATION-JAW LOCKED UP AFTER A PREVIOUS INTUBATION". "Have to use child size tube so jaw doesn't lock up". 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 Difficult IV start. Past Psychological History: Anxiety, Depression Smoking Status: Former smoker Past Alcohol Use History: None Reported Past Drug Use History: None Reported - Past Family History Brother(s) Family Medical History: Cancer Mother Family Medical History: Cancer, Deep Vein Thrombosis (DVT), Pulmonary Embolus Additional Family Medical History / Comment(s): STOMACH CANCER. Father Family Medical History: No Reported History Additional Family Medical History / Comment(s): COMMITTED SUICIDE. General Exam Limitations: no limitations General appearance: alert, in no apparent distress Head exam: Present: atraumatic, normocephalic, normal inspection Eye exam: Present: normal appearance, PERRL, EOMI. Absent: scleral icterus, conjunctival injection, periorbital swelling ENT exam: Present: normal exam, mucous membranes moist Neck exam: Present: normal inspection. Absent: tenderness, meningismus, lymphadenopathy Respiratory exam: Present: normal lung sounds bilaterally. Absent: respiratory distress, wheezes, rales, rhonchi, stridor Cardiovascular Exam: Present: regular rate, normal rhythm, normal heart sounds. Absent: systolic murmur, diastolic murmur, rubs, gallop, clicks GI/Abdominal exam: Present: soft, normal bowel sounds. Absent: distended, tenderness, guarding, rebound, rigid Extremities exam: Present: normal inspection, full ROM, normal capillary refill. Absent: tenderness, pedal edema, joint swelling, calf tenderness Back exam: Present: normal inspection Neurological exam: Present: alert, oriented X3, CN II-XII intact Psychiatric exam: Present: normal affect, normal mood Skin exam: Present: warm, dry, intact, normal color. Absent: rash Course Vital Signs 12/14/24 12/14/24 12/15/24 19:49 21:25 01:25 Temperature 98.6 F Pulse Rate 84 80 84 Respiratory 18 18 19 Rate Blood Pressure 160/89 142/96 115/59 O2 Sat by Pulse 96 96 97 Oximetry 12/15/24 12/15/24 12/15/24 05:15 05:48 07:39 Temperature Pulse Rate 78 68 76 Respiratory 16 16 12 Rate Blood Pressure 110/58 105/69 110/53 O2 Sat by Pulse 97 95 100 Oximetry 12/15/24 12/15/24 12/15/24 11:00 12:15 12:35 Temperature 98.2 F 98.5 F Pulse Rate 76 80 87 Respiratory 12 16 16 Rate Blood Pressure 110/65 112/66 121/71 O2 Sat by Pulse 97 Oximetry 12/15/24 12/15/24 14:01 17:44 Temperature 98.6 F Pulse Rate 79 86 Respiratory 18 18 Rate Blood Pressure 124/71 140/68 O2 Sat by Pulse 98 Oximetry - Reevaluation(s) Reevaluation #1: 12/14/24 22:30 Medical records reviewed Reevaluation #2: 12/14/24 22:30 Patient does have 1 bloody bowel movement here on arrival to the ER no recurrent bloody bowel movements 12/14/24 22:30 On further evaluation patient is not on Coumadin but does take Plavix Reevaluation #3: 12/14/24 22:30 Patient informed of results questions answered Reevaluation #4: Was pt. sent in by a medical professional or institution (, PA, WIRE STOCKKEEPER, urgent care, hospital, or half-way...) When possible be specific @ -no Did you speak to anyone other than the patient for history (EMS, parent, family, police, friend...)? What history was obtained from this source @ -no Did you review nursing and triage notes (agree or disagree)? Why? @ -agree Are old charts reviewed (outside hosp., previous admission, EMS record, old EKG, old radiological studies, urgent care reports/EKG's, half-way records)? Report findings @ -yes Differential Diagnosis (chest pain, altered mental status, abdominal pain women, abdominal pain men, vaginal bleeding, weakness, fever, dyspnea, syncope, headache, dizziness, GI bleed, back pain, seizure, CVA, palpatations, mental health, musculoskeletal)? @ -prior EKG interpreted by me (3pts min.). @ -yes X-rays interpreted by me (1pt min.). @ -no CT interpreted by me (1pt min.). @ -yes negative for acute disease U/S interpreted by me (1pt. min.). @ -no What testing was considered but not performed or refused? (CT, X-rays, U/S, labs)? Why? @ -none What meds were considered but not given or refused? Why? @ -none Did you discuss the management of the patient with other professionals (professionals i.e. , PA, WIRE STOCKKEEPER, lab, RT, psych nurse, social work case manager, database operator, teacher, equal employment opportunity officer, case coordinator)? Give summary @ -no Was smoking cessation discussed for >3mins.? @ -no Was critical care preformed (if so, how long)? @ -no Were there social determinants of health that impacted care today? How? (Homelessness, low income, unemployed, alcoholism, drug addiction, transportation, low edu. Level, literacy, decrease access to med. care, retirement, rehab)? @ -none Was there de-escalation of care discussed even if they declined (Discuss DNR or withdrawal of care, Hospice)? DNR status @ -no What co-morbidities impacted this encounter? (DM, HTN, Smoking, COPD, CAD, Cancer, CVA, ARF, Chemo, Hep., AIDS, mental health diagnosis, sleep apnea, morbid obesity)? @ -none Was patient admitted / discharged? Hospital course, mention meds given and route, prescriptions, significant lab abnormalities, going to OR and other pertinent info. @ - 79 female coming to the ER for evaluation of GI bleed bright red blood per rectum, no lightheadedness dizziness or weakness blood pressure heart rate normal and stable throughout ER stay, patient is normal hemoglobin no abdominal pain CT scan is negative, patient will admit for monitoring of hemoglobin Admitted Undiagnosed new problem with uncertain prognosis? @ -no Drug Therapy requiring intensive monitoring for toxicity (Heparin, Nitro, Insulin, Cardizem)? @ -no Were any procedures done? @ -no Diagnosis/symptom? @ -Acute GI bleed Acute, or Chronic, or Acute on Chronic? @ -Acute Uncomplicated (without systemic symptoms) or Complicated (systemic symptoms)? @ -Complicated Side effects of treatment? @ -no Exacerbation, Progression, or Severe Exacerbation? @ -exacerbation Poses a threat to life or bodily function? How? (Chest pain, [place], CA, pneumonia, PE, COPD, DKA, ARF, appy, cholecystitis, CVA, Diverticulitis, Homicidal, Suicidal, threat to staff... and all critical care pts) @ -yes w acute GIB Reevaluation #5: Differential GI Bleed: Esophageal varices, aortoenteric fistula, Dilcia-Bernal, gastritis, peptic ulcer disease, diverticulosis, inflammatory bowel disease, hemorrhoids, fissure, colitis, malignancy, Meckel's diverticulum, this is not meant to be an all- inclusive list. - Consultations Consultation #1: Spoke with [facility] who agrees to admit this patient Medical Decision Making - Medical Decision Making 79 female coming to the ER for evaluation of GI bleed bright red blood per rectum, no lightheadedness dizziness or weakness blood pressure heart rate normal and stable throughout ER stay, patient is normal hemoglobin no abdominal pain CT scan is negative, patient will admit for monitoring of hemoglobin - Lab Data Result diagrams: 12/20/24 06:01 12/19/24 17:53 Lab Results 12/14/24 12/14/24 12/14/24 Range/Units 20:27 20:27 20:27 WBC 6.37 (4.50-10.00) 10*3/uL RBC 4.35 (4.10-5.20) 10*6/uL Hgb 12.6 (12.0-15.0) g/dL Hct 37.1 L (37.2-46.3) % MCV 85.3 (80.0-97.0) fL MCH 29.0 (27.0-32.0) pg MCHC 34.0 (32.0-37.0) g/dL Plt Count 239 (140-440) 10*3/uL MPV 10.2 (9.5-12.2) fL Immature Gran % (Auto) 0.3 % Neutrophils % 60.3 % Lymphocytes % 30.6 % Monocytes % 5.2 % Eosinophils % 3.0 % Basophils % 0.6 % Immature Gran # 0.02 (0.00-0.04) 10*3/uL Neutrophils # 3.84 (1.80-7.70) 10*3/uL Lymphocytes # 1.95 (0.90-5.00) 10*3/uL Monocytes # 0.33 (0.20-1.00) 10*3/uL Eosinophils # 0.19 (0.04-0.35) 10*3/uL Basophils # 0.04 (0.00-0.10) 10*3/uL PT 9.9 L (10.0-12.5) sec INR 0.9 (<1.2) APTT 19.9 L (22.0-30.0) sec Sodium 142 (137-145) mmol/L Potassium 3.9 (3.5-5.1) mmol/L Chloride 107 (98-107) mmol/L Carbon Dioxide 24 (22-30) mmol/L Anion Gap 11 mmol/L BUN 19 H (7-17) mg/dL Creatinine 0.94 (0.52-1.04) mg/dL Est GFR (CKD-EPI)AfAm 68 (>60 ml/min/1.73 sqM) Est GFR (CKD-EPI)NonAf 59 (>60 ml/min/1.73 sqM) Glucose 152 H (74-99) mg/dL Calcium 9.1 (8.4-10.2) mg/dL Magnesium 1.5 L (1.6-2.3) mg/dL Total Bilirubin 0.4 (0.2-1.3) mg/dL AST 33 (14-36) U/L ALT 26 (4-34) U/L Alkaline Phosphatase 57 (38-126) U/L Troponin I (0.000-0.034) ng/mL Total Protein 6.4 (6.3-8.2) g/dL Albumin 3.8 (3.5-5.0) g/dL Lipase 121 (23-300) U/L 04/26/25 Range/Units 20:27 WBC (4.50-10.00) 10*3/uL RBC (4.10-5.20) 10*6/uL Hgb (12.0-15.0) g/dL Hct (37.2-46.3) % MCV (80.0-97.0) fL MCH (27.0-32.0) pg MCHC (32.0-37.0) g/dL Plt Count (140-440) 10*3/uL MPV (9.5-12.2) fL Immature Gran % (Auto) % Neutrophils % % Lymphocytes % % Monocytes % % Eosinophils % % Basophils % % Immature Gran # (0.00-0.04) 10*3/uL Neutrophils # (1.80-7.70) 10*3/uL Lymphocytes # (0.90-5.00) 10*3/uL Monocytes # (0.20-1.00) 10*3/uL Eosinophils # (0.04-0.35) 10*3/uL Basophils # (0.00-0.10) 10*3/uL PT (10.0-12.5) sec INR (<1.2) APTT (22.0-30.0) sec Sodium (137-145) mmol/L Potassium (3.5-5.1) mmol/L Chloride (98-107) mmol/L Carbon Dioxide (22-30) mmol/L Anion Gap mmol/L BUN (7-17) mg/dL Creatinine (0.52-1.04) mg/dL Est GFR (CKD-EPI)AfAm (>60 ml/min/1.73 sqM) Est GFR (CKD-EPI)NonAf (>60 ml/min/1.73 sqM) Glucose (74-99) mg/dL Calcium (8.4-10.2) mg/dL Magnesium (1.6-2.3) mg/dL Total Bilirubin (0.2-1.3) mg/dL AST (14-36) U/L ALT (4-34) U/L Alkaline Phosphatase (38-126) U/L Troponin I <0.012 (0.000-0.034) ng/mL Total Protein (6.3-8.2) g/dL Albumin (3.5-5.0) g/dL Lipase (23-300) U/L - Radiology Data Radiology results: report reviewed (CT abdomen pelvis negative for acute disease), image reviewed Disposition Clinical Impression: Lower gastrointestinal hemorrhage Disposition: ADMITTED IP TO THIS [facility] Condition: Fair Is patient prescribed a controlled substance at d/c from ED?: No Time of Disposition: 22:30
[2024-12-14] MEDS: SODIUM CHLORIDE 0.9% 1,000 ML IV STA (20:29)
[2024-12-14 20:33] LABS: Basophils # (A) 0.04 10*3/uL (0.00-0.10); Basophils % (A) 0.6 %; Eosinophils # (A) 0.19 10*3/uL (0.04-0.35); HCT 37.1 % (37.2-46.3); HGB 12.6 g/dL (12.0-15.0); Lymphocytes # (A) 1.95 10*3/uL (0.90-5.00); Lymphocytes % (A) 30.6 %; MCV 85.3 fL (80.0-97.0); Mean Platelet Volume 10.2 fL (9.5-12.2); Monocytes # (A) 0.33 10*3/uL (0.20-1.00); Monocytes % (A) 5.2 %; Neutrophils # (A) 3.84 10*3/uL (1.80-7.70); Neutrophils % (A) 60.3 %; Platelet Count 239 10*3/uL (140-440); RBC 4.35 10*6/uL (4.10-5.20); RDW 14.2 % (11.5-14.5); WBC 6.37 10*3/uL (4.50-10.00)
[2024-12-14 20:56] LABS: ALT 26 U/L (4-34); AST 33 U/L (14-36); African American GFR (CKD) 68 (>60 ml/min/1.73 sqM); Albumin 3.8 g/dL (3.5-5.0); Alkaline Phosphatase 57 U/L (38-126); Anion Gap 11 mmol/L; Blood Urea Nitrogen 19 mg/dL (7-17); Calcium 9.1 mg/dL (8.4-10.2); Carbon Dioxide 24 mmol/L (22-30); Chloride 107 mmol/L (98-107); Glucose 152 mg/dL (74-99); Lipase 121 U/L (23-300); Magnesium 1.5 mg/dL (1.6-2.3); Non-African American GFR(CKD) 59 (>60 ml/min/1.73 sqM); Potassium 3.9 mmol/L (3.5-5.1); Sodium 142 mmol/L (137-145); Total Bilirubin 0.4 mg/dL (0.2-1.3); Total Protein 6.4 g/dL (6.3-8.2)
[2024-12-14 21:08] LABS: INR 0.9 (<1.2); Prothrombin Time 9.9 sec (10.0-12.5)
[2024-12-14] MEDS: ONDANSETRON 4 MG/2 ML VIAL IVP STA (21:18)
[2024-12-14] MEDS: MORPHINE SULFATE 4 MG/ML SYRINGE IVP STA (21:18)
[2024-12-14 21:22] LABS: Partial Thromboplastin Time 19.9 sec (22.0-30.0)
[2024-12-14] MEDS: MAGNESIUM OXIDE 400 MG TAB PO STA ×2 (21:39→21:47)
[2024-12-14] MEDS: MAGNESIUM SULFATE-D5W PMX 1 GM in DEXTROSE/WATER 1 100ML.BAG IVPB ONE (21:39)
[2024-12-14] MEDS ORDERED: NALOXONE 0.4 MG/ML 1 ML VIAL IV PRN (22:26)
[2024-12-14] MEDS: PANTOPRAZOLE 40 MG/10 ML VIAL IV SCH (22:48)
[2024-12-14] MEDS: SODIUM CHLORIDE 0.9% 1,000 ML IV SCH (22:49)
[2024-12-14 23:19] LABS: Basophils # (A) 0.04 10*3/uL (0.00-0.10); Basophils % (A) 0.5 %; Eosinophils # (A) 0.19 10*3/uL (0.04-0.35); Eosinophils % (A) 2.5 %; HCT 30.1 % (37.2-46.3); HGB 10.1 g/dL (12.0-15.0); Lymphocytes # (A) 2.43 10*3/uL (0.90-5.00); Lymphocytes % (A) 32.4 %; MCH 29.1 pg (27.0-32.0); MCHC 33.6 g/dL (32.0-37.0); MCV 86.7 fL (80.0-97.0); Mean Platelet Volume 10.6 fL (9.5-12.2); Monocytes # (A) 0.43 10*3/uL (0.20-1.00); Monocytes % (A) 5.7 %; Neutrophils # (A) 4.39 10*3/uL (1.80-7.70); Neutrophils % (A) 58.8 %; Platelet Count 238 10*3/uL (140-440); RBC 3.47 10*6/uL (4.10-5.20); RDW 14.5 % (11.5-14.5); WBC 7.49 10*3/uL (4.50-10.00)
--- NOTE | 2024-12-14 23:27 | CT ---
EXAMINATION TYPE: CT abdomen pelvis w con DATE OF EXAM: 12/14/2024 COMPARISON: CT abdomen July 24, 2023 CLINICAL INDICATION: Female, 79 years old with history of pain, Blood in stool extensive abd surgical HX, TECHNIQUE: CT scan of the abdomen and pelvis is performed with IV Contrast, patient injected with 80 mL of Isovu e 300., (none if empty) Oral contrast used: without Oral Contrast (none if empty) CT DLP: 1362.8 mGycm, Automated exposure control for dose reduction was used. FINDINGS: LUNG BASES: Overlying loop recorder redemonstrated.. LIVER/GB: Gallbladder surgically absent. Visualized liver heterogeneously hypodense consistent with d iffuse fatty infiltration. PANCREAS: No significant abnormality is seen. SPLEEN: No significant abnormality is seen. ADRENALS: No significant abnormality is seen. KIDNEYS: Cortical thinning bilaterally. No hydronephrosis seen bilaterally.. BOWEL: Persistent surgical change at level of diaphragmatic hiatus with moderate size hiatal hernia r edemonstrated. Moderate to severe wall thickening of the distal esophagus just proximal to this redem onstrated. No abnormal small bowel dilatation. Scattered colonic diverticula. Fluid-filled colon is p resent. Mild fat stranding in the distal transverse colon. Prominent fluid-filled sigmoid rectal colo n. UTERUS/[place]NEX[place]: Uterus is surgically absent. Multiple surgical clips throughout the pelvis are present . LYMPH NODES: No greater than 1cm abdominal or pelvic lymph nodes are appreciated. OSSEOUS STRUCTURES: Metallic artifact from total right hip arthroplasty is seen, this causes streak a rtifact limiting evaluation of pelvic structures. OTHER: Numerous coils over the anterior wall of the abdomen from prior ventral wall hernia repair myriam kimmie are seen. Vertical oriented scar over the anterior abdominal wall is present. IMPRESSION: 1. Colonic diverticulosis with acute diverticulitis distal transverse colon felt present. Fluid in th e distal colon is abnormal finding and may reflect product of additional colitis and/or diarrhea. Cor relate clinically. [facility], , 12/14/2024 11:25 PM
[2024-12-15] MEDS: MORPHINE SULFATE 4 MG/ML SYRINGE IV PRN (01:10)
[2024-12-15] MEDS: GABAPENTIN 300 MG CAP PO SCH (01:23)
[2024-12-15 08:14] LABS: Basophils # (A) 0.03 10*3/uL (0.00-0.10); Basophils % (A) 0.6 %; Eosinophils # (A) 0.13 10*3/uL (0.04-0.35); Eosinophils % (A) 2.8 %; HCT 25.8 % (37.2-46.3); Lymphocytes # (A) 2.07 10*3/uL (0.90-5.00); Lymphocytes % (A) 44.8 %; MCH 28.1 pg (27.0-32.0); MCHC 31.8 g/dL (32.0-37.0); MCV 88.4 fL (80.0-97.0); Mean Platelet Volume 10.5 fL (9.5-12.2); Monocytes # (A) 0.29 10*3/uL (0.20-1.00); Monocytes % (A) 6.3 %; Neutrophils # (A) 2.09 10*3/uL (1.80-7.70); Neutrophils % (A) 45.3 %; Platelet Count 214 10*3/uL (140-440); RBC 2.92 10*6/uL (4.10-5.20); RDW 14.7 % (11.5-14.5); WBC 4.62 10*3/uL (4.50-10.00)
[2024-12-15 08:22] LABS: HGB 8.2 g/dL (12.0-15.0)
[2024-12-15 08:52] LABS: ALT 33 U/L (4-34); AST 55 U/L (14-36); African American GFR (CKD) 53 (>60 ml/min/1.73 sqM); Albumin 2.9 g/dL (3.5-5.0); Alkaline Phosphatase 56 U/L (38-126); Anion Gap 5 mmol/L; Blood Urea Nitrogen 24 mg/dL (7-17); Calcium 8.7 mg/dL (8.4-10.2); Carbon Dioxide 26 mmol/L (22-30); Chloride 110 mmol/L (98-107); Glucose 130 mg/dL (74-99); Magnesium 2.1 mg/dL (1.6-2.3); Non-African American GFR(CKD) 46 (>60 ml/min/1.73 sqM); Phosphorus 4.6 mg/dL (2.5-4.5); Potassium 4.4 mmol/L (3.5-5.1); Sodium 141 mmol/L (137-145); Total Bilirubin 0.5 mg/dL (0.2-1.3); Total Protein 5.1 g/dL (6.3-8.2)
--- NOTE | 2024-12-15 10:44 | P.GSCN ---
History of Present Illness Consult date: 12/15/24 Reason for Consult: GI bleed/diverticulitis History of present illness: This is a 79-year-old female who presents emergency room complaints of some mild abdominal pain and rectal bleeding. Patient's CAT scan suggestive of diverticulitis of the transverse colon. Patient has had some rectal bleeding over the last 48 hours. Her hemoglobin is gone from 12 to 10-8.6 in the last 16 hours. Past Medical History Past Medical History: Cancer, Chest Pain / Angina, Diabetes Mellitus, Eye Disorder, Fibromyalgia, GERD/Reflux, Hearing Disorder / Deafness, Hyperlipidemia, Hypertension, Liver Disease, Musculoskeletal Disorder, Osteoarthritis (OA), Pneumonia, Supraventricular Tachycardia (SVT) Additional Past Medical History / Comment(s): Intestinal adhesions, RESTLESS LEG, Hiatal Hernia, MENIERES, DIVERTICULITIS, GLAUCOMA - right eye, NEUROPATHY bilateral legs, hx anemia, irregular heartbeat (not afib/flutter), DDD, difficulty hearing certain tones, right ear [place], gout, hx skin cancer, fatty liver, diet controlled diabetes. History of Any Multi-Drug Resistant Organisms: None Reported Past Surgical History: Appendectomy, Bladder Surgery, Bowel Resection, Breast Surgery, Cholecystectomy, Ear Surgery, Heart Catheterization, Hernia Repair, Hysterectomy, Joint Replacement, Orthopedic Surgery, Tonsillectomy, Tubal Ligation Additional Past Surgical History / Comment(s): Direct Microlaryngoscopy and re moval of left vocal cord mass, benign nicole exsional breast biopsy, diagnostic laparoscopy with lysis of adhesions, bilateral knee replacements, bilateral cataracts removed with lens implants, TUBE IN RIGHT EAR FOR MENIERES, LEFT THUMB SURGERY, hiatal hernia repair, abdominal ventral hernia repair, EGD with dilation X3, spur removed from left and right heel, total right hip replacement. Past Anesthesia/Blood Transfusion Reactions: Previous Problems w/ Anesthesia, Motion Sickness, Postoperative Nausea & Vomiting (PONV) Additional Past Anesthesia/Blood Transfusion Reaction / Comm: STATES "DIFFICULT INTUBATION-JAW LOCKED UP AFTER A PREVIOUS INTUBATION". "Have to use child size tube so jaw doesn't lock up". "Scraped vocal cord-evaluated by Dr Vani de la torre". Difficult IV start. Past Psychological History: Anxiety, Depression Smoking Status: Former smoker Past Alcohol Use History: None Reported Past Drug Use History: None Reported - Past Family History Brother(s) Family Medical History: Cancer Mother Family Medical History: Cancer, Deep Vein Thrombosis (DVT), Pulmonary Embolus Additional Family Medical History / Comment(s): STOMACH CANCER. Father Family Medical History: No Reported History Additional Family Medical History / Comment(s): COMMITTED SUICIDE. Medications and Allergies Home Medications Medication Instructions Recorded Confirmed Type Fenofibrate [Lofibra] 160 mg PO DAILY 11/17/18 06/21/24 History Omeprazole 40 mg PO DAILY 10/14/20 06/21/24 History HYDROcodone/APAP 7.5-325MG [[place] 1.5 tab PO HS 05/02/21 06/21/24 History 7.5-325] Ezetimibe [Zetia] 10 mg PO DAILY 03/16/22 06/21/24 History rOPINIRole HCL [Requip] 1 mg PO HS 03/16/22 06/21/24 History Desvenlafaxine Succinate [Pristiq] 100 mg PO DAILY 04/07/22 06/21/24 History Gabapentin [Neurontin] 300 mg PO BID 04/07/22 06/21/24 History Vit C/E/Zn/Coppr/Lutein/Zeaxan 1 tab PO BID 04/07/22 06/21/24 History [Preservision Areds 2 Chew Tab] Losartan Potassium [Cozaar] 100 mg PO DAILY 04/28/22 06/21/24 History Furosemide [Lasix] 20 mg PO DAILY 09/14/22 06/21/24 History Metoprolol Succinate (ER) [Toprol 100 mg PO DAILY 09/14/22 06/21/24 History XL] Clopidogrel [Plavix] 75 mg PO DAILY #30 tab 01/01/23 06/21/24 Rx tiZANidine HCL [Zanaflex] 4 mg PO DAILY 03/24/23 06/21/24 History Meclizine [Antivert] 25 mg PO DIRECTED PRN 04/14/23 06/21/24 History amLODIPine [Norvasc] 2.5 mg PO DAILY 04/14/23 06/21/24 History HYDROcodone/APAP 7.5-325MG [[place] 1 tab PO Q6HR PRN 3 Days #12 tab 04/18/23 06/21/24 Rx 7.5-325] Allergies Allergy/AdvReac Type Severity Reaction Status Date / Time adhesive Allergy Rash/Hives Verified 12/14/24 19:52 Penicillins Allergy Rash/Hives Verified 12/14/24 19:52 Zwrkvzz-KKX-BoO Reductase Allergy Rash/Hives Verified 12/14/24 19:52 Inhibitor [Zwjnyzz-Afr-Agj Reductase Inhibitor] aspirin AdvReac STOMACH Verified 12/14/24 19:52 UPSET/HEARTBURN Surgical - Exam Vital Signs Temp Pulse Resp BP Pulse Ox 98.6 F 84 18 160/89 96 12/14/24 19:49 12/14/24 19:49 12/14/24 19:49 12/14/24 19:49 12/14/24 19:49 - General well developed, well nourished, no distress - ENT normal pinna - Neck no masses - Respiratory normal expansion - Cardiovascular Rhythm: regular - Abdomen Mild tenderness in the epigastric area Abdomen: soft Results - Labs 12/15/24 07:53 12/15/24 07:53 Abnormal Lab Results - Last 24 Hours (Table) 12/14/24 12/14/24 12/14/24 Range/Units 20:27 20:27 20:27 RBC (4.10-5.20) 10*6/uL Hgb (12.0-15.0) g/dL Hct 37.1 L (37.2-46.3) % MCHC (32.0-37.0) g/dL PT 9.9 L (10.0-12.5) sec APTT 19.9 L (22.0-30.0) sec Chloride (98-107) mmol/L BUN 19 H (7-17) mg/dL Creatinine (0.52-1.04) mg/dL Glucose 152 H (74-99) mg/dL Phosphorus (2.5-4.5) mg/dL Magnesium 1.5 L (1.6-2.3) mg/dL AST (14-36) U/L Total Protein (6.3-8.2) g/dL Albumin (3.5-5.0) g/dL 12/14/24 12/15/24 12/15/24 Range/Units 22:48 07:53 07:53 RBC 3.47 L 2.92 L (4.10-5.20) 10*6/uL Hgb 10.1 L 8.2 L D (12.0-15.0) g/dL Hct 30.1 L 25.8 L (37.2-46.3) % MCHC 31.8 L (32.0-37.0) g/dL PT (10.0-12.5) sec APTT (22.0-30.0) sec Chloride 110 H (98-107) mmol/L BUN 24 H (7-17) mg/dL Creatinine 1.15 H (0.52-1.04) mg/dL Glucose 130 H (74-99) mg/dL Phosphorus 4.6 H (2.5-4.5) mg/dL Magnesium (1.6-2.3) mg/dL AST 55 H (14-36) U/L Total Protein 5.1 L (6.3-8.2) g/dL Albumin 2.9 L (3.5-5.0) g/dL Diabetes panel 12/14/24 12/15/24 Range/Units 20:27 07:53 Sodium 142 141 (137-145) mmol/L Potassium 3.9 4.4 (3.5-5.1) mmol/L Chloride 107 110 H (98-107) mmol/L Carbon Dioxide 24 26 (22-30) mmol/L BUN 19 H 24 H (7-17) mg/dL Creatinine 0.94 1.15 H (0.52-1.04) mg/dL Glucose 152 H 130 H (74-99) mg/dL Calcium 9.1 8.7 (8.4-10.2) mg/dL AST 33 55 H (14-36) U/L ALT 26 33 (4-34) U/L Alkaline Phosphatase 57 56 (38-126) U/L Total Protein 6.4 5.1 L (6.3-8.2) g/dL Albumin 3.8 2.9 L (3.5-5.0) g/dL Calcium panel 12/14/24 12/15/24 Range/Units 20:27 07:53 Calcium 9.1 8.7 (8.4-10.2) mg/dL Phosphorus 4.6 H (2.5-4.5) mg/dL Albumin 3.8 2.9 L (3.5-5.0) g/dL Pituitary panel 12/14/24 12/15/24 Range/Units 20:27 07:53 Sodium 142 141 (137-145) mmol/L Potassium 3.9 4.4 (3.5-5.1) mmol/L Chloride 107 110 H (98-107) mmol/L Carbon Dioxide 24 26 (22-30) mmol/L BUN 19 H 24 H (7-17) mg/dL Creatinine 0.94 1.15 H (0.52-1.04) mg/dL Glucose 152 H 130 H (74-99) mg/dL Calcium 9.1 8.7 (8.4-10.2) mg/dL Adrenal panel 12/14/24 12/15/24 Range/Units 20:27 07:53 Sodium 142 141 (137-145) mmol/L Potassium 3.9 4.4 (3.5-5.1) mmol/L Chloride 107 110 H (98-107) mmol/L Carbon Dioxide 24 26 (22-30) mmol/L BUN 19 H 24 H (7-17) mg/dL Creatinine 0.94 1.15 H (0.52-1.04) mg/dL Glucose 152 H 130 H (74-99) mg/dL Calcium 9.1 8.7 (8.4-10.2) mg/dL Total Bilirubin 0.4 0.5 (0.2-1.3) mg/dL AST 33 55 H (14-36) U/L ALT 26 33 (4-34) U/L Alkaline Phosphatase 57 56 (38-126) U/L Total Protein 6.4 5.1 L (6.3-8.2) g/dL Albumin 3.8 2.9 L (3.5-5.0) g/dL Assessment and Plan Plan: GI bleed due to diverticulitis and Plavix. Patient received 1 unit of packed red cells. She will be observed. We will also order tagged RBC scan
--- NOTE | 2024-12-15 11:33 | P.HPIM ---
History of Present Illness This is a pleasant 79 years old female with past medical history of multiple medical problems as below including history of stroke about 1 year ago and she is on Plavix. Patient presents because of abdominal pain and bleeding Via rectum As per patient it started yesterday and she has almost 10 times bleeding per rectum This was associated with abdominal pain in the upper abdomen pain about 9/10 of 1 day duration felt like something compressing. It is in the middle of the abdomen and nonradiating. No vomiting She is also have some exertional dyspnea most likely secondary to anemia but no chest pain or dyspnea at rest or orthopnea No urinary complaint she has mild headache but no dizziness. No weakness or numbness. She takes Plavix because she had a small stroke 1 to 2 years ago with some residual right eye vision problem or right arm weakness Vitals as stable and afebrile Hemoglobin is dropping 12.6, 10.1 and 8.2 this morning. Surgery team ordered units of blood Creatinine 0.9 up to 1.1. Rest of exams and labs including BMP LFT INR troponin were negative CT of the abdomen and pelvis showing colonic diverticulosis with acute diverticulitis distal and transverse colon. Also there is fluid in the colon which could be colitis or products of diarrhea but also could be from bleeding. Review of Systems Review of systems CONSTITUTIONAL: No fever, no malaise, no fatigue. HEENT: No recent visual problems or hearing problems. Denied any sore throat. CARDIOVASCULAR: No orthopnea, PND, no palpitations, no syncope. PULMONARY: No shortness of breath, no cough, no hemoptysis. GASTROINTESTINAL: No diarrhea, no nausea, no vomiting,. Normoactive bowel sounds. NEUROLOGICAL: No headaches, no weakness, no numbness. HEMATOLOGICAL: Denies any bleeding or petechiae. GENITOURINARY: Denies any burning micturition, frequency, or urgency. MUSCULOSKELETAL/RHEUMATOLOGICAL: Denies any joint pain, swelling, or any muscle pain. ENDOCRINE: Denies any polyuria or polydipsia. Past Medical History Past Medical History: Cancer, Chest Pain / Angina, Diabetes Mellitus, Eye Disorder, Fibromyalgia, GERD/Reflux, Hearing Disorder / Deafness, Hyperlipi demia, Hypertension, Liver Disease, Musculoskeletal Disorder, Osteoarthritis (OA), Pneumonia, Supraventricular Tachycardia (SVT) Additional Past Medical History / Comment(s): Intestinal adhesions, RESTLESS LEG, Hiatal Hernia, MENIERES, DIVERTICULITIS, GLAUCOMA - right eye, NEUROPATHY bilateral legs, hx anemia, irregular heartbeat (not afib/flutter), DDD, difficulty hearing certain tones, right ear UNGA, gout, hx skin cancer, fatty liver, diet controlled diabetes. History of Any Multi-Drug Resistant Organisms: None Reported Past Surgical History: Appendectomy, Bladder Surgery, Bowel Resection, Breast Surgery, Cholecystectomy, Ear Surgery, Heart Catheterization, Hernia Repair, Hysterectomy, Joint Replacement, Orthopedic Surgery, Tonsillectomy, Tubal Ligation Additional Past Surgical History / Comment(s): Direct Microlaryngoscopy and removal of left vocal cord mass, benign nicole exsional breast biopsy, diagnostic laparoscopy with lysis of adhesions, bilateral knee replacements, bilateral cat aracts removed with lens implants, TUBE IN RIGHT EAR FOR MENIERES, LEFT THUMB SURGERY, hiatal hernia repair, abdominal ventral hernia repair, EGD with dilation X3, spur removed from left and right heel, total right hip replacement. Past Anesthesia/Blood Transfusion Reactions: Previous Problems w/ Anesthesia, Motion Sickness, Postoperative Nausea & Vomiting (PONV) Additional Past Anesthesia/Blood Transfusion Reaction / Comment(s): STATES "DIFFICULT INTUBATION-JAW LOCKED UP AFTER A PREVIOUS INTUBATION". "Have to use child size tube so jaw doesn't lock up". 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 Difficult IV start. Past Psychological History: Anxiety, Depression Smoking Status: Former smoker Past Alcohol Use History: None Reported Past Drug Use History: None Reported - Past Family History Brother(s) Family Medical History: Cancer Mother Family Medical History: Cancer, Deep Vein Thrombosis (DVT), Pulmonary Embolus Additional Family Medical History / Comment(s): STOMACH CANCER. Father Family Medical History: No Reported History Additional Family Medical History / Comment(s): COMMITTED SUICIDE. Medications and Allergies Home Medications Medication Instructions Recorded Confirmed Type Fenofibrate [Lofibra] 160 mg PO DAILY 11/17/18 06/21/24 History Omeprazole 40 mg PO DAILY 10/14/20 06/21/24 History HYDROcodone/APAP 7.5-325MG [Ridott 1.5 tab PO HS 05/02/21 06/21/24 History 7.5-325] Ezetimibe [Zetia] 10 mg PO DAILY 03/16/22 06/21/24 History rOPINIRole HCL [Requip] 1 mg PO HS 03/16/22 06/21/24 History Desvenlafaxine Succinate [Pristiq] 100 mg PO DAILY 04/07/22 06/21/24 History Gabapentin [Neurontin] 300 mg PO BID 04/07/22 06/21/24 History Vit C/E/Zn/Coppr/Lutein/Zeaxan 1 tab PO BID 04/07/22 06/21/24 History [Preservision Areds 2 Chew Tab] Losartan Potassium [Cozaar] 100 mg PO DAILY 04/28/22 06/21/24 History Furosemide [Lasix] 20 mg PO DAILY 09/14/22 06/21/24 History Metoprolol Succinate (ER) [Toprol 100 mg PO DAILY 09/14/22 06/21/24 History XL] Clopidogrel [Plavix] 75 mg PO DAILY #30 tab 01/01/23 06/21/24 Rx tiZANidine HCL [Zanaflex] 4 mg PO DAILY 03/24/23 06/21/24 History Meclizine [Antivert] 25 mg PO DIRECTED PRN 04/14/23 06/21/24 History amLODIPine [Norvasc] 2.5 mg PO DAILY 04/14/23 06/21/24 History HYDROcodone/APAP 7.5-325MG [Ridott 1 tab PO Q6HR PRN 3 Days #12 tab 04/18/23 06/21/24 Rx 7.5-325] Allergies Allergy/AdvReac Type Severity Reaction Status Date / Time adhesive Allergy Rash/Hives Verified 12/14/24 19:52 Penicillins Allergy Rash/Hives Verified 12/14/24 19:52 Ikffaqv-SDX-SjN Reductase Allergy Rash/Hives Verified 12/14/24 19:52 Inhibitor [Hrackft-Atj-Lah Reductase Inhibitor] aspirin AdvReac STOMACH Verified 12/14/24 19:52 UPSET/HEARTBURN Physical Exam Vitals: Vital Signs Temp Pulse Resp BP Pulse Ox 12/15/24 11:00 76 12 110/65 97 12/15/24 07:39 76 12 110/53 100 12/15/24 05:48 68 16 105/69 95 12/15/24 05:15 78 16 110/58 97 12/15/24 01:25 84 19 115/59 97 12/14/24 21:25 80 18 142/96 96 12/14/24 19:49 98.6 F 84 18 160/89 96 Intake and Output 12/14/24 12/15/24 12/15/24 22:59 06:59 14:59 Other: Weight 83.007 kg GENERAL: The patient is alert and oriented x3, not in any acute distress. Well developed, well nourished. HEENT: Pupils are round and equally reacting to light. EOMI. No scleral icterus. No conjunctival pallor. Normocephalic, atraumatic. No pharyngeal erythema. No thyromegaly. CARDIOVASCULAR: S1 and S2 present. No murmurs, rubs, or gallops. PULMONARY: Chest is clear to auscultation, no wheezing , no crackles. -ABDOMEN: Soft, moderate epigastric tenderness with no guarding or rebound tenderness, nondistended, normoactive bowel sounds. No palpable organomegaly. MUSCULOSKELETAL: No joint swelling or deformity. EXTREMITIES: No cyanosis, clubbing, or pedal edema. NEUROLOGICAL: Gross neurological examination did not reveal any focal deficits. SKIN: No rashes. no petechiae. Results CBC & Chem 7: 12/15/24 07:53 12/15/24 07:53 Labs: Abnormal Lab Results - Last 24 Hours (Table) 12/14/24 12/14/24 12/14/24 Range/Units 20:27 20:27 20:27 RBC (4.10-5.20) 10*6/uL Hgb (12.0-15.0) g/dL Hct 37.1 L (37.2-46.3) % MCHC (32.0-37.0) g/dL PT 9.9 L (10.0-12.5) sec APTT 19.9 L (22.0-30.0) sec Chloride (98-107) mmol/L BUN 19 H (7-17) mg/dL Creatinine (0.52-1.04) mg/dL Glucose 152 H (74-99) mg/dL Phosphorus (2.5-4.5) mg/dL Magnesium 1.5 L (1.6-2.3) mg/dL AST (14-36) U/L Total Protein (6.3-8.2) g/dL Albumin (3.5-5.0) g/dL Crossmatch 12/14/24 12/15/24 12/15/24 Range/Units 22:48 07:53 07:53 RBC 3.47 L 2.92 L (4.10-5.20) 10*6/uL Hgb 10.1 L 8.2 L D (12.0-15.0) g/dL Hct 30.1 L 25.8 L (37.2-46.3) % MCHC 31.8 L (32.0-37.0) g/dL PT (10.0-12.5) sec APTT (22.0-30.0) sec Chloride 110 H (98-107) mmol/L BUN 24 H (7-17) mg/dL Creatinine 1.15 H (0.52-1.04) mg/dL Glucose 130 H (74-99) mg/dL Phosphorus 4.6 H (2.5-4.5) mg/dL Magnesium (1.6-2.3) mg/dL AST 55 H (14-36) U/L Total Protein 5.1 L (6.3-8.2) g/dL Albumin 2.9 L (3.5-5.0) g/dL Crossmatch 12/15/24 Range/Units 10:32 RBC (4.10-5.20) 10*6/uL Hgb (12.0-15.0) g/dL Hct (37.2-46.3) % MCHC (32.0-37.0) g/dL PT (10.0-12.5) sec APTT (22.0-30.0) sec Chloride (98-107) mmol/L BUN (7-17) mg/dL Creatinine (0.52-1.04) mg/dL Glucose (74-99) mg/dL Phosphorus (2.5-4.5) mg/dL Magnesium (1.6-2.3) mg/dL AST (14-36) U/L Total Protein (6.3-8.2) g/dL Albumin (3.5-5.0) g/dL Crossmatch See Detail Assessment and Plan Assessment: Acute bleeding per rectum with abdominal pain Possible acute colitis and possible colon transverse diverticulitis Acute blood loss anemia secondary to above status post units of blood transfusion 05/17 History of stroke with residual right vision deficiency, mild and right arm weakness, mild. On Plavix at home which is put on hold Fibromyalgia Hypertension Hyperlipidemia Osteoarthritis History of supraventricular tachycardia Bilateral leg neuropathy Degenerative disc disease Plan: Continue the blood transfusion Continue with pain management Continue with IV hydration Continue with Protonix start ceftriaxone and Flagyl for possible diverticulitis versus colitis Surgery team on the case and they requested nuclear scan for bleeding which is pending Monitor hemoglobin and creatinine and vitals Further recommendation based on the clinical course GI prophylaxis Protonix DVT prophylaxis: Mechanical because of her bleeding problem Prognosis guarded
[2024-12-15] MEDS: metroNIDAZOLE-NS PMX 500 MG in SALINE 1 100ML.BAG IVPB SCH (17:00)
--- NOTE | 2024-12-15 18:03 | NM ---
EXAMINATION TYPE: NM GI bleeding DATE OF EXAM: 12/15/2024 CLINICAL INDICATION: Female, 79 years old with history of GI bleed, transverse colon; COMPARISON: 12/14/2024 Following administration of 3 ml PYP 19.4 mCi Tc 99m Sodium Pertechnete. Immediate images post inject ion. FINDINGS: Normal tracer activity is seen in the blood pool of the abdominal aorta, common iliac arteries, femor al arteries, liver, and spleen on all of the interval images. Later images show accumulation of trace r in the urinary bladder, which is consistent with excreted tracer. No abnormal tracer uptake is pres ent outside the blood pool that would be consistent with an active GI bleed. IMPRESSION: Negative examination. No evidence of active gastrointestinal bleeding during the initial 1 hr observa tion period. [facility], , 12/15/2024 6:01 PM
[2024-12-15 22:08] LABS: HCT 29.1 % (37.2-46.3); MCH 28.7 pg (27.0-32.0); MCHC 33.7 g/dL (32.0-37.0); MCV 85.3 fL (80.0-97.0); Mean Platelet Volume 10.9 fL (9.5-12.2); Platelet Count 184 10*3/uL (140-440); RBC 3.41 10*6/uL (4.10-5.20); RDW 15.1 % (11.5-14.5); WBC 4.79 10*3/uL (4.50-10.00)
[2024-12-15 22:24] LABS: HGB 9.8 g/dL (12.0-15.0)
[2024-12-16 07:46] LABS: Basophils # (A) 0.02 10*3/uL (0.00-0.10); Basophils % (A) 0.6 %; Eosinophils # (A) 0.15 10*3/uL (0.04-0.35); Eosinophils % (A) 4.1 %; HCT 26.5 % (37.2-46.3); HGB 8.8 g/dL (12.0-15.0); Lymphocytes # (A) 1.72 10*3/uL (0.90-5.00); Lymphocytes % (A) 47.5 %; MCH 28.5 pg (27.0-32.0); MCHC 33.2 g/dL (32.0-37.0); MCV 85.8 fL (80.0-97.0); Mean Platelet Volume 10.5 fL (9.5-12.2); Monocytes # (A) 0.22 10*3/uL (0.20-1.00); Monocytes % (A) 6.1 %; Neutrophils # (A) 1.49 10*3/uL (1.80-7.70); Neutrophils % (A) 41.1 %; Platelet Count 171 10*3/uL (140-440); RBC 3.09 10*6/uL (4.10-5.20); RDW 15.2 % (11.5-14.5); WBC 3.62 10*3/uL (4.50-10.00)
[2024-12-16 08:32] LABS: African American GFR (CKD) >90 (>60 ml/min/1.73 sqM); Anion Gap 4 mmol/L; Blood Urea Nitrogen 14 mg/dL (7-17); Calcium 8.5 mg/dL (8.4-10.2); Carbon Dioxide 24 mmol/L (22-30); Chloride 114 mmol/L (98-107); Glucose 100 mg/dL (74-99); Non-African American GFR(CKD) 86 (>60 ml/min/1.73 sqM); Sodium 142 mmol/L (137-145)
--- NOTE | 2024-12-16 09:24 | P.PN ---
Subjective This is a pleasant 79 years old female with past medical history of multiple medical problems as below including history of stroke about 1 year ago and she is on Plavix. Patient presents because of abdominal pain and bleeding Via rectum As per patient it started yesterday and she has almost 10 times bleeding per rectum This was associated with abdominal pain in the upper abdomen pain about 9/10 of 1 day duration felt like something compressing. It is in the middle of the abdomen and nonradiating. No vomiting She is also have some exertional dyspnea most likely secondary to anemia but no chest pain or dyspnea at rest or orthopnea No urinary complaint she has mild headache but no dizziness. No weakness or numbness. She takes Plavix because she had a small stroke 1 to 2 years ago with some residual right eye vision problem or right arm weakness Vitals as stable and afebrile Hemoglobin is dropping 12.6, 10.1 and 8.2 this morning. Surgery team ordered units of blood Creatinine 0.9 up to 1.1. Rest of exams and labs including BMP LFT INR troponin were negative CT of the abdomen and pelvis showing colonic diverticulosis with acute di verticulitis distal and transverse colon. Also there is fluid in the colon which could be colitis or products of diarrhea but also could be from bleeding. 12/16 Patient lying in bed with little discomfort in her abdomen rather than pain No dysuria no bowel movement since admission. Blood pressure stable. Hemoglobin slightly going down to 8.8 Nuclear GI bleeding scan was negative for active bleeding Patient is on IV Protonix and ceftriaxone and Flagyl Creatinine 1.1 Monitor hemoglobin and creatinine. Plavix on hold Review of systems CONSTITUTIONAL: No fever, no malaise, no fatigue. HEENT: No recent visual problems or hearing problems. Denied any sore throat. HEMATOLOGICAL: Denies any bleeding or petechiae. GENITOURINARY: Denies any burning micturition, frequency, or urgency. MUSCULOSKELETAL/RHEUMATOLOGICAL: Denies any joint pain, swelling, or any muscle pain. ENDOCRINE: Denies any polyuria or polydipsia. Active Medication List Gabapentin (Gabapentin 300 Mg Cap) 300 mg PO BID [facility] Last Admin: 12/15/24 20:38 Dose: 300 mg Documented by: Admin: 12/15/24 08:23 Dose: 300 mg Documented by: Admin: 12/15/24 01:23 Dose: 300 mg Documented by: AB Sodium Chloride (Saline 0.9%) 1,000 mls @ 75 mls/hr IV .[id number] [facility] Last Admin: 12/16/24 03:43 Dose: 75 mls/hr Documented by: Admin: 12/15/24 20:36 Dose: Not Given Documented by: HW Non-Admin Reason: prior bag infusing Admin: 12/14/24 22:49 Dose: 75 mls/hr Documented by: AB Metronidazole 500 mg/ IV (Solution) 100 mls @ 100 mls/hr IVPB Q8H [facility]; Protocol Last Admin: 12/16/24 03:42 Dose: 100 mls/hr Documented by: Admin: 12/15/24 20:38 Dose: 100 mls/hr Documented by: Admin: 12/15/24 17:00 Dose: Not Given Documented by: EUN Non-Admin Reason: Not In Room Ceftriaxone Sodium 1 gm/ (Sodium Chloride) 50 mls @ 100 mls/hr IVPB Q24H [facility]; Protocol Last Admin: 12/15/24 17:41 Dose: 100 mls/hr Documented by: EUN Morphine Sulfate (Morphine Sulfate 4 Mg/Ml Syringe) 4 mg IV Q4HR PRN PRN Reason: Severe Pain (Scale 7 to 10) Last Admin: 12/16/24 01:55 Dose: 4 mg Documented by: Admin: 12/15/24 18:51 Dose: 4 mg Documented by: Admin: 12/15/24 05:19 Dose: 4 mg Documented by: Admin: 12/15/24 01:10 Dose: 4 mg Documented by: AB Naloxone HCl (Naloxone 0.4 Mg/Ml 1 Ml Vial) 0.2 mg IV Q2M PRN PRN Reason: Opioid Reversal Ondansetron HCl (Ondansetron 4 Mg/2 Ml Vial) 4 mg IVP Q8HR PRN PRN Reason: Nausea And Vomiting Pantoprazole Sodium (Pantoprazole 40 Mg/10 Ml Vial) 40 mg IV DAILY [facility] Last Admin: 12/15/24 08:23 Dose: 40 mg Documented by: Admin: 12/14/24 22:48 Dose: 40 mg Documented by: AB Ropinirole HCl (Ropinirole Hcl 1 Mg Tab) 1 mg PO HS [facility] Last Admin: 12/15/24 20:38 Dose: 1 mg Documented by: Admin: 12/15/24 01:23 Dose: 1 mg Documented by: AB Discontinued Medications Sodium Chloride (Saline 0.9%) 1,000 mls @ 999 mls/hr IV .Q1H1M STA Stop: 12/14/24 21:01 Last Admin: 12/14/24 20:29 Dose: 999 mls/hr Documented by: EVITA Magnesium Sulfate/Dextrose 1 (gm/ IV Solution) 100 mls @ 100 mls/hr IVPB ONCE ONE Stop: 12/14/24 22:29 Last Admin: 12/14/24 21:39 Dose: 100 mls/hr Documented by: EVITA Magnesium Oxide (Magnesium Oxide 400 Mg Tab) 400 mg PO ONCE STA Stop: 12/14/24 21:31 Last Admin: 12/14/24 21:39 Dose: 400 mg Documented by: EVITA Magnesium Oxide (Magnesium Oxide 400 Mg Tab) 400 mg PO ONCE STA Stop: 12/14/24 21:31 Last Admin: 12/14/24 21:47 Dose: 400 mg Documented by: EVITA Morphine Sulfate (Morphine Sulfate 4 Mg/Ml Syringe) 4 mg IVP ONCE STA Stop: 12/14/24 21:15 Last Admin: 12/14/24 21:18 Dose: 4 mg Documented by: EVITA Ondansetron HCl (Ondansetron 4 Mg/2 Ml Vial) 4 mg IVP ONCE STA Stop: 12/14/24 21:15 Last Admin: 12/14/24 21:18 Dose: 4 mg Documented by: EVITA Objective - Vital Signs Vital signs: Vital Signs Temp 98.0 F 12/16/24 01:54 Pulse 85 12/16/24 01:54 Resp 16 12/16/24 01:54 BP 157/78 12/16/24 01:54 Pulse Ox 96 12/16/24 01:54 FiO2 Intake & Output 12/15/24 12/16/24 12/16/24 18:59 06:59 18:59 Intake Total 310 1100 Balance 310 1100 Weight 83.007 kg 83.8 kg Intake: Intake, IV Titration 1100 Amount Sodium Chloride 0.9% 1, 900 000 ml @ 75 mls/hr IV . [id number] [facility] Rx#:[id number] metroNIDAZOLE-NS PMX 500 200 mg In Saline 1 100ml.bag @ 100 mls/hr IVPB Q8H [facility] Rx#:[id number] Blood Product 310 Rc As-1 Unit 310 [id number] Other: Voiding Method Toilet # Voids 1 - Exam GENERAL: The patient is alert and oriented x3, not in any acute distress. Well developed, well nourished. HEENT: Pupils are round and equally reacting to light. EOMI. No scleral icterus. No conjunctival pallor. Normocephalic, atraumatic. No pharyngeal erythema. No thyromegaly. CARDIOVASCULAR: S1 and S2 present. No murmurs, rubs, or gallops. PULMONARY: Chest is clear to auscultation, no wheezing , no crackles. ABDOMEN: Soft, nontender, nondistended, normoactive bowel sounds. No palpable organomegaly. MUSCULOSKELETAL: No joint swelling or deformity. EXTREMITIES: No cyanosis, clubbing, or pedal edema. NEUROLOGICAL: Gross neurological examination did not reveal any focal deficits. SKIN: No rashes. no petechiae. - Labs CBC & Chem 7: 12/16/24 07:24 12/16/24 07:24 Labs: Abnormal Lab Results - Last 24 Hours (Table) 12/15/24 12/15/24 12/16/24 Range/Units 10:32 21:12 07:24 WBC 3.62 L (4.50-10.00) 10*3/uL RBC 3.41 L 3.09 L (4.10-5.20) 10*6/uL Hgb 9.8 L D 8.8 L (12.0-15.0) g/dL Hct 29.1 L 26.5 L (37.2-46.3) % Neutrophils # 1.49 L (1.80-7.70) 10*3/uL Chloride (98-107) mmol/L Glucose (74-99) mg/dL Crossmatch See Detail 12/16/24 Range/Units 07:24 WBC (4.50-10.00) 10*3/uL RBC (4.10-5.20) 10*6/uL Hgb (12.0-15.0) g/dL Hct (37.2-46.3) % Neutrophils # (1.80-7.70) 10*3/uL Chloride 114 H (98-107) mmol/L Glucose 100 H (74-99) mg/dL Crossmatch
[2024-12-16] MEDS: ONDANSETRON 4 MG/2 ML VIAL IVP PRN (12:04)
--- NOTE | 2024-12-16 14:26 | P.PN ---
Subjective Progress Note Date: 12/16/24 SURGICAL PROGRESS NOTE CHIEF COMPLAINT: GI bleed HISTORY OF PRESENT ILLNESS: Patient has had no further bleeding from her rectum. Tagged RBC was negative. Last colonoscopy is May 2024 with diverticulosis, polyps and hemorrhoids. Hemoglobin did drop from 9.8-8.8. Nursing staff she reports this afternoon she did have 1 episode of emesis which was watery brownish color. Patient is requesting to eat. She denies any abdominal pain. Patient's status post 1 unit of blood PHYSICAL EXAM: VITAL SIGNS: Reviewed. GENERAL: Well-developed in no acute distress. Eyes ABDOMEN: Soft. Nondistended. Nontender. NEUROLOGIC: Alert and oriented. Cranial nerves II through XII grossly intact. ASSESSMENT: 1. GI bleed likely due to diverticulitis and Plavix PLAN: - Advance diet to clear liquids - Continue to monitor hemoglobin - Continue to monitor for any signs or symptoms of bleeding - Continue to hold Plavix - Continue antibiotics [facility] note has been reviewed by physician. Signing provider agrees with the documented findings, assessment, and plan of care. Objective - Vital Signs Vital signs: Vital Signs Temp 98.5 F 12/16/24 11:40 Pulse 88 12/16/24 11:40 Resp 20 12/16/24 11:40 BP 165/82 12/16/24 11:40 Pulse Ox 96 12/16/24 11:40 FiO2 Intake & Output 12/15/24 12/16/24 12/16/24 18:59 06:59 18:59 Intake Total 310 1100 Balance 310 1100 Weight 83.007 kg 83.8 kg Intake: Intake, IV Titration 1100 Amount Sodium Chloride 0.9% 1, 900 000 ml @ 75 mls/hr IV . [id number] [facility] Rx#:[id number] metroNIDAZOLE-NS PMX 500 200 mg In Saline 1 100ml.bag @ 100 mls/hr IVPB Q8H [facility] Rx#:[id number] Blood Product 310 Rc As-1 Unit 310 [id number] Other: Voiding Method Toilet Toilet # Voids 1 - Labs CBC & Chem 7: 12/16/24 07:24 12/16/24 07:24 Labs: Abnormal Lab Results - Last 24 Hours (Table) 12/15/24 12/16/24 12/16/24 Range/Units 21:12 07:24 07:24 WBC 3.62 L (4.50-10.00) 10*3/uL RBC 3.41 L 3.09 L (4.10-5.20) 10*6/uL Hgb 9.8 L D 8.8 L (12.0-15.0) g/dL Hct 29.1 L 26.5 L (37.2-46.3) % Neutrophils # 1.49 L (1.80-7.70) 10*3/uL Chloride 114 H (98-107) mmol/L Glucose 100 H (74-99) mg/dL
[2024-12-16] MEDS: Evolocumab [Repatha Sureclick] 140 MG/ML SQ SCH (15:21)
[2024-12-16] MEDS ORDERED: NON FORMULARY DRUG (Ropinirole Hcl [Requip] 0.5 MG Tablet) PO SCH (21:00)
[2024-12-17 07:35] LABS: Basophils # (A) 0.02 10*3/uL (0.00-0.10); Basophils % (A) 0.6 %; Eosinophils # (A) 0.12 10*3/uL (0.04-0.35); Eosinophils % (A) 3.5 %; HCT 25.4 % (37.2-46.3); HGB 8.3 g/dL (12.0-15.0); Lymphocytes # (A) 1.48 10*3/uL (0.90-5.00); Lymphocytes % (A) 43.5 %; MCH 28.2 pg (27.0-32.0); MCHC 32.7 g/dL (32.0-37.0); MCV 86.4 fL (80.0-97.0); Monocytes # (A) 0.22 10*3/uL (0.20-1.00); Monocytes % (A) 6.5 %; Neutrophils # (A) 1.55 10*3/uL (1.80-7.70); Neutrophils % (A) 45.6 %; Platelet Count 179 10*3/uL (140-440); RBC 2.94 10*6/uL (4.10-5.20); RDW 14.6 % (11.5-14.5)
[2024-12-17 07:53] LABS: African American GFR (CKD) >90 (>60 ml/min/1.73 sqM); Anion Gap 4 mmol/L; Blood Urea Nitrogen 6 mg/dL (7-17); Calcium 8.8 mg/dL (8.4-10.2); Carbon Dioxide 26 mmol/L (22-30); Chloride 111 mmol/L (98-107); Glucose 99 mg/dL (74-99); Non-African American GFR(CKD) 85 (>60 ml/min/1.73 sqM); Potassium 3.5 mmol/L (3.5-5.1); Sodium 141 mmol/L (137-145)
[2024-12-17] MEDS: FENOFIBRATE 160 MG TAB PO SCH (08:17)
[2024-12-17] MEDS: DESVENLAFAXINE SUCCINATE 50 MG TAB.ER.24H PO SCH (08:17)
[2024-12-17] MEDS: OXYBUTYNIN 10 MG TAB.ER.24 PO SCH (08:17)
--- NOTE | 2024-12-17 09:18 | P.PN ---
Subjective This is a pleasant 79 years old female with past medical history of multiple medical problems as below including history of stroke about 1 year ago and she is on Plavix. Patient presents because of abdominal pain and bleeding Via rectum As per patient it started yesterday and she has almost 10 times bleeding per rectum This was associated with abdominal pain in the upper abdomen pain about 9/10 of 1 day duration felt like something compressing. It is in the middle of the abdomen and nonradiating. No vomiting She is also have some exertional dyspnea most likely secondary to anemia but no chest pain or dyspnea at rest or orthopnea No urinary complaint she has mild headache but no dizziness. No weakness or numbness. She takes Plavix because she had a small stroke 1 to 2 years ago with some residual right eye vision problem or right arm weakness Vitals as stable and afebrile Hemoglobin is dropping 12.6, 10.1 and 8.2 this morning. Surgery team ordered units of blood Creatinine 0.9 up to 1.1. Rest of exams and labs including BMP LFT INR troponin were negative CT of the abdomen and pelvis showing colonic diverticulosis with acute di verticulitis distal and transverse colon. Also there is fluid in the colon which could be colitis or products of diarrhea but also could be from bleeding. 12/16 Patient lying in bed with little discomfort in her abdomen rather than pain No dysuria no bowel movement since admission. Blood pressure stable. Hemoglobin slightly going down to 8.8 Nuclear GI bleeding scan was negative for active bleeding Patient is on IV Protonix and ceftriaxone and Flagyl Creatinine 1.1 Monitor hemoglobin and creatinine. Plavix on hold 12/17 Patient still with GI symptoms yesterday started on liquid diet and she started vomiting overnight almost 4 times which is stopped now She has some abdominal pain and tenderness and not passing gas or bowel movement Will check with surgery team if she needs NG tube placement No more bleeding per rectum Plavix remains on hold Remains also on ceftriaxone and Flagyl for colitis and diverticulitis Review of systems CONSTITUTIONAL: No fever, no malaise, no fatigue. HEENT: No recent visual problems or hearing problems. Denied any sore throat. HEMATOLOGICAL: Denies any bleeding or petechiae. GENITOURINARY: Denies any burning micturition, frequency, or urgency. MUSCULOSKELETAL/RHEUMATOLOGICAL: Denies any joint pain, swelling, or any muscle pain. ENDOCRINE: Denies any polyuria or polydipsia. Active Medications Generic Name Dose Route Start Last Admin Trade Name Freq PRN Reason Stop Dose Admin Hydrocodone Bitart/Acetaminophen 1 each 12/16/24 11:47 Hydrocodone/Apap 7.5-325mg 1 Each Tab PO Q6HR PRN Pain 1-6 Desvenlafaxine Succinate 100 mg 12/17/24 09:00 12/17/24 08:17 Desvenlafaxine Succinate 50 Mg Tab.Er.24h PO Not Given DAILY [facility] Fenofibrate 160 mg 12/17/24 09:00 12/17/24 08:17 Fenofibrate 160 Mg Tab PO Not Given DAILY [facility] Gabapentin 300 mg 12/15/24 01:15 12/17/24 08:17 Gabapentin 300 Mg Cap PO Not Given BID [facility] Sodium Chloride 1,000 mls @ 75 mls/hr 12/14/24 22:30 12/17/24 04:42 Saline 0.9% IV Not Given .[id number] [facility] Metronidazole 500 mg/ IV 100 mls @ 100 mls/hr 12/15/24 12:00 12/17/24 05:47 Solution IVPB 100 mls/hr Q8H [facility] Administration Protocol Ceftriaxone Sodium 1 gm/ 50 mls @ 100 mls/hr 12/15/24 12:00 12/16/24 11:22 Sodium Chloride IVPB 100 mls/hr Q24H [facility] Administration Protocol Morphine Sulfate 4 mg 12/14/24 22:26 12/16/24 22:48 Morphine Sulfate 4 Mg/Ml Syringe IV 4 mg Q4HR PRN Administration Severe Pain (Scale 7 to 10) Naloxone HCl 0.2 mg 12/14/24 22:26 Naloxone 0.4 Mg/Ml 1 Ml Vial IV Q2M PRN Opioid Reversal Evolocumab [Repatha 1 each 12/16/24 12:00 12/16/24 15:21 Sureclick] 140 Mg/Ml SQ Not Given Q14D [facility] Ondansetron HCl 4 mg 12/14/24 22:26 12/17/24 05:47 Ondansetron 4 Mg/2 Ml Vial IVP 4 mg Q8HR PRN Administration Nausea And Vomiting Oxybutynin Chloride 10 mg 12/17/24 09:00 12/17/24 08:17 Oxybutynin 10 Mg Tab.Er.24 PO Not Given DAILY [facility] Pantoprazole Sodium 40 mg 12/14/24 22:30 12/17/24 08:10 Pantoprazole 40 Mg/10 Ml Vial IV 40 mg DAILY [facility] Administration Ropinirole HCl 1 mg 12/15/24 01:09 12/16/24 20:53 Ropinirole Hcl 1 Mg Tab PO 1 mg HS [facility] Administration Objective - Vital Signs Vital signs: Vital Signs Temp 98.1 F 12/17/24 08:14 Pulse 81 12/17/24 08:14 Resp 17 12/17/24 08:14 BP 158/64 12/17/24 08:14 Pulse Ox 96 12/17/24 08:14 FiO2 Intake & Output 12/16/24 12/17/24 12/17/24 18:59 06:59 18:59 Intake Total 900 610 Output Total 3 Balance 900 607 Weight 87 kg Intake: IV 10 Invasive Line 2 10 Intake, IV Titration 900 Amount Sodium Chloride 0.9% 1, 750 000 ml @ 75 mls/hr IV . [id number] [facility] Rx#:[id number] cefTRIAXone 1 gm In 50 Sodium Chloride 0.9% 50 ml @ 100 mls/hr IVPB Q24H [facility] Rx#:[id number] metroNIDAZOLE-NS PMX 500 100 mg In Saline 1 100ml.bag @ 100 mls/hr IVPB Q8H [facility] Rx#:[id number] Oral 600 Output: Urine 3 Other: Voiding Method Toilet Toilet # Voids 4 1 - Exam GENERAL: The patient is alert and oriented x3, not in any acute distress. Well developed, well nourished. HEENT: Pupils are round and equally reacting to light. EOMI. No scleral icterus. No conjunctival pallor. Normocephalic, atraumatic. No pharyngeal erythema. No thyromegaly. CARDIOVASCULAR: S1 and S2 present. No murmurs, rubs, or gallops. PULMONARY: Chest is clear to auscultation, no wheezing , no crackles. ABDOMEN: Soft, nontender, nondistended, normoactive bowel sounds. No palpable organomegaly. MUSCULOSKELETAL: No joint swelling or deformity. EXTREMITIES: No cyanosis, clubbing, or pedal edema. NEUROLOGICAL: Gross neurological examination did not reveal any focal deficits. SKIN: No rashes. no petechiae. - Labs CBC & Chem 7: 12/17/24 07:01 12/17/24 07:01 Labs: Abnormal Lab Results - Last 24 Hours (Table) 12/17/24 12/17/24 Range/Units 07:01 07:01 WBC 3.40 L (4.50-10.00) 10*3/uL RBC 2.94 L (4.10-5.20) 10*6/uL Hgb 8.3 L (12.0-15.0) g/dL Hct 25.4 L (37.2-46.3) % Neutrophils # 1.55 L (1.80-7.70) 10*3/uL Chloride 111 H (98-107) mmol/L BUN 6 L (7-17) mg/dL Assessment and Plan Assessment: Acute bleeding per rectum with abdominal pain Possible acute colitis and possible colon transverse diverticulitis Acute blood loss anemia secondary to above status post units of blood transfusion 05/17 History of stroke with residual right vision deficiency, mild and right arm weakness, mild. On Plavix at home which is put on hold Fibromyalgia Hypertension Hyperlipidemia Osteoarthritis History of supraventricular tachycardia Bilateral leg neuropathy Degenerative disc disease Plan: Rayo keep monitoring Continue with pain management Continue with IV hydration Continue with Protonix start ceftriaxone and Flagyl for possible diverticulitis versus colitis Surgery team on the case and they requested nuclear scan for bleeding which is pending Monitor hemoglobin and creatinine and vitals Further recommendation based on the clinical course GI prophylaxis Protonix DVT prophylaxis: Mechanical because of her bleeding problem Prognosis guarded
[2024-12-17] MEDS ORDERED: PROPOFOL 10 MG/ML 20 ML VIAL IV ONE (12:39)
[2024-12-17] MEDS: IV FLUID CONTINUATION 1,000 ML IV ONE (12:40)
--- NOTE | 2024-12-17 12:57 | P.OP ---
Date of Procedure: 12/17/24 Preoperative Diagnosis: Epigastric pain GI bleed Postoperative Diagnosis: Gastritis of cardia of stomach No active bleeding Procedure(s) Performed: EGD Anesthesia: MAC Surgeon: Bonifacio Squires Pathology: other (Cardia) Condition: stable Disposition: PACU Description of Procedure: The patient was placed on the endoscopy table in the lateral position. She received IV sedation. The gastric was placed oropharynx passed in the esophagus into the stomach. Scope was then placed through the pylorus. The first second portion duodenum appeared normal. Scope was then brought back to the antrum this appeared normal. Scope was retroflexed and the cardia of the stomach there appeared inflammation. There was no active bleeding. However the cardia was inflamed. A biopsy was performed. The GE junction was at 38 cm. There appeared to be a small hiatal hernia. The pr distal esophagus appeared. The proximal esophagus appeared normal. Scope withdrawn the patient.
--- NOTE | 2024-12-17 14:25 | P.PN ---
Subjective Progress Note Date: 12/17/24 SURGICAL PROGRESS NOTE CHIEF COMPLAINT: GI bleed HISTORY OF PRESENT ILLNESS: Patient did pass black bloody stool this morning. She did have emesis last night with no blood in it. Hemoglobin went from 8.8- 8.3. EGD completed this morning due to the black stools. EGD reported no active bleeding. Gastritis of cardia of stomach. PHYSICAL EXAM: VITAL SIGNS: Reviewed. GENERAL: Well-developed in no acute distress. Eyes ABDOMEN: Soft. Nondistended. Nontender. NEUROLOGIC: Alert and oriented. Cranial nerves II through XII grossly intact. ASSESSMENT: 1. GI bleed likely due to diverticulitis and Plavix 2. Melanotic stools status post EGD revealing gastritis of cardia of stomach. No active bleeding PLAN: - Transfuse 1 unit of blood for active bleeding - keep NPO - Continue to monitor hemoglobin - Continue to monitor for any signs or symptoms of bleeding - Continue to hold Plavix - Continue antibiotics - Increase PPI to BID - Continue IV fluids Physician Golf Technician note has been reviewed by physician. Signing provider agrees with the documented findings, assessment, and plan of care. Objective - Vital Signs Vital signs: Vital Signs Temp 98.1 F 12/17/24 11:46 Pulse 82 12/17/24 11:46 Resp 17 12/17/24 11:46 BP 159/74 12/17/24 11:46 Pulse Ox 96 12/17/24 11:46 FiO2 Intake & Output 12/16/24 12/17/24 12/17/24 18:59 06:59 18:59 Intake Total 900 610 140 Output Total 3 Balance 900 607 140 Weight 87 kg Intake: IV 10 140 Invasive Line 2 10 20 Invasive Line 3 20 Intake, IV Titration 900 Amount Sodium Chloride 0.9% 1, 750 000 ml @ 75 mls/hr IV . [id number] [facility] Rx#:[id number] cefTRIAXone 1 gm In 50 Sodium Chloride 0.9% 50 ml @ 100 mls/hr IVPB Q24H [facility] Rx#:[id number] metroNIDAZOLE-NS PMX 500 100 mg In Saline 1 100ml.bag @ 100 mls/hr IVPB Q8H [facility] Rx#:[id number] Oral 600 Output: Urine 3 Other: Voiding Method Toilet Toilet Toilet # Voids 4 1 - Labs CBC & Chem 7: 12/17/24 07:01 12/17/24 07:01 Labs: Abnormal Lab Results - Last 24 Hours (Table) 12/17/24 12/17/24 Range/Units 07:01 07:01 WBC 3.40 L (4.50-10.00) 10*3/uL RBC 2.94 L (4.10-5.20) 10*6/uL Hgb 8.3 L (12.0-15.0) g/dL Hct 25.4 L (37.2-46.3) % Neutrophils # 1.55 L (1.80-7.70) 10*3/uL Chloride 111 H (98-107) mmol/L BUN 6 L (7-17) mg/dL
[2024-12-17] MEDS: hydrALAZINE HCL 20 MG/ML 1 ML VIAL IVP PRN (15:44)
[2024-12-17] MEDS: PANTOPRAZOLE 40 MG/10 ML VIAL IV SCH (20:19)
[2024-12-18] MEDS: ONDANSETRON 4 MG/2 ML VIAL IVP PRN (00:30)
[2024-12-18] MEDS: METOCLOPRAMIDE 5 MG/ML 2 ML VIAL IVP STA (01:04)
[2024-12-18] MEDS: HYDROcodone/APAP 7.5-325MG 1 EACH TAB PO PRN (03:29)
[2024-12-18 07:26] LABS: Basophils # (A) 0.05 10*3/uL (0.00-0.10); Basophils % (A) 0.9 %; Eosinophils # (A) 0.17 10*3/uL (0.04-0.35); Eosinophils % (A) 3.2 %; HCT 36.5 % (37.2-46.3); Immature Platelet Fraction 5.6 % (1.1-6.1); Lymphocytes # (A) 1.69 10*3/uL (0.90-5.00); MCH 29.3 pg (27.0-32.0); MCHC 33.4 g/dL (32.0-37.0); MCV 87.5 fL (80.0-97.0); Mean Platelet Volume 10.9 fL (9.5-12.2); Monocytes # (A) 0.32 10*3/uL (0.20-1.00); Monocytes % (A) 6.1 %; Neutrophils # (A) 3.02 10*3/uL (1.80-7.70); Neutrophils % (A) 57.2 %; RBC 4.17 10*6/uL (4.10-5.20); RDW 14.8 % (11.5-14.5); WBC 5.28 10*3/uL (4.50-10.00)
[2024-12-18 07:35] LABS: HGB 12.2 g/dL (12.0-15.0)
[2024-12-18 09:22] LABS: Platelet Count 193 10*3/uL (140-440); RBC Morphology Normal
[2024-12-18] MEDS: METOCLOPRAMIDE 5 MG/ML 2 ML VIAL IVP PRN (09:58)
--- NOTE | 2024-12-18 10:33 | P.PN ---
Subjective This is a pleasant 79 years old female with past medical history of multiple medical problems as below including history of stroke about 1 year ago and she is on Plavix. Patient presents because of abdominal pain and bleeding Via rectum As per patient it started yesterday and she has almost 10 times bleeding per rectum This was associated with abdominal pain in the upper abdomen pain about 9/10 of 1 day duration felt like something compressing. It is in the middle of the abdomen and nonradiating. No vomiting She is also have some exertional dyspnea most likely secondary to anemia but no chest pain or dyspnea at rest or orthopnea No urinary complaint she has mild headache but no dizziness. No weakness or numbness. She takes Plavix because she had a small stroke 1 to 2 years ago with some residual right eye vision problem or right arm weakness Vitals as stable and afebrile Hemoglobin is dropping 12.6, 10.1 and 8.2 this morning. Surgery team ordered units of blood Creatinine 0.9 up to 1.1. Rest of exams and labs including BMP LFT INR troponin were negative CT of the abdomen and pelvis showing colonic diverticulosis with acute di verticulitis distal and transverse colon. Also there is fluid in the colon which could be colitis or products of diarrhea but also could be from bleeding. 12/16 Patient lying in bed with little discomfort in her abdomen rather than pain No dysuria no bowel movement since admission. Blood pressure stable. Hemoglobin slightly going down to 8.8 Nuclear GI bleeding scan was negative for active bleeding Patient is on IV Protonix and ceftriaxone and Flagyl Creatinine 1.1 Monitor hemoglobin and creatinine. Plavix on hold 12/17 Patient still with GI symptoms yesterday started on liquid diet and she started vomiting overnight almost 4 times which is stopped now She has some abdominal pain and tenderness and not passing gas or bowel movement Will check with surgery team if she needs NG tube placement No more bleeding per rectum Plavix remains on hold Remains also on ceftriaxone and Flagyl for colitis and diverticulitis 12/18 Patient had EGD yesterday showing gastritis of the cardia of the stomach with no evidence of active bleeding Earlier she had nuclear scan showing also on active bleeding However patient reports 5 episodes of bleeding overnight and yesterday. She got 1 unit of blood transfusion this morning her hemoglobin is improved up to 12.2. Her abdominal pain improved down to 5-6/10 which is not bad as per patient Hold Plavix continue antibiotics. She is on normal saline 75 mL/h Objective - Vital Signs Vital signs: Vital Signs Temp 98 F 12/18/24 08:33 Pulse 64 12/18/24 08:33 Resp 17 12/18/24 08:33 BP 166/74 12/18/24 08:33 Pulse Ox 94 L 12/18/24 08:33 FiO2 Intake & Output 12/17/24 12/18/24 12/18/24 18:59 06:59 18:59 Intake Total 450 40 20 Balance 450 40 20 Weight 86.8 kg Intake: IV 140 40 20 Invasive Line 2 20 20 10 Invasive Line 3 20 20 10 Blood Product 310 Rc As-1 Unit 310 [id number] Other: Voiding Method Toilet Toilet Toilet # Voids 1 2 # Bowel Movements 2 - Exam GENERAL: The patient is alert and oriented x3, not in any acute distress. Well developed, well nourished. HEENT: Pupils are round and equally reacting to light. EOMI. No scleral icterus. No conjunctival pallor. Normocephalic, atraumatic. No pharyngeal erythema. No thyromegaly. CARDIOVASCULAR: S1 and S2 present. No murmurs, rubs, or gallops. PULMONARY: Chest is clear to auscultation, no wheezing , no crackles. ABDOMEN: Soft, nontender, nondistended, normoactive bowel sounds. No palpable organomegaly. MUSCULOSKELETAL: No joint swelling or deformity. EXTREMITIES: No cyanosis, clubbing, or pedal edema. NEUROLOGICAL: Gross neurological examination did not reveal any focal deficits. SKIN: No rashes. no petechiae. - Labs CBC & Chem 7: 12/18/24 06:53 12/17/24 07:01 Labs: Abnormal Lab Results - Last 24 Hours (Table) 12/15/24 12/18/24 Range/Units 10:32 06:53 Hct 36.5 L (37.2-46.3) % Crossmatch See Detail Assessment and Plan Assessment: Acute bleeding per rectum with abdominal pain. Status post EGD on 12/17 showing gastritis of the cardia of stomach. No active bleeding Acute colitis and possible colon transverse diverticulitis Acute blood loss anemia secondary to above status post units of blood transfusion 12/15 and 12/17 History of stroke with residual right vision deficiency, mild and right arm weakness, mild. On Plavix at home which is put on hold Fibromyalgia Hypertension Hyperlipidemia Osteoarthritis History of supraventricular tachycardia Bilateral leg neuropathy Degenerative disc disease Plan: Continue keep monitoring Continue with pain management Continue with IV hydration Continue with Protonix start ceftriaxone and Flagyl for possible diverticulitis versus colitis Surgery team on the case and they following closely Monitor hemoglobin and creatinine and vitals Further recommendation based on the clinical course GI prophylaxis Protonix DVT prophylaxis: Mechanical because of her bleeding problem Prognosis guarded
[2024-12-18] MEDS: IOPAMIDOL CONTRAST (ORAL USE) VIAL PO PRN (11:09)
--- NOTE | 2024-12-18 13:05 | CT ---
EXAMINATION TYPE: CT abdomen pelvis w con DATE OF EXAM: 12/18/2024 12:47 PM COMPARISON: 12/14/2024 CLINICAL INDICATION: Female, 79 years old with history of vomiting, abdominal pain; vomiting, abdomin al pain TECHNIQUE: Axial CT abdomen pelvis with contrast. Delayed images through the kidneys and coronal/sag ittal reconstructions performed. Contrast used: 100 ml mL of Isovue 300 with IV Contrast, (none if empty) Oral contrast used: with Oral Contrast (none if empty) CT DLP: 1184.4 mGycm, Automated exposure control for dose reduction was used. FINDINGS: LOWER CHEST: Unremarkable ABDOMEN LIVER: Borderline enlarged measuring 17.4 cm. There may be some underlying fatty infiltration. GALLBLADDER AND BILE DUCTS: Prominent bile ducts similar likely due to postcholecystectomy status.. PANCREAS: Unremarkable. SPLEEN: Borderline enlarged at 13.4 cm within inferior splenule. ADRENAL GLANDS: Unremarkable. KIDNEYS AND URETERS: Tiny 7 mm cortical cyst anterior upper pole left kidney. There is a vague area o f cortical hypoechoic echogenicity measuring 1.2 cm seen on the delayed scan, possible tiny complicat ed cyst. Recommend follow-up CT in 6 months to exclude the possibility of a small early mass. PELVIS BLADDER: Not well seen due to metal artifact. Numerous pelvic phleboliths. No definite abnormal fluid collection in the pelvis or pelvic lymphadenopathy. REPRODUCTIVE: Uterus and ovaries not visualized though prominent artifact from the patient's total ri ght hip arthroplasty limits visualization of pelvic structures. Scattered surgical clips are present in the pelvis. ABDOMEN & PELVIS STOMACH AND BOWEL: There is a partially visualized hiatal hernia possibly moderate in size. In additi on, there are some surgical clips at and just below the GE junction. Possibly relating to prior Nisse n fundoplication. This should be correlated clinically as to the possibility for recurrent hiatal her ellen or slipped Destin wrap. No evidence of bowel obstruction. There is some liquid stool scattered th roughout the colon. Generalized colonic diverticulosis. No pericolonic inflammatory change. Small 2.1 cm diverticulum of the third portion of the duodenum projecting superiorly PERITONEUM/RETROPERITONEUM: No evidence of pneumoperitoneum or free fluid. VASCULATURE: No evidence of aortic aneurysm. MUSCULOSKELETAL: No acute osseous abnormalities LYMPH NODES: No gross evidence for lymphadenopathy. SOFT TISSUE/ABDOMINAL WALL: Redemonstrated ventral abdominal wall mesh repair. Thickening along the m esh likely chronic scarring. IMPRESSION: 1. Fluid scattered throughout the colon. Correlate for any diarrheal state. 2. Generalized colonic diverticulosis without evidence for acute diverticulitis. 3. Vague hypoechoic area within the left kidney midpole measuring 1.2 cm on delayed scan. Possible ti ny debris filled cyst. Recommend 6 month follow-up contrast enhanced CT to exclude the possibility of a small early solid mass. 4. Partially visualized hiatal hernia, this may be moderate in size. There are some surgical clips at the GE junction and just below. Query as to prior surgery. If there is prior hernia repair, consider recurrent hiatal hernia or slipped Destin wrap. Refer to the patient back to their surgeon if sympto matic. 5. Similar postsurgical change of ventral abdominal wall mesh repair. [facility], , 12/18/2024 1:02 PM
--- NOTE | 2024-12-18 14:11 | P.PN ---
Subjective Progress Note Date: 12/18/24 SURGICAL PROGRESS NOTE CHIEF COMPLAINT: GI bleed HISTORY OF PRESENT ILLNESS: Patient with nausea and vomiting through the night and no more bloody bowel movements overnight. Vital stable. Hemoglobin did go up from 8.3-12.2 after 1 unit of blood. A CT scan abdomen pelvis was ordered this morning patient was unable to tolerate oral contrast. CAT scan completed with IV contrast. Result reports fluid scattered throughout the colon. Correlate for diarrheal state. Generalized colonic diverticulosis without evidence for acute diverticulitis. Possible cyst in the left kidney. Partially visualized hiatal hernia this may be moderate in size. PHYSICAL EXAM: VITAL SIGNS: Reviewed. GENERAL: Well-developed in no acute distress. Eyes ABDOMEN: Soft. Nondistended. Nontender. NEUROLOGIC: Alert and oriented. Cranial nerves II through XII grossly intact. ASSESSMENT: 1. GI bleed likely due to diverticulitis and Plavix. CT scan reviewed with Dr. Squires. Acute diverticulitis has improved 2. Melanotic stools status post EGD revealing gastritis of cardia of stomach. No active bleeding PLAN: -Continue to monitor -Continue antibiotics -Keep patient n.p.o. except for ice chips -Continue to hold Plavix -Continue antiemetics - Continue to monitor hemoglobin - Continue to monitor for any signs or symptoms of bleeding - Continue to hold Plavix - Continue PPI Physician Rfp Writer note has been reviewed by physician. Signing provider agrees with the documented findings, assessment, and plan of care. Objective - Vital Signs Vital signs: Vital Signs Temp 98 F 12/18/24 11:12 Pulse 98 12/18/24 11:12 Resp 17 12/18/24 11:12 BP 175/82 12/18/24 11:12 Pulse Ox 94 L 12/18/24 11:12 FiO2 Intake & Output 12/17/24 12/18/24 12/18/24 18:59 06:59 18:59 Intake Total 450 40 20 Balance 450 40 20 Weight 86.8 kg Intake: IV 140 40 20 Invasive Line 2 20 20 10 Invasive Line 3 20 20 10 Blood Product 310 Rc As-1 Unit 310 [id number] Other: Voiding Method Toilet Toilet Toilet # Voids 1 2 # Bowel Movements 2 - Labs CBC & Chem 7: 12/18/24 06:53 12/17/24 07:01 Labs: Abnormal Lab Results - Last 24 Hours (Table) 12/15/24 12/18/24 Range/Units 10:32 06:53 Hct 36.5 L (37.2-46.3) % Crossmatch See Detail
[2024-12-19 08:10] LABS: HCT 30.6 % (37.2-46.3); HGB 10.1 g/dL (12.0-15.0); MCH 28.6 pg (27.0-32.0); MCV 86.7 fL (80.0-97.0); Mean Platelet Volume 9.8 fL (9.5-12.2); Platelet Count 217 10*3/uL (140-440); RBC 3.53 10*6/uL (4.10-5.20); RDW 15.3 % (11.5-14.5); WBC 5.01 10*3/uL (4.50-10.00)
[2024-12-19 08:30] LABS: African American GFR (CKD) >90 (>60 ml/min/1.73 sqM); Anion Gap 10 mmol/L; Blood Urea Nitrogen 5 mg/dL (7-17); Carbon Dioxide 21 mmol/L (22-30); Chloride 110 mmol/L (98-107); Glucose 101 mg/dL (74-99); Non-African American GFR(CKD) >90 (>60 ml/min/1.73 sqM); Potassium 3.3 mmol/L (3.5-5.1); Sodium 141 mmol/L (137-145)
[2024-12-19] MEDS ORDERED: Potassium Replacement Protocol 1 EACH MISC MISCELLANE PRN (10:42)
[2024-12-19 11:41] VITALS: BMI 33.8
[2024-12-19] MEDS: POTASSIUM CHLORIDE ER 20 MEQ TAB.ER PO SCH (12:15)
[2024-12-19] MEDS ORDERED: Magnesium Replacement Protocol 1 EACH MISC MISCELLANE PRN ×2 (12:25→15:24)
--- NOTE | 2024-12-19 13:24 | P.PN ---
Subjective Progress Note Date: 12/19/24 SURGICAL PROGRESS NOTE CHIEF COMPLAINT: GI bleed HISTORY OF PRESENT ILLNESS: Patient reports her nausea and vomiting has resolved. CAT scan completed with IV contrast. Result reports fluid scattered throughout the colon. Correlate for diarrheal state. Generalized colonic diverticulosis without evidence for acute diverticulitis. Possible cyst in the left kidney. Partially visualized hiatal hernia this may be moderate in size. Afebrile. Mildly tachycardic resolved. WBC 5.0 Hgb 12.2-10.1 potassium 3.3 magnesium 1.6 and being replaced PHYSICAL EXAM: VITAL SIGNS: Reviewed. GENERAL: Well-developed in no acute distress. Eyes ABDOMEN: Soft. Nondistended. Nontender. NEUROLOGIC: Alert and oriented. Cranial nerves II through XII grossly intact. ASSESSMENT: 1. GI bleed likely due to diverticulitis and Plavix. CT scan reviewed with Dr. Squires. Acute diverticulitis has improved 2. Melanotic stools status post EGD revealing gastritis of cardia of stomach. No active bleeding PLAN: -Advance diet to regular -Continue antibiotics -Continue to monitor for any signs or symptoms of bleeding. -Continue to monitor hemoglobin -Continue PPI -Medicine service replacing electrolytes Physician Relief Pilot note has been reviewed by physician. Signing provider agrees with the documented findings, assessment, and plan of care. Objective - Vital Signs Vital signs: Vital Signs Temp 98.3 F 12/18/24 19:57 Pulse 96 12/19/24 12:00 Resp 18 12/19/24 12:00 BP 164/77 12/19/24 12:00 Pulse Ox 96 12/19/24 12:00 FiO2 Intake & Output 12/18/24 12/19/24 12/19/24 18:59 06:59 18:59 Intake Total 40 50 10 Balance 40 50 10 Weight 86.7 kg 86.7 kg Intake: IV 40 50 10 Invasive Line 2 20 20 Invasive Line 3 20 30 10 Other: Voiding Method Toilet Toilet Toilet # Voids 1 2 # Bowel Movements 1 1 - Labs CBC & Chem 7: 12/19/24 07:11 12/19/24 07:11 Labs: Abnormal Lab Results - Last 24 Hours (Table) 12/19/24 12/19/24 Range/Units 07:11 07:11 RBC 3.53 L (4.10-5.20) 10*6/uL Hgb 10.1 L (12.0-15.0) g/dL Hct 30.6 L (37.2-46.3) % Potassium 3.3 L (3.5-5.1) mmol/L Chloride 110 H (98-107) mmol/L Carbon Dioxide 21 L (22-30) mmol/L BUN 5 L (7-17) mg/dL Glucose 101 H (74-99) mg/dL
[2024-12-19] MEDS: MAGNESIUM SULFATE-D5W PMX 1 GM in DEXTROSE/WATER 1 100ML.BAG IVPB SCH (14:29)
[2024-12-19] MEDS: METOPROLOL SUCCINATE (ER) 100 MG TAB.ER.24H PO SCH (14:29)
[2024-12-19] MEDS: LOSARTAN 50 MG TAB PO SCH (14:29)
--- NOTE | 2024-12-19 15:27 | P.PN ---
Subjective This is a pleasant 79 years old female with past medical history of multiple medical problems as below including history of stroke about 1 year ago and she is on Plavix. Patient presents because of abdominal pain and bleeding Via rectum As per patient it started yesterday and she has almost 10 times bleeding per rectum This was associated with abdominal pain in the upper abdomen pain about 9/10 of 1 day duration felt like something compressing. It is in the middle of the abdomen and nonradiating. No vomiting She is also have some exertional dyspnea most likely secondary to anemia but no chest pain or dyspnea at rest or orthopnea No urinary complaint she has mild headache but no dizziness. No weakness or numbness. She takes Plavix because she had a small stroke 1 to 2 years ago with some residual right eye vision problem or right arm weakness Vitals as stable and afebrile Hemoglobin is dropping 12.6, 10.1 and 8.2 this morning. Surgery team ordered units of blood Creatinine 0.9 up to 1.1. Rest of exams and labs including BMP LFT INR troponin were negative CT of the abdomen and pelvis showing colonic diverticulosis with acute di verticulitis distal and transverse colon. Also there is fluid in the colon which could be colitis or products of diarrhea but also could be from bleeding. 12/16 Patient lying in bed with little discomfort in her abdomen rather than pain No dysuria no bowel movement since admission. Blood pressure stable. Hemoglobin slightly going down to 8.8 Nuclear GI bleeding scan was negative for active bleeding Patient is on IV Protonix and ceftriaxone and Flagyl Creatinine 1.1 Monitor hemoglobin and creatinine. Plavix on hold 12/17 Patient still with GI symptoms yesterday started on liquid diet and she started vomiting overnight almost 4 times which is stopped now She has some abdominal pain and tenderness and not passing gas or bowel movement Will check with surgery team if she needs NG tube placement No more bleeding per rectum Plavix remains on hold Remains also on ceftriaxone and Flagyl for colitis and diverticulitis 12/18 Patient had EGD yesterday showing gastritis of the cardia of the stomach with no evidence of active bleeding Earlier she had nuclear scan showing also on active bleeding However patient reports 5 episodes of bleeding overnight and yesterday. She got 1 unit of blood transfusion this morning her hemoglobin is improved up to 12.2. Her abdominal pain improved down to 5-6/10 which is not bad as per patient Hold Plavix continue antibiotics. She is on normal saline 75 mL/h 12/19 Patient diet advanced to regular diet Had 2 brown bowel movement this morning with results of blood and then when she wiped No vomiting since yesterday Creatinine back to normal, hemoglobin 10.1 She remains on IV Protonix She remains on ceftriaxone and Flagyl low level Electrolytes been replaced Objective - Vital Signs Vital signs: Vital Signs Temp 98.3 F 12/18/24 19:57 Pulse 96 12/19/24 12:00 Resp 18 12/19/24 12:00 BP 164/77 12/19/24 12:00 Pulse Ox 96 12/19/24 12:00 FiO2 Intake & Output 12/18/24 12/19/24 12/19/24 18:59 06:59 18:59 Intake Total 40 50 10 Balance 40 50 10 Weight 86.7 kg 86.7 kg Intake: IV 40 50 10 Invasive Line 2 20 20 Invasive Line 3 20 30 10 Other: Voiding Method Toilet Toilet Toilet # Voids 1 2 # Bowel Movements 1 1 - Exam GENERAL: The patient is alert and oriented x3, not in any acute distress. Well developed, well nourished. HEENT: Pupils are round and equally reacting to light. EOMI. No scleral icterus. No conjunctival pallor. Normocephalic, atraumatic. No pharyngeal erythema. No thyromegaly. CARDIOVASCULAR: S1 and S2 present. No murmurs, rubs, or gallops. PULMONARY: Chest is clear to auscultation, no wheezing , no crackles. ABDOMEN: Soft, nontender, nondistended, normoactive bowel sounds. No palpable organomegaly. MUSCULOSKELETAL: No joint swelling or deformity. EXTREMITIES: No cyanosis, clubbing, or pedal edema. NEUROLOGICAL: Gross neurological examination did not reveal any focal deficits. SKIN: No rashes. no petechiae. - Labs CBC & Chem 7: 12/19/24 07:11 12/19/24 07:11 Labs: Abnormal Lab Results - Last 24 Hours (Table) 12/19/24 12/19/24 Range/Units 07:11 07:11 RBC 3.53 L (4.10-5.20) 10*6/uL Hgb 10.1 L (12.0-15.0) g/dL Hct 30.6 L (37.2-46.3) % Potassium 3.3 L (3.5-5.1) mmol/L Chloride 110 H (98-107) mmol/L Carbon Dioxide 21 L (22-30) mmol/L BUN 5 L (7-17) mg/dL Glucose 101 H (74-99) mg/dL Assessment and Plan Assessment: Acute bleeding per rectum with abdominal pain. Status post EGD on 12/17 showing gastritis of the cardia of stomach. No active bleeding Acute colitis and possible colon transverse diverticulitis Acute blood loss anemia secondary to above status post units of blood transfusion 12/15 and 12/17 History of stroke with residual right vision deficiency, mild and right arm weakness, mild. On Plavix at home which is put on hold Fibromyalgia Hypertension Hyperlipidemia Osteoarthritis History of supraventricular tachycardia Bilateral leg neuropathy Degenerative disc disease Plan: Advance diet Continue with pain management Continue with IV hydration Continue with Protonix Continue t ceftriaxone and Flagyl for possible diverticulitis versus colitis Surgery team on the case and they following closely Monitor hemoglobin and creatinine and vitals Further recommendation based on the clinical course GI prophylaxis Protonix DVT prophylaxis: Mechanical because of her bleeding problem Prognosis guarded
[2024-12-19 18:20] LABS: Magnesium 2.2 mg/dL (1.6-2.3); Potassium 3.6 mmol/L (3.5-5.1)
[2024-12-19 20:08] LABS: Basophils # (A) 0.05 10*3/uL (0.00-0.10); Eosinophils # (A) 0.15 10*3/uL (0.04-0.35); Eosinophils % (A) 3.1 %; HCT 32.4 % (37.2-46.3); HGB 10.8 g/dL (12.0-15.0); Lymphocytes # (A) 1.01 10*3/uL (0.90-5.00); Lymphocytes % (A) 20.7 %; MCHC 33.3 g/dL (32.0-37.0); MCV 86.9 fL (80.0-97.0); Mean Platelet Volume 10.3 fL (9.5-12.2); Monocytes # (A) 0.39 10*3/uL (0.20-1.00); Neutrophils # (A) 3.24 10*3/uL (1.80-7.70); Neutrophils % (A) 66.6 %; Platelet Count 258 10*3/uL (140-440); RBC 3.73 10*6/uL (4.10-5.20); RDW 15.4 % (11.5-14.5); WBC 4.87 10*3/uL (4.50-10.00)
[2024-12-20 03:11] VITALS: RESP 18
[2024-12-20 06:44] LABS: HCT 29.7 % (37.2-46.3); HGB 9.8 g/dL (12.0-15.0); MCH 29.1 pg (27.0-32.0); MCV 88.1 fL (80.0-97.0); Mean Platelet Volume 10.5 fL (9.5-12.2); Platelet Count 213 10*3/uL (140-440); RBC 3.37 10*6/uL (4.10-5.20); RDW 15.6 % (11.5-14.5); WBC 3.98 10*3/uL (4.50-10.00)
[2024-12-20 11:30] VITALS: BP 143/75; PULSE 77; TEMP 98.5
--- NOTE | 2024-12-20 12:52 | P.PN ---
Subjective Progress Note Date: 12/20/24 SURGICAL PROGRESS NOTE CHIEF COMPLAINT: GI bleed HISTORY OF PRESENT ILLNESS: Patient reports she is feeling better. She is tolerating diet. She is status post EGD that had reported gastritis of cardia o f stomach. No active bleeding. She denies any abdominal pain. She has had no further bleeding. Hemoglobin down from 10.8 to 9.8 Patient seen and examined with Dr. Squires PHYSICAL EXAM: VITAL SIGNS: Reviewed. GENERAL: Well-developed in no acute distress. Eyes ABDOMEN: Soft. Nondistended. Nontender. NEUROLOGIC: Alert and oriented. Cranial nerves II through XII grossly intact. ASSESSMENT: 1. GI bleed likely due to diverticulitis and Plavix. CT scan reviewed with Dr. Squires. Acute diverticulitis has improved 2. Melanotic stools status post EGD revealing gastritis of cardia of stomach. No active bleeding PLAN: -Patient can be discharged from surgical standpoint -Recommend to continue oral antibiotics for 10 more days -Recommend to hold the Plavix until seen by surgeon at follow-up appointment -Continue PPI for gastritis Physician Pig Machine Operator Helper note has been reviewed by physician. Signing provider agrees with the documented findings, assessment, and plan of care. Objective - Vital Signs Vital signs: Vital Signs Temp 98.5 F 12/20/24 11:29 Pulse 77 12/20/24 11:29 Resp 18 12/20/24 11:29 BP 143/75 12/20/24 11:29 Pulse Ox 96 12/20/24 11:29 FiO2 Intake & Output 12/19/24 12/20/24 12/20/24 18:59 06:59 18:59 Intake Total 420 40 231 Balance 420 40 231 Weight 86.7 kg 87.2 kg Intake: IV 20 40 Invasive Line 3 20 40 Oral 400 231 Other: Voiding Method Toilet Toilet # Voids 1 - Labs CBC & Chem 7: 12/20/24 06:01 12/19/24 17:53 Labs: Abnormal Lab Results - Last 24 Hours (Table) 12/19/24 12/20/24 Range/Units 19:50 06:01 WBC 3.98 L (4.50-10.00) 10*3/uL RBC 3.73 L 3.37 L (4.10-5.20) 10*6/uL Hgb 10.8 L 9.8 L (12.0-15.0) g/dL Hct 32.4 L 29.7 L (37.2-46.3) %
--- NOTE | 2024-12-24 10:50 | CDI ---
Documentation Clarification Form Date: 12/24/2024 10:29:35 AM From: Darlin Yuan RN, CCDS Email: [email or web address] Admit Date: 12/14/2024 10:27:00 PM Patient Name: Karolina Augustin Visit Number: [id number] Discharge Date: 12/20/2024 12:11:00 PM ATTENTION: The Clinical Documentation Specialists (CDI) and [facility] Coding Staff appreciate your assistance in clarifying documentation. Please respond to the clarification below the line at the bottom and electronically sign. The CDI & [facility] Coding staff will review the response and follow-up if needed. Please note: Queries are made part of the Legal Health Record. If you have any questions, please contact the author of this message via ITS. Doctor Henok E Sheet There is documentation of GI bleed likely due to diverticulitis and Plavix in the surgery progress notes. Based on this information and the findings below, clarification is requested. History/Risk Factors: Stroke one year ago, on Plavix, DM, fibromyalgia, HTN and HLD. Presented with abdominal pain and rectal bleeding. Status post EGD on 12/17 showing gastritis of the cardia of stomach. Clinical Indicators: ED: "On further evaluation patient is not on Coumadin but does take Plavix." 12/15 Surgery consult: "GI bleed due to diverticulitis and Plavix. Patient received 1 unit of packed red cells." 12/15 H&P: "Acute bleeding per rectum with abdominal pain. Possible acute colitis and possible colon transverse diverticulitis. On Plavix at home which is put on hold." 12/17 Surgery: "GI bleed likely due to diverticulitis and Plavix. Melanotic stools status post EGD revealing gastritis of cardia of stomach. Continue to hold Plavix." 12/14 PT/PTT/INR: 9.9/19.9/0.9 12/14-12/20 Hgb: 12.6-10.1-8.2-8.3-12.2-9.8 Treatment: Hold Plavix; IV Protonix 40mg daily 12/14-12/17; IV Protonix 40mg BID 12/17-12/20 IV Fluid: 1L 0.9 NS IV bolus x1 on 12/14 then 75mL/hr 12/14-12/20 Transfusion: 2 units PRBC's - 12/15 and 12/17 Is there an additional diagnosis that is clinically appropriate for this patient? [ x ] GI bleed due to diverticulitis and Plavix [ ] Coagulopathy due to GI bleed and Plavix [ ] Other, please specify [ ] Unable to determine MTDD
== END 2024-12-20 12:11 | disposition home or self-care (01) | DRG 813 ==
LOC: EC 19:40 → 6NMEDSUR 22:26 → OBSVTOIN 22:27 → 6NMEDSUR 12-15 06:44 → 3SCARD 12-15 16:00
PROVIDERS: ADMIT Hospitalist; ATTEND Hospitalist
PROC: 30233N1 Transfusion of Nonautologous Red Blood Cells into Peripheral Vein, Percutaneous Approach (ICD-10-PCS; principal; 2024-12-15)
PROC: 05H933Z Insertion of Infusion Device into Right Brachial Vein, Percutaneous Approach (ICD-10-PCS; 2024-12-17)
PROC: 0DB68ZX Excision of Stomach, Via Natural or Artificial Opening Endoscopic, Diagnostic (ICD-10-PCS; 2024-12-17 10:55)
DX: D68.32 Hemorrhagic disorder due to extrinsic circulating anticoagulants (principal); K57.33 Diverticulitis of large intestine without perforation or abscess with bleeding; E11.41 Type 2 diabetes mellitus with diabetic mononeuropathy; I69.331 Monoplegia of upper limb following cerebral infarction affecting right dominant side; F32.A Depression, unspecified; G25.81 Restless legs syndrome; I10 Essential (primary) hypertension; K76.0 Fatty (change of) liver, not elsewhere classified; D62 Acute posthemorrhagic anemia; I69.398 Other sequelae of cerebral infarction; K29.70 Gastritis, unspecified, without bleeding; K44.9 Diaphragmatic hernia without obstruction or gangrene; E78.5 Hyperlipidemia, unspecified; F41.9 Anxiety disorder, unspecified; H91.90 Unspecified hearing loss, unspecified ear; M79.7 Fibromyalgia; G57.93 Unspecified mononeuropathy of bilateral lower limbs; H53.9 Unspecified visual disturbance; H40.9 Unspecified glaucoma; K21.9 Gastro-esophageal reflux disease without esophagitis; K52.9 Noninfective gastroenteritis and colitis, unspecified; Z79.02 Long term (current) use of antithrombotics/antiplatelets; Z79.899 Other long term (current) drug therapy; Z87.891 Personal history of nicotine dependence; Z96.653 Presence of artificial knee joint, bilateral; Z96.641 Presence of right artificial hip joint; Z85.828 Personal history of other malignant neoplasm of skin; Z88.0 Allergy status to penicillin; Z88.8 Allergy status to other drugs, medicaments and biological substances
CPT/HCPCS: 36410; 36415; 36430; 43239; 74177; 76937; 78278; 80048; 80053; 83690; 83735; 84100; 84132; 84145; 84484; 85025; 85027; 85610; 85730; 86850; 86900; 86901; 86920; 88305; 88342; 96361; 96365; 96375; 96376; 99285

== ENCOUNTER 2024-12-24 20:55 | Inpatient (IN) | payer MEDICARE ==
[2024-12-24] MEDS: ONDANSETRON 4 MG/2 ML VIAL IVP STA (21:26)
--- NOTE | 2024-12-24 21:26 | ED ---
Abdominal Pain HPI - General Chief Complaint: Abdominal Pain Stated Complaint: Abd Pain,Nausea Time Seen by Provider: 12/24/24 21:10 Source: patient, RN notes reviewed, old records reviewed Mode of arrival: ambulatory Limitations: no limitations - History of Present Illness Initial Comments: This is a 79-year-old female to the ER. She presents today for evaluation of severe abdominal pain after recent inpatient hospitalization for diverticulitis and GI bleed. Bleeding has stopped she has no current bleeding but now with severe pain and no bowel movements for a week MD Complaint: abdominal pain -: days(s), week(s) Radiation: epigastric, suprapubic Migration to: epigastric, suprapubic Severity: severe Severity scale (1-10): 10 Quality: aching, fullness Improves With: nothing Worsens With: nothing Associated Symptoms: nausea, vomiting Treatments Prior to Arrival: other - Related Data Home Medications Medication Instructions Recorded Confirmed Fenofibrate [Lofibra] 160 mg PO DAILY 11/17/18 12/25/24 Omeprazole 40 mg PO DAILY 10/14/20 12/25/24 rOPINIRole HCL [Requip] 1 mg PO HS 03/16/22 12/25/24 Desvenlafaxine Succinate [Pristiq] 100 mg PO DAILY 04/07/22 12/25/24 Furosemide [Lasix] 20 mg PO DAILY 09/14/22 12/25/24 Metoprolol Succinate (ER) [Toprol 100 mg PO DAILY 09/14/22 12/25/24 XL] Evolocumab [Repatha Sureclick] 140 mg SQ Q14D 12/15/24 12/25/24 Gabapentin 1,200 mg PO HS 12/15/24 12/25/24 Losartan [Cozaar] 50 mg PO DAILY 12/15/24 12/25/24 Tolterodine ER [Detrol LA] 4 mg PO DAILY 12/15/24 12/25/24 Previous Rx's Medication Instructions Recorded Clopidogrel [Plavix] 75 mg PO DAILY #30 tab 01/01/23 HYDROcodone/APAP 7.5-325MG [[place] 1 tab PO Q6HR PRN 3 Days #12 tab 04/18/23 7.5-325] Ondansetron [Zofran] 4 mg PO Q8HR PRN 3 Days #12 tab 05/02/25 Pantoprazole [Protonix] 40 mg PO DAILY #30 tab 12/20/24 cefuroxime axetiL [Ceftin] 500 mg PO BID 10 Days #20 tab 12/20/24 metroNIDAZOLE [Flagyl] 500 mg PO BID 10 Days #20 tab 12/20/24 Allergies Allergy/AdvReac Type Severity Reaction Status Date / Time adhesive Allergy Rash/Hives Verified 12/25/24 10:03 Penicillins Allergy Rash/Hives Verified 12/25/24 10:03 Qhpoqee-YGL-CfV Reductase Allergy Rash/Hives Verified 12/25/24 10:03 Inhibitor [Oygosru-Fhe-Dvr Reductase Inhibitor] aspirin AdvReac STOMACH Verified 12/25/24 10:03 UPSET/HEARTBURN Review of Systems ROS Statement: Those systems with pertinent positive or pertinent negative responses have been documented in the HPI. ROS Other: All systems not noted in ROS Statement are negative. Past Medical History Past Medical History: Cancer, Chest Pain / Angina, Diabetes Mellitus, Eye Disorder, Fibromyalgia, GERD/Reflux, Hearing Disorder / Deafness, Hyperlipidemia, Hypertension, Liver Disease, Musculoskeletal Disorder, Osteoarthritis (OA), Pneumonia, Supraventricular Tachycardia (SVT) Additional Past Medical History / Comment(s): Intestinal adhesions, RESTLESS LEG, Hiatal Hernia, MENIERES, DIVERTICULITIS, GLAUCOMA - right eye, NEUROPATHY bilateral legs, hx anemia, irregular heartbeat (not afib/flutter), DDD, difficulty hearing certain tones, right ear [place], gout, hx skin cancer, fatty liver, diet controlled diabetes. History of Any Multi-Drug Resistant Organisms: None Reported Past Surgical History: Appendectomy, Bladder Surgery, Bowel Resection, Breast Surgery, Cholecystectomy, Ear Surgery, Heart Catheterization, Hernia Repair, Hysterectomy, Joint Replacement, Orthopedic Surgery, Tonsillectomy, Tubal Ligation Additional Past Surgical History / Comment(s): Direct Microlaryngoscopy and removal of left vocal cord mass, benign nicole exsional breast biopsy, diagnostic laparoscopy with lysis of adhesions, bilateral knee replacements, bilateral cataracts removed with lens implants, TUBE IN RIGHT EAR FOR MENIERES, LEFT THUMB SURGERY, hiatal hernia repair, abdominal ventral hernia repair, EGD with dilation X3, spur removed from left and right heel, total right hip replacement. Past Anesthesia/Blood Transfusion Reactions: Previous Problems w/ Anesthesia, Motion Sickness, Postoperative Nausea & Vomiting (PONV) Additional Past Anesthesia/Blood Transfusion Reaction / Comment(s): STATES "DIFFICULT INTUBATION-JAW LOCKED UP AFTER A PREVIOUS INTUBATION". "Have to use child size tube so jaw doesn't lock up". 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 Difficult IV start. Past Psychological History: Anxiety, Depression Smoking Status: Former smoker Past Alcohol Use History: None Reported Past Drug Use History: None Reported - Past Family History Brother(s) Family Medical History: Cancer Mother Family Medical History: Cancer, Deep Vein Thrombosis (DVT), Pulmonary Embolus Additional Family Medical History / Comment(s): STOMACH CANCER. Father Family Medical History: No Reported History Additional Family Medical History / Comment(s): COMMITTED SUICIDE. General Exam Limitations: no limitations General appearance: alert, in no apparent distress Head exam: Present: atraumatic, normocephalic, normal inspection Eye exam: Present: normal appearance, PERRL, EOMI. Absent: scleral icterus, conjunctival injection, periorbital swelling ENT exam: Present: normal exam, mucous membranes moist Neck exam: Present: normal inspection. Absent: tenderness, meningismus, lymphadenopathy Respiratory exam: Present: normal lung sounds bilaterally. Absent: respiratory distress, wheezes, rales, rhonchi, stridor Cardiovascular Exam: Present: regular rate, normal rhythm, normal heart sounds. Absent: systolic murmur, diastolic murmur, rubs, gallop, clicks GI/Abdominal exam: Present: soft, tenderness, guarding, rebound, normal bowel sounds. Absent: distended, rigid Extremities exam: Present: normal inspection, full ROM, normal capillary refill. Absent: tenderness, pedal edema, joint swelling, calf tenderness Back exam: Present: normal inspection Neurological exam: Present: alert, oriented X3, CN II-XII intact Psychiatric exam: Present: normal affect, normal mood Skin exam: Present: warm, dry, intact, normal color. Absent: rash Course Vital Signs 12/24/24 12/24/24 12/25/24 21:04 22:45 00:08 Temperature 98.5 F Pulse Rate 67 67 66 Respiratory 18 16 16 Rate Blood Pressure 156/85 169/84 150/85 O2 Sat by Pulse 95 98 97 Oximetry - Reevaluation(s) Reevaluation #1: 12/24/24 23:25 Medical record is reviewed Reevaluation #2: 12/24/24 23:25 Patient symptoms are unchanged, pain is improved Reevaluation #3: 12/24/24 23:25 Patient informed of results and questions have been answered Reevaluation #4: Was pt. sent in by a medical professional or institution (KATIE Ramirez, BURRING MACHINE OPERATOR, urgent ca re, hospital, or half-way...) When possible be specific @ -no Did you speak to anyone other than the patient for history (EMS, parent, family, police, friend...)? What history was obtained from this source @ -no Did you review nursing and triage notes (agree or disagree)? Why? @ -agree Are old charts reviewed (outside hosp., previous admission, EMS record, old EKG, old radiological studies, urgent care reports/EKG's, half-way records)? Report findings @ -yes Differential Diagnosis (chest pain, altered mental status, abdominal pain women, abdominal pain men, vaginal bleeding, weakness, fever, dyspnea, syncope, headache, dizziness, GI bleed, back pain, seizure, CVA, palpatations, mental health, musculoskeletal)? @ -prior EKG interpreted by me (3pts min.). @ -yes X-rays interpreted by me (1pt min.). @ -no CT interpreted by me (1pt min.). @ -Positive for small bowel obstruction U/S interpreted by me (1pt. min.). @ -no What testing was considered but not performed or refused? (CT, X-rays, U/S, labs)? Why? @ -none What meds were considered but not given or refused? Why? @ -none Did you discuss the management of the patient with other professionals (professionals i.e. KATIE Ramirez, BURRING MACHINE OPERATOR, lab, RT, psych nurse, social worker aide, hand dry cleaner, teacher, liaison officer, case assistant)? Give summary @ -no Was smoking cessation discussed for >3mins.? @ -no Was critical care preformed (if so, how long)? @ -no Were there social determinants of health that impacted care today? How? (Homelessness, low income, unemployed, alcoholism, drug addiction, transportation, low edu. Level, literacy, decrease access to med. care, longterm, rehab)? @ -none Was there de-escalation of care discussed even if they declined (Discuss DNR or withdrawal of care, Hospice)? DNR status @ -no What co-morbidities impacted this encounter? (DM, HTN, Smoking, COPD, CAD, Cancer, CVA, ARF, Chemo, Hep., AIDS, mental health diagnosis, sleep apnea, morbid obesity)? @ -none Was patient admitted / discharged? Hospital course, mention meds given and route, prescriptions, significant lab abnormalities, going to OR and other pertinent info. @ - 79 female to the ER, patient presents today for evaluation of abdominal pain found no small bowel obstruction here in the ER. Patient will admit for n.p.o. symptom management Admitted Undiagnosed new problem with uncertain prognosis? @ -no Drug Therapy requiring intensive monitoring for toxicity (Heparin, Nitro, Insulin, Cardizem)? @ -no Were any procedures done? @ -no Diagnosis/symptom? @ -small bowel obstruction ileus Acute, or Chronic, or Acute on Chronic? @ -Acute Uncomplicated (without systemic symptoms) or Complicated (systemic symptoms)? @ -Complicated Side effects of treatment? @ -no Exacerbation, Progression, or Severe Exacerbation? @ -exacerbation Poses a threat to life or bodily function? How? (Chest pain, [place], NH, pneumonia, PE, COPD, DKA, ARF, appy, cholecystitis, CVA, Diverticulitis, Homicidal, Suicidal, threat to staff... and all critical care pts) @ -yes extremes of a Reevaluation #5: Differential Abdominal Pain Women: Appendicitis, Cholecystitis, diverticulosis, ischemic bowel, pancreatitis, h epatitis, UTI, gastroenteritis, AAA, incarcerated hernia, bowel obstruction, constipation, inflammatory bowel, hepatitis, peptic ulcer disease, splenic infarction, perforated viscus, vulvitis, ovarian torsion, PID, kidney stone, placenta abruption, this is not meant to be an all-inclusive list - Consultations Consultation #1: Spoke with admitting physicians who agreed admit this patient Medical Decision Making - Medical Decision Making 79 female to the ER, patient presents today for evaluation of abdominal pain found a small bowel obstruction here in the ER. Patient will admit for n.p.o. symptom management - Lab Data Result diagrams: 12/27/24 05:07 12/29/24 04:53 Lab Results 12/24/24 12/24/24 12/24/24 Range/Units 21:31 21:31 21:31 WBC 7.22 (4.50-10.00) 10*3/uL RBC 3.91 L (4.10-5.20) 10*6/uL Hgb 11.3 L (12.0-15.0) g/dL Hct 33.1 L (37.2-46.3) % MCV 84.7 (80.0-97.0) fL MCH 28.9 (27.0-32.0) pg MCHC 34.1 (32.0-37.0) g/dL Plt Count 284 (140-440) 10*3/uL MPV 10.6 (9.5-12.2) fL Immature Gran % (Auto) 0.3 % Neutrophils % 66.7 % Lymphocytes % 23.8 % Monocytes % 5.1 % Eosinophils % 3.3 % Basophils % 0.8 % Immature Gran # 0.02 (0.00-0.04) 10*3/uL Neutrophils # 4.81 (1.80-7.70) 10*3/uL Lymphocytes # 1.72 (0.90-5.00) 10*3/uL Monocytes # 0.37 (0.20-1.00) 10*3/uL Eosinophils # 0.24 (0.04-0.35) 10*3/uL Basophils # 0.06 (0.00-0.10) 10*3/uL Sodium 140 (137-145) mmol/L Potassium 4.0 (3.5-5.1) mmol/L Chloride 107 (98-107) mmol/L Carbon Dioxide 22 (22-30) mmol/L Anion Gap 11 mmol/L BUN 16 (7-17) mg/dL Creatinine 0.68 (0.52-1.04) mg/dL Est GFR (CKD-EPI)AfAm >90 (>60 ml/min/1.73 sqM) Est GFR (CKD-EPI)NonAf 85 (>60 ml/min/1.73 sqM) Glucose 140 H (74-99) mg/dL Plasma Lactic Acid [place] 1.5 (0.7-2.0) mmol/L Calcium 9.3 (8.4-10.2) mg/dL Total Bilirubin 0.6 (0.2-1.3) mg/dL AST 57 H (14-36) U/L ALT 31 (4-34) U/L Alkaline Phosphatase 45 (38-126) U/L Total Protein 6.6 (6.3-8.2) g/dL Albumin 4.0 (3.5-5.0) g/dL Amylase 60 (30-110) U/L Lipase 149 (23-300) U/L Urine Color Urine Appearance (Clear) Urine pH (5.0-8.0) Ur Specific [place] (1.001-1.035) Urine Protein (Negative) Urine Glucose (UA) (Negative) Urine Ketones (Negative) Urine Blood (Negative) Urine Nitrite (Negative) Urine Bilirubin (Negative) Urine Urobilinogen (<2.0) mg/dL Ur Leukocyte Esterase (Negative) 12/24/24 Range/Units 22:44 WBC (4.50-10.00) 10*3/uL RBC (4.10-5.20) 10*6/uL Hgb (12.0-15.0) g/dL Hct (37.2-46.3) % MCV (80.0-97.0) fL MCH (27.0-32.0) pg MCHC (32.0-37.0) g/dL Plt Count (140-440) 10*3/uL MPV (9.5-12.2) fL Immature Gran % (Auto) % Neutrophils % % Lymphocytes % % Monocytes % % Eosinophils % % Basophils % % Immature Gran # (0.00-0.04) 10*3/uL Neutrophils # (1.80-7.70) 10*3/uL Lymphocytes # (0.90-5.00) 10*3/uL Monocytes # (0.20-1.00) 10*3/uL Eosinophils # (0.04-0.35) 10*3/uL Basophils # (0.00-0.10) 10*3/uL Sodium (137-145) mmol/L Potassium (3.5-5.1) mmol/L Chloride (98-107) mmol/L Carbon Dioxide (22-30) mmol/L Anion Gap mmol/L BUN (7-17) mg/dL Creatinine (0.52-1.04) mg/dL Est GFR (CKD-EPI)AfAm (>60 ml/min/1.73 sqM) Est GFR (CKD-EPI)NonAf (>60 ml/min/1.73 sqM) Glucose (74-99) mg/dL Plasma Lactic Acid [place] (0.7-2.0) mmol/L Calcium (8.4-10.2) mg/dL Total Bilirubin (0.2-1.3) mg/dL AST (14-36) U/L ALT (4-34) U/L Alkaline Phosphatase (38-126) U/L Total Protein (6.3-8.2) g/dL Albumin (3.5-5.0) g/dL Amylase (30-110) U/L Lipase (23-300) U/L Urine Color Light Yellow Urine Appearance Clear (Clear) Urine pH 5.5 (5.0-8.0) Ur Specific [place] 1.030 (1.001-1.035) Urine Protein Negative (Negative) Urine Glucose (UA) Negative (Negative) Urine Ketones Negative (Negative) Urine Blood Negative (Negative) Urine Nitrite Negative (Negative) Urine Bilirubin Negative (Negative) Urine Urobilinogen <2.0 (<2.0) mg/dL Ur Leukocyte Esterase Negative (Negative) - EKG Data -: EKG Interpreted by Me (EKG is sinus 63 VA 170 QRS 76 QTc 412) - Radiology Data Radiology results: report reviewed (CT of the abdomen and pelvis is positive for small bowel obstruction), image reviewed Disposition Clinical Impression: Small bowel obstruction, Ileus, Abdominal pain, Nausea & vomiting Disposition: ADMITTED IP TO THIS HOSP Condition: Serious Is patient prescribed a controlled substance at d/c from ED?: No Time of Disposition: 23:20
[2024-12-24] MEDS: PANTOPRAZOLE 40 MG/10 ML VIAL IVP STA (21:27)
[2024-12-24] MEDS: SODIUM CHLORIDE 0.9% 1,000 ML IV ONE (21:27)
[2024-12-24 21:42] LABS: Basophils # (A) 0.06 10*3/uL (0.00-0.10); Basophils % (A) 0.8 %; Eosinophils # (A) 0.24 10*3/uL (0.04-0.35); Eosinophils % (A) 3.3 %; HCT 33.1 % (37.2-46.3); HGB 11.3 g/dL (12.0-15.0); Lymphocytes # (A) 1.72 10*3/uL (0.90-5.00); Lymphocytes % (A) 23.8 %; MCH 28.9 pg (27.0-32.0); MCHC 34.1 g/dL (32.0-37.0); MCV 84.7 fL (80.0-97.0); Mean Platelet Volume 10.6 fL (9.5-12.2); Monocytes # (A) 0.37 10*3/uL (0.20-1.00); Monocytes % (A) 5.1 %; Neutrophils # (A) 4.81 10*3/uL (1.80-7.70); Neutrophils % (A) 66.7 %; Platelet Count 284 10*3/uL (140-440); RBC 3.91 10*6/uL (4.10-5.20); RDW 15.2 % (11.5-14.5); WBC 7.22 10*3/uL (4.50-10.00)
[2024-12-24 21:53] LABS: ALT 31 U/L (4-34); African American GFR (CKD) >90 (>60 ml/min/1.73 sqM); Amylase 60 U/L (30-110); Anion Gap 11 mmol/L; Blood Urea Nitrogen 16 mg/dL (7-17); Calcium 9.3 mg/dL (8.4-10.2); Carbon Dioxide 22 mmol/L (22-30); Chloride 107 mmol/L (98-107); Glucose 140 mg/dL (74-99); Lipase 149 U/L (23-300); Non-African American GFR(CKD) 85 (>60 ml/min/1.73 sqM); Sodium 140 mmol/L (137-145); Total Bilirubin 0.6 mg/dL (0.2-1.3)
[2024-12-24 22:00] LABS: AST 57 U/L (14-36); Total Protein 6.6 g/dL (6.3-8.2)
[2024-12-24 22:01] LABS: Alkaline Phosphatase 45 U/L (38-126)
[2024-12-24 22:56] LABS: Appearance,Urine Clear (Clear); Bilirubin,Urine Negative (Negative); Blood,Urine Negative (Negative); Color,Urine Light Yellow; Glucose,Urine (UA) Negative (Negative); Ketones,Urine Negative (Negative); Leukocyte Esterase,Urine Negative (Negative); Nitrite,Urine Negative (Negative); PH, Urine 5.5 (5.0-8.0); Protein,Urine Negative (Negative); Urobilinogen,Urine <2.0 mg/dL (<2.0)
--- NOTE | 2024-12-24 23:13 | CT ---
EXAMINATION TYPE: CT abdomen pelvis w con DATE OF EXAM: 12/24/2024 10:37 PM COMPARISON: 12-13-2024 CLINICAL INDICATION: Female, 79 years old with history of abdominal pain, Patient states abdominal pa in with nausea TECHNIQUE: Axial images were obtained from above the diaphragm to the pubic rami in the axial plane a t 5 mm thick sections. Reconstructed images are reviewed on the computer in the coronal plane. CONTRAST: 100 mL of Isovue 300. Study performed without Oral Contrast DLP: 1288.9 mGycm, Automated exposure control for dose reduction was used. FINDINGS: Limited CT sections are obtained the lung bases. The lung bases are clear. Small to moderate size h iatal hernia is present CT ABDOMEN: Liver: Normal Spleen: Normal Pancreas: Atrophic Adrenal glands: The adrenal glands are normal. Gallbladder: Surgically absent Kidneys: No masses are evident. No hydronephrosis is present. No cysts are present. No renal stone s are evident. Delayed images obtained through the kidneys remain unremarkable Aorta: Vascular calcification is within the aorta. Inferior vena cava: Normal. CT PELVIS: Some limitation in the pelvis due to beam hardening artifact right hip prosthesis There are multiple dilated small bowel loops filled with fluid. This extends to the ileum which is de compressed. Scattered diverticuli within the sigmoid colon. Zone of transition appears to be in the r egion of the left mid abdomen. An obstructing etiology is not identified. This study is without contr ast. Appendix: Normal as visualized. Urinary bladder: Normal. Genitourinary structures: Uterus and ovaries are not identified. Osseous structures: No suspicious lytic or sclerotic lesions. IMPRESSION: 1. Partial small bowel obstruction with a zone of transition in the region of the jejunal ileal junc tion. Report was called to the emergency room by Dr. Collins by telephone at time of interpretation. 2. Diverticulosis without acute diverticulitis. 3. Small hiatal hernia [facility], Workstation: [facility], 12/24/2024 11:11 PM
[2024-12-24] MEDS ORDERED: NALOXONE 0.4 MG/ML 1 ML VIAL IV PRN (23:23)
[2024-12-24] MEDS: HYDROmorphone 1 MG/ML 1 ML SYRINGE IVP STA (23:24)
[2024-12-24] MEDS: DEXTROSE 5%-0.45% NACL 1,000 ML IV SCH (23:38)
[2024-12-25] MEDS: hydrALAZINE HCL 20 MG/ML 1 ML VIAL IVP PRN (02:01)
[2024-12-25] MEDS: HYDROmorphone 1 MG/ML 1 ML SYRINGE IVP PRN (02:02)
[2024-12-25 04:21] LABS: Basophils # (A) 0.03 10*3/uL (0.00-0.10); Basophils % (A) 0.5 %; Eosinophils % (A) 3.3 %; HCT 31.1 % (37.2-46.3); HGB 10.3 g/dL (12.0-15.0); Lymphocytes # (A) 2.03 10*3/uL (0.90-5.00); Lymphocytes % (A) 33.1 %; MCH 28.1 pg (27.0-32.0); MCHC 33.1 g/dL (32.0-37.0); Mean Platelet Volume 9.7 fL (9.5-12.2); Monocytes # (A) 0.37 10*3/uL (0.20-1.00); Neutrophils # (A) 3.48 10*3/uL (1.80-7.70); Neutrophils % (A) 56.8 %; Platelet Count 236 10*3/uL (140-440); RBC 3.66 10*6/uL (4.10-5.20); RDW 15.1 % (11.5-14.5); WBC 6.13 10*3/uL (4.50-10.00)
[2024-12-25 04:36] LABS: ALT 27 U/L (4-34); AST 42 U/L (14-36); African American GFR (CKD) >90 (>60 ml/min/1.73 sqM); Albumin 3.7 g/dL (3.5-5.0); Alkaline Phosphatase 53 U/L (38-126); Anion Gap 8 mmol/L; Blood Urea Nitrogen 14 mg/dL (7-17); Carbon Dioxide 27 mmol/L (22-30); Chloride 105 mmol/L (98-107); Glucose 122 mg/dL (74-99); Magnesium 1.3 mg/dL (1.6-2.3); Non-African American GFR(CKD) 86 (>60 ml/min/1.73 sqM); Phosphorus 3.6 mg/dL (2.5-4.5); Potassium 3.2 mmol/L (3.5-5.1); Sodium 140 mmol/L (137-145); Total Bilirubin 0.5 mg/dL (0.2-1.3); Total Protein 6.1 g/dL (6.3-8.2)
[2024-12-25 06:04] LABS: Glucose,Whole Blood 159 mg/dL (70-110)
[2024-12-25] MEDS: ONDANSETRON 4 MG/2 ML VIAL IVP PRN (06:43)
[2024-12-25 08:25] LABS: Prothrombin Time 10.8 sec (10.0-12.5)
[2024-12-25 08:38] LABS: Partial Thromboplastin Time 21.1 sec (22.0-30.0)
[2024-12-25] MEDS: PANTOPRAZOLE 40 MG/10 ML VIAL IV SCH (08:49)
[2024-12-25] MEDS ORDERED: Potassium Replacement Protocol 1 EACH MISC MISCELLANE PRN (09:12)
[2024-12-25] MEDS ORDERED: Magnesium Replacement Protocol 1 EACH MISC MISCELLANE PRN (09:12)
[2024-12-25 11:46] LABS: Glucose,Whole Blood 135 mg/dL (70-110)
--- NOTE | 2024-12-25 12:20 | P.GSCN ---
History of Present Illness Consult date: 12/25/24 History of present illness: CHIEF COMPLAINT: Abdominal pain HISTORY OF PRESENT ILLNESS: This is a 79-year-old female who presented the hospital with complaints of diffuse abdominal pain more so on the left side. Patient also complains of abdominal distention. She reports that she has not had a bowel movement in 5 days. She is not having flatus. She did have a large emesis early this morning. Since then nausea has improved. Patient had recent hospitalization and was discharged this past Monday for a diverticular GI bleed and had been on Plavix. Patient had a CT scan abdomen pelvis that reported a partial small bowel obstruction. She is currently NPO. Past surgical history does include appendectomy, cholecystectomy, hysterectomy, bowel resection for di verticulitis, ventral hernia repair and hiatal hernia repair. Surgical service consulted for small bowel obstruction. Patient had EGD last week during hospitalization on December 17, 2024 that revealed gastritis of the cardia of the stomach no active bleeding. Last colonoscopy was in May 2024 that had reported external hemorrhoids, diverticulosis and a right colon polyp. Patient reports no prior history of bowel obstruction. PAST MEDICAL HISTORY: See below PAST SURGICAL HISTORY: See below MEDICATIONS: See below ALLERGIES: See below SOCIAL HISTORY: No illicit drug use. REVIEW OF SYSTEMS: CONSTITUTIONAL: Denies fever or chills. HEENT: Denies blurred vision, vision changes, or eye pain. Denies hemoptysis CARDIOVASCULAR: Denies chest pain or pressure. RESPIRATORY: No shortness of breath. GASTROINTESTINAL: See HPI for pertinent findings HEMATOLOGIC: Denies bleeding disorders. GENITOURINARY: Denies any blood in urine or increased urinary frequency. SKIN: Denies pruitis. Denies rash. PHYSICAL EXAM: VITAL SIGNS: Reviewed GENERAL: Well-developed in no acute distress. HEENT: No sclera icterus. Extraocular movements grossly intact. Moist buccal mucosa. Head is atraumatic, normocephalic. No nasal drainage. ABDOMEN: Soft. Mildly distended. Diffuse tenderness palpation but more tender in the left upper abdomen. NEUROLOGIC: Alert and oriented. Cranial nerves II through XII grossly intact. LABORATORY DATA: WBC 6.13 Hgb 10.3 platelets 236 Sodium is 140 potassium 3.2 creatinine 0.65 magnesium 1.3 IMAGING: CT scan abdomen pelvis reports partial small bowel obstruction with zone of transition in the region of the jejunal ileal junction. Diverticulosis without acute diverticulitis, small hiatal hernia. ASSESSMENT: 1. Partial small bowel obstruction with zone of transition in the region of the jejunal ileal junction noted on CT 2. History of abdominal surgeries 3. Recent hospitalization for diverticular GI bleed PLAN: - Keep patient n.p.o. - Encourage patient to ambulate - Replace magnesium and potassium - Continue IV fluid - Continue antiemetics - Continue pain management - Continue to monitor Physician Freight Representative note has been reviewed by physician. Signing provider agrees with the documented findings, assessment, and plan of care. Past Medical History Past Medical History: Cancer, Chest Pain / Angina, Diabetes Mellitus, Eye Disorder, Fibromyalgia, GERD/Reflux, Hearing Disorder / Deafness, Hype rlipidemia, Hypertension, Liver Disease, Musculoskeletal Disorder, Osteoarthritis (OA), Pneumonia, Supraventricular Tachycardia (SVT) Additional Past Medical History / Comment(s): Intestinal adhesions, RESTLESS LEG, Hiatal Hernia, MENIERES, DIVERTICULITIS, GLAUCOMA - right eye, NEUROPATHY bilateral legs, hx anemia, irregular heartbeat (not afib/flutter), DDD, difficulty hearing certain tones, right ear [place], gout, hx skin cancer, fatty liver, diet controlled diabetes. History of Any Multi-Drug Resistant Organisms: None Reported Past Surgical History: Appendectomy, Bladder Surgery, Bowel Resection, Breast Surgery, Cholecystectomy, Ear Surgery, Heart Catheterization, Hernia Repair, Hysterectomy, Joint Replacement, Orthopedic Surgery, Tonsillectomy, Tubal Ligation Additional Past Surgical History / Comment(s): Direct Microlaryngoscopy and removal of left vocal cord mass, benign nicole exsional breast biopsy, diagnostic laparoscopy with lysis of adhesions, bilateral knee replacements, bilateral cataracts removed with lens implants, TUBE IN RIGHT EAR FOR MENIERES, LEFT THUMB SURGERY, hiatal hernia repair, abdominal ventral hernia repair, EGD with dilation X3, spur removed from left and right heel, total right hip replacement. Past Anesthesia/Blood Transfusion Reactions: Previous Problems w/ Anesthesia, Motion Sickness, Postoperative Nausea & Vomiting (PONV) Additional Past Anesthesia/Blood Transfusion Reaction / Comm: STATES "DIFFICULT INTUBATION-JAW LOCKED UP AFTER A PREVIOUS INTUBATION". "Have to use child size tube so jaw doesn't lock up". 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 Difficult IV start. Past Psychological History: Anxiety, Depression Additional Psychological History / Comment(s): . Smoking Status: Former smoker Past Alcohol Use History: None Reported Additional Past Alcohol Use History / Comment(s): Smoked for 5 years, off and on, less then a ppd, quit 40 years ago. Past Drug Use History: None Reported - Past Family History Brother(s) Family Medical History: Cancer Mother Family Medical History: Cancer, Deep Vein Thrombosis (DVT), Pulmonary Embolus Additional Family Medical History / Comment(s): STOMACH CANCER. Father Family Medical History: No Reported History Additional Family Medical History / Comment(s): COMMITTED SUICIDE. Medications and Allergies Home Medications Medication Instructions Recorded Confirmed Type Fenofibrate [Lofibra] 160 mg PO DAILY 11/17/18 12/25/24 History Omeprazole 40 mg PO DAILY 10/14/20 12/25/24 History rOPINIRole HCL [Requip] 1 mg PO HS 03/16/22 12/25/24 History Desvenlafaxine Succinate [Pristiq] 100 mg PO DAILY 04/07/22 12/25/24 History Furosemide [Lasix] 20 mg PO DAILY 09/14/22 12/25/24 History Metoprolol Succinate (ER) [Toprol 100 mg PO DAILY 09/14/22 12/25/24 History XL] Clopidogrel [Plavix] 75 mg PO DAILY #30 tab 01/01/23 12/25/24 Rx HYDROcodone/APAP 7.5-325MG [[place] 1 tab PO Q6HR PRN 3 Days #12 tab 04/18/23 12/25/24 Rx 7.5-325] Evolocumab [Repatha Sureclick] 140 mg SQ Q14D 12/15/24 12/25/24 History Gabapentin 1,200 mg PO HS 12/15/24 12/25/24 History Losartan [Cozaar] 50 mg PO DAILY 12/15/24 12/25/24 History Tolterodine ER [Detrol LA] 4 mg PO DAILY 12/15/24 12/25/24 History Ondansetron [Zofran] 4 mg PO Q8HR PRN 3 Days #12 tab 12/20/24 12/25/24 Rx Pantoprazole [Protonix] 40 mg PO DAILY #30 tab 12/20/24 12/25/24 Rx cefuroxime axetiL [Ceftin] 500 mg PO BID 10 Days #20 tab 12/20/24 12/25/24 Rx metroNIDAZOLE [Flagyl] 500 mg PO BID 10 Days #20 tab 12/20/24 12/25/24 Rx Allergies Allergy/AdvReac Type Severity Reaction Status Date / Time adhesive Allergy Rash/Hives Verified 12/25/24 10:03 Penicillins Allergy Rash/Hives Verified 12/25/24 10:03 Xvjjwcy-XLE-YrS Reductase Allergy Rash/Hives Verified 12/25/24 10:03 Inhibitor [Bwgzvvx-Kpt-Ops Reductase Inhibitor] aspirin AdvReac STOMACH Verified 12/25/24 10:03 UPSET/HEARTBURN Surgical - Exam Vital Signs Temp Pulse Resp BP Pulse Ox 98.5 F 67 18 156/85 95 12/24/24 21:04 12/24/24 21:04 12/24/24 21:04 12/24/24 21:04 12/24/24 21:04 Results - Labs 12/25/24 04:00 12/25/24 04:00 Abnormal Lab Results - Last 24 Hours (Table) 12/24/24 12/24/24 12/25/24 Range/Units 21:31 21:31 04:00 RBC 3.91 L 3.66 L (4.10-5.20) 10*6/uL Hgb 11.3 L 10.3 L (12.0-15.0) g/dL Hct 33.1 L 31.1 L (37.2-46.3) % APTT (22.0-30.0) sec Potassium (3.5-5.1) mmol/L Glucose 140 H (74-99) mg/dL POC Glucose (mg/dL) (70-110) mg/dL Magnesium (1.6-2.3) mg/dL AST 57 H (14-36) U/L Total Protein (6.3-8.2) g/dL 12/25/24 12/25/24 12/25/24 Range/Units 04:00 06:03 06:25 RBC (4.10-5.20) 10*6/uL Hgb (12.0-15.0) g/dL Hct (37.2-46.3) % APTT 21.1 L (22.0-30.0) sec Potassium 3.2 L (3.5-5.1) mmol/L Glucose 122 H (74-99) mg/dL POC Glucose (mg/dL) 159 H (70-110) mg/dL Magnesium 1.3 L (1.6-2.3) mg/dL AST 42 H (14-36) U/L Total Protein 6.1 L (6.3-8.2) g/dL 12/25/24 Range/Units 11:45 RBC (4.10-5.20) 10*6/uL Hgb (12.0-15.0) g/dL Hct (37.2-46.3) % APTT (22.0-30.0) sec Potassium (3.5-5.1) mmol/L Glucose (74-99) mg/dL POC Glucose (mg/dL) 135 H (70-110) mg/dL Magnesium (1.6-2.3) mg/dL AST (14-36) U/L Total Protein (6.3-8.2) g/dL Diabetes panel 12/24/24 12/25/24 Range/Units 21:31 04:00 Sodium 140 140 (137-145) mmol/L Potassium 4.0 3.2 L (3.5-5.1) mmol/L Chloride 107 105 (98-107) mmol/L Carbon Dioxide 22 27 (22-30) mmol/L BUN 16 14 (7-17) mg/dL Creatinine 0.68 0.65 (0.52-1.04) mg/dL Glucose 140 H 122 H (74-99) mg/dL Calcium 9.3 9.0 (8.4-10.2) mg/dL AST 57 H 42 H (14-36) U/L ALT 31 27 (4-34) U/L Alkaline Phosphatase 45 53 (38-126) U/L Total Protein 6.6 6.1 L (6.3-8.2) g/dL Albumin 4.0 3.7 (3.5-5.0) g/dL Calcium panel 12/24/24 12/25/24 Range/Units 21:31 04:00 Calcium 9.3 9.0 (8.4-10.2) mg/dL Phosphorus 3.6 (2.5-4.5) mg/dL Albumin 4.0 3.7 (3.5-5.0) g/dL Pituitary panel 12/24/24 12/25/24 Range/Units 21:31 04:00 Sodium 140 140 (137-145) mmol/L Potassium 4.0 3.2 L (3.5-5.1) mmol/L Chloride 107 105 (98-107) mmol/L Carbon Dioxide 22 27 (22-30) mmol/L BUN 16 14 (7-17) mg/dL Creatinine 0.68 0.65 (0.52-1.04) mg/dL Glucose 140 H 122 H (74-99) mg/dL Calcium 9.3 9.0 (8.4-10.2) mg/dL Adrenal panel 12/24/24 12/25/24 Range/Units 21:31 04:00 Sodium 140 140 (137-145) mmol/L Potassium 4.0 3.2 L (3.5-5.1) mmol/L Chloride 107 105 (98-107) mmol/L Carbon Dioxide 22 27 (22-30) mmol/L BUN 16 14 (7-17) mg/dL Creatinine 0.68 0.65 (0.52-1.04) mg/dL Glucose 140 H 122 H (74-99) mg/dL Calcium 9.3 9.0 (8.4-10.2) mg/dL Total Bilirubin 0.6 0.5 (0.2-1.3) mg/dL AST 57 H 42 H (14-36) U/L ALT 31 27 (4-34) U/L Alkaline Phosphatase 45 53 (38-126) U/L Total Protein 6.6 6.1 L (6.3-8.2) g/dL Albumin 4.0 3.7 (3.5-5.0) g/dL
[2024-12-25] MEDS ORDERED: POTASSIUM CHLORIDE ER 20 MEQ TAB.ER PO STA (12:53)
[2024-12-25] MEDS: POTASSIUM CHLORIDE ER 20 MEQ TAB.ER PO SCH (12:53)
[2024-12-25] MEDS: MAGNESIUM SULFATE-D5W PMX 1 GM in DEXTROSE/WATER 1 100ML.BAG IVPB SCH (12:53)
[2024-12-25] MEDS ORDERED: MAGNESIUM SULFATE-D5W PMX 1 GM in DEXTROSE/WATER 1 100ML.BAG IVPB SCH (13:00)
--- NOTE | 2024-12-25 13:01 | P.HPIM ---
History of Present Illness Patient 79-year-old female came in with complaints of diffuse abdominal pain more so on the left side. Patient is found to have partial small bowel obstruction with transition point in the jejunal area proximally. Patient last bowel movement was 5 days ago patient did have vomiting earlier in the morning presently nauseous. NG tube was offered by general surgery and patient declined to get have an NG tube. Patient had gastritis in the previous EGD that was done earlier last month without any acute bleeding. Patient also has electrolyte abnormalities including low potassium and low potassium secondary to nausea vomiting. Serum creatinine within normal limits patient does not have any leukocytosis or fever. REVIEW OF SYSTEMS: All other systems are negative except those mentioned in the HPI PHYSICAL EXAMINATION: GENERAL: The patient is alert and oriented x3, not in any acute distress. Well developed, well nourished. HEENT: Pupils are round and equally reacting to light. EOMI. No scleral icterus. No conjunctival pallor. Normocephalic, atraumatic. No pharyngeal erythema. No thyromegaly. CARDIOVASCULAR: S1 and S2 present. No murmurs, rubs, or gallops. PULMONARY: Chest is clear to auscultation, no wheezing or crackles. ABDOMEN: Distended absent bowel sounds MUSCULOSKELETAL: No joint swelling or deformity. EXTREMITIES: No cyanosis, clubbing, or pedal edema. NEUROLOGICAL: Gross neurological examination did not reveal any focal deficits. SKIN: No rashes. Assessment and plan -Partial small bowel obstruction patient will remain n.p.o. IV fluids General Surgery evaluated the patient after extensive counseling patient is agreeable for NG tube. Will add Toradol for pain to avoid excess use of opiates - Hypokalemia and hypomagnesemia both will be replaced - Type 2 diabetes mellitus patient will be on sliding scale insulin - Gastroesophageal reflux disease - Hypertension for which patient will be resumed on metoprolol but not on losartan as patient is n.p.o. at this time - History of SVT will be resumed on beta-john - Hyperlipidemia - Restless leg syndrome for which patient will be started on Requip DVT prophylaxis: Lovenox Past Medical History Past Medical History: Cancer, Chest Pain / Angina, Diabetes Mellitus, Eye Disorder, Fibromyalgia, GERD/Reflux, Hearing Disorder / Deafness, Hyperlipidemia, Hypertension, Liver Disease, Musculoskeletal Disorder, Osteoarthritis (OA), Pneumonia, Supraventricular Tachycardia (SVT) Additional Past Medical History / Comment(s): Intestinal adhesions, RESTLESS LEG, Hiatal Hernia, MENIERES, DIVERTICULITIS, GLAUCOMA - right eye, NEUROPATHY bilateral legs, hx anemia, irregular heartbeat (not afib/flutter), DDD, difficulty hearing certain tones, right ear [place], gout, hx skin cancer, fatty liver, diet controlled diabetes. History of Any Multi-Drug Resistant Organisms: None Reported Past Surgical History: Appendectomy, Bladder Surgery, Bowel Resection, Breast Surgery, Cholecystectomy, Ear Surgery, Heart Catheterization, Hernia Repair, Hysterectomy, Joint Replacement, Orthopedic Surgery, Tonsillectomy, Tubal Ligation Additional Past Surgical History / Comment(s): Direct Microlaryngoscopy and removal of left vocal cord mass, benign nicole exsional breast biopsy, diagnostic laparoscopy with lysis of adhesions, bilateral knee replacements, bilateral cataracts removed with lens implants, TUBE IN RIGHT EAR FOR MENIERES, LEFT THUMB SURGERY, hiatal hernia repair, abdominal ventral hernia repair, EGD with dilation X3, spur removed from left and right heel, total right hip replacement. Past Anesthesia/Blood Transfusion Reactions: Previous Problems w/ Anesthesia, Motion Sickness, Postoperative Nausea & Vomiting (PONV) Additional Past Anesthesia/Blood Transfusion Reaction / Comment(s): STATES "DIFFICULT INTUBATION-JAW LOCKED UP AFTER A PREVIOUS INTUBATION". "Have to use child size tube so jaw doesn't lock up". 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 Difficult IV start. Past Psychological History: Anxiety, Depression Additional Psychological History / Comment(s): . Smoking Status: Former smoker Past Alcohol Use History: None Reported Additional Past Alcohol Use History / Comment(s): Smoked for 5 years, off and on, less then a ppd, quit 40 years ago. Past Drug Use History: None Reported - Past Family History Brother(s) Family Medical History: Cancer Mother Family Medical History: Cancer, Deep Vein Thrombosis (DVT), Pulmonary Embolus Additional Family Medical History / Comment(s): STOMACH CANCER. Father Family Medical History: No Reported History Additional Family Medical History / Comment(s): COMMITTED SUICIDE. Medications and Allergies Home Medications Medication Instructions Recorded Confirmed Type Fenofibrate [Lofibra] 160 mg PO DAILY 11/17/18 12/25/24 History Omeprazole 40 mg PO DAILY 10/14/20 12/25/24 History rOPINIRole HCL [Requip] 1 mg PO HS 03/16/22 12/25/24 History Desvenlafaxine Succinate [Pristiq] 100 mg PO DAILY 04/07/22 12/25/24 History Furosemide [Lasix] 20 mg PO DAILY 09/14/22 12/25/24 History Metoprolol Succinate (ER) [Toprol 100 mg PO DAILY 09/14/22 12/25/24 History XL] Clopidogrel [Plavix] 75 mg PO DAILY #30 tab 01/01/23 12/25/24 Rx HYDROcodone/APAP 7.5-325MG [[place] 1 tab PO Q6HR PRN 3 Days #12 tab 04/18/23 12/25/24 Rx 7.5-325] Evolocumab [Repatha Sureclick] 140 mg SQ Q14D 12/15/24 12/25/24 History Gabapentin 1,200 mg PO HS 12/15/24 12/25/24 History Losartan [Cozaar] 50 mg PO DAILY 12/15/24 12/25/24 History Tolterodine ER [Detrol LA] 4 mg PO DAILY 12/15/24 12/25/24 History Ondansetron [Zofran] 4 mg PO Q8HR PRN 3 Days #12 tab 12/20/24 12/25/24 Rx Pantoprazole [Protonix] 40 mg PO DAILY #30 tab 12/20/24 12/25/24 Rx cefuroxime axetiL [Ceftin] 500 mg PO BID 10 Days #20 tab 12/20/24 12/25/24 Rx metroNIDAZOLE [Flagyl] 500 mg PO BID 10 Days #20 tab 12/20/24 12/25/24 Rx Allergies Allergy/AdvReac Type Severity Reaction Status Date / Time adhesive Allergy Rash/Hives Verified 12/25/24 10:03 Penicillins Allergy Rash/Hives Verified 12/25/24 10:03 Cgkfzag-ODF-JbL Reductase Allergy Rash/Hives Verified 12/25/24 10:03 Inhibitor [Nurrjft-Srp-Ixv Reductase Inhibitor] aspirin AdvReac STOMACH Verified 12/25/24 10:03 UPSET/HEARTBURN Physical Exam Vitals: Vital Signs Temp Pulse Pulse Resp BP BP Pulse Ox 12/25/24 08:00 98.2 F 81 17 122/66 92 L 12/25/24 01:44 98.1 F 74 16 177/91 95 12/25/24 00:08 66 16 150/85 97 12/24/24 22:45 67 16 169/84 98 12/24/24 21:04 98.5 F 67 18 156/85 95 Intake and Output 12/24/24 12/25/24 12/25/24 22:59 06:59 14:59 Output Total 1999 -1999 Output: Emesis 1999 Other: Weight 86.183 kg 86.183 kg Results CBC & Chem 7: 12/25/24 04:00 12/25/24 04:00 Labs: Abnormal Lab Results - Last 24 Hours (Table) 12/24/24 12/24/24 12/25/24 Range/Units 21:31 21:31 04:00 RBC 3.91 L 3.66 L (4.10-5.20) 10*6/uL Hgb 11.3 L 10.3 L (12.0-15.0) g/dL Hct 33.1 L 31.1 L (37.2-46.3) % APTT (22.0-30.0) sec Potassium (3.5-5.1) mmol/L Glucose 140 H (74-99) mg/dL POC Glucose (mg/dL) (70-110) mg/dL Magnesium (1.6-2.3) mg/dL AST 57 H (14-36) U/L Total Protein (6.3-8.2) g/dL 12/25/24 12/25/24 12/25/24 Range/Units 04:00 06:03 06:25 RBC (4.10-5.20) 10*6/uL Hgb (12.0-15.0) g/dL Hct (37.2-46.3) % APTT 21.1 L (22.0-30.0) sec Potassium 3.2 L (3.5-5.1) mmol/L Glucose 122 H (74-99) mg/dL POC Glucose (mg/dL) 159 H (70-110) mg/dL Magnesium 1.3 L (1.6-2.3) mg/dL AST 42 H (14-36) U/L Total Protein 6.1 L (6.3-8.2) g/dL 12/25/24 Range/Units 11:45 RBC (4.10-5.20) 10*6/uL Hgb (12.0-15.0) g/dL Hct (37.2-46.3) % APTT (22.0-30.0) sec Potassium (3.5-5.1) mmol/L Glucose (74-99) mg/dL POC Glucose (mg/dL) 135 H (70-110) mg/dL Magnesium (1.6-2.3) mg/dL AST (14-36) U/L Total Protein (6.3-8.2) g/dL Thrombosis Risk Factor Assmnt - Choose All That Apply Any of the Below Risk Factors Present?: Yes Each Factor Represents 1 point: Obesity (BMI >25), Varicose veins Other Risk Factors: Yes Each Risk Factor Represents 3 Points: Age 75 years or older Other congenital or acquired thrombophilia - If yes, enter type in comment: No Thrombosis Risk Factor Assessment Total Risk Factor Score: 5 Thrombosis Risk Factor Assessment Level: High Risk
[2024-12-25] MEDS: LORazepam 1 MG/0.5 ML VIAL IM STA (13:41)
[2024-12-25] MEDS: POTASSIUM CHLORIDE ER 20 MEQ TAB.ER PO ONE (13:48)
[2024-12-25] MEDS: METOPROLOL SUCCINATE (ER) 100 MG TAB.ER.24H PO SCH (13:54)
[2024-12-25 16:57] LABS: Glucose,Whole Blood 115 mg/dL (70-110)
[2024-12-25] MEDS: GABAPENTIN 400 MG CAP PO SCH (20:40)
[2024-12-25 20:46] LABS: Glucose,Whole Blood 105 mg/dL (70-110)
[2024-12-26 06:08] LABS: Glucose,Whole Blood 119 mg/dL (70-110)
[2024-12-26] MEDS: OXYBUTYNIN XL 5 MG TAB.ER.24 PO SCH (08:11)
[2024-12-26] MEDS: ENOXAPARIN 40 MG/0.4 ML SYRINGE SQ SCH (08:11)
[2024-12-26 08:31] LABS: HCT 29.6 % (37.2-46.3); HGB 9.5 g/dL (12.0-15.0); MCH 28.4 pg (27.0-32.0); MCHC 32.1 g/dL (32.0-37.0); MCV 88.4 FL (80.0-97.0); Mean Platelet Volume 10.8 FL (9.5-12.2); NRBC Per 100 WBC 0 X 10*3/uL (0.00-0.01); Platelet Count 214 X 10*3/uL (140-440); RBC 3.35 X 10*6/uL (4.10-5.20); RDW 15.6 % (11.5-14.5); WBC 3.15 X 10*3/uL (4.50-10.00)
[2024-12-26 08:58] LABS: Blood Urea Nitrogen 8.1 mg/dL (9.0-27.0); Calcium 8.5 mg/dL (8.7-10.3); Carbon Dioxide 23.6 mmol/L (21.6-31.8); Chloride 111 mmol/L (96-109); Glucose 114 mg/dL (70-110); Sodium 143 mmol/L (135-145)
--- NOTE | 2024-12-26 11:25 | XR ---
EXAMINATION TYPE: XR abdomen 2V DATE OF EXAM: 12/26/2024 COMPARISON: CT abdomen and pelvis 12/24/2024, abdominal radiograph 09/15/2022 HISTORY: Pain TECHNIQUE: Single supine KUB image of the abdomen is obtained FINDINGS: Small bowel demonstrates no evidence for dilatation or air fluid levels. Gas and fecal material is seen in non-distended colon. No convincing evidence for pneumoperitoneum. No unusual calcifications. Extensive anterior abdominal wall mesh anchors. Surgical clips within the left pelvis. The lung bases are clear. Cardiomegaly. Right hip arthroplasty change. Degenerative changes of the visualized thoracolumbar spine. IMPRESSION: Overall nonobstructive appearing bowel gas pattern. [facility], , 12/26/2024 11:22 AM
--- NOTE | 2024-12-26 12:08 | P.PN ---
Subjective Progress Note Date: 12/26/24 SURGICAL PROGRESS NOTE CHIEF COMPLAINT: Partial small bowel obstruction HISTORY OF PRESENT ILLNESS: Patient reports her abdominal pain is improving. She denies any nausea or further vomiting. She does report feeling hungry. She has been up and ambulating. Still no flatus or bowel movement. Afebrile. WBC is 3.15 Hgb 9.5 plt 214 Na 143 k 4.0 cr 0.6 abdominal x-ray from this morning reports nonobstructing bowel gas pattern PHYSICAL EXAM: VITAL SIGNS: Reviewed. GENERAL: Well-developed in no acute distress. ABDOMEN: Soft. Nondistended. Mild tenderness mid and upper abdomen with palpation NEUROLOGIC: Alert and oriented. Cranial nerves II through XII grossly intact. ASSESSMENT: 1. Partial small bowel obstruction improving. Abdominal x-ray reports nonobstructive bowel gas pattern 2. History of abdominal surgeries 3. Recent hospitalization for diverticular GI bleed PLAN: - Advance diet to clear liquids - Encourage patient to ambulate - Continue to monitor Physician Switcher note has been reviewed by physician. Signing provider agrees with the documented findings, assessment, and plan of care. I have personally seen and examined the patient, reviewed the INFANTRY OFFICER /PAs history, exam and MDM and agree with the assessment and plan as written. Based on total visit time, I have performed more than 50% of the visit. As above: Patient with some increased appetite. No nausea or vomiting. Did have a bowel movement yesterday. X-rays improved. Begin clear liquids. Objective - Vital Signs Vital signs: Vital Signs Temp 98.1 F 12/26/24 07:10 Pulse 63 12/26/24 07:10 Resp 16 12/26/24 07:10 BP 163/83 12/26/24 07:10 Pulse Ox 95 12/26/24 07:10 FiO2 Intake & Output 12/25/24 12/26/24 12/26/24 18:59 06:59 18:59 Output Total 1999 Balance -1999 Output: Emesis 1999 Other: # Voids 3 2 # Bowel Movements 3 - Labs CBC & Chem 7: 12/26/24 04:54 12/26/24 04:54 Labs: Abnormal Lab Results - Last 24 Hours (Table) 12/25/24 12/26/24 12/26/24 Range/Units 16:55 04:54 04:54 WBC 3.15 L (4.50-10.00) X 10*3/uL RBC 3.35 L (4.10-5.20) X 10*6/uL Hgb 9.5 L (12.0-15.0) g/dL Hct 29.6 L (37.2-46.3) % RDW 15.6 H (11.5-14.5) % Chloride 111 H (96-109) mmol/L BUN 8.1 L (9.0-27.0) mg/dL Glucose 114 H (70-110) mg/dL POC Glucose (mg/dL) 115 H (70-110) mg/dL Calcium 8.5 L (8.7-10.3) mg/dL 12/26/24 Range/Units 06:06 WBC (4.50-10.00) X 10*3/uL RBC (4.10-5.20) X 10*6/uL Hgb (12.0-15.0) g/dL Hct (37.2-46.3) % RDW (11.5-14.5) % Chloride (96-109) mmol/L BUN (9.0-27.0) mg/dL Glucose (70-110) mg/dL POC Glucose (mg/dL) 119 H (70-110) mg/dL Calcium (8.7-10.3) mg/dL
[2024-12-26 12:21] LABS: Glucose,Whole Blood 119 mg/dL (70-110)
[2024-12-26 16:50] LABS: Glucose,Whole Blood 109 mg/dL (70-110)
[2024-12-26 20:00] LABS: Glucose,Whole Blood 87 mg/dL (70-110)
[2024-12-26] MEDS: KETOROLAC 15 MG/ML 1 ML VIAL IVP PRN (21:17)
--- NOTE | 2024-12-26 21:49 | P.PN ---
Subjective Progress Note Date: 12/26/24 Patient 79-year-old female came in with complaints of diffuse abdominal pain more so on the left side. Patient is found to have partial small bowel obstruction with transition point in the jejunal area proximally. Patient last bowel movement was 5 days ago patient did have vomiting earlier in the morning presently nauseous. NG tube was offered by general surgery and patient declined to get have an NG tube. Patient had gastritis in the previous EGD that was done earlier last month without any acute bleeding. Patient also has electrolyte abnormalities including low potassium and low potassium secondary to nausea vomiting. Serum creatinine within normal limits patient does not have any leukocytosis or fever. 12/26/2024 Patient is evaluated today in follow up resting in bed. Has had BM. Remains on liquid diet. Pending further surgical recommendations. Abdominal xray today reveals overall nonobstructive appearing bowel gas pattern. REVIEW OF SYSTEMS: All other systems are negative except those mentioned in the HPI PHYSICAL EXAMINATION: GENERAL: The patient is alert and oriented x3, not in any acute distress. Well developed, well nourished. HEENT: Pupils are round and equally reacting to light. EOMI. No scleral icterus. No conjunctival pallor. Normocephalic, atraumatic. No pharyngeal erythema. No thyromegaly. CARDIOVASCULAR: S1 and S2 present. No murmurs, rubs, or gallops. PULMONARY: Chest is clear to auscultation, no wheezing or crackles. ABDOMEN: Distended absent bowel sounds MUSCULOSKELETAL: No joint swelling or deformity. EXTREMITIES: No cyanosis, clubbing, or pedal edema. NEUROLOGICAL: Gross neurological examination did not reveal any focal deficits. SKIN: No rashes. Assessment and plan - Partial small bowel obstruction patient will remain n.p.o. IV fluids General Surgery evaluated the patient after extensive counseling patient is agreeable for NG tube. Will add Toradol for pain to avoid excess use of opiates - Hypokalemia and hypomagnesemia normalized after supplementation - Type 2 diabetes mellitus patient will be on sliding scale insulin - Gastroesophageal reflux disease - Hypertension resumed on home medications - History of SVT will be resumed on beta-john - Hyperlipidemia - Restless leg syndrome for which patient will be started on Requip DVT prophylaxis: Lovenox Patient supposed to be completing 10 day course of oral ceftin and flagyl from prior hospital stay. Bowels are moving. Monitor electrolytes and renal function. The impression and plan of care has been dictated by Dilma Mcdonald, Nurse Practitioner as directed. Dr. Fouzia MD I have performed a history and physical examination and medical decision making of this patient, discussed the same with the dictator, and agree with the dictators assessment and plan as written, documented as a scribe. Based on total visit time, I have performed more than 50% of this visit. Objective - Vital Signs Vital signs: Vital Signs Temp 98.5 F 12/26/24 14:00 Pulse 62 12/26/24 14:00 Resp 16 12/26/24 14:00 BP 149/79 12/26/24 14:00 Pulse Ox 98 12/26/24 14:00 FiO2 Intake & Output 12/25/24 12/26/24 12/26/24 18:59 06:59 18:59 Output Total 1999 Balance -1999 Output: Emesis 1999 Other: # Voids 3 2 # Bowel Movements 3 - Labs CBC & Chem 7: 12/26/24 04:54 12/26/24 04:54 Labs: Abnormal Lab Results - Last 24 Hours (Table) 12/25/24 12/26/24 12/26/24 Range/Units 16:55 04:54 04:54 WBC 3.15 L (4.50-10.00) X 10*3/uL RBC 3.35 L (4.10-5.20) X 10*6/uL Hgb 9.5 L (12.0-15.0) g/dL Hct 29.6 L (37.2-46.3) % RDW 15.6 H (11.5-14.5) % Chloride 111 H (96-109) mmol/L BUN 8.1 L (9.0-27.0) mg/dL Glucose 114 H (70-110) mg/dL POC Glucose (mg/dL) 115 H (70-110) mg/dL Calcium 8.5 L (8.7-10.3) mg/dL 12/26/24 12/26/24 Range/Units 06:06 12:20 WBC (4.50-10.00) X 10*3/uL RBC (4.10-5.20) X 10*6/uL Hgb (12.0-15.0) g/dL Hct (37.2-46.3) % RDW (11.5-14.5) % Chloride (96-109) mmol/L BUN (9.0-27.0) mg/dL Glucose (70-110) mg/dL POC Glucose (mg/dL) 119 H 119 H (70-110) mg/dL Calcium (8.7-10.3) mg/dL Assessment and Plan Time with Patient: Less than 30
[2024-12-26] MEDS: LOSARTAN 50 MG TAB PO SCH (22:26)
[2024-12-27 06:12] LABS: Glucose,Whole Blood 108 mg/dL (70-110)
[2024-12-27] MEDS: FENOFIBRATE 160 MG TAB PO SCH (08:07)
[2024-12-27] MEDS: DESVENLAFAXINE SUCCINATE 50 MG TAB.ER.24H PO SCH (08:07)
[2024-12-27] MEDS: CLOPIDOGREL 75 MG TAB PO SCH (08:07)
[2024-12-27 08:22] LABS: Basophils # (A) 0.03 X 10*3/uL (0.00-0.10); Basophils % (A) 0.8 %; Eosinophils # (A) 0.17 X 10*3/uL (0.04-0.35); Eosinophils % (A) 4.8 %; HCT 32.6 % (37.2-46.3); HGB 10.5 g/dL (12.0-15.0); Lymphocytes # (A) 1.83 X 10*3/uL (0.90-5.00); Lymphocytes % (A) 51.8 %; MCH 28.4 pg (27.0-32.0); MCHC 32.2 g/dL (32.0-37.0); MCV 88.1 FL (80.0-97.0); Mean Platelet Volume 10.5 FL (9.5-12.2); Monocytes # (A) 0.23 X 10*3/uL (0.20-1.00); Monocytes % (A) 6.5 %; NRBC Per 100 WBC 0 X 10*3/uL (0.00-0.01); Neutrophils # (A) 1.26 X 10*3/uL (1.80-7.70); Neutrophils % (A) 35.8 %; Platelet Count 231 X 10*3/uL (140-440); RDW 15.2 % (11.5-14.5); WBC 3.53 X 10*3/uL (4.50-10.00)
[2024-12-27 08:27] LABS: BUN/Creat Ratio 8.67 Ratio (12.00-20.00); Blood Urea Nitrogen 5.2 mg/dL (9.0-27.0); Glucose 99 mg/dL (70-110)
[2024-12-27 08:28] LABS: Carbon Dioxide 25.4 mmol/L (21.6-31.8); Chloride 112 mmol/L (96-109); Potassium 3.7 mmol/L (3.5-5.5); Sodium 147 mmol/L (135-145)
[2024-12-27] MEDS: PANTOPRAZOLE 40 MG TABLET PO SCH (09:07)
--- NOTE | 2024-12-27 09:43 | P.PN ---
Subjective Progress Note Date: 12/27/24 SURGICAL PROGRESS NOTE CHIEF COMPLAINT: Partial small bowel obstruction HISTORY OF PRESENT ILLNESS: Patient sitting at bedside chair. She does report she is hungry. She still has some mild upper abdominal pain but reports it is improving. Denies any nausea or vomiting. She had 2 bowel movements yesterday evening that had small amount of blood noted. Her hemoglobin is stable at 10.5. Last colonoscopy was in May 2024 that reported hemorrhoids, diverticulosis and right colon polyp. Patient's Plavix was restarted this morning. Bleeding episodes last night or prior to Plavix being given. PHYSICAL EXAM: VITAL SIGNS: Reviewed. GENERAL: Well-developed in no acute distress. ABDOMEN: Soft. Nondistended. Mild tenderness mid and upper abdomen with palpation NEUROLOGIC: Alert and oriented. Cranial nerves II through XII grossly intact. ASSESSMENT: 1. Partial small bowel obstruction resolved. Abdominal x-ray reports nonobstructive bowel gas pattern 2. History of abdominal surgeries 3. Recent hospitalization for diverticular GI bleed PLAN: -Advance diet to full liquids -Hold Lovenox this morning -Continue to monitor for any signs or symptoms of bleeding -Repeat hgb in AM Physician Heel Blacker note has been reviewed by physician. Signing provider agrees with the documented findings, assessment, and plan of care. I have personally seen and examined the patient, reviewed the MACHINE FITTER /PAs history, exam and MDM and agree with the assessment and plan as written. Based on total visit time, I have performed more than 50% of the visit. As above: Patient feeling better. No nausea or vomiting. Had 3 bowel movements to avoid she had a small amount of blood. The most recent bowel movement had no bleeding. Last colonoscopy 1 year ago. Patient is asking for regular food. Will advance diet to regular. May discharge if tolerates. Objective - Vital Signs Vital signs: Vital Signs Temp 98.5 F 12/27/24 07:02 Pulse 58 L 12/27/24 07:02 Resp 17 12/27/24 07:02 BP 184/75 12/27/24 07:02 Pulse Ox 95 12/27/24 07:02 FiO2 Intake & Output 12/26/24 12/27/24 12/27/24 18:59 06:59 18:59 Other: Voiding Method Toilet # Voids 3 2 # Bowel Movements 1 1 - Labs CBC & Chem 7: 12/27/24 05:07 12/27/24 05:07 Labs: Abnormal Lab Results - Last 24 Hours (Table) 12/26/24 12/27/24 12/27/24 Range/Units 12:20 05:07 05:07 WBC 3.53 L (4.50-10.00) X 10*3/uL RBC 3.70 L (4.10-5.20) X 10*6/uL Hgb 10.5 L (12.0-15.0) g/dL Hct 32.6 L (37.2-46.3) % RDW 15.2 H (11.5-14.5) % Neutrophils # 1.26 L (1.80-7.70) X 10*3/uL Sodium 147 H (135-145) mmol/L Chloride 112 H (96-109) mmol/L BUN 5.2 L (9.0-27.0) mg/dL BUN/Creatinine Ratio 8.67 L (12.00-20.00) Ratio POC Glucose (mg/dL) 119 H (70-110) mg/dL
[2024-12-27 11:55] LABS: Glucose,Whole Blood 97 mg/dL (70-110)
[2024-12-27] MEDS: DEXTROSE 5% IN WATER 1,000 ML IV SCH (16:49)
[2024-12-27 17:05] LABS: Glucose,Whole Blood 132 mg/dL (70-110)
[2024-12-27] MEDS: HYDROcodone/APAP 7.5-325MG 1 EACH TAB PO PRN (17:56)
--- NOTE | 2024-12-27 22:29 | P.PN ---
Subjective Progress Note Date: 12/27/24 Patient 79-year-old female came in with complaints of diffuse abdominal pain more so on the left side. Patient is found to have partial small bowel obstruction with transition point in the jejunal area proximally. Patient last bowel movement was 5 days ago patient did have vomiting earlier in the morning presently nauseous. NG tube was offered by general surgery and patient declined to get have an NG tube. Patient had gastritis in the previous EGD that was done earlier last month without any acute bleeding. Patient also has electrolyte abnormalities including low potassium and low potassium secondary to nausea vomiting. Serum creatinine within normal limits patient does not have any leukocytosis or fever. 12/26/2024 Patient is evaluated today in follow up resting in bed. Has had BM. Remains on liquid diet. Pending further surgical recommendations. Abdominal xray today reveals overall nonobstructive appearing bowel gas pattern. 12/27/2024 Patient is evaluated today in follow up on the medical floor. Patient has had a few small BMs. Asking of increased diet. States that she has bleeding in her stool and describes it as orange colored not red. Hgb 10.5. REVIEW OF SYSTEMS: All other systems are negative except those mentioned in the HPI PHYSICAL EXAMINATION: GENERAL: The patient is alert and oriented x3, not in any acute distress. Well developed, well nourished. HEENT: Pupils are round and equally reacting to light. EOMI. No scleral icterus. No conjunctival pallor. Normocephalic, atraumatic. No pharyngeal erythema. No thyromegaly. CARDIOVASCULAR: S1 and S2 present. No murmurs, rubs, or gallops. PULMONARY: Chest is clear to auscultation, no wheezing or crackles. ABDOMEN: Distended absent bowel sounds MUSCULOSKELETAL: No joint swelling or deformity. EXTREMITIES: No cyanosis, clubbing, or pedal edema. NEUROLOGICAL: Gross neurological examination did not reveal any focal deficits. SKIN: No rashes. Assessment and plan - Partial small bowel obstruction improving - Hypokalemia and hypomagnesemia normalized after supplementation - Type 2 diabetes mellitus patient will be on sliding scale insulin - Gastroesophageal reflux disease - Hypertension resumed on home medications - History of SVT will be resumed on beta-john - Hyperlipidemia - Restless leg syndrome for which patient will be started on Requip DVT prophylaxis: Lovenox Patient supposed to be completing 10 day course of oral ceftin and flagyl from prior hospital stay. Bowels are moving. Monitor electrolytes and renal function. Diet advanced to regular. Started the D5 water for the elevated sodium and repeat labs in the AM. The impression and plan of care has been dictated by Dilma Mcdonald, Nurse Practitioner as directed. Dr. Fouzia MD I have performed a history and physical examination and medical decision making of this patient, discussed the same with the dictator, and agree with the dictators assessment and plan as written, documented as a scribe. Based on total visit time, I have performed more than 50% of this visit. Objective - Vital Signs Vital signs: Vital Signs Temp 98.5 F 12/27/24 07:02 Pulse 58 L 12/27/24 07:02 Resp 17 12/27/24 07:02 BP 184/75 12/27/24 07:02 Pulse Ox 95 12/27/24 07:02 FiO2 Intake & Output 12/26/24 12/27/24 12/27/24 18:59 06:59 18:59 Other: Voiding Method Toilet # Voids 3 2 # Bowel Movements 1 1 - Labs CBC & Chem 7: 12/27/24 05:07 12/27/24 05:07 Labs: Abnormal Lab Results - Last 24 Hours (Table) 12/27/24 12/27/24 Range/Units 05:07 05:07 WBC 3.53 L (4.50-10.00) X 10*3/uL RBC 3.70 L (4.10-5.20) X 10*6/uL Hgb 10.5 L (12.0-15.0) g/dL Hct 32.6 L (37.2-46.3) % RDW 15.2 H (11.5-14.5) % Neutrophils # 1.26 L (1.80-7.70) X 10*3/uL Sodium 147 H (135-145) mmol/L Chloride 112 H (96-109) mmol/L BUN 5.2 L (9.0-27.0) mg/dL BUN/Creatinine Ratio 8.67 L (12.00-20.00) Ratio Assessment and Plan Time with Patient: Less than 30
[2024-12-27 22:41] LABS: Glucose,Whole Blood 130 mg/dL (70-110)
[2024-12-28 06:23] LABS: Glucose,Whole Blood 106 mg/dL (70-110)
--- NOTE | 2024-12-28 10:45 | P.PN ---
Subjective Progress Note Date: 12/28/24 Principal diagnosis: Small bowel obstruction Patient doing well today. No further bleeding. She does have some nausea today. No vomiting. She ate most of her dinner and breakfast. No significant pain. Objective - Vital Signs Vital signs: Vital Signs Temp 97.8 F 12/28/24 07:24 Pulse 68 12/28/24 07:24 Resp 17 12/28/24 07:24 BP 176/87 12/28/24 07:24 Pulse Ox 94 L 12/28/24 07:24 FiO2 Intake & Output 12/27/24 12/28/24 12/28/24 18:59 06:59 18:59 Intake Total 1650 180 Balance 1650 180 Intake: Oral 1650 180 Other: Voiding Method Toilet # Voids 5 # Bowel Movements 1 - Exam Abdomen: Soft, nondistended, nontender - Labs CBC & Chem 7: 12/27/24 05:07 12/27/24 05:07 Labs: Abnormal Lab Results - Last 24 Hours (Table) 12/27/24 12/27/24 Range/Units 17:04 22:39 POC Glucose (mg/dL) 132 H 130 H (70-110) mg/dL Assessment and Plan (1) Small bowel obstruction Narrative/Plan: 79-year-old female with readmission for possible small bowel obstruction versus ileus. Patient improving clinically with short duration bowel rest. Continue regular diet. If tolerates may discharge. Current Visit: Yes Status: Acute Code(s): K56.609 - UNSP INTESTNL OBST, UNSP TO PARTIAL VERSUS COMPLETE OBST SNOMED Code(s): 976625491
[2024-12-28 11:09] LABS: BUN/Creat Ratio 12.86 Ratio (12.00-20.00); Calcium 8.9 mg/dL (8.7-10.3); Carbon Dioxide 22.7 mmol/L (21.6-31.8); Chloride 109 mmol/L (96-109); Glucose 134 mg/dL (70-110); Potassium 3.8 mmol/L (3.5-5.5); Sodium 143 mmol/L (135-145)
[2024-12-28 11:36] LABS: Glucose,Whole Blood 107 mg/dL (70-110)
--- NOTE | 2024-12-28 14:04 | P.PN ---
Subjective Progress Note Date: 12/28/24 Patient 79-year-old female came in with complaints of diffuse abdominal pain more so on the left side. Patient is found to have partial small bowel obstruction with transition point in the jejunal area proximally. Patient last bowel movement was 5 days ago patient did have vomiting earlier in the morning presently nauseous. NG tube was offered by general surgery and patient declined to get have an NG tube. Patient had gastritis in the previous EGD that was done earlier last month without any acute bleeding. Patient also has electrolyte abnormalities including low potassium and low potassium secondary to nausea vomiting. Serum creatinine within normal limits patient does not have any leukocytosis or fever. 12/26/2024 Patient is evaluated today in follow up resting in bed. Has had BM. Remains on liquid diet. Pending further surgical recommendations. Abdominal xray today reveals overall nonobstructive appearing bowel gas pattern. 12/27/2024 Patient is evaluated today in follow up on the medical floor. Patient has had a few small BMs. Asking of increased diet. States that she has bleeding in her stool and describes it as orange colored not red. Hgb 10.5. 12/28/2024 Patient evaluated and resting in bed. She continues to report some nausea and minimal abdominal discomfort. She was able to tolerate regular diet for breakfast however she did vomit up her lunch. She is not quite ready for discharge yet. Review of Systems Constitutional: Denied any fatigue denied any fever. Cardio vascular: denied any chest pain, palpitations Gastrointestinal: Reports nausea and vomiting. Pulmonary: Denied any shortness of breath cough Neurologic denied any new focal deficits All inpatient medications were reviewed and appropriate changes in these medications as dictated in the interval history and assessment and plan. PHYSICAL EXAMINATION: GENERAL: The patient is alert and oriented x3, not in any acute distress. Well developed, well nourished. HEENT: Pupils are round and equally reacting to light. EOMI. No scleral icterus. No conjunctival pallor. Normocephalic, atraumatic. No pharyngeal erythema. No thyromegaly. CARDIOVASCULAR: S1 and S2 present. No murmurs, rubs, or gallops. PULMONARY: Chest is clear to auscultation, no wheezing or crackles. ABDOMEN: No distention, normoactive bowel sounds MUSCULOSKELETAL: No joint swelling or deformity. EXTREMITIES: No cyanosis, clubbing, or pedal edema. NEUROLOGICAL: Gross neurological examination did not reveal any focal deficits. SKIN: No rashes. Assessment and plan - Partial small bowel obstruction improving - Hypokalemia and hypomagnesemia normalized after supplementation - Type 2 diabetes mellitus patient will be on sliding scale insulin - Gastroesophageal reflux disease - Hypertension resumed on home medications - History of SVT will be resumed on beta-john - Hyperlipidemia - Restless leg syndrome for which patient will be started on Requip DVT prophylaxis: Lovenox Patient supposed to be completing 10 day course of oral ceftin and flagyl from prior hospital stay. Bowels are moving. Monitor electrolytes and renal function. Continue D5 water until tolerating more oral intake. Diet back to full liquid d ue to pt vomiting. Repeat labs in the AM. The impression and plan of care has been dictated by Dilma Mcdonald Nurse Practitioner as directed. Dr. Fouzia MD I have performed a history and physical examination and medical decision making of this patient, discussed the same with the dictator, and agree with the dictators assessment and plan as written, documented as a scribe. Based on total visit time, I have performed more than 50% of this visit. Objective - Vital Signs Vital signs: Vital Signs Temp 97.8 F 12/28/24 07:24 Pulse 68 12/28/24 07:24 Resp 17 12/28/24 07:24 BP 176/87 12/28/24 07:24 Pulse Ox 94 L 12/28/24 07:24 FiO2 Intake & Output 12/27/24 12/28/24 12/28/24 18:59 06:59 18:59 Intake Total 1650 180 Balance 1650 180 Intake: Oral 1650 180 Other: Voiding Method Toilet # Voids 5 1 # Bowel Movements 1 - Labs CBC & Chem 7: 12/27/24 05:07 12/28/24 03:38 Labs: Abnormal Lab Results - Last 24 Hours (Table) 12/27/24 12/27/24 12/28/24 Range/Units 17:04 22:39 03:38 Glucose 134 H (70-110) mg/dL POC Glucose (mg/dL) 132 H 130 H (70-110) mg/dL Assessment and Plan Time with Patient: Less than 30
[2024-12-28 16:45] LABS: Glucose,Whole Blood 110 mg/dL (70-110)
[2024-12-28 20:09] LABS: Glucose,Whole Blood 172 mg/dL (70-110)
[2024-12-29 06:29] LABS: Glucose,Whole Blood 100 mg/dL (70-110)
[2024-12-29 09:56] LABS: Blood Urea Nitrogen 12.6 mg/dL (9.0-27.0); Glucose 96 mg/dL (70-110)
[2024-12-29 09:57] LABS: Calcium 9.2 mg/dL (8.7-10.3); Carbon Dioxide 24.5 mmol/L (21.6-31.8); Chloride 108 mmol/L (96-109); Potassium 4.2 mmol/L (3.5-5.5); Sodium 143 mmol/L (135-145)
[2024-12-29 11:27] LABS: Glucose,Whole Blood 120 mg/dL (70-110)
--- NOTE | 2024-12-29 11:38 | P.PN ---
Subjective Progress Note Date: 12/29/24 Principal diagnosis: Small bowel obstruction Patient feels well today. Had a bowel movement yesterday. Did have episodes of vomiting last night. Tolerating full liquids. Asking for regular diet again. Denies pain. Objective - Vital Signs Vital signs: Vital Signs Temp 97.5 F L 12/29/24 07:11 Pulse 65 12/29/24 07:11 Resp 16 12/29/24 07:11 BP 160/84 12/29/24 07:11 Pulse Ox 93 L 12/29/24 07:11 FiO2 Intake & Output 12/28/24 12/29/24 12/29/24 18:59 06:59 18:59 Intake Total 1040 240 Balance 1040 240 Intake: Oral 1040 240 Other: Voiding Method Toilet # Voids 3 2 - Exam Abdomen: Soft, nondistended, minimal tenderness - Labs CBC & Chem 7: 12/27/24 05:07 12/29/24 04:53 Labs: Abnormal Lab Results - Last 24 Hours (Table) 12/28/24 12/29/24 Range/Units 20:07 11:26 POC Glucose (mg/dL) 172 H 120 H (70-110) mg/dL Assessment and Plan (1) Small bowel obstruction Narrative/Plan: Patient had episodes of vomiting last night although symptoms improved. She would like to try regular diet today. Will resume regular diet. Ambulate. Current Visit: Yes Status: Acute Code(s): K56.609 - UNSP INTESTNL OBST, UNSP TO PARTIAL VERSUS COMPLETE OBST SNOMED Code(s): 707835441
[2024-12-29 16:56] LABS: Glucose,Whole Blood 164 mg/dL (70-110)
[2024-12-29 20:26] LABS: Glucose,Whole Blood 156 mg/dL (70-110)
[2024-12-29 23:06] VITALS: RESP 18
--- NOTE | 2024-12-29 23:19 | P.PN ---
Subjective Progress Note Date: 12/29/24 Patient 79-year-old female came in with complaints of diffuse abdominal pain more so on the left side. Patient is found to have partial small bowel obstruction with transition point in the jejunal area proximally. Patient last bowel movement was 5 days ago patient did have vomiting earlier in the morning presently nauseous. NG tube was offered by general surgery and patient declined to get have an NG tube. Patient had gastritis in the previous EGD that was done earlier last month without any acute bleeding. Patient also has electrolyte abnormalities including low potassium and low potassium secondary to nausea vomiting. Serum creatinine within normal limits patient does not have any leukocytosis or fever. 12/26/2024 Patient is evaluated today in follow up resting in bed. Has had BM. Remains on liquid diet. Pending further surgical recommendations. Abdominal xray today reveals overall nonobstructive appearing bowel gas pattern. 12/27/2024 Patient is evaluated today in follow up on the medical floor. Patient has had a few small BMs. Asking of increased diet. States that she has bleeding in her stool and describes it as orange colored not red. Hgb 10.5. 12/28/2024 Patient evaluated and resting in bed. She continues to report some nausea and minimal abdominal discomfort. She was able to tolerate regular diet for breakfast however she did vomit up her lunch. She is not quite ready for discharge yet. 12/29/2024 Patient evaluated today in follow up. Resting in bed comfortably. Patient reporting nausea. Has not had a good sized BM yet. Does not want any stool softeners/laxatives. Wants to try regular diet again. Review of Systems Constitutional: Denied any fatigue denied any fever. Cardio vascular: denied any chest pain, palpitations Gastrointestinal: Reports nausea and vomiting. Pulmonary: Denied any shortness of breath cough Neurologic denied any new focal deficits All inpatient medications were reviewed and appropriate changes in these medications as dictated in the interval history and assessment and plan. PHYSICAL EXAMINATION: GENERAL: The patient is alert and oriented x3, not in any acute distress. Well developed, well nourished. HEENT: Pupils are round and equally reacting to light. EOMI. No scleral icterus. No conjunctival pallor. Normocephalic, atraumatic. No pharyngeal erythema. No thyromegaly. CARDIOVASCULAR: S1 and S2 present. No murmurs, rubs, or gallops. PULMONARY: Chest is clear to auscultation, no wheezing or crackles. ABDOMEN: No distention, normoactive bowel sounds MUSCULOSKELETAL: No joint swelling or deformity. EXTREMITIES: No cyanosis, clubbing, or pedal edema. NEUROLOGICAL: Gross neurological examination did not reveal any focal deficits. SKIN: No rashes. Assessment and plan - Partial small bowel obstruction improving - Hypokalemia and hypomagnesemia normalized after supplementation - Type 2 diabetes mellitus patient will be on sliding scale insulin - Gastroesophageal reflux disease - Hypertension resumed on home medications - History of SVT will be resumed on beta-john - Hyperlipidemia - Restless leg syndrome for which patient will be started on Requip DVT prophylaxis: Lovenox Patient supposed to be completing 10 day course of oral ceftin and flagyl from prior hospital stay. Bowels are moving. Monitor electrolytes and renal function. Continue D5 water until tolerating more oral intake. Diet back to full liquid due to pt vomiting. Repeat labs in the AM. The impression and plan of care has been dictated by Dilma Mcdonald, Nurse Practitioner as directed. Dr. Fouzia MD I have performed a history and physical examination and medical decision making of this patient, discussed the same with the dictator, and agree with the dictators assessment and plan as written, documented as a scribe. Based on total visit time, I have performed more than 50% of this visit. Objective - Vital Signs Vital signs: Vital Signs Temp 98.2 F 12/29/24 00:10 Pulse 61 12/29/24 00:10 Resp 16 12/29/24 00:10 BP 143/73 12/29/24 00:10 Pulse Ox 94 L 12/29/24 00:10 FiO2 Intake & Output 12/28/24 12/29/24 12/29/24 18:59 06:59 18:59 Intake Total 1040 240 Balance 1040 240 Intake: Oral 1040 240 Other: Voiding Method Toilet # Voids 3 2 - Labs CBC & Chem 7: 12/27/24 05:07 12/29/24 04:53 Labs: Abnormal Lab Results - Last 24 Hours (Table) 12/28/24 12/28/24 Range/Units 03:38 20:07 Glucose 134 H (70-110) mg/dL POC Glucose (mg/dL) 172 H (70-110) mg/dL Assessment and Plan Time with Patient: Less than 30
[2024-12-30 06:18] LABS: Glucose,Whole Blood 101 mg/dL (70-110)
[2024-12-30 07:20] VITALS: BP 158/77; PULSE 63; TEMP 97.7
--- NOTE | 2024-12-30 10:33 | CDI ---
Documentation Clarification Form Date: 12/30/2024 10:03:18 AM From: Darlin Yuan RN, CCDS Email: [email or web address] Admit Date: 12/24/2024 11:23:00 PM Patient Name: Karolina Augustin Visit Number: [id number] Discharge Date: ATTENTION: The Clinical Documentation Specialists (CDI) and [facility] Coding Staff appreciate your assistance in clarifying documentation. Please respond to the clarification below the line at the bottom and electronically sign. The CDI & [facility] Coding staff will review the response and follow-up if needed. Please note: Queries are made part of the Legal Health Record. If you have any questions, please contact the author of this message via ITS. KATIE Aviles PA-C Possible GI bleeding is documented in the 12/27 progress note. Clarification is requested. History/Risk Factors: from the 12/24 ED note: "presents today for evaluation of severe abdominal pain after recent inpatient hospitalization for diverticulitis and GI bleed. Bleeding has stopped she has no current bleeding but now with severe pain and no bowel movements for a week." Admitted with small bowel obstruction. Clinical Indicators: 12/25 Surgery consult: "Recent hospitalization for diverticular GI bleed." 12/27 Surgery: "Patient's Plavix was restarted this morning. Bleeding episodes last night prior to Plavix being given. Plavix discontinued due to possible GI bleeding." 12/27 IM: "States that she has bleeding in her stool and describes it as orange colored not red. Hgb 10.5." 12/24-12/27 Hgb: 11.3-10.3-9.5-10.5 Treatment: Monitor CBC 12/24-12/27; Hold Plavix Please clarify if GI bleed is: [ ] GI bleed confirmed, remains under treatment [XX ] GI bleed confirmed, resolved [ ] GI bleed ruled out [ ] Other condition, please specify [ ] Unable to determine MTDD
--- NOTE | 2024-12-30 10:48 | P.PN ---
Subjective Progress Note Date: 12/30/24 SURGICAL PROGRESS NOTE CHIEF COMPLAINT: Partial small bowel obstruction HISTORY OF PRESENT ILLNESS: Patient sitting at bedside chair. She reports improvement in her abdominal pain. She reports having bowel movements. She reports no further blood in her stools. She denies any nausea or vomiting. Julian erating regular diet. She does feel ready for discharge. Afebrile. Last hemoglobin 10.5 on 12/27/2024 PHYSICAL EXAM: VITAL SIGNS: Reviewed. GENERAL: Well-developed in no acute distress. ABDOMEN: Soft. Nondistended. Mild tenderness mid and upper abdomen with palpation NEUROLOGIC: Alert and oriented. Cranial nerves II through XII grossly intact. ASSESSMENT: 1. Partial small bowel obstruction resolved. Abdominal x-ray reports nonobstructive bowel gas pattern 2. History of abdominal surgeries 3. Recent hospitalization for diverticular GI bleed. Patient's GI bleed has resolved. PLAN: -Patient can be discharged from surgical standpoint -Continue regular diet -Encouraged patient to stay on a fiber supplement at home Physician Construction Management Assistant note has been reviewed by physician. Signing provider agrees with the documented findings, assessment, and plan of care. Objective - Vital Signs Vital signs: Vital Signs Temp 97.7 F 12/30/24 07:19 Pulse 63 12/30/24 07:19 Resp 18 12/30/24 07:19 BP 158/77 12/30/24 07:19 Pulse Ox 95 12/30/24 07:19 FiO2 Intake & Output 12/29/24 12/30/24 12/30/24 18:59 06:59 18:59 Intake Total 137 240 Balance 137 240 Intake: Oral 137 240 Other: Voiding Method Toilet # Voids 3 3 # Bowel Movements 1 - Labs CBC & Chem 7: 12/27/24 05:07 12/29/24 04:53 Labs: Abnormal Lab Results - Last 24 Hours (Table) 12/29/24 12/29/24 12/29/24 Range/Units 11:26 16:55 20:25 POC Glucose (mg/dL) 120 H 164 H 156 H (70-110) mg/dL
[2024-12-30 11:22] LABS: Glucose,Whole Blood 180 mg/dL (70-110)
--- NOTE | 2025-01-01 18:50 | P.DS ---
Providers Date of admission: 12/24/24 23:23 Attending physician: Kasey Montoya Consults: 12/24/24 23:23 Consult Physician Routine Consulting Provider: Bonifacio Squires Consult Reason/Comments: known/SBO Do you want consulting provider notified?: Yes Primary care physician: Damir Hernandez [facility] Course: Final Diagnosis - Partial small bowel obstruction; resolved - Hypokalemia and hypomagnesemia normalized after supplementation - Type 2 diabetes mellitus patient will be on sliding scale insulin - Gastroesophageal reflux disease - Hypertension resumed on home medications - History of SVT will be resumed on beta-john - Hyperlipidemia - Restless leg syndrome for which patient will be started on Requip Discharge Disposition Patient is stable for discharge home. Patient to follow up with general surgery. Regular diet as tolerated. Hospital Course Patient 79-year-old female came in with complaints of diffuse abdominal pain more so on the left side. Patient is found to have partial small bowel obstruction with transition point in the jejunal area proximally. Patient last bowel movement was 5 days ago patient did have vomiting earlier in the morning presently nauseous. NG tube was offered by general surgery and patient declined to get have an NG tube. Patient had gastritis in the previous EGD that was done earlier last month without any acute bleeding. Patient also has electrolyte abnormalities including low potassium and low potassium secondary to nausea vomiting. Serum creatinine within normal limits patient does not have any leukocytosis or fever. Patient was started on liquid diet. General surgery evaluated the patient. She was monitored and did have multiple bowel movements and tolerating liquid diet. She is cleared for discharge home. Please see medication reconciliation for a list of current medications. Thank you for allowing us to participate in the care of this patient. The impression and plan of care has been dictated by Dilma Mcdonald, Nurse Practitioner as directed. Dr. Fouzia MD I have performed a history and physical examination and medical decision making of this patient, discussed the same with the dictator, and agree with the dictators assessment and plan as written, documented as a scribe. Based on total visit time, I have performed more than 50% of this visit. Patient Condition at Discharge: Fair Plan - Discharge Summary Discharge Rx Participant: Yes New Discharge Prescriptions: Continue Fenofibrate [Lofibra] 160 mg PO DAILY Omeprazole 40 mg PO DAILY rOPINIRole HCL [Requip] 1 mg PO HS Desvenlafaxine Succinate [Pristiq] 100 mg PO DAILY Furosemide [Lasix] 20 mg PO DAILY HYDROcodone/APAP 7.5-325MG [[place] 7.5-325] 1 tab PO Q6HR PRN 3 Days #12 tab PRN Reason: Pain Ondansetron [Zofran] 4 mg PO Q8HR PRN 3 Days #12 tab PRN Reason: Nausea And Vomiting Metoprolol Succinate (ER) [Toprol XL] 100 mg PO DAILY Clopidogrel [Plavix] 75 mg PO DAILY #30 tab Losartan [Cozaar] 50 mg PO DAILY Gabapentin 1,200 mg PO HS Evolocumab [Repatha Sureclick] 140 mg SQ Q14D Tolterodine ER [Detrol LA] 4 mg PO DAILY Pantoprazole [Protonix] 40 mg PO DAILY #30 tab Discontinued cefuroxime axetiL [Ceftin] 500 mg PO BID 10 Days #20 tab metroNIDAZOLE [Flagyl] 500 mg PO BID 10 Days #20 tab Discharge Medication List Fenofibrate [Lofibra] 160 mg PO DAILY 11/17/18 [History] Omeprazole 40 mg PO DAILY 10/14/20 [History] rOPINIRole HCL [Requip] 1 mg PO HS 03/16/22 [History] Desvenlafaxine Succinate [Pristiq] 100 mg PO DAILY 04/07/22 [History] Furosemide [Lasix] 20 mg PO DAILY 09/14/22 [History] Metoprolol Succinate (ER) [Toprol XL] 100 mg PO DAILY 09/14/22 [History] Clopidogrel [Plavix] 75 mg PO DAILY #30 tab 01/01/23 [Rx] HYDROcodone/APAP 7.5-325MG [[place] 7.5-325] 1 tab PO Q6HR PRN 3 Days #12 tab 04/18/23 [Rx] Evolocumab [Repatha Sureclick] 140 mg SQ Q14D 12/15/24 [History] Gabapentin 1,200 mg PO HS 12/15/24 [History] Losartan [Cozaar] 50 mg PO DAILY 12/15/24 [History] Tolterodine ER [Detrol LA] 4 mg PO DAILY 12/15/24 [History] Ondansetron [Zofran] 4 mg PO Q8HR PRN 3 Days #12 tab 12/20/24 [Rx] Pantoprazole [Protonix] 40 mg PO DAILY #30 tab 12/20/24 [Rx] Follow up Appointment(s)/Referral(s): Damir Hernandez DO [Primary Care Provider] - 01/06/25 8:45 am Bonifacio Squires MD [STAFF PHYSICIAN] - 01/07/25 3:10 pm Ambulatory/Diagnostic Orders: Basic Metabolic Panel [LAB.AMB] Location: None Selected Complete Blood Count w/diff [LAB.AMB] Time Frame: 3 Days, Location: None Selected Activity/Diet/Wound Care/Special Instructions: Diet as tolerated Discharge Disposition: HOME SELF-CARE
== END 2024-12-30 14:18 | disposition home or self-care (01) | DRG 390 ==
LOC: EC 20:55 → 4SSUR 23:23
PROVIDERS: ADMIT Hospitalist; ATTEND Hospitalist
DX: K56.600 Partial intestinal obstruction, unspecified as to cause (principal); E11.9 Type 2 diabetes mellitus without complications; I10 Essential (primary) hypertension; G25.81 Restless legs syndrome; K56.7 Ileus, unspecified; E78.5 Hyperlipidemia, unspecified; E83.42 Hypomagnesemia; K21.9 Gastro-esophageal reflux disease without esophagitis; E87.6 Hypokalemia; Z79.899 Other long term (current) drug therapy; Z88.6 Allergy status to analgesic agent; Z88.0 Allergy status to penicillin; Z91.048 Other nonmedicinal substance allergy status; Z87.891 Personal history of nicotine dependence; Z79.02 Long term (current) use of antithrombotics/antiplatelets; Z90.710 Acquired absence of both cervix and uterus; Z96.641 Presence of right artificial hip joint
CPT/HCPCS: 36415; 74019; 74177; 80048; 80053; 81003; 82150; 83605; 83690; 83735; 84100; 84132; 85025; 85027; 85610; 85730; 93005; 96361; 96374; 96375; 99285

== ENCOUNTER 2025-01-28 09:26 | Emergency (ER) | payer MEDICARE ==
--- NOTE | 2025-01-28 09:48 | ED ---
General Adult HPI - General Stated complaint: Vomiting Time Seen by Provider: 01/28/25 09:30 Source: patient, RN notes reviewed, old records reviewed - History of Present Illness Initial comments: This is a 79-year-old female who presents to the emergency department complaining of vomiting for 2 days. Patient states she been unable to keep anything down. Patient states she has been told in the past she has a partial bowel obstruction. Patient denies any fever or chills. Patient states she has had a little bit of diarrhea as well. Patient denies any back pain. Patient states she has had a hiatal hernia repair x 2 and she has had appendectomy and a cholecystectomy. - Related Data Home Medications Medication Instructions Recorded Confirmed Fenofibrate [Lofibra] 160 mg PO DAILY 11/17/18 01/28/25 Omeprazole 40 mg PO DAILY 10/14/20 01/28/25 rOPINIRole HCL [Requip] 1 mg PO HS 03/16/22 01/28/25 Desvenlafaxine Succinate [Pristiq] 100 mg PO DAILY 04/07/22 01/28/25 Furosemide [Lasix] 20 mg PO DAILY 09/14/22 01/28/25 Metoprolol Succinate (ER) [Toprol 100 mg PO DAILY 09/14/22 01/28/25 XL] Evolocumab [Repatha Sureclick] 140 mg SQ Q14D 12/15/24 01/28/25 Gabapentin 1,200 mg PO HS 12/15/24 01/28/25 Losartan [Cozaar] 50 mg PO DAILY 12/15/24 01/28/25 Tolterodine ER [Detrol LA] 4 mg PO DAILY 12/15/24 01/28/25 Previous Rx's Medication Instructions Recorded Clopidogrel [Plavix] 75 mg PO DAILY #30 tab 01/01/23 HYDROcodone/APAP 7.5-325MG [[place] 1 tab PO Q6HR PRN 3 Days #12 tab 04/18/23 7.5-325] Ondansetron [Zofran] 4 mg PO Q8HR PRN 3 Days #12 tab 12/20/24 Pantoprazole [Protonix] 40 mg PO DAILY #30 tab 12/20/24 Allergies Allergy/AdvReac Type Severity Reaction Status Date / Time adhesive Allergy Rash/Hives Verified 01/28/25 11:53 Penicillins Allergy Rash/Hives Verified 01/28/25 11:53 Eldxpnw-CEM-DrV Reductase Allergy Rash/Hives Verified 01/28/25 11:53 Inhibitor [Rrajjrn-Xby-Keb Reductase Inhibitor] aspirin AdvReac STOMACH Verified 01/28/25 11:53 UPSET/HEARTBURN Review of Systems ROS Statement: Those systems with pertinent positive or pertinent negative responses have been documented in the HPI. ROS Other: All systems not noted in ROS Statement are negative. Past Medical History Past Medical History: Cancer, Chest Pain / Angina, Diabetes Mellitus, Eye Disorder, Fibromyalgia, GERD/Reflux, Hearing Disorder / Deafness, Hyperlipidem ia, Hypertension, Liver Disease, Musculoskeletal Disorder, Osteoarthritis (OA), Pneumonia, Supraventricular Tachycardia (SVT) Additional Past Medical History / Comment(s): Intestinal adhesions, RESTLESS LEG, Hiatal Hernia, MENIERES, DIVERTICULITIS, GLAUCOMA - right eye, NEUROPATHY bilateral legs, hx anemia, irregular heartbeat (not afib/flutter), DDD, difficulty hearing certain tones, right ear [place], gout, hx skin cancer, fatty liver, diet controlled diabetes. History of Any Multi-Drug Resistant Organisms: None Reported Past Surgical History: Appendectomy, Bladder Surgery, Bowel Resection, Breast Surgery, Cholecystectomy, Ear Surgery, Heart Catheterization, Hernia Repair, Hysterectomy, Joint Replacement, Orthopedic Surgery, Tonsillectomy, Tubal Ligation Additional Past Surgical History / Comment(s): Direct Microlaryngoscopy and removal of left vocal cord mass, benign nicole exsional breast biopsy, diagnostic laparoscopy with lysis of adhesions, bilateral knee replacements, bilateral cataracts removed with lens implants, TUBE IN RIGHT EAR FOR MENIERES, LEFT THUMB SURGERY, hiatal hernia repair, abdominal ventral hernia repair, EGD with dilation X3, spur removed from left and right heel, total right hip replacement. Past Anesthesia/Blood Transfusion Reactions: Previous Problems w/ Anesthesia, Motion Sickness, Postoperative Nausea & Vomiting (PONV) Additional Past Anesthesia/Blood Transfusion Reaction / Comment(s): STATES "DIFFICULT INTUBATION-JAW LOCKED UP AFTER A PREVIOUS INTUBATION". "Have to use child size tube so jaw doesn't lock up". 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 Difficult IV start. Past Psychological History: Anxiety, Depression Smoking Status: Former smoker Past Alcohol Use History: None Reported Past Drug Use History: None Reported - Past Family History Brother(s) Family Medical History: Cancer Mother Family Medical History: Cancer, Deep Vein Thrombosis (DVT), Pulmonary Embolus Additional Family Medical History / Comment(s): STOMACH CANCER. Father Family Medical History: No Reported History Additional Family Medical History / Comment(s): COMMITTED SUICIDE. General Exam - General Exam Comments Initial Comments: GENERAL: Patient is well-developed and well-nourished. Patient is nontoxic and well- hydrated and is in mild distress. ENT: Neck is soft and supple. No significant lymphadenopathy is noted. Oropharynx is clear. Moist mucous membranes. Neck has full range of motion without eliciting any pain. EYES: The sclera were anicteric and conjunctiva were pink and moist. Extraocular movements were intact and pupils were equal round and reactive to light. Eyelids were unremarkable. PULMONARY: Unlabored respirations. Good breath sounds bilaterally. No audible rales rhonchi or wheezing was noted. CARDIOVASCULAR: There is a regular rate and rhythm without any murmurs gallops or rubs. ABDOMEN: Soft and nontender with normal bowel sounds. SKIN: Skin is clear with no lesions or rashes and otherwise unremarkable. NEUROLOGIC: Patient is alert and oriented x3. Cranial nerves II through XII are grossly intact. Motor and sensory are also intact. Normal speech, volume and content. Symmetrical smile. MUSCULOSKELETAL: Normal extremities with adequate strength and full range of motion. LYMPHATICS: No significant lymphadenopathy is noted PSYCHIATRIC: Normal psychiatric evaluation. Course Vital Signs 01/28/25 01/28/25 01/28/25 09:30 11:04 12:06 Temperature 98.7 F Pulse Rate 86 86 85 Respiratory 17 18 19 Rate Blood Pressure 174/100 177/106 180/112 O2 Sat by Pulse 98 98 97 Oximetry Medical Decision Making - Medical Decision Making Was pt. sent in by a medical professional or institution (, PA, SAFETY PIN ASSEMBLING MACHINE OPERATOR, urgent care, hospital, or chcf...) When possible be specific @ -No Did you speak to anyone other than the patient for history (EMS, parent, family, police, friend...)? What history was obtained from this source @ -No Did you review nursing and triage notes (agree or disagree)? Why? @ -I reviewed and agree with nursing and triage notes Were old charts reviewed (outside hosp., previous admission, EMS record, old EKG, old radiological studies, urgent care reports/EKG's, chcf records)? Report findings @ -No old charts were reviewed Differential Diagnosis? @ -Gastritis, gastroenteritis, acute viral syndrome, hypertension urgency, hypertensive emergency, this is not an all-inclusive list EKG interpreted by me (3pts min.). @ -As above X-rays interpreted by me (1pt min.). @ -No CT interpreted by me (1pt min.). @ -CT of the brain shows no acute dramality U/S interpreted by me (1pt. min.). @ -None done What testing was considered but not performed or refused? (CT, X-rays, U/S, labs)? Why? @ -None What meds were considered but not given or refused? Why? @ -None Did you discuss the management of the patient with other professionals (professionals i.e. , PA, SAFETY PIN ASSEMBLING MACHINE OPERATOR, lab, RT, psych nurse, foster care social worker, police matron, teacher, community services officer, director of casework)? Give summary @ -No Was smoking cessation discussed for >3mins.? @ -No Was critical care preformed (if so, how long)? @ -No Were there social determinants of health that impacted care today? How? (Homelessness, low income, unemployed, alcoholism, drug addiction, transportation, low edu. Level, literacy, decrease access to med. care, snf, rehab)? @ -No Was there de-escalation of care discussed even if they declined (Discuss DNR or withdrawal of care, Hospice)? DNR status @ -No What co-morbidities impacted this encounter? (DM, HTN, Smoking, COPD, CAD, Cancer, CVA, ARF, Chemo, Hep., AIDS, mental health diagnosis, sleep apnea, morbid obesity)? @ -None Was patient admitted / discharged? Hospital course, mention meds given and route, prescriptions, significant lab abnormalities, going to OR and other pertinent info. @ -Patient was given hydralazine and labetalol to bring the blood pressure down and blood pressure came down nicely. Patient was given Zofran for the nausea en route but she still had nausea so I gave her Reglan in the emergency department and she was no longer nauseous and had no vomiting. Patient's blood work came back within normal range and she was feeling considerably better on discharge. Patient stated she had not been able to take her medicines because she been vomiting for 2 days so she will now be able to continue taking her blood pressure meds. Patient be sent home with Seb Undiagnosed new problem with uncertain prognosis? @ -No Drug Therapy requiring intensive monitoring for toxicity (Heparin, Nitro, Insulin, Cardizem)? @ -No Were any procedures done? @ -No Diagnosis/symptom? @ -Acute vomiting Acute, or Chronic, or Acute on Chronic? @ -Acute Uncomplicated (without systemic symptoms) or Complicated (systemic symptoms)? @ -Complicated Side effects of treatment? @ -No Exacerbation, Progression, or Severe Exacerbation? @ -No Poses a threat to life or bodily function? How? (Chest pain, [place], [place], pneumonia, PE, COPD, DKA, ARF, appy, cholecystitis, CVA, Diverticulitis, Homicidal, Suicidal, threat to staff... and all critical care pts) @ -No Diagnosis/symptom? @ -Hypertensive urgency Acute, or Chronic, or Acute on Chronic? @ -Acute Uncomplicated (without systemic symptoms) or Complicated (systemic symptoms)? @ -Complicated Side effects of treatment? @ -None Exacerbation, Progression, or Severe Exacerbation] @ -No Poses a threat to life or bodily function? @ -No - Lab Data Result diagrams: 01/28/25 10:38 01/28/25 10:38 Lab Results 01/28/25 01/28/25 Range/Units 10:38 10:38 WBC 5.80 (4.50-10.00) 10*3/uL RBC 4.40 (4.10-5.20) 10*6/uL Hgb 12.2 (12.0-15.0) g/dL Hct 36.5 L (37.2-46.3) % MCV 83.0 D (80.0-97.0) fL MCH 27.7 (27.0-32.0) pg MCHC 33.4 (32.0-37.0) g/dL Plt Count 211 (140-440) 10*3/uL MPV 10.5 (9.5-12.2) fL Immature Gran % (Auto) 0.2 % Neutrophils % 71.6 % Lymphocytes % 20.9 % Monocytes % 5.2 % Eosinophils % 1.4 % Basophils % 0.7 % Immature Gran # 0.01 (0.00-0.04) 10*3/uL Neutrophils # 4.16 (1.80-7.70) 10*3/uL Lymphocytes # 1.21 (0.90-5.00) 10*3/uL Monocytes # 0.30 (0.20-1.00) 10*3/uL Eosinophils # 0.08 (0.04-0.35) 10*3/uL Basophils # 0.04 (0.00-0.10) 10*3/uL Sodium 141 (137-145) mmol/L Potassium 3.3 L (3.5-5.1) mmol/L Chloride 105 (98-107) mmol/L Carbon Dioxide 25 (22-30) mmol/L Anion Gap 11 mmol/L BUN 9 (7-17) mg/dL Creatinine 0.59 (0.52-1.04) mg/dL Est GFR (CKD-EPI)AfAm >90 (>60 ml/min/1.73 sqM) Est GFR (CKD-EPI)NonAf 89 (>60 ml/min/1.73 sqM) Glucose 159 H (74-99) mg/dL Calcium 10.0 (8.4-10.2) mg/dL Total Bilirubin 0.6 (0.2-1.3) mg/dL AST 28 (14-36) U/L ALT 23 (4-34) U/L Alkaline Phosphatase 82 (38-126) U/L Total Protein 7.5 (6.3-8.2) g/dL Albumin 4.8 (3.5-5.0) g/dL Lipase 145 (23-300) U/L Disposition Clinical Impression: Acute vomiting, Hypertensive urgency Disposition: HOME SELF-CARE Condition: Good Instructions (If sedation given, give patient instructions): Acute Nausea and Vomiting (ED), Chronic Hypertension (ED), Hypertension (ED) Is patient prescribed a controlled substance at d/c from ED?: No Referrals: Damir Hernandez DO [Primary Care Provider] - 1-2 days
[2025-01-28] MEDS: METOCLOPRAMIDE 5 MG/ML 2 ML VIAL IVP STA (10:57)
[2025-01-28 10:58] LABS: Basophils # (A) 0.04 10*3/uL (0.00-0.10); Basophils % (A) 0.7 %; Eosinophils # (A) 0.08 10*3/uL (0.04-0.35); Eosinophils % (A) 1.4 %; HCT 36.5 % (37.2-46.3); HGB 12.2 g/dL (12.0-15.0); Lymphocytes # (A) 1.21 10*3/uL (0.90-5.00); Lymphocytes % (A) 20.9 %; MCH 27.7 pg (27.0-32.0); MCHC 33.4 g/dL (32.0-37.0); Mean Platelet Volume 10.5 fL (9.5-12.2); Monocytes % (A) 5.2 %; Neutrophils # (A) 4.16 10*3/uL (1.80-7.70); Neutrophils % (A) 71.6 %; Platelet Count 211 10*3/uL (140-440); RDW 14.2 % (11.5-14.5)
[2025-01-28] MEDS: SODIUM CHLORIDE 0.9% 1,000 ML IV ONE (10:58)
[2025-01-28 11:14] LABS: ALT 23 U/L (4-34); AST 28 U/L (14-36); African American GFR (CKD) >90 (>60 ml/min/1.73 sqM); Albumin 4.8 g/dL (3.5-5.0); Alkaline Phosphatase 82 U/L (38-126); Anion Gap 11 mmol/L; Blood Urea Nitrogen 9 mg/dL (7-17); Carbon Dioxide 25 mmol/L (22-30); Chloride 105 mmol/L (98-107); Glucose 159 mg/dL (74-99); Lipase 145 U/L (23-300); Non-African American GFR(CKD) 89 (>60 ml/min/1.73 sqM); Potassium 3.3 mmol/L (3.5-5.1); Sodium 141 mmol/L (137-145); Total Bilirubin 0.6 mg/dL (0.2-1.3); Total Protein 7.5 g/dL (6.3-8.2)
[2025-01-28] MEDS: LOSARTAN 50 MG TAB PO STA (11:20)
[2025-01-28] MEDS: METOPROLOL SUCCINATE (ER) 100 MG TAB.ER.24H PO STA (11:20)
[2025-01-28] MEDS: ACETAMINOPHEN TAB 500 MG TAB PO STA (12:19)
--- NOTE | 2025-01-28 12:56 | CT ---
EXAMINATION TYPE: CT brain wo con CT DLP: 1135.4 mGycm, Automated exposure control for dose reduction was used. DATE OF EXAM: 01/28/2025 12:47 PM COMPARISON: MRI brain 12/31/2022, CT brain 12/30/2022 CLINICAL INDICATION:Female, 79 years old with history of Headache, high blood pressure, YA, Hypertens ion. TECHNIQUE: Brain: Multiple axial CT images of the brain were obtained without IV contrast. . Coronal and sagitta l reformats reviewed. FINDINGS: Brain: Extra-axial spaces: No abnormal extra-axial fluid collections. Ventricular system: Within normal limits Cerebral parenchyma: No acute intraparenchymal hemorrhage or mass effect. The mark-white junction is well differentiated. Scattered hypoattenuating areas are seen within the periventricular white matte r. Cerebellum: Unremarkable. Mass effect: No evidence of midline shift. Intracranial vasculature: Atherosclerotic calcifications of the intracranial vessels. Soft tissues: Normal. Calvarium/osseous structures: No depressed skull fracture. Benign hyperostosis frontalis noted. Paranasal sinuses and mastoid air cells: Post resection changes within the right mastoid. No mastoid effusion is identified. Mucosal thickening of the left sphenoid sinus and right maxillary sinus. The remaining paranasal sinuses are clear. Visualized orbits: Bilateral aphakia IMPRESSION: 1. No acute intracranial process. 2. Nonspecific mild white matter changes, likely secondary to chronic small vessel ischemic disease. [facility], , 01/28/2025 12:54 PM
[2025-01-28 14:03] VITALS: RESP 18; TEMP 98.6
[2025-01-28] MEDS: DIPHENOX-ATROP STARTER PACK 8 TAB BTL PO STA (14:24)
[2025-01-28] MEDS: ONDANSETRON 4 MG ODT STARTER PACK 2 TAB BTL PO STA (14:25)
[2025-01-28 14:35] VITALS: BP 186/101; PULSE 85
== END 2025-01-28 14:35 | disposition home or self-care (01) ==
LOC: EC 09:26
DX: I16.0 Hypertensive urgency (principal); Z87.891 Personal history of nicotine dependence; Z88.0 Allergy status to penicillin; Z88.6 Allergy status to analgesic agent; Z91.09 Other allergy status, other than to drugs and biological substances; Z88.8 Allergy status to other drugs, medicaments and biological substances
CPT/HCPCS: 96374; 96361; 36415; 80053; 83690; 85025; 70450; 99285; J2765; S0119

== ENCOUNTER → 2025-02-04 | Outpatient (CLI) | payer MEDICARE ==
--- NOTE | 2025-02-04 15:54 | XR ---
EXAMINATION TYPE: XR abdomen 2V DATE OF EXAM: 02/04/2025 3:45 PM COMPARISON: 12/26/2024 CLINICAL INDICATION: Female, 79 years old with history of R10.9 UNSPECIFIED ABDOMINAL PAIN; MERGED WITH [facility] TECHNIQUE: Two views of the abdomen were obtained. FINDINGS: Moderate amount stool throughout the colon. The bowel gas pattern is nonspecific without d ilated loops of small or large bowel. . Fecal material and gas are demonstrated throughout the colon and rectum. There is no evidence for organomegaly or pneumoperitoneum. No acute osseous process. No abnormal calcifications are present. Right hip arthroplasty appears intact. Scattered surgical anchors along the abdomen. Loop recorder is present. IMPRESSION: Nonspecific bowel gas pattern without radiographic evidence for acute process. [facility], , 02/04/2025 3:51 PM
== END | disposition home or self-care (01) ==
LOC: RADXRMAIN 15:19
PROVIDERS: ATTEND Family Medicine
DX: R10.9 Unspecified abdominal pain (principal); R14.3 Flatulence
CPT/HCPCS: 74019